=== PATIENT | female | born 1965 | race African-American/Black ===

== ENCOUNTER 2016-12-01 08:33 | Inpatient (IN) | payer SELFPAY ==
[~2016-12-01] VITALS: Ht 170.2 cm; Wt 70.3 kg
[~2016-12-01 08:33] MED LIST: AMLO10TA4 PO; ATOR10TA60 PO; CITA10TA8 PO; CITA20TA5 PO; DULO60CA44 PO; ESOM40CA PO; HYDR-971 PO; METO5TAB PO; OMEP20TA PO; ONDA4TAB10 SL; PANT40TA5 PO; PHEN100T82 PO; QUET100T4 PO; SUCR1TAB29 PO; TRAM50TA PO
[2016-12-01] MEDS ORDERED: IV NORMAL SALINE 1000ML BAG 1,000 ML IV SCH (08:47)
--- NOTE | 2016-12-01 08:57 | PHYS DOC ---
Past Medical History Past Medical History: Anxiety, Depression, GERD, High Cholesterol, Hypertension , P.U.D., URI, Other Additional Past Medical Histor: h. pylori Past Surgical History: Tubal ligation, Other Additional Past Surgical Histo: foot surgery, explor. adominal sx Alcohol Use: None Drug Use: Marijuana Adult General Chief Complaint Chief Complaint: ABDOMINAL PAIN HPI HPI Patient is a 51 year old female who presents with abdominal pain and vomiting. Patient states her symptoms started last night. Patient said too numerous to count episodes of vomiting. Patient states that she started passing coffee- ground emesis this morning. Patient has history of peptic ulcer disease and gastroparesis. Patient states that she has followed with Dr. Mccarty of gastroenterology in the past but has not seen him in several months. Patient states that she ran out of her medications for her stomach 5 days ago and was unable to refill them due to inability to pay for her medication. Patient rates the pain in her stomach as 10 out of 10 and states that it is located in her upper abdomen. Patient denies radiation of pain. Patient has not had any associated fever. Patient has not been able to tolerate any oral intake since onset of symptoms. Patient has not taken any medications to help with her symptoms. Review of Systems Review of Systems Constitutional: Denies fever or chills [] Eyes: Denies change in visual acuity, redness, or eye pain [] HENT: Denies nasal congestion or sore throat [] Respiratory: Denies cough or shortness of breath [] Cardiovascular: Denies chest pain or edema [] GI: Abdominal pain, nausea, vomiting, hematemesis [] : Denies dysuria or hematuria [] Musculoskeletal: Denies back pain or joint pain [] Integument: Denies rash or skin lesions [] Neurologic: Denies headache, focal weakness or sensory changes [] Current Medications Current Medications Current Medications Medications (Trade) Dose Ordered Sig/Emile Start Time Stop Time Status Last Admin Dose Admin Albuterol/ Ipratropium 3 ml 3 ml RTQID 12/01/16 10:00 12/02/16 09:59 Famotidine (Pepcid) 20 mg 1X ONCE 12/01/16 09:00 12/01/16 09:00 DC Fentanyl Citrate (Fentanyl 2ml Vial) 50 mcg PRN Q2HR PRN 12/01/16 09:30 12/02/16 09:29 Fentanyl Citrate 50 mcg 50 mcg PRN Q15MIN PRN 12/01/16 09:00 12/02/16 08:59 12/01/16 09:21 50 MCG Hydralazine HCl (Apresoline) 10 mg 1X ONCE 12/01/16 09:30 12/01/16 09:31 DC 12/01/16 09:37 10 MG Metoclopramide HCl (Reglan) 10 mg 1X ONCE 12/01/16 09:00 12/01/16 09:01 DC 12/01/16 08:59 10 MG Ondansetron HCl (Zofran) 4 mg PRN Q8HRS PRN 12/01/16 09:30 12/02/16 09:29 Pantoprazole Sodium (Protonix Vial) 40 mg 1X ONCE 12/01/16 09:00 12/01/16 09:01 DC 12/01/16 09:16 40 MG Pantoprazole Sodium 80 mg/ Sodium Chloride 100 ml @ 10 mls/hr Q10H 12/01/16 09:30 Potassium Chloride/Dextrose/ Sod Cl (KCl 20 Meq In D5W-1/2 NS) 1,000 ml @ 125 mls/hr Q8H 12/01/16 09:45 Sodium Chloride (Iv Sodium Chloride 0.9% 1000ml Bag) 1,000 ml @ 1,000 mls/hr Q1H 12/01/16 08:47 12/01/16 09:46 DC 12/01/16 09:19 1,000 MLS/HR Allergies Allergies Allergies Coded Allergies Type Severity Reaction Last Updated Verified Penicillins Allergy Intermediate 12/01/16 Yes Physical Exam Physical Exam Constitutional: Alert, afebrile, actively vomiting. [] HENT: Normocephalic, atraumatic, bilateral external ears normal, oropharynx dry , no oral exudates, nose normal. [] Eyes: PERRLA, EOMI, conjunctiva normal, no discharge. [] Neck: Normal range of motion, no tenderness, supple, no stridor. [] Cardiovascular: Tachycardia, regular rhythm, no murmur [] Lungs & Thorax: Bilateral breath sounds clear to auscultation [] Abdomen: Bowel sounds normal, soft, epigastric tenderness to palpation with guarding, no rebound tenderness, no masses, no pulsatile masses. [] Skin: Warm, dry, no erythema, no rash. [] Back: No tenderness, no CVA tenderness. [] Extremities: No tenderness, no cyanosis, no clubbing, ROM intact, no edema. [] Neurologic: Alert and oriented X 3, normal motor function, normal sensory function, no focal deficits noted. [] Current Patient Data Vital Signs Vital Signs Date Time Temp Pulse Resp B/P Pulse Ox O2 Delivery O2 Flow Rate FiO2 12/01/16 09:37 71 224/113 12/01/16 09:21 18 100 Room Air 12/01/16 08:35 97.9 97.9 Lab Values Laboratory Tests Test 12/01/16 08:40 White Blood Count 8.2x10^3/uL (4.0-11.0) Red Blood Count 5.41x10^6/uL (3.50-5.40) H Hemoglobin 14.5g/dL (12.0-15.5) Hematocrit 45.1% (36.0-47.0) Mean Corpuscular Volume 83fL (79-100) Mean Corpuscular Hemoglobin 27pg (25-35) Mean Corpuscular Hemoglobin Concent 32g/dL (31-37) Red Cell Distribution Width 16.0% (11.5-14.5) H Platelet Count 208x10^3/uL (140-400) Neutrophils (%) (Auto) 61% (31-73) Lymphocytes (%) (Auto) 33% (24-48) Monocytes (%) (Auto) 5% (0-9) Eosinophils (%) (Auto) 0% (0-3) Basophils (%) (Auto) 1% (0-3) Neutrophils # (Auto) 5.0x10^3uL (1.8-7.7) Lymphocytes # (Auto) 2.7x10^3/uL (1.0-4.8) Monocytes # (Auto) 0.4x10^3/uL (0.0-1.1) Eosinophils # (Auto) 0.0x10^3/uL (0.0-0.7) Basophils # (Auto) 0.0x10^3/uL (0.0-0.2) Sodium Level 144mmol/L (136-145) Potassium Level 2.5mmol/L (3.5-5.1) *L Chloride Level 104mmol/L (98-107) Carbon Dioxide Level 23mmol/L (21-32) Anion Gap 17 (6-14) H Blood Urea Nitrogen 11mg/dL (7-20) Creatinine 0.9mg/dL (0.6-1.0) Estimated GFR (Cockcroft-Gault) 79.6 BUN/Creatinine Ratio 12 (6-20) Glucose Level 164mg/dL (70-99) H Calcium Level 10.4mg/dL (8.5-10.1) H Total Bilirubin 0.7mg/dL (0.2-1.0) Aspartate Amino Transferase (AST) 15U/L (15-37) Alanine Aminotransferase (ALT) 14U/L (14-59) Alkaline Phosphatase 113U/L (46-116) Creatine Kinase 136U/L (26-192) Creatine Kinase MB (Mass) 0.6ng/mL (0.0-3.6) Creatine Kinase MB Relative Index 0.4% (0-4) Troponin I Quantitative < 0.017ng/mL (0.000-0.055) Total Protein 9.3g/dL (6.4-8.2) H Albumin 4.2g/dL (3.4-5.0) Albumin/Globulin Ratio 0.8 (1.0-1.7) L Lipase 114U/L (73-393) Laboratory Tests 12/01/16 08:40 Laboratory Tests 12/01/16 08:40 EKG EKG Interpreted by me: Heart rate 69, sinus rhythm, normal intervals, incomplete right bundle branch block, no acute ST/T-wave abnormalities present [] Radiology/Procedures Radiology/Procedures [facility] [address] [place] [address] IMAGING REPORT Signed PATIENT: DANIELA MANUEL ACCOUNT: [id number] : 1965 LOCATION: ER AGE: 51 SEX: F EXAM STATUS: REG ER ORD. PHYSICIAN: NABEEL QUIROGA MD REASON: abdominal pain, vomiting PROCEDURE: ACUTE ABDOMEN SERIES Examination: Acute abdomen series History: History of abdominal pain, vomiting blood Comparison: 02/15/2016 Findings: The cardiomediastinal silhouette grossly appears unremarkable. No evidence of free air noted under the hemidiaphragms. The bowel gas pattern appears unremarkable. Feces and gas project in the region of the rectum. Impression: 1. No acute cardiopulmonary findings. 2. Unremarkable bowel gas pattern. DICTATED and SIGNED BY: SAPPHIRE RADER MD DATE: 12/01/16 0934 CC: NABEEL QUIROGA MD; NO PCP ~ [] Course & Med Decision Making Course & Med Decision Making Pertinent Labs and Imaging studies reviewed. (See chart for details) Patient started on IV Reglan, Protonix, fentanyl, and IV fluids. Patient remained hypertensive requiring treatment with IV hydralazine. Patient continues to have abdominal pain and vomiting at this time. Patient does have mild but persistent hematemesis. Patient also found to have critically low potassium level at 2.5. The patient will require admission to the hospital for treatment of symptoms, electrolyte replacement through IV, and bowel rest. I spoke with Dr. Contreras who accepted care patient in hospital. A consult was placed to Dr. Mccarty of gastroenterology to follow with patient in hospital. Dragon Disclaimer Dragon Disclaimer This electronic medical record was generated, in whole or in part, using a voice recognition dictation system. Departure Departure Impression: Primary Impression: Intractable abdominal pain Additional Impressions: Vomiting Hypokalemia Accelerated hypertension Hematemesis Peptic ulcer disease Diabetes mellitus Disposition: 09 ADMITTED INPATIENT Admitting Physician: Other Condition: STABLE Referrals: NO PCP (PCP) Problem Qualifiers Additional Impressions: Vomiting Vomiting type: unspecified Vomiting Intractability: intractable Nausea presence: with nausea Qualified Code: R11.2 - Nausea with vomiting, unspecified Hematemesis Nausea presence: with nausea Qualified Code: K92.0 - Hematemesis Diabetes mellitus Diabetes mellitus type: type 2 Diabetes mellitus complication status: with hyperglycemia Diabetes mellitus half-way insulin use: unspecified intermodal customer service insulin use status Qualified Code: E11.65 - Type 2 diabetes mellitus with hyperglycemia NABEEL QUIROGA MD Dec 01, 2016 08:57
[2016-12-01] MEDS ORDERED: FAMOTIDINE 20 MG/2 ML VIAL IVP ONE (09:00)
[2016-12-01] MEDS ORDERED: PANTOPRAZOLE IV PUSH 40 MG VIAL. IVP ONE (09:00)
[2016-12-01] MEDS ORDERED: ONDANSETRON PF 4 MG/2 ML VIAL. IV ONE (09:00)
[2016-12-01] MEDS ORDERED: METOCLOPRAMIDE HCL 10 MG/2 ML VIAL. IV ONE (09:00)
[2016-12-01] MEDS: FENTANYL PF 100 MCG/2 ML VIAL. IV PRN ×5 (09:01→16:57)
[2016-12-01 09:05] LABS: BASO % 1 % (0-3); EOS % 0 % (0-3); HEMATOCRIT 45.1 % (36.0-47.0); HEMOGLOBIN 14.5 g/dL (12.0-15.5); LYMPH # 2.7 x10^3/uL (1.0-4.8); LYMPH % 33 % (24-48); MEAN CORPUSCULAR HEMOGLOBIN 27 pg (25-35); MEAN CORPUSCULAR HGB CONC 32 g/dL (31-37); MEAN CORPUSCULAR VOLUME 83 fL (79-100); MONO % 5 % (0-9); NEUT % 61 % (31-73); PLATELET COUNT 208 x10^3/uL (140-400); RED BLOOD COUNT 5.41 x10^6/uL (3.50-5.40); WHITE BLOOD COUNT 8.2 x10^3/uL (4.0-11.0)
[2016-12-01 09:23] LABS: ALBUMIN 4.2 g/dL (3.4-5.0); ALBUMIN/GLOBULIN RATIO 0.8 (1.0-1.7); CALCIUM 10.4 mg/dL (8.5-10.1); CREATININE 0.9 mg/dL (0.6-1.0); GFR 79.6; TOTAL BILIRUBIN 0.7 mg/dL (0.2-1.0); TOTAL PROTEIN 9.3 g/dL (6.4-8.2)
[2016-12-01 09:26] LABS: POTASSIUM 2.5 mmol/L (3.5-5.1)
[2016-12-01] MEDS ORDERED: hydrALAZINE 20 MG/ML VIAL. IVP ONE (09:30)
[2016-12-01 09:31] LABS: CKMB INDEX 0.4 % (0-4); CKMB MASS 0.6 ng/mL (0.0-3.6)
--- NOTE | 2016-12-01 09:38 | RAD ---
Examination: Acute abdomen series History: History of abdominal pain, vomiting blood Comparison: 02/15/2016 Findings: The cardiomediastinal silhouette grossly appears unremarkable. No evidence of free air noted under the hemidiaphragms. The bowel gas pattern appears unremarkable. Feces and gas project in the region of the rectum. Impression: 1. No acute cardiopulmonary findings. 2. Unremarkable bowel gas pattern.
--- NOTE | 2016-12-01 09:43 | EKG ---
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
[2016-12-01 09:54] LABS: BILIRUBIN,URINE NEGATIVE (NEG); GLUCOSE,URINE 100 mg/dL (NEG); NITRITE,URINE NEGATIVE (NEG); PH,URINE 7.5; PROTEIN,URINE NEGATIVE (NEG-TRACE); UROBILINOGEN,URINE 0.2 mg/dL (0.2 mg/dL)
[2016-12-01] MEDS: POTASSIUM CL 20MEQ D5-0.45NACL 1,000 ML IV SCH ×2 (09:59→20:45)
--- NOTE | 2016-12-01 10:16 | ACF ---
Admission Forms Criteria ABDOMINAL PAIN Clinical Indications for Admission to Inpatient Care (Place 'X' for any and all applicable criteria): Admission is indicated for ANY ONE of the following(1)(2)(3)(4)(5): [X]I. Inpatient admission required rather than observation care (Also use Abdominal Pain: Observation Care, as appropriate) because of ANY ONE of the following: [X]a) Severe pain requiring acute inpatient management [ ]b) Identification of etiology/finding that requires inpatient care (eg, aortic dissection, free air) [ ]c) Absent bowel sounds with complete ileus(6) [ ]d) Suspected toxic megacolon [ ]e) Severe electrolyte abnormalities requiring inpatient care [ ]f) High fever or infection requiring inpatient admission as indicated by ANY ONE of following(7)(8): [ ] i) Appropriate outpatient or observational care antimicrobial treatment unavailable, not effective, or not feasible [ ] ii) Documented bacteremia [ ] iii) Temperature > 104.9 degrees F (oral) [ ] iv) T >103.1 F (oral) or < 96.8 F(rectal) that does not respond to all emergency treatment measures [ ]g) Signs of intestinal obstruction [B] [ ]h) Hemodynamic instability [ ]i) IV fluid to replace significant ongoing losses (greater than 3 L/m2 per day) (12)(13) [ ]j) Percutaneous or open drainage (eg, abscess, biliary tract ) procedures [ ]k) Parenteral nutrition regimen that must be implemented on inpatient basis [ ]l) Other condition,treatment or monitoring requiring inpatient admission. [ ]II. Peritoneal signs present [ ]III. Surgery needed that cannot be performed on an ambulatory basis. [ ]IV. Evaluation requires patient to not eat or drink for extended period ( eg, more than 24 hours). [ ]V. Contraindications and/or Inappropriate clinical situations for Observational Care in patients with abdominal pain, when ANY ONE of the following is required: [ ]a) Thorough evaluation is required to prevent catastrophic events due to delays in diagnosing (e.g.Mesenteric ischemia) 1,3 [ ]b) Patient with severe pathology or with chronic symptoms unlikely to improve in the ED stay (3) [ ]. General contraindications and/or Inappropriate clinical situations for Observational Care in patients with abdominal pain, when ANY ONE of the following is required: [ ]a) Prediction of prolongation of LOS based on ANY ONE of the following may be considered as a contraindication for observational care 2, 3, 4, 5, 6, 7, 8, 9, 10, 11 [ ]i) Age > 65 yrs. [ ]ii) Patient arriving by ambulance [ ]iii) Patient with high acuity [ ]iv) Patient requiring vital sign monitoring [ ]v) Patient on IV medication [ ]b) Systolic blood pressures 180mmHg 3,12 [ ]c) Patient with altered mental status including delirium and other alteration of consciousness, (3) [ ]d) Patient whose discharge disposition will be to a residential home or rehabilitation home should not be managed in Emergency Department Observation Unit. CMS rule requires 3 days hospital stay before such placement.3,13 [ ]e) Patient with failure to thrive due to broad array of etiologies 3,16,17 [ ]f) Inability to ambulate 3,14 Extended stay beyond goal length of stay may be needed for(2)(3): [ ]a) Persistent abdominal pain with suspected intra-abdominal process [ ]b) Diagnosed condition requiring continued stay (e.g., pancreatitis, complicated diverticulitis) [ ]c) Surgery (e.g., colectomy) The original [facility] content created by [employer] has been revised. The portions of the content which have been revised are identified through the use of italic text or in bold, and [facility] has neither reviewed nor approved the modified material.All other unmodified content is copyright [facility]. Please see references footnoted in the original [facility] edition 2016 Admission Criteria Met?: Yes QAMAR OSUNA Dec 01, 2016 10:16
[2016-12-01 10:30] LABS: BACTERIA,URINE FEW /HPF (0-FEW); SQUAMOUS EPITHELIAL CELL,UR FEW /LPF; WBC,URINE OCC /HPF (0-4)
[2016-12-01] MEDS: PANTOPRAZOLE SODIUM IV 80 MG in IV NORMAL SALINE 100ML 100 ML IV SCH ×2 (10:33→19:30)
[2016-12-01 11:00] VITALS: BP 194/117
[2016-12-01] MEDS ORDERED: GABA300C8 PO (11:09)
[2016-12-01] MEDS ORDERED: UBID200C4 PO (11:09)
[2016-12-01] MEDS ORDERED: AMLO10TA2 PO (11:16)
[2016-12-01] MEDS: ONDANSETRON PF 4 MG/2 ML VIAL. IV PRN ×2 (11:47→20:11)
[2016-12-01] MEDS: IPRATRPIUM/ALBUTEROL 0.5/2.5MG 3 ML NEBU. NEB SCH ×3 (12:17→19:39)
--- NOTE | 2016-12-01 14:29 | PDOC2 ---
GI CONSULT Reason For Consult: N, V, abdominal pain. HPI: HPI: 51 y/o female known to me. Admitted this occasion with epigastric pain, nausea and vomiting. H/o GERD and gastroparesis, formerly on PPI and metoclopramide though ran out due inability to afford, with current issues. Minor amount of blood in emesis. No melena or elevated BUN/Cr ratio. H/o prior EGDs at with H.pylori identified and treated, but never apparently documented ulcer. No h/o GB, liver or pancreatic issues. Smokes some, including MJ. Denies alcohol. No diarrhea, constipation, or hematochezia. H/o normal colonoscopy at some point, date unverified. PMH: PMH: HTN, depression, RA. Prior ORIF right ankle. FH: Family History: CAD, DM, Hypertension Social History: Smoke: <1 pack per day ALCOHOL: none Drugs: Marijuana ROS: GEN: Denies fevers, chills, sweats HEENT: Denies blurred vision, sore throat CV: Denies chest pain RESP: Denies shortness of air, cough GI: Per HPI : Denies hematuria, dysuria ENDO: Denies weight changes NEURO: Denies confusion, dizziness MSK: Denies weakness, joint pain/swelling SKIN: Denies jaundice, pruritus VItals: Vitals: Vital Signs Date Time Temp Pulse Resp B/P Pulse Ox O2 Delivery O2 Flow Rate FiO2 12/01/16 14:15 14 95 Room Air 12/01/16 11:00 97.9 103 194/117 97.9 Labs: Labs: Laboratory Tests Test 12/01/16 08:40 12/01/16 09:45 White Blood Count 8.2x10^3/uL (4.0-11.0) Red Blood Count 5.41x10^6/uL (3.50-5.40) Hemoglobin 14.5g/dL (12.0-15.5) Hematocrit 45.1% (36.0-47.0) Mean Corpuscular Volume 83fL (79-100) Mean Corpuscular Hemoglobin 27pg (25-35) Mean Corpuscular Hemoglobin Concent 32g/dL (31-37) Red Cell Distribution Width 16.0% (11.5-14.5) Platelet Count 208x10^3/uL (140-400) Neutrophils (%) (Auto) 61% (31-73) Lymphocytes (%) (Auto) 33% (24-48) Monocytes (%) (Auto) 5% (0-9) Eosinophils (%) (Auto) 0% (0-3) Basophils (%) (Auto) 1% (0-3) Neutrophils # (Auto) 5.0x10^3uL (1.8-7.7) Lymphocytes # (Auto) 2.7x10^3/uL (1.0-4.8) Monocytes # (Auto) 0.4x10^3/uL (0.0-1.1) Eosinophils # (Auto) 0.0x10^3/uL (0.0-0.7) Basophils # (Auto) 0.0x10^3/uL (0.0-0.2) Sodium Level 144mmol/L (136-145) Potassium Level 2.5mmol/L (3.5-5.1) Chloride Level 104mmol/L (98-107) Carbon Dioxide Level 23mmol/L (21-32) Anion Gap 17 (6-14) Blood Urea Nitrogen 11mg/dL (7-20) Creatinine 0.9mg/dL (0.6-1.0) Estimated GFR (Cockcroft-Gault) 79.6 BUN/Creatinine Ratio 12 (6-20) Glucose Level 164mg/dL (70-99) Calcium Level 10.4mg/dL (8.5-10.1) Total Bilirubin 0.7mg/dL (0.2-1.0) Aspartate Amino Transf (AST/SGOT) 15U/L (15-37) Alanine Aminotransferase (ALT/SGPT) 14U/L (14-59) Alkaline Phosphatase 113U/L (46-116) Creatine Kinase 136U/L (26-192) Creatine Kinase MB (Mass) 0.6ng/mL (0.0-3.6) Creatine Kinase MB Relative Index 0.4% (0-4) Troponin I Quantitative < 0.017ng/mL (0.000-0.055) Total Protein 9.3g/dL (6.4-8.2) Albumin 4.2g/dL (3.4-5.0) Albumin/Globulin Ratio 0.8 (1.0-1.7) Lipase 114U/L (73-393) Urine Collection Type Unknown Urine Color Yellow Urine Clarity Clear Urine pH 7.5 Urine Specific [place] 1.010 Urine Protein Negativemg/dL (NEG-TRACE) Urine Glucose (UA) 100mg/dL (NEG) Urine Ketones (Stick) 15mg/dL (NEG) Urine Blood Negative (NEG) Urine Nitrite Negative (NEG) Urine Bilirubin Negative (NEG) Urine Urobilinogen Dipstick 0.2mg/dL (0.2 mg/dL) Urine Leukocyte Esterase Negative (NEG) Urine RBC 3-5/HPF (0-2) Urine WBC Occ/HPF (0-4) Urine Squamous Epithelial Cells Few/LPF Urine Bacteria Few/HPF (0-FEW) Urine Mucus Slight/LPF Normal hemoglobin. Allergies: Coded Allergies: Penicillins (Verified Allergy, Intermediate, 12/01/16) Medications: Current Medications Medications (Trade) Dose Ordered Sig/Emile Route PRN Reason Start Time Stop Time Status Last Admin Dose Admin Fentanyl Citrate 50 mcg 50 mcg PRN Q15MIN PRN IV PAIN GREATER THAN 11/2512/01/16 09:00 12/02/16 08:59 12/01/16 10:31 Sodium Chloride (Iv Sodium Chloride 0.9% 1000ml Bag) 1,000 ml @ 1,000 mls/hr Q1H IV 12/01/16 08:47 12/01/16 09:46 DC 12/01/16 09:19 Metoclopramide HCl (Reglan) 10 mg 1X ONCE IV 12/01/16 09:00 12/01/16 09:01 DC 12/01/16 08:59 Pantoprazole Sodium (Protonix Vial) 40 mg 1X ONCE IVP 12/01/16 09:00 12/01/16 09:01 DC 12/01/16 09:16 Hydralazine HCl (Apresoline) 10 mg 1X ONCE IVP 12/01/16 09:30 12/01/16 09:31 DC 12/01/16 09:37 Ondansetron HCl (Zofran) 4 mg PRN Q8HRS PRN IV NAUSEA/VOMITING 12/01/16 09:30 12/02/16 09:29 12/01/16 11:47 Fentanyl Citrate (Fentanyl 2ml Vial) 50 mcg PRN Q2HR PRN IV PAIN 12/01/16 09:30 12/02/16 09:29 12/01/16 14:15 Albuterol/ Ipratropium 3 ml 3 ml RTQID NEB 12/01/16 10:00 12/02/16 09:59 12/01/16 12:17 Pantoprazole Sodium 80 mg/ Sodium Chloride 100 ml @ 10 mls/hr Q10H IV 12/01/16 09:30 12/01/16 10:33 Potassium Chloride/Dextrose/ Sod Cl (KCl 20 Meq In D5W-1/2 NS) 1,000 ml @ 125 mls/hr Q8H IV 12/01/16 09:45 12/01/16 09:59 Imaging: Imaging: Acute abdominal series unremarkable. PE: GEN: Appears uncomfortable, but in NAD. HEENT: Atraumatic, PERRLA LUNGS: CTAB HEART: RRR, no murmurs ABD: NABS, soft with primarily epigastric tenderness, no masses EXTREMITY: No edema SKIN: No rashes, no jaundice NEURO/PSYCH: A & O 3 A/P: A/P: IMP: 1. GERD/gastroparesis with recurrent symptoms due to financial medical non- compliance. 2. H/o H.pylori, treated. 3. Normal prior colonoscopy. REC: 1. IV PPI and metoclopramide until able to take po, then po transition. Would use Reglan suspension if possible as better emptying from stomach. 2. Observe for any meaningful UGI bleeding; would withhold EGD unless occurs as unlikely to alter therapy. Thank you for allowing me to assist in the care of this patient. Please call if questions. KATIE GOMEZ MD Dec 01, 2016 14:29
[2016-12-01] MEDS ORDERED: PROMETHAZINE 25 MG in IV NORMAL SALINE 50ML 50 ML IV PRN (14:45)
[2016-12-01] MEDS ORDERED: ENALAPRILAT 2.5 MG/2 ML VIAL. IV PRN (14:45)
[2016-12-01 15:02] VITALS: BP 222/127
[2016-12-01] MEDS ORDERED: POTASSIUM CHLORIDE 10MEQ 100 ML IV SCH (17:00)
[2016-12-01 19:00] VITALS: BP 197/124
[2016-12-01] MEDS ORDERED: hydrALAZINE 20 MG/ML VIAL. IVP PRN (19:00)
[2016-12-01] MEDS: POTASSIUM CHLORIDE 10MEQ 100 ML IV SCH (20:28)
[2016-12-01 21:00] VITALS: BP 154/116
[2016-12-01] MEDS: GABAPENTIN 300 MG CAPSULE. PO SCH (21:54)
[2016-12-01] MEDS: METOCLOPRAMIDE HCL 10 MG/2 ML VIAL. IV SCH ×2 (21:55→22:00)
--- NOTE | 2016-12-01 22:28 | HP ---
ADMIT DATE: 12/01/2016 CHIEF COMPLAINT: Nausea, vomiting, abdominal pain. HISTORY OF PRESENT ILLNESS: The patient is a 51-year-old -Thai woman who presented to the Emergency Room with epigastric pain, nausea, vomiting. This actually is a recurrent admission reason for her. She has known GERD as well as gastroparesis, although she ran out of her PPI and Reglan due to inability to afford. At this moment, likely prompted current symptoms. She denies any hematemesis, any melena any hematochezia. She relates that she recently had an EGD at during which H. pylori was found and treated. She denies any history of pancreatic disease or gallbladder stones. PAST MEDICAL HISTORY: GERD, gastroparesis, hypertension, depression, rheumatoid arthritis, status post ORIF of right ankle. FAMILY HISTORY: CAD, diabetes, hypertension. SOCIAL HISTORY: Lives with her mother, smokes less than 1 pack a day. Denies any alcohol use, positive for cannabis. ALLERGIES: PENICILLIN. MEDICATIONS: MAR reconciled with home medications. REVIEW OF SYSTEMS: The patient positive as per HPI. Denies any fevers, chills. Denies any myalgias, arthralgias. The rest of organ system review is negative. PHYSICAL EXAMINATION: VITAL SIGNS: From today show a blood pressure of 222/127, heart rate of 91, respiratory rate at 20. She is afebrile. GENERAL: This is a 51-year-old -Thai woman with GERD, gastroparesis, hypertension who presents after running out of her Reglan and PPI due to financial issues. She will be admitted, placed on IV fluids, IV Reglan around the clock to help with gastroparesis, Zofran p.r.n. for additional nausea. We will monitor her electrolytes and replete as indicated. Potassium currently is severely depleted. We will give IV as soon as access is established. Currently in hypertensive urgency. We will start hydralazine IV p.r.n. for the time being. Restart home medications when able to take p.o. DOMENICO BLANTON MD DR: MYAH/lev JOB#: [id number] / [id number] SALAS
[2016-12-01 23:00] VITALS: BP 171/120
[2016-12-02] VITALS (9 sets, daily range): BP systolic 97–193; BP diastolic 70–125
[2016-12-02] MEDS: FENTANYL PF 100 MCG/2 ML VIAL. IV PRN (00:23)
[2016-12-02] MEDS: POTASSIUM CHLORIDE 10MEQ 100 ML IV SCH ×7 (01:02→06:21)
[2016-12-02 05:01] LABS: BASO # 0.1 x10^3/uL (0.0-0.2); BASO % 0 % (0-3); EOS % 0 % (0-3); HEMATOCRIT 50.8 % (36.0-47.0); HEMOGLOBIN 16.1 g/dL (12.0-15.5); LYMPH # 2.4 x10^3/uL (1.0-4.8); LYMPH % 16 % (24-48); MEAN CORPUSCULAR HEMOGLOBIN 27 pg (25-35); MEAN CORPUSCULAR HGB CONC 32 g/dL (31-37); MEAN CORPUSCULAR VOLUME 83 fL (79-100); MONO % 6 % (0-9); NEUT % 78 % (31-73); PLATELET COUNT 227 x10^3/uL (140-400); RED BLOOD COUNT 6.09 x10^6/uL (3.50-5.40); RED CELL DISTRIBUTION WIDTH 16.8 % (11.5-14.5); WHITE BLOOD COUNT 15.3 x10^3/uL (4.0-11.0)
[2016-12-02 05:13] LABS: CALCIUM 10.7 mg/dL (8.5-10.1); CREATININE 1.2 mg/dL (0.6-1.0); GFR 57.1; POTASSIUM 3.7 mmol/L (3.5-5.1)
[2016-12-02] MEDS: PANTOPRAZOLE SODIUM IV 80 MG in IV NORMAL SALINE 100ML 100 ML IV SCH ×2 (05:30→15:30)
[2016-12-02] MEDS: METOCLOPRAMIDE HCL 10 MG/2 ML VIAL. IV SCH ×3 (07:02→21:17)
[2016-12-02] MEDS: PANTOPRAZOLE 40 MG TABLET. PO SCH ×2 (09:22→17:16)
--- NOTE | 2016-12-02 09:22 | PDOC ---
G I PROGRESS NOTE Subjective Some nausea, but no further vomiting. NO blood seen. Physical Exam Lungs clear. RRR Abdomen soft with mild epigastric tenderness. Review of Relevant I have reviewed the following items starr (where applicable) has been applied. Labs Laboratory Tests Test 12/01/16 08:40 12/01/16 09:45 12/02/16 03:31 White Blood Count 8.2x10^3/uL (4.0-11.0) 15.3x10^3/uL (4.0-11.0) Red Blood Count 5.41x10^6/uL (3.50-5.40) 6.09x10^6/uL (3.50-5.40) Hemoglobin 14.5g/dL (12.0-15.5) 16.1g/dL (12.0-15.5) Hematocrit 45.1% (36.0-47.0) 50.8% (36.0-47.0) Mean Corpuscular Volume 83fL (79-100) 83fL (79-100) Mean Corpuscular Hemoglobin 27pg (25-35) 27pg (25-35) Mean Corpuscular Hemoglobin Concent 32g/dL (31-37) 32g/dL (31-37) Red Cell Distribution Width 16.0% (11.5-14.5) 16.8% (11.5-14.5) Platelet Count 208x10^3/uL (140-400) 227x10^3/uL (140-400) Neutrophils (%) (Auto) 61% (31-73) 78% (31-73) Lymphocytes (%) (Auto) 33% (24-48) 16% (24-48) Monocytes (%) (Auto) 5% (0-9) 6% (0-9) Eosinophils (%) (Auto) 0% (0-3) 0% (0-3) Basophils (%) (Auto) 1% (0-3) 0% (0-3) Neutrophils # (Auto) 5.0x10^3uL (1.8-7.7) 11.9x10^3uL (1.8-7.7) Lymphocytes # (Auto) 2.7x10^3/uL (1.0-4.8) 2.4x10^3/uL (1.0-4.8) Monocytes # (Auto) 0.4x10^3/uL (0.0-1.1) 1.0x10^3/uL (0.0-1.1) Eosinophils # (Auto) 0.0x10^3/uL (0.0-0.7) 0.0x10^3/uL (0.0-0.7) Basophils # (Auto) 0.0x10^3/uL (0.0-0.2) 0.1x10^3/uL (0.0-0.2) Sodium Level 144mmol/L (136-145) 142mmol/L (136-145) Potassium Level 2.5mmol/L (3.5-5.1) 3.7mmol/L (3.5-5.1) Chloride Level 104mmol/L (98-107) 101mmol/L (98-107) Carbon Dioxide Level 23mmol/L (21-32) 22mmol/L (21-32) Anion Gap 17 (6-14) 19 (6-14) Blood Urea Nitrogen 11mg/dL (7-20) 14mg/dL (7-20) Creatinine 0.9mg/dL (0.6-1.0) 1.2mg/dL (0.6-1.0) Estimated GFR (Cockcroft-Gault) 79.6 57.1 BUN/Creatinine Ratio 12 (6-20) Glucose Level 164mg/dL (70-99) 121mg/dL (70-99) Calcium Level 10.4mg/dL (8.5-10.1) 10.7mg/dL (8.5-10.1) Total Bilirubin 0.7mg/dL (0.2-1.0) Aspartate Amino Transf (AST/SGOT) 15U/L (15-37) Alanine Aminotransferase (ALT/SGPT) 14U/L (14-59) Alkaline Phosphatase 113U/L (46-116) Creatine Kinase 136U/L (26-192) Creatine Kinase MB (Mass) 0.6ng/mL (0.0-3.6) Creatine Kinase MB Relative Index 0.4% (0-4) Troponin I Quantitative < 0.017ng/mL (0.000-0.055) Total Protein 9.3g/dL (6.4-8.2) Albumin 4.2g/dL (3.4-5.0) Albumin/Globulin Ratio 0.8 (1.0-1.7) Lipase 114U/L (73-393) Urine Collection Type Unknown Urine Color Yellow Urine Clarity Clear Urine pH 7.5 Urine Specific [place] 1.010 Urine Protein Negativemg/dL (NEG-TRACE) Urine Glucose (UA) 100mg/dL (NEG) Urine Ketones (Stick) 15mg/dL (NEG) Urine Blood Negative (NEG) Urine Nitrite Negative (NEG) Urine Bilirubin Negative (NEG) Urine Urobilinogen Dipstick 0.2mg/dL (0.2 mg/dL) Urine Leukocyte Esterase Negative (NEG) Urine RBC 3-5/HPF (0-2) Urine WBC Occ/HPF (0-4) Urine Squamous Epithelial Cells Few/LPF Urine Bacteria Few/HPF (0-FEW) Urine Mucus Slight/LPF Magnesium Level 1.6mg/dL (1.8-2.4) Laboratory Tests Test 12/01/16 09:45 12/02/16 03:31 Urine Collection Type Unknown Urine Color Yellow Urine Clarity Clear Urine pH 7.5 Urine Specific [place] 1.010 Urine Protein Negativemg/dL (NEG-TRACE) Urine Glucose (UA) 100mg/dL (NEG) Urine Ketones (Stick) 15mg/dL (NEG) Urine Blood Negative (NEG) Urine Nitrite Negative (NEG) Urine Bilirubin Negative (NEG) Urine Urobilinogen Dipstick 0.2mg/dL (0.2 mg/dL) Urine Leukocyte Esterase Negative (NEG) Urine RBC 3-5/HPF (0-2) Urine WBC Occ/HPF (0-4) Urine Squamous Epithelial Cells Few/LPF Urine Bacteria Few/HPF (0-FEW) Urine Mucus Slight/LPF White Blood Count 15.3x10^3/uL (4.0-11.0) Red Blood Count 6.09x10^6/uL (3.50-5.40) Hemoglobin 16.1g/dL (12.0-15.5) Hematocrit 50.8% (36.0-47.0) Mean Corpuscular Volume 83fL (79-100) Mean Corpuscular Hemoglobin 27pg (25-35) Mean Corpuscular Hemoglobin Concent 32g/dL (31-37) Red Cell Distribution Width 16.8% (11.5-14.5) Platelet Count 227x10^3/uL (140-400) Neutrophils (%) (Auto) 78% (31-73) Lymphocytes (%) (Auto) 16% (24-48) Monocytes (%) (Auto) 6% (0-9) Eosinophils (%) (Auto) 0% (0-3) Basophils (%) (Auto) 0% (0-3) Neutrophils # (Auto) 11.9x10^3uL (1.8-7.7) Lymphocytes # (Auto) 2.4x10^3/uL (1.0-4.8) Monocytes # (Auto) 1.0x10^3/uL (0.0-1.1) Eosinophils # (Auto) 0.0x10^3/uL (0.0-0.7) Basophils # (Auto) 0.1x10^3/uL (0.0-0.2) Sodium Level 142mmol/L (136-145) Potassium Level 3.7mmol/L (3.5-5.1) Chloride Level 101mmol/L (98-107) Carbon Dioxide Level 22mmol/L (21-32) Anion Gap 19 (6-14) Blood Urea Nitrogen 14mg/dL (7-20) Creatinine 1.2mg/dL (0.6-1.0) Estimated GFR (Cockcroft-Gault) 57.1 Glucose Level 121mg/dL (70-99) Calcium Level 10.7mg/dL (8.5-10.1) Magnesium Level 1.6mg/dL (1.8-2.4) Spurious hemoglobin value? Certainly didn't fall. Medications Current Medications Fentanyl Citrate 50 mcg 50 mcg PRN Q15MIN PRN IV PAIN GREATER THAN 3/10 Last administered on 12/01/16 10:31; Start 12/01/16 at 09:00; Stop 12/02/16 at 08:59 ; Status DC Sodium Chloride (Iv Sodium Chloride 0.9% 1000ml Bag) 1,000 ml @ 1,000 mls/hr Q1H IV Last administered on 12/01/16 09:19; Start 12/01/16 at 08:47; Stop at 09:46; Status DC Ondansetron HCl (Zofran) 4 mg 1X ONCE IV ; Start 12/01/16 at 09:00; Stop at 09:00; Status DC Famotidine (Pepcid) 20 mg 1X ONCE IVP ; Start 12/01/16 at 09:00; Stop 12/01/16 at 09:00; Status DC Metoclopramide HCl (Reglan) 10 mg 1X ONCE IV Last administered on 12/01/16 08 :59; Start 12/01/16 at 09:00; Stop 12/01/16 at 09:01; Status DC Pantoprazole Sodium (Protonix Vial) 40 mg 1X ONCE IVP Last administered on 09:16; Start 12/01/16 at 09:00; Stop 12/01/16 at 09:01; Status DC Hydralazine HCl (Apresoline) 10 mg 1X ONCE IVP Last administered on 12/01/16 09:37; Start 12/01/16 at 09:30; Stop 12/01/16 at 09:31; Status DC Ondansetron HCl (Zofran) 4 mg PRN Q8HRS PRN IV NAUSEA/VOMITING Last administered on 12/01/16 20:11; Start 12/01/16 at 09:30; Stop 12/02/16 at 09:29 Fentanyl Citrate (Fentanyl 2ml Vial) 50 mcg PRN Q2HR PRN IV PAIN Last administered on 12/02/16 00:23; Start 12/01/16 at 09:30; Stop 12/02/16 at 09:29 Albuterol/ Ipratropium 3 ml 3 ml RTQID NEB Last administered on 12/01/16 12:17 ; Start 12/01/16 at 10:00; Stop 12/02/16 at 09:59 Pantoprazole Sodium 80 mg/ Sodium Chloride 100 ml @ 10 mls/hr Q10H IV Last administered on 12/01/16 10:33; Start 12/01/16 at 09:30 Potassium Chloride/Dextrose/ Sod Cl (KCl 20 Meq In D5W-1/2 NS) 1,000 ml @ 125 mls/hr Q8H IV Last administered on 3/16/17at 20:45; Start 12/01/16 at 09:45 Enalaprilat 2.5 mg 2.5 mg PRN Q6HRS PRN IV SBP greater than 160; Start at 14:45 Promethazine HCl 25 mg/Sodium Chloride 51 ml @ 151.5 mls/ hr PRN Q6HRS PRN IV NAUSEA/VOMITING; Start 12/01/16 at 14:45 Potassium Chloride (KCl Premix 10meq) 100 ml @ 100 mls/hr Q1H IV ; Start at 17:00; Stop 12/01/16 at 20:59; Status Cancel Amlodipine Besylate (Norvasc) 10 mg DAILY PO ; Start 12/02/16 at 09:00 Atorvastatin Calcium (Lipitor) 10 mg DAILY PO ; Start 12/02/16 at 09:00 Citalopram Hydrobromide (Celexa) 10 mg DAILY PO ; Start 12/02/16 at 09:00 Gabapentin (Neurontin) 300 mg TID PO Last administered on 12/01/16 21:54; Start 12/01/16 at 21:00 Acetaminophen/ Hydrocodone Bitart (Lortab 5/325) 1 tab PRN Q6HRS PRN PO PAIN; Start 12/01/16 at 19:00 Pantoprazole Sodium (Protonix) 40 mg BIDAC PO ; Start 12/02/16 at 07:30 Tramadol HCl (Ultram) 50 mg PRN Q6HRS PRN PO MODERATE PAIN; Start 12/01/16 at 19:00 Hydralazine HCl (Apresoline) 10 mg PRN Q4HRS PRN IVP HTN; Start 12/01/16 at 19: 00 Metoclopramide HCl 10 mg 10 mg Q8HRS IV Last administered on 12/02/16 07:02; Start 12/01/16 at 22:00 Potassium Chloride (KCl Premix 10meq) 100 ml @ 100 mls/hr Q1H IV Last administered on 12/02/16 06:21; Start 12/01/16 at 19:30; Stop 12/02/16 at 03:29 ; Status DC Active Scripts Active [place] 5-325 Tablet (Acetaminophen/Hydrocodone Bitart) 1 Each Tablet 1 Tab PO PRN Q6HRS PRN Carafate (Sucralfate) 1 Gm Tablet 1 Tab PO QID Omeprazole 20 Mg Tablet. 20 Mg PO BID Metoclopramide Hcl 5 Mg Tablet 5 Mg PO PRN BFRMEALHC PRN Celexa (Citalopram Hydrobromide) 10 Mg Tablet 10 Mg PO DAILY Tramadol Hcl 50 Mg Tablet 50 Mg PO PRN Q6HRS PRN Zofran Odt (Ondansetron) 4 Mg Tab.rapdis 1 Tab SL Q8HRS Pantoprazole Sodium 40 Mg Tablet. 40 Mg PO BIDAC Reported Amlodipine Besylate 10 Mg Tablet 10 Mg PO DAILY Gabapentin 300 Mg Capsule 300 Mg PO TID Co Q-10 (Ubidecarenone) 200 Mg Capsule 200 Mg PO BID Atorvastatin Calcium 10 Mg Tablet 1 Tab PO DAILY Vitals/I & O Vital Sign - Last 24 Hours 12/01/16 12/01/16 12/01/16 12/01/16 09:21 09:30 09:37 10:00 Pulse 74 71 80 Resp 18 18 18 B/P 224/113 224/113 211/109 Pulse Ox 100 99 98 O2 Delivery Room Air Room Air Room Air 12/01/16 12/01/16 12/01/16 12/01/16 10:15 10:31 10:55 11:00 Temp 97.9 97.9 Pulse 82 103 Resp 18 16 20 B/P 190/99 194/117 Pulse Ox 99 95 100 O2 Delivery Room Air Room Air Room Air Room Air 12/01/16 12/01/16 12/01/16 12/01/16 11:01 12:19 14:15 15:02 Temp 98.8 98.8 Pulse 91 Resp 14 14 20 B/P 222/127 Pulse Ox 95 95 95 99 O2 Delivery Room Air Room Air Room Air Room Air 12/01/16 12/01/16 12/01/16 12/01/16 16:57 19:00 20:00 21:00 Temp 100.2 99.5 100.2 99.5 Pulse 105 144 Resp 20 20 20 B/P 197/124 154/116 Pulse Ox 99 99 100 O2 Delivery Room Air Room Air Room Air Room Air 12/01/16 12/02/16 12/02/16 12/02/16 23:00 00:23 00:55 03:00 Temp 98.8 99.0 98.8 99.0 Pulse 138 127 Resp 20 20 18 20 B/P 171/120 141/102 Pulse Ox 99 99 99 95 O2 Delivery Room Air Room Air Room Air Room Air 12/02/16 12/02/16 03:44 07:00 Temp 99.5 99.5 Pulse 111 153 Resp 18 B/P 136/83 193/125 Pulse Ox 96 O2 Delivery Room Air Intake and Output 12/01/16 12/01/16 12/02/16 15:00 23:00 07:00 Intake Total 500 ml 240 ml Balance 500 ml 240 ml Problem List Problems Medical Problems: (1) Accelerated hypertension Status: Acute (2) Diabetes mellitus Status: Acute (3) Hematemesis Status: Acute (4) Hypokalemia Status: Acute (5) Intractable abdominal pain Status: Acute (6) Peptic ulcer disease Status: Acute (7) Vomiting Status: Acute Assessment GERD Gastroparesis. Plan of Care: Continue current Tx, Mgmt Plan of Care Note Will try clears. If does OK with these, po PPI and Reglan suspension and advance diet. I'm off the weekend. Ddr. Propeck covering. KATIE GOMEZ MD Dec 02, 2016 09:22
[2016-12-02] MEDS: ATORVASTATIN CALCIUM 10 MG TABLET. PO SCH (09:23)
[2016-12-02] MEDS: GABAPENTIN 300 MG CAPSULE. PO SCH ×3 (09:23→21:17)
[2016-12-02] MEDS: AMLODIPINE BESYLATE 10 MG TABLET PO SCH (09:24)
[2016-12-02] MEDS: TRAMADOL 50 MG TABLET. PO PRN ×2 (09:25→21:17)
[2016-12-02] MEDS: CITALOPRAM 10 MG TABLET. PO SCH (09:25)
[2016-12-02] MEDS: ONDANSETRON PF 4 MG/2 ML VIAL. IV PRN (09:26)
[2016-12-02] MEDS: POTASSIUM CL 20MEQ D5-0.45NACL 1,000 ML IV SCH ×3 (09:28→17:19)
[2016-12-02] MEDS: IPRATRPIUM/ALBUTEROL 0.5/2.5MG 3 ML NEBU. NEB SCH (09:40)
[2016-12-02] MEDS: HYDROCODONE/APAP 5/325MG TABLET. PO PRN ×2 (09:49→17:17)
[2016-12-02] MEDS ORDERED: PROCHLORPERAZINE 10 MG/2 ML VIAL. IV PRN (12:15)
--- NOTE | 2016-12-02 12:29 | PDOC ---
PROGRESS NOTES Chief Complaint Chief Complaint Nausea, vomiting, abdominal pain - intractable abdominal pain - hypokalemia, resolved - GERD - gastroparesis - hypertension - diabetes - depression - rheumatoid arthritis - status post ORIF of right ankle. History of Present Illness History of Present Illness Patient in obvious discomfort when evaluated this AM. Complaining of abdominal pain, dizziness, nausea, and vomiting. WBC now 15.2 from 8.2. Acute abdominal series negative. Pt agreeable to add Compazine for nausea and starting Flagyl and Levaquin. Vitals Vitals Vital Signs Date Time Temp Pulse Resp B/P Pulse Ox O2 Delivery O2 Flow Rate FiO2 12/02/16 11:00 99.3 136 18 132/84 96 Room Air 99.3 Physical Exam General: Alert, Cooperative, moderate distress Heart: Regular rate, Normal S1 Lungs: Clear Abdomen: Soft, Other (diffuse tenderness) Extremities: No cyanosis, No edema Skin: No significant lesion Labs LABS Laboratory Tests Test 12/02/16 03:31 White Blood Count 15.3x10^3/uL (4.0-11.0) Red Blood Count 6.09x10^6/uL (3.50-5.40) Hemoglobin 16.1g/dL (12.0-15.5) Hematocrit 50.8% (36.0-47.0) Mean Corpuscular Volume 83fL (79-100) Mean Corpuscular Hemoglobin 27pg (25-35) Mean Corpuscular Hemoglobin Concent 32g/dL (31-37) Red Cell Distribution Width 16.8% (11.5-14.5) Platelet Count 227x10^3/uL (140-400) Neutrophils (%) (Auto) 78% (31-73) Lymphocytes (%) (Auto) 16% (24-48) Monocytes (%) (Auto) 6% (0-9) Eosinophils (%) (Auto) 0% (0-3) Basophils (%) (Auto) 0% (0-3) Neutrophils # (Auto) 11.9x10^3uL (1.8-7.7) Lymphocytes # (Auto) 2.4x10^3/uL (1.0-4.8) Monocytes # (Auto) 1.0x10^3/uL (0.0-1.1) Eosinophils # (Auto) 0.0x10^3/uL (0.0-0.7) Basophils # (Auto) 0.1x10^3/uL (0.0-0.2) Sodium Level 142mmol/L (136-145) Potassium Level 3.7mmol/L (3.5-5.1) Chloride Level 101mmol/L (98-107) Carbon Dioxide Level 22mmol/L (21-32) Anion Gap 19 (6-14) Blood Urea Nitrogen 14mg/dL (7-20) Creatinine 1.2mg/dL (0.6-1.0) Estimated GFR (Cockcroft-Gault) 57.1 Glucose Level 121mg/dL (70-99) Calcium Level 10.7mg/dL (8.5-10.1) Magnesium Level 1.6mg/dL (1.8-2.4) Review of Systems Review of Systems denies fever at this time; Tmax 100.2 at 1900 + dizziness, nausea, vomiting + abdominal pain Assessment and Plan Assessmemt and Plan ASSESSMENT: - Nausea, vomiting; recurrent - intractable abdominal pain - hypokalemia, resolved - GERD - gastroparesis - hypertension - diabetes - depression - rheumatoid arthritis - status post ORIF of right ankle.FAMILY HISTORY: CAD, diabetes, hypertension. PLAN: - cont IVF - cont IV Reglan, Zofran - add Compazine 10 mg IV q 8 h - start Flagyl 500 mg IV q 6 h; Levaquin 500 mg IV q 4 h - cont IV PRN Hydralazine for hypertensive urgency; BP now appropriately controlled - K+ corrected to 3.7 from 2.5 - appreciate subspecialist input - repeat daily labs - PTOT Problems: Comment Review of Relevant I have reviewed the following items starr (where applicable) has been applied. Labs Laboratory Tests Test 12/01/16 08:40 12/01/16 09:45 12/02/16 03:31 White Blood Count 8.2x10^3/uL (4.0-11.0) 15.3x10^3/uL (4.0-11.0) Red Blood Count 5.41x10^6/uL (3.50-5.40) 6.09x10^6/uL (3.50-5.40) Hemoglobin 14.5g/dL (12.0-15.5) 16.1g/dL (12.0-15.5) Hematocrit 45.1% (36.0-47.0) 50.8% (36.0-47.0) Mean Corpuscular Volume 83fL (79-100) 83fL (79-100) Mean Corpuscular Hemoglobin 27pg (25-35) 27pg (25-35) Mean Corpuscular Hemoglobin Concent 32g/dL (31-37) 32g/dL (31-37) Red Cell Distribution Width 16.0% (11.5-14.5) 16.8% (11.5-14.5) Platelet Count 208x10^3/uL (140-400) 227x10^3/uL (140-400) Neutrophils (%) (Auto) 61% (31-73) 78% (31-73) Lymphocytes (%) (Auto) 33% (24-48) 16% (24-48) Monocytes (%) (Auto) 5% (0-9) 6% (0-9) Eosinophils (%) (Auto) 0% (0-3) 0% (0-3) Basophils (%) (Auto) 1% (0-3) 0% (0-3) Neutrophils # (Auto) 5.0x10^3uL (1.8-7.7) 11.9x10^3uL (1.8-7.7) Lymphocytes # (Auto) 2.7x10^3/uL (1.0-4.8) 2.4x10^3/uL (1.0-4.8) Monocytes # (Auto) 0.4x10^3/uL (0.0-1.1) 1.0x10^3/uL (0.0-1.1) Eosinophils # (Auto) 0.0x10^3/uL (0.0-0.7) 0.0x10^3/uL (0.0-0.7) Basophils # (Auto) 0.0x10^3/uL (0.0-0.2) 0.1x10^3/uL (0.0-0.2) Sodium Level 144mmol/L (136-145) 142mmol/L (136-145) Potassium Level 2.5mmol/L (3.5-5.1) 3.7mmol/L (3.5-5.1) Chloride Level 104mmol/L (98-107) 101mmol/L (98-107) Carbon Dioxide Level 23mmol/L (21-32) 22mmol/L (21-32) Anion Gap 17 (6-14) 19 (6-14) Blood Urea Nitrogen 11mg/dL (7-20) 14mg/dL (7-20) Creatinine 0.9mg/dL (0.6-1.0) 1.2mg/dL (0.6-1.0) Estimated GFR (Cockcroft-Gault) 79.6 57.1 BUN/Creatinine Ratio 12 (6-20) Glucose Level 164mg/dL (70-99) 121mg/dL (70-99) Calcium Level 10.4mg/dL (8.5-10.1) 10.7mg/dL (8.5-10.1) Total Bilirubin 0.7mg/dL (0.2-1.0) Aspartate Amino Transf (AST/SGOT) 15U/L (15-37) Alanine Aminotransferase (ALT/SGPT) 14U/L (14-59) Alkaline Phosphatase 113U/L (46-116) Creatine Kinase 136U/L (26-192) Creatine Kinase MB (Mass) 0.6ng/mL (0.0-3.6) Creatine Kinase MB Relative Index 0.4% (0-4) Troponin I Quantitative < 0.017ng/mL (0.000-0.055) Total Protein 9.3g/dL (6.4-8.2) Albumin 4.2g/dL (3.4-5.0) Albumin/Globulin Ratio 0.8 (1.0-1.7) Lipase 114U/L (73-393) Urine Collection Type Unknown Urine Color Yellow Urine Clarity Clear Urine pH 7.5 Urine Specific [place] 1.010 Urine Protein Negativemg/dL (NEG-TRACE) Urine Glucose (UA) 100mg/dL (NEG) Urine Ketones (Stick) 15mg/dL (NEG) Urine Blood Negative (NEG) Urine Nitrite Negative (NEG) Urine Bilirubin Negative (NEG) Urine Urobilinogen Dipstick 0.2mg/dL (0.2 mg/dL) Urine Leukocyte Esterase Negative (NEG) Urine RBC 3-5/HPF (0-2) Urine WBC Occ/HPF (0-4) Urine Squamous Epithelial Cells Few/LPF Urine Bacteria Few/HPF (0-FEW) Urine Mucus Slight/LPF Magnesium Level 1.6mg/dL (1.8-2.4) Laboratory Tests Test 12/02/16 03:31 White Blood Count 15.3x10^3/uL (4.0-11.0) Red Blood Count 6.09x10^6/uL (3.50-5.40) Hemoglobin 16.1g/dL (12.0-15.5) Hematocrit 50.8% (36.0-47.0) Mean Corpuscular Volume 83fL (79-100) Mean Corpuscular Hemoglobin 27pg (25-35) Mean Corpuscular Hemoglobin Concent 32g/dL (31-37) Red Cell Distribution Width 16.8% (11.5-14.5) Platelet Count 227x10^3/uL (140-400) Neutrophils (%) (Auto) 78% (31-73) Lymphocytes (%) (Auto) 16% (24-48) Monocytes (%) (Auto) 6% (0-9) Eosinophils (%) (Auto) 0% (0-3) Basophils (%) (Auto) 0% (0-3) Neutrophils # (Auto) 11.9x10^3uL (1.8-7.7) Lymphocytes # (Auto) 2.4x10^3/uL (1.0-4.8) Monocytes # (Auto) 1.0x10^3/uL (0.0-1.1) Eosinophils # (Auto) 0.0x10^3/uL (0.0-0.7) Basophils # (Auto) 0.1x10^3/uL (0.0-0.2) Sodium Level 142mmol/L (136-145) Potassium Level 3.7mmol/L (3.5-5.1) Chloride Level 101mmol/L (98-107) Carbon Dioxide Level 22mmol/L (21-32) Anion Gap 19 (6-14) Blood Urea Nitrogen 14mg/dL (7-20) Creatinine 1.2mg/dL (0.6-1.0) Estimated GFR (Cockcroft-Gault) 57.1 Glucose Level 121mg/dL (70-99) Calcium Level 10.7mg/dL (8.5-10.1) Magnesium Level 1.6mg/dL (1.8-2.4) Medications Current Medications Fentanyl Citrate 50 mcg 50 mcg PRN Q15MIN PRN IV PAIN GREATER THAN 3/10 Last administered on 12/01/16 10:31; Start 12/01/16 at 09:00; Stop 12/02/16 at 08:59 ; Status DC Sodium Chloride (Iv Sodium Chloride 0.9% 1000ml Bag) 1,000 ml @ 1,000 mls/hr Q1H IV Last administered on 12/01/16 09:19; Start 12/01/16 at 08:47; Stop at 09:46; Status DC Ondansetron HCl (Zofran) 4 mg 1X ONCE IV ; Start 12/01/16 at 09:00; Stop at 09:00; Status DC Famotidine (Pepcid) 20 mg 1X ONCE IVP ; Start 12/01/16 at 09:00; Stop 12/01/16 at 09:00; Status DC Metoclopramide HCl (Reglan) 10 mg 1X ONCE IV Last administered on 12/01/16 08 :59; Start 12/01/16 at 09:00; Stop 12/01/16 at 09:01; Status DC Pantoprazole Sodium (Protonix Vial) 40 mg 1X ONCE IVP Last administered on 09:16; Start 12/01/16 at 09:00; Stop 12/01/16 at 09:01; Status DC Hydralazine HCl (Apresoline) 10 mg 1X ONCE IVP Last administered on 12/01/16 09:37; Start 12/01/16 at 09:30; Stop 12/01/16 at 09:31; Status DC Ondansetron HCl (Zofran) 4 mg PRN Q8HRS PRN IV NAUSEA/VOMITING Last administered on 12/02/16 09:26; Start 12/01/16 at 09:30; Stop 12/02/16 at 09:29 ; Status DC Fentanyl Citrate (Fentanyl 2ml Vial) 50 mcg PRN Q2HR PRN IV PAIN Last administered on 12/02/16 00:23; Start 12/01/16 at 09:30; Stop 12/02/16 at 09:29 ; Status DC Albuterol/ Ipratropium 3 ml 3 ml RTQID NEB Last administered on 12/02/16 09:40 ; Start 12/01/16 at 10:00; Stop 12/02/16 at 09:59; Status DC Pantoprazole Sodium 80 mg/ Sodium Chloride 100 ml @ 10 mls/hr Q10H IV Last administered on 12/01/16 10:33; Start 12/01/16 at 09:30 Potassium Chloride/Dextrose/ Sod Cl (KCl 20 Meq In D5W-1/2 NS) 1,000 ml @ 125 mls/hr Q8H IV Last administered on 12/02/16 09:28; Start 12/01/16 at 09:45 Enalaprilat 2.5 mg 2.5 mg PRN Q6HRS PRN IV SBP greater than 160; Start at 14:45 Promethazine HCl 25 mg/Sodium Chloride 51 ml @ 151.5 mls/ hr PRN Q6HRS PRN IV NAUSEA/VOMITING; Start 12/01/16 at 14:45 Potassium Chloride (KCl Premix 10meq) 100 ml @ 100 mls/hr Q1H IV ; Start at 17:00; Stop 12/01/16 at 20:59; Status Cancel Amlodipine Besylate (Norvasc) 10 mg DAILY PO Last administered on 12/02/16 09: 24; Start 12/02/16 at 09:00 Atorvastatin Calcium (Lipitor) 10 mg DAILY PO Last administered on 12/02/16 09 :23; Start 12/02/16 at 09:00 Citalopram Hydrobromide (Celexa) 10 mg DAILY PO Last administered on 12/02/16 09:25; Start 12/02/16 at 09:00 Gabapentin (Neurontin) 300 mg TID PO Last administered on 12/02/16 09:23; Start 12/01/16 at 21:00 Acetaminophen/ Hydrocodone Bitart (Lort[place] 5/325) 1 tab PRN Q6HRS PRN PO PAIN Last administered on 12/02/16 09:49; Start 12/01/16 at 19:00 Pantoprazole Sodium (Protonix) 40 mg BIDAC PO Last administered on 12/02/16 09 :22; Start 12/02/16 at 07:30 Tramadol HCl (Ultram) 50 mg PRN Q6HRS PRN PO MODERATE PAIN Last administered on 12/02/16 09:25; Start 12/01/16 at 19:00 Hydralazine HCl (Apresoline) 10 mg PRN Q4HRS PRN IVP HTN Last administered on 09:38; Start 12/01/16 at 19:00 Metoclopramide HCl 10 mg 10 mg Q8HRS IV Last administered on 12/02/16 07:02; Start 12/01/16 at 22:00 Potassium Chloride (KCl Premix 10meq) 100 ml @ 100 mls/hr Q1H IV Last administered on 12/02/16 06:21; Start 12/01/16 at 19:30; Stop 12/02/16 at 03:29 ; Status DC Active Scripts Active [place] 5-325 Tablet (Acetaminophen/Hydrocodone Bitart) 1 Each Tablet 1 Tab PO PRN Q6HRS PRN Carafate (Sucralfate) 1 Gm Tablet 1 Tab PO QID Omeprazole 20 Mg Tablet. 20 Mg PO BID Metoclopramide Hcl 5 Mg Tablet 5 Mg PO PRN BFRMEALHC PRN Celexa (Citalopram Hydrobromide) 10 Mg Tablet 10 Mg PO DAILY Tramadol Hcl 50 Mg Tablet 50 Mg PO PRN Q6HRS PRN Zofran Odt (Ondansetron) 4 Mg Tab.rapdis 1 Tab SL Q8HRS Pantoprazole Sodium 40 Mg Tablet. 40 Mg PO BIDAC Reported Amlodipine Besylate 10 Mg Tablet 10 Mg PO DAILY Gabapentin 300 Mg Capsule 300 Mg PO TID Co Q-10 (Ubidecarenone) 200 Mg Capsule 200 Mg PO BID Atorvastatin Calcium 10 Mg Tablet 1 Tab PO DAILY Vitals/I & O Vital Sign - Last 24 Hours 12/01/16 12/01/16 12/01/16 12/01/16 12:19 14:15 15:02 16:57 Temp 98.8 98.8 Pulse 91 Resp 14 20 20 B/P 222/127 Pulse Ox 95 95 99 99 O2 Delivery Room Air Room Air Room Air Room Air 12/01/16 12/01/16 12/01/16 12/01/16 19:00 20:00 21:00 23:00 Temp 100.2 99.5 98.8 100.2 99.5 98.8 Pulse 105 144 138 Resp 20 20 20 B/P 197/124 154/116 171/120 Pulse Ox 99 100 99 O2 Delivery Room Air Room Air Room Air Room Air 12/02/16 12/02/16 12/02/16 12/02/16 00:23 00:55 03:00 03:44 Temp 99.0 99.0 Pulse 127 111 Resp 20 18 20 B/P 141/102 136/83 Pulse Ox 99 99 95 O2 Delivery Room Air Room Air Room Air 12/02/16 12/02/16 12/02/16 12/02/16 07:00 08:00 09:24 09:25 Temp 99.5 99.5 Pulse 153 82 Resp 18 20 B/P 193/125 Pulse Ox 96 96 O2 Delivery Room Air Room Air Room Air 12/02/16 12/02/16 12/02/16 12/02/16 09:38 09:42 09:49 11:00 Temp 99.3 99.3 Pulse 98 136 Resp 20 18 B/P 174/104 132/84 Pulse Ox 98 98 96 O2 Delivery Room Air Room Air Room Air Intake and Output 12/01/16 12/01/16 12/02/16 15:00 23:00 07:00 Intake Total 500 ml 240 ml Balance 500 ml 240 ml WHIT CABA III DO Dec 02, 2016 12:29
[2016-12-02] MEDS: METRONIDAZOLE 500mg PREMIX 100 ML IV SCH ×2 (13:45→19:55)
[2016-12-03] MEDS: METRONIDAZOLE 500mg PREMIX 100 ML IV SCH ×3 (00:08→12:01)
[2016-12-03] MEDS: HYDROCODONE/APAP 5/325MG TABLET. PO PRN ×2 (01:34→12:01)
[2016-12-03 03:00] VITALS: BP 103/80
[2016-12-03] MEDS: POTASSIUM CL 20MEQ D5-0.45NACL 1,000 ML IV SCH (04:21)
[2016-12-03] MEDS: METOCLOPRAMIDE HCL 10 MG/2 ML VIAL. IV SCH (05:56)
[2016-12-03] MEDS: TRAMADOL 50 MG TABLET. PO PRN (06:00)
[2016-12-03 06:20] LABS: BASO # 0.1 x10^3/uL (0.0-0.2); BASO % 1 % (0-3); EOS % 0 % (0-3); HEMATOCRIT 39.4 % (36.0-47.0); HEMOGLOBIN 12.4 g/dL (12.0-15.5); LYMPH # 3.8 x10^3/uL (1.0-4.8); LYMPH % 41 % (24-48); MEAN CORPUSCULAR HEMOGLOBIN 27 pg (25-35); MEAN CORPUSCULAR HGB CONC 31 g/dL (31-37); MEAN CORPUSCULAR VOLUME 84 fL (79-100); MONO % 10 % (0-9); NEUT % 48 % (31-73); PLATELET COUNT 168 x10^3/uL (140-400); RED BLOOD COUNT 4.68 x10^6/uL (3.50-5.40); RED CELL DISTRIBUTION WIDTH 16.5 % (11.5-14.5); WHITE BLOOD COUNT 9.3 x10^3/uL (4.0-11.0)
[2016-12-03 06:44] LABS: CALCIUM 9.3 mg/dL (8.5-10.1); CREATININE 0.9 mg/dL (0.6-1.0); GFR 79.6; POTASSIUM 3.5 mmol/L (3.5-5.1)
[2016-12-03 07:00] VITALS: BP 110/53
[2016-12-03] MEDS: ATORVASTATIN CALCIUM 10 MG TABLET. PO SCH (08:43)
[2016-12-03] MEDS: PANTOPRAZOLE 40 MG TABLET. PO SCH ×2 (08:43→16:30)
[2016-12-03] MEDS: CITALOPRAM 10 MG TABLET. PO SCH (08:43)
[2016-12-03] MEDS: GABAPENTIN 300 MG CAPSULE. PO SCH ×2 (08:43→14:00)
[2016-12-03] MEDS: AMLODIPINE BESYLATE 10 MG TABLET PO SCH (08:44)
[2016-12-03 11:00] VITALS: BP 105/71
--- NOTE | 2016-12-03 13:08 | PDOC ---
G I PROGRESS NOTE Reason for Follow-up N/V Subjective Improved intake with prokinetic therapy Physical Exam Lungs clear CV S1 S2 ABD +BS, soft, nontender Review of Relevant I have reviewed the following items starr (where applicable) has been applied. Labs Laboratory Tests Test 12/02/16 03:31 12/03/16 05:30 White Blood Count 15.3x10^3/uL (4.0-11.0) 9.3x10^3/uL (4.0-11.0) Red Blood Count 6.09x10^6/uL (3.50-5.40) 4.68x10^6/uL (3.50-5.40) Hemoglobin 16.1g/dL (12.0-15.5) 12.4g/dL (12.0-15.5) Hematocrit 50.8% (36.0-47.0) 39.4% (36.0-47.0) Mean Corpuscular Volume 83fL (79-100) 84fL (79-100) Mean Corpuscular Hemoglobin 27pg (25-35) 27pg (25-35) Mean Corpuscular Hemoglobin Concent 32g/dL (31-37) 31g/dL (31-37) Red Cell Distribution Width 16.8% (11.5-14.5) 16.5% (11.5-14.5) Platelet Count 227x10^3/uL (140-400) 168x10^3/uL (140-400) Neutrophils (%) (Auto) 78% (31-73) 48% (31-73) Lymphocytes (%) (Auto) 16% (24-48) 41% (24-48) Monocytes (%) (Auto) 6% (0-9) 10% (0-9) Eosinophils (%) (Auto) 0% (0-3) 0% (0-3) Basophils (%) (Auto) 0% (0-3) 1% (0-3) Neutrophils # (Auto) 11.9x10^3uL (1.8-7.7) 4.5x10^3uL (1.8-7.7) Lymphocytes # (Auto) 2.4x10^3/uL (1.0-4.8) 3.8x10^3/uL (1.0-4.8) Monocytes # (Auto) 1.0x10^3/uL (0.0-1.1) 0.9x10^3/uL (0.0-1.1) Eosinophils # (Auto) 0.0x10^3/uL (0.0-0.7) 0.0x10^3/uL (0.0-0.7) Basophils # (Auto) 0.1x10^3/uL (0.0-0.2) 0.1x10^3/uL (0.0-0.2) Sodium Level 142mmol/L (136-145) 143mmol/L (136-145) Potassium Level 3.7mmol/L (3.5-5.1) 3.5mmol/L (3.5-5.1) Chloride Level 101mmol/L (98-107) 107mmol/L (98-107) Carbon Dioxide Level 22mmol/L (21-32) 25mmol/L (21-32) Anion Gap 19 (6-14) 11 (6-14) Blood Urea Nitrogen 14mg/dL (7-20) 9mg/dL (7-20) Creatinine 1.2mg/dL (0.6-1.0) 0.9mg/dL (0.6-1.0) Estimated GFR (Cockcroft-Gault) 57.1 79.6 Glucose Level 121mg/dL (70-99) 118mg/dL (70-99) Calcium Level 10.7mg/dL (8.5-10.1) 9.3mg/dL (8.5-10.1) Magnesium Level 1.6mg/dL (1.8-2.4) Laboratory Tests Test 12/03/16 05:30 White Blood Count 9.3x10^3/uL (4.0-11.0) Red Blood Count 4.68x10^6/uL (3.50-5.40) Hemoglobin 12.4g/dL (12.0-15.5) Hematocrit 39.4% (36.0-47.0) Mean Corpuscular Volume 84fL (79-100) Mean Corpuscular Hemoglobin 27pg (25-35) Mean Corpuscular Hemoglobin Concent 31g/dL (31-37) Red Cell Distribution Width 16.5% (11.5-14.5) Platelet Count 168x10^3/uL (140-400) Neutrophils (%) (Auto) 48% (31-73) Lymphocytes (%) (Auto) 41% (24-48) Monocytes (%) (Auto) 10% (0-9) Eosinophils (%) (Auto) 0% (0-3) Basophils (%) (Auto) 1% (0-3) Neutrophils # (Auto) 4.5x10^3uL (1.8-7.7) Lymphocytes # (Auto) 3.8x10^3/uL (1.0-4.8) Monocytes # (Auto) 0.9x10^3/uL (0.0-1.1) Eosinophils # (Auto) 0.0x10^3/uL (0.0-0.7) Basophils # (Auto) 0.1x10^3/uL (0.0-0.2) Sodium Level 143mmol/L (136-145) Potassium Level 3.5mmol/L (3.5-5.1) Chloride Level 107mmol/L (98-107) Carbon Dioxide Level 25mmol/L (21-32) Anion Gap 11 (6-14) Blood Urea Nitrogen 9mg/dL (7-20) Creatinine 0.9mg/dL (0.6-1.0) Estimated GFR (Cockcroft-Gault) 79.6 Glucose Level 118mg/dL (70-99) Calcium Level 9.3mg/dL (8.5-10.1) Medications Current Medications Fentanyl Citrate 50 mcg 50 mcg PRN Q15MIN PRN IV PAIN GREATER THAN 3/10 Last administered on 12/01/16 10:31; Start 12/01/16 at 09:00; Stop 12/02/16 at 08:59 ; Status DC Sodium Chloride (Iv Sodium Chloride 0.9% 1000ml Bag) 1,000 ml @ 1,000 mls/hr Q1H IV Last administered on 12/01/16 09:19; Start 12/01/16 at 08:47; Stop at 09:46; Status DC Ondansetron HCl (Zofran) 4 mg 1X ONCE IV ; Start 12/01/16 at 09:00; Stop at 09:00; Status DC Famotidine (Pepcid) 20 mg 1X ONCE IVP ; Start 12/01/16 at 09:00; Stop 12/01/16 at 09:00; Status DC Metoclopramide HCl (Reglan) 10 mg 1X ONCE IV Last administered on 12/01/16 08 :59; Start 12/01/16 at 09:00; Stop 12/01/16 at 09:01; Status DC Pantoprazole Sodium (Protonix Vial) 40 mg 1X ONCE IVP Last administered on 09:16; Start 12/01/16 at 09:00; Stop 12/01/16 at 09:01; Status DC Hydralazine HCl (Apresoline) 10 mg 1X ONCE IVP Last administered on 12/01/16 09:37; Start 12/01/16 at 09:30; Stop 12/01/16 at 09:31; Status DC Ondansetron HCl (Zofran) 4 mg PRN Q8HRS PRN IV NAUSEA/VOMITING Last administered on 12/02/16 09:26; Start 12/01/16 at 09:30; Stop 12/02/16 at 09:29 ; Status DC Fentanyl Citrate (Fentanyl 2ml Vial) 50 mcg PRN Q2HR PRN IV PAIN Last administered on 12/02/16 00:23; Start 12/01/16 at 09:30; Stop 12/02/16 at 09:29 ; Status DC Albuterol/ Ipratropium 3 ml 3 ml RTQID NEB Last administered on 12/02/16 09:40 ; Start 12/01/16 at 10:00; Stop 12/02/16 at 09:59; Status DC Pantoprazole Sodium 80 mg/ Sodium Chloride 100 ml @ 10 mls/hr Q10H IV Last administered on 12/01/16 10:33; Start 12/01/16 at 09:30; Stop 12/02/16 at 20:16 ; Status DC Potassium Chloride/Dextrose/ Sod Cl (KCl 20 Meq In D5W-1/2 NS) 1,000 ml @ 125 mls/hr Q8H IV Last administered on 12/03/16 04:21; Start 12/01/16 at 09:45 Enalaprilat 2.5 mg 2.5 mg PRN Q6HRS PRN IV SBP greater than 160; Start at 14:45 Promethazine HCl 25 mg/Sodium Chloride 51 ml @ 151.5 mls/ hr PRN Q6HRS PRN IV NAUSEA/VOMITING; Start 12/01/16 at 14:45 Potassium Chloride (KCl Premix 10meq) 100 ml @ 100 mls/hr Q1H IV ; Start at 17:00; Stop 12/01/16 at 20:59; Status Cancel Amlodipine Besylate (Norvasc) 10 mg DAILY PO Last administered on 12/03/16 08: 44; Start 12/02/16 at 09:00 Atorvastatin Calcium (Lipitor) 10 mg DAILY PO Last administered on 12/03/16 08 :43; Start 12/02/16 at 09:00 Citalopram Hydrobromide (Celexa) 10 mg DAILY PO Last administered on 12/03/16 08:43; Start 12/02/16 at 09:00 Gabapentin (Neurontin) 300 mg TID PO Last administered on 12/03/16 08:43; Start 12/01/16 at 21:00 Acetaminophen/ Hydrocodone Bitart (Lortab 5/325) 1 tab PRN Q6HRS PRN PO PAIN Last administered on 12/03/16 12:01; Start 12/01/16 at 19:00 Pantoprazole Sodium (Protonix) 40 mg BIDAC PO Last administered on 12/03/16 08 :43; Start 12/02/16 at 07:30 Tramadol HCl (Ultram) 50 mg PRN Q6HRS PRN PO MODERATE PAIN Last administered on 12/03/16 06:00; Start 12/01/16 at 19:00 Hydralazine HCl (Apresoline) 10 mg PRN Q4HRS PRN IVP HTN Last administered on 09:38; Start 12/01/16 at 19:00 Metoclopramide HCl 10 mg 10 mg Q8HRS IV Last administered on 12/03/16 05:56; Start 12/01/16 at 22:00 Potassium Chloride 100 ml @ 100 mls/hr Q1H IV Last administered on 12/02/16 06:21; Start 12/01/16 at 19:30; Stop 12/02/16 at 03:29; Status DC Metronidazole 100 ml @ 100 mls/hr Q6HRS IV Last administered on 12/03/16 12: 01; Start 12/02/16 at 13:00 Levofloxacin/ Dextrose (LEVAQUIN 500mg PREMIX) 100 ml @ 100 mls/hr Q24H IV Last administered on 12/02/16 17:07; Start 12/02/16 at 13:00 Prochlorperazine Edisylate (Compazine) 10 mg PRN Q8HRS PRN IV NAUSEA/VOMITING; Start 12/02/16 at 12:15 Active Scripts Active [place] 5-325 Tablet (Acetaminophen/Hydrocodone Bitart) 1 Each Tablet 1 Tab PO PRN Q6HRS PRN Carafate (Sucralfate) 1 Gm Tablet 1 Tab PO QID Omeprazole 20 Mg Tablet. 20 Mg PO BID Metoclopramide Hcl 5 Mg Tablet 5 Mg PO PRN BFRMEALHC PRN Celexa (Citalopram Hydrobromide) 10 Mg Tablet 10 Mg PO DAILY Tramadol Hcl 50 Mg Tablet 50 Mg PO PRN Q6HRS PRN Zofran Odt (Ondansetron) 4 Mg Tab.rapdis 1 Tab SL Q8HRS Pantoprazole Sodium 40 Mg Tablet. 40 Mg PO BIDAC Reported Amlodipine Besylate 10 Mg Tablet 10 Mg PO DAILY Gabapentin 300 Mg Capsule 300 Mg PO TID Co Q-10 (Ubidecarenone) 200 Mg Capsule 200 Mg PO BID Atorvastatin Calcium 10 Mg Tablet 1 Tab PO DAILY Vitals/I & O Vital Sign - Last 24 Hours 12/02/16 12/02/16 12/02/16 12/02/16 15:00 17:17 18:17 19:00 Temp 97.7 97.9 97.7 97.9 Pulse 109 98 Resp 18 20 18 B/P 97/70 111/77 Pulse Ox 98 98 98 98 O2 Delivery Room Air Room Air Room Air Room Air 12/02/16 12/02/16 12/02/16 12/02/16 21:15 21:17 22:15 23:00 Temp 97.5 97.5 Pulse 118 Resp 20 18 B/P 109/86 Pulse Ox 97 O2 Delivery Room Air Room Air Room Air 12/03/16 12/03/16 12/03/16 12/03/16 01:34 02:35 03:00 06:00 Temp 97.9 97.9 Pulse 89 Resp 20 20 18 20 B/P 103/80 Pulse Ox 98 O2 Delivery Room Air Room Air Room Air 12/03/16 12/03/16 12/03/16 12/03/16 07:00 07:30 08:44 11:00 Temp 97.5 97.7 97.5 97.7 Pulse 80 80 83 Resp 19 20 B/P 110/53 110/53 105/71 Pulse Ox 99 100 O2 Delivery Room Air Room Air Room Air 12/03/16 12:01 O2 Delivery Room Air Intake and Output 12/02/16 12/02/16 12/03/16 15:00 23:00 07:00 Intake Total 260 ml 570 ml 1996 ml Balance 260 ml 570 ml 1996 ml Problem List Problems Medical Problems: (1) Accelerated hypertension Status: Acute (2) Diabetes mellitus Status: Acute (3) Hematemesis Status: Acute (4) Hypokalemia Status: Acute (5) Intractable abdominal pain Status: Acute (6) Peptic ulcer disease Status: Acute (7) Vomiting Status: Acute Assessment N/V- with gastroapresis, prokinetic therapy will e needed correction, Carly program may be of assistance for 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
--- NOTE | 2016-12-03 13:29 | PDOC ---
PROGRESS NOTES Chief Complaint Chief Complaint Nausea, vomiting, abdominal pain ASSESSMETN AND PLAN: 1. Gastroparesis: N/V/ abd pain resolved with restart of reglan. switch to PO bid. advance diet 2. GERD: PPI 3. Hypokalemia: resolved 4. Leukocytosis: resolved 5. HTN: well controlled on home regimen. 6. HLD: on statin 7. DM: diet controlled 8. Dispo: d/c home when tolerating reg diet - depression - rheumatoid arthritis - status post ORIF of right ankle. History of Present Illness History of Present Illness Vitals Vitals Vital Signs Date Time Temp Pulse Resp B/P Pulse Ox O2 Delivery O2 Flow Rate FiO2 12/03/16 12:01 Room Air 12/03/16 11:00 97.7 83 20 105/71 100 97.7 Physical Exam General: Alert, Cooperative, moderate distress Heart: Regular rate, Normal S1 Lungs: Clear Abdomen: Soft, Other (diffuse tenderness) Extremities: No cyanosis, No edema Skin: No significant lesion Labs LABS Laboratory Tests Test 12/03/16 05:30 White Blood Count 9.3x10^3/uL (4.0-11.0) Red Blood Count 4.68x10^6/uL (3.50-5.40) Hemoglobin 12.4g/dL (12.0-15.5) Hematocrit 39.4% (36.0-47.0) Mean Corpuscular Volume 84fL (79-100) Mean Corpuscular Hemoglobin 27pg (25-35) Mean Corpuscular Hemoglobin Concent 31g/dL (31-37) Red Cell Distribution Width 16.5% (11.5-14.5) Platelet Count 168x10^3/uL (140-400) Neutrophils (%) (Auto) 48% (31-73) Lymphocytes (%) (Auto) 41% (24-48) Monocytes (%) (Auto) 10% (0-9) Eosinophils (%) (Auto) 0% (0-3) Basophils (%) (Auto) 1% (0-3) Neutrophils # (Auto) 4.5x10^3uL (1.8-7.7) Lymphocytes # (Auto) 3.8x10^3/uL (1.0-4.8) Monocytes # (Auto) 0.9x10^3/uL (0.0-1.1) Eosinophils # (Auto) 0.0x10^3/uL (0.0-0.7) Basophils # (Auto) 0.1x10^3/uL (0.0-0.2) Sodium Level 143mmol/L (136-145) Potassium Level 3.5mmol/L (3.5-5.1) Chloride Level 107mmol/L (98-107) Carbon Dioxide Level 25mmol/L (21-32) Anion Gap 11 (6-14) Blood Urea Nitrogen 9mg/dL (7-20) Creatinine 0.9mg/dL (0.6-1.0) Estimated GFR (Cockcroft-Gault) 79.6 Glucose Level 118mg/dL (70-99) Calcium Level 9.3mg/dL (8.5-10.1) Review of Systems Review of Systems no ongoing GI sx. wants to try reg food DOMENICO BLANTON MD Dec 03, 2016 13:29
[2016-12-03] MEDS ORDERED: METO5TAB PO (13:32)
[2016-12-03 15:00] VITALS: BP 115/78
[2016-12-03] MEDS ORDERED: METOCLOPRAMIDE 10 MG TABLET PO SCH (16:30)
--- NOTE | 2016-12-04 00:35 | DS ---
DATE OF DISCHARGE: 12/03/2016 CHIEF COMPLAINT: Nausea, vomiting, and abdominal pain. HISTORY OF PRESENT ILLNESS: The patient is a 51-year-old woman with known history of GERD as well as gastroparesis who ran out of her medications at home and therefore presented with nausea, vomiting and abdominal pain related to her underlying gastric conditions. She was started on IV nausea medications, PPI and IV fluids with good resolution of her symptoms. Hypokalemia was resolved with IV administration of potassium. All other medical issues remained fairly stable. She was deemed appropriate for discharge on 12/03/2016, tolerating p.o. diet normally. PHYSICAL EXAMINATION: Please refer to note from same day. DISCHARGE DATE: 12/03/2016. DISCHARGE DIAGNOSES: Gastroparesis, medical noncompliance. DISCHARGE DISPOSITION: To home. DISCHARGE CONDITION: Improved. DISCHARGE MEDICATIONS: Please refer to MAR. DISCHARGE INSTRUCTIONS: The patient will follow up with GI and PCP as previously arranged. DOMENICO BLANTON MD DR: MYAH/nts JOB#: [id number] / [id number] SALAS
== END 2016-12-03 17:55 | disposition home or self-care (01) | DRG 74 ==
LOC: ER 08:33 → 5 NORTH 09:26
PROVIDERS: ADMIT Internal Medicine Hematology & Oncology; ATTEND Internal Medicine Hematology & Oncology
DX: E11.43 Type 2 diabetes mellitus with diabetic autonomic (poly)neuropathy (principal); K92.0 Hematemesis; K31.84 Gastroparesis; K21.9 Gastro-esophageal reflux disease without esophagitis; I10 Essential (primary) hypertension; M06.9 Rheumatoid arthritis, unspecified; E87.6 Hypokalemia; D72.829 Elevated white blood cell count, unspecified; E78.00 Pure hypercholesterolemia, unspecified; E78.5 Hyperlipidemia, unspecified; F32.9 Major depressive disorder, single episode, unspecified; K27.9 Peptic ulcer, site unspecified, unspecified as acute or chronic, without hemorrhage or perforation; F12.90 Cannabis use, unspecified, uncomplicated; F41.9 Anxiety disorder, unspecified; Z79.899 Other long term (current) drug therapy; Z82.49 Family history of ischemic heart disease and other diseases of the circulatory system; Z91.19 Patient's noncompliance with other medical treatment and regimen; Z83.3 Family history of diabetes mellitus; Z88.0 Allergy status to penicillin
CPT/HCPCS: 36415; 74022; 80048; 80053; 81001; 82553; 83690; 83735; 84484; 85027; 93005; 94250; 94640; 94760; C9113; J0360; J1956; J2405; J2765; J3010; J3480; J3490; J7030; J7620

== ENCOUNTER 2016-12-14 14:09 | Emergency (ER) | payer SELFPAY ==
[~2016-12-14] VITALS: Ht 170.2 cm; Wt 70.3 kg
[~2016-12-14 14:09] MED LIST changes: +AMLO10TA2 PO; +GABA300C8 PO; +UBID200C4 PO
[2016-12-14 14:12] VITALS: BP 126/77
[2016-12-14] MEDS ORDERED: PANTOPRAZOLE 40 MG TABLET. PO ONE (14:45)
[2016-12-14] MEDS ORDERED: METOCLOPRAMIDE HCL 10 MG/2 ML VIAL. IV ONE (14:45)
--- NOTE | 2016-12-14 15:03 | PHYS DOC ---
Past Medical History Past Medical History: Anxiety, Depression, GERD, High Cholesterol, Hypertension , P.U.D., URI, Other Additional Past Medical Histor: Gastroparesis Past Surgical History: Tubal ligation, Other Additional Past Surgical Histo: foot surgery, explor. adominal sx Alcohol Use: None Drug Use: Marijuana Adult General Chief Complaint Chief Complaint: ABDOMINAL PAIN HPI HPI Patient is a 51 year old female with gastroparesis who presents with intermittent, crampy upper abdominal pain and nausea exactly like prior symptoms during recent evaluations. She states this has been for the past 3 days and she went to an outside ED for treatment 2 days ago and discussed her "H. pylori and nausea" and she had zofran refilled. She is only taking sucralfate otherwise. States when she was admitted here for this 2 weeks ago she was not given paper scripts, so she has not started the medications that were discussed during that admission. Namely, these are metoclopramide and pantoprazole. She has prior prescription for sucralfate and zofran. She denies emesis over the past 2 days. Denies f/c, diarrhea, constipation, dysuria. Review of Systems Review of Systems Constitutional: Denies fever or chills [] Eyes: Denies change in visual acuity, redness, or eye pain [] HENT: Denies nasal congestion or sore throat [] Respiratory: Denies cough or shortness of breath [] Cardiovascular: No additional information not addressed in HPI [] GI: Denies abdominal pain, nausea, vomiting, bloody stools or diarrhea [] : Denies dysuria or hematuria [] Musculoskeletal: Denies back pain or joint pain [] Integument: Denies rash or skin lesions [] Neurologic: Denies headache, focal weakness or sensory changes [] Endocrine: Denies polyuria or polydipsia [] Current Medications Current Medications Current Medications Medications (Trade) Dose Ordered Sig/Emile Start Time Stop Time Status Last Admin Dose Admin Metoclopramide HCl (Reglan) 10 mg 1X ONCE 12/14/16 14:45 12/14/16 14:51 DC 12/14/16 15:20 10 MG Multi-Ingredient Mouthwash/Gargle (Gi Cocktail Single Dose) 15 ml 1X ONCE 12/14/16 16:00 12/14/16 16:01 DC 3/29/17 15:56 15 ML Pantoprazole Sodium (Protonix) 40 mg 1X ONCE 12/14/16 14:45 12/14/16 14:51 DC 12/14/16 15:19 40 MG Allergies Allergies Allergies Coded Allergies Type Severity Reaction Last Updated Verified Penicillins Allergy Intermediate 12/01/16 Yes Physical Exam Physical Exam Constitutional: Well developed, well nourished, no acute distress, non-toxic appearance. [] HENT: Normocephalic, atraumatic, bilateral external ears normal, oropharynx moist, nose normal. [] Eyes: PERRLA, EOMI. [] Neck: Normal range of motion, supple. [] Cardiovascular:Heart rate regular rhythm [] Lungs & Thorax: Bilateral breath sounds clear to auscultation [] Abdomen: Bowel sounds normal, soft, minimal epigastric tenderness, no guarding or rebound. [] Skin: Warm, dry, no erythema, no rash. [] Back: No tenderness, no CVA tenderness. [] Extremities: No tenderness, ROM intact, no edema. [] Neurologic: Alert and oriented X 3, normal motor function, normal sensory function, no focal deficits noted. [] Psychologic: Affect normal, mood normal. Poor insight into medical conditions and medications [] Current Patient Data Vital Signs Vital Signs Date Time Temp Pulse Resp B/P Pulse Ox O2 Delivery O2 Flow Rate FiO2 12/14/16 14:12 96.7 82 30 126/77 100 Room Air 96.7 Lab Values Laboratory Tests Test 12/14/16 16:25 Sodium Level 138mmol/L (136-145) Potassium Level 3.8mmol/L (3.5-5.1) Chloride Level 104mmol/L (98-107) Carbon Dioxide Level 27mmol/L (21-32) Anion Gap 7 (6-14) Blood Urea Nitrogen 16mg/dL (7-20) Creatinine 0.7mg/dL (0.6-1.0) Estimated GFR (Cockcroft-Gault) 106.3 Glucose Level 90mg/dL (70-99) Calcium Level 9.2mg/dL (8.5-10.1) Laboratory Tests 12/14/16 16:25 Course & Med Decision Making Course & Med Decision Making Pertinent Labs and Imaging studies reviewed. (See chart for details) Had long discussion at bedside to attempt explanation of chronic medical problems and medications. She is unable to restate this discussion back to me and seems to have little interest. Seems her greatest barrier to help otherwise is the need for paper scripts so she can take them to a medication assistance program. She states this did not happen with recent hospitalization. Discussed she should stop taking zofran and narcotics to not impede gastric emptying. Counseled her that pantoprazole and metoclopramide with better control her symptoms and these were recommended by GI specialist recently. She is feeling better after medications her and her labs are unremarkable. Paper scripts given for pantoprazole and metoclopramide; copied recent discharge scripts with same duration. Return precautions given. She states she understood. Dragon Disclaimer Dragon Disclaimer This electronic medical record was generated, in whole or in part, using a voice recognition dictation system. Departure Departure Impression: Primary Impression: Abdominal pain Disposition: HOME, SELF-CARE Condition: STABLE Referrals: NO PCP (PCP) Patient Instructions: Gastroparesis Additional Instructions: Take metoclopramide to help with nausea related to gastroparesis. Take pantoprazole to help with abdominal pain related to acid reflux. Stop taking Zofran. Follow-up with your primary care doctor and GI clinic. Return for any concerns. Scripts Metoclopramide Hcl 5 Mg Tablet5 Mg PO BIDAC PRN NAUSEA/VOMITING #60 TAB Prov:Mynor ROBERTSON MD 12/14/16 Pantoprazole Sodium 40 Mg Tablet.dr40 Mg PO BIDAC #60 TAB Ref 3 Prov:Mynor ROBERTSON MD 12/14/16 Problem Qualifiers Primary Impression: Abdominal pain Abdominal location: epigastric Qualified Code: R10.13 - Epigastric pain Mynor ROBERTSON MD Dec 14, 2016 15:03
[2016-12-14] MEDS ORDERED: LIDO:MAALOX:DONNATAL 1:1:1 15 ML SINGLE DOSE SWSW ONE (16:00)
[2016-12-14 16:40] LABS: CALCIUM 9.2 mg/dL (8.5-10.1); CREATININE 0.7 mg/dL (0.6-1.0); GFR 106.3; POTASSIUM 3.8 mmol/L (3.5-5.1)
[2016-12-14] MEDS ORDERED: METO5TAB PO (16:58)
[2016-12-14] MEDS ORDERED: PANT40TA5 PO (16:58)
== END 2016-12-14 17:14 | disposition home or self-care (01) ==
LOC: ER 14:09
DX: R10.13 Epigastric pain (principal); K21.9 Gastro-esophageal reflux disease without esophagitis; E78.00 Pure hypercholesterolemia, unspecified; I10 Essential (primary) hypertension; F12.10 Cannabis abuse, uncomplicated; Z88.0 Allergy status to penicillin; Z87.11 Personal history of peptic ulcer disease
CPT/HCPCS: 36415; 80048; 96374; 99284; J2765

== ENCOUNTER 2016-12-15 12:11 | Inpatient (IN) | payer SELFPAY ==
[~2016-12-15] VITALS: Ht 170.2 cm; Wt 68.2 kg
[2016-12-15] VITALS (8 sets, daily range): BP systolic 182–207; BP diastolic 107–132
[2016-12-15] MEDS ORDERED: ONDANSETRON PF 4 MG/2 ML VIAL. IV ONE ×2 (13:00→14:15)
[2016-12-15] MEDS ORDERED: IV NORMAL SALINE 1000ML BAG 1,000 ML IV ONE (13:00)
[2016-12-15 13:01] LABS: NEG OBC GOB NEG; POS OBC GOB POS
[2016-12-15 13:02] LABS: BASO % 1 % (0-3); EOS % 0 % (0-3); HEMATOCRIT 41.5 % (36.0-47.0); HEMOGLOBIN 13.3 g/dL (12.0-15.5); LYMPH # 1.7 x10^3/uL (1.0-4.8); LYMPH % 20 % (24-48); MEAN CORPUSCULAR HEMOGLOBIN 27 pg (25-35); MEAN CORPUSCULAR HGB CONC 32 g/dL (31-37); MEAN CORPUSCULAR VOLUME 84 fL (79-100); MONO % 3 % (0-9); NEUT % 76 % (31-73); PLATELET COUNT 254 x10^3/uL (140-400); RED BLOOD COUNT 4.93 x10^6/uL (3.50-5.40); RED CELL DISTRIBUTION WIDTH 16.8 % (11.5-14.5); WHITE BLOOD COUNT 8.6 x10^3/uL (4.0-11.0)
[2016-12-15 13:06] LABS: BILIRUBIN,URINE NEGATIVE (NEG); GLUCOSE,URINE NEGATIVE (NEG); NITRITE,URINE NEGATIVE (NEG); PH,URINE 8.5; PROTEIN,URINE NEGATIVE (NEG-TRACE); UROBILINOGEN,URINE 0.2 mg/dL (0.2 mg/dL)
[2016-12-15] MEDS: FENTANYL PF 100 MCG/2 ML VIAL. IV PRN ×4 (13:09→14:52)
[2016-12-15 13:10] LABS: CALCIUM 10.2 mg/dL (8.5-10.1); CREATININE 0.9 mg/dL (0.6-1.0); GFR 79.6; POTASSIUM 3.1 mmol/L (3.5-5.1)
[2016-12-15 13:16] LABS: ALBUMIN 4.5 g/dL (3.4-5.0); TOTAL BILIRUBIN 0.4 mg/dL (0.2-1.0)
[2016-12-15 13:24] LABS: BACTERIA,URINE 0 /HPF (0-FEW); SQUAMOUS EPITHELIAL CELL,UR FEW /LPF; WBC,URINE 0 /HPF (0-4)
[2016-12-15] MEDS ORDERED: PANTOPRAZOLE IV PUSH 40 MG VIAL. IVP ONE (13:30)
[2016-12-15] MEDS ORDERED: PANTOPRAZOLE SODIUM IV 80 MG in IV NORMAL SALINE 100ML 100 ML IV ONE (13:30)
[2016-12-15] MEDS ORDERED: CONTRAST GIVEN MC PRN (13:45)
[2016-12-15] MEDS ORDERED: IOHEXOL 300 MG/ML 75 ML VIAL IV ONE (13:45)
--- NOTE | 2016-12-15 13:56 | EKG ---
[facility] [address] [place] [id number] Test Date: 2016-12-15 Test Time: 13:19:34 Pat Name: DANIELA MANUEL Department: Room: Gender: F Psychological Operations: : 1965 Requested By: ADALI LARIOS Order Number: [id number] Reading MD: Yesy Stiles Measurements Intervals [place] Rate: 80 P: 64 WI: 164 QRS: 56 QRSD: 88 T: 54 QT: 426 QTc: 495 Interpretive Statements SINUS ARRHYTHMIA LEFT ATRIAL ABNORMALITY PROLONGED QT ABNORMAL ECG Electronically Signed On 12-18-2016 18:39:36 CDT by Yesy Stiles
[2016-12-15] MEDS ORDERED: LABETALOL 20 MG/4 ML DISP.SYRIN. ONE (14:00)
[2016-12-15] MEDS ORDERED: LABETALOL 20 MG/4 ML DISP.SYRIN. IVP ONE (14:00)
[2016-12-15] MEDS ORDERED: IV NORMAL SALINE 1000ML BAG 1,000 ML IV SCH ×2 (14:03→21:25)
[2016-12-15] MEDS ORDERED: ONDANSETRON PF 4 MG/2 ML VIAL. IV PRN (14:15)
[2016-12-15] MEDS ORDERED: METOCLOPRAMIDE 5 MG TABLET PO PRN (14:30)
--- NOTE | 2016-12-15 14:38 | RAD ---
CT of the abdomen and pelvis with contrast, 12/15/2016: History: Abdominal pain, vomiting, nausea and diarrhea Multidetector CT imaging was performed following an IV bolus injection of iodinated contrast material. Comparison is made to a study from 01/11/2016. The liver is unremarkable. No gallbladder abnormality is seen. The pancreas is unremarkable. The spleen is of normal size. No renal abnormality is detected. There is mild aortoiliac calcific plaquing without evidence of aneurysm. The uterus is unremarkable. There is a small amount of free fluid in the pelvis. The bowel loops are not dilated. A portion of the appendix is visualized and it shows no evidence of dilatation or inflammation. It contains a small amount of radiopaque material. The small bowel loops are unremarkable. A small hiatal hernia is noted. No free air is evident in the abdomen or pelvis. IMPRESSION: 1. Small amount of free fluid in the pelvis. This can be on a physiologic basis. 2. Small hiatal hernia. 3. The abdomen and pelvis are otherwise unremarkable. PQRS Compliance Statement: One or more of the following individualized dose reduction techniques were utilized for this examination: 1. Automated exposure control 2. Adjustment of the mA and/or kV according to patient size 3. Use of iterative reconstruction technique
--- NOTE | 2016-12-15 15:26 | PHYS DOC ---
Past Medical History Past Medical History: Anxiety, Depression, GERD, High Cholesterol, Hypertension , P.U.D., URI, Other Additional Past Medical Histor: Gastroparesis Past Surgical History: Tubal ligation, Other Additional Past Surgical Histo: foot surgery, explor. adominal sx Additional Information: 0.5 PPD Alcohol Use: None Drug Use: None Adult General Chief Complaint Chief Complaint: ABDOMINAL PAIN HPI HPI Patient is a 51 year old female who presents with abdominal pain & hematemesis. She has 4 day history of upper abdominal pain, nausea, today more episodes of vomiting than she can quantify now with coffee ground emesis. She reports diarrhea. She denies fevers/chills, hematochezia/melena, dysuria/ hematuria. She has previous history of gastroparesis, H, pylori. Currently taking sucralfate. Only abdominal surgery was a tubal ligation. PCP at [facility] [place]. Review of Systems Review of Systems Constitutional: Denies fever or chills HENT: Denies nasal congestion or sore throat Respiratory: Denies cough or shortness of breath Cardiovascular: Denies chest pain or edema GI: Reports abdominal pain, nausea, vomiting, hematemesis, diarrhea, denies bloody stools : Denies dysuria or hematuria Musculoskeletal: Denies back pain or joint pain Integument: Denies rash or skin lesions Neurologic: Denies headache, focal weakness or sensory changes Current Medications Current Medications Current Medications Medications (Trade) Dose Ordered Sig/Emile Start Time Stop Time Status Last Admin Dose Admin Fentanyl Citrate 50 mcg 50 mcg PRN Q15MIN PRN 12/15/16 13:00 12/16/16 12:59 12/15/16 14:52 50 MCG Ondansetron HCl (Zofran) 4 mg 1X ONCE 12/15/16 13:00 12/15/16 13:01 DC 12/15/16 13:08 4 MG Pantoprazole Sodium (Protonix Vial) 40 mg 1X ONCE 12/15/16 13:30 12/15/16 13:31 DC 12/15/16 14:04 40 MG Pantoprazole Sodium/Sodium Chloride (Protonix Iv/Iv Sodium Chloride 0.9% 100ml) 100 ml @ 10 mls/hr 1X ONCE 12/15/16 13:30 12/15/16 23:29 12/15/16 13:54 10 MLS/HR Sodium Chloride (Iv Sodium Chloride 0.9% 1000ml Bag) 1,000 ml @ 1,000 mls/hr 1X ONCE 12/15/16 13:00 12/15/16 13:59 DC 12/15/16 13:10 1,000 MLS/HR Allergies Allergies Allergies Coded Allergies Type Severity Reaction Last Updated Verified Penicillins Allergy Intermediate 12/01/16 Yes Physical Exam Physical Exam Constitutional: Well developed, well nourished, moaning, requesting pain medication. HENT: Normocephalic, atraumatic, bilateral external ears normal, oropharynx moist, nose normal. Eyes: conjunctiva normal, no discharge. Neck: supple, no stridor. Cardiovascular: RRR, no murmurs, no edema. Lungs & Thorax: LCTAB, no wheezing, no respiratory distress. Abdomen: normal bowel sounds, soft, generalized upper abdominal tenderness without rebound/guarding, no masses or pulsatile masses, nondistended. Skin: Warm, dry, no erythema, no rash. Back: No tenderness, no CVA tenderness. Extremities: No tenderness, no edema. Neurologic: Alert and oriented X 3, no focal deficits noted. Psychologic: Affect normal, judgement normal, mood normal. Current Patient Data Vital Signs Vital Signs Date Time Temp Pulse Resp B/P Pulse Ox O2 Delivery O2 Flow Rate FiO2 12/15/16 13:27 18 100 Room Air 12/15/16 13:22 82 194/112 12/15/16 12:18 97.9 97.9 Lab Values Laboratory Tests Test 12/15/16 11:58 12/15/16 12:45 12/15/16 12:50 POC Urine HCG, Qualitative Hcg negative (Negative) White Blood Count 8.6x10^3/uL (4.0-11.0) Red Blood Count 4.93x10^6/uL (3.50-5.40) Hemoglobin 13.3g/dL (12.0-15.5) Hematocrit 41.5% (36.0-47.0) Mean Corpuscular Volume 84fL (79-100) Mean Corpuscular Hemoglobin 27pg (25-35) Mean Corpuscular Hemoglobin Concent 32g/dL (31-37) Red Cell Distribution Width 16.8% (11.5-14.5) H Platelet Count 254x10^3/uL (140-400) Neutrophils (%) (Auto) 76% (31-73) H Lymphocytes (%) (Auto) 20% (24-48) L Monocytes (%) (Auto) 3% (0-9) Eosinophils (%) (Auto) 0% (0-3) Basophils (%) (Auto) 1% (0-3) Neutrophils # (Auto) 6.5x10^3uL (1.8-7.7) Lymphocytes # (Auto) 1.7x10^3/uL (1.0-4.8) Monocytes # (Auto) 0.3x10^3/uL (0.0-1.1) Eosinophils # (Auto) 0.0x10^3/uL (0.0-0.7) Basophils # (Auto) 0.0x10^3/uL (0.0-0.2) Gastric Fluid Occult Blood Positive (NEG) Sodium Level 142mmol/L (136-145) Potassium Level 3.1mmol/L (3.5-5.1) L Chloride Level 101mmol/L (98-107) Carbon Dioxide Level 24mmol/L (21-32) Anion Gap 17 (6-14) H Blood Urea Nitrogen 9mg/dL (7-20) Creatinine 0.9mg/dL (0.6-1.0) Estimated GFR (Cockcroft-Gault) 79.6 BUN/Creatinine Ratio 10 (6-20) Glucose Level 136mg/dL (70-99) H Calcium Level 10.2mg/dL (8.5-10.1) #H Total Bilirubin 0.4mg/dL (0.2-1.0) Aspartate Amino Transferase (AST) 19U/L (15-37) Alanine Aminotransferase (ALT) 20U/L (14-59) Alkaline Phosphatase 104U/L (46-116) Troponin I Quantitative < 0.017ng/mL (0.000-0.055) Total Protein 9.0g/dL (6.4-8.2) H Albumin 4.5g/dL (3.4-5.0) Albumin/Globulin Ratio 1.0 (1.0-1.7) Lipase 98U/L (73-393) Urine Collection Type Unknown Urine Color Yellow Urine Clarity Clear Urine pH 8.5 Urine Specific [place] 1.010 Urine Protein Negativemg/dL (NEG-TRACE) Urine Glucose (UA) Negativemg/dL (NEG) Urine Ketones (Stick) Negativemg/dL (NEG) Urine Blood Negative (NEG) Urine Nitrite Negative (NEG) Urine Bilirubin Negative (NEG) Urine Urobilinogen Dipstick 0.2mg/dL (0.2 mg/dL) Urine Leukocyte Esterase Negative (NEG) Urine RBC 1-2/HPF (0-2) Urine WBC 0/HPF (0-4) Urine Squamous Epithelial Cells Few/LPF Urine Bacteria 0/HPF (0-FEW) Laboratory Tests 12/15/16 12:45 Laboratory Tests 12/15/16 12:45 EKG EKG Interpreted by me: Sinus rhythm with sinus arrhythmia, no acute ST or T wave changes, QTC prolonged 495 ms otherwise normal intervals, no ectopy. [] Radiology/Procedures Radiology/Procedures PROCEDURE: ABD PELV W/ IV CONTRAST ONLY CT of the abdomen and pelvis with contrast, 12/15/2016: History: Abdominal pain, vomiting, nausea and diarrhea Multidetector CT imaging was performed following an IV bolus injection of iodinated contrast material. Comparison is made to a study from 01/11/2016. The liver is unremarkable. No gallbladder abnormality is seen. The pancreas is unremarkable. The spleen is of normal size. No renal abnormality is detected. There is mild aortoiliac calcific plaquing without evidence of aneurysm. The uterus is unremarkable. There is a small amount of free fluid in the pelvis. The bowel loops are not dilated. A portion of the appendix is visualized and it shows no evidence of dilatation or inflammation. It contains a small amount of radiopaque material. The small bowel loops are unremarkable. A small hiatal hernia is noted. No free air is evident in the abdomen or pelvis. IMPRESSION: 1. Small amount of free fluid in the pelvis. This can be on a physiologic basis. 2. Small hiatal hernia. 3. The abdomen and pelvis are otherwise unremarkable. PQRS Compliance Statement: One or more of the following individualized dose reduction techniques were utilized for this examination: 1. Automated exposure control 2. Adjustment of the mA and/or kV according to patient size 3. Use of iterative reconstruction technique DICTATED and SIGNED BY: KARRIE HORVATH MD DATE: 12/15/16 1428 [] Course & Med Decision Making Course & Med Decision Making Pertinent Labs and Imaging studies reviewed. (See chart for details) Patient presents with abdominal pain & vomiting with coffee ground emesis. Gave IV fluids, zofran, pain medication, protonix. Vitals & hemoglobin stable. No history of alcoholism. Recommended admission for further evaluation & treatment. She agrees with plan of care. Discussed with Dr. Veloz who agrees to admit to inpatient status, consult to Dr. Mccarty of GI. Patient is admitted in stable condition. [] Dragon Disclaimer Dragon Disclaimer This electronic medical record was generated, in whole or in part, using a voice recognition dictation system. Departure Departure Impression: Primary Impression: Upper GI bleed Additional Impressions: Abdominal pain Nausea & vomiting Essential hypertension Disposition: ADMITTED INPATIENT Admitting Physician: Frank Veloz Condition: STABLE Problem Qualifiers ADALI LARIOS MD Dec 15, 2016 15:25
[2016-12-15] MEDS: CITALOPRAM 10 MG TABLET. PO SCH (15:30)
--- NOTE | 2016-12-15 15:49 | HP ---
ADMIT DATE: 12/15/2016 CHIEF COMPLAINT: Abdominal pain and bright red blood per rectum. HISTORY OF PRESENT ILLNESS: The patient is a pleasant 51-year-old -[place] female well known to our service. Basically, she presents with abdominal pain and blood in her rectum. She has a GI bleed. I discussed the case with the ER physician. We are going to admit the patient and consult GI, put on some proton pump inhibitors. PAST MEDICAL HISTORY: Previous GI bleed. ALLERGIES: PENICILLIN. FAMILY HISTORY: Hypertension. SOCIAL HISTORY: She does not drink, smoke or take drugs. MEDICATIONS: Reviewed, please refer to the MRAD. REVIEW OF SYSTEMS: GENERAL: No history of weight change, weakness or fevers. SKIN: No bruising, hair changes or rashes. EYES: No blurred, double or loss of vision. NOSE AND THROAT: No history of nosebleeds, hoarseness or sore throat. HEART: No history of palpitations, chest pain or shortness of breath on exertion. LUNGS: Denies cough, hemoptysis, wheezing or shortness of breath. GASTROINTESTINAL: She complains of abdominal pain. GENITOURINARY: No history of frequency, urgency, hesitancy or nocturia. NEUROLOGIC: Denies history of numbness, tingling, tremor or weakness. PSYCHIATRIC: No history of panic, anxiety or depression. ENDOCRINE: No history of heat or cold intolerance, polyuria or polydipsia. EXTREMITIES: Denies muscle weakness, joint pain, pain on walking or stiffness. PHYSICAL EXAMINATION: VITAL SIGNS: Temperature afebrile, pulse 90, respirations 20, blood pressure ____. GENERAL: She is alert, cooperative, complaining of pain. HEART: Normal S1, S2. LUNGS: Clear. ABDOMEN: Soft. Decreased bowel sounds, tender. EXTREMITIES: No edema. SKIN: No rashes. PSYCHIATRIC: She is anxious. VASCULAR: Good capillary refill. ENDOCRINE: No thyromegaly. LYMPHATICS: No cervical nodes. HEMATOPOIETIC: No bruising. LABORATORY DATA: White count 8, hemoglobin 13, platelets 254. Electrolytes: Sodium 142, potassium 3.1, chloride 101, bicarbonate 24, BUN 9, creatinine 0.9, glucose 136. Troponin 0. ASSESSMENT AND PLAN: Gastrointestinal bleed. The patient has been admitted. We will give her IV Protonix, transfuse p.r.n., consult GI. Resume home medicines and IV fluids. WHIT CABA DO DR: SHELBY/lev JOB#: [id number] / [id number]
--- NOTE | 2016-12-15 15:56 | PDOC ---
Subjective: Subjective: Last GI consult 12/01/16. N/v, abd pain recurred last night. Notes some light blood in emesis. Didn't continue PPI or Reglan at home. Has been taking Zofran, liquid antacid, and sucralfate. Objective: Objective: GI has seen a few times for same. H/o non-compliance. H/o prior EGDs at with H.pylori identified and treated, no ulcer. H/o normal colonoscopy as well, not sure when. Vital Signs: Vital Signs Date Time Temp Pulse Resp B/P Pulse Ox O2 Delivery O2 Flow Rate FiO2 12/15/16 15:01 76 19 174/115 98 Room Air 12/15/16 14:46 99 12/15/16 12:18 97.9 97.9 Labs: Laboratory Tests Test 12/15/16 11:58 12/15/16 12:45 12/15/16 12:50 Bedside Urine HCG, Qualitative Hcg negative White Blood Count 8.6x10^3/uL Red Blood Count 4.93x10^6/uL Hemoglobin 13.3g/dL Hematocrit 41.5% Mean Corpuscular Volume 84fL Mean Corpuscular Hemoglobin 27pg Mean Corpuscular Hemoglobin Concent 32g/dL Red Cell Distribution Width 16.8% Platelet Count 254x10^3/uL Neutrophils (%) (Auto) 76% Lymphocytes (%) (Auto) 20% Monocytes (%) (Auto) 3% Eosinophils (%) (Auto) 0% Basophils (%) (Auto) 1% Neutrophils # (Auto) 6.5x10^3uL Lymphocytes # (Auto) 1.7x10^3/uL Monocytes # (Auto) 0.3x10^3/uL Eosinophils # (Auto) 0.0x10^3/uL Basophils # (Auto) 0.0x10^3/uL Gastric Fluid Occult Blood Positive Sodium Level 142mmol/L Potassium Level 3.1mmol/L Chloride Level 101mmol/L Carbon Dioxide Level 24mmol/L Anion Gap 17 Blood Urea Nitrogen 9mg/dL Creatinine 0.9mg/dL Estimated GFR (Cockcroft-Gault) 79.6 BUN/Creatinine Ratio 10 Glucose Level 136mg/dL Calcium Level 10.2mg/dL Total Bilirubin 0.4mg/dL Aspartate Amino Transf (AST/SGOT) 19U/L Alanine Aminotransferase (ALT/SGPT) 20U/L Alkaline Phosphatase 104U/L Troponin I Quantitative < 0.017ng/mL Total Protein 9.0g/dL Albumin 4.5g/dL Albumin/Globulin Ratio 1.0 Lipase 98U/L Urine Collection Type Unknown Urine Color Yellow Urine Clarity Clear Urine pH 8.5 Urine Specific [place] 1.010 Urine Protein Negativemg/dL Urine Glucose (UA) Negativemg/dL Urine Ketones (Stick) Negativemg/dL Urine Blood Negative Urine Nitrite Negative Urine Bilirubin Negative Urine Urobilinogen Dipstick 0.2mg/dL Urine Leukocyte Esterase Negative Urine RBC 1-2/HPF Urine WBC 0/HPF Urine Squamous Epithelial Cells Few/LPF Urine Bacteria 0/HPF Imaging: CT A/P IMPRESSION: 1. Small amount of free fluid in the pelvis. This can be on a physiologic basis. 2. Small hiatal hernia. 3. The abdomen and pelvis are otherwise unremarkable. PE: GEN: actively retching LUNGS: CTAB HEART: RRR ABD: epigastric tenderness NEURO/PSYCH: A & O 3 A/P: GERD/gastroparesis -recurrent symptoms/admissions (non-compliance, financial difficulties) -improved as inpatient w/ Reglan suspension -- Start IV PPI and IV Reglan, NPO, observe. ANDRES HOFFMAN Dec 15, 2016 15:56
[2016-12-15] MEDS ORDERED: PANTOPRAZOLE 40 MG TABLET. PO SCH (16:30)
[2016-12-15] MEDS ORDERED: SUCRALFATE 1 GM TABLET. PO SCH (16:30)
[2016-12-15] MEDS: MORPHINE SULFATE 2 MG/ML DISP.SYRIN. IV PRN (16:44)
[2016-12-15] MEDS: ENALAPRILAT 2.5 MG/2 ML VIAL. IV PRN (18:09)
[2016-12-15] MEDS: METOCLOPRAMIDE HCL 10 MG/2 ML VIAL. IV SCH ×2 (18:11→22:07)
[2016-12-15] MEDS ORDERED: LABETALOL 20 MG/4 ML DISP.SYRIN. IVP PRN (20:30)
[2016-12-15] MEDS: UBIDECARENONE 50 MG CAPSULE. PO SCH (21:00)
[2016-12-15] MEDS: GABAPENTIN 300 MG CAPSULE. PO SCH (21:00)
[2016-12-15] MEDS: ATORVASTATIN CALCIUM 10 MG TABLET. PO SCH (21:00)
[2016-12-15] MEDS ORDERED: NON FORMULARY ITEM (Omeprazole 20 MG) PO SCH (21:00)
[2016-12-15] MEDS ORDERED: FUROSEMIDE 40 MG/4 ML VIAL. IVP ONE (22:00)
[2016-12-15] MEDS: ONDANSETRON ODT 4 MG TAB.RAPDIS PO SCH (22:06)
[2016-12-15] MEDS: AMLODIPINE BESYLATE 10 MG TABLET. PO SCH (22:55)
[2016-12-16] VITALS (7 sets, daily range): BP systolic 89–131; BP diastolic 66–95
[2016-12-16] MEDS: ENALAPRILAT 2.5 MG/2 ML VIAL. IV PRN (00:32)
[2016-12-16] MEDS ORDERED: ONDANSETRON ODT 4 MG TAB.RAPDIS. ONE ×3 (03:57→20:56)
[2016-12-16] MEDS ORDERED: METOCLOPRAMIDE HCL 10 MG/2 ML VIAL. ONE (03:57)
[2016-12-16] MEDS: ONDANSETRON ODT 4 MG TAB.RAPDIS PO SCH ×3 (06:38→21:43)
[2016-12-16] MEDS: PANTOPRAZOLE IV PUSH 40 MG VIAL. IVP SCH (07:01)
[2016-12-16] MEDS: METOCLOPRAMIDE HCL 10 MG/2 ML VIAL. IV SCH ×4 (07:02→21:43)
[2016-12-16] MEDS: MORPHINE SULFATE 2 MG/ML DISP.SYRIN. IV PRN (07:21)
[2016-12-16 07:34] LABS: BASO # 0.1 x10^3/uL (0.0-0.2); BASO % 1 % (0-3); EOS % 0 % (0-3); HEMATOCRIT 47.4 % (36.0-47.0); HEMOGLOBIN 15.1 g/dL (12.0-15.5); LYMPH # 3.3 x10^3/uL (1.0-4.8); LYMPH % 20 % (24-48); MEAN CORPUSCULAR HEMOGLOBIN 27 pg (25-35); MEAN CORPUSCULAR HGB CONC 32 g/dL (31-37); MEAN CORPUSCULAR VOLUME 84 fL (79-100); MONO % 8 % (0-9); NEUT % 71 % (31-73); PLATELET COUNT 282 x10^3/uL (140-400); RED BLOOD COUNT 5.63 x10^6/uL (3.50-5.40); RED CELL DISTRIBUTION WIDTH 16.5 % (11.5-14.5); WHITE BLOOD COUNT 16.1 x10^3/uL (4.0-11.0)
[2016-12-16 07:46] LABS: CALCIUM 10.1 mg/dL (8.5-10.1); CREATININE 1.5 mg/dL (0.6-1.0); GFR 44.1; POTASSIUM 3.2 mmol/L (3.5-5.1)
[2016-12-16] MEDS: AMLODIPINE BESYLATE 10 MG TABLET. PO SCH (09:00)
[2016-12-16] MEDS: GABAPENTIN 300 MG CAPSULE. PO SCH ×3 (09:00→21:44)
[2016-12-16] MEDS: CITALOPRAM 10 MG TABLET. PO SCH (09:00)
[2016-12-16] MEDS: UBIDECARENONE 50 MG CAPSULE. PO SCH ×2 (09:00→21:45)
[2016-12-16] MEDS ORDERED: POTASSIUM CHLORIDE 20 MEQ TABLET.ER. PO ONE (11:00)
--- NOTE | 2016-12-16 11:02 | PDOC ---
PROGRESS NOTES Chief Complaint Chief Complaint cc: Abdominal pain A/P Abdominal pain, Hematemesis, Nicotine use Hypokalemia. HTN Anxiety, Depression, GERD, High Cholesterol, Hypertension Plan Protonix gtt Monitor hemogram, Transfuse blood If hemoglobin <7 gm/dl NPO Monitor hemoglobin. IVF Replace potassium BP stable. History of Present Illness History of Present Illness no vomiting of blood no fever no chest pain Vitals Vitals Vital Signs Date Time Temp Pulse Resp B/P Pulse Ox O2 Delivery O2 Flow Rate FiO2 12/16/16 10:36 100.0 93 16 107/85 98 Room Air 100.0 12/16/16 07:21 99.0 Physical Exam General: Alert, Oriented X3 Heart: Regular rate, Normal S1, Normal S2 Lungs: Clear Abdomen: Normal bowel sounds, Soft Extremities: No clubbing Labs LABS Laboratory Tests Test 12/15/16 11:58 12/15/16 12:45 12/15/16 12:50 12/16/16 07:00 Bedside Urine HCG, Qualitative Hcg negative (Negative) White Blood Count 8.6x10^3/uL (4.0-11.0) 16.1x10^3/uL (4.0-11.0) Red Blood Count 4.93x10^6/uL (3.50-5.40) 5.63x10^6/uL (3.50-5.40) Hemoglobin 13.3g/dL (12.0-15.5) 15.1g/dL (12.0-15.5) Hematocrit 41.5% (36.0-47.0) 47.4% (36.0-47.0) Mean Corpuscular Volume 84fL (79-100) 84fL (79-100) Mean Corpuscular Hemoglobin 27pg (25-35) 27pg (25-35) Mean Corpuscular Hemoglobin Concent 32g/dL (31-37) 32g/dL (31-37) Red Cell Distribution Width 16.8% (11.5-14.5) 16.5% (11.5-14.5) Platelet Count 254x10^3/uL (140-400) 282x10^3/uL (140-400) Neutrophils (%) (Auto) 76% (31-73) 71% (31-73) Lymphocytes (%) (Auto) 20% (24-48) 20% (24-48) Monocytes (%) (Auto) 3% (0-9) 8% (0-9) Eosinophils (%) (Auto) 0% (0-3) 0% (0-3) Basophils (%) (Auto) 1% (0-3) 1% (0-3) Neutrophils # (Auto) 6.5x10^3uL (1.8-7.7) 11.4x10^3uL (1.8-7.7) Lymphocytes # (Auto) 1.7x10^3/uL (1.0-4.8) 3.3x10^3/uL (1.0-4.8) Monocytes # (Auto) 0.3x10^3/uL (0.0-1.1) 1.2x10^3/uL (0.0-1.1) Eosinophils # (Auto) 0.0x10^3/uL (0.0-0.7) 0.0x10^3/uL (0.0-0.7) Basophils # (Auto) 0.0x10^3/uL (0.0-0.2) 0.1x10^3/uL (0.0-0.2) Gastric Fluid Occult Blood Positive (NEG) Sodium Level 142mmol/L (136-145) 139mmol/L (136-145) Potassium Level 3.1mmol/L (3.5-5.1) 3.2mmol/L (3.5-5.1) Chloride Level 101mmol/L (98-107) 97mmol/L (98-107) Carbon Dioxide Level 24mmol/L (21-32) 25mmol/L (21-32) Anion Gap 17 (6-14) 17 (6-14) Blood Urea Nitrogen 9mg/dL (7-20) 13mg/dL (7-20) Creatinine 0.9mg/dL (0.6-1.0) 1.5mg/dL (0.6-1.0) Estimated GFR (Cockcroft-Gault) 79.6 44.1 BUN/Creatinine Ratio 10 (6-20) Glucose Level 136mg/dL (70-99) 136mg/dL (70-99) Calcium Level 10.2mg/dL (8.5-10.1) 10.1mg/dL (8.5-10.1) Total Bilirubin 0.4mg/dL (0.2-1.0) Aspartate Amino Transf (AST/SGOT) 19U/L (15-37) Alanine Aminotransferase (ALT/SGPT) 20U/L (14-59) Alkaline Phosphatase 104U/L (46-116) Troponin I Quantitative < 0.017ng/mL (0.000-0.055) Total Protein 9.0g/dL (6.4-8.2) Albumin 4.5g/dL (3.4-5.0) Albumin/Globulin Ratio 1.0 (1.0-1.7) Lipase 98U/L (73-393) Urine Collection Type Unknown Urine Color Yellow Urine Clarity Clear Urine pH 8.5 Urine Specific [place] 1.010 Urine Protein Negativemg/dL (NEG-TRACE) Urine Glucose (UA) Negativemg/dL (NEG) Urine Ketones (Stick) Negativemg/dL (NEG) Urine Blood Negative (NEG) Urine Nitrite Negative (NEG) Urine Bilirubin Negative (NEG) Urine Urobilinogen Dipstick 0.2mg/dL (0.2 mg/dL) Urine Leukocyte Esterase Negative (NEG) Urine RBC 1-2/HPF (0-2) Urine WBC 0/HPF (0-4) Urine Squamous Epithelial Cells Few/LPF Urine Bacteria 0/HPF (0-FEW) Assessment and Plan Assessmemt and Plan Problems Medical Problems: (1) Abdominal pain Status: Acute (2) Essential hypertension Status: Acute (3) Nausea & vomiting Status: Acute (4) Upper GI bleed Status: Acute Problems: Comment Review of Relevant I have reviewed the following items starr (where applicable) has been applied. Labs Laboratory Tests Test 12/15/16 11:58 12/15/16 12:45 12/15/16 12:50 12/16/16 07:00 Bedside Urine HCG, Qualitative Hcg negative (Negative) White Blood Count 8.6x10^3/uL (4.0-11.0) 16.1x10^3/uL (4.0-11.0) Red Blood Count 4.93x10^6/uL (3.50-5.40) 5.63x10^6/uL (3.50-5.40) Hemoglobin 13.3g/dL (12.0-15.5) 15.1g/dL (12.0-15.5) Hematocrit 41.5% (36.0-47.0) 47.4% (36.0-47.0) Mean Corpuscular Volume 84fL (79-100) 84fL (79-100) Mean Corpuscular Hemoglobin 27pg (25-35) 27pg (25-35) Mean Corpuscular Hemoglobin Concent 32g/dL (31-37) 32g/dL (31-37) Red Cell Distribution Width 16.8% (11.5-14.5) 16.5% (11.5-14.5) Platelet Count 254x10^3/uL (140-400) 282x10^3/uL (140-400) Neutrophils (%) (Auto) 76% (31-73) 71% (31-73) Lymphocytes (%) (Auto) 20% (24-48) 20% (24-48) Monocytes (%) (Auto) 3% (0-9) 8% (0-9) Eosinophils (%) (Auto) 0% (0-3) 0% (0-3) Basophils (%) (Auto) 1% (0-3) 1% (0-3) Neutrophils # (Auto) 6.5x10^3uL (1.8-7.7) 11.4x10^3uL (1.8-7.7) Lymphocytes # (Auto) 1.7x10^3/uL (1.0-4.8) 3.3x10^3/uL (1.0-4.8) Monocytes # (Auto) 0.3x10^3/uL (0.0-1.1) 1.2x10^3/uL (0.0-1.1) Eosinophils # (Auto) 0.0x10^3/uL (0.0-0.7) 0.0x10^3/uL (0.0-0.7) Basophils # (Auto) 0.0x10^3/uL (0.0-0.2) 0.1x10^3/uL (0.0-0.2) Gastric Fluid Occult Blood Positive (NEG) Sodium Level 142mmol/L (136-145) 139mmol/L (136-145) Potassium Level 3.1mmol/L (3.5-5.1) 3.2mmol/L (3.5-5.1) Chloride Level 101mmol/L (98-107) 97mmol/L (98-107) Carbon Dioxide Level 24mmol/L (21-32) 25mmol/L (21-32) Anion Gap 17 (6-14) 17 (6-14) Blood Urea Nitrogen 9mg/dL (7-20) 13mg/dL (7-20) Creatinine 0.9mg/dL (0.6-1.0) 1.5mg/dL (0.6-1.0) Estimated GFR (Cockcroft-Gault) 79.6 44.1 BUN/Creatinine Ratio 10 (6-20) Glucose Level 136mg/dL (70-99) 136mg/dL (70-99) Calcium Level 10.2mg/dL (8.5-10.1) 10.1mg/dL (8.5-10.1) Total Bilirubin 0.4mg/dL (0.2-1.0) Aspartate Amino Transf (AST/SGOT) 19U/L (15-37) Alanine Aminotransferase (ALT/SGPT) 20U/L (14-59) Alkaline Phosphatase 104U/L (46-116) Troponin I Quantitative < 0.017ng/mL (0.000-0.055) Total Protein 9.0g/dL (6.4-8.2) Albumin 4.5g/dL (3.4-5.0) Albumin/Globulin Ratio 1.0 (1.0-1.7) Lipase 98U/L (73-393) Urine Collection Type Unknown Urine Color Yellow Urine Clarity Clear Urine pH 8.5 Urine Specific [place] 1.010 Urine Protein Negativemg/dL (NEG-TRACE) Urine Glucose (UA) Negativemg/dL (NEG) Urine Ketones (Stick) Negativemg/dL (NEG) Urine Blood Negative (NEG) Urine Nitrite Negative (NEG) Urine Bilirubin Negative (NEG) Urine Urobilinogen Dipstick 0.2mg/dL (0.2 mg/dL) Urine Leukocyte Esterase Negative (NEG) Urine RBC 1-2/HPF (0-2) Urine WBC 0/HPF (0-4) Urine Squamous Epithelial Cells Few/LPF Urine Bacteria 0/HPF (0-FEW) Laboratory Tests Test 12/15/16 11:58 12/15/16 12:45 12/15/16 12:50 12/16/16 07:00 Bedside Urine HCG, Qualitative Hcg negative (Negative) White Blood Count 8.6x10^3/uL (4.0-11.0) 16.1x10^3/uL (4.0-11.0) Red Blood Count 4.93x10^6/uL (3.50-5.40) 5.63x10^6/uL (3.50-5.40) Hemoglobin 13.3g/dL (12.0-15.5) 15.1g/dL (12.0-15.5) Hematocrit 41.5% (36.0-47.0) 47.4% (36.0-47.0) Mean Corpuscular Volume 84fL (79-100) 84fL (79-100) Mean Corpuscular Hemoglobin 27pg (25-35) 27pg (25-35) Mean Corpuscular Hemoglobin Concent 32g/dL (31-37) 32g/dL (31-37) Red Cell Distribution Width 16.8% (11.5-14.5) 16.5% (11.5-14.5) Platelet Count 254x10^3/uL (140-400) 282x10^3/uL (140-400) Neutrophils (%) (Auto) 76% (31-73) 71% (31-73) Lymphocytes (%) (Auto) 20% (24-48) 20% (24-48) Monocytes (%) (Auto) 3% (0-9) 8% (0-9) Eosinophils (%) (Auto) 0% (0-3) 0% (0-3) Basophils (%) (Auto) 1% (0-3) 1% (0-3) Neutrophils # (Auto) 6.5x10^3uL (1.8-7.7) 11.4x10^3uL (1.8-7.7) Lymphocytes # (Auto) 1.7x10^3/uL (1.0-4.8) 3.3x10^3/uL (1.0-4.8) Monocytes # (Auto) 0.3x10^3/uL (0.0-1.1) 1.2x10^3/uL (0.0-1.1) Eosinophils # (Auto) 0.0x10^3/uL (0.0-0.7) 0.0x10^3/uL (0.0-0.7) Basophils # (Auto) 0.0x10^3/uL (0.0-0.2) 0.1x10^3/uL (0.0-0.2) Gastric Fluid Occult Blood Positive (NEG) Sodium Level 142mmol/L (136-145) 139mmol/L (136-145) Potassium Level 3.1mmol/L (3.5-5.1) 3.2mmol/L (3.5-5.1) Chloride Level 101mmol/L (98-107) 97mmol/L (98-107) Carbon Dioxide Level 24mmol/L (21-32) 25mmol/L (21-32) Anion Gap 17 (6-14) 17 (6-14) Blood Urea Nitrogen 9mg/dL (7-20) 13mg/dL (7-20) Creatinine 0.9mg/dL (0.6-1.0) 1.5mg/dL (0.6-1.0) Estimated GFR (Cockcroft-Gault) 79.6 44.1 BUN/Creatinine Ratio 10 (6-20) Glucose Level 136mg/dL (70-99) 136mg/dL (70-99) Calcium Level 10.2mg/dL (8.5-10.1) 10.1mg/dL (8.5-10.1) Total Bilirubin 0.4mg/dL (0.2-1.0) Aspartate Amino Transf (AST/SGOT) 19U/L (15-37) Alanine Aminotransferase (ALT/SGPT) 20U/L (14-59) Alkaline Phosphatase 104U/L (46-116) Troponin I Quantitative < 0.017ng/mL (0.000-0.055) Total Protein 9.0g/dL (6.4-8.2) Albumin 4.5g/dL (3.4-5.0) Albumin/Globulin Ratio 1.0 (1.0-1.7) Lipase 98U/L (73-393) Urine Collection Type Unknown Urine Color Yellow Urine Clarity Clear Urine pH 8.5 Urine Specific [place] 1.010 Urine Protein Negativemg/dL (NEG-TRACE) Urine Glucose (UA) Negativemg/dL (NEG) Urine Ketones (Stick) Negativemg/dL (NEG) Urine Blood Negative (NEG) Urine Nitrite Negative (NEG) Urine Bilirubin Negative (NEG) Urine Urobilinogen Dipstick 0.2mg/dL (0.2 mg/dL) Urine Leukocyte Esterase Negative (NEG) Urine RBC 1-2/HPF (0-2) Urine WBC 0/HPF (0-4) Urine Squamous Epithelial Cells Few/LPF Urine Bacteria 0/HPF (0-FEW) Medications Current Medications Sodium Chloride (Iv Sodium Chloride 0.9% 1000ml Bag) 1,000 ml @ 1,000 mls/hr 1X ONCE IV Last administered on 12/15/16 13:10; Start 12/15/16 at 13:00; Stop 12/15/16 at 13:59; Status DC Ondansetron HCl (Zofran) 4 mg 1X ONCE IV Last administered on 12/15/16 13:08 ; Start 12/15/16 at 13:00; Stop 12/15/16 at 13:01; Status DC Fentanyl Citrate 50 mcg 50 mcg PRN Q15MIN PRN IV PAIN GREATER THAN 3/10 Last administered on 12/15/16 14:52; Start 12/15/16 at 13:00; Stop 12/16/16 at 12:59 Pantoprazole Sodium/Sodium Chloride (Protonix Iv/Iv Sodium Chloride 0.9% 100ml) 100 ml @ 10 mls/hr 1X ONCE IV Last administered on 12/15/16 13:54; Start at 13:30; Stop 12/15/16 at 23:29; Status DC Pantoprazole Sodium (Protonix Vial) 40 mg 1X ONCE IVP Last administered on 14:04; Start 12/15/16 at 13:30; Stop 12/15/16 at 13:31; Status DC Iohexol (Omnipaque 300 Mg/ml) 75 ml 1X ONCE IV Last administered on 12/15/16 14:06; Start 12/15/16 at 13:45; Stop 12/15/16 at 13:46; Status DC Info (Do NOT chart on this entry -- for MONITORING) 1 each PRN DAILY PRN MC SEE COMMENTS; Start 12/15/16 at 13:45; Stop 12/17/16 at 13:44 Labetalol HCl (Normodyne) 20 mg 1X ONCE IVP Last administered on 12/15/16 14: 39; Start 12/15/16 at 14:00; Stop 12/15/16 at 14:01; Status DC Labetalol HCl (Normodyne) 20 mg STK-MED ONCE .ROUTE ; Start 12/15/16 at 14:00; Stop 12/15/16 at 14:01; Status DC Ondansetron HCl (Zofran) 4 mg PRN Q8HRS PRN IV NAUSEA/VOMITING; Start 12/15/16 at 14:15; Stop 12/16/16 at 14:14 Morphine Sulfate 2 mg 2 mg PRN Q2HR PRN IV PAIN Last administered on 12/16/16 07:21; Start 12/15/16 at 14:15; Stop 12/16/16 at 14:14 Sodium Chloride (Iv Sodium Chloride 0.9% 1000ml Bag) 1,000 ml @ 100 mls/hr Q10H IV Last administered on 12/15/16 17:00; Start 12/15/16 at 14:03; Stop at 21:27; Status DC Ondansetron HCl (Zofran) 4 mg 1X ONCE IV Last administered on 12/15/16 14:09 ; Start 12/15/16 at 14:15; Stop 12/15/16 at 14:15; Status DC Amlodipine Besylate (Norvasc) 10 mg DAILY PO Last administered on 12/15/16 22: 55; Start 12/15/16 at 15:30 Atorvastatin Calcium (Lipitor) 10 mg QHS PO ; Start 12/15/16 at 21:00 Citalopram Hydrobromide (Celexa) 10 mg DAILY PO ; Start 12/15/16 at 15:30 Gabapentin (Neurontin) 300 mg TID PO ; Start 12/15/16 at 21:00 Acetaminophen/ Hydrocodone Bitart (Lortab 5/325) 1 tab PRN Q6HRS PRN PO PAIN MILD TO MOD; Start 12/15/16 at 14:30 Metoclopramide HCl (Reglan) 5 mg PRN BID PRN PO NAUSEA/VOMITING; Start at 14:30; Stop 12/15/16 at 15:49; Status DC Ondansetron HCl (Zofran Odt) 4 mg Q8HRS PO Last administered on 12/16/16 06:38 ; Start 12/15/16 at 22:00 Pantoprazole Sodium (Protonix) 40 mg BIDAC PO ; Start 12/15/16 at 16:30; Stop at 16:30; Status DC Sucralfate (Carafate) 1 gm QIDACHS PO ; Start 12/15/16 at 16:30; Stop 12/15/16 at 16:30; Status DC Tramadol HCl (Ultram) 50 mg PRN Q6HRS PRN PO MODERATE PAIN; Start 12/15/16 at 14:30 Non-Formulary Medication 20 mg BID PO ; Start 12/15/16 at 21:00; Status UNV Coenzyme Q10 (Coenzyme Q10) 200 mg BID PO ; Start 12/15/16 at 21:00 Metoclopramide HCl (Reglan) 10 mg QIDACHS IV Last administered on 12/15/16 22: 07; Start 12/15/16 at 16:30; Stop 12/16/16 at 05:43; Status DC Pantoprazole Sodium (Protonix Vial) 40 mg DAILYAC IVP Last administered on 12/16 07:01; Start 12/16/16 at 07:30 Enalaprilat (Vasotec) 2.5 mg PRN Q6HRS PRN IV HYPERTENSION, SEE COMMENTS Last administered on 12/16/16 00:32; Start 12/15/16 at 17:45 Labetalol HCl 20 mg 20 mg PRN Q6HRS PRN IVP HYPERTENSION, SEE COMMENTS Last administered on 12/15/16 20:38; Start 12/15/16 at 20:30 Sodium Chloride (Iv Sodium Chloride 0.9% 1000ml Bag) 1,000 ml @ 30 mls/hr Q24H IV ; Start 12/15/16 at 21:25; Stop 12/15/16 at 21:28; Status DC Furosemide (Lasix) 60 mg 1X ONCE IVP Last administered on 12/15/16 22:07; Start 12/15/16 at 22:00; Stop 12/15/16 at 22:01; Status DC Ondansetron HCl (Zofran Odt) 4 mg STK-MED ONCE .ROUTE ; Start 12/16/16 at 03:57 ; Stop 12/16/16 at 03:58; Status DC Metoclopramide HCl (Reglan) 10 mg STK-MED ONCE .ROUTE ; Start 12/16/16 at 03:57 ; Stop 12/16/16 at 03:58; Status DC Metoclopramide HCl (Reglan) 10 mg QIDACHS IV Last administered on 12/16/16 07: 02; Start 12/16/16 at 07:30 Potassium Chloride (Klor-Con) 40 meq 1X ONCE PO ; Start 12/16/16 at 11:00; Stop 12/16/16 at 11:01; Status UNV Active Scripts Active Metoclopramide Hcl 5 Mg Tablet 5 Mg PO BIDAC PRN Pantoprazole Sodium 40 Mg Tablet.dr 40 Mg PO BIDAC [place] 5-325 Tablet (Acetaminophen/Hydrocodone Bitart) 1 Each Tablet 1 Tab PO PRN Q6HRS PRN Carafate (Sucralfate) 1 Gm Tablet 1 Tab PO QID Omeprazole 20 Mg Tablet.dr 20 Mg PO BID Celexa (Citalopram Hydrobromide) 10 Mg Tablet 10 Mg PO DAILY Tramadol Hcl 50 Mg Tablet 50 Mg PO PRN Q6HRS PRN Zofran Odt (Ondansetron) 4 Mg Tab.rapdis 1 Tab SL Q8HRS Reported Amlodipine Besylate 10 Mg Tablet 10 Mg PO DAILY Gabapentin 300 Mg Capsule 300 Mg PO TID Co Q-10 (Ubidecarenone) 200 Mg Capsule 200 Mg PO BID Atorvastatin Calcium 10 Mg Tablet 1 Tab PO DAILY Vitals/I & O Vital Sign - Last 24 Hours 12/15/16 12/15/16 12/15/16 12/15/16 12:18 13:00 13:09 13:22 Temp 97.9 97.9 Pulse 98 78 82 Resp 24 20 20 20 B/P 185/118 210/111 194/112 Pulse Ox 100 100 99 99 O2 Delivery Room Air Room Air Room Air Room Air 3/12/15/16 12/15/16 12/15/16 13:27 13:46 13:54 14:39 Pulse 84 76 Resp 18 19 18 B/P 188/105 202/110 Pulse Ox 100 100 100 O2 Delivery Room Air Room Air Room Air 12/15/16 12/15/16 12/15/16 12/15/16 14:46 14:50 14:52 15:01 Pulse 78 78 76 Resp 17 17 23 19 B/P 202/107 186/108 174/115 Pulse Ox 99 100 98 O2 Delivery Room Air Room Air Room Air Room Air O2 Flow Rate 99 12/15/16 12/15/16 12/15/16 12/15/16 16:30 16:30 16:44 16:56 Temp 96.0 96.0 Pulse 78 71 Resp 20 20 20 B/P 193/121 190/112 Pulse Ox 98 O2 Delivery Room Air Room Air Room Air O2 Flow Rate 99.0 12/15/16 12/15/16 12/15/16 12/15/16 17:14 18:00 18:09 18:30 Pulse 84 80 84 Resp 18 20 B/P 203/132 181/125 182/107 Pulse Ox 98 O2 Delivery Room Air Room Air 12/15/16 12/15/16 12/15/16 12/15/16 19:00 20:00 20:38 21:27 Temp 99.1 99.1 Pulse 106 89 79 Resp 20 B/P 186/123 207/128 197/126 Pulse Ox 99 O2 Delivery Room Air Room Air 12/15/16 12/15/16 12/15/16 12/16/16 22:08 22:46 22:55 00:32 Pulse 81 94 94 105 Resp 18 B/P 207/120 194/132 194/132 191/128 12/16/16 12/16/16 12/16/16 12/16/16 02:48 07:00 07:21 07:29 Temp 98.8 98.8 98.8 98.8 Pulse 89 66 87 Resp 16 20 20 B/P 131/95 89/66 112/81 Pulse Ox 95 99 98 O2 Delivery Room Air Room Air Room Air O2 Flow Rate 99.0 12/16/16 10:36 Temp 100.0 100.0 Pulse 93 Resp 16 B/P 107/85 Pulse Ox 98 O2 Delivery Room Air Intake and Output 12/15/16 12/15/16 12/16/16 15:00 23:00 07:00 Intake Total 1000 ml 0 ml Output Total 32 ml Balance 1000 ml -32 ml JUAN STODDARD MD Dec 16, 2016 11:02
[2016-12-16] MEDS ORDERED: IV NORMAL SALINE 1000ML BAG 1,000 ML IV ONE (11:15)
--- NOTE | 2016-12-16 12:29 | PDOC ---
Subjective: Subjective: A little better today. No retching. Still some nausea and abd pain. Objective: Objective: Tmax 100. WBC and Cr up today. Vital Signs: Vital Signs Date Time Temp Pulse Resp B/P Pulse Ox O2 Delivery O2 Flow Rate FiO2 12/16/16 10:36 100.0 93 16 107/85 98 Room Air 100.0 12/16/16 07:21 99.0 Labs: Laboratory Tests Test 12/15/16 12:45 12/15/16 12:50 12/16/16 07:00 White Blood Count 8.6x10^3/uL 16.1x10^3/uL Red Blood Count 4.93x10^6/uL 5.63x10^6/uL Hemoglobin 13.3g/dL 15.1g/dL Hematocrit 41.5% 47.4% Mean Corpuscular Volume 84fL 84fL Mean Corpuscular Hemoglobin 27pg 27pg Mean Corpuscular Hemoglobin Concent 32g/dL 32g/dL Red Cell Distribution Width 16.8% 16.5% Platelet Count 254x10^3/uL 282x10^3/uL Neutrophils (%) (Auto) 76% 71% Lymphocytes (%) (Auto) 20% 20% Monocytes (%) (Auto) 3% 8% Eosinophils (%) (Auto) 0% 0% Basophils (%) (Auto) 1% 1% Neutrophils # (Auto) 6.5x10^3uL 11.4x10^3uL Lymphocytes # (Auto) 1.7x10^3/uL 3.3x10^3/uL Monocytes # (Auto) 0.3x10^3/uL 1.2x10^3/uL Eosinophils # (Auto) 0.0x10^3/uL 0.0x10^3/uL Basophils # (Auto) 0.0x10^3/uL 0.1x10^3/uL Gastric Fluid Occult Blood Positive Sodium Level 142mmol/L 139mmol/L Potassium Level 3.1mmol/L 3.2mmol/L Chloride Level 101mmol/L 97mmol/L Carbon Dioxide Level 24mmol/L 25mmol/L Anion Gap 17 17 Blood Urea Nitrogen 9mg/dL 13mg/dL Creatinine 0.9mg/dL 1.5mg/dL Estimated GFR (Cockcroft-Gault) 79.6 44.1 BUN/Creatinine Ratio 10 Glucose Level 136mg/dL 136mg/dL Calcium Level 10.2mg/dL 10.1mg/dL Total Bilirubin 0.4mg/dL Aspartate Amino Transf (AST/SGOT) 19U/L Alanine Aminotransferase (ALT/SGPT) 20U/L Alkaline Phosphatase 104U/L Troponin I Quantitative < 0.017ng/mL Total Protein 9.0g/dL Albumin 4.5g/dL Albumin/Globulin Ratio 1.0 Lipase 98U/L Urine Collection Type Unknown Urine Color Yellow Urine Clarity Clear Urine pH 8.5 Urine Specific [place] 1.010 Urine Protein Negativemg/dL Urine Glucose (UA) Negativemg/dL Urine Ketones (Stick) Negativemg/dL Urine Blood Negative Urine Nitrite Negative Urine Bilirubin Negative Urine Urobilinogen Dipstick 0.2mg/dL Urine Leukocyte Esterase Negative Urine RBC 1-2/HPF Urine WBC 0/HPF Urine Squamous Epithelial Cells Few/LPF Urine Bacteria 0/HPF PE: GEN: looks better LUNGS: clear anteriorly HEART: RRR ABD: epigastric/periumbilical discomfort NEURO/PSYCH: A & O 3 A/P: GERD/gastroparesis -recurrent symptoms/admissions (non-compliance, financial difficulties) -n/v better today back on Reglan and PPI. -- Is NPO except for ice chips and sips of water w/ meds. Will review w/ Dr. Mccarty re: trial of clears today. Continue IV PPI and Reglan. ANDRES HOFFMAN Dec 16, 2016 12:29
[2016-12-16 16:41] LABS: HEMATOCRIT 45.1 % (36.0-47.0); HEMOGLOBIN 14.2 g/dL (12.0-15.5); RED BLOOD COUNT 5.33 x10^6/uL (3.50-5.40); WHITE BLOOD COUNT 13.7 x10^3/uL (4.0-11.0)
[2016-12-16] MEDS: ATORVASTATIN CALCIUM 10 MG TABLET. PO SCH (21:44)
[2016-12-16] MEDS: HYDROCODONE/APAP 5/325MG TABLET. PO PRN (21:49)
[2016-12-17 03:00] VITALS: BP 146/77
[2016-12-17] MEDS ORDERED: ONDANSETRON ODT 4 MG TAB.RAPDIS. ONE (04:37)
[2016-12-17] MEDS: HYDROCODONE/APAP 5/325MG TABLET. PO PRN ×3 (04:45→20:52)
[2016-12-17] MEDS: ONDANSETRON ODT 4 MG TAB.RAPDIS PO SCH (04:45)
[2016-12-17] MEDS: PANTOPRAZOLE IV PUSH 40 MG VIAL. IVP SCH (04:46)
[2016-12-17] MEDS: METOCLOPRAMIDE HCL 10 MG/2 ML VIAL. IV SCH (04:46)
[2016-12-17 07:00] VITALS: BP 134/70
[2016-12-17] MEDS ORDERED: GABAPENTIN 300 MG CAPSULE. PO ONE (07:35)
[2016-12-17] MEDS: GABAPENTIN 300 MG CAPSULE. PO SCH ×3 (09:16→20:49)
[2016-12-17] MEDS: CITALOPRAM 10 MG TABLET. PO SCH (09:16)
[2016-12-17] MEDS: AMLODIPINE BESYLATE 10 MG TABLET. PO SCH (09:16)
[2016-12-17] MEDS: TRAMADOL 50 MG TABLET. PO PRN ×2 (09:18→16:24)
[2016-12-17] MEDS: UBIDECARENONE 50 MG CAPSULE. PO SCH ×2 (10:21→20:49)
--- NOTE | 2016-12-17 10:36 | PDOC ---
G I PROGRESS NOTE Subjective Feeling much better. Physical Exam Lungs clear. RRR Abdomen soft, not tender. Review of Relevant I have reviewed the following items starr (where applicable) has been applied. Labs Laboratory Tests Test 12/15/16 11:58 12/15/16 12:45 12/15/16 12:50 12/16/16 07:00 Bedside Urine HCG, Qualitative Hcg negative (Negative) White Blood Count 8.6x10^3/uL (4.0-11.0) 16.1x10^3/uL (4.0-11.0) Red Blood Count 4.93x10^6/uL (3.50-5.40) 5.63x10^6/uL (3.50-5.40) Hemoglobin 13.3g/dL (12.0-15.5) 15.1g/dL (12.0-15.5) Hematocrit 41.5% (36.0-47.0) 47.4% (36.0-47.0) Mean Corpuscular Volume 84fL (79-100) 84fL (79-100) Mean Corpuscular Hemoglobin 27pg (25-35) 27pg (25-35) Mean Corpuscular Hemoglobin Concent 32g/dL (31-37) 32g/dL (31-37) Red Cell Distribution Width 16.8% (11.5-14.5) 16.5% (11.5-14.5) Platelet Count 254x10^3/uL (140-400) 282x10^3/uL (140-400) Neutrophils (%) (Auto) 76% (31-73) 71% (31-73) Lymphocytes (%) (Auto) 20% (24-48) 20% (24-48) Monocytes (%) (Auto) 3% (0-9) 8% (0-9) Eosinophils (%) (Auto) 0% (0-3) 0% (0-3) Basophils (%) (Auto) 1% (0-3) 1% (0-3) Neutrophils # (Auto) 6.5x10^3uL (1.8-7.7) 11.4x10^3uL (1.8-7.7) Lymphocytes # (Auto) 1.7x10^3/uL (1.0-4.8) 3.3x10^3/uL (1.0-4.8) Monocytes # (Auto) 0.3x10^3/uL (0.0-1.1) 1.2x10^3/uL (0.0-1.1) Eosinophils # (Auto) 0.0x10^3/uL (0.0-0.7) 0.0x10^3/uL (0.0-0.7) Basophils # (Auto) 0.0x10^3/uL (0.0-0.2) 0.1x10^3/uL (0.0-0.2) Gastric Fluid Occult Blood Positive (NEG) Sodium Level 142mmol/L (136-145) 139mmol/L (136-145) Potassium Level 3.1mmol/L (3.5-5.1) 3.2mmol/L (3.5-5.1) Chloride Level 101mmol/L (98-107) 97mmol/L (98-107) Carbon Dioxide Level 24mmol/L (21-32) 25mmol/L (21-32) Anion Gap 17 (6-14) 17 (6-14) Blood Urea Nitrogen 9mg/dL (7-20) 13mg/dL (7-20) Creatinine 0.9mg/dL (0.6-1.0) 1.5mg/dL (0.6-1.0) Estimated GFR (Cockcroft-Gault) 79.6 44.1 BUN/Creatinine Ratio 10 (6-20) Glucose Level 136mg/dL (70-99) 136mg/dL (70-99) Calcium Level 10.2mg/dL (8.5-10.1) 10.1mg/dL (8.5-10.1) Total Bilirubin 0.4mg/dL (0.2-1.0) Aspartate Amino Transf (AST/SGOT) 19U/L (15-37) Alanine Aminotransferase (ALT/SGPT) 20U/L (14-59) Alkaline Phosphatase 104U/L (46-116) Troponin I Quantitative < 0.017ng/mL (0.000-0.055) Total Protein 9.0g/dL (6.4-8.2) Albumin 4.5g/dL (3.4-5.0) Albumin/Globulin Ratio 1.0 (1.0-1.7) Lipase 98U/L (73-393) Urine Collection Type Unknown Urine Color Yellow Urine Clarity Clear Urine pH 8.5 Urine Specific [place] 1.010 Urine Protein Negativemg/dL (NEG-TRACE) Urine Glucose (UA) Negativemg/dL (NEG) Urine Ketones (Stick) Negativemg/dL (NEG) Urine Blood Negative (NEG) Urine Nitrite Negative (NEG) Urine Bilirubin Negative (NEG) Urine Urobilinogen Dipstick 0.2mg/dL (0.2 mg/dL) Urine Leukocyte Esterase Negative (NEG) Urine RBC 1-2/HPF (0-2) Urine WBC 0/HPF (0-4) Urine Squamous Epithelial Cells Few/LPF Urine Bacteria 0/HPF (0-FEW) Test 12/16/16 16:35 White Blood Count 13.7x10^3/uL (4.0-11.0) Red Blood Count 5.33x10^6/uL (3.50-5.40) Hemoglobin 14.2g/dL (12.0-15.5) Hematocrit 45.1% (36.0-47.0) Mean Corpuscular Volume 85fL (79-100) Mean Corpuscular Hemoglobin 27pg (25-35) Mean Corpuscular Hemoglobin Concent 32g/dL (31-37) Red Cell Distribution Width 17.0% (11.5-14.5) Platelet Count 246x10^3/uL (140-400) Laboratory Tests Test 12/16/16 16:35 White Blood Count 13.7x10^3/uL (4.0-11.0) Red Blood Count 5.33x10^6/uL (3.50-5.40) Hemoglobin 14.2g/dL (12.0-15.5) Hematocrit 45.1% (36.0-47.0) Mean Corpuscular Volume 85fL (79-100) Mean Corpuscular Hemoglobin 27pg (25-35) Mean Corpuscular Hemoglobin Concent 32g/dL (31-37) Red Cell Distribution Width 17.0% (11.5-14.5) Platelet Count 246x10^3/uL (140-400) Medications Current Medications Sodium Chloride (Iv Sodium Chloride 0.9% 1000ml Bag) 1,000 ml @ 1,000 mls/hr 1X ONCE IV Last administered on 12/15/16 13:10; Start 12/15/16 at 13:00; Stop 12/15/16 at 13:59; Status DC Ondansetron HCl (Zofran) 4 mg 1X ONCE IV Last administered on 12/15/16 13:08 ; Start 12/15/16 at 13:00; Stop 12/15/16 at 13:01; Status DC Fentanyl Citrate 50 mcg 50 mcg PRN Q15MIN PRN IV PAIN GREATER THAN 3/10 Last administered on 12/15/16 14:52; Start 12/15/16 at 13:00; Stop 12/16/16 at 12:59 ; Status DC Pantoprazole Sodium/Sodium Chloride (Protonix Iv/Iv Sodium Chloride 0.9% 100ml) 100 ml @ 10 mls/hr 1X ONCE IV Last administered on 12/15/16 13:54; Start at 13:30; Stop 12/15/16 at 23:29; Status DC Pantoprazole Sodium (Protonix Vial) 40 mg 1X ONCE IVP Last administered on 14:04; Start 12/15/16 at 13:30; Stop 12/15/16 at 13:31; Status DC Iohexol (Omnipaque 300 Mg/ml) 75 ml 1X ONCE IV Last administered on 12/15/16 14:06; Start 12/15/16 at 13:45; Stop 12/15/16 at 13:46; Status DC Info (Do NOT chart on this entry -- for MONITORING) 1 each PRN DAILY PRN MC SEE COMMENTS; Start 12/15/16 at 13:45; Stop 12/17/16 at 13:44 Labetalol HCl (Normodyne) 20 mg 1X ONCE IVP Last administered on 12/15/16 14: 39; Start 12/15/16 at 14:00; Stop 12/15/16 at 14:01; Status DC Labetalol HCl (Normodyne) 20 mg STK-MED ONCE .ROUTE ; Start 12/15/16 at 14:00; Stop 12/15/16 at 14:01; Status DC Ondansetron HCl (Zofran) 4 mg PRN Q8HRS PRN IV NAUSEA/VOMITING; Start 12/15/16 at 14:15; Stop 12/16/16 at 14:14; Status DC Morphine Sulfate 2 mg 2 mg PRN Q2HR PRN IV PAIN Last administered on 12/16/16 07:21; Start 12/15/16 at 14:15; Stop 12/16/16 at 14:14; Status DC Sodium Chloride (Iv Sodium Chloride 0.9% 1000ml Bag) 1,000 ml @ 100 mls/hr Q10H IV Last administered on 12/15/16 17:00; Start 12/15/16 at 14:03; Stop at 21:27; Status DC Ondansetron HCl (Zofran) 4 mg 1X ONCE IV Last administered on 12/15/16 14:09 ; Start 12/15/16 at 14:15; Stop 12/15/16 at 14:15; Status DC Amlodipine Besylate (Norvasc) 10 mg DAILY PO Last administered on 12/17/16 09: 16; Start 12/15/16 at 15:30 Atorvastatin Calcium (Lipitor) 10 mg QHS PO Last administered on 12/16/16 21: 44; Start 12/15/16 at 21:00 Citalopram Hydrobromide (Celexa) 10 mg DAILY PO Last administered on 12/17/16 09:16; Start 12/15/16 at 15:30 Gabapentin (Neurontin) 300 mg TID PO Last administered on 12/17/16 09:16; Start 12/15/16 at 21:00 Acetaminophen/ Hydrocodone Bitart (Lortab 5/325) 1 tab PRN Q6HRS PRN PO PAIN MILD TO MOD Last administered on 12/17/16 04:45; Start 12/15/16 at 14:30 Metoclopramide HCl (Reglan) 5 mg PRN BID PRN PO NAUSEA/VOMITING; Start at 14:30; Stop 12/15/16 at 15:49; Status DC Ondansetron HCl (Zofran Odt) 4 mg Q8HRS PO Last administered on 12/17/16 04:45 ; Start 12/15/16 at 22:00 Pantoprazole Sodium (Protonix) 40 mg BIDAC PO ; Start 12/15/16 at 16:30; Stop at 16:30; Status DC Sucralfate (Carafate) 1 gm QIDACHS PO ; Start 12/15/16 at 16:30; Stop 12/15/16 at 16:30; Status DC Tramadol HCl (Ultram) 50 mg PRN Q6HRS PRN PO MODERATE PAIN Last administered on 12/17/16 09:18; Start 12/15/16 at 14:30 Non-Formulary Medication 20 mg BID PO ; Start 12/15/16 at 21:00; Status UNV Coenzyme Q10 (Coenzyme Q10) 200 mg BID PO Last administered on 12/17/16 10:21; Start 12/15/16 at 21:00 Metoclopramide HCl (Reglan) 10 mg QIDACHS IV Last administered on 12/15/16 22: 07; Start 12/15/16 at 16:30; Stop 12/16/16 at 05:43; Status DC Pantoprazole Sodium (Protonix Vial) 40 mg DAILYAC IVP Last administered on 04:46; Start 12/16/16 at 07:30 Enalaprilat (Vasotec) 2.5 mg PRN Q6HRS PRN IV HYPERTENSION, SEE COMMENTS Last administered on 12/16/16 00:32; Start 12/15/16 at 17:45 Labetalol HCl 20 mg 20 mg PRN Q6HRS PRN IVP HYPERTENSION, SEE COMMENTS Last administered on 12/15/16 20:38; Start 12/15/16 at 20:30 Sodium Chloride (Iv Sodium Chloride 0.9% 1000ml Bag) 1,000 ml @ 30 mls/hr Q24H IV ; Start 12/15/16 at 21:25; Stop 12/15/16 at 21:28; Status DC Furosemide (Lasix) 60 mg 1X ONCE IVP Last administered on 12/15/16 22:07; Start 12/15/16 at 22:00; Stop 12/15/16 at 22:01; Status DC Ondansetron HCl (Zofran Odt) 4 mg STK-MED ONCE .ROUTE ; Start 12/16/16 at 03:57 ; Stop 12/16/16 at 03:58; Status DC Metoclopramide HCl (Reglan) 10 mg STK-MED ONCE .ROUTE ; Start 12/16/16 at 03:57 ; Stop 12/16/16 at 03:58; Status DC Metoclopramide HCl (Reglan) 10 mg QIDACHS IV Last administered on 12/17/16 04: 46; Start 12/16/16 at 07:30 Potassium Chloride 40 meq 40 meq 1X ONCE PO Last administered on 12/16/16 11: 40; Start 12/16/16 at 11:00; Stop 12/16/16 at 11:03; Status DC Sodium Chloride (Iv Sodium Chloride 0.9% 1000ml Bag) 1,000 ml @ 75 mls/hr 1X ONCE IV Last administered on 12/16/16 15:09; Start 12/16/16 at 11:15; Stop 12/17/16 at 00:34; Status DC Ondansetron HCl (Zofran Odt) 4 mg STK-MED ONCE .ROUTE ; Start 12/16/16 at 15:04 ; Stop 12/16/16 at 15:05; Status DC Ondansetron HCl (Zofran Odt) 4 mg STK-MED ONCE .ROUTE ; Start 12/16/16 at 20:56 ; Stop 12/16/16 at 20:57; Status DC Ondansetron HCl (Zofran Odt) 4 mg STK-MED ONCE .ROUTE ; Start 12/17/16 at 04:37; Stop 12/17/16 at 04:38; Status DC Gabapentin (Neurontin) 300 mg STK-MED ONCE PO ; Start 12/17/16 at 07:35; Stop 12/17/16 at 07:36; Status DC Active Scripts Active Metoclopramide Hcl 5 Mg Tablet 5 Mg PO BIDAC PRN Pantoprazole Sodium 40 Mg Tablet. 40 Mg PO BIDAC [place] 5-325 Tablet (Acetaminophen/Hydrocodone Bitart) 1 Each Tablet 1 Tab PO PRN Q6HRS PRN Carafate (Sucralfate) 1 Gm Tablet 1 Tab PO QID Omeprazole 20 Mg Tablet. 20 Mg PO BID Celexa (Citalopram Hydrobromide) 10 Mg Tablet 10 Mg PO DAILY Tramadol Hcl 50 Mg Tablet 50 Mg PO PRN Q6HRS PRN Zofran Odt (Ondansetron) 4 Mg Tab.rapdis 1 Tab SL Q8HRS Reported Amlodipine Besylate 10 Mg Tablet 10 Mg PO DAILY Gabapentin 300 Mg Capsule 300 Mg PO TID Co Q-10 (Ubidecarenone) 200 Mg Capsule 200 Mg PO BID Atorvastatin Calcium 10 Mg Tablet 1 Tab PO DAILY Vitals/I & O Vital Sign - Last 24 Hours 12/16/16 12/16/16 12/16/16 12/16/16 10:36 15:00 19:00 20:00 Temp 100.0 99.5 98.4 100.0 99.5 98.4 Pulse 93 95 76 Resp 16 18 20 B/P 107/85 118/85 108/74 Pulse Ox 98 99 96 O2 Delivery Room Air Room Air Room Air Room Air 12/16/16 12/16/16 12/17/16 12/17/16 21:49 23:00 03:00 04:45 Temp 98.5 99.2 98.5 99.2 Pulse 97 78 Resp 20 18 20 20 B/P 118/67 146/77 Pulse Ox 96 95 100 O2 Delivery Room Air Room Air Room Air Room Air 12/17/16 12/17/16 12/17/16 12/17/16 05:45 07:00 09:16 09:18 Temp 98.1 98.1 Pulse 75 75 Resp 20 18 B/P 134/70 134/70 Pulse Ox 100 O2 Delivery Room Air Room Air Room Air 12/17/16 10:18 Pulse Ox 100 O2 Delivery Room Air Intake and Output 12/16/16 12/16/16 12/17/16 15:00 23:00 07:00 Intake Total 625 ml Output Total 650 ml Balance -650 ml 625 ml Problem List Problems Medical Problems: (1) Abdominal pain Status: Acute (2) Essential hypertension Status: Acute (3) Nausea & vomiting Status: Acute (4) Upper GI bleed Status: Acute Assessment GERD/gastroparesis, better. Plan of Care Note Try to transition to po PPI and prokinetic. If does OK, home soon. KATIE GOMEZ MD Dec 17, 2016 10:36
[2016-12-17 11:00] VITALS: BP 114/77
[2016-12-17] MEDS: METOCLOPRAMIDE HCL 10 MG/10 ML SOLUTION. PO SCH ×2 (11:25→16:19)
[2016-12-17] MEDS ORDERED: ONDANSETRON ODT 4 MG TAB.RAPDIS. PO SCH (14:00)
[2016-12-17 15:00] VITALS: BP 125/83
[2016-12-17] MEDS: POTASSIUM CHLORIDE 30 MEQ in IV 1/2 NORMAL SALINE 1,000 ML IV SCH ×2 (16:18→23:11)
[2016-12-17 19:32] VITALS: BP 109/73
--- NOTE | 2016-12-17 20:28 | PDOC ---
PROGRESS NOTES Chief Complaint Chief Complaint Nausea, vomiting, abdominal pain ASSESSMETN AND PLAN: 1. Gastroparesis: N/V/ abd pain resolved with restart of reglan; switch to PO bid. 2. hematemesis: prob 2/2 Loulou-Andrews tears with retching. no change in H/H 3. GERD: PPI 4. Hypokalemia: improved 5. MARAH: creat worse. IVF with K 6. Leukocytosis: resolved 7. HTN, HLD: well controlled on home regimen.. 8. DM: diet controlled 9. Dispo: recurrent admits for same clinical picture. has no funds for meds... Vitals Vitals Vital Signs Date Time Temp Pulse Resp B/P Pulse Ox O2 Delivery O2 Flow Rate FiO2 12/17/16 19:32 97.6 79 20 109/73 97 Room Air 97.6 12/17/16 17:24 99.0 Physical Exam General: Alert, Oriented X3, Cooperative, No acute distress Heart: Regular rate Lungs: Clear Abdomen: Normal bowel sounds, Soft, No tenderness Extremities: No clubbing Skin: No rashes Review of Systems Review of Systems physically ok, but anxious about getting her bills paid for fear of eviction ( first of the month) DOMENICO BLANTON MD Dec 17, 2016 20:28
[2016-12-17] MEDS: ATORVASTATIN CALCIUM 10 MG TABLET. PO SCH (20:49)
[2016-12-17 23:42] VITALS: BP 109/75
[2016-12-18 03:06] VITALS: BP 111/69
[2016-12-18] MEDS: POTASSIUM CHLORIDE 30 MEQ in IV 1/2 NORMAL SALINE 1,000 ML IV SCH ×2 (04:32→14:11)
[2016-12-18 07:00] VITALS: BP 117/76
[2016-12-18] MEDS ORDERED: METOCLOPRAMIDE HCL 10 MG/10 ML SOLUTION. PO SCH (07:30)
[2016-12-18] MEDS ORDERED: PANTOPRAZOLE 40 MG TABLET.DR. PO SCH (07:30)
[2016-12-18] MEDS: GABAPENTIN 300 MG CAPSULE. PO SCH ×2 (08:43→13:33)
[2016-12-18] MEDS: UBIDECARENONE 50 MG CAPSULE. PO SCH (08:43)
[2016-12-18] MEDS: AMLODIPINE BESYLATE 10 MG TABLET. PO SCH (08:44)
[2016-12-18] MEDS: CITALOPRAM 10 MG TABLET. PO SCH (08:44)
[2016-12-18] MEDS: HYDROCODONE/APAP 5/325MG TABLET. PO PRN (08:45)
--- NOTE | 2016-12-18 09:16 | PDOC ---
G I PROGRESS NOTE Subjective No complaints today. Tolerated transition to po meds. Physical Exam Abdomen benign. Review of Relevant I have reviewed the following items starr (where applicable) has been applied. Labs Laboratory Tests Test 12/16/16 16:35 White Blood Count 13.7x10^3/uL (4.0-11.0) Red Blood Count 5.33x10^6/uL (3.50-5.40) Hemoglobin 14.2g/dL (12.0-15.5) Hematocrit 45.1% (36.0-47.0) Mean Corpuscular Volume 85fL (79-100) Mean Corpuscular Hemoglobin 27pg (25-35) Mean Corpuscular Hemoglobin Concent 32g/dL (31-37) Red Cell Distribution Width 17.0% (11.5-14.5) Platelet Count 246x10^3/uL (140-400) Medications Current Medications Sodium Chloride (Iv Sodium Chloride 0.9% 1000ml Bag) 1,000 ml @ 1,000 mls/hr 1X ONCE IV Last administered on 12/15/16 13:10; Start 12/15/16 at 13:00; Stop 12/15/16 at 13:59; Status DC Ondansetron HCl (Zofran) 4 mg 1X ONCE IV Last administered on 12/15/16 13:08 ; Start 12/15/16 at 13:00; Stop 12/15/16 at 13:01; Status DC Fentanyl Citrate 50 mcg 50 mcg PRN Q15MIN PRN IV PAIN GREATER THAN 3/10 Last administered on 12/15/16 14:52; Start 12/15/16 at 13:00; Stop 12/16/16 at 12:59 ; Status DC Pantoprazole Sodium/Sodium Chloride (Protonix Iv/Iv Sodium Chloride 0.9% 100ml) 100 ml @ 10 mls/hr 1X ONCE IV Last administered on 12/15/16 13:54; Start at 13:30; Stop 12/15/16 at 23:29; Status DC Pantoprazole Sodium (Protonix Vial) 40 mg 1X ONCE IVP Last administered on 14:04; Start 12/15/16 at 13:30; Stop 12/15/16 at 13:31; Status DC Iohexol (Omnipaque 300 Mg/ml) 75 ml 1X ONCE IV Last administered on 12/15/16 14:06; Start 12/15/16 at 13:45; Stop 12/15/16 at 13:46; Status DC Info (Do NOT chart on this entry -- for MONITORING) 1 each PRN DAILY PRN MC SEE COMMENTS; Start 12/15/16 at 13:45; Stop 12/17/16 at 13:44; Status DC Labetalol HCl (Normodyne) 20 mg 1X ONCE IVP Last administered on 12/15/16 14: 39; Start 12/15/16 at 14:00; Stop 12/15/16 at 14:01; Status DC Labetalol HCl (Normodyne) 20 mg STK-MED ONCE .ROUTE ; Start 12/15/16 at 14:00; Stop 12/15/16 at 14:01; Status DC Ondansetron HCl (Zofran) 4 mg PRN Q8HRS PRN IV NAUSEA/VOMITING; Start 12/15/16 at 14:15; Stop 12/16/16 at 14:14; Status DC Morphine Sulfate 2 mg 2 mg PRN Q2HR PRN IV PAIN Last administered on 12/16/16 07:21; Start 12/15/16 at 14:15; Stop 12/16/16 at 14:14; Status DC Sodium Chloride (Iv Sodium Chloride 0.9% 1000ml Bag) 1,000 ml @ 100 mls/hr Q10H IV Last administered on 12/15/16 17:00; Start 12/15/16 at 14:03; Stop at 21:27; Status DC Ondansetron HCl (Zofran) 4 mg 1X ONCE IV Last administered on 12/15/16 14:09 ; Start 12/15/16 at 14:15; Stop 12/15/16 at 14:15; Status DC Amlodipine Besylate (Norvasc) 10 mg DAILY PO Last administered on 12/18/16 08: 44; Start 12/15/16 at 15:30 Atorvastatin Calcium (Lipitor) 10 mg QHS PO Last administered on 12/17/16 20:49 ; Start 12/15/16 at 21:00 Citalopram Hydrobromide (Celexa) 10 mg DAILY PO Last administered on 12/18/16 08:44; Start 12/15/16 at 15:30 Gabapentin (Neurontin) 300 mg TID PO Last administered on 12/17/16 09:16; Start 12/15/16 at 21:00; Stop 12/17/16 at 13:21; Status DC Acetaminophen/ Hydrocodone Bitart (Lortab 5/325) 1 tab PRN Q6HRS PRN PO PAIN MILD TO MOD Last administered on 12/18/16 08:45; Start 12/15/16 at 14:30 Metoclopramide HCl (Reglan) 5 mg PRN BID PRN PO NAUSEA/VOMITING; Start at 14:30; Stop 12/15/16 at 15:49; Status DC Ondansetron HCl (Zofran Odt) 4 mg Q8HRS PO Last administered on 12/17/16 04:45 ; Start 12/15/16 at 22:00; Stop 12/17/16 at 13:21; Status DC Pantoprazole Sodium (Protonix) 40 mg BIDAC PO ; Start 12/15/16 at 16:30; Stop at 16:30; Status DC Sucralfate (Carafate) 1 gm QIDACHS PO ; Start 12/15/16 at 16:30; Stop 12/15/16 at 16:30; Status DC Tramadol HCl (Ultram) 50 mg PRN Q6HRS PRN PO MODERATE PAIN Last administered on 12/17/16 16:24; Start 12/15/16 at 14:30 Non-Formulary Medication 20 mg BID PO ; Start 12/15/16 at 21:00; Status UNV Coenzyme Q10 (Coenzyme Q10) 200 mg BID PO Last administered on 12/18/16 08:43; Start 12/15/16 at 21:00 Metoclopramide HCl (Reglan) 10 mg QIDACHS IV Last administered on 12/15/16 22: 07; Start 12/15/16 at 16:30; Stop 12/16/16 at 05:43; Status DC Pantoprazole Sodium (Protonix Vial) 40 mg DAILYAC IVP Last administered on 04:46; Start 12/16/16 at 07:30; Stop 12/17/16 at 10:43; Status DC Enalaprilat (Vasotec) 2.5 mg PRN Q6HRS PRN IV HYPERTENSION, SEE COMMENTS Last administered on 12/16/16 00:32; Start 12/15/16 at 17:45 Labetalol HCl 20 mg 20 mg PRN Q6HRS PRN IVP HYPERTENSION, SEE COMMENTS Last administered on 12/15/16 20:38; Start 12/15/16 at 20:30 Sodium Chloride (Iv Sodium Chloride 0.9% 1000ml Bag) 1,000 ml @ 30 mls/hr Q24H IV ; Start 12/15/16 at 21:25; Stop 12/15/16 at 21:28; Status DC Furosemide (Lasix) 60 mg 1X ONCE IVP Last administered on 12/15/16 22:07; Start 12/15/16 at 22:00; Stop 12/15/16 at 22:01; Status DC Ondansetron HCl (Zofran Odt) 4 mg STK-MED ONCE .ROUTE ; Start 12/16/16 at 03:57 ; Stop 12/16/16 at 03:58; Status DC Metoclopramide HCl (Reglan) 10 mg STK-MED ONCE .ROUTE ; Start 12/16/16 at 03:57 ; Stop 12/16/16 at 03:58; Status DC Metoclopramide HCl (Reglan) 10 mg QIDACHS IV Last administered on 12/17/16 04: 46; Start 12/16/16 at 07:30; Stop 12/17/16 at 10:47; Status DC Potassium Chloride 40 meq 40 meq 1X ONCE PO Last administered on 12/16/16 11: 40; Start 12/16/16 at 11:00; Stop 12/16/16 at 11:03; Status DC Sodium Chloride (Iv Sodium Chloride 0.9% 1000ml Bag) 1,000 ml @ 75 mls/hr 1X ONCE IV Last administered on 12/16/16 15:09; Start 12/16/16 at 11:15; Stop 12/17/16 at 00:34; Status DC Ondansetron HCl (Zofran Odt) 4 mg STK-MED ONCE .ROUTE ; Start 12/16/16 at 15:04 ; Stop 12/16/16 at 15:05; Status DC Ondansetron HCl (Zofran Odt) 4 mg STK-MED ONCE .ROUTE ; Start 12/16/16 at 20:56 ; Stop 12/16/16 at 20:57; Status DC Ondansetron HCl (Zofran Odt) 4 mg STK-MED ONCE .ROUTE ; Start 12/17/16 at 04:37; Stop 12/17/16 at 04:38; Status DC Gabapentin (Neurontin) 300 mg STK-MED ONCE PO ; Start 12/17/16 at 07:35; Stop 12/17/16 at 07:36; Status DC Pantoprazole Sodium (Protonix) 40 mg DAILYAC PO Last administered on 12/18/16 07:33; Start 12/18/16 at 07:30 Metoclopramide HCl (Reglan) 10 mg QIDACHS PO Last administered on 12/17/16 16: 19; Start 12/17/16 at 11:30; Stop 12/17/16 at 20:26; Status DC Ondansetron HCl (Zofran Odt) 4 mg Q8HRS PO Last administered on 12/17/16 13:56 ; Start 12/17/16 at 14:00; Stop 12/17/16 at 20:26; Status DC Gabapentin 300 mg 300 mg TID PO Last administered on 12/18/16 08:43; Start 12/17 at 14:00 Potassium Chloride/Sodium Chloride (Iv Sodium Chloride 0.45%) 1,015 ml @ 150 mls/hr Q6H46M IV Last administered on 12/18/16 04:32; Start 12/17/16 at 15:00 Metoclopramide HCl (Reglan) 10 mg BIDAC PO Last administered on 12/18/16 07:33 ; Start 12/18/16 at 07:30 Active Scripts Active Metoclopramide Hcl 5 Mg Tablet 5 Mg PO BIDAC PRN Pantoprazole Sodium 40 Mg Tablet.dr 40 Mg PO BIDAC [place] 5-325 Tablet (Acetaminophen/Hydrocodone Bitart) 1 Each Tablet 1 Tab PO PRN Q6HRS PRN Carafate (Sucralfate) 1 Gm Tablet 1 Tab PO QID Omeprazole 20 Mg Tablet.dr 20 Mg PO BID Celexa (Citalopram Hydrobromide) 10 Mg Tablet 10 Mg PO DAILY Tramadol Hcl 50 Mg Tablet 50 Mg PO PRN Q6HRS PRN Zofran Odt (Ondansetron) 4 Mg Tab.rapdis 1 Tab SL Q8HRS Reported Amlodipine Besylate 10 Mg Tablet 10 Mg PO DAILY Gabapentin 300 Mg Capsule 300 Mg PO TID Co Q-10 (Ubidecarenone) 200 Mg Capsule 200 Mg PO BID Atorvastatin Calcium 10 Mg Tablet 1 Tab PO DAILY Vitals/I & O Vital Sign - Last 24 Hours 12/17/16 12/17/16 12/17/16 12/17/16 09:16 09:18 11:00 11:28 Temp 97.7 97.7 Pulse 75 72 Resp 18 B/P 134/70 114/77 Pulse Ox 99 O2 Delivery Room Air Room Air Room Air 12/17/16 12/17/16 12/17/16 12/17/16 15:00 17:24 19:32 20:00 Temp 97.9 97.6 97.9 97.6 Pulse 62 79 Resp 16 20 B/P 125/83 109/73 Pulse Ox 99 99 97 O2 Delivery Room Air Room Air Room Air Room Air O2 Flow Rate 99.0 99.0 12/17/16 12/17/16 12/17/16 12/18/16 20:52 21:52 23:42 03:06 Temp 97.6 97.8 97.6 97.8 Pulse 70 76 Resp 18 18 B/P 109/75 111/69 Pulse Ox 97 97 99 97 O2 Delivery Room Air Room Air Room Air Room Air O2 Flow Rate 99.0 99.0 12/18/16 12/18/16 12/18/16 07:00 08:44 08:45 Temp 97.6 97.6 Pulse 75 75 Resp 16 B/P 117/76 117/76 Pulse Ox 100 O2 Delivery Nasal Cannula Room Air Problem List Problems Medical Problems: (1) Abdominal pain Status: Acute (2) Essential hypertension Status: Acute (3) Nausea & vomiting Status: Acute (4) Upper GI bleed Status: Acute Assessment Improved; tolerating po meds. Plan of Care: Continue current Tx, Mgmt Plan of Care Note Home at your discretion. If has to choose re: prescriptions, told her to choose Reglan suspension and do OTC PPI. KATIE GOMEZ MD Dec 18, 2016 09:16
[2016-12-18 11:00] VITALS: BP 91/56
--- NOTE | 2016-12-18 14:11 | PDOC ---
PROGRESS NOTES Chief Complaint Chief Complaint Nausea, vomiting, abdominal pain ASSESSMENT AND PLAN: 1. Gastroparesis: N/V/ abd pain resolved with restart of reglan; switch to PO bid. 2. hematemesis: prob 2/2 Loulou-Andrews tears with retching. no change in H/H 3. GERD: PPI 4. Hypokalemia: improved 5. MARAH: resolved 6. Leukocytosis: resolved 7. HTN, HLD: well controlled on home regimen.. 8. DM: diet controlled 9. Dispo: recurrent admits for same clinical picture. has no funds for meds... Vitals Vitals Vital Signs Date Time Temp Pulse Resp B/P Pulse Ox O2 Delivery O2 Flow Rate FiO2 12/18/16 11:00 97.6 63 16 91/56 100 Room Air 97.6 12/17/16 21:52 99.0 Physical Exam General: Alert, Oriented X3, Cooperative, No acute distress Heart: Regular rate Lungs: Clear Abdomen: Normal bowel sounds, Soft, No tenderness Extremities: No clubbing Skin: No rashes Review of Systems Review of Systems doing ok today. no nausea DOMENICO BLANTON MD Dec 18, 2016 14:11
[2016-12-18 14:35] VITALS: BP 96/65
[2016-12-18 14:58] LABS: CALCIUM 8.5 mg/dL (8.5-10.1); GFR 70.5; POTASSIUM 4.3 mmol/L (3.5-5.1)
[2016-12-18] MEDS ORDERED: METO10TA PO (15:07)
--- NOTE | 2016-12-19 01:09 | DS ---
DATE OF DISCHARGE: 12/18/2016 CHIEF COMPLAINT: Nausea, vomiting, abdominal pain. HOSPITAL COURSE: The patient is a 51-year-old -[place] woman with recurrent gastroparesis causing nausea, vomiting, abdominal pain and she is unable to afford the appropriate medications. She was once again admitted to the hospital with same symptoms, was started on IV Reglan as well as Protonix with complete resolution of her symptoms. She was discharged in good condition with a script for Reglan generic as well as omeprazole. DISCHARGE DATE: 12/18/2016 DISCHARGE PHYSICAL EXAMINATION: Please refer to note from same date. DISCHARGE DIAGNOSES: Gastroparesis, gastroesophageal reflux disease. DISCHARGE DISPOSITION: To home. DISCHARGE CONDITION: Improved. DISCHARGE MEDICATIONS: Please refer to MAR. DISCHARGE INSTRUCTIONS: The patient will find PCP VIKTOR. DOMENICO BLANTON MD DR: UR/nts JOB#: [id number] / [id number]
== END 2016-12-18 15:50 | disposition home or self-care (01) | DRG 74 ==
LOC: ER 12:11 → 5 NORTH 13:40
PROVIDERS: ADMIT Internal Medicine; ATTEND Internal Medicine
DX: E11.43 Type 2 diabetes mellitus with diabetic autonomic (poly)neuropathy (principal); N17.9 Acute kidney failure, unspecified; D72.829 Elevated white blood cell count, unspecified; E78.00 Pure hypercholesterolemia, unspecified; E78.5 Hyperlipidemia, unspecified; E87.6 Hypokalemia; F32.9 Major depressive disorder, single episode, unspecified; F41.9 Anxiety disorder, unspecified; I10 Essential (primary) hypertension; K21.9 Gastro-esophageal reflux disease without esophagitis; K31.84 Gastroparesis; Z72.0 Tobacco use; Z82.49 Family history of ischemic heart disease and other diseases of the circulatory system; Z91.19 Patient's noncompliance with other medical treatment and regimen
CPT/HCPCS: 36415; 74177; 80048; 80053; 81001; 81025; 82271; 83690; 84484; 85027; 93005; 96361; 96374; 96375; 96376; C9113; J1940; J2270; J2405; J2765; J3010; J3490; J7030; J8597; Q0162; Q9967; 99285-25

== ENCOUNTER 2017-01-07 15:54 | Emergency (ER) | payer SELFPAY ==
[~2017-01-07 15:54] MED LIST changes: +METO10TA PO
[2017-01-07] MEDS ORDERED: PANTOPRAZOLE IV PUSH 40 MG VIAL. IVP ONE (16:30)
[2017-01-07] MEDS ORDERED: HALOPERIDOL LACTATE 5 MG/ML VIAL. IVP ONE (16:30)
[2017-01-07] MEDS ORDERED: IV NORMAL SALINE 1000ML BAG 1,000 ML IV SCH (16:30)
[2017-01-07] MEDS ORDERED: METOCLOPRAMIDE HCL 10 MG/2 ML VIAL. IV ONE (16:30)
[2017-01-07] MEDS ORDERED: HALOPERIDOL LACTATE 5 MG/ML VIAL. IM ONE (17:30)
[2017-01-07] MEDS ORDERED: METOCLOPRAMIDE HCL 10 MG/2 ML VIAL. IM ONE (17:30)
[2017-01-07 17:36] LABS: BASO # 0.1 x10^3/uL (0.0-0.2); BASO % 1 % (0-3); EOS % 0 % (0-3); HEMATOCRIT 40.5 % (36.0-47.0); HEMOGLOBIN 13.7 g/dL (12.0-15.5); LYMPH # 1.5 x10^3/uL (1.0-4.8); LYMPH % 18 % (24-48); MEAN CORPUSCULAR HEMOGLOBIN 28 pg (25-35); MEAN CORPUSCULAR HGB CONC 34 g/dL (31-37); MEAN CORPUSCULAR VOLUME 81 fL (79-100); MONO % 5 % (0-9); NEUT % 77 % (31-73); PLATELET COUNT 249 x10^3/uL (140-400); RED BLOOD COUNT 4.99 x10^6/uL (3.50-5.40); RED CELL DISTRIBUTION WIDTH 16.5 % (11.5-14.5); WHITE BLOOD COUNT 8.5 x10^3/uL (4.0-11.0)
[2017-01-07 17:52] LABS: ALBUMIN 4.4 g/dL (3.4-5.0); CALCIUM 9.9 mg/dL (8.5-10.1); CREATININE 0.8 mg/dL (0.6-1.0); DIRECT BILIRUBIN 0.2 mg/dL (0.0-0.2); GFR 91.1; TOTAL BILIRUBIN 0.5 mg/dL (0.2-1.0); TOTAL PROTEIN 8.9 g/dL (6.4-8.2)
[2017-01-07 17:54] LABS: POTASSIUM 2.7 mmol/L (3.5-5.1)
--- NOTE | 2017-01-07 18:03 | PHYS DOC ---
Past Medical History Past Medical History: Anxiety, Depression, GERD, High Cholesterol, Hypertension , P.U.D., URI, Other Additional Past Medical Histor: Gastroparesis Past Surgical History: Tubal ligation, Other Additional Past Surgical Histo: foot surgery, explor. adominal sx Alcohol Use: None Drug Use: None Adult General Chief Complaint Chief Complaint: ABDOMINAL PAIN HPI HPI Patient is a 51 year old female with h/o gastroparesis who presents with epigastric abdominal pain associated with nonbloody nonbilious emesis starting approximately 1 hour prior to arrival. She has severe nausea. She has burning and cramping abdominal pain. States this is exactly like prior presentations for gastroparesis symptoms. She denies dark or bloody stools, fever or chills, dysuria, back pain, chest pain, dyspnea. States she has been compliant with her home medications including metoclopramide. Review of Systems Review of Systems Constitutional: Denies fever or chills [] Eyes: Denies change in visual acuity, redness, or eye pain [] HENT: Denies nasal congestion or sore throat [] Respiratory: Denies cough or shortness of breath [] Cardiovascular: No additional information not addressed in HPI [] GI: Denies bloody stools or diarrhea [] : Denies dysuria or hematuria [] Musculoskeletal: Denies back pain or joint pain [] Integument: Denies rash or skin lesions [] Neurologic: Denies headache, focal weakness or sensory changes [] Endocrine: Denies polyuria or polydipsia [] Current Medications Current Medications Current Medications Medications (Trade) Dose Ordered Sig/[facility] Start Time Stop Time Status Last Admin Dose Admin Haloperidol Lactate (Haldol) 2 mg 1X ONCE 01/07/17 17:30 01/07/17 17:31 DC 01/07/17 17:02 2 MG Metoclopramide HCl (Reglan) 10 mg 1X ONCE 01/07/17 17:30 01/07/17 17:31 DC 01/07/17 17:03 10 MG Multi-Ingredient Mouthwash/Gargle (Gi Cocktail Single Dose) 15 ml 1X ONCE 01/07/17 18:15 01/07/17 18:16 DC 01/07/17 17:48 15 ML Ondansetron HCl (Zofran) 4 mg STK-MED ONCE 01/07/17 18:31 01/07/17 18:32 DC Pantoprazole Sodium (Protonix Vial) 40 mg 1X ONCE 01/07/17 16:30 01/07/17 16:32 DC 01/07/17 17:46 40 MG Potassium Chloride (Klor-Con) 40 meq 1X ONCE 01/07/17 18:30 01/07/17 18:31 DC 01/07/17 18:15 40 MEQ Sodium Chloride (Iv Sodium Chloride 0.9% 1000ml Bag) 1,000 ml @ 1,000 mls/hr Q1H 01/07/17 16:30 01/07/17 17:29 DC 01/07/17 17:47 1,000 MLS/HR Allergies Allergies Allergies Coded Allergies Type Severity Reaction Last Updated Verified Penicillins Allergy Intermediate 12/01/16 Yes Physical Exam Physical Exam Constitutional: Well developed, well nourished, moderate distress, non-toxic appearance. [] HENT: Normocephalic, atraumatic, bilateral external ears normal, oropharynx moist, no oral exudates, nose normal. [] Eyes: PERRLA, EOMI. [] Neck: Normal range of motion, supple. [] Cardiovascular:Heart rate regular rhythm [] Lungs & Thorax: Bilateral breath sounds clear to auscultation [] Abdomen: Bowel sounds normal, soft, no tenderness. [] Skin: Warm, dry, no erythema, no rash. [] Back: No tenderness, no CVA tenderness. [] Extremities: No tenderness, ROM intact, no edema. [] Neurologic: Alert and oriented X 3, normal motor function, normal sensory function, no focal deficits noted. [] Psychologic: Affect normal, judgement normal, mood normal. [] Current Patient Data Vital Signs Vital Signs Date Time Temp Pulse Resp B/P Pulse Ox O2 Delivery O2 Flow Rate FiO2 01/07/17 19:00 88 234/117 98 Room Air 01/07/17 18:01 22 01/07/17 16:16 97 97.0 Lab Values Laboratory Tests Test 01/07/17 17:25 White Blood Count 8.5x10^3/uL (4.0-11.0) Red Blood Count 4.99x10^6/uL (3.50-5.40) Hemoglobin 13.7g/dL (12.0-15.5) Hematocrit 40.5% (36.0-47.0) Mean Corpuscular Volume 81fL (79-100) Mean Corpuscular Hemoglobin 28pg (25-35) Mean Corpuscular Hemoglobin Concent 34g/dL (31-37) Red Cell Distribution Width 16.5% (11.5-14.5) H Platelet Count 249x10^3/uL (140-400) Neutrophils (%) (Auto) 77% (31-73) H Lymphocytes (%) (Auto) 18% (24-48) L Monocytes (%) (Auto) 5% (0-9) Eosinophils (%) (Auto) 0% (0-3) Basophils (%) (Auto) 1% (0-3) Neutrophils # (Auto) 6.5x10^3uL (1.8-7.7) Lymphocytes # (Auto) 1.5x10^3/uL (1.0-4.8) Monocytes # (Auto) 0.5x10^3/uL (0.0-1.1) Eosinophils # (Auto) 0.0x10^3/uL (0.0-0.7) Basophils # (Auto) 0.1x10^3/uL (0.0-0.2) Sodium Level 141mmol/L (136-145) Potassium Level 2.7mmol/L (3.5-5.1) *L Chloride Level 101mmol/L (98-107) Carbon Dioxide Level 25mmol/L (21-32) Anion Gap 15 (6-14) H Blood Urea Nitrogen 9mg/dL (7-20) Creatinine 0.8mg/dL (0.6-1.0) Estimated GFR (Cockcroft-Gault) 91.1 Glucose Level 153mg/dL (70-99) H Calcium Level 9.9mg/dL (8.5-10.1) Total Bilirubin 0.5mg/dL (0.2-1.0) Direct Bilirubin 0.2mg/dL (0.0-0.2) Aspartate Amino Transferase (AST) 16U/L (15-37) Alanine Aminotransferase (ALT) 17U/L (14-59) Alkaline Phosphatase 96U/L (46-116) Total Protein 8.9g/dL (6.4-8.2) H Albumin 4.4g/dL (3.4-5.0) Lipase 74U/L (73-393) Laboratory Tests 01/07/17 17:25 Laboratory Tests 01/07/17 17:25 Course & Med Decision Making Course & Med Decision Making Pertinent Labs and Imaging studies reviewed. (See chart for details) Laboratory evaluation reveals hypokalemia, otherwise is largely unremarkable. Her symptoms are controlled after medications and she is tolerating oral intake. Will give prescription for Zofran for breakthrough nausea and vomiting. Encouraged adherence to outpatient medications and to follow-up with her primary care doctor closely. Return precautions given. She understands plan. Dragon Disclaimer Dragon Disclaimer This electronic medical record was generated, in whole or in part, using a voice recognition dictation system. Departure Departure Impression: Primary Impression: Abdominal pain Additional Impressions: Gastroparesis Nausea & vomiting Disposition: HOME, SELF-CARE Condition: STABLE Referrals: NO PCP (PCP) Patient Instructions: Gastroparesis Additional Instructions: Continue your home medications; you should have metoclopramide to help with your nausea. Take zofran as needed for breakthrough nausea. Follow-up with your primary care doctor within one week. Return for any concerns. Scripts Ondansetron (Zofran Odt)4 Mg Tab.rapdis1 Tab SL Q8HRS #10 TAB Prov:Mynor ROBERTSON MD 01/07/17 Problem Qualifiers Primary Impression: Abdominal pain Abdominal location: epigastric Qualified Code: R10.13 - Epigastric pain Additional Impressions: Nausea & vomiting Vomiting type: unspecified Vomiting Intractability: non-intractable Qualified Code: R11.2 - Nausea with vomiting, unspecified Mynor ROBERTSON MD Jan 07, 2017 18:03
[2017-01-07] MEDS ORDERED: LIDO:MAALOX:DONNATAL 1:1:1 15 ML SINGLE DOSE SWSW ONE (18:15)
[2017-01-07] MEDS ORDERED: POTASSIUM CHLORIDE 20 MEQ TABLET.ER. PO ONE (18:30)
[2017-01-07] MEDS ORDERED: ONDANSETRON PF 4 MG/2 ML VIAL. ONE (18:31)
[2017-01-07] MEDS ORDERED: ONDA4TAB10 SL (18:33)
[2017-01-07] MEDS ORDERED: ONDANSETRON PF 4 MG/2 ML VIAL. IV ONE (18:45)
[2017-01-07 19:00] VITALS: BP 234/117
== END 2017-01-07 19:10 | disposition home or self-care (01) ==
LOC: ER 15:54
DX: K31.84 Gastroparesis (principal); R10.13 Epigastric pain; R11.2 Nausea with vomiting, unspecified; K21.9 Gastro-esophageal reflux disease without esophagitis; E78.00 Pure hypercholesterolemia, unspecified; I10 Essential (primary) hypertension; Z98.51 Tubal ligation status; Z98.890 Other specified postprocedural states; Z88.0 Allergy status to penicillin
CPT/HCPCS: 36415; 80048; 80076; 83690; 85027; 96361; 96372; 96374; 96375; 99284; C9113; J1630; J2405; J2765; J7030

== ENCOUNTER 2017-04-23 14:50 | Emergency (ER) | payer MEDICAID ==
[~2017-04-23 14:50] MED LIST changes: -OMEP20TA PO; +OMEP20TA8 PO; -SUCR1TAB29 PO; +SUCR1TAB35 PO; -UBID200C4 PO; +UBID200C7 PO
--- NOTE | 2017-04-23 15:19 | PHYS DOC ---
Past Medical History Past Medical History: Anxiety, Depression, GERD, High Cholesterol, Hypertension , P.U.D., URI, Other Additional Past Medical Histor: Gastroparesis Past Surgical History: Tubal ligation, Other Additional Past Surgical Histo: foot surgery, explor. adominal sx Alcohol Use: None Drug Use: None Adult General Chief Complaint Chief Complaint: HEMATEMESIS/VOMITING BLOOD HPI HPI Patient is a 52 year old female presents to the emergency department with a 5 hour history of nausea and vomiting. Patient states that yesterday she had 2 episodes of vomiting but got better so did not come to the emergency department. She does have a history of hematemesis, and began having bloody emesis today approximate 10 AM. Patient states she's apparently vomited approximately 10 times. She reports diarrhea without blood. She has diffuse abdominal pain. No headache, no lightheadedness, no chest pain, no fever. Patient reports she is taking her medicines as directed but has not taken her blood pressure medicine today. Review of Systems Review of Systems Constitutional: Denies fever or chills [] Eyes: Denies change in visual acuity, redness, or eye pain [] HENT: Denies nasal congestion or sore throat [] Respiratory: Denies cough or shortness of breath [] Cardiovascular: No additional information not addressed in HPI [] GI: Effusive abdominal pain, hematemesis, diarrhea without bloody stools : Denies dysuria or hematuria [] Musculoskeletal: Denies back pain or joint pain [] Integument: Denies rash or skin lesions [] Neurologic: Denies headache, focal weakness or sensory changes [] Endocrine: Denies polyuria or polydipsia [] Current Medications Current Medications Current Medications Medications (Trade) Dose Ordered Sig/[facility] Start Time Stop Time Status Last Admin Dose Admin Fentanyl Citrate (Fentanyl 2ml Vial) 50 mcg 1X ONCE 04/23/17 15:45 04/23/17 15:46 DC 04/23/17 15:45 50 MCG Hydralazine HCl (Apresoline) 10 mg 1X ONCE 04/23/17 15:30 04/23/17 15:31 DC 04/23/17 15:38 10 MG Hydromorphone HCl (Dilaudid) 1 mg 1X ONCE 04/23/17 16:15 04/23/17 16:18 DC 04/23/17 16:36 1 MG Ondansetron HCl (Zofran) 4 mg 1X ONCE 04/23/17 15:30 04/23/17 15:31 DC 04/23/17 15:34 4 MG Sodium Chloride 1,000 ml @ 1,000 mls/hr 1X ONCE 04/23/17 15:30 04/23/17 16:29 DC 04/23/17 15:38 1,000 MLS/HR Allergies Allergies Allergies Coded Allergies Type Severity Reaction Last Updated Verified Penicillins Allergy Intermediate 12/01/16 Yes Physical Exam Physical Exam Constitutional: Well developed, well nourished, anxious HENT: Normocephalic, atraumatic, bilateral external ears normal, oropharynx moist, no oral exudates, nose normal. [] Eyes: PERRLA, EOMI, conjunctiva normal, sclera nonicteric, no discharge. [] Neck: Normal range of motion, no tenderness, supple, no stridor. [] Cardiovascular:Heart rate regular rhythm, no murmur [] Lungs & Thorax: Bilateral breath sounds clear to auscultation [] Abdomen: Bowel sounds normal, soft, fused tenderness, no masses, no pulsatile masses. Rectal: External hemorrhoid noted. Normal sphincter tone, nontender. Small amount of brown stool noted on glove, no obvious blood. [] Skin: Warm, moist, no erythema, no rash. [] Back: No tenderness, no CVA tenderness. [] Extremities: No tenderness, no cyanosis, no clubbing, ROM intact, no edema. [] Neurologic: Alert and oriented X 3, normal motor function, normal sensory function, no focal deficits noted. [] Psychologic: Affect normal, judgement normal, mood normal. [] Current Patient Data Vital Signs Vital Signs Date Time Temp Pulse Resp B/P (MAP) Pulse Ox O2 Delivery O2 Flow Rate FiO2 04/23/17 16:36 16 04/23/17 15:38 74 220/121 04/23/17 14:58 97.3 90 97.3 Lab Values Laboratory Tests Test 04/23/17 15:15 04/23/17 15:35 04/23/17 15:39 04/23/17 16:00 Urine Collection Type Unknown Urine Color Yellow Urine Clarity Clear Urine pH 8.0 Urine Specific [place] 1.010 Urine Protein Negative mg/dL (NEG-TRACE) Urine Glucose (UA) Negative mg/dL (NEG) Urine Ketones (Stick) Trace mg/dL (NEG) Urine Blood Negative (NEG) Urine Nitrite Negative (NEG) Urine Bilirubin Negative (NEG) Urine Urobilinogen Dipstick 0.2 mg/dL (0.2 mg/dL) Urine Leukocyte Esterase Trace (NEG) Urine RBC 3-5 /HPF (0-2) Urine WBC 1-4 /HPF (0-4) Urine Squamous Epithelial Cells Few /LPF Urine Bacteria Few /HPF (0-FEW) Urine Mucus Slight /LPF White Blood Count 8.9 x10^3/uL (4.0-11.0) Red Blood Count 5.20 x10^6/uL (3.50-5.40) Hemoglobin 13.7 g/dL (12.0-15.5) Hematocrit 43.2 % (36.0-47.0) Mean Corpuscular Volume 83 fL (79-100) Mean Corpuscular Hemoglobin 26 pg (25-35) Mean Corpuscular Hemoglobin Concent 32 g/dL (31-37) Red Cell Distribution Width 17.4 % (11.5-14.5) H Platelet Count 234 x10^3/uL (140-400) Neutrophils (%) (Auto) 65 % (31-73) Lymphocytes (%) (Auto) 27 % (24-48) Monocytes (%) (Auto) 7 % (0-9) Eosinophils (%) (Auto) 1 % (0-3) Basophils (%) (Auto) 1 % (0-3) Neutrophils # (Auto) 5.7 x10^3uL (1.8-7.7) Lymphocytes # (Auto) 2.4 x10^3/uL (1.0-4.8) Monocytes # (Auto) 0.6 x10^3/uL (0.0-1.1) Eosinophils # (Auto) 0.0 x10^3/uL (0.0-0.7) Basophils # (Auto) 0.1 x10^3/uL (0.0-0.2) Prothrombin Time 13.9 SEC (11.7-14.0) Prothrombin Time INR 1.1 (0.8-1.1) PTT 31 SEC (24-38) Stool Occult Blood Negative (NEG) Sodium Level 140 mmol/L (136-145) Potassium Level 3.3 mmol/L (3.5-5.1) L Chloride Level 105 mmol/L (98-107) Carbon Dioxide Level 21 mmol/L (21-32) Anion Gap 14 (6-14) Blood Urea Nitrogen 8 mg/dL (7-20) Creatinine 0.9 mg/dL (0.6-1.0) Estimated GFR (Cockcroft-Gault) 79.3 BUN/Creatinine Ratio 9 (6-20) Glucose Level 127 mg/dL (70-99) H Calcium Level 9.5 mg/dL (8.5-10.1) Total Bilirubin 0.7 mg/dL (0.2-1.0) Aspartate Amino Transferase (AST) 20 U/L (15-37) Alanine Aminotransferase (ALT) 18 U/L (14-59) Alkaline Phosphatase 104 U/L (46-116) Total Protein 8.6 g/dL (6.4-8.2) H Albumin 3.8 g/dL (3.4-5.0) Albumin/Globulin Ratio 0.8 (1.0-1.7) L Laboratory Tests 04/23/17 15:35 Laboratory Tests 04/23/17 16:00 EKG EKG [] Radiology/Procedures Radiology/Procedures [] Course & Med Decision Making Course & Med Decision Making While in the emergency department, the patient states that she has had an emesis. What is visualized in the emesis basin and oral secretions with streaks of blood. She continually asked for IV pain medications, prior to initiation of an IV. She became upset when the nursing staff with true lab from the IV, the eye became ineffective and she had not yet received her pain medications. Pertinent Labs and Imaging studies reviewed. (See chart for details) [Differentiall diagnosis: Gastritis, gastroparesis, GI bleed, ulcer disease, abdominal pain, nausea, vomiting, viral syndrome 1700: Reevaluation, patient reports that she feels better. She's had no episodes of vomiting while in the emergency department. She has had occasional spitting with blood-tinged. Her lab is stable. She reports that she has not taken her medications as directed. She is out of Carafate at home. She will be refilled on Carafate and Zofran ODT with plan to follow-up primary care tomorrow. She is return to the emergency Department for new symptoms or concerns or worsening of current condition. Tila Disclaimer Tila Disclaimer This electronic medical record was generated, in whole or in part, using a voice recognition dictation system. Departure Departure Impression: Primary Impression: Gastroparesis Disposition: 01 HOME, SELF-CARE Condition: STABLE Referrals: UNKNOWN PCP NAME (PCP) [facility] [place] Patient Instructions: Gastroparesis Additional Instructions: Clear liquid and [place] diet, avoid alcohol, tobacco, spicy foods. Take your medications as directed. Please follow up with primary care provider tomorrow morning for further evaluation and treatment of your chronic condition. Scripts Ondansetron (ZOFRAN ODT) 4 Mg Tab.rapdis 1 TAB SL Q8HRS Y for NAUSEA, #15 TAB Prov: JUANPABLO CHAVEZ APRN 04/23/17 Sucralfate (CARAFATE) 1 Gm Tablet 1 TAB PO QID, #120 TAB 1 Refill Prov: JUANPABLO CHAVEZ APRN 04/23/17 JUANPABLO CHAVEZ APRN Apr 23, 2017 15:19
[2017-04-23] MEDS ORDERED: IV NORMAL SALINE 1000ML BAG 1,000 ML IV ONE (15:30)
[2017-04-23] MEDS ORDERED: hydrALAZINE 20 MG/ML VIAL. IVP ONE (15:30)
[2017-04-23] MEDS ORDERED: ONDANSETRON PF 4 MG/2 ML VIAL. IV ONE (15:30)
[2017-04-23 15:31] LABS: BILIRUBIN,URINE NEGATIVE (NEG); GLUCOSE,URINE NEGATIVE (NEG); NITRITE,URINE NEGATIVE (NEG); PROTEIN,URINE NEGATIVE (NEG-TRACE); UROBILINOGEN,URINE 0.2 mg/dL (0.2 mg/dL)
[2017-04-23 15:38] VITALS: BP 220/121
[2017-04-23] MEDS ORDERED: fentaNYL PF VIAL 100 MCG/2 ML VIAL IV ONE (15:45)
[2017-04-23 15:48] LABS: BASO # 0.1 x10^3/uL (0.0-0.2); BASO % 1 % (0-3); EOS % 1 % (0-3); HEMATOCRIT 43.2 % (36.0-47.0); HEMOGLOBIN 13.7 g/dL (12.0-15.5); LYMPH # 2.4 x10^3/uL (1.0-4.8); LYMPH % 27 % (24-48); MEAN CORPUSCULAR HEMOGLOBIN 26 pg (25-35); MEAN CORPUSCULAR HGB CONC 32 g/dL (31-37); MEAN CORPUSCULAR VOLUME 83 fL (79-100); MONO % 7 % (0-9); NEUT % 65 % (31-73); PLATELET COUNT 234 x10^3/uL (140-400); RED CELL DISTRIBUTION WIDTH 17.4 % (11.5-14.5); WHITE BLOOD COUNT 8.9 x10^3/uL (4.0-11.0)
[2017-04-23 15:55] LABS: BACTERIA,URINE FEW /HPF (0-FEW); SQUAMOUS EPITHELIAL CELL,UR FEW /LPF
[2017-04-23 15:56] LABS: NEG OBC FOB NEG; POS OBC FOB POS
[2017-04-23 15:58] LABS: INR 1.1 (0.8-1.1); PROTHROMBIN TIME PATIENT 13.9 SEC (11.7-14.0)
[2017-04-23] MEDS ORDERED: HYDROmorphone 2 MG/ML VIAL IV ONE (16:15)
[2017-04-23 16:30] LABS: CALCIUM 9.5 mg/dL (8.5-10.1); CREATININE 0.9 mg/dL (0.6-1.0); GFR 79.3; POTASSIUM 3.3 mmol/L (3.5-5.1)
[2017-04-23 16:35] LABS: ALBUMIN 3.8 g/dL (3.4-5.0); ALBUMIN/GLOBULIN RATIO 0.8 (1.0-1.7); TOTAL BILIRUBIN 0.7 mg/dL (0.2-1.0); TOTAL PROTEIN 8.6 g/dL (6.4-8.2)
[2017-04-23] MEDS ORDERED: ONDA4TAB10 SL (17:06)
[2017-04-23] MEDS ORDERED: SUCR1TAB35 PO (17:06)
== END 2017-04-23 17:17 | disposition home or self-care (01) ==
LOC: ER 14:50
DX: K31.84 Gastroparesis (principal); F41.9 Anxiety disorder, unspecified; F32.9 Major depressive disorder, single episode, unspecified; K21.9 Gastro-esophageal reflux disease without esophagitis; E78.00 Pure hypercholesterolemia, unspecified; I10 Essential (primary) hypertension; Z87.11 Personal history of peptic ulcer disease; Z98.51 Tubal ligation status; Z88.0 Allergy status to penicillin
CPT/HCPCS: 36415; 80053; 81001; 82274; 85027; 85610; 85730; 86850; 86900; 86901; 87086; 96361; 96374; 96375; 99284; C1887; J0360; J1170; J2405; J3010; J7030

== ENCOUNTER 2017-05-19 10:35 | Observation (INO) | payer SELFPAY ==
[2017-05-19] VITALS (9 sets, daily range): BP systolic 105–171; BP diastolic 67–96
[~2017-05-19] VITALS: Ht 170.2 cm; Wt 59.9 kg
--- NOTE | 2017-05-19 10:50 | EKG ---
[facility] [address] [place] [address] Test Date: 2017-05-19 Test Time: 10:41:31 Pat Name: DANIELA MANUEL Department: Room: Gender: F Laborer/Grade Check: : 1965 Requested By: RAGHU SEGURA Order Number: [id number] Reading MD: Chato Donnelly Measurements Intervals [place] Rate: 77 P: 37 VA: 144 QRS: 59 QRSD: 92 T: 58 QT: 410 QTc: 466 Interpretive Statements SINUS RHYTHM POSSIBLE SEPTAL INFARCT Electronically Signed On 05-23-2017 9:48:56 CDT by Chato Donnelly
[2017-05-19] MEDS ORDERED: CYCL10TA2 PO (11:14)
[2017-05-19] MEDS ORDERED: SERT100T PO (11:15)
[2017-05-19] MEDS ORDERED: PROC5TAB PO (11:15)
[2017-05-19] MEDS ORDERED: HYDR25TA PO (11:16)
[2017-05-19] MEDS ORDERED: IBUP-1060 PO (11:16)
[2017-05-19 11:43] LABS: BASO # 0.1 x10^3/uL (0.0-0.2); BASO % 1 % (0-3); EOS % 0 % (0-3); HEMATOCRIT 45.1 % (36.0-47.0); HEMOGLOBIN 14.4 g/dL (12.0-15.5); LYMPH # 1.7 x10^3/uL (1.0-4.8); LYMPH % 23 % (24-48); MEAN CORPUSCULAR HEMOGLOBIN 27 pg (25-35); MEAN CORPUSCULAR HGB CONC 32 g/dL (31-37); MEAN CORPUSCULAR VOLUME 84 fL (79-100); MONO % 5 % (0-9); NEUT % 71 % (31-73); PLATELET COUNT 234 x10^3/uL (140-400); RED BLOOD COUNT 5.39 x10^6/uL (3.50-5.40); RED CELL DISTRIBUTION WIDTH 17.7 % (11.5-14.5); WHITE BLOOD COUNT 7.8 x10^3/uL (4.0-11.0)
[2017-05-19] MEDS ORDERED: ONDANSETRON PF 4 MG/2 ML VIAL. IV ONE (11:45)
[2017-05-19] MEDS ORDERED: IV NORMAL SALINE 1000ML BAG 1,000 ML IV SCH (11:45)
[2017-05-19] MEDS: HYDROmorphone 2 MG/ML VIAL IV/SQ PRN ×2 (11:49→13:38)
--- NOTE | 2017-05-19 11:53 | RAD ---
AP portable chest radiograph 05/19/2017 Clinical History: Midsternal chest pain for 2 hours. Vomiting. An AP portable erect digital radiograph of the chest was obtained. Comparison study is dated 12/01/2016. The cardiac silhouette is normal in size. The thoracic aorta is mildly tortuous. No acute pulmonary infiltrate is seen. No pleural effusion or pneumothorax is noted. The osseous structures are grossly intact. Impression: No acute abnormality seen.
[2017-05-19] MEDS ORDERED: LABETALOL 20 MG/4 ML DISP.SYRIN. IVP ONE (12:15)
[2017-05-19 12:26] LABS: POTASSIUM ISTAT 3.3 mmol/L (3.5-5.0)
--- NOTE | 2017-05-19 12:52 | PHYS DOC ---
Past Medical History Past Medical History: Anxiety, Depression, GERD, High Cholesterol, Hypertension , P.U.D., URI, Other Additional Past Medical Histor: Gastroparesis Past Surgical History: Tubal ligation, Other Additional Past Surgical Histo: foot surgery, explor. abd sx Alcohol Use: None Drug Use: None Adult General Chief Complaint Chief Complaint: GI PROBLEM HPI HPI 52-year-old female presenting to the emergency department today with chest pain that is substernal throbbing nonradiating and severe. It was not sudden in onset. She also reports having chronic abdominal pain. She denies diaphoresis but has had nausea with vomiting. She denies any numbness weakness or tingling. She denies facial droop or slurred speech. She denies vision changes. Review of systems is negative for fevers. She denies chills confusion weakness numbness or tingling. All other review of systems is negative unless otherwise noted in history of present illness. ED course: 52-year-old female presenting to the emergency department today with chest pain. EKG obtained and reviewed by myself shows sinus rhythm with a regular rate. ST segments are congruent. Variable baseline and artifact present making interpretation difficult. Not consistent with acute coronary syndrome. chest x-ray reviewed by myself is unremarkable. No acute pathology present. No obvious pneumothorax or infiltrate. Mediastinum is within normal limits. Unfortunately were unable to get a large bore IV and subsequently were unable to do a CT angiography. Pressures obtained in all extremities which did not show any large discrepancies. Patient's pain continued and after multiple doses of IV antihypertensive medications did not respond so started on a drip for her high blood pressure. Patient was then admitted to our cardiovascular care unit with consultation with our cardiology team for her chest pain and hypertension. Dr. Almanza admitted the patient for further evaluation workup and care. Review of Systems Review of Systems SEE ABOVE. Current Medications Current Medications Current Medications Medications (Trade) Dose Ordered Sig/[facility] Start Time Stop Time Status Last Admin Dose Admin Hydralazine HCl (Apresoline) 10 mg 1X ONCE 05/19/17 13:00 05/19/17 13:01 DC 05/19/17 13:36 10 MG Hydromorphone HCl (Dilaudid) 0.5 mg PRN Q15MIN PRN 05/19/17 11:30 05/20/17 11:29 05/19/17 13:38 0.5 MG Labetalol HCl (Normodyne) 20 mg 1X ONCE 05/19/17 12:15 05/19/17 12:16 DC 05/19/17 12:16 20 MG Morphine Sulfate 2 mg PRN Q2HR PRN 05/19/17 13:00 05/20/17 12:59 Ondansetron HCl (Zofran) 4 mg PRN Q8HRS PRN 05/19/17 13:00 05/20/17 12:59 Sodium Chloride 1,000 ml @ 1,000 mls/hr Q1H 05/19/17 11:45 05/19/17 12:44 DC 05/19/17 11:44 1,000 MLS/HR Allergies Allergies Allergies Coded Allergies Type Severity Reaction Last Updated Verified Penicillins Allergy Intermediate 12/01/16 Yes Physical Exam Physical Exam SEE ABOVE Constitutional: Well developed, well nourished, no acute distress, non-toxic appearance. [] HENT: Normocephalic, atraumatic, bilateral external ears normal, oropharynx moist, no oral exudates, nose normal. [] Eyes: PERRLA, EOMI, conjunctiva normal, no discharge. Neck: Normal range of motion, no tenderness, supple, no stridor. [] Cardiovascular:Heart rate regular rhythm, no murmur Lungs & Thorax: Bilateral breath sounds clear to auscultation [] Abdomen: Bowel sounds normal, soft, no tenderness, no masses, no pulsatile masses. Skin: Warm, dry, no erythema, no rash. [] Back: No tenderness, no CVA tenderness. Extremities: No tenderness, no cyanosis, no clubbing, ROM intact, no edema. [] Neurologic: Alert and oriented X 3, normal motor function, normal sensory function, no focal deficits noted. [] Psychologic: Affect normal, judgement normal, mood normal. Current Patient Data Vital Signs Vital Signs Date Time Temp Pulse Resp B/P (MAP) Pulse Ox O2 Delivery O2 Flow Rate FiO2 05/19/17 12:55 72 232/97 (142) 100 Room Air 05/19/17 10:40 97.5 22 97.5 Lab Values Laboratory Tests Test 05/19/17 11:30 05/19/17 12:21 05/19/17 12:50 05/19/17 13:00 White Blood Count 7.8 x10^3/uL (4.0-11.0) Red Blood Count 5.39 x10^6/uL (3.50-5.40) Hemoglobin 14.4 g/dL (12.0-15.5) Hematocrit 45.1 % (36.0-47.0) Mean Corpuscular Volume 84 fL (79-100) Mean Corpuscular Hemoglobin 27 pg (25-35) Mean Corpuscular Hemoglobin Concent 32 g/dL (31-37) Red Cell Distribution Width 17.7 % (11.5-14.5) H Platelet Count 234 x10^3/uL (140-400) Neutrophils (%) (Auto) 71 % (31-73) Lymphocytes (%) (Auto) 23 % (24-48) L Monocytes (%) (Auto) 5 % (0-9) Eosinophils (%) (Auto) 0 % (0-3) Basophils (%) (Auto) 1 % (0-3) Neutrophils # (Auto) 5.5 x10^3uL (1.8-7.7) Lymphocytes # (Auto) 1.7 x10^3/uL (1.0-4.8) Monocytes # (Auto) 0.4 x10^3/uL (0.0-1.1) Eosinophils # (Auto) 0.0 x10^3/uL (0.0-0.7) Basophils # (Auto) 0.1 x10^3/uL (0.0-0.2) POC Hemoglobin 17.7 g/dL (12-15) H POC Hematocrit 52 % (36-40) H POC Sodium 141 mmol/L (135-145) POC Potassium 3.3 mmol/L (3.5-5.0) L POC Chloride 106 mmol/L (98-110) POC Total CO2 21 mmol/L (23-32) L Anion Gap 18 mmol/L (6-14) H 18 (6-14) H POC Blood Urea Nitrogen 10 mg/dL (8-26) POC Creatinine 0.6 mg/dL (0.5-1.4) Glucose Level 140 mg/dL (70-99) H 132 mg/dL (70-99) H POC Ionized Calcium (Marcello) 0.91 mmol/L (1.13-1.32) L Sodium Level 141 mmol/L (136-145) Potassium Level 3.0 mmol/L (3.5-5.1) L Chloride Level 101 mmol/L (98-107) Carbon Dioxide Level 22 mmol/L (21-32) Blood Urea Nitrogen 9 mg/dL (7-20) Creatinine 0.8 mg/dL (0.6-1.0) Estimated GFR (Cockcroft-Gault) 90.8 Calcium Level 10.3 mg/dL (8.5-10.1) H Magnesium Level 1.7 mg/dL (1.8-2.4) L Total Bilirubin 0.8 mg/dL (0.2-1.0) Direct Bilirubin 0.2 mg/dL (0.0-0.2) Aspartate Amino Transferase (AST) 19 U/L (15-37) Alanine Aminotransferase (ALT) 24 U/L (14-59) Alkaline Phosphatase 120 U/L (46-116) H Troponin I Quantitative < 0.017 ng/mL (0.000-0.055) OE-Nnz-O-Type Natriuretic Peptide 379 pg/mL (0-124) H Total Protein 9.2 g/dL (6.4-8.2) H Albumin 4.5 g/dL (3.4-5.0) Lipase 84 U/L (73-393) Urine Collection Type Unknown Urine Color Yellow Urine Clarity Clear Urine pH 8.0 Urine Specific [place] 1.010 Urine Protein Negative mg/dL (NEG-TRACE) Urine Glucose (UA) 100 mg/dL (NEG) Urine Ketones (Stick) 15 mg/dL (NEG) Urine Blood Small (NEG) Urine Nitrite Negative (NEG) Urine Bilirubin Negative (NEG) Urine Urobilinogen Dipstick 0.2 mg/dL (0.2 mg/dL) Urine Leukocyte Esterase Negative (NEG) Urine RBC 1-2 /HPF (0-2) Urine WBC Occ /HPF (0-4) Urine Squamous Epithelial Cells Occ /LPF Urine Bacteria 0 /HPF (0-FEW) Laboratory Tests 05/19/17 11:30 Laboratory Tests 05/19/17 12:21 05/19/17 12:50 EKG EKG [] Radiology/Procedures Radiology/Procedures [] Course & Med Decision Making Course & Med Decision Making Pertinent Labs and Imaging studies reviewed. (See chart for details) [] Dragon Disclaimer Dragon Disclaimer This electronic medical record was generated, in whole or in part, using a voice recognition dictation system. Departure Departure Impression: Primary Impression: Accelerated hypertension Additional Impressions: Nausea & vomiting Hypertension Disposition: 09 ADMITTED INPATIENT Admitting Physician: Christopher Almanza Condition: IMPROVED Referrals: UNKNOWN PCP NAME (PCP) KATIE GIORDANO MD Patient Instructions: Chest Pain (Nonspecific) Problem Qualifiers RAGHU SEGURA MD May 19, 2017 12:52
[2017-05-19] MEDS ORDERED: ONDANSETRON PF 4 MG/2 ML VIAL. IV PRN ×2 (13:00→14:00)
[2017-05-19] MEDS ORDERED: hydrALAZINE 20 MG/ML VIAL. IVP ONE (13:00)
[2017-05-19 13:20] LABS: ALBUMIN 4.5 g/dL (3.4-5.0); CALCIUM 10.3 mg/dL (8.5-10.1); CREATININE 0.8 mg/dL (0.6-1.0); DIRECT BILIRUBIN 0.2 mg/dL (0.0-0.2); GFR 90.8; TOTAL BILIRUBIN 0.8 mg/dL (0.2-1.0); TOTAL PROTEIN 9.2 g/dL (6.4-8.2)
--- NOTE | 2017-05-19 13:57 | PDOC1 ---
History and Physical Date of Admission Date of Admission 05/19/17 Identification/Chief Complaint Chief Complaint chest pain, abd pain Problems: Source Source: Chart review, Patient History of Present Illness History of Present Illness HPI HPI 52-year-old female presenting to the emergency department today with chest pain and abd pain. pt looks very uncomfortable, kept vomiting when i saw her in ER, with bloody emesis, not like to talk to me. She has been admitted a couple of times this year for same reason, N/V, gastroparesis and HTN urgency. She said she started to have chest pain and epigastric abd pain 2 days ago, with N/V, bloody ,denies taking NSAIDS. denies diaphoresis, sob. She said she is compliant with her HTN meds. Hb stable in ER, but BP >200. Past Medical History Cardiovascular: HTN, Hyperlipidemia Pulmonary: No pertinent hx GI: GERD, Other Hepatobiliary: No pertinent hx Psych: Anxiety, Depression Rheumatologic: Rheumatoid arthritis Infectious disease: No pertinent hx Renal/: No pertinent hx Endocrine: No pertinent hx Past Surgical History Past Surgical History : Tubal ligation, Other Additional Past Surgical Histo: foot surgery, explor. abd sx Past Surgical History: Other Family History Family History: Diabetes, Heart Disease Social History Smoke: No ALCOHOL: none Drugs: Marijuana Current Problem List Problem List Problems Medical Problems: (1) Accelerated hypertension Status: Acute (2) Nausea & vomiting Status: Acute Current Medications Current Medications Current Medications Medications (Trade) Dose Ordered Sig/Emile Start Time Stop Time Status Last Admin Dose Admin Hydralazine HCl (Apresoline) 10 mg 1X ONCE 05/19/17 13:00 05/19/17 13:01 DC 05/19/17 13:36 10 MG Hydromorphone HCl (Dilaudid) 0.5 mg PRN Q15MIN PRN 05/19/17 11:30 05/20/17 11:29 05/19/17 13:38 0.5 MG Labetalol HCl (Normodyne) 20 mg 1X ONCE 05/19/17 12:15 05/19/17 12:16 DC 05/19/17 12:16 20 MG Morphine Sulfate 2 mg PRN Q2HR PRN 05/19/17 13:00 05/20/17 12:59 Ondansetron HCl (Zofran) 4 mg PRN Q8HRS PRN 05/19/17 13:00 05/20/17 12:59 Sodium Chloride 1,000 ml @ 1,000 mls/hr Q1H 05/19/17 11:45 05/19/17 12:44 DC 05/19/17 11:44 1,000 MLS/HR Allergies Allergies Allergies Coded Allergies Type Severity Reaction Last Updated Verified Penicillins Allergy Intermediate 12/01/16 Yes ROS Review of System CONSTITUTIONAL: No fever or chills EYES: No recent changes SKIN: No rash or itching CARDIOVASCULAR: No chest pain, syncope, palpitations, or edema RESPIRATORY: No SOB or cough GASTROINTESTINAL: + nausea, vomiting or abdominal pain NEUROLOGICAL: No headaches or weakness ENDOCRINE: No cold or heat intolerance GENITOURINARY: No urgency or frequency of urination MUSCULOSKELETAL: No back pain or joint pain LYMPHATICS: No enlarged lymph nodes PSYCHIATRIC: No anxiety or depression Physical Exam Physical Exam GEN.: uncomfortable. Alert and oriented. HEENT: Head is normocephalic, atraumatic NECK: Supple. LUNGS: Clear to auscultation. HEART: RRR, S1, S2 present. Peripheral pulses intact ABDOMEN: Soft, Positive bowel sounds. lower chest wall and epigastric area has tenderness. EXTREMITIES: Without any cyanosis. NEUROLOGIC: Normal speech, normal tone PSYCHIATRIC: Normal affect, normal mood. SKIN: No ulcerations Vitals Vitals Vital Signs Date Time Temp Pulse Resp B/P (MAP) Pulse Ox O2 Delivery O2 Flow Rate FiO2 05/19/17 13:38 Room Air 05/19/17 13:36 70 216/124 05/19/17 12:55 100 05/19/17 10:40 97.5 22 97.5 Labs Labs Laboratory Tests Test 05/19/17 11:30 05/19/17 12:21 05/19/17 12:50 White Blood Count 7.8 x10^3/uL (4.0-11.0) Red Blood Count 5.39 x10^6/uL (3.50-5.40) Hemoglobin 14.4 g/dL (12.0-15.5) Hematocrit 45.1 % (36.0-47.0) Mean Corpuscular Volume 84 fL (79-100) Mean Corpuscular Hemoglobin 27 pg (25-35) Mean Corpuscular Hemoglobin Concent 32 g/dL (31-37) Red Cell Distribution Width 17.7 % (11.5-14.5) Platelet Count 234 x10^3/uL (140-400) Neutrophils (%) (Auto) 71 % (31-73) Lymphocytes (%) (Auto) 23 % (24-48) Monocytes (%) (Auto) 5 % (0-9) Eosinophils (%) (Auto) 0 % (0-3) Basophils (%) (Auto) 1 % (0-3) Neutrophils # (Auto) 5.5 x10^3uL (1.8-7.7) Lymphocytes # (Auto) 1.7 x10^3/uL (1.0-4.8) Monocytes # (Auto) 0.4 x10^3/uL (0.0-1.1) Eosinophils # (Auto) 0.0 x10^3/uL (0.0-0.7) Basophils # (Auto) 0.1 x10^3/uL (0.0-0.2) Bedside Hemoglobin 17.7 g/dL (12-15) Bedside Hematocrit 52 % (36-40) Bedside Sodium 141 mmol/L (135-145) Bedside Potassium 3.3 mmol/L (3.5-5.0) Bedside Chloride 106 mmol/L (98-110) Bedside Total CO2 21 mmol/L (23-32) Anion Gap 18 mmol/L (6-14) 18 (6-14) Bedside Blood Urea Nitrogen 10 mg/dL (8-26) Bedside Creatinine 0.6 mg/dL (0.5-1.4) Glucose Level 140 mg/dL (70-99) 132 mg/dL (70-99) Bedside Ionized Calcium (Marcello) 0.91 mmol/L (1.13-1.32) Sodium Level 141 mmol/L (136-145) Potassium Level 3.0 mmol/L (3.5-5.1) Chloride Level 101 mmol/L (98-107) Carbon Dioxide Level 22 mmol/L (21-32) Blood Urea Nitrogen 9 mg/dL (7-20) Creatinine 0.8 mg/dL (0.6-1.0) Estimated GFR (Cockcroft-Gault) 90.8 Calcium Level 10.3 mg/dL (8.5-10.1) Total Bilirubin 0.8 mg/dL (0.2-1.0) Direct Bilirubin 0.2 mg/dL (0.0-0.2) Aspartate Amino Transf (AST/SGOT) 19 U/L (15-37) Alanine Aminotransferase (ALT/SGPT) 24 U/L (14-59) Alkaline Phosphatase 120 U/L (46-116) Troponin I Quantitative < 0.017 ng/mL (0.000-0.055) Total Protein 9.2 g/dL (6.4-8.2) Albumin 4.5 g/dL (3.4-5.0) Lipase 84 U/L (73-393) Laboratory Tests Test 05/19/17 11:30 05/19/17 12:21 05/19/17 12:50 White Blood Count 7.8 x10^3/uL (4.0-11.0) Red Blood Count 5.39 x10^6/uL (3.50-5.40) Hemoglobin 14.4 g/dL (12.0-15.5) Hematocrit 45.1 % (36.0-47.0) Mean Corpuscular Volume 84 fL (79-100) Mean Corpuscular Hemoglobin 27 pg (25-35) Mean Corpuscular Hemoglobin Concent 32 g/dL (31-37) Red Cell Distribution Width 17.7 % (11.5-14.5) Platelet Count 234 x10^3/uL (140-400) Neutrophils (%) (Auto) 71 % (31-73) Lymphocytes (%) (Auto) 23 % (24-48) Monocytes (%) (Auto) 5 % (0-9) Eosinophils (%) (Auto) 0 % (0-3) Basophils (%) (Auto) 1 % (0-3) Neutrophils # (Auto) 5.5 x10^3uL (1.8-7.7) Lymphocytes # (Auto) 1.7 x10^3/uL (1.0-4.8) Monocytes # (Auto) 0.4 x10^3/uL (0.0-1.1) Eosinophils # (Auto) 0.0 x10^3/uL (0.0-0.7) Basophils # (Auto) 0.1 x10^3/uL (0.0-0.2) Bedside Hemoglobin 17.7 g/dL (12-15) Bedside Hematocrit 52 % (36-40) Bedside Sodium 141 mmol/L (135-145) Bedside Potassium 3.3 mmol/L (3.5-5.0) Bedside Chloride 106 mmol/L (98-110) Bedside Total CO2 21 mmol/L (23-32) Anion Gap 18 mmol/L (6-14) 18 (6-14) Bedside Blood Urea Nitrogen 10 mg/dL (8-26) Bedside Creatinine 0.6 mg/dL (0.5-1.4) Glucose Level 140 mg/dL (70-99) 132 mg/dL (70-99) Bedside Ionized Calcium (Marcello) 0.91 mmol/L (1.13-1.32) Sodium Level 141 mmol/L (136-145) Potassium Level 3.0 mmol/L (3.5-5.1) Chloride Level 101 mmol/L (98-107) Carbon Dioxide Level 22 mmol/L (21-32) Blood Urea Nitrogen 9 mg/dL (7-20) Creatinine 0.8 mg/dL (0.6-1.0) Estimated GFR (Cockcroft-Gault) 90.8 Calcium Level 10.3 mg/dL (8.5-10.1) Total Bilirubin 0.8 mg/dL (0.2-1.0) Direct Bilirubin 0.2 mg/dL (0.0-0.2) Aspartate Amino Transf (AST/SGOT) 19 U/L (15-37) Alanine Aminotransferase (ALT/SGPT) 24 U/L (14-59) Alkaline Phosphatase 120 U/L (46-116) Troponin I Quantitative < 0.017 ng/mL (0.000-0.055) Total Protein 9.2 g/dL (6.4-8.2) Albumin 4.5 g/dL (3.4-5.0) Lipase 84 U/L (73-393) VTE Prophylaxis Ordered VTE Prophylaxis Devices: Yes VTE Pharmacological Prophylaxi: No Assessment/Plan Assessment/Plan N/V, abd pain, hematemesis with worsening gastroparesis chest pain, atypical, 2/2 abd pain likely htn urgency hld GERD anxiety depression hypokalemia from N/V plan: gi, card consult resume some home meds need pepcid iv bid, cannot order in the computer now since pt is in ER sulcrate qid reglan iv qid npo ivf replete K check Mag labs tmr cycle CE may need cardine drip if BP still high after a couple of labetolol and hydralazine gi ppx LEONID MAXWELL MD May 19, 2017 13:57
[2017-05-19] MEDS ORDERED: MORPHINE SULFATE 2 MG/ML DISP.SYRIN. IV PRN (14:00)
[2017-05-19] MEDS ORDERED: hydrALAZINE 20 MG/ML VIAL. IVP PRN (14:00)
[2017-05-19] MEDS ORDERED: ACETAMINOPHEN 325 MG TABLET. PO PRN (14:00)
[2017-05-19] MEDS ORDERED: DOCUSATE SODIUM 100 MG CAPSULE. PO PRN (14:00)
[2017-05-19] MEDS ORDERED: HYDROcodone/APAP 5/325MG 1 TAB TABLET PO PRN (14:00)
[2017-05-19 14:11] LABS: BILIRUBIN,URINE NEGATIVE (NEG); GLUCOSE,URINE 100 mg/dL (NEG); NITRITE,URINE NEGATIVE (NEG); PROTEIN,URINE NEGATIVE (NEG-TRACE); UROBILINOGEN,URINE 0.2 mg/dL (0.2 mg/dL)
--- NOTE | 2017-05-19 14:16 | RAD ---
Exam performed :CT scan chest , abdomen and pelvis with contrast. Indication: Chest and abdominal pain Date of exam: 05/19/17.. Comparison;CT abdomen pelvis from 03/30/13 Technique: Helical sections of the chest, abdomen and pelvis were obtained without IV contrast due to lack of peripheral IV access. Sagittal and coronal reformatted images were obtained and reviewed. CT chest, abdomen and pelvis Findings : The heart, hilar and mediastinal structures appear unremarkable. Lack of IV contrast limits evaluation of neck and Intrathoracic great vessels , however they appear normal in course and caliber. Evidence of pathologic lymphadenopathy is not identified. The lungs are clear. No pleural fluid or pleural thickening is identified. No pleural calcification is noted. Structures at the thoracic inlet including both lobes of the thyroid gland appear normal. No dominant lymphadenopathy is seen in the neck or axilla. As visualized, the osseous structures appear unremarkable. Limited evaluation of the upper abdominal structures is essentially unremarkable Lack of IV contrast limits evaluation of abdominal viscera, however the liver, spleen, gallbladder and pancreas appear normal. Both adrenal glands and bilateral kidneys are normal in size. No hydronephrosis or nephrolithiasis. Small and large bowel loops are nondilated and unremarkable. Atheromatous calcification of the aorta. Urinary bladder is distended. Uterus is anteverted. No adnexal masses seen. Spondylotic changes and degenerative disc disease at L5-S1 Impression: No acute abnormality seen in the CT chest, abdomen and pelvis. Atheromatous aortic calcification without aneurysm. Due to lack of IV contrast, dissection cannot be excluded with certainty PQRS Compliance Statement: One or more of the following individualized dose reduction techniques were utilized for this examination: 1. Automated exposure control 2. Adjustment of the mA and/or kV according to patient size 3. Use of iterative reconstruction technique
--- NOTE | 2017-05-19 14:49 | PDOC2 ---
GI CONSULT Reason For Consult: Gastroparesis HPI: HPI: 52 y/o female well-known to Dr. Mccarty, recurrent admissions for n/v and abd pain. H/o gastroparesis and non-compliance w/ PPI and Reglan. Has had prior EGDs at , had H. pylori that was treated, no previous ulcer. GES abnormal here last year. Reports previous colonoscopy as normal, unclear when. No gallbladder, pancreas, or liver history. +marijuana use Came to ER w/ n/v and abd/chest pain for a couple days, noted w/ significant HTN. Planned admission, cardiology to see. In ER, history difficult. Emesis in bin looks mostly like saliva and sputum w/ reddish-orange tinge. Tells me "I 'm taking all my meds." Has plastic bag w/ pill bottles, note omeprazole, sucralfate, and ibuprofen (among others), no Reglan. Labs and CT as below, orders for IV Pepcid BID and IV Reglan QID. PMH: PMH: HTN, gastroparesis, H. pylori (treated), depression, RA, right ankle [place]IF, [place] [place] FH: Family History: CAD, DM, Hypertension Social History: Smoke: <1 pack per day ALCOHOL: none Drugs: Marijuana (although last screen negative in 03/2017) ROS: Difficult to obtain. GEN: Denies fevers HEENT: Denies blurred vision CV: +chest pain RESP: Denies shortness of air GI: Per HPI : Denies hematuria, dysuria ENDO: Denies weight changes NEURO: Denies dizziness MSK: +weakness SKIN: Denies pruritus Vitals: Vitals: Vital Signs Date Time Temp Pulse Resp B/P (MAP) Pulse Ox O2 Delivery O2 Flow Rate FiO2 05/19/17 14:16 80 211/125 (153) 100 Room Air 05/19/17 10:40 97.5 22 97.5 Labs: Labs: Laboratory Tests Test 05/19/17 11:30 05/19/17 12:21 05/19/17 12:50 White Blood Count 7.8 x10^3/uL (4.0-11.0) Red Blood Count 5.39 x10^6/uL (3.50-5.40) Hemoglobin 14.4 g/dL (12.0-15.5) Hematocrit 45.1 % (36.0-47.0) Mean Corpuscular Volume 84 fL (79-100) Mean Corpuscular Hemoglobin 27 pg (25-35) Mean Corpuscular Hemoglobin Concent 32 g/dL (31-37) Red Cell Distribution Width 17.7 % (11.5-14.5) Platelet Count 234 x10^3/uL (140-400) Neutrophils (%) (Auto) 71 % (31-73) Lymphocytes (%) (Auto) 23 % (24-48) Monocytes (%) (Auto) 5 % (0-9) Eosinophils (%) (Auto) 0 % (0-3) Basophils (%) (Auto) 1 % (0-3) Neutrophils # (Auto) 5.5 x10^3uL (1.8-7.7) Lymphocytes # (Auto) 1.7 x10^3/uL (1.0-4.8) Monocytes # (Auto) 0.4 x10^3/uL (0.0-1.1) Eosinophils # (Auto) 0.0 x10^3/uL (0.0-0.7) Basophils # (Auto) 0.1 x10^3/uL (0.0-0.2) Bedside Hemoglobin 17.7 g/dL (12-15) Bedside Hematocrit 52 % (36-40) Bedside Sodium 141 mmol/L (135-145) Bedside Potassium 3.3 mmol/L (3.5-5.0) Bedside Chloride 106 mmol/L (98-110) Bedside Total CO2 21 mmol/L (23-32) Anion Gap 18 mmol/L (6-14) 18 (6-14) Bedside Blood Urea Nitrogen 10 mg/dL (8-26) Bedside Creatinine 0.6 mg/dL (0.5-1.4) Glucose Level 140 mg/dL (70-99) 132 mg/dL (70-99) Bedside Ionized Calcium (Marcello) 0.91 mmol/L (1.13-1.32) Sodium Level 141 mmol/L (136-145) Potassium Level 3.0 mmol/L (3.5-5.1) Chloride Level 101 mmol/L (98-107) Carbon Dioxide Level 22 mmol/L (21-32) Blood Urea Nitrogen 9 mg/dL (7-20) Creatinine 0.8 mg/dL (0.6-1.0) Estimated GFR (Cockcroft-Gault) 90.8 Calcium Level 10.3 mg/dL (8.5-10.1) Magnesium Level 1.7 mg/dL (1.8-2.4) Total Bilirubin 0.8 mg/dL (0.2-1.0) Direct Bilirubin 0.2 mg/dL (0.0-0.2) Aspartate Amino Transf (AST/SGOT) 19 U/L (15-37) Alanine Aminotransferase (ALT/SGPT) 24 U/L (14-59) Alkaline Phosphatase 120 U/L (46-116) Troponin I Quantitative < 0.017 ng/mL (0.000-0.055) IR-Gyj-M-Type Natriuretic Peptide 379 pg/mL (0-124) Total Protein 9.2 g/dL (6.4-8.2) Albumin 4.5 g/dL (3.4-5.0) Lipase 84 U/L (73-393) Allergies: Coded Allergies: Penicillins (Verified Allergy, Intermediate, 12/01/16) Medications: Current Medications Medications (Trade) Dose Ordered Sig/Emile Route PRN Reason Start Time Stop Time Status Last Admin Dose Admin Hydromorphone HCl (Dilaudid) 0.5 mg PRN Q15MIN PRN IV/SQ PAIN GREATER THAN 3/10 05/19/17 11:30 05/20/17 11:29 05/19/17 13:38 Sodium Chloride 1,000 ml @ 1,000 mls/hr Q1H IV 05/19/17 11:45 05/19/17 12:44 DC 05/19/17 11:44 Ondansetron HCl (Zofran) 4 mg 1X ONCE IV 05/19/17 11:45 05/19/17 11:46 DC 05/19/17 11:48 Labetalol HCl (Normodyne) 20 mg 1X ONCE IVP 05/19/17 12:15 05/19/17 12:16 DC 05/19/17 12:16 Hydralazine HCl (Apresoline) 10 mg 1X ONCE IVP 05/19/17 13:00 05/19/17 13:01 DC 05/19/17 13:36 Nicardipine HCl 50 mg/Sodium Chloride 270 ml @ 0 mls/hr CONT PRN IV SEE I/O RECORD 05/19/17 14:00 05/19/17 14:08 Imaging: Imaging: CXR 05/19/17 Impression: No acute abnormality seen. Chest/A/P CT 05/19/17 Impression: No acute abnormality seen in the CT chest, abdomen and pelvis. Atheromatous aortic calcification without aneurysm. Due to lack of IV contrast, dissection cannot be excluded with certainty. GES 12/2015 The calculated time for half gastric emptying was 2 hours 6 minutes. This is somewhat delayed. IMPRESSION: Moderate delay in gastric emptying PE: GEN: uncomfortable HEENT: Atraumatic LUNGS: CTAB HEART: RRR ABD: difficult exam, diffusely tender to light touch EXTREMITY: No edema SKIN: No rashes, no jaundice NEURO/PSYCH: drowsy A/P: A/P: HTN, uncontrolled Recurrent n/v and upper abd pain w/ gastroparesis, h/o non-compliance -red-orange tinged emesis in ER w/ normal Hgb and BUN -- GI-jensen, agree w/ IV Reglan and H2 sandra, NPO. When able to tolerate some PO, transition to Reglan suspension and PO PPI. ANDRES HOFFMAN May 19, 2017 14:49
[2017-05-19] MEDS ORDERED: hydrOXYzine 10 MG TABLET PO PRN (15:00)
[2017-05-19 15:12] LABS: BACTERIA,URINE 0 /HPF (0-FEW); SQUAMOUS EPITHELIAL CELL,UR OCC /LPF; WBC,URINE OCC /HPF (0-4)
[2017-05-19] MEDS: POTASSIUM CL 20MEQ D5-0.9%NACL 1,000 ML IV SCH (15:19)
[2017-05-19] MEDS ORDERED: MAGNESIUM SULFATE 2GM 50 ML IV ONE (15:30)
[2017-05-19] MEDS ORDERED: CITALOPRAM 10 MG TABLET. PO SCH (15:30)
[2017-05-19] MEDS: GABAPENTIN 300 MG CAPSULE. PO SCH ×2 (15:30→20:39)
[2017-05-19] MEDS: amLODIPine BESYLATE 10 MG TABLET PO SCH (15:30)
[2017-05-19] MEDS: POTASSIUM CHLORIDE 10MEQ 100 ML IV SCH ×4 (15:32→19:23)
--- NOTE | 2017-05-19 15:42 | PDOC2 ---
CARDIAC CONSULT DATE OF CONSULT Date of Consult DATE: 05/19/17 TIME: 15:34 REASON FOR CONSULT Reason for Consult: Chest Pain REFERRING PHYSICIAN Referring Physician: Dr. Vale SOURCE Source: Chart review, Patient HISTORY OF PRESENT ILLNESS HISTORY OF PRESENT ILLNESS This is a 52 yo female, with a history of recurrent nausea/vomiting and gastroparesis with medication non-compliance, who presented with complaints of nausea/vomiting, abdominal pain, and chest pain. Patient reports vomiting began around 8 am this morning. Took morning medications, but vomited shortly thereafter. Pain also began this morning. Located in central chest and upper abdomen. Describes as sharp and aching in nature. Worse with vomiting. Associated with dizziness. Denies any palpitations, diaphoresis, or SOA. Vomiting has persisted throughout the day so patient came into the ED for further evaluation and treatment. PAST MEDICAL HISTORY Past Medical History Cardiovascular: HTN, Hyperlipidemia Pulmonary: No pertinent hx GI: GERD, Other (gastroparesis ) Hepatobiliary: No pertinent hx Psych: Anxiety, Depression Rheumatologic: Rheumatoid arthritis Infectious disease: No pertinent hx ENT: No pertinent hx Renal/: No pertinent hx Endocrine: No pertinent hx Dermatology: No pertinent hx PAST SURGICAL HISTORY Past Surgical History Other (right ankle surgery) FAMILY HISTORY Family History: Diabetes, Heart Disease SOCIAL HISTORY Social History Smoke: <1 pack per day ALCOHOL: none Drugs: Marijuana Lives: with Family CURRENT MEDICATIONS CURRENT MEDICATIONS Current Medications Medications (Trade) Dose Ordered Sig/Emile Route PRN Reason Start Time Stop Time Status Last Admin Dose Admin Hydromorphone HCl (Dilaudid) 0.5 mg PRN Q15MIN PRN IV/SQ PAIN GREATER THAN 3/10 05/19/17 11:30 05/20/17 11:29 05/19/17 13:38 Sodium Chloride 1,000 ml @ 1,000 mls/hr Q1H IV 05/19/17 11:45 05/19/17 12:44 DC 05/19/17 11:44 Ondansetron HCl (Zofran) 4 mg 1X ONCE IV 05/19/17 11:45 05/19/17 11:46 DC 05/19/17 11:48 Labetalol HCl (Normodyne) 20 mg 1X ONCE IVP 05/19/17 12:15 05/19/17 12:16 DC 05/19/17 12:16 Hydralazine HCl (Apresoline) 10 mg 1X ONCE IVP 05/19/17 13:00 05/19/17 13:01 DC 05/19/17 13:36 Nicardipine HCl 50 mg/Sodium Chloride 270 ml @ 0 mls/hr CONT PRN IV SEE I/O RECORD 05/19/17 14:00 05/19/17 14:08 Potassium Chloride/Dextrose/ Sod Cl 1,000 ml @ 100 mls/hr Q10H IV 05/19/17 15:30 05/19/17 15:19 Potassium Chloride 100 ml @ 100 mls/hr Q1H IV 05/19/17 15:30 05/19/17 19:29 05/19/17 15:32 ALLERGIES ALLERGIES: Coded Allergies: Penicillins (Verified Allergy, Intermediate, 12/01/16) ROS Review of System 14 point ROS conducted with pertinent positives noted above in HPI. PHYSICAL EXAM PHYSICAL EXAM General: Alert, Oriented X3, Cooperative, No acute distress HEENT: Atraumatic, Mucous membr. moist/pink Lungs: Clear to auscultation, Normal air movement Heart: Regular rate, Normal S1, Normal S2, Other (2/6 systolic murmur tele: SR/ ST) Abdomen: No tenderness Extremities: No edema, Normal pulses Skin: No significant lesion Neuro: Normal speech, Sensation intact Psych/Mental Status: Mental status NL, Mood NL MUSCULOSKELETAL: No swelling VITALS VITALS Vital Signs Date Time Temp Pulse Resp B/P (MAP) Pulse Ox O2 Delivery O2 Flow Rate FiO2 05/19/17 14:48 107 159/109 (126) 100 Room Air 05/19/17 10:40 97.5 22 97.5 LABS Lab: Laboratory Tests Test 05/19/17 11:30 05/19/17 12:21 05/19/17 12:50 05/19/17 13:00 White Blood Count 7.8 x10^3/uL (4.0-11.0) Red Blood Count 5.39 x10^6/uL (3.50-5.40) Hemoglobin 14.4 g/dL (12.0-15.5) Hematocrit 45.1 % (36.0-47.0) Mean Corpuscular Volume 84 fL (79-100) Mean Corpuscular Hemoglobin 27 pg (25-35) Mean Corpuscular Hemoglobin Concent 32 g/dL (31-37) Red Cell Distribution Width 17.7 % (11.5-14.5) Platelet Count 234 x10^3/uL (140-400) Neutrophils (%) (Auto) 71 % (31-73) Lymphocytes (%) (Auto) 23 % (24-48) Monocytes (%) (Auto) 5 % (0-9) Eosinophils (%) (Auto) 0 % (0-3) Basophils (%) (Auto) 1 % (0-3) Neutrophils # (Auto) 5.5 x10^3uL (1.8-7.7) Lymphocytes # (Auto) 1.7 x10^3/uL (1.0-4.8) Monocytes # (Auto) 0.4 x10^3/uL (0.0-1.1) Eosinophils # (Auto) 0.0 x10^3/uL (0.0-0.7) Basophils # (Auto) 0.1 x10^3/uL (0.0-0.2) Bedside Hemoglobin 17.7 g/dL (12-15) Bedside Hematocrit 52 % (36-40) Bedside Sodium 141 mmol/L (135-145) Bedside Potassium 3.3 mmol/L (3.5-5.0) Bedside Chloride 106 mmol/L (98-110) Bedside Total CO2 21 mmol/L (23-32) Anion Gap 18 mmol/L (6-14) 18 (6-14) Bedside Blood Urea Nitrogen 10 mg/dL (8-26) Bedside Creatinine 0.6 mg/dL (0.5-1.4) Glucose Level 140 mg/dL (70-99) 132 mg/dL (70-99) Bedside Ionized Calcium (Marcello) 0.91 mmol/L (1.13-1.32) Sodium Level 141 mmol/L (136-145) Potassium Level 3.0 mmol/L (3.5-5.1) Chloride Level 101 mmol/L (98-107) Carbon Dioxide Level 22 mmol/L (21-32) Blood Urea Nitrogen 9 mg/dL (7-20) Creatinine 0.8 mg/dL (0.6-1.0) Estimated GFR (Cockcroft-Gault) 90.8 Calcium Level 10.3 mg/dL (8.5-10.1) Magnesium Level 1.7 mg/dL (1.8-2.4) Total Bilirubin 0.8 mg/dL (0.2-1.0) Direct Bilirubin 0.2 mg/dL (0.0-0.2) Aspartate Amino Transf (AST/SGOT) 19 U/L (15-37) Alanine Aminotransferase (ALT/SGPT) 24 U/L (14-59) Alkaline Phosphatase 120 U/L (46-116) Troponin I Quantitative < 0.017 ng/mL (0.000-0.055) BW-Mls-F-Type Natriuretic Peptide 379 pg/mL (0-124) Total Protein 9.2 g/dL (6.4-8.2) Albumin 4.5 g/dL (3.4-5.0) Lipase 84 U/L (73-393) Urine Collection Type Unknown Urine Color Yellow Urine Clarity Clear Urine pH 8.0 Urine Specific [place] 1.010 Urine Protein Negative mg/dL (NEG-TRACE) Urine Glucose (UA) 100 mg/dL (NEG) Urine Ketones (Stick) 15 mg/dL (NEG) Urine Blood Small (NEG) Urine Nitrite Negative (NEG) Urine Bilirubin Negative (NEG) Urine Urobilinogen Dipstick 0.2 mg/dL (0.2 mg/dL) Urine Leukocyte Esterase Negative (NEG) Urine RBC 1-2 /HPF (0-2) Urine WBC Occ /HPF (0-4) Urine Squamous Epithelial Cells Occ /LPF Urine Bacteria 0 /HPF (0-FEW) ECHOCARDIOGRAM ECHOCARDIOGRAM <Conclusion> The left ventricular systolic function is normal and the ejection fraction is within normal range. The Ejection Fraction is >70%. There is normal LV segmental wall motion. There is an LVOT gradient measuring approximately 65 mm Hg, likely due to systolic anterior motion of the mitral valve. Etiology is unclear as no clear HOCM is noted. Consider further evaluation with CAIN or MRI. DATE: 04/06/17 1795 ASSESSMENT/PLAN ASSESSMENT/PLAN 1. Malignant hypertension; POA. Likely due to combination of persistent vomiting and missed antiHTN therapy. Cardene initiated. Resume home antiHTN therapy when patient is able to take oral. Monitor trend to assess need for therapy titration 2. Chest pain, atypical; initial trop negative. Continue with series. Most probable GI in nature. Recent echo with no WMA. 3. Hyperlipidemia; statin therapy. 4. Abdominal pain/ gastroparesis; IVF initiated. As per GI 5. Hypokalemia/ hypomagnesemia; replacement ongoing. monitor lytes Problems: URIEL COTO APRN May 19, 2017 15:42
[2017-05-19] MEDS ORDERED: METOCLOPRAMIDE 10 MG TABLET. PO SCH (16:30)
[2017-05-19] MEDS: SUCRALFATE 1 GM TABLET. PO SCH ×2 (17:00→20:39)
[2017-05-19] MEDS: METOCLOPRAMIDE HCL 10 MG/2 ML VIAL. IV SCH ×2 (17:01→17:40)
[2017-05-19] MEDS: MORPHINE SULFATE 2 MG/ML DISP.SYRIN. IV PRN ×3 (18:28→22:32)
[2017-05-19] MEDS: traMADol 50 MG TABLET PO PRN (19:24)
[2017-05-19] MEDS: FAMOTIDINE 20 MG/2 ML VIAL IVP SCH (20:39)
[2017-05-19] MEDS ORDERED: ATORVASTATIN CALCIUM 10 MG TABLET. PO SCH (21:00)
[2017-05-19] MEDS ORDERED: CYCLOBENZAPRINE 10 MG TABLET. PO SCH (21:00)
[2017-05-19] MEDS ORDERED: FAMOTIDINE 20 MG/2 ML VIAL IVP SCH (21:00)
[2017-05-20] VITALS (11 sets, daily range): BP systolic 111–151; BP diastolic 65–95
[2017-05-20] MEDS: METOCLOPRAMIDE HCL 10 MG/2 ML VIAL. IV SCH ×2 (00:26→05:46)
[2017-05-20] MEDS: MORPHINE SULFATE 2 MG/ML DISP.SYRIN. IV PRN ×3 (00:27→09:48)
[2017-05-20 01:54] LABS: BASO # 0.1 x10^3/uL (0.0-0.2); BASO % 0 % (0-3); EOS % 0 % (0-3); HEMATOCRIT 46.3 % (36.0-47.0); HEMOGLOBIN 14.8 g/dL (12.0-15.5); LYMPH # 2.2 x10^3/uL (1.0-4.8); LYMPH % 13 % (24-48); MEAN CORPUSCULAR HEMOGLOBIN 27 pg (25-35); MEAN CORPUSCULAR HGB CONC 32 g/dL (31-37); MEAN CORPUSCULAR VOLUME 84 fL (79-100); MONO % 7 % (0-9); NEUT % 81 % (31-73); PLATELET COUNT 213 x10^3/uL (140-400); RED BLOOD COUNT 5.54 x10^6/uL (3.50-5.40); RED CELL DISTRIBUTION WIDTH 17.8 % (11.5-14.5); WHITE BLOOD COUNT 18.1 x10^3/uL (4.0-11.0)
[2017-05-20 01:58] LABS: CALCIUM 9.1 mg/dL (8.5-10.1); CREATININE 0.8 mg/dL (0.6-1.0); GFR 90.8; POTASSIUM 3.4 mmol/L (3.5-5.1)
[2017-05-20] MEDS: POTASSIUM CL 20MEQ D5-0.9%NACL 1,000 ML IV SCH (05:46)
[2017-05-20] MEDS ORDERED: SERTRALINE 50 MG TABLET. PO SCH (09:00)
[2017-05-20] MEDS: traMADol 50 MG TABLET PO PRN (09:47)
[2017-05-20] MEDS: FAMOTIDINE 20 MG/2 ML VIAL IVP SCH (09:47)
[2017-05-20] MEDS: amLODIPine BESYLATE 10 MG TABLET PO SCH (09:47)
[2017-05-20] MEDS: GABAPENTIN 300 MG CAPSULE. PO SCH (09:47)
[2017-05-20] MEDS: SUCRALFATE 1 GM TABLET. PO SCH (09:47)
--- NOTE | 2017-05-20 10:43 | PDOC ---
PROGRESS NOTES Subjective Subjective Feeling much better today. Objective Objective Vital Signs Date Time Temp Pulse Resp B/P (MAP) Pulse Ox O2 Delivery O2 Flow Rate FiO2 05/20/17 09:48 23 99 Room Air 05/20/17 09:47 100 143/85 05/20/17 04:00 98.4 98.4 Physical Exam Abdomen: Soft, No tenderness Heart: Regular rate Extremities: No edema General: Alert, No acute distress Lungs: Normal air movement MUSCULOSKELETAL: No swelling Neck: Supple Psych/Mental Status: Mood NL Assessment Assessment 1. Malignant hypertension;Likely due to combination of persistent vomiting and missed antiHTN therapy. Blood pressure much better controlled since admission and she is presently off Cardene drip. Continue current medical regimen. 2. Chest pain, atypical; myocardial infarction ruled out. Most probable GI in nature. Recent echo with no WMA. 3. Hyperlipidemia; statin therapy. 4. Hypokalemia/ hypomagnesemia; replaced Plan Plan of Care Problems Medical Problems: (1) Accelerated hypertension Status: Acute (2) Hypertension Status: Acute (3) Nausea & vomiting Status: Acute Comment Review of Relevant I have reviewed the following items starr (where applicable) has been applied. Labs Laboratory Tests Test 05/19/17 11:30 05/19/17 12:21 05/19/17 12:50 05/19/17 13:00 White Blood Count 7.8 x10^3/uL (4.0-11.0) Red Blood Count 5.39 x10^6/uL (3.50-5.40) Hemoglobin 14.4 g/dL (12.0-15.5) Hematocrit 45.1 % (36.0-47.0) Mean Corpuscular Volume 84 fL (79-100) Mean Corpuscular Hemoglobin 27 pg (25-35) Mean Corpuscular Hemoglobin Concent 32 g/dL (31-37) Red Cell Distribution Width 17.7 % (11.5-14.5) Platelet Count 234 x10^3/uL (140-400) Neutrophils (%) (Auto) 71 % (31-73) Lymphocytes (%) (Auto) 23 % (24-48) Monocytes (%) (Auto) 5 % (0-9) Eosinophils (%) (Auto) 0 % (0-3) Basophils (%) (Auto) 1 % (0-3) Neutrophils # (Auto) 5.5 x10^3uL (1.8-7.7) Lymphocytes # (Auto) 1.7 x10^3/uL (1.0-4.8) Monocytes # (Auto) 0.4 x10^3/uL (0.0-1.1) Eosinophils # (Auto) 0.0 x10^3/uL (0.0-0.7) Basophils # (Auto) 0.1 x10^3/uL (0.0-0.2) Bedside Hemoglobin 17.7 g/dL (12-15) Bedside Hematocrit 52 % (36-40) Bedside Sodium 141 mmol/L (135-145) Bedside Potassium 3.3 mmol/L (3.5-5.0) Bedside Chloride 106 mmol/L (98-110) Bedside Total CO2 21 mmol/L (23-32) Anion Gap 18 mmol/L (6-14) 18 (6-14) Bedside Blood Urea Nitrogen 10 mg/dL (8-26) Bedside Creatinine 0.6 mg/dL (0.5-1.4) Glucose Level 140 mg/dL (70-99) 132 mg/dL (70-99) Bedside Ionized Calcium (Marcello) 0.91 mmol/L (1.13-1.32) Sodium Level 141 mmol/L (136-145) Potassium Level 3.0 mmol/L (3.5-5.1) Chloride Level 101 mmol/L (98-107) Carbon Dioxide Level 22 mmol/L (21-32) Blood Urea Nitrogen 9 mg/dL (7-20) Creatinine 0.8 mg/dL (0.6-1.0) Estimated GFR (Cockcroft-Gault) 90.8 Calcium Level 10.3 mg/dL (8.5-10.1) Magnesium Level 1.7 mg/dL (1.8-2.4) Total Bilirubin 0.8 mg/dL (0.2-1.0) Direct Bilirubin 0.2 mg/dL (0.0-0.2) Aspartate Amino Transf (AST/SGOT) 19 U/L (15-37) Alanine Aminotransferase (ALT/SGPT) 24 U/L (14-59) Alkaline Phosphatase 120 U/L (46-116) Troponin I Quantitative < 0.017 ng/mL (0.000-0.055) DO-Ofr-Q-Type Natriuretic Peptide 379 pg/mL (0-124) Total Protein 9.2 g/dL (6.4-8.2) Albumin 4.5 g/dL (3.4-5.0) Lipase 84 U/L (73-393) Urine Collection Type Unknown Urine Color Yellow Urine Clarity Clear Urine pH 8.0 Urine Specific [place] 1.010 Urine Protein Negative mg/dL (NEG-TRACE) Urine Glucose (UA) 100 mg/dL (NEG) Urine Ketones (Stick) 15 mg/dL (NEG) Urine Blood Small (NEG) Urine Nitrite Negative (NEG) Urine Bilirubin Negative (NEG) Urine Urobilinogen Dipstick 0.2 mg/dL (0.2 mg/dL) Urine Leukocyte Esterase Negative (NEG) Urine RBC 1-2 /HPF (0-2) Urine WBC Occ /HPF (0-4) Urine Squamous Epithelial Cells Occ /LPF Urine Bacteria 0 /HPF (0-FEW) Test 05/19/17 16:00 05/19/17 19:15 05/20/17 01:03 05/20/17 01:13 Nasal Screen MRSA (PCR) Negative (Negative) Troponin I Quantitative < 0.017 ng/mL (0.000-0.055) < 0.017 ng/mL (0.000-0.055) Magnesium Level 2.6 mg/dL (1.8-2.4) White Blood Count 18.1 x10^3/uL (4.0-11.0) Red Blood Count 5.54 x10^6/uL (3.50-5.40) Hemoglobin 14.8 g/dL (12.0-15.5) Hematocrit 46.3 % (36.0-47.0) Mean Corpuscular Volume 84 fL (79-100) Mean Corpuscular Hemoglobin 27 pg (25-35) Mean Corpuscular Hemoglobin Concent 32 g/dL (31-37) Red Cell Distribution Width 17.8 % (11.5-14.5) Platelet Count 213 x10^3/uL (140-400) Neutrophils (%) (Auto) 81 % (31-73) Lymphocytes (%) (Auto) 13 % (24-48) Monocytes (%) (Auto) 7 % (0-9) Eosinophils (%) (Auto) 0 % (0-3) Basophils (%) (Auto) 0 % (0-3) Neutrophils # (Auto) 14.5 x10^3uL (1.8-7.7) Lymphocytes # (Auto) 2.2 x10^3/uL (1.0-4.8) Monocytes # (Auto) 1.2 x10^3/uL (0.0-1.1) Eosinophils # (Auto) 0.0 x10^3/uL (0.0-0.7) Basophils # (Auto) 0.1 x10^3/uL (0.0-0.2) Sodium Level 137 mmol/L (136-145) Potassium Level 3.4 mmol/L (3.5-5.1) Chloride Level 101 mmol/L (98-107) Carbon Dioxide Level 23 mmol/L (21-32) Anion Gap 13 (6-14) Blood Urea Nitrogen 9 mg/dL (7-20) Creatinine 0.8 mg/dL (0.6-1.0) Estimated GFR (Cockcroft-Gault) 90.8 Glucose Level 132 mg/dL (70-99) Calcium Level 9.1 mg/dL (8.5-10.1) Medications Current Medications Acetaminophen (Tylenol) 650 mg PRN Q6HRS PRN PO FEVER; Start 05/19/17 at 14:00 Acetaminophen/ Hydrocodone Bitart (Lortab 5/325) 1 tab PRN Q6HRS PRN PO PAIN; Start 05/19/17 at 14:00; Status Cancel Amlodipine Besylate (Norvasc) 10 mg DAILY PO Last administered on 05/20/17 09: 47; Start 05/19/17 at 15:30 Atorvastatin Calcium (Lipitor) 10 mg QHS PO Last administered on 05/19/17 20:39 ; Start 05/19/17 at 21:00 Citalopram Hydrobromide (CeleXA) 10 mg DAILY PO ; Start 05/19/17 at 15:30; Status Cancel Cyclobenzaprine HCl (Flexeril) 10 mg QHS PO Last administered on 05/19/17 20:39 ; Start 05/19/17 at 21:00 Docusate Sodium (Colace) 100 mg PRN DAILY PRN PO CONSTIPATION; Start 05/19/17 at 14:00 Famotidine (Pepcid) 20 mg BID IVP Last administered on 05/20/17 09:47; Start at 21:00 Famotidine (Pepcid) 20 mg BID IVP ; Start 05/19/17 at 21:00; Status UNV Gabapentin (Neurontin) 300 mg TID PO Last administered on 05/20/17 09:47; Start 05/19/17 at 15:30 Hydralazine HCl (Apresoline) 10 mg 1X ONCE IVP Last administered on 05/19/17 13:36; Start 05/19/17 at 13:00; Stop 05/19/17 at 13:01; Status DC Hydralazine HCl (Apresoline) 10 mg PRN Q4HRS PRN IVP ELEVATED BP, SEE COMMENTS Last administered on 05/20/17 00:26; Start 05/19/17 at 14:00 Hydromorphone HCl (Dilaudid) 0.5 mg PRN Q15MIN PRN IV/SQ PAIN GREATER THAN 3/ 10 Last administered on 05/19/17 13:38; Start 05/19/17 at 11:30; Stop 05/20/17 at 11:29 Hydroxyzine HCl (Atarax) 50 mg PRN Q6HRS PRN PO ITCHING; Start 05/19/17 at 15:00 Labetalol HCl (Normodyne) 20 mg 1X ONCE IVP Last administered on 05/19/17 12: 16; Start 05/19/17 at 12:15; Stop 05/19/17 at 12:16; Status DC Magnesium Sulfate/ Dextrose 50 ml @ 25 mls/hr 1X ONCE IV Last administered on 05/19/17 17:05; Start 05/19/17 at 15:30; Stop 05/19/17 at 17:29; Status DC Metoclopramide HCl (Reglan) 10 mg BIDAC PO ; Start 05/19/17 at 16:30; Stop at 16:30; Status DC Metoclopramide HCl (Reglan) 10 mg Q6HRS IV Last administered on 05/20/17 05:46 ; Start 05/19/17 at 15:30 Morphine Sulfate 2 mg PRN Q2HR PRN IV PAIN Last administered on 05/20/17 09:48 ; Start 05/19/17 at 13:00; Stop 05/20/17 at 12:59 Morphine Sulfate 2 mg PRN Q2HR PRN IV PAIN; Start 05/19/17 at 14:00; Stop at 23:30; Status DC Nicardipine HCl 50 mg/Sodium Chloride 270 ml @ 0 mls/hr CONT PRN IV SEE I/O RECORD Last administered on 05/19/17 19:23; Start 05/19/17 at 14:00 Ondansetron HCl (Zofran) 4 mg 1X ONCE IV Last administered on 05/19/17 11:48; Start 05/19/17 at 11:45; Stop 05/19/17 at 11:46; Status DC Ondansetron HCl (Zofran) 4 mg PRN Q6HRS PRN IV NAUSEA/VOMITING; Start 05/19/17 at 14:00 Ondansetron HCl (Zofran) 4 mg PRN Q8HRS PRN IV NAUSEA/VOMITING Last administered on 05/19/17 18:27; Start 05/19/17 at 13:00; Stop 05/20/17 at 12:59 Potassium Chloride/Dextrose/ Sod Cl 1,000 ml @ 100 mls/hr Q10H IV Last administered on 05/20/17 05:46; Start 05/19/17 at 15:30 Potassium Chloride 100 ml @ 100 mls/hr Q1H IV Last administered on 05/19/17 19 :23; Start 05/19/17 at 15:30; Stop 05/19/17 at 19:29; Status DC Sertraline HCl (Zoloft) 100 mg DAILY PO Last administered on 05/20/17 09:47; Start 05/20/17 at 09:00 Sodium Chloride 1,000 ml @ 1,000 mls/hr Q1H IV Last administered on 05/19/17 11:44; Start 05/19/17 at 11:45; Stop 05/19/17 at 12:44; Status DC Sucralfate (Carafate) 1 gm QID PO Last administered on 05/20/17 09:47; Start at 17:00 Tramadol HCl (Ultram) 50 mg PRN Q6HRS PRN PO PAIN Last administered on t 09:47; Start 05/19/17 at 14:00 Vitals/I & O Vital Sign - Last 24 Hours 05/19/17 05/19/17 05/19/17 05/19/17 10:53 11:41 11:49 11:56 Pulse 88 88 84 B/P (MAP) 216/113 (147) 207/113 (144) 225/108 (147) Pulse Ox 100 94 O2 Delivery Room Air Room Air Room Air 05/19/17 05/19/17 05/19/17 05/19/17 11:58 12:16 12:30 12:52 Pulse 78 75 70 68 B/P (MAP) 209/109 (142) 217/124 207/129 (155) 214/123 (153) 05/19/17 05/19/17 05/19/17 05/19/17 12:55 13:32 13:36 13:38 Pulse 72 77 70 B/P (MAP) 232/97 (142) 216/124 (154) 216/124 Pulse Ox 100 100 O2 Delivery Room Air Room Air Room Air 05/19/17 05/19/17 05/19/17 05/19/17 13:46 13:56 14:04 14:06 Pulse 73 71 83 75 B/P (MAP) 217/136 (163) 219/128 (158) 224/139 (167) 234/130 (164) Pulse Ox 100 100 O2 Delivery Room Air Room Air 05/19/17 05/19/17 05/19/17 05/19/17 14:08 14:11 14:16 14:21 Pulse 78 80 89 B/P (MAP) 215/115 (148) 211/125 (153) 180/107 (131) Pulse Ox 99 100 99 O2 Delivery Room Air Room Air Room Air Room Air 05/19/17 05/19/17 05/19/17 05/19/17 14:26 14:36 14:41 14:48 Pulse 91 96 100 107 B/P (MAP) 177/108 (131) 168/111 (130) 160/104 (122) 159/109 (126) Pulse Ox 99 99 100 O2 Delivery Room Air Room Air Room Air 05/19/17 05/19/17 05/19/17 05/19/17 15:07 15:15 16:00 17:00 Temp 98.0 98.0 Pulse 108 116 118 Resp 16 16 18 B/P (MAP) 171/96 (121) 158/93 (114) 156/93 (114) Pulse Ox 100 100 100 O2 Delivery Room Air Room Air Room Air Room Air 05/19/17 05/19/17 05/19/17 05/19/17 18:00 18:28 19:00 19:24 Pulse 126 127 Resp 18 17 24 B/P (MAP) 151/93 (112) 138/84 (102) Pulse Ox 100 100 100 O2 Delivery Room Air Room Air Room Air Room Air 05/19/17 05/19/17 05/19/17 05/19/17 20:00 20:33 20:40 21:00 Temp 97.6 97.6 Pulse 128 116 Resp 25 13 20 21 B/P (MAP) 144/81 (102) 143/83 (103) Pulse Ox 100 100 100 100 O2 Delivery Room Air Room Air Room Air Room Air 05/19/17 05/19/17 05/19/17 05/20/17 22:00 22:32 23:00 00:00 Temp 98.0 98.0 Pulse 130 115 107 Resp 22 24 21 17 B/P (MAP) 105/67 (80) 148/91 (110) 122/80 (94) Pulse Ox 100 O2 Delivery Room Air Room Air Room Air Room Air 05/20/17 05/20/17 05/20/17 05/20/17 00:26 00:27 01:00 02:00 Pulse 115 120 123 Resp 20 23 15 B/P (MAP) 122/80 148/88 (108) 142/84 (103) Pulse Ox 100 O2 Delivery Room Air Room Air Room Air 05/20/17 05/20/17 05/20/17 05/20/17 03:00 04:00 05:00 05:51 Temp 98.4 98.4 Pulse 124 124 122 Resp 19 16 19 14 B/P (MAP) 137/85 (102) 144/91 (108) 127/94 (105) Pulse Ox 100 100 O2 Delivery Room Air Room Air Room Air Room Air 05/20/17 05/20/17 05/20/17 05/20/17 06:00 06:33 07:00 09:47 Pulse 117 116 100 Resp 20 18 20 B/P (MAP) 151/93 (112) 143/85 (104) 143/85 Pulse Ox 99 98 O2 Delivery Room Air Room Air Room Air 05/20/17 05/20/17 09:47 09:48 Resp 25 23 Pulse Ox 99 99 O2 Delivery Room Air Room Air DEEDEE LIU MD May 20, 2017 10:43
[2017-05-20 12:04] LABS: BASO % 0 % (0-3); EOS % 0 % (0-3); HEMATOCRIT 43.9 % (36.0-47.0); HEMOGLOBIN 14.4 g/dL (12.0-15.5); LYMPH # 2.1 x10^3/uL (1.0-4.8); LYMPH % 16 % (24-48); MEAN CORPUSCULAR HEMOGLOBIN 27 pg (25-35); MEAN CORPUSCULAR HGB CONC 33 g/dL (31-37); MEAN CORPUSCULAR VOLUME 82 fL (79-100); MONO % 11 % (0-9); NEUT % 73 % (31-73); PLATELET COUNT 210 x10^3/uL (140-400); RED BLOOD COUNT 5.34 x10^6/uL (3.50-5.40); RED CELL DISTRIBUTION WIDTH 17.6 % (11.5-14.5); WHITE BLOOD COUNT 13.1 x10^3/uL (4.0-11.0)
--- NOTE | 2017-05-20 12:11 | PDOC ---
PROGRESS NOTES Chief Complaint Chief Complaint CC: Chest/abd pain DM HTN HLD GERD CAD Neuropathy Depression History of Present Illness History of Present Illness Pt was admitted w/bloody N/V and hypertensive urgency. Admitted twice for gastroparesis, hx of non-compliance w/home meds. No acute overnight events. Pt sitting in bed w/mild discomfort from abd pain that pt thought was from a UTI, but UA came back clean. Talked w/family in the room. Vitals Vitals Vital Signs Date Time Temp Pulse Resp B/P (MAP) Pulse Ox O2 Delivery O2 Flow Rate FiO2 05/20/17 09:48 23 99 Room Air 05/20/17 09:47 100 143/85 05/20/17 04:00 98.4 98.4 Physical Exam General: Alert, Oriented X3, Cooperative, mild distress Heart: Regular rate, No murmurs Lungs: Clear Abdomen: Normal bowel sounds, No hepatosplenomegaly Extremities: No clubbing, No cyanosis Skin: No rashes, No breakdown Labs LABS Laboratory Tests Test 05/19/17 12:21 05/19/17 12:50 05/19/17 13:00 05/19/17 16:00 Bedside Hemoglobin 17.7 g/dL (12-15) Bedside Hematocrit 52 % (36-40) Bedside Sodium 141 mmol/L (135-145) Bedside Potassium 3.3 mmol/L (3.5-5.0) Bedside Chloride 106 mmol/L (98-110) Bedside Total CO2 21 mmol/L (23-32) Anion Gap 18 mmol/L (6-14) 18 (6-14) Bedside Blood Urea Nitrogen 10 mg/dL (8-26) Bedside Creatinine 0.6 mg/dL (0.5-1.4) Glucose Level 140 mg/dL (70-99) 132 mg/dL (70-99) Bedside Ionized Calcium (Marcello) 0.91 mmol/L (1.13-1.32) Sodium Level 141 mmol/L (136-145) Potassium Level 3.0 mmol/L (3.5-5.1) Chloride Level 101 mmol/L (98-107) Carbon Dioxide Level 22 mmol/L (21-32) Blood Urea Nitrogen 9 mg/dL (7-20) Creatinine 0.8 mg/dL (0.6-1.0) Estimated GFR (Cockcroft-Gault) 90.8 Calcium Level 10.3 mg/dL (8.5-10.1) Magnesium Level 1.7 mg/dL (1.8-2.4) Total Bilirubin 0.8 mg/dL (0.2-1.0) Direct Bilirubin 0.2 mg/dL (0.0-0.2) Aspartate Amino Transf (AST/SGOT) 19 U/L (15-37) Alanine Aminotransferase (ALT/SGPT) 24 U/L (14-59) Alkaline Phosphatase 120 U/L (46-116) Troponin I Quantitative < 0.017 ng/mL (0.000-0.055) MG-Ygu-Q-Type Natriuretic Peptide 379 pg/mL (0-124) Total Protein 9.2 g/dL (6.4-8.2) Albumin 4.5 g/dL (3.4-5.0) Lipase 84 U/L (73-393) Urine Collection Type Unknown Urine Color Yellow Urine Clarity Clear Urine pH 8.0 Urine Specific [place] 1.010 Urine Protein Negative mg/dL (NEG-TRACE) Urine Glucose (UA) 100 mg/dL (NEG) Urine Ketones (Stick) 15 mg/dL (NEG) Urine Blood Small (NEG) Urine Nitrite Negative (NEG) Urine Bilirubin Negative (NEG) Urine Urobilinogen Dipstick 0.2 mg/dL (0.2 mg/dL) Urine Leukocyte Esterase Negative (NEG) Urine RBC 1-2 /HPF (0-2) Urine WBC Occ /HPF (0-4) Urine Squamous Epithelial Cells Occ /LPF Urine Bacteria 0 /HPF (0-FEW) Nasal Screen MRSA (PCR) Negative (Negative) Test 05/19/17 19:15 05/20/17 01:03 05/20/17 01:13 Troponin I Quantitative < 0.017 ng/mL (0.000-0.055) < 0.017 ng/mL (0.000-0.055) Magnesium Level 2.6 mg/dL (1.8-2.4) White Blood Count 18.1 x10^3/uL (4.0-11.0) Red Blood Count 5.54 x10^6/uL (3.50-5.40) Hemoglobin 14.8 g/dL (12.0-15.5) Hematocrit 46.3 % (36.0-47.0) Mean Corpuscular Volume 84 fL (79-100) Mean Corpuscular Hemoglobin 27 pg (25-35) Mean Corpuscular Hemoglobin Concent 32 g/dL (31-37) Red Cell Distribution Width 17.8 % (11.5-14.5) Platelet Count 213 x10^3/uL (140-400) Neutrophils (%) (Auto) 81 % (31-73) Lymphocytes (%) (Auto) 13 % (24-48) Monocytes (%) (Auto) 7 % (0-9) Eosinophils (%) (Auto) 0 % (0-3) Basophils (%) (Auto) 0 % (0-3) Neutrophils # (Auto) 14.5 x10^3uL (1.8-7.7) Lymphocytes # (Auto) 2.2 x10^3/uL (1.0-4.8) Monocytes # (Auto) 1.2 x10^3/uL (0.0-1.1) Eosinophils # (Auto) 0.0 x10^3/uL (0.0-0.7) Basophils # (Auto) 0.1 x10^3/uL (0.0-0.2) Sodium Level 137 mmol/L (136-145) Potassium Level 3.4 mmol/L (3.5-5.1) Chloride Level 101 mmol/L (98-107) Carbon Dioxide Level 23 mmol/L (21-32) Anion Gap 13 (6-14) Blood Urea Nitrogen 9 mg/dL (7-20) Creatinine 0.8 mg/dL (0.6-1.0) Estimated GFR (Cockcroft-Gault) 90.8 Glucose Level 132 mg/dL (70-99) Calcium Level 9.1 mg/dL (8.5-10.1) Review of Systems Review of Systems Complains of abd pain Complains of abd cramping Assessment and Plan Assessmemt and Plan Problems Medical Problems: (1) Accelerated hypertension Status: Acute (2) Hypertension Status: Acute (3) Nausea & vomiting Status: Acute CC: Chest/abd pain: Likely sequelae from gastroparesis, negative serial troponins, negative EKG, negative CT abd/pelvis, Dr. Dee is following, appreciate the assistance Gastroparesis: Continue reglan and PPI, continue pain meds, Dr. Mccarty is following, appreciate the assistance Leukocytosis: F/U with another CBC today 05/20/17 DM: Continue [employer] meds HTN: Continue [employer] meds HLD: Continue FIL[employer] WORK[employer] meds GERD: Continue [employer] WORK[employer] meds CAD: Continue FIL[employer] WORK[employer] meds Dispo: Likely DC to home today depending on F/U CBC, pt was given abx for out- pt use if needed Problems: Comment Review of Relevant I have reviewed the following items starr (where applicable) has been applied. Labs Laboratory Tests Test 05/19/17 11:30 05/19/17 12:21 05/19/17 12:50 05/19/17 13:00 White Blood Count 7.8 x10^3/uL (4.0-11.0) Red Blood Count 5.39 x10^6/uL (3.50-5.40) Hemoglobin 14.4 g/dL (12.0-15.5) Hematocrit 45.1 % (36.0-47.0) Mean Corpuscular Volume 84 fL (79-100) Mean Corpuscular Hemoglobin 27 pg (25-35) Mean Corpuscular Hemoglobin Concent 32 g/dL (31-37) Red Cell Distribution Width 17.7 % (11.5-14.5) Platelet Count 234 x10^3/uL (140-400) Neutrophils (%) (Auto) 71 % (31-73) Lymphocytes (%) (Auto) 23 % (24-48) Monocytes (%) (Auto) 5 % (0-9) Eosinophils (%) (Auto) 0 % (0-3) Basophils (%) (Auto) 1 % (0-3) Neutrophils # (Auto) 5.5 x10^3uL (1.8-7.7) Lymphocytes # (Auto) 1.7 x10^3/uL (1.0-4.8) Monocytes # (Auto) 0.4 x10^3/uL (0.0-1.1) Eosinophils # (Auto) 0.0 x10^3/uL (0.0-0.7) Basophils # (Auto) 0.1 x10^3/uL (0.0-0.2) Bedside Hemoglobin 17.7 g/dL (12-15) Bedside Hematocrit 52 % (36-40) Bedside Sodium 141 mmol/L (135-145) Bedside Potassium 3.3 mmol/L (3.5-5.0) Bedside Chloride 106 mmol/L (98-110) Bedside Total CO2 21 mmol/L (23-32) Anion Gap 18 mmol/L (6-14) 18 (6-14) Bedside Blood Urea Nitrogen 10 mg/dL (8-26) Bedside Creatinine 0.6 mg/dL (0.5-1.4) Glucose Level 140 mg/dL (70-99) 132 mg/dL (70-99) Bedside Ionized Calcium (Marcello) 0.91 mmol/L (1.13-1.32) Sodium Level 141 mmol/L (136-145) Potassium Level 3.0 mmol/L (3.5-5.1) Chloride Level 101 mmol/L (98-107) Carbon Dioxide Level 22 mmol/L (21-32) Blood Urea Nitrogen 9 mg/dL (7-20) Creatinine 0.8 mg/dL (0.6-1.0) Estimated GFR (Cockcroft-Gault) 90.8 Calcium Level 10.3 mg/dL (8.5-10.1) Magnesium Level 1.7 mg/dL (1.8-2.4) Total Bilirubin 0.8 mg/dL (0.2-1.0) Direct Bilirubin 0.2 mg/dL (0.0-0.2) Aspartate Amino Transf (AST/SGOT) 19 U/L (15-37) Alanine Aminotransferase (ALT/SGPT) 24 U/L (14-59) Alkaline Phosphatase 120 U/L (46-116) Troponin I Quantitative < 0.017 ng/mL (0.000-0.055) TE-Cna-H-Type Natriuretic Peptide 379 pg/mL (0-124) Total Protein 9.2 g/dL (6.4-8.2) Albumin 4.5 g/dL (3.4-5.0) Lipase 84 U/L (73-393) Urine Collection Type Unknown Urine Color Yellow Urine Clarity Clear Urine pH 8.0 Urine Specific [place] 1.010 Urine Protein Negative mg/dL (NEG-TRACE) Urine Glucose (UA) 100 mg/dL (NEG) Urine Ketones (Stick) 15 mg/dL (NEG) Urine Blood Small (NEG) Urine Nitrite Negative (NEG) Urine Bilirubin Negative (NEG) Urine Urobilinogen Dipstick 0.2 mg/dL (0.2 mg/dL) Urine Leukocyte Esterase Negative (NEG) Urine RBC 1-2 /HPF (0-2) Urine WBC Occ /HPF (0-4) Urine Squamous Epithelial Cells Occ /LPF Urine Bacteria 0 /HPF (0-FEW) Test 05/19/17 16:00 05/19/17 19:15 05/20/17 01:03 05/20/17 01:13 Nasal Screen MRSA (PCR) Negative (Negative) Troponin I Quantitative < 0.017 ng/mL (0.000-0.055) < 0.017 ng/mL (0.000-0.055) Magnesium Level 2.6 mg/dL (1.8-2.4) White Blood Count 18.1 x10^3/uL (4.0-11.0) Red Blood Count 5.54 x10^6/uL (3.50-5.40) Hemoglobin 14.8 g/dL (12.0-15.5) Hematocrit 46.3 % (36.0-47.0) Mean Corpuscular Volume 84 fL (79-100) Mean Corpuscular Hemoglobin 27 pg (25-35) Mean Corpuscular Hemoglobin Concent 32 g/dL (31-37) Red Cell Distribution Width 17.8 % (11.5-14.5) Platelet Count 213 x10^3/uL (140-400) Neutrophils (%) (Auto) 81 % (31-73) Lymphocytes (%) (Auto) 13 % (24-48) Monocytes (%) (Auto) 7 % (0-9) Eosinophils (%) (Auto) 0 % (0-3) Basophils (%) (Auto) 0 % (0-3) Neutrophils # (Auto) 14.5 x10^3uL (1.8-7.7) Lymphocytes # (Auto) 2.2 x10^3/uL (1.0-4.8) Monocytes # (Auto) 1.2 x10^3/uL (0.0-1.1) Eosinophils # (Auto) 0.0 x10^3/uL (0.0-0.7) Basophils # (Auto) 0.1 x10^3/uL (0.0-0.2) Sodium Level 137 mmol/L (136-145) Potassium Level 3.4 mmol/L (3.5-5.1) Chloride Level 101 mmol/L (98-107) Carbon Dioxide Level 23 mmol/L (21-32) Anion Gap 13 (6-14) Blood Urea Nitrogen 9 mg/dL (7-20) Creatinine 0.8 mg/dL (0.6-1.0) Estimated GFR (Cockcroft-Gault) 90.8 Glucose Level 132 mg/dL (70-99) Calcium Level 9.1 mg/dL (8.5-10.1) Laboratory Tests Test 05/19/17 12:21 05/19/17 12:50 05/19/17 13:00 05/19/17 16:00 Bedside Hemoglobin 17.7 g/dL (12-15) Bedside Hematocrit 52 % (36-40) Bedside Sodium 141 mmol/L (135-145) Bedside Potassium 3.3 mmol/L (3.5-5.0) Bedside Chloride 106 mmol/L (98-110) Bedside Total CO2 21 mmol/L (23-32) Anion Gap 18 mmol/L (6-14) 18 (6-14) Bedside Blood Urea Nitrogen 10 mg/dL (8-26) Bedside Creatinine 0.6 mg/dL (0.5-1.4) Glucose Level 140 mg/dL (70-99) 132 mg/dL (70-99) Bedside Ionized Calcium (Marcello) 0.91 mmol/L (1.13-1.32) Sodium Level 141 mmol/L (136-145) Potassium Level 3.0 mmol/L (3.5-5.1) Chloride Level 101 mmol/L (98-107) Carbon Dioxide Level 22 mmol/L (21-32) Blood Urea Nitrogen 9 mg/dL (7-20) Creatinine 0.8 mg/dL (0.6-1.0) Estimated GFR (Cockcroft-Gault) 90.8 Calcium Level 10.3 mg/dL (8.5-10.1) Magnesium Level 1.7 mg/dL (1.8-2.4) Total Bilirubin 0.8 mg/dL (0.2-1.0) Direct Bilirubin 0.2 mg/dL (0.0-0.2) Aspartate Amino Transf (AST/SGOT) 19 U/L (15-37) Alanine Aminotransferase (ALT/SGPT) 24 U/L (14-59) Alkaline Phosphatase 120 U/L (46-116) Troponin I Quantitative < 0.017 ng/mL (0.000-0.055) RH-Hqh-B-Type Natriuretic Peptide 379 pg/mL (0-124) Total Protein 9.2 g/dL (6.4-8.2) Albumin 4.5 g/dL (3.4-5.0) Lipase 84 U/L (73-393) Urine Collection Type Unknown Urine Color Yellow Urine Clarity Clear Urine pH 8.0 Urine Specific [place] 1.010 Urine Protein Negative mg/dL (NEG-TRACE) Urine Glucose (UA) 100 mg/dL (NEG) Urine Ketones (Stick) 15 mg/dL (NEG) Urine Blood Small (NEG) Urine Nitrite Negative (NEG) Urine Bilirubin Negative (NEG) Urine Urobilinogen Dipstick 0.2 mg/dL (0.2 mg/dL) Urine Leukocyte Esterase Negative (NEG) Urine RBC 1-2 /HPF (0-2) Urine WBC Occ /HPF (0-4) Urine Squamous Epithelial Cells Occ /LPF Urine Bacteria 0 /HPF (0-FEW) Nasal Screen MRSA (PCR) Negative (Negative) Test 05/19/17 19:15 05/20/17 01:03 05/20/17 01:13 Troponin I Quantitative < 0.017 ng/mL (0.000-0.055) < 0.017 ng/mL (0.000-0.055) Magnesium Level 2.6 mg/dL (1.8-2.4) White Blood Count 18.1 x10^3/uL (4.0-11.0) Red Blood Count 5.54 x10^6/uL (3.50-5.40) Hemoglobin 14.8 g/dL (12.0-15.5) Hematocrit 46.3 % (36.0-47.0) Mean Corpuscular Volume 84 fL (79-100) Mean Corpuscular Hemoglobin 27 pg (25-35) Mean Corpuscular Hemoglobin Concent 32 g/dL (31-37) Red Cell Distribution Width 17.8 % (11.5-14.5) Platelet Count 213 x10^3/uL (140-400) Neutrophils (%) (Auto) 81 % (31-73) Lymphocytes (%) (Auto) 13 % (24-48) Monocytes (%) (Auto) 7 % (0-9) Eosinophils (%) (Auto) 0 % (0-3) Basophils (%) (Auto) 0 % (0-3) Neutrophils # (Auto) 14.5 x10^3uL (1.8-7.7) Lymphocytes # (Auto) 2.2 x10^3/uL (1.0-4.8) Monocytes # (Auto) 1.2 x10^3/uL (0.0-1.1) Eosinophils # (Auto) 0.0 x10^3/uL (0.0-0.7) Basophils # (Auto) 0.1 x10^3/uL (0.0-0.2) Sodium Level 137 mmol/L (136-145) Potassium Level 3.4 mmol/L (3.5-5.1) Chloride Level 101 mmol/L (98-107) Carbon Dioxide Level 23 mmol/L (21-32) Anion Gap 13 (6-14) Blood Urea Nitrogen 9 mg/dL (7-20) Creatinine 0.8 mg/dL (0.6-1.0) Estimated GFR (Cockcroft-Gault) 90.8 Glucose Level 132 mg/dL (70-99) Calcium Level 9.1 mg/dL (8.5-10.1) Medications Current Medications Hydromorphone HCl (Dilaudid) 0.5 mg PRN Q15MIN PRN IV/SQ PAIN GREATER THAN 3/ 10 Last administered on 05/19/17 13:38; Start 05/19/17 at 11:30; Stop 05/20/17 at 11:29; Status DC Sodium Chloride 1,000 ml @ 1,000 mls/hr Q1H IV Last administered on 05/19/17 11:44; Start 05/19/17 at 11:45; Stop 05/19/17 at 12:44; Status DC Ondansetron HCl (Zofran) 4 mg 1X ONCE IV Last administered on 05/19/17 11:48; Start 05/19/17 at 11:45; Stop 05/19/17 at 11:46; Status DC Labetalol HCl (Normodyne) 20 mg 1X ONCE IVP Last administered on 05/19/17 12: 16; Start 05/19/17 at 12:15; Stop 05/19/17 at 12:16; Status DC Ondansetron HCl (Zofran) 4 mg PRN Q8HRS PRN IV NAUSEA/VOMITING Last administered on 05/19/17 18:27; Start 05/19/17 at 13:00; Stop 05/20/17 at 10:42; Status DC Morphine Sulfate 2 mg PRN Q2HR PRN IV PAIN Last administered on 05/20/17 09:48 ; Start 05/19/17 at 13:00; Stop 05/20/17 at 12:59 Hydralazine HCl (Apresoline) 10 mg 1X ONCE IVP Last administered on 05/19/17 13:36; Start 05/19/17 at 13:00; Stop 05/19/17 at 13:01; Status DC Nicardipine HCl 50 mg/Sodium Chloride 270 ml @ 0 mls/hr CONT PRN IV SEE I/O RECORD Last administered on 05/19/17 19:23; Start 05/19/17 at 14:00 Amlodipine Besylate (Norvasc) 10 mg DAILY PO Last administered on 05/20/17 09: 47; Start 05/19/17 at 15:30 Atorvastatin Calcium (Lipitor) 10 mg QHS PO Last administered on 05/19/17 20:39 ; Start 05/19/17 at 21:00 Citalopram Hydrobromide (CeleXA) 10 mg DAILY PO ; Start 05/19/17 at 15:30; Status Cancel Cyclobenzaprine HCl (Flexeril) 10 mg QHS PO Last administered on 05/19/17 20:39 ; Start 05/19/17 at 21:00 Gabapentin (Neurontin) 300 mg TID PO Last administered on 05/20/17 09:47; Start 05/19/17 at 15:30 Acetaminophen/ Hydrocodone Bitart (Lortab 5/325) 1 tab PRN Q6HRS PRN PO PAIN; Start 05/19/17 at 14:00; Status Cancel Metoclopramide HCl (Reglan) 10 mg BIDAC PO ; Start 05/19/17 at 16:30; Stop at 16:30; Status DC Sucralfate (Carafate) 1 gm QID PO Last administered on 05/20/17 09:47; Start at 17:00 Hydroxyzine HCl (Atarax) 50 mg PRN Q6HRS PRN PO ITCHING; Start 05/19/17 at 15:00 Sertraline HCl (Zoloft) 100 mg DAILY PO Last administered on 05/20/17 09:47; Start 05/20/17 at 09:00 Metoclopramide HCl (Reglan) 10 mg Q6HRS IV Last administered on 05/20/17 05:46 ; Start 05/19/17 at 15:30 Potassium Chloride/Dextrose/ Sod Cl 1,000 ml @ 100 mls/hr Q10H IV Last administered on 05/20/17 05:46; Start 05/19/17 at 15:30 Potassium Chloride 100 ml @ 100 mls/hr Q1H IV Last administered on 05/19/17 19 :23; Start 05/19/17 at 15:30; Stop 05/19/17 at 19:29; Status DC Acetaminophen (Tylenol) 650 mg PRN Q6HRS PRN PO FEVER; Start 05/19/17 at 14:00 Ondansetron HCl (Zofran) 4 mg PRN Q6HRS PRN IV NAUSEA/VOMITING; Start 05/19/17 at 14:00 Morphine Sulfate 2 mg PRN Q2HR PRN IV PAIN; Start 05/19/17 at 14:00; Stop at 23:30; Status DC Tramadol HCl (Ultram) 50 mg PRN Q6HRS PRN PO PAIN Last administered on 09:47; Start 05/19/17 at 14:00 Hydralazine HCl (Apresoline) 10 mg PRN Q4HRS PRN IVP ELEVATED BP, SEE COMMENTS Last administered on 05/20/17 00:26; Start 05/19/17 at 14:00 Docusate Sodium (Colace) 100 mg PRN DAILY PRN PO CONSTIPATION; Start 05/19/17 at 14:00 Famotidine (Pepcid) 20 mg BID IVP Last administered on 05/20/17 09:47; Start at 21:00 Magnesium Sulfate/ Dextrose 50 ml @ 25 mls/hr 1X ONCE IV Last administered on 9/1/17at 17:05; Start 05/19/17 at 15:30; Stop 05/19/17 at 17:29; Status DC Famotidine (Pepcid) 20 mg BID IVP ; Start 05/19/17 at 21:00; Status UNV Active Scripts Active Carafate (Sucralfate) 1 Gm Tablet 1 Tab PO QID Omeprazole 20 Mg Tablet.dr 20 Mg PO BID Reported Ibuprofen 800 Mg Tablet 800 Mg PO PRN Q6HRS PRN Hydroxyzine Hcl 25 Mg Tablet 50 Mg PO PRN Q6HRS PRN Zoloft (Sertraline Hcl) 100 Mg Tablet 1 Tab PO DAILY Prochlorperazine Maleate 5 Mg Tablet 5 Mg PO PRN TID PRN Cyclobenzaprine Hcl 10 Mg Tablet 1 Tab PO QHS Amlodipine Besylate 10 Mg Tablet 10 Mg PO DAILY Gabapentin 300 Mg Capsule 300 Mg PO TID Atorvastatin Calcium 10 Mg Tablet 1 Tab PO DAILY Vitals/I & O Vital Sign - Last 24 Hours 05/19/17 05/19/17 05/19/17 05/19/17 11:56 11:58 12:16 12:30 Pulse 84 78 75 70 B/P (MAP) 225/108 (147) 209/109 (142) 217/124 207/129 (155) Pulse Ox 94 O2 Delivery Room Air 05/19/17 05/19/17 05/19/17 05/19/17 12:52 12:55 13:32 13:36 Pulse 68 72 77 70 B/P (MAP) 214/123 (153) 232/97 (142) 216/124 (154) 216/124 Pulse Ox 100 100 O2 Delivery Room Air Room Air 05/19/17 05/19/17 05/19/17 05/19/17 13:38 13:46 13:56 14:04 Pulse 73 71 83 B/P (MAP) 217/136 (163) 219/128 (158) 224/139 (167) Pulse Ox 100 O2 Delivery Room Air Room Air 05/19/17 05/19/17 05/19/17 05/19/17 14:06 14:08 14:11 14:16 Pulse 75 78 80 B/P (MAP) 234/130 (164) 215/115 (148) 211/125 (153) Pulse Ox 100 99 100 O2 Delivery Room Air Room Air Room Air Room Air 05/19/17 05/19/17 05/19/17 05/19/17 14:21 14:26 14:36 14:41 Pulse 89 91 96 100 B/P (MAP) 180/107 (131) 177/108 (131) 168/111 (130) 160/104 (122) Pulse Ox 99 99 99 O2 Delivery Room Air Room Air Room Air 05/19/17 05/19/17 05/19/17 05/19/17 14:48 15:07 15:15 16:00 Temp 98.0 98.0 Pulse 107 108 116 Resp 16 16 B/P (MAP) 159/109 (126) 171/96 (121) 158/93 (114) Pulse Ox 100 100 100 O2 Delivery Room Air Room Air Room Air Room Air 05/19/17 05/19/17 05/19/17 05/19/17 17:00 18:00 18:28 19:00 Pulse 118 126 127 Resp 18 18 17 B/P (MAP) 156/93 (114) 151/93 (112) 138/84 (102) Pulse Ox 100 100 100 O2 Delivery Room Air Room Air Room Air Room Air 05/19/17 05/19/17 05/19/17 05/19/17 19:24 20:00 20:33 20:40 Temp 97.6 97.6 Pulse 128 Resp 24 25 13 20 B/P (MAP) 144/81 (102) Pulse Ox 100 100 100 100 O2 Delivery Room Air Room Air Room Air Room Air 05/19/17 05/19/17 05/19/17 05/19/17 21:00 22:00 22:32 23:00 Pulse 116 130 115 Resp 21 22 24 21 B/P (MAP) 143/83 (103) 105/67 (80) 148/91 (110) Pulse Ox 100 O2 Delivery Room Air Room Air Room Air Room Air 05/20/17 05/20/17 05/20/17 05/20/17 00:00 00:26 00:27 01:00 Temp 98.0 98.0 Pulse 107 115 120 Resp 17 20 23 B/P (MAP) 122/80 (94) 122/80 148/88 (108) Pulse Ox 100 100 O2 Delivery Room Air Room Air Room Air 05/20/17 05/20/17 05/20/17 05/20/17 02:00 03:00 04:00 05:00 Temp 98.4 98.4 Pulse 123 124 124 122 Resp 15 19 16 19 B/P (MAP) 142/84 (103) 137/85 (102) 144/91 (108) 127/94 (105) Pulse Ox 100 O2 Delivery Room Air Room Air Room Air Room Air 05/20/17 05/20/17 05/20/17 05/20/17 05:51 06:00 06:33 07:00 Pulse 117 116 Resp 14 20 18 20 B/P (MAP) 151/93 (112) 143/85 (104) Pulse Ox 100 99 98 O2 Delivery Room Air Room Air Room Air Room Air 05/20/17 05/20/17 05/20/17 09:47 09:47 09:48 Pulse 100 Resp 25 23 B/P (MAP) 143/85 Pulse Ox 99 99 O2 Delivery Room Air Room Air WHIT CABA III, DO May 20, 2017 12:11
--- NOTE | 2017-05-22 11:43 | DS ---
DATE OF DISCHARGE: 05/20/2017 ADMISSION DIAGNOSIS: Chest pain. DISCHARGE DIAGNOSIS: Resolving atypical chest pain. HOSPITAL COURSE: The patient is a pleasant 52-year-old female who presented with chest pain. We admitted the patient. Checked serial enzymes, serial EKGs. We consulted cardiology, her workup was negative. We discharged to home. DISPOSITION: Home. ACTIVITY: As tolerated. DIET: Low sodium. MEDICATIONS: Please see the MRAD. TOTAL TIME: 36 minutes. WHIT CABA DO DR: SHELBY/lev JOB#: [id number] / [id number]
== END 2017-05-20 13:18 | disposition home or self-care (01) ==
LOC: ER 10:35 → 1 WEST ICU 13:20
PROVIDERS: ADMIT Internal Medicine; ATTEND Internal Medicine
DX: R07.89 Other chest pain (principal); R11.2 Nausea with vomiting, unspecified; K92.0 Hematemesis; I16.0 Hypertensive urgency; E78.5 Hyperlipidemia, unspecified; K21.9 Gastro-esophageal reflux disease without esophagitis; F41.9 Anxiety disorder, unspecified; F32.9 Major depressive disorder, single episode, unspecified; E87.6 Hypokalemia; K31.84 Gastroparesis; M06.9 Rheumatoid arthritis, unspecified; I25.10 Atherosclerotic heart disease of native coronary artery without angina pectoris; E11.40 Type 2 diabetes mellitus with diabetic neuropathy, unspecified; E78.00 Pure hypercholesterolemia, unspecified; E83.42 Hypomagnesemia; G89.29 Other chronic pain; F17.210 Nicotine dependence, cigarettes, uncomplicated; I10 Essential (primary) hypertension; I70.0 Atherosclerosis of aorta; Z82.49 Family history of ischemic heart disease and other diseases of the circulatory system; Z83.3 Family history of diabetes mellitus
CPT/HCPCS: 36415; 71010; 71250; 74176; 80047; 80048; 80076; 81001; 83690; 83735; 83880; 84484; 85025; 87641; 93005; 96361; 96365; 96366; 96367; 96368; 96375; 96376; 99285; G0378; J0360; J1170; J2270; J2405; J2765; J3480; J3490; J7030; J7050; J7060; S0028; G0379

== ENCOUNTER 2017-06-16 10:59 | Emergency (ER) | payer SELFPAY ==
[~2017-06-16] VITALS: Ht 170.2 cm; Wt 59.9 kg
[~2017-06-16 10:59] MED LIST changes: +CYCL10TA2 PO; +HYDR25TA PO; +IBUP-1060 PO; +PROC5TAB PO; +SERT100T PO
[2017-06-16] MEDS ORDERED: HALOPERIDOL LACTATE 5 MG/ML VIAL. IVP ONE ×2 (11:30→12:15)
[2017-06-16] MEDS ORDERED: IV NORMAL SALINE 1000ML BAG 1,000 ML IV ONE (11:30)
--- NOTE | 2017-06-16 11:41 | PHYS DOC ---
Past Medical History Past Medical History: Anxiety, Depression, GERD, High Cholesterol, Hypertension , P.U.D., URI, Other Additional Past Medical Histor: Gastroparesis Past Surgical History: Tubal ligation, Other Additional Past Surgical Histo: foot surgery, explor. abd sx Alcohol Use: None Drug Use: None Adult General Chief Complaint Chief Complaint: ABDOMINAL PAIN HPI HPI Patient is a 52 year old female who presents with complaints of 5 nausea vomiting and stomach cramps. Patient describes this episode as the same as multiple previous ones. No sick contacts, no recent changes in medications, no fevers, no chills, no diarrhea, no rashes. Patient has not set up appointment with GI yet. Review of Systems Review of Systems Constitutional: Denies fever or chills [] Eyes: Denies change in visual acuity, redness, or eye pain [] HENT: Yes to sore throat Respiratory: Denies cough or shortness of breath [] Cardiovascular: No chest pain GI: Yes to nausea and vomiting. No diarrhea. Abdominal discomfort. : Denies dysuria or hematuria [] Musculoskeletal: Denies back pain or joint pain [] Integument: Denies rash or skin lesions [] Neurologic: Denies headache, focal weakness or sensory changes [] Current Medications Current Medications Current Medications Medications (Trade) Dose Ordered Sig/Emile Start Time Stop Time Status Last Admin Dose Admin Haloperidol Lactate (Haldol) 1 mg 1X ONCE 06/16/17 12:15 06/16/17 12:16 DC 06/16/17 12:29 1 MG Potassium Chloride 100 ml @ 100 mls/hr Q1H 06/16/17 13:00 06/16/17 14:59 Sodium Chloride 1,000 ml @ 1,000 mls/hr 1X ONCE 06/16/17 11:30 06/16/17 12:29 DC 06/16/17 12:00 1,000 MLS/HR Sucralfate (Carafate) 1 gm 1X ONCE 06/16/17 12:15 06/16/17 12:16 DC 06/16/17 12:46 1 GM Allergies Allergies Allergies Coded Allergies Type Severity Reaction Last Updated Verified Penicillins Allergy Intermediate 12/01/16 Yes Physical Exam Physical Exam Constitutional: Well developed, well nourished, mild distress, non-toxic appearance. [] HENT: Normocephalic, atraumatic, , oropharynx dry, no oral exudates, nose normal. [] Eyes: EOMI, conjunctiva normal, no discharge. [] Neck: Normal range of motion, no tenderness, supple, no stridor. [] Cardiovascular: Tachycardia, equal pulses, normal perfusion Lungs & Thorax: Bilateral breath sounds clear to auscultation, no tachypnea Abdomen: Bowel sounds normal, soft, mild diffuse upper tenderness without guarding or rebound, no masses, no pulsatile masses. [] Skin: Warm, dry, no erythema, no rash. [] Back: No tenderness, no CVA tenderness. [] Extremities: No tenderness, no cyanosis,, ROM intact, no edema. [] Neurologic: Alert and oriented X 3, normal motor function, , no focal deficits noted. [] Psychologic: Affect normal, judgement normal, anxious. [] Current Patient Data Vital Signs Vital Signs Date Time Temp Pulse Resp B/P (MAP) Pulse Ox O2 Delivery O2 Flow Rate FiO2 06/16/17 12:18 70 28 225/122 (156) 100 Room Air 06/16/17 11:15 97.9 97.9 Lab Values Laboratory Tests Test 06/16/17 11:15 06/16/17 11:57 Urine Collection Type Unknown Urine Color Yellow Urine Clarity Clear Urine pH 7.5 Urine Specific [place] 1.010 Urine Protein Negative mg/dL (NEG-TRACE) Urine Glucose (UA) Negative mg/dL (NEG) Urine Ketones (Stick) Trace mg/dL (NEG) Urine Blood Negative (NEG) Urine Nitrite Negative (NEG) Urine Bilirubin Negative (NEG) Urine Urobilinogen Dipstick 0.2 mg/dL (0.2 mg/dL) Urine Leukocyte Esterase Negative (NEG) Urine RBC Rare /HPF (0-2) Urine WBC Occ /HPF (0-4) Urine Squamous Epithelial Cells Few /LPF Urine Bacteria 0 /HPF (0-FEW) Urine Mucus Slight /LPF Urine Opiates Screen Neg (NEG) Urine Methadone Screen Neg (NEG) Urine Barbiturates Neg (NEG) Urine Phencyclidine Screen Neg (NEG) Urine Amphetamine/Methamphetamine Neg (NEG) Urine Benzodiazepines Screen Neg (NEG) Urine Cocaine Screen Neg (NEG) Urine Cannabinoids Screen Neg (NEG) Urine Ethyl Alcohol Neg (NEG) White Blood Count 6.4 x10^3/uL (4.0-11.0) Red Blood Count 5.28 x10^6/uL (3.50-5.40) Hemoglobin 14.4 g/dL (12.0-15.5) Hematocrit 43.6 % (36.0-47.0) Mean Corpuscular Volume 83 fL (79-100) Mean Corpuscular Hemoglobin 27 pg (25-35) Mean Corpuscular Hemoglobin Concent 33 g/dL (31-37) Red Cell Distribution Width 17.1 % (11.5-14.5) H Platelet Count 189 x10^3/uL (140-400) Neutrophils (%) (Auto) 57 % (31-73) Lymphocytes (%) (Auto) 34 % (24-48) Monocytes (%) (Auto) 7 % (0-9) Eosinophils (%) (Auto) 0 % (0-3) Basophils (%) (Auto) 1 % (0-3) Neutrophils # (Auto) 3.7 x10^3uL (1.8-7.7) Lymphocytes # (Auto) 2.2 x10^3/uL (1.0-4.8) Monocytes # (Auto) 0.5 x10^3/uL (0.0-1.1) Eosinophils # (Auto) 0.0 x10^3/uL (0.0-0.7) Basophils # (Auto) 0.1 x10^3/uL (0.0-0.2) Sodium Level 139 mmol/L (136-145) Potassium Level 2.9 mmol/L (3.5-5.1) *L Chloride Level 102 mmol/L (98-107) Carbon Dioxide Level 20 mmol/L (21-32) L Anion Gap 17 (6-14) H Blood Urea Nitrogen 10 mg/dL (7-20) Creatinine 0.8 mg/dL (0.6-1.0) Estimated GFR (Cockcroft-Gault) 90.8 BUN/Creatinine Ratio 13 (6-20) Glucose Level 128 mg/dL (70-99) H Calcium Level 9.7 mg/dL (8.5-10.1) Total Bilirubin 0.4 mg/dL (0.2-1.0) Aspartate Amino Transferase (AST) 20 U/L (15-37) Alanine Aminotransferase (ALT) 13 U/L (14-59) L Alkaline Phosphatase 89 U/L (46-116) Total Protein 8.5 g/dL (6.4-8.2) H Albumin 4.1 g/dL (3.4-5.0) Albumin/Globulin Ratio 0.9 (1.0-1.7) L Lipase 121 U/L (73-393) Laboratory Tests 06/16/17 11:57 Laboratory Tests 06/16/17 11:57 EKG EKG [] Radiology/Procedures Radiology/Procedures [] Course & Med Decision Making Course & Med Decision Making Pertinent Labs and Imaging studies reviewed. (See chart for details) discussed with the patient 1314 pt not vomiting any more. Abdomen soft with mild diffuse tenderness without guarding or rebound. I have emphasized to the patient the need to follow -up with her primary care doctor as well as her GI for follow-up for scope Patient is to follow-up as directed [] Dragon Disclaimer Dragon Disclaimer This electronic medical record was generated, in whole or in part, using a voice recognition dictation system. Departure Departure Impression: Primary Impression: Abdominal pain Additional Impressions: Nausea & vomiting Dehydration Hypokalemia Disposition: HOME, SELF-CARE Condition: STABLE Referrals: UNKNOWN PCP NAME (PCP) Please follow-up with your doctor in 1-2 days for recheck and reevaluation and recheck in with your potassium level, please also discuss the need for referral GI as previously planned Patient Instructions: Abdominal Pain (Nonspecific), Dehydration, Adult, Easy-to -Read, Hypokalemia-Brief, Nausea and Vomiting, [id number] Scripts Potassium Chloride (POTASSIUM CHLORIDE) 10 Meq Tablet.er 10 MEQ PO DAILYBFRSUP for 7 Days, #7 TAB Prov: Tegan WORTHINGTON MD 06/16/17 Sucralfate (CARAFATE) 1 Gm/10 Ml Oral.susp 10 ML PO BID, #120 ML 1 Refill Prov: Tegan WORTHINGTON MD 06/16/17 Ondansetron (ZOFRAN ODT) 4 Mg Tab.rapdis 1 TAB SL Q8HRS, #15 TAB Prov: Tegan WORTHINGTON MD 06/16/17 Promethazine HCl (Phenergan) 12.5 Mg Supp.rect 12.5 MG RC BID for 5 Days, #10 SUPP.RECT Prov: Tgean WORTHINGTON MD 06/16/17 Problem Qualifiers Tegan WORTHINGTON MD Jun 16, 2017 11:41
[2017-06-16 11:49] LABS: BILIRUBIN,URINE NEGATIVE (NEG); GLUCOSE,URINE NEGATIVE (NEG); NITRITE,URINE NEGATIVE (NEG); PH,URINE 7.5; PROTEIN,URINE NEGATIVE (NEG-TRACE); UROBILINOGEN,URINE 0.2 mg/dL (0.2 mg/dL)
[2017-06-16 11:52] LABS: BARBITURATES NEG (NEG); BENZODIAZEPINES NEG (NEG); CANNABINOIDS NEG (NEG); COCAINE NEG (NEG); METHADONE NEG (NEG); OPIATES NEG (NEG); PHENCYCLIDINE NEG (NEG)
[2017-06-16 12:08] LABS: BASO # 0.1 x10^3/uL (0.0-0.2); BASO % 1 % (0-3); EOS % 0 % (0-3); HEMATOCRIT 43.6 % (36.0-47.0); HEMOGLOBIN 14.4 g/dL (12.0-15.5); LYMPH # 2.2 x10^3/uL (1.0-4.8); LYMPH % 34 % (24-48); MEAN CORPUSCULAR HEMOGLOBIN 27 pg (25-35); MEAN CORPUSCULAR HGB CONC 33 g/dL (31-37); MEAN CORPUSCULAR VOLUME 83 fL (79-100); MONO % 7 % (0-9); NEUT % 57 % (31-73); PLATELET COUNT 189 x10^3/uL (140-400); RED BLOOD COUNT 5.28 x10^6/uL (3.50-5.40); RED CELL DISTRIBUTION WIDTH 17.1 % (11.5-14.5); WHITE BLOOD COUNT 6.4 x10^3/uL (4.0-11.0)
[2017-06-16 12:09] LABS: SQUAMOUS EPITHELIAL CELL,UR FEW /LPF
[2017-06-16 12:10] LABS: BACTERIA,URINE 0 /HPF (0-FEW); RBC,URINE RARE /HPF (0-2); WBC,URINE OCC /HPF (0-4)
[2017-06-16] MEDS ORDERED: SUCRALFATE 1 GM/10 ML ORAL.SUSP. PEG ONE (12:15)
[2017-06-16 12:47] VITALS: BP 215/131
[2017-06-16 12:51] LABS: ALBUMIN 4.1 g/dL (3.4-5.0); ALBUMIN/GLOBULIN RATIO 0.9 (1.0-1.7); CALCIUM 9.7 mg/dL (8.5-10.1); CREATININE 0.8 mg/dL (0.6-1.0); GFR 90.8; TOTAL BILIRUBIN 0.4 mg/dL (0.2-1.0); TOTAL PROTEIN 8.5 g/dL (6.4-8.2)
[2017-06-16 12:52] LABS: POTASSIUM 2.9 mmol/L (3.5-5.1)
[2017-06-16] MEDS ORDERED: POTASSIUM CHLORIDE 10MEQ 100 ML IV SCH (13:00)
[2017-06-16] MEDS ORDERED: ONDA4TAB10 SL (13:22)
[2017-06-16] MEDS ORDERED: PROM12.553 RC (13:22)
[2017-06-16] MEDS ORDERED: SUCR1ORA5 PO (13:24)
[2017-06-16] MEDS ORDERED: POTA10TA12 PO (13:27)
== END 2017-06-16 13:44 | disposition home or self-care (01) ==
LOC: ER 10:59
DX: R10.9 Unspecified abdominal pain (principal); R11.2 Nausea with vomiting, unspecified; E86.0 Dehydration; E87.6 Hypokalemia; I10 Essential (primary) hypertension; E78.00 Pure hypercholesterolemia, unspecified; K21.9 Gastro-esophageal reflux disease without esophagitis; Z88.0 Allergy status to penicillin; Z79.899 Other long term (current) drug therapy
CPT/HCPCS: 36415; 80053; 80307; 81001; 83690; 85025; 96361; 96374; 99284; J1630; J7030; G0479

== ENCOUNTER 2019-03-26 12:32 | Inpatient (IN) | payer SELFPAY ==
[~2019-03-26] VITALS: Ht 170.2 cm; Wt 59.0 kg
[~2019-03-26 12:32] MED LIST changes: -AMLO10TA2 PO; +AMLO10TA8 PO; -CITA20TA5 PO; +CITA20TA6 PO; +GABA300C18 PO; -GABA300C8 PO; +HYDR-2761 PO; +HYDR-3164 PO; -HYDR-971 PO; +LABE100T5 PO; +ONDA4TAB7 PO; -PANT40TA5 PO; +PANT40TA77 PO; +POTA10TA12 PO; -PROC5TAB PO; +PROC5TAB2 PO; +PROM12.553 RC; +SUCR1ORA5 PO
[2019-03-26] MEDS ORDERED: ONDANSETRON PF 4 MG/2 ML VIAL. IV ONE (12:45)
[2019-03-26] MEDS ORDERED: IV NORMAL SALINE 1000ML BAG 1,000 ML IV ONE (12:45)
[2019-03-26] MEDS ORDERED: MORPHINE SULFATE 4 MG/ML VIAL. IV ONE ×2 (13:00→14:30)
[2019-03-26] MEDS ORDERED: PANTOPRAZOLE IV PUSH 40 MG VIAL. IVP ONE (13:00)
[2019-03-26 13:13] LABS: GASTRIC OB PAT POSITIVE (NEG)
[2019-03-26 13:42] LABS: BILIRUBIN,URINE NEGATIVE (NEG); CLARITY,URINE CLEAR; COLOR,URINE YELLOW; NITRITE,URINE NEGATIVE (NEG); PROTEIN,URINE 100 mg/dL (NEG-TRACE); UROBILINOGEN,URINE 0.2 mg/dL (0.2 mg/dL)
[2019-03-26 13:59] LABS: BASO % 0 % (0-3); EOS % 0 % (0-3); HEMATOCRIT 51.5 % (36.0-47.0); HEMOGLOBIN 17.3 g/dL (12.0-15.5); LYMPH % 17 % (24-48); MEAN CORPUSCULAR HEMOGLOBIN 29 pg (25-35); MEAN CORPUSCULAR HGB CONC 34 g/dL (31-37); MEAN CORPUSCULAR VOLUME 87 fL (79-100); MONO # 0.7 x10^3/uL (0.0-1.1); MONO % 6 % (0-9); NEUT # 9.2 x10^3uL (1.8-7.7); NEUT % 77 % (31-73); PLATELET COUNT 241 x10^3/uL (140-400); RED BLOOD COUNT 5.91 x10^6/uL (3.50-5.40); RED CELL DISTRIBUTION WIDTH 14.8 % (11.5-14.5)
[2019-03-26 14:16] LABS: CALCIUM 11.2 mg/dL (8.5-10.1); CREATININE 1.1 mg/dL (0.6-1.0); GFR 62.4; POTASSIUM 3.2 mmol/L (3.5-5.1)
[2019-03-26 14:19] LABS: ALBUMIN 5.2 g/dL (3.4-5.0); ALBUMIN/GLOBULIN RATIO 1.1 (1.0-1.7); TOTAL BILIRUBIN 1.1 mg/dL (0.2-1.0); TOTAL PROTEIN 10.1 g/dL (6.4-8.2)
[2019-03-26] MEDS ORDERED: hydrALAZINE 20 MG/ML VIAL. IVP ONE (14:30)
[2019-03-26 14:34] LABS: BACTERIA,URINE 0 /HPF (0-FEW); SQUAMOUS EPITHELIAL CELL,UR OCC /LPF; WBC,URINE OCC /HPF (0-4)
[2019-03-26] MEDS ORDERED: PANTOPRAZOLE SODIUM IV DRIP 80 MG in IV NORMAL SALINE 100ML 100 ML IV ONE (14:45)
--- NOTE | 2019-03-26 14:45 | PHYS DOC ---
Past Medical History Past Medical History: Anxiety, Depression, GERD, High Cholesterol, Hypertension, P.U.D., URI, Other Additional Past Medical Histor: Gastroparesis Past Surgical History: Tubal ligation, Other Additional Past Surgical Histo: foot surgery, explor. abd sx Alcohol Use: None Drug Use: None Adult General Chief Complaint Chief Complaint: ABDOMINAL PAIN HPI HPI Patient is a 54 year old AA female, who is well known to the ER that presents to the ER with complaints of vomiting blood and diffuse abdominal pain since 0800. Pt states she has lost count of how many times she has vomited. She denies any fever, headache, back pain, dysuria, hematuria, bloody stools, cough, or shortness of breath. Currently, she rates her pain a 10/10 on the pain scale there are no alleviating factors. She reports a history of hypertension and states she did not take her medication today. Review of Systems Review of Systems Constitutional: Denies fever or chills [] Eyes: Denies change in visual acuity, redness, or eye pain [] HENT: Denies nasal congestion or sore throat [] Respiratory: Denies cough or shortness of breath [] Cardiovascular: No additional information not addressed in HPI [] GI: see HPI : Denies dysuria or hematuria [] Musculoskeletal: Denies back pain or joint pain [] Integument: Denies rash or skin lesions [] Neurologic: Denies headache, focal weakness or sensory changes [] Complete systems were reviewed and found to be within normal limits, except as documented in this note. Current Medications Current Medications Current Medications Medications (Trade) Dose Ordered Sig/Emile Start Time Stop Time Status Last Admin Dose Admin Hydralazine HCl (Apresoline Inj) 10 mg 1X ONCE 03/26/19 14:30 03/26/19 14:31 DC 03/26/19 15:12 10 MG Morphine Sulfate (Morphine Sulfate) 4 mg 1X ONCE 03/26/19 14:30 03/26/19 14:31 DC 03/26/19 15:11 4 MG Ondansetron HCl (Zofran) 4 mg 1X ONCE 03/26/19 12:45 03/26/19 12:46 DC 03/26/19 13:39 4 MG Pantoprazole Sodium (PROTONIX VIAL for IV PUSH) 80 mg 1X ONCE 03/26/19 13:00 03/26/19 13:01 DC 03/26/19 13:39 80 MG Sodium Chloride 1,000 ml @ 1,000 mls/hr 1X ONCE 03/26/19 12:45 03/26/19 13:44 DC 03/26/19 13:39 1,000 MLS/HR Allergies Allergies Allergies Coded Allergies Type Severity Reaction Last Updated Verified Penicillins Allergy Intermediate 12/01/16 Yes Physical Exam Physical Exam Constitutional: Well developed, well nourished, no acute distress, non-toxic ap pearance. [] HENT: Normocephalic, atraumatic, bilateral external ears normal, oropharynx moist, no oral exudates, nose normal. [] Eyes: PERRLA, conjunctiva normal, no discharge. [] Neck: Normal range of motion, no stridor. [] Cardiovascular:Heart rate regular rhythm Lungs & Thorax: Bilateral breath sounds clear to auscultation [] Abdomen: Bowel sounds normal, soft, epigastric tenderness, no masses, no pulsatile masses. [] Skin: Warm, dry, no erythema, no rash. [] Extremities: No cyanosis, no clubbing, ROM intact, no edema. [] Neurologic: Alert and oriented X 3, no focal deficits noted. [] Psychologic: Affect normal, judgement normal, mood normal. [] Current Patient Data Vital Signs Vital Signs Date Time Temp Pulse Resp B/P (MAP) Pulse Ox O2 Delivery O2 Flow Rate FiO2 03/26/19 13:00 98.1 74 16 207/89 (128) 100 Room Air 98.1 Lab Values Laboratory Tests Test 03/26/19 12:50 03/26/19 13:35 03/26/19 13:50 Gastric Fluid Occult Blood Positive (NEG) Urine Color Yellow Urine Clarity Clear Urine pH 8.0 Urine Specific [place] 1.010 Urine Protein 100 mg/dL (NEG-TRACE) Urine Glucose (UA) 100 mg/dL (NEG) Urine Ketones (Stick) Trace mg/dL (NEG) Urine Blood Small (NEG) Urine Nitrite Negative (NEG) Urine Bilirubin Negative (NEG) Urine Urobilinogen Dipstick 0.2 mg/dL (0.2 mg/dL) Urine Leukocyte Esterase Negative (NEG) Urine RBC 1-2 /HPF (0-2) Urine WBC Occ /HPF (0-4) Urine Squamous Epithelial Cells Occ /LPF Urine Bacteria 0 /HPF (0-FEW) White Blood Count 12.0 x10^3/uL (4.0-11.0) H Red Blood Count 5.91 x10^6/uL (3.50-5.40) H Hemoglobin 17.3 g/dL (12.0-15.5) H Hematocrit 51.5 % (36.0-47.0) H Mean Corpuscular Volume 87 fL (79-100) Mean Corpuscular Hemoglobin 29 pg (25-35) Mean Corpuscular Hemoglobin Concent 34 g/dL (31-37) Red Cell Distribution Width 14.8 % (11.5-14.5) H Platelet Count 241 x10^3/uL (140-400) Neutrophils (%) (Auto) 77 % (31-73) H Lymphocytes (%) (Auto) 17 % (24-48) L Monocytes (%) (Auto) 6 % (0-9) Eosinophils (%) (Auto) 0 % (0-3) Basophils (%) (Auto) 0 % (0-3) Neutrophils # (Auto) 9.2 x10^3uL (1.8-7.7) H Lymphocytes # (Auto) 2.0 x10^3/uL (1.0-4.8) Monocytes # (Auto) 0.7 x10^3/uL (0.0-1.1) Eosinophils # (Auto) 0.0 x10^3/uL (0.0-0.7) Basophils # (Auto) 0.0 x10^3/uL (0.0-0.2) Sodium Level 140 mmol/L (136-145) Potassium Level 3.2 mmol/L (3.5-5.1) L Chloride Level 99 mmol/L (98-107) Carbon Dioxide Level 24 mmol/L (21-32) Anion Gap 17 (6-14) H Blood Urea Nitrogen 12 mg/dL (7-20) Creatinine 1.1 mg/dL (0.6-1.0) H Estimated GFR (Cockcroft-Gault) 62.4 BUN/Creatinine Ratio 11 (6-20) Glucose Level 144 mg/dL (70-99) H Calcium Level 11.2 mg/dL (8.5-10.1) H Magnesium Level 2.0 mg/dL (1.8-2.4) Total Bilirubin 1.1 mg/dL (0.2-1.0) H Aspartate Amino Transferase (AST) 23 U/L (15-37) Alanine Aminotransferase (ALT) 27 U/L (14-59) Alkaline Phosphatase 104 U/L (46-116) Troponin I Quantitative < 0.017 ng/mL (0.000-0.055) Total Protein 10.1 g/dL (6.4-8.2) H Albumin 5.2 g/dL (3.4-5.0) H Albumin/Globulin Ratio 1.1 (1.0-1.7) Laboratory Tests 03/26/19 13:50 Laboratory Tests 03/26/19 13:50 EKG EKG [] Radiology/Procedures Radiology/Procedures [] Course & Med Decision Making Course & Med Decision Making Pertinent Labs and Imaging studies reviewed. (See chart for details) Dx: upper GI bleed, hematemesis, vomiting, hypertension cbc unremarkable, K+ 3.2, glucose 144, calcium 11.2, bilirubin 1.1, troponin <0.017, UA unremarkable, Gastric contents positive for blood Pt was given 2 doses of morphine, 80 mg of IV protonix, 4 mg of zofran, and 1L N S in the ER. A protonix gtt was ordered. 10 mg of hydralizine was ordered. PT remained hypertensive, prior to being transferred to floor 10 mg of labetalol was ordered. 1443- Spoke with Dr. Loya who will admit patient for upper GI bleed, hematemesis, vomiting, and hypertension [] Dragon Disclaimer Dragon Disclaimer This electronic medical record was generated, in whole or in part, using a voice recognition dictation system. Departure Departure Impression: Primary Impression: Upper GI bleed Additional Impressions: Hematemesis Vomiting Essential hypertension Disposition: ADMITTED INPATIENT Admitting Physician: HOLLY osorio) Condition: STABLE Referrals: UNKNOWN PCP NAME (PCP) Problem Qualifiers Additional Impressions: Hematemesis Nausea presence: with nausea Qualified Codes: K92.0 - Hematemesis Vomiting Vomiting type: hematemesis Nausea presence: with nausea Qualified Codes: K92.0 - Hematemesis MATTHEW RENTERIA [employer]ER Mar 26, 2019 14:45
[2019-03-26] MEDS ORDERED: hydrOXYzine 25 MG TABLET PO PRN (15:45)
[2019-03-26] MEDS ORDERED: ONDANSETRON ODT 4 MG TAB.RAPDIS. PO PRN (15:45)
[2019-03-26] MEDS ORDERED: LIDO:MAALOX 1:1 20 ML SINGLE DOSE. SWSW PRN (15:45)
[2019-03-26] MEDS ORDERED: MORPHINE SULFATE 4 MG/ML VIAL. IV PRN (16:00)
[2019-03-26] MEDS ORDERED: POTASSIUM CL 20MEQ D5-0.45NACL 1,000 ML IV ONE (16:00)
[2019-03-26] MEDS ORDERED: POTASSIUM CHLORIDE 20 MEQ TABLET.ER. PO ONE (16:00)
[2019-03-26] MEDS ORDERED: NICOTINE 14MG PATCH. TD PRN (16:00)
[2019-03-26] MEDS: GABAPENTIN 300 MG CAPSULE. PO SCH ×2 (16:00→20:57)
[2019-03-26] MEDS ORDERED: NICOTINE POLACRILEX 2MG GUM PACKAGE of 12. BC PRN (16:00)
--- NOTE | 2019-03-26 16:24 | PDOC ---
Subjective: Subjective: Rosa see GI consult from 03/05/19 and following progress notes. H/o gastroparesis, GERD, and non-compliance. We saw her last admission for vomiting w/ streaks of red blood and abd pain after being out of her regular medications. Significant HTN at that time. Symptoms quickly resolved. Back with the same. Not a good historian this time - first says she suddenly got sick at 8:00 a.m. this morning, then says she started vomiting yesterday. Says she's taking her medications, then says she can't. Says did a lot of vomiting at home today, then noted some red blood. Per ER notes, emesis is "mucousy with red specks." Denies diarrhea, constipation, hematochezia, melena. Previously reported [place]scopes at [facility] ~6 months ago w/ "H. pylori ulcer." Records requested but not received. Objective: Vital Signs: Vital Signs Date Time Temp Pulse Resp B/P (MAP) Pulse Ox O2 Delivery O2 Flow Rate FiO2 03/26/19 15:12 97 251/136 03/26/19 15:11 20 99 03/26/19 13:00 98.1 Room Air 98.1 Labs: Laboratory Tests Test 03/26/19 12:50 03/26/19 13:35 03/26/19 13:50 Gastric Fluid Occult Blood Positive Urine Color Yellow Urine Clarity Clear Urine pH 8.0 Urine Specific [place] 1.010 Urine Protein 100 mg/dL Urine Glucose (UA) 100 mg/dL Urine Ketones (Stick) Trace mg/dL Urine Blood Small Urine Nitrite Negative Urine Bilirubin Negative Urine Urobilinogen Dipstick 0.2 mg/dL Urine Leukocyte Esterase Negative Urine RBC 1-2 /HPF Urine WBC Occ /HPF Urine Squamous Epithelial Cells Occ /LPF Urine Bacteria 0 /HPF White Blood Count 12.0 x10^3/uL Red Blood Count 5.91 x10^6/uL Hemoglobin 17.3 g/dL Hematocrit 51.5 % Mean Corpuscular Volume 87 fL Mean Corpuscular Hemoglobin 29 pg Mean Corpuscular Hemoglobin Concent 34 g/dL Red Cell Distribution Width 14.8 % Platelet Count 241 x10^3/uL Neutrophils (%) (Auto) 77 % Lymphocytes (%) (Auto) 17 % Monocytes (%) (Auto) 6 % Eosinophils (%) (Auto) 0 % Basophils (%) (Auto) 0 % Neutrophils # (Auto) 9.2 x10^3uL Lymphocytes # (Auto) 2.0 x10^3/uL Monocytes # (Auto) 0.7 x10^3/uL Eosinophils # (Auto) 0.0 x10^3/uL Basophils # (Auto) 0.0 x10^3/uL Sodium Level 140 mmol/L Potassium Level 3.2 mmol/L Chloride Level 99 mmol/L Carbon Dioxide Level 24 mmol/L Anion Gap 17 Blood Urea Nitrogen 12 mg/dL Creatinine 1.1 mg/dL Estimated GFR (Cockcroft-Gault) 62.4 BUN/Creatinine Ratio 11 Glucose Level 144 mg/dL Calcium Level 11.2 mg/dL Magnesium Level 2.0 mg/dL Total Bilirubin 1.1 mg/dL Aspartate Amino Transf (AST/SGOT) 23 U/L Alanine Aminotransferase (ALT/SGPT) 27 U/L Alkaline Phosphatase 104 U/L Troponin I Quantitative < 0.017 ng/mL Total Protein 10.1 g/dL Albumin 5.2 g/dL Albumin/Globulin Ratio 1.1 PE: GEN: uncomfortable but drowsy HEENT: Atraumatic, PERRL LUNGS: room air HEART: tachycardic ABD: tender to light touch and placement of stethoscope - similar to last admission, soft EXTREMITY: No edema SKIN: No rashes, no jaundice NEURO/PSYCH: falls asleep between questions, then shifts around in bed frequently A/P: Vomiting/"hematemesis", uncontrolled HTN, non-compliance GERD, gastroparesis H/o H. pylori "ulcer" - records requested from [facility] [place] last admission CRC screen - reports normal colonoscopy <1 year ago @ [facility] -- Hgb 17.3, BUN 12, BP 251/136 - doubt meaningful GI bleed. ?non-compliance the issue again - symptoms probably multi-factorial w/ elevated BP and GI history. Has PPI drip and PO PPI ordered - probably just needs one, maybe IV for now considering vomiting. Usually does well with addition of Reglan - will review w/ Dr. Mccarty. Hasn't had abd imaging since 2017 - could consider this as well. ANDRES HOFFMAN Mar 26, 2019 16:24
[2019-03-26] MEDS: SUCRALFATE 1 GM TABLET. PO SCH ×3 (16:30→20:57)
[2019-03-26] MEDS ORDERED: LABETALOL 20 MG/4 ML DISP.SYRIN. IVP ONE (16:30)
[2019-03-26 16:45] VITALS: BP 188/141
[2019-03-26] MEDS ORDERED: POTASSIUM CHLORIDE 10 MEQ TABLET.ER. PO SCH ×2 (17:00→20:00)
[2019-03-26 17:11] VITALS: BP 196/138
[2019-03-26 17:36] VITALS: BP_SYST 188; BP_DIAS 131; BP_DIAS 141
[2019-03-26] MEDS: METOCLOPRAMIDE HCL 10 MG/2 ML VIAL. IV SCH ×2 (17:36→21:00)
--- NOTE | 2019-03-26 18:14 | NUR ---
Patient arrived on the unit at 1645. Patient was taken to her room and assisted to her bed. Her vitals upon admission to the unit were BP: 188/141 and pulse was 140. Dr. Loya was contacted to ensure she did not need to be on telemetry and he advised he would placed some additional orders and a decision would be made if the vitals did not normalize. Medications were given to patient and this nurse will continue to monitor until end of shift where she will provide all pertinant information regarding the vitals status to the next RN.
[2019-03-26 18:33] VITALS: BP 124/95
--- NOTE | 2019-03-26 19:50 | PDOC1 ---
History and Physical Date of Admission Date of Admission DATE: 03/26/19 TIME: 19:46 Identification/Chief Complaint Chief Complaint abd pain Source Source: Chart review, Patient History of Present Illness History of Present Illness Ms. Rajput, is a 54 year old AA female, seen in the ER for marked htn, tachycardia and severe abd pain. worseneing over 2 days, abd pain now 10/10. IV pain meds given in ER with minimal, transient help known to GI service, known GERD, ulcer disease she vomited mult times today, coffee ground appearance she was unable to take her BP meds today Past Medical History Cardiovascular: HTN, Hyperlipidemia Pulmonary: No pertinent hx GI: GERD, Other Hepatobiliary: No pertinent hx Psych: Anxiety, Depression Rheumatologic: Rheumatoid arthritis Infectious disease: No pertinent hx Renal/: No pertinent hx Endocrine: No pertinent hx Past Surgical History Past Surgical History: Other Family History Family History: Diabetes, Heart Disease Social History Smoke: No ALCOHOL: none Drugs: Marijuana Current Problem List Problem List Problems Medical Problems: (1) Essential hypertension Status: Acute (2) Hematemesis Status: Acute (3) Upper GI bleed Status: Acute (4) Vomiting Status: Acute Current Medications Current Medications Current Medications Sodium Chloride 1,000 ml @ 1,000 mls/hr 1X ONCE IV Last administered on 03/26/19at 13:39; Start 03/26/19 at 12:45; Stop 03/26/19 at 13:44; Status DC Ondansetron HCl (Zofran) 4 mg 1X ONCE IV Last administered on 03/26/19at 13:39; Start 03/26/19 at 12:45; Stop 03/26/19 at 12:46; Status DC Morphine Sulfate (Morphine Sulfate) 4 mg 1X ONCE IV Last administered on 03/26/19at 13:39; Start 03/26/19 at 13:00; Stop 03/26/19 at 13:01; Status DC Pantoprazole Sodium (PROTONIX VIAL for IV PUSH) 80 mg 1X ONCE IVP Last administered on 03/26/19at 13:39; Start 03/26/19 at 13:00; Stop 03/26/19 at 13:01; Status DC Morphine Sulfate (Morphine Sulfate) 4 mg 1X ONCE IV Last administered on 03/26/19at 15:11; Start 03/26/19 at 14:30; Stop 03/26/19 at 14:31; Status DC Hydralazine HCl (Apresoline Inj) 10 mg 1X ONCE IVP Last administered on 03/26/19at 15:12; Start 03/26/19 at 14:30; Stop 03/26/19 at 14:31; Status DC Pantoprazole Sodium 80 mg/ Sodium Chloride 100 ml @ 10 mls/hr 1X ONCE IV Last administered on 03/26/19at 15:15; Start 03/26/19 at 14:45; Stop 03/27/19 at 00:44 Amlodipine Besylate (Norvasc) 10 mg DAILY PO ; Start 03/27/19 at 09:00 Atorvastatin Calcium (Lipitor) 10 mg QHS PO ; Start 03/26/19 at 21:00 Cyclobenzaprine HCl (Flexeril) 10 mg QHS PO ; Start 03/26/19 at 21:00 Gabapentin (Neurontin) 300 mg TID PO ; Start 03/26/19 at 16:00 Acetaminophen/ Hydrocodone Bitart (Lortab 5/325) 1 tab PRN Q4HRS PRN PO PAIN; Start 03/26/19 at 15:45 Hydroxyzine HCl (Atarax) 50 mg PRN Q6HRS PRN PO ITCHING; Start 03/26/19 at 15:45 Ondansetron HCl (Zofran Odt) 4 mg PRN Q8HRS PRN PO nausea; Start 03/26/19 at 15:45 Potassium Chloride (Klor-Con) 10 meq DAILYBFRSUP PO ; Start 03/26/19 at 17:00; Stop 03/26/19 at 17:25; Status DC Promethazine HCl (Phenergan Supp) 12.5 mg BID RC ; Start 03/26/19 at 21:00 Labetalol HCl (Trandate) 100 mg BID PO ; Start 03/26/19 at 21:00 Pantoprazole Sodium (Protonix) 40 mg DAILYAC PO ; Start 03/27/19 at 07:30 Sertraline HCl (Zoloft) 100 mg DAILY PO ; Start 03/27/19 at 09:00 Sucralfate (Carafate) 1 gm QIDACHS PO Last administered on 03/26/19at 17:35; Start 03/26/19 at 16:30 Potassium Chloride (Klor-Con) 40 meq 1X ONCE PO ; Start 03/26/19 at 16:00; Stop 03/26/19 at 16:01; Status Cancel Multi-Ingredient Mouthwash/Gargle (Gi Cocktail) 20 ml PRN Q4HRS PRN SWSW abd pa in Last administered on 03/26/19at 17:35; Start 03/26/19 at 15:45 Morphine Sulfate (Morphine Sulfate) 4 mg PRN Q2HRS PRN IV pain Last administered on 03/26/19at 17:36; Start 03/26/19 at 16:00 Potassium Chloride/Dextrose/ Sod Cl 1,000 ml @ 100 mls/hr 1X ONCE IV Last administered on 03/26/19at 17:35; Start 03/26/19 at 16:00; Stop 03/27/19 at 01:59 Nicotine (Nicoderm Cq 14mg) 1 patch PRN DAILY PRN TD SMOKING CESSATION; Start 03/26/19 at 16:00 Nicotine Polacrilex (Nicorette Gum) 1 each PRN Q1HR PRN BC SMOKING CESSATION; Start 03/26/19 at 16:00 Labetalol HCl (Normodyne Iv Push) 10 mg 1X ONCE IVP Last administered on 03/26/19at 16:30; Start 03/26/19 at 16:30; Stop 03/26/19 at 16:32; Status DC Metoclopramide HCl (Reglan Vial) 10 mg QIDACHS IV Last administered on 03/26/19at 17:36; Start 03/26/19 at 17:30 Potassium Chloride (Klor-Con) 10 meq DAILYBFRSUP PO ; Start 03/26/19 at 20:00 Active Scripts Active Zofran (Ondansetron Hcl) 4 Mg Tablet 1 Tab PO Q6HRS Labetalol Hcl 100 Mg Tablet 100 Mg PO BID Hydrocodone-Apap 5-325 (Hydrocodone Bit/Acetaminophen) 1 Tab Tablet 1 Tab PO PRN Q4HRS PRN Carafate (Sucralfate) 1 Gm Tablet 1 Tab PO QID Omeprazole 20 Mg Tablet.dr 20 Mg PO BID Potassium Chloride 10 Meq Tablet.er 10 Meq PO DAILYBFRSUP 7 Days Zofran Odt (Ondansetron) 4 Mg Tab.rapdis 1 Tab SL Q8HRS Phenergan (Promethazine HCl) 12.5 Mg Supp.rect 12.5 Mg RC BID 5 Days Reported Hydroxyzine Hcl 25 Mg Tablet 50 Mg PO PRN Q6HRS PRN Zoloft (Sertraline Hcl) 100 Mg Tablet 1 Tab PO DAILY Prochlorperazine Maleate 5 Mg Tablet 5 Mg PO PRN TID PRN Cyclobenzaprine Hcl 10 Mg Tablet 1 Tab PO QHS Amlodipine Besylate 10 Mg Tablet 10 Mg PO DAILY Gabapentin 300 Mg Capsule 300 Mg PO TID Atorvastatin Calcium 10 Mg Tablet 1 Tab PO DAILY Allergies Allergies: Coded Allergies: Penicillins (Verified Allergy, Intermediate, 12/01/16) ROS General: No: Chills, Night Sweats, Fatigue, Malaise, Appetite, Other PSYCHOLOGICAL ROS: YES: Sleep disturbances Eyes: No Blurry vision, No Decreased vision, No Double vision, No Dry eyes, No Excessive tearing, No Eye Pain, No Itchy Eyes, No Loss of vision, No Photophobia, No Scotomata, No Uses contacts, No Uses glasses, No Other HEENT: YES: Heacaches Respiratory: No: Cough, Hemoptysis, Orthopnea, Pleuritic Pain, Shortness of breath, SOB with excertion, Sputum Changes, Stridor, Tachypnea, Wheezing, Other Cardiovascular: No Chest Pain, No Palpitations, No Orthopnea, No Paroxysmal Noc. Dyspnea, No Edema, No Lt Headedness, No Other Gastrointestinal: Yes Nausea, Yes Abdominal Pain, Yes Other (vomiting coffee ground ) Genitourinary: No Dysuria, No Frequency, No Incontinence, No Hematuria, No Retention, No Discharge, No Urgency, No Pain, No Flank Pain, No Other, No , No , No , No , No , No , No Musculoskeletal: No Gait Disturbance, No Joint Pain, No Joint Stiffness, No Joint Swelling, No Muscle Pain, No Muscular Weakness, No Pain In:, No Swelling In:, No Other Neurological: No Behavorial Changes, No Bowel/Bladder ControlChng, No Confusion, No Dizziness, No Gait Disturbance, No Headaches, No Impaired Coord/balance, No Memory Loss, No Numbness/Tingling, No Seizures, No Speech Problems, No Tremors, No Visual Changes, No Weakness, No Other Skin: Yes Dry Skin Physical Exam General: Alert, Oriented X3, moderate distress, severe distress HEENT: Atraumatic Lungs: Normal air movement Heart: murmurs Abdomen: Soft (tender) Extremities: Normal pulses Skin: No rashes, No significant lesion Neuro: Normal gait, Sensation intact, Cranial nerves 3-12 NL Psych/Mental Status: Mood NL Vitals Vitals Vital Signs Date Time Temp Pulse Resp B/P (MAP) Pulse Ox O2 Delivery O2 Flow Rate FiO2 03/26/19 18:33 102 124/95 (105) 03/26/19 18:28 Room Air 03/26/19 16:45 97.9 16 97 97.9 Labs Labs Laboratory Tests Test 03/26/19 12:50 03/26/19 13:35 03/26/19 13:50 Gastric Fluid Occult Blood Positive (NEG) Urine Color Yellow Urine Clarity Clear Urine pH 8.0 Urine Specific [place] 1.010 Urine Protein 100 mg/dL (NEG-TRACE) Urine Glucose (UA) 100 mg/dL (NEG) Urine Ketones (Stick) Trace mg/dL (NEG) Urine Blood Small (NEG) Urine Nitrite Negative (NEG) Urine Bilirubin Negative (NEG) Urine Urobilinogen Dipstick 0.2 mg/dL (0.2 mg/dL) Urine Leukocyte Esterase Negative (NEG) Urine RBC 1-2 /HPF (0-2) Urine WBC Occ /HPF (0-4) Urine Squamous Epithelial Cells Occ /LPF Urine Bacteria 0 /HPF (0-FEW) White Blood Count 12.0 x10^3/uL (4.0-11.0) Red Blood Count 5.91 x10^6/uL (3.50-5.40) Hemoglobin 17.3 g/dL (12.0-15.5) Hematocrit 51.5 % (36.0-47.0) Mean Corpuscular Volume 87 fL (79-100) Mean Corpuscular Hemoglobin 29 pg (25-35) Mean Corpuscular Hemoglobin Concent 34 g/dL (31-37) Red Cell Distribution Width 14.8 % (11.5-14.5) Platelet Count 241 x10^3/uL (140-400) Neutrophils (%) (Auto) 77 % (31-73) Lymphocytes (%) (Auto) 17 % (24-48) Monocytes (%) (Auto) 6 % (0-9) Eosinophils (%) (Auto) 0 % (0-3) Basophils (%) (Auto) 0 % (0-3) Neutrophils # (Auto) 9.2 x10^3uL (1.8-7.7) Lymphocytes # (Auto) 2.0 x10^3/uL (1.0-4.8) Monocytes # (Auto) 0.7 x10^3/uL (0.0-1.1) Eosinophils # (Auto) 0.0 x10^3/uL (0.0-0.7) Basophils # (Auto) 0.0 x10^3/uL (0.0-0.2) Sodium Level 140 mmol/L (136-145) Potassium Level 3.2 mmol/L (3.5-5.1) Chloride Level 99 mmol/L (98-107) Carbon Dioxide Level 24 mmol/L (21-32) Anion Gap 17 (6-14) Blood Urea Nitrogen 12 mg/dL (7-20) Creatinine 1.1 mg/dL (0.6-1.0) Estimated GFR (Cockcroft-Gault) 62.4 BUN/Creatinine Ratio 11 (6-20) Glucose Level 144 mg/dL (70-99) Calcium Level 11.2 mg/dL (8.5-10.1) Magnesium Level 2.0 mg/dL (1.8-2.4) Total Bilirubin 1.1 mg/dL (0.2-1.0) Aspartate Amino Transf (AST/SGOT) 23 U/L (15-37) Alanine Aminotransferase (ALT/SGPT) 27 U/L (14-59) Alkaline Phosphatase 104 U/L (46-116) Troponin I Quantitative < 0.017 ng/mL (0.000-0.055) Total Protein 10.1 g/dL (6.4-8.2) Albumin 5.2 g/dL (3.4-5.0) Albumin/Globulin Ratio 1.1 (1.0-1.7) Laboratory Tests Test 03/26/19 12:50 03/26/19 13:35 03/26/19 13:50 Gastric Fluid Occult Blood Positive (NEG) Urine Color Yellow Urine Clarity Clear Urine pH 8.0 Urine Specific [place] 1.010 Urine Protein 100 mg/dL (NEG-TRACE) Urine Glucose (UA) 100 mg/dL (NEG) Urine Ketones (Stick) Trace mg/dL (NEG) Urine Blood Small (NEG) Urine Nitrite Negative (NEG) Urine Bilirubin Negative (NEG) Urine Urobilinogen Dipstick 0.2 mg/dL (0.2 mg/dL) Urine Leukocyte Esterase Negative (NEG) Urine RBC 1-2 /HPF (0-2) Urine WBC Occ /HPF (0-4) Urine Squamous Epithelial Cells Occ /LPF Urine Bacteria 0 /HPF (0-FEW) White Blood Count 12.0 x10^3/uL (4.0-11.0) Red Blood Count 5.91 x10^6/uL (3.50-5.40) Hemoglobin 17.3 g/dL (12.0-15.5) Hematocrit 51.5 % (36.0-47.0) Mean Corpuscular Volume 87 fL (79-100) Mean Corpuscular Hemoglobin 29 pg (25-35) Mean Corpuscular Hemoglobin Concent 34 g/dL (31-37) Red Cell Distribution Width 14.8 % (11.5-14.5) Platelet Count 241 x10^3/uL (140-400) Neutrophils (%) (Auto) 77 % (31-73) Lymphocytes (%) (Auto) 17 % (24-48) Monocytes (%) (Auto) 6 % (0-9) Eosinophils (%) (Auto) 0 % (0-3) Basophils (%) (Auto) 0 % (0-3) Neutrophils # (Auto) 9.2 x10^3uL (1.8-7.7) Lymphocytes # (Auto) 2.0 x10^3/uL (1.0-4.8) Monocytes # (Auto) 0.7 x10^3/uL (0.0-1.1) Eosinophils # (Auto) 0.0 x10^3/uL (0.0-0.7) Basophils # (Auto) 0.0 x10^3/uL (0.0-0.2) Sodium Level 140 mmol/L (136-145) Potassium Level 3.2 mmol/L (3.5-5.1) Chloride Level 99 mmol/L (98-107) Carbon Dioxide Level 24 mmol/L (21-32) Anion Gap 17 (6-14) Blood Urea Nitrogen 12 mg/dL (7-20) Creatinine 1.1 mg/dL (0.6-1.0) Estimated GFR (Cockcroft-Gault) 62.4 BUN/Creatinine Ratio 11 (6-20) Glucose Level 144 mg/dL (70-99) Calcium Level 11.2 mg/dL (8.5-10.1) Magnesium Level 2.0 mg/dL (1.8-2.4) Total Bilirubin 1.1 mg/dL (0.2-1.0) Aspartate Amino Transf (AST/SGOT) 23 U/L (15-37) Alanine Aminotransferase (ALT/SGPT) 27 U/L (14-59) Alkaline Phosphatase 104 U/L (46-116) Troponin I Quantitative < 0.017 ng/mL (0.000-0.055) Total Protein 10.1 g/dL (6.4-8.2) Albumin 5.2 g/dL (3.4-5.0) Albumin/Globulin Ratio 1.1 (1.0-1.7) VTE Prophylaxis Ordered VTE Prophylaxis Devices: No VTE Pharmacological Prophylaxi: No Assessment/Plan Assessment/Plan SIRS accelerated hypertension acute abdominal pain , GERD exac polycythemia hypokalemia dehydration, from pain and nausea and poor PO intake, , IV fluid BENJAMÍN DOBBINS MD Mar 26, 2019 19:50
[2019-03-26] MEDS: HYDROcodone/APAP 5/325MG 1 TAB TABLET PO PRN (20:59)
[2019-03-26] MEDS: PROMETHAZINE 12.5 MG SUPP.RECT. RC SCH (20:59)
[2019-03-26] MEDS ORDERED: CYCLOBENZAPRINE 10 MG TABLET. PO SCH (21:00)
[2019-03-26] MEDS ORDERED: ATORVASTATIN CALCIUM 10 MG TABLET. PO SCH (21:00)
[2019-03-26] MEDS: LABETALOL HCL 100 MG TABLET. PO SCH (21:04)
[2019-03-26 23:00] VITALS: BP 127/74
[2019-03-27 03:00] VITALS: BP 103/82
[2019-03-27 05:33] LABS: BASO % 0 % (0-3); EOS % 0 % (0-3); HEMATOCRIT 44.5 % (36.0-47.0); HEMOGLOBIN 14.7 g/dL (12.0-15.5); LYMPH # 3.2 x10^3/uL (1.0-4.8); LYMPH % 30 % (24-48); MEAN CORPUSCULAR HEMOGLOBIN 29 pg (25-35); MEAN CORPUSCULAR HGB CONC 33 g/dL (31-37); MEAN CORPUSCULAR VOLUME 87 fL (79-100); MONO # 1.1 x10^3/uL (0.0-1.1); MONO % 10 % (0-9); NEUT # 6.3 x10^3uL (1.8-7.7); NEUT % 59 % (31-73); PLATELET COUNT 200 x10^3/uL (140-400); RED BLOOD COUNT 5.11 x10^6/uL (3.50-5.40); RED CELL DISTRIBUTION WIDTH 14.8 % (11.5-14.5); WHITE BLOOD COUNT 10.6 x10^3/uL (4.0-11.0)
[2019-03-27 05:44] LABS: CALCIUM 9.2 mg/dL (8.5-10.1); CREATININE 1.7 mg/dL (0.6-1.0); GFR 37.8; POTASSIUM 3.4 mmol/L (3.5-5.1)
[2019-03-27 07:00] VITALS: BP 118/76
[2019-03-27] MEDS ORDERED: PANTOPRAZOLE 40 MG TABLET.DR. PO SCH (07:30)
--- NOTE | 2019-03-27 07:31 | PDOC2 ---
CONSULT Date of Consult Date of Consult DATE: 03/27/19 TIME: 07:24 Reason for consultation: Erythrocytosis Consult: Hematology oncology, Dr. Jerry Clayton History of present illness: Patient is a 54-year-old female, admitted with hypertension and abdominal pain and concern for coffee-ground emesis. We were consulted for erythrocytosis, acutely noted, moderate, hemoglobin was up to 17.3 on admit, it worse worsened due to volume depletion with emesis, it has improved with IV hydration to normal at 14.7 today, and is associated with normal platelet count and white count of 10,000. She also had high calcium, and albumin, but has improved as well with fluids. GI is involved. Past medical history: Gastroparesis Hypertension with noncompliance Hyperlipidemia GERD Anxiety and depression Rheumatoid arthritis History of "H. pylori ulcer" Past surgical history: EGD Colonoscopy Allergies: Penicillin Medications: See attached list Social history: Occasional marijuana Family history: Heart disease and diabetes Review of systems: She's had a little weight loss recently, does have nausea intermittently for which a liquid diet helps, numbness and tingling associated with high blood pressure, otherwise as of this morning the rest of 10 point review of systems was negative Physical exam: Vitals reviewed Gen.: Thin -[place] female resting in bed in no acute distress HEENT: mucous membranes moist, head normocephalic atraumatic Neck: Supple, no lymphadenopathy Lymph nodes: No palpable lymphadenopathy neck or axilla Lungs: Breathing comfortably, no evidence of respiratory distress Heart: Regular rate and rhythm Abdomen: Soft, nontender, nondistended Extremities: No cyanosis or significant edema Skin: No obvious rashes or skin breakdown Neuro: Alert and oriented 3 Psych: Normal mood and affect Lab reviewed: Today hemoglobin improved to 14.7, platelet count of 200,000, white count of 10.6, creatinine of 1.7, calcium of 9.2, iron of 84, TIBC of 435, iron sat of 19% T bili of 1.1 LDH normal Troponin negative Urinalysis was small blood, 1-2 red blood cells, gastric occult positive CBC from May 2018 showed a white count of 8.1, hemoglobin of 12.4, and platelet count of 100,000 Rads reviewed: CT chest abdomen and pelvis without contrast in May 2017 showed no acute abnormality with atheromatous aortic calcification without aneurysm Case discussed with: Patient, records reviewed in [facility], including labs and radiology, please see note for summary details. Assessment and Plan: She is a 54-year-old female admitted with abdominal pain and concern for coffee-ground emesis with erythrocytosis. Erythrocytosis: Much improved with hydration, normal today, do not think further workup with erythropoietin level or Alex 2 mutation testing needed at this time, can reconsider if hemoglobin rises again with volume replete Renal insufficiency: Per primary Concern for coffee-ground emesis: GI is involved, she is on a proton pump inhibitor Disposition: After continued clinical improvement Thank you kindly for this consultation, and please do not hesitate to call with any further questions. Past Medical History Cardiovascular: HTN, Hyperlipidemia Pulmonary: No pertinent hx GI: GERD, Other Hepatobiliary: No pertinent hx Psych: Anxiety, Depression Rheumatologic: Rheumatoid arthritis Infectious disease: No pertinent hx Renal/: No pertinent hx Endocrine: No pertinent hx Past Surgical History Past Surgical History: Other Family History Family History: Diabetes, Heart Disease Social History No ALCOHOL: none Drugs: Marijuana Lives: with Family Current Problem List Problem List Problems Medical Problems: (1) Essential hypertension Status: Acute (2) Hematemesis Status: Acute (3) Upper GI bleed Status: Acute (4) Vomiting Status: Acute Current Medications Current Medications Current Medications Sodium Chloride 1,000 ml @ 1,000 mls/hr 1X ONCE IV Last administered on 03/26/19 13:39; Start 03/26/19 at 12:45; Stop 03/26/19 at 13:44; Status DC Ondansetron HCl (Zofran) 4 mg 1X ONCE IV Last administered on 03/26/19 13:39; Start 03/26/19 at 12:45; Stop 03/26/19 at 12:46; Status DC Morphine Sulfate (Morphine Sulfate) 4 mg 1X ONCE IV Last administered on 03/26/19 13:39; Start 03/26/19 at 13:00; Stop 03/26/19 at 13:01; Status DC Pantoprazole Sodium (PROTONIX VIAL for IV PUSH) 80 mg 1X ONCE IVP Last administered on 03/26/19 13:39; Start 03/26/19 at 13:00; Stop 03/26/19 at 13:01; Status DC Morphine Sulfate (Morphine Sulfate) 4 mg 1X ONCE IV Last administered on 03/26/19at 15:11; Start 03/26/19 at 14:30; Stop 03/26/19 at 14:31; Status DC Hydralazine HCl (Apresoline Inj) 10 mg 1X ONCE IVP Last administered on 03/26/19at 15:12; Start 03/26/19 at 14:30; Stop 03/26/19 at 14:31; Status DC Pantoprazole Sodium 80 mg/ Sodium Chloride 100 ml @ 10 mls/hr 1X ONCE IV Last administered on 03/26/19at 15:15; Start 03/26/19 at 14:45; Stop 03/27/19 at 00:44; Status DC Amlodipine Besylate (Norvasc) 10 mg DAILY PO ; Start 03/27/19 at 09:00 Atorvastatin Calcium (Lipitor) 10 mg QHS PO Last administered on 03/26/19at 20:57; Start 03/26/19 at 21:00 Cyclobenzaprine HCl (Flexeril) 10 mg QHS PO Last administered on 03/26/19 20:57; Start 03/26/19 at 21:00 Gabapentin (Neurontin) 300 mg TID PO Last administered on 03/26/19 20:57; Start 03/26/19 at 16:00 Acetaminophen/ Hydrocodone Bitart (Lortab 5/325) 1 tab PRN Q4HRS PRN PO PAIN Last administered on 03/26/19at 20:59; Start 03/26/19 at 15:45 Hydroxyzine HCl (Atarax) 50 mg PRN Q6HRS PRN PO ITCHING; Start 03/26/19 at 15:45 Ondansetron HCl (Zofran Odt) 4 mg PRN Q8HRS PRN PO nausea; Start 03/26/19 at 15:45 Potassium Chloride (Klor-Con) 10 meq DAILYBFRSUP PO ; Start 03/26/19 at 17:00; Stop 03/26/19 at 17:25; Status DC Promethazine HCl (Phenergan Supp) 12.5 mg BID RC ; Start 03/26/19 at 21:00 Labetalol HCl (Trandate) 100 mg BID PO Last administered on 03/26/19at 21:04; Start 03/26/19 at 21:00 Pantoprazole Sodium (Protonix) 40 mg DAILYAC PO ; Start 03/27/19 at 07:30 Sertraline HCl (Zoloft) 100 mg DAILY PO ; Start 03/27/19 at 09:00 Sucralfate (Carafate) 1 gm QIDACHS PO Last administered on 03/26/19at 20:57; Start 03/26/19 at 16:30 Potassium Chloride (Klor-Con) 40 meq 1X ONCE PO ; Start 03/26/19 at 16:00; Stop 03/26/19 at 16:01; Status Cancel Multi-Ingredient Mouthwash/Gargle (Gi Cocktail) 20 ml PRN Q4HRS PRN SWSW abd pain Last administered on 03/26/19 17:35; Start 03/26/19 at 15:45 Morphine Sulfate (Morphine Sulfate) 4 mg PRN Q2HRS PRN IV pain Last administered on 03/26/19 17:36; Start 03/26/19 at 16:00 Potassium Chloride/Dextrose/ Sod Cl 1,000 ml @ 100 mls/hr 1X ONCE IV Last administered on 03/26/19at 17:35; Start 03/26/19 at 16:00; Stop 03/27/19 at 01:59; Status DC Nicotine (Nicoderm Cq 14mg) 1 patch PRN DAILY PRN TD SMOKING CESSATION; Start 03/26/19 at 16:00 Nicotine Polacrilex (Nicorette Gum) 1 each PRN Q1HR PRN BC SMOKING CESSATION; Start 03/26/19 at 16:00 Labetalol HCl (Normodyne Iv Push) 10 mg 1X ONCE IVP Last administered on 03/26/19at 16:30; Start 03/26/19 at 16:30; Stop 03/26/19 at 16:32; Status DC Metoclopramide HCl (Reglan Vial) 10 mg QIDACHS IV Last administered on 03/26/19at 21:00; Start 03/26/19 at 17:30 Potassium Chloride (Klor-Con) 10 meq DAILYBFRSUP PO Last administered on 03/26/19at 20:57; Start 03/26/19 at 20:00 Active Scripts Active Zofran (Ondansetron Hcl) 4 Mg Tablet 1 Tab PO Q6HRS Labetalol Hcl 100 Mg Tablet 100 Mg PO BID Hydrocodone-Apap 5-325 (Hydrocodone Bit/Acetaminophen) 1 Tab Tablet 1 Tab PO PRN Q4HRS PRN Carafate (Sucralfate) 1 Gm Tablet 1 Tab PO QID Omeprazole 20 Mg Tablet.dr 20 Mg PO BID Potassium Chloride 10 Meq Tablet.er 10 Meq PO DAILYBFRSUP 7 Days Zofran Odt (Ondansetron) 4 Mg Tab.rapdis 1 Tab SL Q8HRS Phenergan (Promethazine HCl) 12.5 Mg Supp.rect 12.5 Mg RC BID 5 Days Reported Hydroxyzine Hcl 25 Mg Tablet 50 Mg PO PRN Q6HRS PRN Zoloft (Sertraline Hcl) 100 Mg Tablet 1 Tab PO DAILY Prochlorperazine Maleate 5 Mg Tablet 5 Mg PO PRN TID PRN Cyclobenzaprine Hcl 10 Mg Tablet 1 Tab PO QHS Amlodipine Besylate 10 Mg Tablet 10 Mg PO DAILY Gabapentin 300 Mg Capsule 300 Mg PO TID Atorvastatin Calcium 10 Mg Tablet 1 Tab PO DAILY Allergies Allergies: Coded Allergies: Penicillins (Verified Allergy, Intermediate, 12/01/16) Vitals VITALS Vital Signs Date Time Temp Pulse Resp B/P (MAP) Pulse Ox O2 Delivery O2 Flow Rate FiO2 03/27/19 03:00 98.3 63 20 103/82 (89) 98 Room Air 98.3 Labs Labs Laboratory Tests Test 03/26/19 12:50 03/26/19 13:35 03/26/19 13:50 03/27/19 05:00 Gastric Fluid Occult Blood Positive (NEG) Urine Color Yellow Urine Clarity Clear Urine pH 8.0 Urine Specific [place] 1.010 Urine Protein 100 mg/dL (NEG-TRACE) Urine Glucose (UA) 100 mg/dL (NEG) Urine Ketones (Stick) Trace mg/dL (NEG) Urine Blood Small (NEG) Urine Nitrite Negative (NEG) Urine Bilirubin Negative (NEG) Urine Urobilinogen Dipstick 0.2 mg/dL (0.2 mg/dL) Urine Leukocyte Esterase Negative (NEG) Urine RBC 1-2 /HPF (0-2) Urine WBC Occ /HPF (0-4) Urine Squamous Epithelial Cells Occ /LPF Urine Bacteria 0 /HPF (0-FEW) White Blood Count 12.0 x10^3/uL (4.0-11.0) 10.6 x10^3/uL (4.0-11.0) Red Blood Count 5.91 x10^6/uL (3.50-5.40) 5.10 x10^6/uL (3.50-5.70) Hemoglobin 17.3 g/dL (12.0-15.5) 14.7 g/dL (12.0-15.5) Hematocrit 51.5 % (36.0-47.0) 44.5 % (36.0-47.0) Mean Corpuscular Volume 87 fL (79-100) 87 fL (79-100) Mean Corpuscular Hemoglobin 29 pg (25-35) 29 pg (25-35) Mean Corpuscular Hemoglobin Concent 34 g/dL (31-37) 33 g/dL (31-37) Red Cell Distribution Width 14.8 % (11.5-14.5) 14.8 % (11.5-14.5) Platelet Count 241 x10^3/uL (140-400) 200 x10^3/uL (140-400) Neutrophils (%) (Auto) 77 % (31-73) 59 % (31-73) Lymphocytes (%) (Auto) 17 % (24-48) 30 % (24-48) Monocytes (%) (Auto) 6 % (0-9) 10 % (0-9) Eosinophils (%) (Auto) 0 % (0-3) 0 % (0-3) Basophils (%) (Auto) 0 % (0-3) 0 % (0-3) Neutrophils # (Auto) 9.2 x10^3uL (1.8-7.7) 6.3 x10^3uL (1.8-7.7) Lymphocytes # (Auto) 2.0 x10^3/uL (1.0-4.8) 3.2 x10^3/uL (1.0-4.8) Monocytes # (Auto) 0.7 x10^3/uL (0.0-1.1) 1.1 x10^3/uL (0.0-1.1) Eosinophils # (Auto) 0.0 x10^3/uL (0.0-0.7) 0.0 x10^3/uL (0.0-0.7) Basophils # (Auto) 0.0 x10^3/uL (0.0-0.2) 0.0 x10^3/uL (0.0-0.2) Sodium Level 140 mmol/L (136-145) 137 mmol/L (136-145) Potassium Level 3.2 mmol/L (3.5-5.1) 3.4 mmol/L (3.5-5.1) Chloride Level 99 mmol/L (98-107) 99 mmol/L (98-107) Carbon Dioxide Level 24 mmol/L (21-32) 24 mmol/L (21-32) Anion Gap 17 (6-14) 14 (6-14) Blood Urea Nitrogen 12 mg/dL (7-20) 17 mg/dL (7-20) Creatinine 1.1 mg/dL (0.6-1.0) 1.7 mg/dL (0.6-1.0) Estimated GFR (Cockcroft-Gault) 62.4 37.8 BUN/Creatinine Ratio 11 (6-20) Glucose Level 144 mg/dL (70-99) 112 mg/dL (70-99) Calcium Level 11.2 mg/dL (8.5-10.1) 9.2 mg/dL (8.5-10.1) Magnesium Level 2.0 mg/dL (1.8-2.4) Total Bilirubin 1.1 mg/dL (0.2-1.0) Aspartate Amino Transf (AST/SGOT) 23 U/L (15-37) Alanine Aminotransferase (ALT/SGPT) 27 U/L (14-59) Alkaline Phosphatase 104 U/L (46-116) Troponin I Quantitative < 0.017 ng/mL (0.000-0.055) Total Protein 10.1 g/dL (6.4-8.2) Albumin 5.2 g/dL (3.4-5.0) Albumin/Globulin Ratio 1.1 (1.0-1.7) Absolute Reticulocyte Count 0.072 x10^6/uL (0.020-0.120) Percent Reticulocyte Count 1.4 % (0.5-2.3) Immature Reticulocyte Fraction 0.45 (0.20-0.60) Iron Level 84 ug/dL (50-170) Total Iron Binding Capacity 435 ug/dL (250-450) Iron Saturation 19 % (15-34) Lactate Dehydrogenase 208 U/L (81-234) Laboratory Tests Test 03/26/19 12:50 03/26/19 13:35 03/26/19 13:50 03/27/19 05:00 Gastric Fluid Occult Blood Positive (NEG) Urine Color Yellow Urine Clarity Clear Urine pH 8.0 Urine Specific [place] 1.010 Urine Protein 100 mg/dL (NEG-TRACE) Urine Glucose (UA) 100 mg/dL (NEG) Urine Ketones (Stick) Trace mg/dL (NEG) Urine Blood Small (NEG) Urine Nitrite Negative (NEG) Urine Bilirubin Negative (NEG) Urine Urobilinogen Dipstick 0.2 mg/dL (0.2 mg/dL) Urine Leukocyte Esterase Negative (NEG) Urine RBC 1-2 /HPF (0-2) Urine WBC Occ /HPF (0-4) Urine Squamous Epithelial Cells Occ /LPF Urine Bacteria 0 /HPF (0-FEW) White Blood Count 12.0 x10^3/uL (4.0-11.0) 10.6 x10^3/uL (4.0-11.0) Red Blood Count 5.91 x10^6/uL (3.50-5.40) 5.10 x10^6/uL (3.50-5.70) Hemoglobin 17.3 g/dL (12.0-15.5) 14.7 g/dL (12.0-15.5) Hematocrit 51.5 % (36.0-47.0) 44.5 % (36.0-47.0) Mean Corpuscular Volume 87 fL (79-100) 87 fL (79-100) Mean Corpuscular Hemoglobin 29 pg (25-35) 29 pg (25-35) Mean Corpuscular Hemoglobin Concent 34 g/dL (31-37) 33 g/dL (31-37) Red Cell Distribution Width 14.8 % (11.5-14.5) 14.8 % (11.5-14.5) Platelet Count 241 x10^3/uL (140-400) 200 x10^3/uL (140-400) Neutrophils (%) (Auto) 77 % (31-73) 59 % (31-73) Lymphocytes (%) (Auto) 17 % (24-48) 30 % (24-48) Monocytes (%) (Auto) 6 % (0-9) 10 % (0-9) Eosinophils (%) (Auto) 0 % (0-3) 0 % (0-3) Basophils (%) (Auto) 0 % (0-3) 0 % (0-3) Neutrophils # (Auto) 9.2 x10^3uL (1.8-7.7) 6.3 x10^3uL (1.8-7.7) Lymphocytes # (Auto) 2.0 x10^3/uL (1.0-4.8) 3.2 x10^3/uL (1.0-4.8) Monocytes # (Auto) 0.7 x10^3/uL (0.0-1.1) 1.1 x10^3/uL (0.0-1.1) Eosinophils # (Auto) 0.0 x10^3/uL (0.0-0.7) 0.0 x10^3/uL (0.0-0.7) Basophils # (Auto) 0.0 x10^3/uL (0.0-0.2) 0.0 x10^3/uL (0.0-0.2) Sodium Level 140 mmol/L (136-145) 137 mmol/L (136-145) Potassium Level 3.2 mmol/L (3.5-5.1) 3.4 mmol/L (3.5-5.1) Chloride Level 99 mmol/L (98-107) 99 mmol/L (98-107) Carbon Dioxide Level 24 mmol/L (21-32) 24 mmol/L (21-32) Anion Gap 17 (6-14) 14 (6-14) Blood Urea Nitrogen 12 mg/dL (7-20) 17 mg/dL (7-20) Creatinine 1.1 mg/dL (0.6-1.0) 1.7 mg/dL (0.6-1.0) Estimated GFR (Cockcroft-Gault) 62.4 37.8 BUN/Creatinine Ratio 11 (6-20) Glucose Level 144 mg/dL (70-99) 112 mg/dL (70-99) Calcium Level 11.2 mg/dL (8.5-10.1) 9.2 mg/dL (8.5-10.1) Magnesium Level 2.0 mg/dL (1.8-2.4) Total Bilirubin 1.1 mg/dL (0.2-1.0) Aspartate Amino Transf (AST/SGOT) 23 U/L (15-37) Alanine Aminotransferase (ALT/SGPT) 27 U/L (14-59) Alkaline Phosphatase 104 U/L (46-116) Troponin I Quantitative < 0.017 ng/mL (0.000-0.055) Total Protein 10.1 g/dL (6.4-8.2) Albumin 5.2 g/dL (3.4-5.0) Albumin/Globulin Ratio 1.1 (1.0-1.7) Absolute Reticulocyte Count 0.072 x10^6/uL (0.020-0.120) Percent Reticulocyte Count 1.4 % (0.5-2.3) Immature Reticulocyte Fraction 0.45 (0.20-0.60) Iron Level 84 ug/dL (50-170) Total Iron Binding Capacity 435 ug/dL (250-450) Iron Saturation 19 % (15-34) Lactate Dehydrogenase 208 U/L (81-234) JERRY CLAYTON MD Mar 27, 2019 07:31
[2019-03-27] MEDS: SUCRALFATE 1 GM TABLET. PO SCH ×2 (08:09→11:14)
[2019-03-27] MEDS: METOCLOPRAMIDE HCL 10 MG/2 ML VIAL. IV SCH (08:11)
[2019-03-27] MEDS ORDERED: amLODIPine BESYLATE 10 MG TABLET PO SCH (09:00)
[2019-03-27] MEDS ORDERED: SERTRALINE 50 MG TABLET. PO SCH (09:00)
[2019-03-27] MEDS: PROMETHAZINE 12.5 MG SUPP.RECT. RC SCH (09:00)
[2019-03-27] MEDS: LABETALOL HCL 100 MG TABLET. PO SCH (09:51)
[2019-03-27] MEDS: GABAPENTIN 300 MG CAPSULE. PO SCH (09:51)
[2019-03-27 11:00] VITALS: BP 124/92
--- NOTE | 2019-03-27 11:13 | PDOC ---
Subjective: Subjective: Feels much better. Says Dr. Veloz said she could go home. Not on Reglan at home. Objective: Vital Signs: Vital Signs Date Time Temp Pulse Resp B/P (MAP) Pulse Ox O2 Delivery O2 Flow Rate FiO2 03/27/19 09:51 70 118/76 03/27/19 08:19 Room Air 03/27/19 07:00 98.3 18 97 98.3 Labs: Laboratory Tests Test 03/26/19 12:50 03/26/19 13:35 03/26/19 13:50 03/27/19 05:00 Gastric Fluid Occult Blood Positive Urine Color Yellow Urine Clarity Clear Urine pH 8.0 Urine Specific [place] 1.010 Urine Protein 100 mg/dL Urine Glucose (UA) 100 mg/dL Urine Ketones (Stick) Trace mg/dL Urine Blood Small Urine Nitrite Negative Urine Bilirubin Negative Urine Urobilinogen Dipstick 0.2 mg/dL Urine Leukocyte Esterase Negative Urine RBC 1-2 /HPF Urine WBC Occ /HPF Urine Squamous Epithelial Cells Occ /LPF Urine Bacteria 0 /HPF White Blood Count 12.0 x10^3/uL 10.6 x10^3/uL Red Blood Count 5.91 x10^6/uL 5.10 x10^6/uL Hemoglobin 17.3 g/dL 14.7 g/dL Hematocrit 51.5 % 44.5 % Mean Corpuscular Volume 87 fL 87 fL Mean Corpuscular Hemoglobin 29 pg 29 pg Mean Corpuscular Hemoglobin Concent 34 g/dL 33 g/dL Red Cell Distribution Width 14.8 % 14.8 % Platelet Count 241 x10^3/uL 200 x10^3/uL Neutrophils (%) (Auto) 77 % 59 % Lymphocytes (%) (Auto) 17 % 30 % Monocytes (%) (Auto) 6 % 10 % Eosinophils (%) (Auto) 0 % 0 % Basophils (%) (Auto) 0 % 0 % Neutrophils # (Auto) 9.2 x10^3uL 6.3 x10^3uL Lymphocytes # (Auto) 2.0 x10^3/uL 3.2 x10^3/uL Monocytes # (Auto) 0.7 x10^3/uL 1.1 x10^3/uL Eosinophils # (Auto) 0.0 x10^3/uL 0.0 x10^3/uL Basophils # (Auto) 0.0 x10^3/uL 0.0 x10^3/uL Sodium Level 140 mmol/L 137 mmol/L Potassium Level 3.2 mmol/L 3.4 mmol/L Chloride Level 99 mmol/L 99 mmol/L Carbon Dioxide Level 24 mmol/L 24 mmol/L Anion Gap 17 14 Blood Urea Nitrogen 12 mg/dL 17 mg/dL Creatinine 1.1 mg/dL 1.7 mg/dL Estimated GFR (Cockcroft-Gault) 62.4 37.8 BUN/Creatinine Ratio 11 Glucose Level 144 mg/dL 112 mg/dL Calcium Level 11.2 mg/dL 9.2 mg/dL Magnesium Level 2.0 mg/dL Total Bilirubin 1.1 mg/dL Aspartate Amino Transf (AST/SGOT) 23 U/L Alanine Aminotransferase (ALT/SGPT) 27 U/L Alkaline Phosphatase 104 U/L Troponin I Quantitative < 0.017 ng/mL Total Protein 10.1 g/dL Albumin 5.2 g/dL Albumin/Globulin Ratio 1.1 Absolute Reticulocyte Count 0.072 x10^6/uL Percent Reticulocyte Count 1.4 % Immature Reticulocyte Fraction 0.45 Iron Level 84 ug/dL Total Iron Binding Capacity 435 ug/dL Iron Saturation 19 % Lactate Dehydrogenase 208 U/L PE: GEN: NAD - looks much better LUNGS: CTAB HEART: RRR ABD: NABS, S/ND/NT NEURO/PSYCH: A & O 3 A/P: Vomiting/"hematemesis," abd pain- resolved Uncontrolled HTN, non-compliance H/o GERD and gastroparesis -- Quick improvement of GI symptoms w/ improvement of BP as in the past. Plans for DC. Encouraged compliance. Would send on PPI and Reglan. ANDRES HOFFMAN Mar 27, 2019 11:13
--- NOTE | 2019-03-27 11:27 | DS ---
DATE OF DISCHARGE: 03/27/2019 DATE OF DISCHARGE: 03/27/2019. ADMISSION DIAGNOSIS: Gastrointestinal bleed. DISCHARGE DIAGNOSIS: Resolving gastrointestinal bleed. HOSPITAL COURSE: The patient is a pleasant middle-aged female who presented with some coffee-ground emesis. She was admitted. Her hemoglobin was actually stable at 17.3. We did consult GI. We continued her home proton pump inhibitors and Carafate. GI feels like this is not a meaningful GI bleeds that she could probably followup as an outpatient with her primary. PHYSICAL EXAMINATION: I saw and examined her this morning; HEART: Her heart tones were normal. LUNGS: Clear. ABDOMEN: Soft and nontender. EXTREMITIES: no edema. We plan to discharge. DISPOSITION: Home. ACTIVITY: As tolerated. DIET: Low sodium. MEDICATIONS: Please see the MRAD. TOTAL TIME: 34 minutes. WHIT CABA DO DR: SHELBY/lev JOB#: [id number] / [id number]
[2019-03-27] MEDS ORDERED: METOCLOPRAMIDE ORAL SOLN 10 MG/10 ML SOLUTION. PO SCH (11:30)
[2019-03-27] MEDS: HYDROcodone/APAP 5/325MG 1 TAB TABLET PO PRN (11:32)
--- NOTE | 2019-03-27 13:53 | NUR ---
Discharge Note: [facility] Discharge instructions and discharge home medications reviewed with patient and a copy given. All questions have been answered and understanding verbalized, and contact number for [address] [place] [id number] RN station given, in the event pt has questions at a later time. The following instructions and handouts were given:Gastroparesis, Non-specific abdominal pain, HTN. Discontinued lines and drains: pt's R hand peripheral IV discontinued, no bleeding or bruising, catheter tip intact. Pt taken out the ED entrance by this program writer via WC, to friend waiting in the parking lot. Pt walked to private vehicle, alert and oriented w/o symptoms at time of DC. Patient discharged to Home or Self Care with[facility] Wheelchair
== END 2019-03-27 13:30 | disposition home or self-care (01) | DRG 378 ==
LOC: ER 12:32 → 5 SOUTH 14:43
PROVIDERS: ADMIT Internal Medicine; ATTEND Internal Medicine
DX: K92.2 Gastrointestinal hemorrhage, unspecified (principal); R65.10 Systemic inflammatory response syndrome (SIRS) of non-infectious origin without acute organ dysfunction; K21.9 Gastro-esophageal reflux disease without esophagitis; E87.6 Hypokalemia; E86.0 Dehydration; E78.00 Pure hypercholesterolemia, unspecified; I10 Essential (primary) hypertension; D75.1 Secondary polycythemia; E78.5 Hyperlipidemia, unspecified; M06.9 Rheumatoid arthritis, unspecified; F12.90 Cannabis use, unspecified, uncomplicated; K31.84 Gastroparesis; F32.9 Major depressive disorder, single episode, unspecified; F41.9 Anxiety disorder, unspecified; Z88.0 Allergy status to penicillin; Z86.19 Personal history of other infectious and parasitic diseases; Z98.51 Tubal ligation status; Z91.19 Patient's noncompliance with other medical treatment and regimen; Z83.3 Family history of diabetes mellitus; Z82.49 Family history of ischemic heart disease and other diseases of the circulatory system
CPT/HCPCS: 36415; 80048; 80053; 81001; 82271; 83540; 83550; 83615; 83735; 84484; 85025; 85045; 86850; 86900; 86901; 96361; 96365; 96375; C9113; J0360; J2270; J2405; J2765; J3490; J7030; 99285-25

== ENCOUNTER 2019-04-08 14:36 | Inpatient (IN) | payer SELFPAY ==
[~2019-04-08] VITALS: Ht 170.2 cm; Wt 59.7 kg
[2019-04-08] MEDS ORDERED: IV NORMAL SALINE 1000ML BAG 1,000 ML IV ONE (15:15)
[2019-04-08] MEDS ORDERED: FAMOTIDINE 20 MG/2 ML VIAL IVP ONE (15:45)
[2019-04-08] MEDS ORDERED: ONDANSETRON PF 4 MG/2 ML VIAL. IV ONE (15:45)
[2019-04-08] MEDS ORDERED: DICYCLOMINE HCL 10 MG CAPSULE PO ONE (15:45)
[2019-04-08] MEDS ORDERED: LABETALOL 20 MG/4 ML DISP.SYRIN. IVP ONE ×2 (15:45→20:00)
[2019-04-08] MEDS ORDERED: cloNIDine HCL 0.1 MG TABLET PO ONE (15:45)
[2019-04-08 16:17] LABS: BASO # 0.1 x10^3/uL (0.0-0.2); BASO % 1 % (0-3); EOS % 0 % (0-3); HEMATOCRIT 50.9 % (36.0-47.0); HEMOGLOBIN 17.1 g/dL (12.0-15.5); LYMPH # 2.7 x10^3/uL (1.0-4.8); LYMPH % 28 % (24-48); MEAN CORPUSCULAR HEMOGLOBIN 29 pg (25-35); MEAN CORPUSCULAR HGB CONC 34 g/dL (31-37); MEAN CORPUSCULAR VOLUME 87 fL (79-100); MONO # 0.7 x10^3/uL (0.0-1.1); MONO % 7 % (0-9); NEUT # 6.3 x10^3/uL (1.8-7.7); NEUT % 64 % (31-73); PLATELET COUNT 234 x10^3/uL (140-400); RED BLOOD COUNT 5.85 x10^6/uL (3.50-5.40); RED CELL DISTRIBUTION WIDTH 14.8 % (11.5-14.5); WHITE BLOOD COUNT 9.9 x10^3/uL (4.0-11.0)
[2019-04-08 16:29] LABS: BILIRUBIN,URINE NEGATIVE (NEG); CLARITY,URINE CLEAR; COLOR,URINE YELLOW; NITRITE,URINE NEGATIVE (NEG); PROTEIN,URINE 100 mg/dL (NEG-TRACE); UROBILINOGEN,URINE 0.2 mg/dL (0.2 mg/dL)
[2019-04-08 16:36] LABS: BARBITURATES NEG (NEG); BENZODIAZEPINES NEG (NEG); CANNABINOIDS NEG (NEG); COCAINE NEG (NEG); METHADONE NEG (NEG); OPIATES NEG (NEG); PHENCYCLIDINE NEG (NEG)
[2019-04-08 16:37] LABS: AMPHETAMINE/METHAMPHETAMINE NEG (NEG)
[2019-04-08 16:43] LABS: BACTERIA,URINE 0 /HPF (0-FEW); SQUAMOUS EPITHELIAL CELL,UR OCC /LPF; WBC,URINE 0 /HPF (0-4)
[2019-04-08 17:19] LABS: CALCIUM 10.7 mg/dL (8.5-10.1); CREATININE 0.9 mg/dL (0.6-1.0); GFR 78.7; TOTAL BILIRUBIN 0.9 mg/dL (0.2-1.0)
[2019-04-08 17:21] LABS: POTASSIUM 2.7 mmol/L (3.5-5.1)
[2019-04-08] MEDS ORDERED: CONTRAST GIVEN. MC PRN (17:30)
[2019-04-08] MEDS ORDERED: IOHEXOL 300 MG/ML 100ML VIAL. IV ONE (17:30)
[2019-04-08] MEDS ORDERED: hydrALAZINE 20 MG/ML VIAL. IVP ONE (17:45)
[2019-04-08] MEDS ORDERED: POTASSIUM CHLORIDE 20 MEQ TABLET.ER. PO ONE (17:45)
--- NOTE | 2019-04-08 18:16 | RAD ---
INDICATION: Abdomen pain COMPARISON: May 2017 TECHNIQUE: Axial CT images obtained through the abdomen and pelvis with contrast. One or more of the following individualized dose reduction techniques were utilized for this examination: 1. Automated exposure control; 2. Adjustment of the mA and/or kV according to patient size; 3. Use of iterative reconstruction technique. FINDINGS: Calcific atherosclerosis without abdominal aortic aneurysm. No intrahepatic bile duct dilation. Small fat-containing umbilical hernia. The pancreas enhances appropriately. Spleen unremarkable. No hydronephrosis. Urinary bladder is partially distended. Portion of the colonic wall appears prominent in thickness including transverse and descending. Limited evaluation of the appendix secondary to multiple collapsed loops of bowel within the region without contrast within. Not definitely dilated in visualized portion but portions the appendix are obscured by this limitation. Degenerative changes the spine with multilevel central canal and neural foraminal stenosis. Soft tissue density within the pelvis. Could be the patient's uterus if there has been no evidence of hysterectomy. IMPRESSION: 1. No evidence of bowel obstruction. 2. Portions of the colon wall appears prominent in thickness however this is in a region of lack of distention therefore could be secondary to lack of distention however would correlate with symptoms to ensure that there is not a pathologic cause such as a mild colitis. 3. Wall of the urinary bladder appears mildly prominent in thickness. Could be from lack of distention but would correlate with symptoms in the region to ensure that there is not a pathologic process such as mild cystitis contributing. Electronically signed by: Yrn Lopez MD (04/08/2019 6:13 PM) [facility]
[2019-04-08] MEDS ORDERED: LIDO:MAALOX 1:1 20 ML SINGLE DOSE. SWSW ONE (18:30)
[2019-04-08] MEDS ORDERED: ENALAPRILAT 2.5 MG/2 ML VIAL. IVP ONE (18:30)
[2019-04-08] MEDS ORDERED: methylPREDNISolone SOD SUCC PF 125 MG/2 ML VIAL. IV ONE (18:30)
[2019-04-08] MEDS ORDERED: ONDANSETRON PF 4 MG/2 ML VIAL. IV PRN (18:30)
--- NOTE | 2019-04-08 18:30 | PHYS DOC ---
Past Medical History Past Medical History: Anxiety, Depression, GERD, High Cholesterol, Hypertension, P.U.D., URI, Other Additional Past Medical Histor: Gastroparesis (GAIL GUSMAN APRN) Past Surgical History: Tubal ligation, Other Additional Past Surgical Histo: foot surgery, explor. abd sx (GAIL GUSMAN APRN) Alcohol Use: None Drug Use: None (GAIL GUSMAN APRN) Adult General Chief Complaint Chief Complaint: ABDOMINAL PAIN HPI HPI Patient is a 54 year old female with history of uncontrolled hypertension, acid reflex with stomach ulcers, anxiety, who presents to the ED today complaining of 10 out of 10 mid abdominal pain with vomiting of blood that began at 6 AM this morning. Patient denies any diarrhea. Denies any fever. Denies any urgency frequency dysuria. Patient arrived in the ED requesting we put an IV in right away and give her something for pain. She is thrashing around the bed. (GAIL GUSMAN APRN) Review of Systems Review of Systems Constitutional: Denies fever or chills [] Eyes: Denies change in visual acuity, redness, or eye pain [] HENT: Denies nasal congestion or sore throat [] Respiratory: Denies cough or shortness of breath [] Cardiovascular: No additional information not addressed in HPI [] GI: Reports abdominal pain, vomiting blood, denies bloody stools or diarrhea [] : Denies dysuria or hematuria [] Musculoskeletal: Denies back pain or joint pain [] Integument: Denies rash or skin lesions [] Neurologic: Denies headache, focal weakness or sensory changes [] All other systems were reviewed and found to be within normal limits, except as documented in this note. (GAIL GUSMAN APRN) Current Medications Current Medications Current Medications Medications (Trade) Dose Ordered Sig/Emile Start Time Stop Time Status Last Admin Dose Admin Clonidine HCl (Catapres) 0.2 mg 1X ONCE 04/08/19 15:45 04/08/19 15:46 DC 04/08/19 15:31 0.2 MG Dicyclomine HCl (Bentyl) 20 mg 1X ONCE 04/08/19 15:45 04/08/19 15:46 DC 04/08/19 15:28 20 MG Famotidine (Pepcid Vial) 20 mg 1X ONCE 04/08/19 15:45 04/08/19 15:46 DC 04/08/19 15:32 20 MG Hydralazine HCl (Apresoline Inj) 10 mg 1X ONCE 04/08/19 17:45 04/08/19 17:46 DC 04/08/19 17:14 10 MG Info (CONTRAST GIVEN -- Rx MONITORING) 1 each PRN DAILY PRN 04/08/19 17:30 04/10/19 17:29 Iohexol (Omnipaque 300 Mg/ml) 75 ml 1X ONCE 04/08/19 17:30 04/08/19 17:31 DC 04/08/19 17:29 75 ML Labetalol HCl (Normodyne Iv Push) 10 mg 1X ONCE 04/08/19 15:45 04/08/19 15:46 DC 04/08/19 15:32 10 MG Ondansetron HCl (Zofran) 4 mg 1X ONCE 04/08/19 15:45 04/08/19 15:46 DC 04/08/19 15:32 4 MG Potassium Chloride (Klor-Con) 40 meq 1X ONCE 04/08/19 17:45 04/08/19 17:46 DC 04/08/19 17:55 40 MEQ Sodium Chloride 1,000 ml @ 1,000 mls/hr 1X ONCE 04/08/19 15:15 04/08/19 16:14 DC 04/08/19 15:15 1,000 MLS/HR (KATIE HOUSE DO) Allergies Allergies Allergies Coded Allergies Type Severity Reaction Last Updated Verified Penicillins Allergy Intermediate 12/01/16 Yes (KATIE HOUSE DO) Physical Exam Physical Exam Constitutional: Well developed, well nourished, no acute distress, non-toxic appearance. [] HENT: Normocephalic, atraumatic, bilateral external ears normal, oropharynx moist, no oral exudates, nose normal. [] Eyes: PERRLA, EOMI, conjunctiva normal, no discharge. [] Neck: Normal range of motion, no tenderness, supple, no stridor. [] Cardiovascular:Heart rate regular rhythm, no murmur [] Lungs & Thorax: Bilateral breath sounds clear to auscultation [] Abdomen: Old healed surgical incision noted midline abdomen. Bowel sounds normal, soft, tenderness diffusely to the mid abdomen, no point tenderness to the right upper quadrant or right lower quadrant no masses, no pulsatile masses. [] Skin: Warm, dry, no erythema, no rash. [] Back: No tenderness, no CVA tenderness. [] Extremities: No tenderness, no cyanosis, no clubbing, ROM intact, no edema. [] Neurologic: Alert and oriented X 3, normal motor function, normal sensory function, no focal deficits noted. 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) Current Patient Data Vital Signs Vital Signs Date Time Temp Pulse Resp B/P (MAP) Pulse Ox O2 Delivery O2 Flow Rate FiO2 04/08/19 18:06 82 14 210/121 (150) 98 Room Air 04/08/19 15:20 97.6 97.6 (HOUSEKATIE PAN DO) Lab Values Laboratory Tests Test 04/08/19 15:22 04/08/19 17:00 White Blood Count 9.9 x10^3/uL (4.0-11.0) Red Blood Count 5.85 x10^6/uL (3.50-5.40) H Hemoglobin 17.1 g/dL (12.0-15.5) H Hematocrit 50.9 % (36.0-47.0) H Mean Corpuscular Volume 87 fL (79-100) Mean Corpuscular Hemoglobin 29 pg (25-35) Mean Corpuscular Hemoglobin Concent 34 g/dL (31-37) Red Cell Distribution Width 14.8 % (11.5-14.5) H Platelet Count 234 x10^3/uL (140-400) Neutrophils (%) (Auto) 64 % (31-73) Lymphocytes (%) (Auto) 28 % (24-48) Monocytes (%) (Auto) 7 % (0-9) Eosinophils (%) (Auto) 0 % (0-3) Basophils (%) (Auto) 1 % (0-3) Neutrophils # (Auto) 6.3 x10^3/uL (1.8-7.7) Lymphocytes # (Auto) 2.7 x10^3/uL (1.0-4.8) Monocytes # (Auto) 0.7 x10^3/uL (0.0-1.1) Eosinophils # (Auto) 0.0 x10^3/uL (0.0-0.7) Basophils # (Auto) 0.1 x10^3/uL (0.0-0.2) Urine Collection Type Void Urine Color Yellow Urine Clarity Clear Urine pH 8.0 Urine Specific [place] 1.010 Urine Protein 100 mg/dL (NEG-TRACE) Urine Glucose (UA) Negative mg/dL (NEG) Urine Ketones (Stick) 15 mg/dL (NEG) Urine Blood Small (NEG) Urine Nitrite Negative (NEG) Urine Bilirubin Negative (NEG) Urine Urobilinogen Dipstick 0.2 mg/dL (0.2 mg/dL) Urine Leukocyte Esterase Negative (NEG) Urine RBC 3-5 /HPF (0-2) Urine WBC 0 /HPF (0-4) Urine Squamous Epithelial Cells Occ /LPF Urine Bacteria 0 /HPF (0-FEW) Urine Opiates Screen Neg (NEG) Urine Methadone Screen Neg (NEG) Urine Barbiturates Neg (NEG) Urine Phencyclidine Screen Neg (NEG) Urine Amphetamine/Methamphetamine Neg (NEG) Urine Benzodiazepines Screen Neg (NEG) Urine Cocaine Screen Neg (NEG) Urine Cannabinoids Screen Neg (NEG) Urine Ethyl Alcohol Neg (NEG) Sodium Level 138 mmol/L (136-145) Potassium Level 2.7 mmol/L (3.5-5.1) *L Chloride Level 99 mmol/L (98-107) Carbon Dioxide Level 22 mmol/L (21-32) Anion Gap 17 (6-14) H Blood Urea Nitrogen 11 mg/dL (7-20) Creatinine 0.9 mg/dL (0.6-1.0) Estimated GFR (Cockcroft-Gault) 78.7 BUN/Creatinine Ratio 12 (6-20) Glucose Level 133 mg/dL (70-99) H Calcium Level 10.7 mg/dL (8.5-10.1) H Total Bilirubin 0.9 mg/dL (0.2-1.0) Aspartate Amino Transferase (AST) 22 U/L (15-37) Alanine Aminotransferase (ALT) 20 U/L (14-59) Alkaline Phosphatase 103 U/L (46-116) Total Protein 10.0 g/dL (6.4-8.2) H Albumin 5.0 g/dL (3.4-5.0) Albumin/Globulin Ratio 1.0 (1.0-1.7) Lipase 70 U/L (73-393) L Thyroid Stimulating Hormone (TSH) 1.606 uIU/mL (0.358-3.74) Ethyl Alcohol Level < 10 mg/dL (0-10) Laboratory Tests 04/08/19 15:22 Laboratory Tests 04/08/19 17:00 (KATIE HOUSE Shaji COSTA) EKG EKG [] (GAIL GUSMAN APRN) Radiology/Procedures Radiology/Procedures []PROCEDURE: CT ABD PELV W/ IV CONTRST ONLY INDICATION: Abdomen pain COMPARISON: May 2017 TECHNIQUE: Axial CT images obtained through the abdomen and pelvis with contrast. One or more of the following individualized dose reduction techniques were utilized for this examination: 1. Automated exposure control; 2. Adjustment of the mA and/or kV according to patient size; 3. Use of iterative reconstruction technique. FINDINGS: Calcific atherosclerosis without abdominal aortic aneurysm. No intrahepatic bile duct dilation. Small fat-containing umbilical hernia. The pancreas enhances appropriately. Spleen unremarkable. No hydronephrosis. Urinary bladder is partially distended. Portion of the colonic wall appears prominent in thickness including transverse and descending. Limited evaluation of the appendix secondary to multiple collapsed loops of bowel within the region without contrast within. Not definitely dilated in visualized portion but portions the appendix are obscured by this limitation. Degenerative changes the spine with multilevel central canal and neural foraminal stenosis. Soft tissue density within the pelvis. Could be the patient's uterus if there has been no evidence of hysterectomy. IMPRESSION: 1. No evidence of bowel obstruction. 2. Portions of the colon wall appears prominent in thickness however this is in a region of lack of distention therefore could be secondary to lack of distention however would correlate with symptoms to ensure that there is not a pathologic cause such as a mild colitis. 3. Wall of the urinary bladder appears mildly prominent in thickness. Could be from lack of distention but would correlate with symptoms in the region to ensure that there is not a pathologic process such as mild cystitis contributing. Electronically signed by: Elian Vanessa MD (04/08/2019 6:13 PM) [facility] DICTATED and SIGNED BY: ELIAN VANESSA MD DATE: 04/08/191812 (GAIL GUSMAN APRN) Course & Med Decision Making Course & Med Decision Making Pertinent Labs and Imaging studies reviewed. (See chart for details) This is a 54-year-old female patient presented to the ED today complaining of abdominal pain and vomiting blood. Patient has history of a stomach ulcer. Patient arrived in the ED drug seeking, thrashing around in bed, pushing her correlate several times asking for pain medication. Patient informed would do a workup to see if there is anything acute going on but at this point we will try to hold on any narcotic medications. CBC with a normal WBC, hemoglobin 17.1, hematocrit 50.9, CMP with potassium of 2.7, patient was given oral potassium replacement and started on IV fluids with potassium. Blood pressure 224/134 over to the ED with a heart rate of 84. Patient has history of uncontrolled hypertension. Given labetalol IV, hydralazine IV, clonidine by mouth. Blood pressure 210/120. Patient continues to push a call light every few minutes asking for pain medicine. Consulted with Dr. Diaz who accepted patient for admission and requested Vasotec. GI consult placed. (GAIL GUSMAN APRN) Dragon Disclaimer Dragon Disclaimer This electronic medical record was generated, in whole or in part, using a voice recognition dictation system. 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 I was available for consultation as needed during the patient's visit in the emergency department. I agree with the clinical impression, plan, and disposition. (KATIE HOUSE DO) Problem Qualifiers Additional Impressions: Nausea and vomiting Vomiting type: unspecified Vomiting Intractability: unspecified Qualified Codes: R11.2 - Nausea with vomiting, unspecified Abdominal pain Abdominal location: unspecified location Qualified Codes: R10.9 - Unspecified abdominal pain GAIL GUSMAN APRN Apr 08, 2019 18:30 KATIE HOUSE DO Apr 09, 2019 02:23
[2019-04-08] MEDS: hydrALAZINE 20 MG/ML VIAL. IVP PRN (19:17)
--- NOTE | 2019-04-08 20:40 | NUR ---
Admit from ED via gurney. Alert. Restless. C/O abd pain. BP elevated. Orientated to room and call light. Reviewed POC to include Toradol for pain q6hrs ivp prn. Restless in bed. Call light at hand. Bed alarm on.
[2019-04-08 20:48] VITALS: BP 215/135
[2019-04-08 20:50] VITALS: BP 215/135
[2019-04-08] MEDS ORDERED: hydrOXYzine 25 MG TABLET PO PRN (21:15)
[2019-04-08] MEDS ORDERED: ONDANSETRON ODT 4 MG TAB.RAPDIS. PO PRN (21:15)
[2019-04-08 21:24] VITALS: BP 185/143
[2019-04-08] MEDS: KETOROLAC 30 MG/ML VIAL. IV PRN (21:26)
[2019-04-08] MEDS: ATORVASTATIN CALCIUM 10 MG TABLET. PO SCH (22:00)
[2019-04-08] MEDS: LABETALOL HCL 100 MG TABLET. PO SCH (22:00)
[2019-04-08] MEDS: CYCLOBENZAPRINE 10 MG TABLET. PO SCH (22:00)
[2019-04-08] MEDS ORDERED: POTASSIUM CL 40MEQ D5-0.45NACL 1,000 ML IV ONE (22:00)
[2019-04-08] MEDS: GABAPENTIN 300 MG CAPSULE. PO SCH (22:00)
--- NOTE | 2019-04-08 22:00 | NUR ---
BP remain elevated. Started Cardene drip at 5mg/hr. Continues to c/o abd pain. Dr Diaz at bedside to see patient.
[2019-04-08 22:01] VITALS: BP 167/102
--- NOTE | 2019-04-08 22:26 | PDOC1 ---
History and Physical Date of Admission Date of Admission DATE: 04/08/19 TIME: 22:18 Identification/Chief Complaint Chief Complaint Abdominal pain Source Source: Patient History of Present Illness History of Present Illness Ms Rajput is a 54yo F w/ PMHx Anxiety, Depression, GERD, High Cholesterol, Hypertension, PUD, Gastroparesis who presents to the ED today complaining of 10 out of 10 mid abdominal pain with vomiting of blood that began at 6 AM this morning. Patient denies any diarrhea. Denies any fever. She does note some confusion. Denies any urgency frequency dysuria. Patient arrived in the ED requesting we put an IV in right away and give her something for pain. She was thrashing around the bed. Hemoglobin 17.1, hematocrit 50.9, Potassium of 2.7, patient was given oral potassium replacement and started on IV fluids with potassium. Blood pressure 224/134 over to the ED with a heart rate of 84. Patient has history of uncontrolled hypertension. Given labetalol IV, hydralazine IV, clonid ine by mouth. Blood pressure 210/120. Given vasotec IV with minimal response. Called for admission to CVC on cardene GTT. Past Medical History Cardiovascular: HTN, Hyperlipidemia Pulmonary: No pertinent hx GI: GERD, Other Hepatobiliary: No pertinent hx Psych: Anxiety, Depression Rheumatologic: Rheumatoid arthritis Infectious disease: No pertinent hx Renal/: No pertinent hx Endocrine: No pertinent hx Past Surgical History Past Surgical History: Other Family History Family History: Diabetes, Heart Disease Social History ALCOHOL: none Drugs: Marijuana Current Problem List Problem List Problems Medical Problems: (1) Abdominal pain Status: Acute (2) Hypertensive emergency Status: Acute (3) Narcotic dependence Status: Acute (4) Nausea and vomiting Status: Acute Current Medications Current Medications Current Medications Clonidine HCl (Catapres) 0.2 mg 1X ONCE PO Last administered on 04/08/19at 15:31; Start 04/08/19 at 15:45; Stop 04/08/19 at 15:46; Status DC Dicyclomine HCl (Bentyl) 20 mg 1X ONCE PO Last administered on 04/08/19at 15:28; Start 04/08/19 at 15:45; Stop 04/08/19 at 15:46; Status DC Labetalol HCl (Normodyne Iv Push) 10 mg 1X ONCE IVP Last administered on 04/08/19at 15:32; Start 04/08/19 at 15:45; Stop 04/08/19 at 15:46; Status DC Famotidine (Pepcid Vial) 20 mg 1X ONCE IVP Last administered on 04/08/19at 15:32; Start 04/08/19 at 15:45; Stop 04/08/19 at 15:46; Status DC Ondansetron HCl (Zofran) 4 mg 1X ONCE IV Last administered on 04/08/19at 15:32; Start 04/08/19 at 15:45; Stop 04/08/19 at 15:46; Status DC Sodium Chloride 1,000 ml @ 1,000 mls/hr 1X ONCE IV Last administered on 04/08/19at 15:15; Start 04/08/19 at 15:15; Stop 04/08/19 at 16:14; Status DC Hydralazine HCl (Apresoline Inj) 10 mg 1X ONCE IVP Last administered on 04/08/19at 17:14; Start 04/08/19 at 17:45; Stop 04/08/19 at 17:46; Status DC Iohexol (Omnipaque 300 Mg/ml) 75 ml 1X ONCE IV Last administered on 04/08/19at 17:29; Start 04/08/19 at 17:30; Stop 04/08/19 at 17:31; Status DC Info (CONTRAST GIVEN -- Rx MONITORING) 1 each PRN DAILY PRN MC SEE COMMENTS; Start 04/08/19 at 17:30; Stop 04/10/19 at 17:29 Potassium Chloride (Klor-Con) 40 meq 1X ONCE PO Last administered on 04/08/19at 17:55; Start 04/08/19 at 17:45; Stop 04/08/19 at 17:46; Status DC Enalaprilat (Vasotec Inj) 2.5 mg 1X ONCE IVP Last administered on 04/08/19at 18:31; Start 04/08/19 at 18:30; Stop 04/08/19 at 18:31; Status DC Ondansetron HCl (Zofran) 4 mg PRN Q8HRS PRN IV NAUSEA/VOMITING; Start 04/08/19 at 18:30; Stop 04/08/19 at 21:10; Status DC Acetaminophen (Tylenol) 650 mg PRN Q4HRS PRN PO FEVER; Start 04/08/19 at 18:30; Stop 04/09/19 at 18:29 Methylprednisolone Sodium Succinate (SOLU-Medrol 125MG VIAL) 125 mg 1X ONCE IV Last administered on 04/08/19at 18:58; Start 04/08/19 at 18:30; Stop 04/08/19 at 18:40; Status DC Potassium Chloride/Sodium Chloride 1,000 ml @ 75 mls/hr 1X ONCE IV Last administered on 04/08/19at 19:00; Start 04/08/19 at 19:00; Stop 04/09/19 at 08:19 Multi-Ingredient Mouthwash/Gargle (Gi Cocktail) 20 ml 1X ONCE SWSW Last administered on 04/08/19at 18:57; Start 04/08/19 at 18:30; Stop 04/08/19 at 18:40; Status DC Hydralazine HCl (Apresoline Inj) 10 mg Q4HRS PRN IVP HYPERTENSION Last administered on 04/08/19at 19:17; Start 04/08/19 at 18:30 Labetalol HCl (Normodyne Iv Push) 20 mg 1X ONCE IVP Last administered on 04/08/19at 20:00; Start 04/08/19 at 20:00; Stop 04/08/19 at 20:01; Status DC Nicardipine HCl 50 mg/Sodium Chloride 250 ml @ 25 mls/hr CONT PRN IV SEE I/O RECORD Last administered on 04/08/19at 21:35; Start 04/08/19 at 21:00 Ondansetron HCl (Zofran) 4 mg PRN Q6HRS PRN IV NAUSEA/VOMITING 1ST CHOICE; Start 04/08/19 at 21:15 Ketorolac Tromethamine (Toradol 30mg Vial) 30 mg PRN Q6HRS PRN IV MODERATE PAIN 4-6 Last administered on 04/08/19at 21:26; Start 04/08/19 at 21:15; Stop 04/13/19 at 21:14 Amlodipine Besylate (Norvasc) 10 mg DAILY PO ; Start 04/09/19 at 09:00 Atorvastatin Calcium (Lipitor) 10 mg QHS PO ; Start 04/08/19 at 22:00 Cyclobenzaprine HCl (Flexeril) 10 mg QHS PO ; Start 04/08/19 at 22:00 Gabapentin (Neurontin) 300 mg TID PO ; Start 04/08/19 at 22:00 Hydroxyzine HCl (Atarax) 50 mg PRN Q6HRS PRN PO ITCHING; Start 04/08/19 at 21:15 Ondansetron HCl (Zofran Odt) 4 mg PRN Q6HRS PRN PO nausea 1ST CHOICE; Start 04/08/19 at 21:15 Potassium Chloride (Klor-Con) 10 meq DAILYBFRSUP PO ; Start 04/09/19 at 17:00 Promethazine HCl (Phenergan Supp) 12.5 mg BID RC ; Start 04/09/19 at 09:00 Labetalol HCl (Trandate) 100 mg BID PO ; Start 04/08/19 at 22:00 Pantoprazole Sodium (Protonix) 40 mg DAILYAC PO ; Start 04/09/19 at 07:30 Sertraline HCl (Zoloft) 100 mg DAILY PO ; Start 04/09/19 at 09:00 Sucralfate (Carafate) 1 gm QIDACHS PO ; Start 04/09/19 at 07:30 Potassium Chloride/Dextrose/ Sod Cl 1,000 ml @ 75 mls/hr 1X ONCE IV ; Start 04/08/19 at 22:00; Stop 04/09/19 at 11:19 Active Scripts Active Zofran (Ondansetron Hcl) 4 Mg Tablet 1 Tab PO Q6HRS Labetalol Hcl 100 Mg Tablet 100 Mg PO BID Hydrocodone-Apap 5-325 (Hydrocodone Bit/Acetaminophen) 1 Tab Tablet 1 Tab PO PRN Q4HRS PRN Carafate (Sucralfate) 1 Gm Tablet 1 Tab PO QID Omeprazole 20 Mg Tablet.dr 20 Mg PO BID Potassium Chloride 10 Meq Tablet.er 10 Meq PO DAILYBFRSUP 7 Days Zofran Odt (Ondansetron) 4 Mg Tab.rapdis 1 Tab SL Q8HRS Phenergan (Promethazine HCl) 12.5 Mg Supp.rect 12.5 Mg RC BID 5 Days Reported Hydroxyzine Hcl 25 Mg Tablet 50 Mg PO PRN Q6HRS PRN Zoloft (Sertraline Hcl) 100 Mg Tablet 1 Tab PO DAILY Prochlorperazine Maleate 5 Mg Tablet 5 Mg PO PRN TID PRN Cyclobenzaprine Hcl 10 Mg Tablet 1 Tab PO QHS Amlodipine Besylate 10 Mg Tablet 10 Mg PO DAILY Gabapentin 300 Mg Capsule 300 Mg PO TID Atorvastatin Calcium 10 Mg Tablet 1 Tab PO DAILY Allergies Allergies: Coded Allergies: Penicillins (Verified Allergy, Intermediate, 12/01/16) Vitals Vitals Vital Signs Date Time Temp Pulse Resp B/P (MAP) Pulse Ox O2 Delivery O2 Flow Rate FiO2 04/08/19 22:01 120 167/102 (123) 04/08/19 20:50 98.0 20 99 Room Air 98.0 Labs Labs Laboratory Tests Test 04/08/19 15:22 04/08/19 17:00 White Blood Count 9.9 x10^3/uL (4.0-11.0) Red Blood Count 5.85 x10^6/uL (3.50-5.40) Hemoglobin 17.1 g/dL (12.0-15.5) Hematocrit 50.9 % (36.0-47.0) Mean Corpuscular Volume 87 fL (79-100) Mean Corpuscular Hemoglobin 29 pg (25-35) Mean Corpuscular Hemoglobin Concent 34 g/dL (31-37) Red Cell Distribution Width 14.8 % (11.5-14.5) Platelet Count 234 x10^3/uL (140-400) Neutrophils (%) (Auto) 64 % (31-73) Lymphocytes (%) (Auto) 28 % (24-48) Monocytes (%) (Auto) 7 % (0-9) Eosinophils (%) (Auto) 0 % (0-3) Basophils (%) (Auto) 1 % (0-3) Neutrophils # (Auto) 6.3 x10^3/uL (1.8-7.7) Lymphocytes # (Auto) 2.7 x10^3/uL (1.0-4.8) Monocytes # (Auto) 0.7 x10^3/uL (0.0-1.1) Eosinophils # (Auto) 0.0 x10^3/uL (0.0-0.7) Basophils # (Auto) 0.1 x10^3/uL (0.0-0.2) Urine Collection Type Void Urine Color Yellow Urine Clarity Clear Urine pH 8.0 Urine Specific [place] 1.010 Urine Protein 100 mg/dL (NEG-TRACE) Urine Glucose (UA) Negative mg/dL (NEG) Urine Ketones (Stick) 15 mg/dL (NEG) Urine Blood Small (NEG) Urine Nitrite Negative (NEG) Urine Bilirubin Negative (NEG) Urine Urobilinogen Dipstick 0.2 mg/dL (0.2 mg/dL) Urine Leukocyte Esterase Negative (NEG) Urine RBC 3-5 /HPF (0-2) Urine WBC 0 /HPF (0-4) Urine Squamous Epithelial Cells Occ /LPF Urine Bacteria 0 /HPF (0-FEW) Urine Opiates Screen Neg (NEG) Urine Methadone Screen Neg (NEG) Urine Barbiturates Neg (NEG) Urine Phencyclidine Screen Neg (NEG) Urine Amphetamine/Methamphetamine Neg (NEG) Urine Benzodiazepines Screen Neg (NEG) Urine Cocaine Screen Neg (NEG) Urine Cannabinoids Screen Neg (NEG) Urine Ethyl Alcohol Neg (NEG) Sodium Level 138 mmol/L (136-145) Potassium Level 2.7 mmol/L (3.5-5.1) Chloride Level 99 mmol/L (98-107) Carbon Dioxide Level 22 mmol/L (21-32) Anion Gap 17 (6-14) Blood Urea Nitrogen 11 mg/dL (7-20) Creatinine 0.9 mg/dL (0.6-1.0) Estimated GFR (Cockcroft-Gault) 78.7 BUN/Creatinine Ratio 12 (6-20) Glucose Level 133 mg/dL (70-99) Calcium Level 10.7 mg/dL (8.5-10.1) Total Bilirubin 0.9 mg/dL (0.2-1.0) Aspartate Amino Transf (AST/SGOT) 22 U/L (15-37) Alanine Aminotransferase (ALT/SGPT) 20 U/L (14-59) Alkaline Phosphatase 103 U/L (46-116) Total Protein 10.0 g/dL (6.4-8.2) Albumin 5.0 g/dL (3.4-5.0) Albumin/Globulin Ratio 1.0 (1.0-1.7) Lipase 70 U/L (73-393) Ethyl Alcohol Level < 10 mg/dL (0-10) Laboratory Tests Test 04/08/19 15:22 04/08/19 17:00 White Blood Count 9.9 x10^3/uL (4.0-11.0) Red Blood Count 5.85 x10^6/uL (3.50-5.40) Hemoglobin 17.1 g/dL (12.0-15.5) Hematocrit 50.9 % (36.0-47.0) Mean Corpuscular Volume 87 fL (79-100) Mean Corpuscular Hemoglobin 29 pg (25-35) Mean Corpuscular Hemoglobin Concent 34 g/dL (31-37) Red Cell Distribution Width 14.8 % (11.5-14.5) Platelet Count 234 x10^3/uL (140-400) Neutrophils (%) (Auto) 64 % (31-73) Lymphocytes (%) (Auto) 28 % (24-48) Monocytes (%) (Auto) 7 % (0-9) Eosinophils (%) (Auto) 0 % (0-3) Basophils (%) (Auto) 1 % (0-3) Neutrophils # (Auto) 6.3 x10^3/uL (1.8-7.7) Lymphocytes # (Auto) 2.7 x10^3/uL (1.0-4.8) Monocytes # (Auto) 0.7 x10^3/uL (0.0-1.1) Eosinophils # (Auto) 0.0 x10^3/uL (0.0-0.7) Basophils # (Auto) 0.1 x10^3/uL (0.0-0.2) Urine Collection Type Void Urine Color Yellow Urine Clarity Clear Urine pH 8.0 Urine Specific [place] 1.010 Urine Protein 100 mg/dL (NEG-TRACE) Urine Glucose (UA) Negative mg/dL (NEG) Urine Ketones (Stick) 15 mg/dL (NEG) Urine Blood Small (NEG) Urine Nitrite Negative (NEG) Urine Bilirubin Negative (NEG) Urine Urobilinogen Dipstick 0.2 mg/dL (0.2 mg/dL) Urine Leukocyte Esterase Negative (NEG) Urine RBC 3-5 /HPF (0-2) Urine WBC 0 /HPF (0-4) Urine Squamous Epithelial Cells Occ /LPF Urine Bacteria 0 /HPF (0-FEW) Urine Opiates Screen Neg (NEG) Urine Methadone Screen Neg (NEG) Urine Barbiturates Neg (NEG) Urine Phencyclidine Screen Neg (NEG) Urine Amphetamine/Methamphetamine Neg (NEG) Urine Benzodiazepines Screen Neg (NEG) Urine Cocaine Screen Neg (NEG) Urine Cannabinoids Screen Neg (NEG) Urine Ethyl Alcohol Neg (NEG) Sodium Level 138 mmol/L (136-145) Potassium Level 2.7 mmol/L (3.5-5.1) Chloride Level 99 mmol/L (98-107) Carbon Dioxide Level 22 mmol/L (21-32) Anion Gap 17 (6-14) Blood Urea Nitrogen 11 mg/dL (7-20) Creatinine 0.9 mg/dL (0.6-1.0) Estimated GFR (Cockcroft-Gault) 78.7 BUN/Creatinine Ratio 12 (6-20) Glucose Level 133 mg/dL (70-99) Calcium Level 10.7 mg/dL (8.5-10.1) Total Bilirubin 0.9 mg/dL (0.2-1.0) Aspartate Amino Transf (AST/SGOT) 22 U/L (15-37) Alanine Aminotransferase (ALT/SGPT) 20 U/L (14-59) Alkaline Phosphatase 103 U/L (46-116) Total Protein 10.0 g/dL (6.4-8.2) Albumin 5.0 g/dL (3.4-5.0) Albumin/Globulin Ratio 1.0 (1.0-1.7) Lipase 70 U/L (73-393) Ethyl Alcohol Level < 10 mg/dL (0-10) VTE Prophylaxis Ordered VTE Prophylaxis Devices: Contraindicated VTE Pharmacological Prophylaxi: No Assessment/Plan Assessment/Plan A/P: Hypertensive emergency - admit to CVC on cardene GTT Acute encephalopathy - she is aware she is confused, no focal neuro deficits. With her BP coming down she feels improved. Acute abdominal pain - uncertain etiology, known well to GI service, will consult Hematemesis - with polycythemia. Will monitor CBC. No further vomiting Nausea and vomiting - intractable, will keep meds IV, zofran, compazine until able to take PO Hypokalemia - replace IV and po, check mag. AM cortisol level Dehydration - from pain and nausea and poor PO intake, , IV fluid Hypercalcemia - 10.7, will give IVF. Monitor, check phos, vitamin D levels Hyperglycemia - will check A1c, TSH FEN - General diet PPX - GI Bleed FULL CODE Inpatient CVC for hypertensive emergency, likely 2 midnights. REGULO CUEVA MD Apr 08, 2019 22:26
[2019-04-08 22:40] VITALS: BP 129/90
[2019-04-08 23:24] VITALS: BP 122/92
[2019-04-09] VITALS (15 sets, daily range): BP systolic 106–171; BP diastolic 64–113
[2019-04-09] MEDS: ONDANSETRON PF 4 MG/2 ML VIAL. IV PRN ×4 (01:49→22:12)
[2019-04-09] MEDS: PROMETHAZINE 12.5 MG SUPP.RECT. RC SCH ×3 (02:15→22:31)
--- NOTE | 2019-04-09 02:30 | NUR ---
Spoke to Dr Diaz. Reported patient's HR 140s, continues to c/o of abd pain and now lower back pain. Restless. Orders given for Metoprolol 5mg IVP x once.
[2019-04-09] MEDS ORDERED: METOPROLOL TARTRATE 5 MG/5 ML VIAL. IVP ONE (03:00)
[2019-04-09] MEDS: KETOROLAC 30 MG/ML VIAL. IV PRN ×3 (04:07→22:36)
[2019-04-09] MEDS: ACETAMINOPHEN 325 MG TABLET. PO PRN ×2 (04:48→09:45)
[2019-04-09 09:03] LABS: BASO # 0.1 x10^3/uL (0.0-0.2); BASO % 1 % (0-3); EOS % 0 % (0-3); HEMATOCRIT 47.3 % (36.0-47.0); HEMOGLOBIN 15.7 g/dL (12.0-15.5); LYMPH # 2.2 x10^3/uL (1.0-4.8); LYMPH % 16 % (24-48); MEAN CORPUSCULAR HEMOGLOBIN 29 pg (25-35); MEAN CORPUSCULAR HGB CONC 33 g/dL (31-37); MEAN CORPUSCULAR VOLUME 87 fL (79-100); MONO # 0.9 x10^3/uL (0.0-1.1); MONO % 6 % (0-9); NEUT # 10.8 x10^3/uL (1.8-7.7); NEUT % 78 % (31-73); PLATELET COUNT 199 x10^3/uL (140-400); RED BLOOD COUNT 5.43 x10^6/uL (3.50-5.40); RED CELL DISTRIBUTION WIDTH 14.9 % (11.5-14.5)
[2019-04-09 09:26] LABS: ALBUMIN 4.6 g/dL (3.4-5.0); CREATININE 1.5 mg/dL (0.6-1.0); GFR 43.6; MAGNESIUM 1.9 mg/dL (1.8-2.4); PHOSPHORUS 2.5 mg/dL (2.6-4.7); POTASSIUM 3.3 mmol/L (3.5-5.1); TOTAL BILIRUBIN 0.7 mg/dL (0.2-1.0)
[2019-04-09] MEDS: GABAPENTIN 300 MG CAPSULE. PO SCH ×3 (09:37→21:18)
[2019-04-09] MEDS: SUCRALFATE 1 GM TABLET. PO SCH ×4 (09:37→21:18)
[2019-04-09] MEDS: PANTOPRAZOLE 40 MG TABLET.DR. PO SCH (09:38)
[2019-04-09] MEDS: amLODIPine BESYLATE 10 MG TABLET PO SCH (09:38)
[2019-04-09] MEDS: LABETALOL HCL 100 MG TABLET. PO SCH ×2 (09:39→21:18)
[2019-04-09] MEDS: SERTRALINE 50 MG TABLET. PO SCH (09:39)
[2019-04-09] MEDS ORDERED: CYCLOBENZAPRINE 10 MG TABLET. PO PRN (10:15)
--- NOTE | 2019-04-09 10:17 | PDOC2 ---
GI CONSULT Reason For Consult: Vomiting, h/o stomach ulcer HPI: HPI: 54 y/o female well-known to Dr. Mccarty. Third admission since last month. Awoke at 4:00 a.m. yesterday, started vomiting, then had diffuse abdominal pain ("sharp"). I asked about hematemesis - "they said it was coffee-grounds." Quite hypertensive in ER per usual. Says was taking BP meds at home (last took on Monday), was also taking pantoprazole QD. Did not get Reglan from her pharmacy after last discharge due to financial reasons. Describes passing hard stool, can't say when this happened. Overnight had pelvic/hip pain wrapping around to lower back. Feels better this morning, having ice chips. H/o gastroparesis (GES abnormal @ [facility] in the past) and GERD, issues in the past w/ non-compliance. Has reported previous EGDs and colonoscopies @ and [facility] [place] (most recently ~6 months ago with "H. pylori ulcer" which she reported in the past as well). No dysphagia, hematochezia, melena, diarrhea, weight loss. No GB, liver, or pancreas history. No NSAIDs. ?hydrocodone at home PMH: PMH: HTN, GERD, gastroparesis, H. pylori (treated twice?), depression, RA, right ankle ORIF, exploratory abd surgery (@[facility] [place] FH: Family History: CAD, DM, Hypertension Social History: Smoke: No ALCOHOL: none Drugs: Marijuana (tox screen neg this time) ROS: GEN: Denies fevers, chills, sweats HEENT: Denies blurred vision, sore throat CV: Denies chest pain RESP: Denies shortness of air, cough GI: Per HPI : Denies hematuria, dysuria ENDO: Denies weight changes NEURO: Denies confusion, dizziness MSK: Denies weakness, joint pain/swelling SKIN: Denies jaundice, pruritus Vitals: Vitals: Vital Signs Date Time Temp Pulse Resp B/P (MAP) Pulse Ox O2 Delivery O2 Flow Rate FiO2 04/09/19 09:39 93 120/83 04/09/19 07:58 Room Air 04/09/19 07:25 97.9 16 98 97.9 Labs: Labs: Laboratory Tests Test 04/08/19 15:22 04/08/19 17:00 04/09/19 08:05 04/09/19 08:25 White Blood Count 9.9 x10^3/uL (4.0-11.0) 14.0 x10^3/uL (4.0-11.0) Red Blood Count 5.85 x10^6/uL (3.50-5.40) 5.43 x10^6/uL (3.50-5.40) Hemoglobin 17.1 g/dL (12.0-15.5) 15.7 g/dL (12.0-15.5) Hematocrit 50.9 % (36.0-47.0) 47.3 % (36.0-47.0) Mean Corpuscular Volume 87 fL (79-100) 87 fL (79-100) Mean Corpuscular Hemoglobin 29 pg (25-35) 29 pg (25-35) Mean Corpuscular Hemoglobin Concent 34 g/dL (31-37) 33 g/dL (31-37) Red Cell Distribution Width 14.8 % (11.5-14.5) 14.9 % (11.5-14.5) Platelet Count 234 x10^3/uL (140-400) 199 x10^3/uL (140-400) Neutrophils (%) (Auto) 64 % (31-73) 78 % (31-73) Lymphocytes (%) (Auto) 28 % (24-48) 16 % (24-48) Monocytes (%) (Auto) 7 % (0-9) 6 % (0-9) Eosinophils (%) (Auto) 0 % (0-3) 0 % (0-3) Basophils (%) (Auto) 1 % (0-3) 1 % (0-3) Neutrophils # (Auto) 6.3 x10^3/uL (1.8-7.7) 10.8 x10^3/uL (1.8-7.7) Lymphocytes # (Auto) 2.7 x10^3/uL (1.0-4.8) 2.2 x10^3/uL (1.0-4.8) Monocytes # (Auto) 0.7 x10^3/uL (0.0-1.1) 0.9 x10^3/uL (0.0-1.1) Eosinophils # (Auto) 0.0 x10^3/uL (0.0-0.7) 0.0 x10^3/uL (0.0-0.7) Basophils # (Auto) 0.1 x10^3/uL (0.0-0.2) 0.1 x10^3/uL (0.0-0.2) Urine Collection Type Void Urine Color Yellow Urine Clarity Clear Urine pH 8.0 Urine Specific [place] 1.010 Urine Protein 100 mg/dL (NEG-TRACE) Urine Glucose (UA) Negative mg/dL (NEG) Urine Ketones (Stick) 15 mg/dL (NEG) Urine Blood Small (NEG) Urine Nitrite Negative (NEG) Urine Bilirubin Negative (NEG) Urine Urobilinogen Dipstick 0.2 mg/dL (0.2 mg/dL) Urine Leukocyte Esterase Negative (NEG) Urine RBC 3-5 /HPF (0-2) Urine WBC 0 /HPF (0-4) Urine Squamous Epithelial Cells Occ /LPF Urine Bacteria 0 /HPF (0-FEW) Urine Opiates Screen Neg (NEG) Urine Methadone Screen Neg (NEG) Urine Barbiturates Neg (NEG) Urine Phencyclidine Screen Neg (NEG) Urine Amphetamine/Methamphetamine Neg (NEG) Urine Benzodiazepines Screen Neg (NEG) Urine Cocaine Screen Neg (NEG) Urine Cannabinoids Screen Neg (NEG) Urine Ethyl Alcohol Neg (NEG) Sodium Level 138 mmol/L (136-145) 138 mmol/L (136-145) Potassium Level 2.7 mmol/L (3.5-5.1) 3.3 mmol/L (3.5-5.1) Chloride Level 99 mmol/L (98-107) 99 mmol/L (98-107) Carbon Dioxide Level 22 mmol/L (21-32) 22 mmol/L (21-32) Anion Gap 17 (6-14) 17 (6-14) Blood Urea Nitrogen 11 mg/dL (7-20) 21 mg/dL (7-20) Creatinine 0.9 mg/dL (0.6-1.0) 1.5 mg/dL (0.6-1.0) Estimated GFR (Cockcroft-Gault) 78.7 43.6 BUN/Creatinine Ratio 12 (6-20) 14 (6-20) Glucose Level 133 mg/dL (70-99) 119 mg/dL (70-99) Calcium Level 10.7 mg/dL (8.5-10.1) 10.0 mg/dL (8.5-10.1) Total Bilirubin 0.9 mg/dL (0.2-1.0) 0.7 mg/dL (0.2-1.0) Aspartate Amino Transf (AST/SGOT) 22 U/L (15-37) 15 U/L (15-37) Alanine Aminotransferase (ALT/SGPT) 20 U/L (14-59) 18 U/L (14-59) Alkaline Phosphatase 103 U/L (46-116) 91 U/L (46-116) Total Protein 10.0 g/dL (6.4-8.2) 9.0 g/dL (6.4-8.2) Albumin 5.0 g/dL (3.4-5.0) 4.6 g/dL (3.4-5.0) Albumin/Globulin Ratio 1.0 (1.0-1.7) 1.0 (1.0-1.7) Lipase 70 U/L (73-393) Thyroid Stimulating Hormone (TSH) 1.606 uIU/mL (0.358-3.74) Ethyl Alcohol Level < 10 mg/dL (0-10) Phosphorus Level 2.5 mg/dL (2.6-4.7) Magnesium Level 1.9 mg/dL (1.8-2.4) Allergies: Coded Allergies: Penicillins (Verified Allergy, Intermediate, 12/01/16) Medications: Current Medications Medications (Trade) Dose Ordered Sig/Emile Route PRN Reason Start Time Stop Time Status Last Admin Dose Admin Clonidine HCl (Catapres) 0.2 mg 1X ONCE PO 04/08/19 15:45 04/08/19 15:46 DC 04/08/19 15:31 Dicyclomine HCl (Bentyl) 20 mg 1X ONCE PO 04/08/19 15:45 04/08/19 15:46 DC 04/08/19 15:28 Labetalol HCl (Normodyne Iv Push) 10 mg 1X ONCE IVP 04/08/19 15:45 04/08/19 15:46 DC 04/08/19 15:32 Famotidine (Pepcid Vial) 20 mg 1X ONCE IVP 04/08/19 15:45 04/08/19 15:46 DC 04/08/19 15:32 Ondansetron HCl (Zofran) 4 mg 1X ONCE IV 04/08/19 15:45 04/08/19 15:46 DC 04/08/19 15:32 Sodium Chloride 1,000 ml @ 1,000 mls/hr 1X ONCE IV 04/08/19 15:15 04/08/19 16:14 DC 04/08/19 15:15 Hydralazine HCl (Apresoline Inj) 10 mg 1X ONCE IVP 04/08/19 17:45 04/08/19 17:46 DC 04/08/19 17:14 Iohexol (Omnipaque 300 Mg/ml) 75 ml 1X ONCE IV 04/08/19 17:30 04/08/19 17:31 DC 04/08/19 17:29 Potassium Chloride (Klor-Con) 40 meq 1X ONCE PO 04/08/19 17:45 04/08/19 17:46 DC 04/08/19 17:55 Enalaprilat (Vasotec Inj) 2.5 mg 1X ONCE IVP 04/08/19 18:30 04/08/19 18:31 DC 04/08/19 18:31 Acetaminophen (Tylenol) 650 mg PRN Q4HRS PRN PO FEVER 04/08/19 18:30 04/09/19 18:29 04/09/19 09:45 Methylprednisolone Sodium Succinate (SOLU-Medrol 125MG VIAL) 125 mg 1X ONCE IV 04/08/19 18:30 04/08/19 18:40 DC 04/08/19 18:58 Potassium Chloride/Sodium Chloride 1,000 ml @ 75 mls/hr 1X ONCE IV 04/08/19 19:00 04/09/19 08:27 DC 04/08/19 19:00 Multi-Ingredient Mouthwash/Gargle (Gi Cocktail) 20 ml 1X ONCE SWSW 04/08/19 18:30 04/08/19 18:40 DC 04/08/19 18:57 Hydralazine HCl (Apresoline Inj) 10 mg Q4HRS PRN IVP HYPERTENSION 04/08/19 18:30 04/08/19 19:17 Labetalol HCl (Normodyne Iv Push) 20 mg 1X ONCE IVP 04/08/19 20:00 04/08/19 20:01 DC 04/08/19 20:00 Nicardipine HCl 50 mg/Sodium Chloride 250 ml @ 25 mls/hr CONT PRN IV SEE I/O RECORD 04/08/19 21:00 04/08/19 21:35 Ondansetron HCl (Zofran) 4 mg PRN Q6HRS PRN IV NAUSEA/VOMITING 1ST CHOICE 04/08/19 21:15 04/09/19 09:34 Ketorolac Tromethamine (Toradol 30mg Vial) 30 mg PRN Q6HRS PRN IV MODERATE PAIN 4-6 04/08/19 21:15 04/13/19 21:14 04/09/19 09:47 Amlodipine Besylate (Norvasc) 10 mg DAILY PO 04/09/19 09:00 04/09/19 09:38 Gabapentin (Neurontin) 300 mg TID PO 04/08/19 22:00 04/09/19 09:37 Promethazine HCl (Phenergan Supp) 12.5 mg BID RC 04/09/19 09:00 04/09/19 02:15 Labetalol HCl (Trandate) 100 mg BID PO 04/08/19 22:00 04/09/19 09:39 Pantoprazole Sodium (Protonix) 40 mg DAILYAC PO 04/09/19 07:30 04/09/19 09:38 Sertraline HCl (Zoloft) 100 mg DAILY PO 04/09/19 09:00 04/09/19 09:39 Sucralfate (Carafate) 1 gm QIDACHS PO 04/09/19 07:30 04/09/19 09:37 Metoprolol Tartrate (Lopressor Vial) 5 mg 1X ONCE IVP 04/09/19 03:00 04/09/19 03:01 DC 04/09/19 03:00 Imaging: Imaging: CT A/P IMPRESSION: 1. No evidence of bowel obstruction. 2. Portions of the colon wall appears prominent in thickness however this is in a region of lack of distention therefore could be secondary to lack of distention however would correlate with symptoms to ensure that there is not a pathologic cause such as a mild colitis. 3. Wall of the urinary bladder appears mildly prominent in thickness. Could be from lack of distention but would correlate with symptoms in the region to ensure that there is not a pathologic process such as mild cystitis contributing. PE: GEN: NAD HEENT: Atraumatic, PERRL LUNGS: CTAB HEART: RRR ABD: NABS, S/ND/NT EXTREMITY: No edema SKIN: No rashes, no jaundice NEURO/PSYCH: A & O �3 A/P: A/P: Uncontrolled HTN, hypokalemia, MARAH Recurrent n/v, abd pain GERD, gastroparesis Constipation CRC screen - reports recent colonoscopy [place] [facility] [place] Non-compliance -- Mention of coffee-ground emesis - no recurrence and Hgb above normal - probably not meaningful bleeding. D/w Dr. Mccarty - mildly abnormal GES in the past, will repeat. Can try clears and ADAT after. Agree w/ PPI. ?need for Carafate Stool softener, etc. ANDRES HOFFMAN Apr 09, 2019 10:17
[2019-04-09] MEDS: CYCLOBENZAPRINE 10 MG TABLET. PO SCH (10:26)
[2019-04-09] MEDS: POLYETHYLENE GLYCOL 3350 17 GM PACKET. PO SCH ×2 (10:27→21:18)
[2019-04-09] MEDS ORDERED: BISACODYL 5 MG TABLET.DR. PO ONE (10:30)
[2019-04-09] MEDS ORDERED: POTASSIUM CHLORIDE 20 MEQ TABLET.ER. PO ONE (11:30)
--- NOTE | 2019-04-09 13:41 | PDOC ---
PROGRESS NOTES Chief Complaint Chief Complaint Hypertensive emergency - admit to [facility] on cardene GTT Acute encephalopathy - she is aware she is confused, no focal neuro deficits. With her BP coming down she feels improved. Acute abdominal pain - uncertain etiology, known well to GI service, will consult Hematemesis - with polycythemia. Will monitor CBC. No further vomiting Nausea and vomiting - intractable, will keep meds IV, zofran, compazine until able to take PO Hypokalemia - replace IV and po, check mag. AM cortisol level Dehydration - from pain and nausea and poor PO intake, , IV fluid Hypercalcemia - 10.7, will give IVF. Monitor, check phos, vitamin D levels Hyperglycemia - will check A1c, TSH History of Present Illness History of Present Illness BP goes almost low when her pain is controlled back pain, abd pain, nausea, poor po intake GES planned, cnot current Vitals Vitals Vital Signs Date Time Temp Pulse Resp B/P (MAP) Pulse Ox O2 Delivery O2 Flow Rate FiO2 04/09/19 11:03 97.8 80 16 109/67 (81) 93 Room Air 97.8 Physical Exam General: Alert, Oriented X3, Cooperative, mild distress Heart: Regular rate Lungs: Clear, Wheezing Abdomen: Soft Extremities: No clubbing, No cyanosis Skin: No rashes, No breakdown Labs LABS Laboratory Tests Test 04/08/19 15:22 04/08/19 17:00 04/09/19 08:05 04/09/19 08:25 White Blood Count 9.9 x10^3/uL (4.0-11.0) 14.0 x10^3/uL (4.0-11.0) Red Blood Count 5.85 x10^6/uL (3.50-5.40) 5.43 x10^6/uL (3.50-5.40) Hemoglobin 17.1 g/dL (12.0-15.5) 15.7 g/dL (12.0-15.5) Hematocrit 50.9 % (36.0-47.0) 47.3 % (36.0-47.0) Mean Corpuscular Volume 87 fL (79-100) 87 fL (79-100) Mean Corpuscular Hemoglobin 29 pg (25-35) 29 pg (25-35) Mean Corpuscular Hemoglobin Concent 34 g/dL (31-37) 33 g/dL (31-37) Red Cell Distribution Width 14.8 % (11.5-14.5) 14.9 % (11.5-14.5) Platelet Count 234 x10^3/uL (140-400) 199 x10^3/uL (140-400) Neutrophils (%) (Auto) 64 % (31-73) 78 % (31-73) Lymphocytes (%) (Auto) 28 % (24-48) 16 % (24-48) Monocytes (%) (Auto) 7 % (0-9) 6 % (0-9) Eosinophils (%) (Auto) 0 % (0-3) 0 % (0-3) Basophils (%) (Auto) 1 % (0-3) 1 % (0-3) Neutrophils # (Auto) 6.3 x10^3/uL (1.8-7.7) 10.8 x10^3/uL (1.8-7.7) Lymphocytes # (Auto) 2.7 x10^3/uL (1.0-4.8) 2.2 x10^3/uL (1.0-4.8) Monocytes # (Auto) 0.7 x10^3/uL (0.0-1.1) 0.9 x10^3/uL (0.0-1.1) Eosinophils # (Auto) 0.0 x10^3/uL (0.0-0.7) 0.0 x10^3/uL (0.0-0.7) Basophils # (Auto) 0.1 x10^3/uL (0.0-0.2) 0.1 x10^3/uL (0.0-0.2) Urine Collection Type Void Urine Color Yellow Urine Clarity Clear Urine pH 8.0 Urine Specific Mullin 1.010 Urine Protein 100 mg/dL (NEG-TRACE) Urine Glucose (UA) Negative mg/dL (NEG) Urine Ketones (Stick) 15 mg/dL (NEG) Urine Blood Small (NEG) Urine Nitrite Negative (NEG) Urine Bilirubin Negative (NEG) Urine Urobilinogen Dipstick 0.2 mg/dL (0.2 mg/dL) Urine Leukocyte Esterase Negative (NEG) Urine RBC 3-5 /HPF (0-2) Urine WBC 0 /HPF (0-4) Urine Squamous Epithelial Cells Occ /LPF Urine Bacteria 0 /HPF (0-FEW) Urine Opiates Screen Neg (NEG) Urine Methadone Screen Neg (NEG) Urine Barbiturates Neg (NEG) Urine Phencyclidine Screen Neg (NEG) Urine Amphetamine/Methamphetamine Neg (NEG) Urine Benzodiazepines Screen Neg (NEG) Urine Cocaine Screen Neg (NEG) Urine Cannabinoids Screen Neg (NEG) Urine Ethyl Alcohol Neg (NEG) Sodium Level 138 mmol/L (136-145) 138 mmol/L (136-145) Potassium Level 2.7 mmol/L (3.5-5.1) 3.3 mmol/L (3.5-5.1) Chloride Level 99 mmol/L (98-107) 99 mmol/L (98-107) Carbon Dioxide Level 22 mmol/L (21-32) 22 mmol/L (21-32) Anion Gap 17 (6-14) 17 (6-14) Blood Urea Nitrogen 11 mg/dL (7-20) 21 mg/dL (7-20) Creatinine 0.9 mg/dL (0.6-1.0) 1.5 mg/dL (0.6-1.0) Estimated GFR (Cockcroft-Gault) 78.7 43.6 BUN/Creatinine Ratio 12 (6-20) 14 (6-20) Glucose Level 133 mg/dL (70-99) 119 mg/dL (70-99) Calcium Level 10.7 mg/dL (8.5-10.1) 10.0 mg/dL (8.5-10.1) Total Bilirubin 0.9 mg/dL (0.2-1.0) 0.7 mg/dL (0.2-1.0) Aspartate Amino Transf (AST/SGOT) 22 U/L (15-37) 15 U/L (15-37) Alanine Aminotransferase (ALT/SGPT) 20 U/L (14-59) 18 U/L (14-59) Alkaline Phosphatase 103 U/L (46-116) 91 U/L (46-116) Total Protein 10.0 g/dL (6.4-8.2) 9.0 g/dL (6.4-8.2) Albumin 5.0 g/dL (3.4-5.0) 4.6 g/dL (3.4-5.0) Albumin/Globulin Ratio 1.0 (1.0-1.7) 1.0 (1.0-1.7) Lipase 70 U/L (73-393) Thyroid Stimulating Hormone (TSH) 1.606 uIU/mL (0.358-3.74) Ethyl Alcohol Level < 10 mg/dL (0-10) Phosphorus Level 2.5 mg/dL (2.6-4.7) Magnesium Level 1.9 mg/dL (1.8-2.4) Cortisol AM Sample 24.4 ug/dL (4.3-22.4) Assessment and Plan Assessmemt and Plan Problems Medical Problems: (1) Abdominal pain Status: Acute (2) Hypertensive emergency Status: Acute (3) Narcotic dependence Status: Acute (4) Nausea and vomiting Status: Acute Comment Review of Relevant I have reviewed the following items starr (where applicable) has been applied. Labs Laboratory Tests Test 04/08/19 15:22 04/08/19 17:00 04/09/19 08:05 04/09/19 08:25 White Blood Count 9.9 x10^3/uL (4.0-11.0) 14.0 x10^3/uL (4.0-11.0) Red Blood Count 5.85 x10^6/uL (3.50-5.40) 5.43 x10^6/uL (3.50-5.40) Hemoglobin 17.1 g/dL (12.0-15.5) 15.7 g/dL (12.0-15.5) Hematocrit 50.9 % (36.0-47.0) 47.3 % (36.0-47.0) Mean Corpuscular Volume 87 fL (79-100) 87 fL (79-100) Mean Corpuscular Hemoglobin 29 pg (25-35) 29 pg (25-35) Mean Corpuscular Hemoglobin Concent 34 g/dL (31-37) 33 g/dL (31-37) Red Cell Distribution Width 14.8 % (11.5-14.5) 14.9 % (11.5-14.5) Platelet Count 234 x10^3/uL (140-400) 199 x10^3/uL (140-400) Neutrophils (%) (Auto) 64 % (31-73) 78 % (31-73) Lymphocytes (%) (Auto) 28 % (24-48) 16 % (24-48) Monocytes (%) (Auto) 7 % (0-9) 6 % (0-9) Eosinophils (%) (Auto) 0 % (0-3) 0 % (0-3) Basophils (%) (Auto) 1 % (0-3) 1 % (0-3) Neutrophils # (Auto) 6.3 x10^3/uL (1.8-7.7) 10.8 x10^3/uL (1.8-7.7) Lymphocytes # (Auto) 2.7 x10^3/uL (1.0-4.8) 2.2 x10^3/uL (1.0-4.8) Monocytes # (Auto) 0.7 x10^3/uL (0.0-1.1) 0.9 x10^3/uL (0.0-1.1) Eosinophils # (Auto) 0.0 x10^3/uL (0.0-0.7) 0.0 x10^3/uL (0.0-0.7) Basophils # (Auto) 0.1 x10^3/uL (0.0-0.2) 0.1 x10^3/uL (0.0-0.2) Urine Collection Type Void Urine Color Yellow Urine Clarity Clear Urine pH 8.0 Urine Specific Mullin 1.010 Urine Protein 100 mg/dL (NEG-TRACE) Urine Glucose (UA) Negative mg/dL (NEG) Urine Ketones (Stick) 15 mg/dL (NEG) Urine Blood Small (NEG) Urine Nitrite Negative (NEG) Urine Bilirubin Negative (NEG) Urine Urobilinogen Dipstick 0.2 mg/dL (0.2 mg/dL) Urine Leukocyte Esterase Negative (NEG) Urine RBC 3-5 /HPF (0-2) Urine WBC 0 /HPF (0-4) Urine Squamous Epithelial Cells Occ /LPF Urine Bacteria 0 /HPF (0-FEW) Urine Opiates Screen Neg (NEG) Urine Methadone Screen Neg (NEG) Urine Barbiturates Neg (NEG) Urine Phencyclidine Screen Neg (NEG) Urine Amphetamine/Methamphetamine Neg (NEG) Urine Benzodiazepines Screen Neg (NEG) Urine Cocaine Screen Neg (NEG) Urine Cannabinoids Screen Neg (NEG) Urine Ethyl Alcohol Neg (NEG) Sodium Level 138 mmol/L (136-145) 138 mmol/L (136-145) Potassium Level 2.7 mmol/L (3.5-5.1) 3.3 mmol/L (3.5-5.1) Chloride Level 99 mmol/L (98-107) 99 mmol/L (98-107) Carbon Dioxide Level 22 mmol/L (21-32) 22 mmol/L (21-32) Anion Gap 17 (6-14) 17 (6-14) Blood Urea Nitrogen 11 mg/dL (7-20) 21 mg/dL (7-20) Creatinine 0.9 mg/dL (0.6-1.0) 1.5 mg/dL (0.6-1.0) Estimated GFR (Cockcroft-Gault) 78.7 43.6 BUN/Creatinine Ratio 12 (6-20) 14 (6-20) Glucose Level 133 mg/dL (70-99) 119 mg/dL (70-99) Calcium Level 10.7 mg/dL (8.5-10.1) 10.0 mg/dL (8.5-10.1) Total Bilirubin 0.9 mg/dL (0.2-1.0) 0.7 mg/dL (0.2-1.0) Aspartate Amino Transf (AST/SGOT) 22 U/L (15-37) 15 U/L (15-37) Alanine Aminotransferase (ALT/SGPT) 20 U/L (14-59) 18 U/L (14-59) Alkaline Phosphatase 103 U/L (46-116) 91 U/L (46-116) Total Protein 10.0 g/dL (6.4-8.2) 9.0 g/dL (6.4-8.2) Albumin 5.0 g/dL (3.4-5.0) 4.6 g/dL (3.4-5.0) Albumin/Globulin Ratio 1.0 (1.0-1.7) 1.0 (1.0-1.7) Lipase 70 U/L (73-393) Thyroid Stimulating Hormone (TSH) 1.606 uIU/mL (0.358-3.74) Ethyl Alcohol Level < 10 mg/dL (0-10) Phosphorus Level 2.5 mg/dL (2.6-4.7) Magnesium Level 1.9 mg/dL (1.8-2.4) Cortisol AM Sample 24.4 ug/dL (4.3-22.4) Laboratory Tests Test 04/08/19 15:22 04/08/19 17:00 04/09/19 08:05 04/09/19 08:25 White Blood Count 9.9 x10^3/uL (4.0-11.0) 14.0 x10^3/uL (4.0-11.0) Red Blood Count 5.85 x10^6/uL (3.50-5.40) 5.43 x10^6/uL (3.50-5.40) Hemoglobin 17.1 g/dL (12.0-15.5) 15.7 g/dL (12.0-15.5) Hematocrit 50.9 % (36.0-47.0) 47.3 % (36.0-47.0) Mean Corpuscular Volume 87 fL (79-100) 87 fL (79-100) Mean Corpuscular Hemoglobin 29 pg (25-35) 29 pg (25-35) Mean Corpuscular Hemoglobin Concent 34 g/dL (31-37) 33 g/dL (31-37) Red Cell Distribution Width 14.8 % (11.5-14.5) 14.9 % (11.5-14.5) Platelet Count 234 x10^3/uL (140-400) 199 x10^3/uL (140-400) Neutrophils (%) (Auto) 64 % (31-73) 78 % (31-73) Lymphocytes (%) (Auto) 28 % (24-48) 16 % (24-48) Monocytes (%) (Auto) 7 % (0-9) 6 % (0-9) Eosinophils (%) (Auto) 0 % (0-3) 0 % (0-3) Basophils (%) (Auto) 1 % (0-3) 1 % (0-3) Neutrophils # (Auto) 6.3 x10^3/uL (1.8-7.7) 10.8 x10^3/uL (1.8-7.7) Lymphocytes # (Auto) 2.7 x10^3/uL (1.0-4.8) 2.2 x10^3/uL (1.0-4.8) Monocytes # (Auto) 0.7 x10^3/uL (0.0-1.1) 0.9 x10^3/uL (0.0-1.1) Eosinophils # (Auto) 0.0 x10^3/uL (0.0-0.7) 0.0 x10^3/uL (0.0-0.7) Basophils # (Auto) 0.1 x10^3/uL (0.0-0.2) 0.1 x10^3/uL (0.0-0.2) Urine Collection Type Void Urine Color Yellow Urine Clarity Clear Urine pH 8.0 Urine Specific Mullin 1.010 Urine Protein 100 mg/dL (NEG-TRACE) Urine Glucose (UA) Negative mg/dL (NEG) Urine Ketones (Stick) 15 mg/dL (NEG) Urine Blood Small (NEG) Urine Nitrite Negative (NEG) Urine Bilirubin Negative (NEG) Urine Urobilinogen Dipstick 0.2 mg/dL (0.2 mg/dL) Urine Leukocyte Esterase Negative (NEG) Urine RBC 3-5 /HPF (0-2) Urine WBC 0 /HPF (0-4) Urine Squamous Epithelial Cells Occ /LPF Urine Bacteria 0 /HPF (0-FEW) Urine Opiates Screen Neg (NEG) Urine Methadone Screen Neg (NEG) Urine Barbiturates Neg (NEG) Urine Phencyclidine Screen Neg (NEG) Urine Amphetamine/Methamphetamine Neg (NEG) Urine Benzodiazepines Screen Neg (NEG) Urine Cocaine Screen Neg (NEG) Urine Cannabinoids Screen Neg (NEG) Urine Ethyl Alcohol Neg (NEG) Sodium Level 138 mmol/L (136-145) 138 mmol/L (136-145) Potassium Level 2.7 mmol/L (3.5-5.1) 3.3 mmol/L (3.5-5.1) Chloride Level 99 mmol/L (98-107) 99 mmol/L (98-107) Carbon Dioxide Level 22 mmol/L (21-32) 22 mmol/L (21-32) Anion Gap 17 (6-14) 17 (6-14) Blood Urea Nitrogen 11 mg/dL (7-20) 21 mg/dL (7-20) Creatinine 0.9 mg/dL (0.6-1.0) 1.5 mg/dL (0.6-1.0) Estimated GFR (Cockcroft-Gault) 78.7 43.6 BUN/Creatinine Ratio 12 (6-20) 14 (6-20) Glucose Level 133 mg/dL (70-99) 119 mg/dL (70-99) Calcium Level 10.7 mg/dL (8.5-10.1) 10.0 mg/dL (8.5-10.1) Total Bilirubin 0.9 mg/dL (0.2-1.0) 0.7 mg/dL (0.2-1.0) Aspartate Amino Transf (AST/SGOT) 22 U/L (15-37) 15 U/L (15-37) Alanine Aminotransferase (ALT/SGPT) 20 U/L (14-59) 18 U/L (14-59) Alkaline Phosphatase 103 U/L (46-116) 91 U/L (46-116) Total Protein 10.0 g/dL (6.4-8.2) 9.0 g/dL (6.4-8.2) Albumin 5.0 g/dL (3.4-5.0) 4.6 g/dL (3.4-5.0) Albumin/Globulin Ratio 1.0 (1.0-1.7) 1.0 (1.0-1.7) Lipase 70 U/L (73-393) Thyroid Stimulating Hormone (TSH) 1.606 uIU/mL (0.358-3.74) Ethyl Alcohol Level < 10 mg/dL (0-10) Phosphorus Level 2.5 mg/dL (2.6-4.7) Magnesium Level 1.9 mg/dL (1.8-2.4) Cortisol AM Sample 24.4 ug/dL (4.3-22.4) Medications Current Medications Clonidine HCl (Catapres) 0.2 mg 1X ONCE PO Last administered on 04/08/19at 15:31; Start 04/08/19 at 15:45; Stop 04/08/19 at 15:46; Status DC Dicyclomine HCl (Bentyl) 20 mg 1X ONCE PO Last administered on 04/08/19at 15:28; Start 04/08/19 at 15:45; Stop 04/08/19 at 15:46; Status DC Labetalol HCl (Normodyne Iv Push) 10 mg 1X ONCE IVP Last administered on 04/08/19at 15:32; Start 04/08/19 at 15:45; Stop 04/08/19 at 15:46; Status DC Famotidine (Pepcid Vial) 20 mg 1X ONCE IVP Last administered on 04/08/19at 15:32; Start 04/08/19 at 15:45; Stop 04/08/19 at 15:46; Status DC Ondansetron HCl (Zofran) 4 mg 1X ONCE IV Last administered on 04/08/19at 15:32; Start 04/08/19 at 15:45; Stop 04/08/19 at 15:46; Status DC Sodium Chloride 1,000 ml @ 1,000 mls/hr 1X ONCE IV Last administered on 04/08/19at 15:15; Start 04/08/19 at 15:15; Stop 04/08/19 at 16:14; Status DC Hydralazine HCl (Apresoline Inj) 10 mg 1X ONCE IVP Last administered on 04/08/19at 17:14; Start 04/08/19 at 17:45; Stop 04/08/19 at 17:46; Status DC Iohexol (Omnipaque 300 Mg/ml) 75 ml 1X ONCE IV Last administered on 04/08/19at 17:29; Start 04/08/19 at 17:30; Stop 04/08/19 at 17:31; Status DC Info (CONTRAST GIVEN -- Rx MONITORING) 1 each PRN DAILY PRN MC SEE COMMENTS; Start 04/08/19 at 17:30; Stop 04/10/19 at 17:29 Potassium Chloride (Klor-Con) 40 meq 1X ONCE PO Last administered on 04/08/19at 17:55; Start 04/08/19 at 17:45; Stop 04/08/19 at 17:46; Status DC Enalaprilat (Vasotec Inj) 2.5 mg 1X ONCE IVP Last administered on 04/08/19at 18:31; Start 04/08/19 at 18:30; Stop 04/08/19 at 18:31; Status DC Ondansetron HCl (Zofran) 4 mg PRN Q8HRS PRN IV NAUSEA/VOMITING; Start 04/08/19 at 18:30; Stop 04/08/19 at 21:10; Status DC Acetaminophen (Tylenol) 650 mg PRN Q4HRS PRN PO FEVER Last administered on 04/09/19 09:45; Start 04/08/19 at 18:30; Stop 04/09/19 at 18:29 Methylprednisolone Sodium Succinate (SOLU-Medrol 125MG VIAL) 125 mg 1X ONCE IV Last administered on 04/08/19 18:58; Start 04/08/19 at 18:30; Stop 04/08/19 at 18:40; Status DC Potassium Chloride/Sodium Chloride 1,000 ml @ 75 mls/hr 1X ONCE IV Last ad ministered on 04/08/19 19:00; Start 04/08/19 at 19:00; Stop 04/09/19 at 08:27; Status DC Multi-Ingredient Mouthwash/Gargle (Gi Cocktail) 20 ml 1X ONCE SWSW Last administered on 04/08/19 18:57; Start 04/08/19 at 18:30; Stop 04/08/19 at 18:40; Status DC Hydralazine HCl (Apresoline Inj) 10 mg Q4HRS PRN IVP HYPERTENSION Last administered on 04/08/19 19:17; Start 04/08/19 at 18:30 Labetalol HCl (Normodyne Iv Push) 20 mg 1X ONCE IVP Last administered on 04/08/19 20:00; Start 04/08/19 at 20:00; Stop 04/08/19 at 20:01; Status DC Nicardipine HCl 50 mg/Sodium Chloride 250 ml @ 25 mls/hr CONT PRN IV SEE I/O RECORD Last administered on 04/08/19 21:35; Start 04/08/19 at 21:00 Ondansetron HCl (Zofran) 4 mg PRN Q6HRS PRN IV NAUSEA/VOMITING 1ST CHOICE Last administered on 04/09/19 09:34; Start 04/08/19 at 21:15 Ketorolac Tromethamine (Toradol 30mg Vial) 30 mg PRN Q6HRS PRN IV MODERATE PAIN 4-6 Last administered on 04/09/19 09:47; Start 04/08/19 at 21:15; Stop 04/13/19 at 21:14 Amlodipine Besylate (Norvasc) 10 mg DAILY PO Last administered on 04/09/19 09:38; Start 04/09/19 at 09:00 Atorvastatin Calcium (Lipitor) 10 mg QHS PO ; Start 04/08/19 at 22:00 Cyclobenzaprine HCl (Flexeril) 10 mg QHS PO Last administered on 04/09/19 10:26; Start 04/08/19 at 22:00 Gabapentin (Neurontin) 300 mg TID PO Last administered on 04/09/19 09:37; Start 04/08/19 at 22:00 Hydroxyzine HCl (Atarax) 50 mg PRN Q6HRS PRN PO ITCHING; Start 04/08/19 at 21:15 Ondansetron HCl (Zofran Odt) 4 mg PRN Q6HRS PRN PO nausea 1ST CHOICE; Start 04/08/19 at 21:15 Potassium Chloride (Klor-Con) 10 meq DAILYBFRSUP PO ; Start 04/09/19 at 17:00 Promethazine HCl (Phenergan Supp) 12.5 mg BID RC Last administered on 04/09/19 02:15; Start 04/09/19 at 09:00 Labetalol HCl (Trandate) 100 mg BID PO Last administered on 04/09/19 09:39; Start 04/08/19 at 22:00 Pantoprazole Sodium (Protonix) 40 mg DAILYAC PO Last administered on 04/09/19 09:38; Start 04/09/19 at 07:30 Sertraline HCl (Zoloft) 100 mg DAILY PO Last administered on 04/09/19 09:39; Start 04/09/19 at 09:00 Sucralfate (Carafate) 1 gm QIDACHS PO Last administered on 04/09/19 11:45; Start 04/09/19 at 07:30 Potassium Chloride/Dextrose/ Sod Cl 1,000 ml @ 75 mls/hr 1X ONCE IV Last administered on 04/09/19 10:28; Start 04/08/19 at 22:00; Stop 04/09/19 at 11:19; Status DC Metoprolol Tartrate (Lopressor Vial) 5 mg 1X ONCE IVP Last administered on 7/23/19at 03:00; Start 04/09/19 at 03:00; Stop 04/09/19 at 03:01; Status DC Cyclobenzaprine HCl (Flexeril) 10 mg PRN Q6HRS PRN PO MUSCLE SPASMS; Start 04/09/19 at 10:15 Polyethylene Glycol (miraLAX PACKET) 17 gm BID PO Last administered on 04/09/19at 10:27; Start 04/09/19 at 11:00 Bisacodyl (Dulcolax Tab) 10 mg 1X ONCE PO Last administered on 04/09/19at 10:26; Start 04/09/19 at 10:30; Stop 04/09/19 at 10:31; Status DC Potassium Chloride (Klor-Con) 40 meq 1X ONCE PO Last administered on 04/09/19at 11:45; Start 04/09/19 at 11:30; Stop 04/09/19 at 11:31; Status DC Active Scripts Active Zofran (Ondansetron Hcl) 4 Mg Tablet 1 Tab PO Q6HRS Labetalol Hcl 100 Mg Tablet 100 Mg PO BID Hydrocodone-Apap 5-325 (Hydrocodone Bit/Acetaminophen) 1 Tab Tablet 1 Tab PO PRN Q4HRS PRN Carafate (Sucralfate) 1 Gm Tablet 1 Tab PO QID Omeprazole 20 Mg Tablet.dr 20 Mg PO BID Potassium Chloride 10 Meq Tablet.er 10 Meq PO DAILYBFRSUP 7 Days Zofran Odt (Ondansetron) 4 Mg Tab.rapdis 1 Tab SL Q8HRS Phenergan (Promethazine HCl) 12.5 Mg Supp.rect 12.5 Mg RC BID 5 Days Reported Hydroxyzine Hcl 25 Mg Tablet 50 Mg PO PRN Q6HRS PRN Zoloft (Sertraline Hcl) 100 Mg Tablet 1 Tab PO DAILY Prochlorperazine Maleate 5 Mg Tablet 5 Mg PO PRN TID PRN Cyclobenzaprine Hcl 10 Mg Tablet 1 Tab PO QHS Amlodipine Besylate 10 Mg Tablet 10 Mg PO DAILY Gabapentin 300 Mg Capsule 300 Mg PO TID Atorvastatin Calcium 10 Mg Tablet 1 Tab PO DAILY Vitals/I & O Vital Sign - Last 24 Hours 04/08/19 04/08/19 04/08/19 04/08/19 14:56 15:20 15:28 15:31 Temp 97.6 97.6 Pulse 110 110 103 98 Resp 14 14 14 B/P (MAP) 223/134 (163) 214/139 (164) 223/134 (163) 224/134 Pulse Ox 99 100 100 O2 Delivery Room Air Room Air Room Air 04/08/19 04/08/19 04/08/19 04/08/19 15:32 15:39 15:56 16:09 Pulse 88 80 76 67 Resp 14 14 14 B/P (MAP) 224/134 209/150 (169) 216/120 (152) 227/131 (163) Pulse Ox 100 100 99 O2 Delivery Room Air Room Air Room Air 04/08/19 04/08/19 04/08/19 04/08/19 16:26 16:57 17:14 17:36 Pulse 64 77 64 90 Resp 14 14 14 B/P (MAP) 212/129 (156) 220/118 (152) 220/118 224/123 (156) Pulse Ox 98 98 98 O2 Delivery Room Air Room Air Room Air 04/08/19 04/08/19 04/08/19 04/08/19 18:06 18:31 18:34 19:01 Pulse 82 62 94 104 Resp 14 14 14 B/P (MAP) 210/121 (150) 210/121 205/128 (153) 195/131 (152) Pulse Ox 98 98 98 O2 Delivery Room Air Room Air Room Air 04/08/19 04/08/19 04/08/19 04/08/19 19:06 19:11 19:16 19:17 Pulse 108 101 85 81 Resp 14 14 14 B/P (MAP) 195/127 (149) 198/132 (154) 213/134 (160) 213/134 Pulse Ox 98 98 98 O2 Delivery Room Air Room Air Room Air 04/08/19 04/08/19 04/08/19 04/08/19 19:49 20:00 20:30 20:31 Pulse 101 78 114 Resp 14 14 B/P (MAP) 200/128 (152) 194/109 135/109 (118) Pulse Ox 98 98 O2 Delivery Room Air Room Air Room Air 04/08/19 04/08/19 04/08/19 04/08/19 20:32 20:48 20:50 21:24 Temp 98.0 98.0 Pulse 101 87 83 87 Resp 14 20 B/P (MAP) 186/131 (149) 215/135 (161) 215/135 (161) 185/143 (157) Pulse Ox 98 99 O2 Delivery Room Air Room Air 04/08/19 04/08/19 04/08/19 04/08/19 22:00 22:01 22:40 23:24 Temp 98.0 98.0 Pulse 88 120 106 88 Resp 20 B/P (MAP) 122/92 167/102 (123) 129/90 (103) 122/92 (102) Pulse Ox 99 O2 Delivery Room Air 04/09/19 04/09/19 04/09/19 04/09/19 00:24 00:54 01:24 02:20 Pulse 91 87 100 125 B/P (MAP) 138/94 (109) 106/64 (78) 151/90 (110) 160/112 (128) 04/09/19 04/09/19 04/09/19 04/09/19 03:00 03:07 03:37 04:07 Temp 97.8 97.8 Pulse 110 98 110 119 Resp 22 B/P (MAP) 171/109 150/113 (125) 171/109 (129) 161/112 (128) Pulse Ox 99 O2 Delivery Room Air 04/09/19 04/09/19 04/09/19 04/09/19 04:43 05:07 06:29 07:25 Temp 97.9 97.9 Pulse 135 135 88 93 Resp 16 B/P (MAP) 132/81 (98) 144/101 (115) 121/78 (92) 120/83 (95) Pulse Ox 98 O2 Delivery Room Air 04/09/19 04/09/19 04/09/19 04/09/19 07:58 09:38 09:39 11:03 Temp 97.8 97.8 Pulse 93 93 80 Resp 16 B/P (MAP) 120/83 120/83 109/67 (81) Pulse Ox 93 O2 Delivery Room Air Room Air Intake and Output 04/08/19 04/08/19 04/09/19 15:00 23:00 07:00 Intake Total 1000 ml 0 ml Output Total 200 ml Balance 800 ml 0 ml BENJAMÍN DOBBINS MD Apr 09, 2019 13:41
[2019-04-09] MEDS: HYDROcodone/APAP 5/325MG 1 TAB TABLET PO PRN ×3 (14:00→23:11)
--- NOTE | 2019-04-09 15:50 | RAD ---
CLINICAL HISTORY: Acute renal failure COMPARISON: None available. TECHNIQUE: Ultrasound examination of the bilateral kidneys and urinary bladder was performed. FINDINGS: The right kidney measures 10.7 cm in bipolar length. The renal cortex is normal in thickness. Renal echogenicity is normal. There is no evidence for hydronephrosis, shadowing renal calculus or focal abnormality . The left kidney measures 10.8 cm in bipolar length. The renal cortex is normal in thickness. Renal echogenicity is normal. There is no evidence for hydronephrosis, shadowing renal calculus or focal abnormality. Images of the partially filled urinary bladder are unremarkable. IMPRESSION: Essentially normal sonographic survey of the kidneys and bladder. Electronically signed by: Leon Méndez MD (04/09/2019 3:47 PM) [facility]
[2019-04-09] MEDS: POTASSIUM CHLORIDE 10 MEQ TABLET.ER. PO SCH (19:06)
[2019-04-09] MEDS ORDERED: NICOTINE 21MG PATCH. TD PRN (21:15)
[2019-04-09] MEDS: ATORVASTATIN CALCIUM 10 MG TABLET. PO SCH (21:18)
[2019-04-10] VITALS (7 sets, daily range): BP systolic 99–147; BP diastolic 67–104
[2019-04-10 00:07] LABS: HEMOGLOBIN A1C 5.8 % (4.8-5.6)
[2019-04-10] MEDS: hydrALAZINE 20 MG/ML VIAL. IVP PRN (02:42)
[2019-04-10] MEDS: ONDANSETRON PF 4 MG/2 ML VIAL. IV PRN ×2 (03:40→09:24)
[2019-04-10] MEDS: KETOROLAC 30 MG/ML VIAL. IV PRN ×3 (03:41→21:58)
[2019-04-10] MEDS: PANTOPRAZOLE 40 MG TABLET.DR. PO SCH (07:30)
[2019-04-10] MEDS: SUCRALFATE 1 GM TABLET. PO SCH ×4 (07:30→21:45)
[2019-04-10] MEDS: HYDROcodone/APAP 5/325MG 1 TAB TABLET PO PRN ×2 (08:19→14:07)
--- NOTE | 2019-04-10 08:59 | PDOC ---
Subjective: Subjective: Severe lower abd pain, vomiting. "I need something else for this." Objective: Vital Signs: Vital Signs Date Time Temp Pulse Resp B/P (MAP) Pulse Ox O2 Delivery O2 Flow Rate FiO2 04/10/19 08:19 99 Room Air 04/10/19 07:00 98.0 93 18 147/104 (118) 98.0 Imaging: Renal US IMPRESSION: Essentially normal sonographic survey of the kidneys and bladder. PE: GEN: actively vomiting - looks like eggs from gastric emptying test HEART: tachycardic NEURO/PSYCH: A & O �3, anxious A/P: Recurrent n/v, abd pain - h/o GERD, ?PUD, mildly abnormal GES, constipation HTN, MARAH -- GES cancelled w/ vomiting. Labs pending today. Will review outside records re: past 'scopes. Change to IV acid-block chopper hand. Has done well with Reglan in the past - ?rhonda CLARKE-ANDRES FREITAS Apr 10, 2019 08:59
[2019-04-10] MEDS: PROMETHAZINE 12.5 MG SUPP.RECT. RC SCH ×2 (09:00→21:00)
[2019-04-10] MEDS: amLODIPine BESYLATE 10 MG TABLET PO SCH ×2 (09:00→12:30)
[2019-04-10] MEDS: LABETALOL HCL 100 MG TABLET. PO SCH ×3 (09:00→21:45)
[2019-04-10] MEDS: GABAPENTIN 300 MG CAPSULE. PO SCH ×3 (09:00→21:45)
[2019-04-10] MEDS: POLYETHYLENE GLYCOL 3350 17 GM PACKET. PO SCH ×2 (09:00→21:45)
[2019-04-10] MEDS: SERTRALINE 50 MG TABLET. PO SCH ×2 (09:00→12:30)
--- NOTE | 2019-04-10 09:18 | NUR ---
SS following for discharge planning. SS reviewed pt chart. Pt is self pay pt. [facility]CF[facility] following for self pay status. Pt is from home and is currently on room air. No discharge needs noted at this time. SS will continue to follow for discharge planning.
[2019-04-10 10:38] LABS: ALBUMIN 4.5 g/dL (3.4-5.0); CALCIUM 10.4 mg/dL (8.5-10.1); CREATININE 1.5 mg/dL (0.6-1.0); GFR 43.6; MAGNESIUM 2.2 mg/dL (1.8-2.4); PHOSPHORUS 1.9 mg/dL (2.6-4.7)
[2019-04-10] MEDS: PANTOPRAZOLE IV PUSH 40 MG VIAL. IVP SCH (12:24)
[2019-04-10] MEDS: LIDOCAINE (700MG/PATCH) PATCH. TD SCH (12:54)
--- NOTE | 2019-04-10 14:41 | PDOC ---
[facility] [facility] PROGRESS NOTE Chief Complaint Chief Complaint Acute abdominal pain Hypertensive emergency Acute encephalopathy Hematemesis Nausea and vomiting Hypokalemia Dehydration Hypercalcemia Hyperglycemia History of Present Illness History of Present Illness 04-10-19 Pt. seen and evaluated - says she has ab and back pain (improved when sleeping on floor) Cancelled gastric emptying test s/p vom Chart reviewed DW RN Vitals/I&O Vitals/I&O: Vital Signs Date Time Temp Pulse Resp B/P (MAP) Pulse Ox O2 Delivery O2 Flow Rate FiO2 04/10/19 14:07 16 98 Room Air 04/10/19 12:30 112 136/100 04/10/19 11:00 98.1 98.1 I & O 04/09/19 04/09/19 04/10/19 14:59 22:59 06:59 Intake Total 970 ml 1240 ml 0 ml Output Total 700 ml Balance 970 ml 1240 ml -700 ml Physical Exam General: Alert, Oriented X3, Cooperative, mild distress Heart: Regular rate, No murmurs Lungs: Clear, Wheezing Abdomen: Soft Extremities: No clubbing, No cyanosis Skin: No rashes, No breakdown Labs Labs: Laboratory Tests Test 04/10/19 10:00 Sodium Level 134 mmol/L (136-145) Potassium Level 4.0 mmol/L (3.5-5.1) Chloride Level 99 mmol/L (98-107) Carbon Dioxide Level 21 mmol/L (21-32) Anion Gap 14 (6-14) Blood Urea Nitrogen 32 mg/dL (7-20) Creatinine 1.5 mg/dL (0.6-1.0) Estimated GFR (Cockcroft-Gault) 43.6 Glucose Level 142 mg/dL (70-99) Calcium Level 10.4 mg/dL (8.5-10.1) Phosphorus Level 1.9 mg/dL (2.6-4.7) Magnesium Level 2.2 mg/dL (1.8-2.4) Albumin 4.5 g/dL (3.4-5.0) Review of Systems Review of Systems: CO back pain No headache, no fever/chills Assessment and Plan Assessmemt and Plan Problems Medical Problems: (1) Abdominal pain Status: Acute (2) Hypertensive emergency Status: Acute (3) Narcotic dependence Status: Acute (4) Nausea and vomiting Status: Acute Acute abdominal pain Hypertensive emergency Acute encephalopathy Hematemesis Nausea and vomiting Hypokalemia Dehydration Hypercalcemia Hyperglycemia Plan DW RN and case mgmt PRN narcotics PTOT Home meds Monitor labs Consider possible pain meds Appreciate subspecialist input Comment Review of Relevant I have reviewed the following items starr (where applicable) has been applied. Medications: Current Medications Medications (Trade) Dose Ordered Sig/Emile Route PRN Reason Start Time Stop Time Status Last Admin Dose Admin Potassium Chloride (Klor-Con) 10 meq DAILYBFRSUP PO 04/09/19 17:00 04/09/19 19:06 Nicotine (Nicoderm Cq 21mg) 1 patch PRN DAILY PRN TD SMOKING CESSATION 04/09/19 21:15 04/09/19 21:19 Pantoprazole Sodium (PROTONIX VIAL for IV PUSH) 40 mg DAILYAC IVP 04/10/19 09:15 04/10/19 12:24 Lidocaine (Lidoderm) 1 patch DAILY TD 04/10/19 12:45 04/10/19 12:54 WHIT CABA III DO Apr 10, 2019 14:41
[2019-04-10] MEDS ORDERED: METOCLOPRAMIDE HCL 10 MG/2 ML VIAL. IV PRN (15:00)
--- NOTE | 2019-04-10 15:59 | RAD ---
Examination: Gastric imaging study HISTORY: History of recurrent nausea, vomiting, abdominal pain COMPARISON: 01/16/2016 TECHNIQUE: Gastric empting study was performed after administration of 2.2 mCi of technetium 99m sulfur colloid mixed with solid food material. FINDINGS: Radiotracer identified in the stomach, however exam was terminated as patient vomited immediately after oral ingestion. IMPRESSION: Limited examination as examination was terminated due to emesis. Electronically signed by: Cornelio Salas MD (04/10/2019 3:56 PM) [place] [id number]
[2019-04-10] MEDS: POTASSIUM CHLORIDE 10 MEQ TABLET.ER. PO SCH (17:48)
[2019-04-10] MEDS: PATCH REMOVAL. MC SCH (21:00)
[2019-04-10] MEDS: CYCLOBENZAPRINE 10 MG TABLET. PO SCH (21:45)
[2019-04-10] MEDS: ATORVASTATIN CALCIUM 10 MG TABLET. PO SCH (21:45)
[2019-04-11] VITALS (7 sets, daily range): BP systolic 105–134; BP diastolic 73–93
[2019-04-11] MEDS: HYDROcodone/APAP 5/325MG 1 TAB TABLET PO PRN ×4 (00:37→21:52)
[2019-04-11] MEDS: KETOROLAC 30 MG/ML VIAL. IV PRN ×3 (06:20→21:53)
[2019-04-11] MEDS: SUCRALFATE 1 GM TABLET. PO SCH ×4 (07:30→21:51)
[2019-04-11] MEDS: PANTOPRAZOLE IV PUSH 40 MG VIAL. IVP SCH (07:34)
[2019-04-11] MEDS: GABAPENTIN 300 MG CAPSULE. PO SCH ×3 (09:00→21:51)
[2019-04-11] MEDS: PROMETHAZINE 12.5 MG SUPP.RECT. RC SCH ×2 (09:00→21:00)
[2019-04-11] MEDS: POLYETHYLENE GLYCOL 3350 17 GM PACKET. PO SCH ×2 (09:00→21:56)
[2019-04-11] MEDS: LABETALOL HCL 100 MG TABLET. PO SCH ×2 (09:00→21:00)
[2019-04-11] MEDS: amLODIPine BESYLATE 10 MG TABLET PO SCH (09:00)
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
[2019-04-11 10:28] LABS: CALCIUM 9.8 mg/dL (8.5-10.1); CREATININE 1.8 mg/dL (0.6-1.0); GFR 35.3; POTASSIUM 3.7 mmol/L (3.5-5.1)
[2019-04-11 11:15] LABS: HEMATOCRIT 44.5 % (36.0-47.0); HEMOGLOBIN 14.6 g/dL (12.0-15.5); RED BLOOD COUNT 5.11 x10^6/uL (3.50-5.40); RED CELL DISTRIBUTION WIDTH 14.9 % (11.5-14.5); WHITE BLOOD COUNT 8.6 x10^3/uL (4.0-11.0)
[2019-04-11] MEDS: LIDOCAINE (700MG/PATCH) PATCH. TD SCH (11:45)
--- NOTE | 2019-04-11 11:54 | PDOC ---
[facility] [facility] PROGRESS NOTE Chief Complaint Chief Complaint Acute abdominal pain Hypertensive emergency Acute encephalopathy Hematemesis Nausea and vomiting Hypokalemia Dehydration Hypercalcemia Hyperglycemia History of Present Illness History of Present Illness 04-11-19 Pt. seen and evaluated - vomited again earlier this morning Chart reviewed DW RN Vitals/I&O Vitals/I&O: Vital Signs Date Time Temp Pulse Resp B/P (MAP) Pulse Ox O2 Delivery O2 Flow Rate FiO2 04/11/19 08:00 Room Air 04/11/19 07:57 98.7 72 18 114/75 (88) 99 98.7 I & O 04/10/19 04/10/19 04/11/19 15:00 23:00 07:00 Intake Total 320 ml 360 ml Output Total 825 ml 120 ml Balance -825 ml 200 ml 360 ml Physical Exam General: Alert, Oriented X3, Cooperative Heart: Regular rate, No murmurs Lungs: Clear, Wheezing Abdomen: Soft, No masses Extremities: No clubbing, No cyanosis Skin: No rashes, No breakdown Labs Labs: Laboratory Tests Test 04/11/19 07:45 04/11/19 10:45 Sodium Level 132 mmol/L (136-145) Potassium Level 3.7 mmol/L (3.5-5.1) Chloride Level 98 mmol/L (98-107) Carbon Dioxide Level 20 mmol/L (21-32) Anion Gap 14 (6-14) Blood Urea Nitrogen 31 mg/dL (7-20) Creatinine 1.8 mg/dL (0.6-1.0) Estimated GFR (Cockcroft-Gault) 35.3 Glucose Level 103 mg/dL (70-99) Calcium Level 9.8 mg/dL (8.5-10.1) White Blood Count 8.6 x10^3/uL (4.0-11.0) Red Blood Count 5.11 x10^6/uL (3.50-5.40) Hemoglobin 14.6 g/dL (12.0-15.5) Hematocrit 44.5 % (36.0-47.0) Mean Corpuscular Volume 87 fL (79-100) Mean Corpuscular Hemoglobin 29 pg (25-35) Mean Corpuscular Hemoglobin Concent 33 g/dL (31-37) Red Cell Distribution Width 14.9 % (11.5-14.5) Platelet Count 150 x10^3/uL (140-400) Review of Systems Review of Systems: No headache No fever/chills Assessment and Plan Assessmemt and Plan Problems Medical Problems: (1) Abdominal pain Status: Acute (2) Hypertensive emergency Status: Acute (3) Narcotic dependence Status: Acute (4) Nausea and vomiting Status: Acute Acute abdominal pain Hypertensive emergency Acute encephalopathy Hematemesis Nausea and vomiting Hypokalemia Dehydration Hypercalcemia Hyperglycemia Plan awaiting gastric emptying test DVT prophylaxis home meds PT/OT D/C pending eval from GI Comment Review of Relevant I have reviewed the following items starr (where applicable) has been applied. Medications: Current Medications Medications (Trade) Dose Ordered Sig/Emile Route PRN Reason Start Time Stop Time Status Last Admin Dose Admin Lidocaine (Lidoderm) 1 patch DAILY TD 04/10/19 12:45 04/11/19 11:45 Miscellaneous (Lidoderm Patch Removal) 1 ea QHS 04/10/19 21:00 04/10/19 21:00 WHIT CABA III DO Apr 11, 2019 11:54
[2019-04-11] MEDS: SERTRALINE 50 MG TABLET. PO SCH (15:12)
--- NOTE | 2019-04-11 17:18 | RAD ---
Gastric Emptying Study: Clinical History: Abdominal pain 2.2 mCi of technetium 99m sulfur colloid was administered in solid meal and spot scanning was performed on a gamma camera for 4 hours for a 4 hour gastric emptying protocol. The gastric retention at one hour is 43%. At 2 hours is 20%, at 3 hours is 3% and at 4 hours is 0%. Gastric emptying half-life is 53 minutes. IMPRESSION: Normal gastric emptying study. Electronically signed by: Cornelio Salas MD (04/11/2019 5:15 PM) [place] [id number]
[2019-04-11] MEDS: POTASSIUM CHLORIDE 10 MEQ TABLET.ER. PO SCH (17:51)
[2019-04-11] MEDS: PATCH REMOVAL. MC SCH (21:00)
[2019-04-11] MEDS: ATORVASTATIN CALCIUM 10 MG TABLET. PO SCH (21:51)
[2019-04-11] MEDS: CYCLOBENZAPRINE 10 MG TABLET. PO SCH (21:51)
[2019-04-12 03:27] VITALS: BP 116/80
[2019-04-12] MEDS: SUCRALFATE 1 GM TABLET. PO SCH ×2 (05:57→11:03)
[2019-04-12] MEDS: HYDROcodone/APAP 5/325MG 1 TAB TABLET PO PRN ×2 (05:57→11:03)
[2019-04-12 07:00] VITALS: BP 140/86
[2019-04-12] MEDS ORDERED: PANTOPRAZOLE 40 MG TABLET.DR. PO SCH (07:30)
[2019-04-12] MEDS: LABETALOL HCL 100 MG TABLET. PO SCH (08:23)
[2019-04-12] MEDS: GABAPENTIN 300 MG CAPSULE. PO SCH (08:24)
[2019-04-12] MEDS: SERTRALINE 50 MG TABLET. PO SCH (08:24)
[2019-04-12] MEDS: POLYETHYLENE GLYCOL 3350 17 GM PACKET. PO SCH (08:24)
[2019-04-12 08:25] VITALS: BP 140/86
[2019-04-12] MEDS: amLODIPine BESYLATE 10 MG TABLET PO SCH (08:25)
[2019-04-12] MEDS: PROMETHAZINE 12.5 MG SUPP.RECT. RC SCH (08:27)
[2019-04-12 08:47] LABS: HEMATOCRIT 43.5 % (36.0-47.0); HEMOGLOBIN 14.1 g/dL (12.0-15.5); RED BLOOD COUNT 4.95 x10^6/uL (3.50-5.40); RED CELL DISTRIBUTION WIDTH 14.3 % (11.5-14.5); WHITE BLOOD COUNT 5.9 x10^3/uL (4.0-11.0)
[2019-04-12 08:56] LABS: CALCIUM 9.3 mg/dL (8.5-10.1); CREATININE 1.3 mg/dL (0.6-1.0); GFR 51.5; POTASSIUM 3.6 mmol/L (3.5-5.1)
[2019-04-12] MEDS: LIDOCAINE (700MG/PATCH) PATCH. TD SCH (11:01)
--- NOTE | 2019-04-12 11:17 | PDOC ---
[facility] [facility] PROGRESS NOTE Chief Complaint Chief Complaint Acute abdominal pain Hypertensive emergency Acute encephalopathy Hematemesis Nausea and vomiting Hypokalemia Dehydration Hypercalcemia Hyperglycemia History of Present Illness History of Present Illness 04-12-19 Pt. seen and examined Chart reviewed ANTONIO RN Vitals/I&O Vitals/I&O: Vital Signs Date Time Temp Pulse Resp B/P (MAP) Pulse Ox O2 Delivery O2 Flow Rate FiO2 04/12/19 11:03 100 Room Air 04/12/19 08:25 76 140/86 04/12/19 07:00 98.6 18 98.6 I & O 04/11/19 04/11/19 04/12/19 14:59 22:59 06:59 Intake Total 480 ml Balance 480 ml Physical Exam General: Alert, Oriented X3, Cooperative Heart: Regular rate, No murmurs Lungs: Clear, Wheezing Abdomen: Soft, No masses Extremities: No clubbing, No cyanosis Skin: No rashes, No breakdown Labs Labs: Laboratory Tests Test 04/12/19 08:00 White Blood Count 5.9 x10^3/uL (4.0-11.0) Red Blood Count 4.95 x10^6/uL (3.50-5.40) Hemoglobin 14.1 g/dL (12.0-15.5) Hematocrit 43.5 % (36.0-47.0) Mean Corpuscular Volume 88 fL (79-100) Mean Corpuscular Hemoglobin 29 pg (25-35) Mean Corpuscular Hemoglobin Concent 33 g/dL (31-37) Red Cell Distribution Width 14.3 % (11.5-14.5) Platelet Count 157 x10^3/uL (140-400) Sodium Level 135 mmol/L (136-145) Potassium Level 3.6 mmol/L (3.5-5.1) Chloride Level 100 mmol/L (98-107) Carbon Dioxide Level 22 mmol/L (21-32) Anion Gap 13 (6-14) Blood Urea Nitrogen 25 mg/dL (7-20) Creatinine 1.3 mg/dL (0.6-1.0) Estimated GFR (Cockcroft-Gault) 51.5 Glucose Level 122 mg/dL (70-99) Calcium Level 9.3 mg/dL (8.5-10.1) Review of Systems Review of Systems: No headache No fever/chills Assessment and Plan Assessmemt and Plan Problems Medical Problems: (1) Abdominal pain Status: Acute (2) Hypertensive emergency Status: Acute (3) Narcotic dependence Status: Acute (4) Nausea and vomiting Status: Acute Assessment: Acute abdominal pain Hypertensive emergency Acute encephalopathy Hematemesis Nausea and vomiting Hypokalemia Dehydration Hypercalcemia Hyperglycemia Plan: Pt. appears to be at baseline Will D/C pending ok from consultants Comment Review of Relevant I have reviewed the following items starr (where applicable) has been applied. Medications: Current Medications Medications (Trade) Dose Ordered Sig/Emile Route PRN Reason Start Time Stop Time Status Last Admin Dose Admin Pantoprazole Sodium (Protonix) 40 mg DAILYAC PO 04/12/19 07:30 04/12/19 08:24 WHIT CABA III DO Apr 12, 2019 11:17
--- NOTE | 2019-04-12 11:58 | PDOC ---
Subjective: Subjective: Less abd pain - "back to usual." Tolerating PO. Wants to leave, waiting for discharge papers - also needs to go outside right now to give her sister gas money - sister can't come in because she can't walk. Finished urine collection. Objective: Vital Signs: Vital Signs Date Time Temp Pulse Resp B/P (MAP) Pulse Ox O2 Delivery O2 Flow Rate FiO2 04/12/19 11:03 100 Room Air 04/12/19 08:25 76 140/86 04/12/19 07:00 98.6 18 98.6 Labs: Laboratory Tests Test 04/12/19 08:00 White Blood Count 5.9 x10^3/uL Red Blood Count 4.95 x10^6/uL Hemoglobin 14.1 g/dL Hematocrit 43.5 % Mean Corpuscular Volume 88 fL Mean Corpuscular Hemoglobin 29 pg Mean Corpuscular Hemoglobin Concent 33 g/dL Red Cell Distribution Width 14.3 % Platelet Count 157 x10^3/uL Sodium Level 135 mmol/L Potassium Level 3.6 mmol/L Chloride Level 100 mmol/L Carbon Dioxide Level 22 mmol/L Anion Gap 13 Blood Urea Nitrogen 25 mg/dL Creatinine 1.3 mg/dL Estimated GFR (Cockcroft-Gault) 51.5 Glucose Level 122 mg/dL Calcium Level 9.3 mg/dL Imaging: GES IMPRESSION: Normal gastric emptying study. PE: GEN: NAD - dressed to leave, make-up on NEURO/PSYCH: A & O �3 A/P: Recurrent n/v, abd pain - better HTN, MARAH - better -- Improved - she says plans for discharge. Continue PPI. Labs pending. ANDRES HOFFMAN Apr 12, 2019 11:58
--- NOTE | 2019-04-12 12:38 | NUR ---
Patient left the building with her daughter around 1235. Discharge education and paperwork given to the patient with no scripts. She is planning to stay with her daughter upon discharge. No other concerns noted at this time.
--- NOTE | 2019-04-12 13:21 | DS ---
DATE OF DISCHARGE: 04/12/2019 ADMISSION DIAGNOSES: Abdominal pain, hypertensive emergency, encephalopathy, hematemesis, nausea, vomiting, hypokalemia, dehydration. DISCHARGE DIAGNOSES: Resolving abdominal pain, resolving nausea and vomiting. HOSPITAL COURSE: The patient is a pleasant middle-aged female who presented with nausea, vomiting, abdominal pain. She was admitted. We consulted GI. We gave her antiemetics and fluids. It appears she has gastroparesis and GERD and constipation. We got those cleared today when I saw and examined her. She was at her baseline, was up, walking, requesting discharge. We plan to discharge with close outpatient followup. PHYSICAL EXAMINATION: HEART: Tones were normal. LUNGS: Clear. ABDOMEN: Soft. EXTREMITIES: No edema. We plan to discharge. DISPOSITION: Home. ACTIVITY: As tolerated. DIET: Low sodium. MEDICATIONS: Please see the MRAD. TOTAL TIME: 32 minutes. WHIT CABA DO DR: SHELBY/lev JOB#: [id number] / [id number]
[2019-04-16 14:11] LABS: ALDOSTERONE 8.8 ng/dL (0.0-30.0)
[2019-04-17 06:10] LABS: VMA UR 10.1 mg/L (Undefined)
== END 2019-04-12 12:35 | disposition home or self-care (01) | DRG 378 ==
LOC: ER 14:36 → ED HOLD 18:22 → 2 SOUTH 20:40 → 4 NORTH 04-10 13:56
PROVIDERS: ADMIT Internal Medicine; ATTEND Internal Medicine
DX: K92.0 Hematemesis (principal); I16.1 Hypertensive emergency; N17.9 Acute kidney failure, unspecified; F11.20 Opioid dependence, uncomplicated; G93.40 Encephalopathy, unspecified; K92.2 Gastrointestinal hemorrhage, unspecified; K31.84 Gastroparesis; B96.81 Helicobacter pylori [H. pylori] as the cause of diseases classified elsewhere; D75.1 Secondary polycythemia; R73.9 Hyperglycemia, unspecified; E78.00 Pure hypercholesterolemia, unspecified; E78.5 Hyperlipidemia, unspecified; E83.52 Hypercalcemia; E86.0 Dehydration; E87.6 Hypokalemia; F32.9 Major depressive disorder, single episode, unspecified; I10 Essential (primary) hypertension; K21.9 Gastro-esophageal reflux disease without esophagitis; K59.00 Constipation, unspecified; F41.9 Anxiety disorder, unspecified; M06.9 Rheumatoid arthritis, unspecified; Z82.49 Family history of ischemic heart disease and other diseases of the circulatory system; Z83.3 Family history of diabetes mellitus; Z87.11 Personal history of peptic ulcer disease; Z91.19 Patient's noncompliance with other medical treatment and regimen; Z98.51 Tubal ligation status; Z79.899 Other long term (current) drug therapy; Z88.0 Allergy status to penicillin
CPT/HCPCS: 36415; 74177; 76770; 78264; 80048; 80053; 80069; 80307; 81001; 82088; 82533; 83036; 83690; 83735; 83835; 84100; 84244; 84443; 84585; 85025; 85027; 96361; 96365; 96375; A9541; C9113; G0480; J0360; J1885; J2405; J2930; J3490; J7030; J7042; J7050; Q9967; 99285-25

== ENCOUNTER 2019-05-20 12:18 | Inpatient (IN) | payer SELFPAY ==
[~2019-05-20] VITALS: Ht 170.2 cm; Wt 56.5 kg
[~2019-05-20 12:18] MED LIST changes: -DULO60CA44 PO; +DULO60CA45 PO
[2019-05-20] MEDS ORDERED: ONDANSETRON PF 4 MG/2 ML VIAL. IV ONE ×2 (13:45→15:00)
[2019-05-20] MEDS ORDERED: MORPHINE SULFATE 4 MG/ML VIAL. IV ONE (13:45)
[2019-05-20] MEDS ORDERED: LABETALOL 20 MG/4 ML DISP.SYRIN. IVP ONE (13:45)
[2019-05-20 14:33] LABS: BASO # 0.1 x10^3/uL (0.0-0.2); BASO % 0 % (0-3); EOS % 0 % (0-3); HEMATOCRIT 56.9 % (36.0-47.0); HEMOGLOBIN 18.8 g/dL (12.0-15.5); LYMPH # 1.6 x10^3/uL (1.0-4.8); LYMPH % 9 % (24-48); MEAN CORPUSCULAR HEMOGLOBIN 28 pg (25-35); MEAN CORPUSCULAR HGB CONC 33 g/dL (31-37); MEAN CORPUSCULAR VOLUME 86 fL (79-100); MONO # 1.2 x10^3/uL (0.0-1.1); MONO % 7 % (0-9); NEUT # 15.2 x10^3/uL (1.8-7.7); NEUT % 84 % (31-73); PLATELET COUNT 177 x10^3/uL (140-400); RED BLOOD COUNT 6.63 x10^6/uL (3.50-5.40); RED CELL DISTRIBUTION WIDTH 14.8 % (11.5-14.5); WHITE BLOOD COUNT 18.2 x10^3/uL (4.0-11.0)
[2019-05-20 14:42] LABS: PROTHROMBIN TIME PATIENT 12.9 SEC (11.7-14.0)
--- NOTE | 2019-05-20 14:52 | RAD ---
Single view portable chest HISTORY: Chest pain today COMPARISON: 05/19/2017 image without report FINDINGS: Cardiomediastinal silhouette is stable and within normal limits. No evidence of pneumothorax. No pleural effusion. No evidence of infiltrate. Bilaterally symmetric nodular densities over both lung bases are likely nipple shadows and appears symmetrically located over the breasts. Similar finding was seen previously. No significant bone abnormality. IMPRESSION: 1. No acute infiltrate. 2. Symmetric nodules over the lung bases are thought to be nipple shadows. Electronically signed by: Perry Ying MD (05/20/2019 2:49 PM) [facility]
--- NOTE | 2019-05-20 14:56 | PDOC1 ---
History and Physical Date of Admission Date of Admission DATE: 05/20/19 TIME: 14:55 Identification/Chief Complaint Chief Complaint Intractable nausea and vomiting Source Source: Patient History of Present Illness History of Present Illness Ms Rajput is a 54yo F w/ PMHx Anxiety, Depression, GERD, High Cholesterol, Hypertension, PUD, Gastroparesis who presents to the ED today complaining of 10 out of 10 mid abdominal pain with vomiting of that began at 6 AM this morning, though she notes she vomited yesterday as well. Patient denies any diarrhea. Denies any fever. She does note some confusion. Denies any urgency frequency dysuria. She does note calf pain and cramping that began this afternoon. Patient arrived in the ED requesting we put an IV in right away and give her something for pain and vomiting. She was thrashing around the bed. Hemoglobin 17.1, hematocrit 50.9, Potassium of 3.5, patient was given oral potassium replacement and mag level returned 1.6. prominent T waves but no STEMI was identified normal sinus rhythm rate of 80 QTC 456 Blood pressure 224/134 over to the ED with a heart rate of 84. Patient has h istory of uncontrolled hypertension. Given labetalol IV, hydralazine IV, clonidine by mouth. Blood pressure 233/156. Given vasotec IV with minimal response. Called for admission for intractable nausea/vomiting and HTN emergency. Past Medical History Cardiovascular: HTN, Hyperlipidemia Pulmonary: No pertinent hx GI: GERD, Other Hepatobiliary: No pertinent hx Psych: Anxiety, Depression Rheumatologic: Rheumatoid arthritis Infectious disease: No pertinent hx Renal/: No pertinent hx Endocrine: No pertinent hx Past Surgical History Past Surgical History: Other Family History Family History: Diabetes, Heart Disease Social History Smoke: No ALCOHOL: none Drugs: Marijuana Current Medications Current Medications Current Medications Morphine Sulfate (Morphine Sulfate) 4 mg 1X ONCE IV Last administered on 05/20/19at 14:21; Start 05/20/19 at 13:45; Stop 05/20/19 at 13:46; Status DC Ondansetron HCl (Zofran) 4 mg 1X ONCE IV Last administered on 05/20/19at 14:21; Start 05/20/19 at 13:45; Stop 05/20/19 at 13:46; Status DC Labetalol HCl (Normodyne Iv Push) 20 mg 1X ONCE IVP Last administered on 05/20/19at 14:21; Start 05/20/19 at 13:45; Stop 05/20/19 at 13:46; Status DC Amlodipine Besylate (Norvasc) 10 mg DAILY PO ; Start 05/21/19 at 09:00; Status UNV Atorvastatin Calcium (Lipitor) 10 mg DAILY PO ; Start 05/21/19 at 09:00; Status UNV Cyclobenzaprine HCl (Flexeril) 10 mg QHS PO ; Start 05/20/19 at 21:00; Status UNV Gabapentin (Neurontin) 300 mg TID PO ; Start 05/20/19 at 21:00; Status UNV Acetaminophen/ Hydrocodone Bitart (Lortab 5/325) 1 tab PRN Q4HRS PRN PO PAIN; Start 05/20/19 at 15:00; Status UNV Hydroxyzine HCl (Atarax) 50 mg PRN Q6HRS PRN PO ; Start 05/20/19 at 15:00; Status UNV Labetalol HCl (Trandate) 100 mg BID PO ; Start 05/20/19 at 21:00; Status UNV Ondansetron HCl (Zofran Odt) 4 mg Q8HRS PO ; Start 05/20/19 at 22:00; Status UNV Prochlorperazine Maleate (Compazine) 5 mg PRN TID PRN PO NAUSEA; Start 05/20/19 at 15:00; Status UNV Promethazine HCl (Phenergan Supp) 12.5 mg BID RC ; Start 05/20/19 at 21:00; Status UNV Sucralfate (Carafate) 1 gm QID PO ; Start 05/20/19 at 17:00; Status UNV Non-Formulary Medication (Omeprazole ) 20 mg BID PO ; Start 05/20/19 at 21:00; Status UNV Non-Formulary Medication (Ondansetron Hcl (Zofran)) 1 tab Q6HRS PO ; Start 05/20/19 at 18:00; Status UNV Active Scripts Active Zofran (Ondansetron Hcl) 4 Mg Tablet 1 Tab PO Q6HRS Labetalol Hcl 100 Mg Tablet 100 Mg PO BID Hydrocodone-Apap 5-325 (Hydrocodone Bit/Acetaminophen) 1 Tab Tablet 1 Tab PO PRN Q4HRS PRN Carafate (Sucralfate) 1 Gm Tablet 1 Tab PO QID Omeprazole 20 Mg Tablet.dr 20 Mg PO BID Potassium Chloride 10 Meq Tablet.er 10 Meq PO DAILYBFRSUP 7 Days Zofran Odt (Ondansetron) 4 Mg Tab.rapdis 1 Tab SL Q8HRS Phenergan (Promethazine HCl) 12.5 Mg Supp.rect 12.5 Mg RC BID 5 Days Reported Hydroxyzine Hcl 25 Mg Tablet 50 Mg PO PRN Q6HRS PRN Zoloft (Sertraline Hcl) 100 Mg Tablet 1 Tab PO DAILY Prochlorperazine Maleate 5 Mg Tablet 5 Mg PO PRN TID PRN Cyclobenzaprine Hcl 10 Mg Tablet 1 Tab PO QHS Amlodipine Besylate 10 Mg Tablet 10 Mg PO DAILY Gabapentin 300 Mg Capsule 300 Mg PO TID Atorvastatin Calcium 10 Mg Tablet 1 Tab PO DAILY Allergies Allergies: Coded Allergies: Penicillins (Verified Allergy, Intermediate, 12/01/16) ROS General: YES: Fatigue, Malaise, Appetite; No: Chills, Night Sweats, Other PSYCHOLOGICAL ROS: YES: Anxiety, Behavioral Disorder, Depression, Irritablity; No: Concentration difficultie, Decreased libido, Disorientation, Hallucinations, Hostility, Memory difficulties, Mood Swings, Obsessive thoughts, Physical abuse, Sexual abuse, Sleep disturbances, Suicidal ideation, Other Eyes: No Blurry vision, No Decreased vision, No Double vision, No Dry eyes, No Excessive tearing, No Eye Pain, No Itchy Eyes, No Loss of vision, No Photophobia, No Scotomata, No Uses contacts, No Uses glasses, No Other HEENT: No: Heacaches, Visual Changes, Hearing change, Nasal congestion, Nasal discharge, Oral lesions, Sinus pain, Sore Throat, Epistaxis, Sneezing, Snoring, Tinnitus, Vertigo, Vocal changes, Other ALLERGY AND IMMUNOLOGY: No: Hives, Insect Bite Sensitivity, Itchy/Watery Eyes, Nasal Congestion, Post Nasal Drip, Seasonal Allergies, Other Hematological and Lymphatic: No: Bleeding Problems, Blood Clots, Blood Transfusions, Brusing, Night Sweats, Pallor, Swollen Lymph Nodes, Other ENDOCRINE: No: Breast Changes, Galactorrhea, Hair Pattern Changes, Hot Flashes, Malaise/lethargy, Mood Swings, Palpitations, Polydipsia/polyuria, Skin Changes, Temperature Intolerance, Unexpected Weight Changes, Other Breast: No New/Changing Breast Lumps, No Nipple changes, No Nipple discharge, No Other Respiratory: No: Cough, Hemoptysis, Orthopnea, Pleuritic Pain, Shortness of breath, SOB with excertion, Sputum Changes, Stridor, Tachypnea, Wheezing, Other Cardiovascular: No Chest Pain, No Palpitations, No Orthopnea, No Paroxysmal Noc. Dyspnea, No Edema, No Lt Headedness, No Other Gastrointestinal: Yes Nausea, Yes Vomiting, Yes Abdominal Pain; No Diarrhea, No Constipation, No Melena, No Hematochezia, No Other Genitourinary: No Dysuria, No Frequency, No Incontinence, No Hematuria, No Retention, No Discharge, No Urgency, No Pain, No Flank Pain, No Other, No , No , No , No , No , No , No Musculoskeletal: No Gait Disturbance, No Joint Pain, No Joint Stiffness, No Joint Swelling, No Muscle Pain, No Muscular Weakness, No Pain In:, No Swelling In:, No Other Neurological: No Behavorial Changes, No Bowel/Bladder ControlChng, No Confusion, No Dizziness, No Gait Disturbance, No Headaches, No Impaired Coord/balance, No Memory Loss, No Numbness/Tingling, No Seizures, No Speech P roblems, No Tremors, No Visual Changes, No Weakness, No Other Skin: No Dry Skin, No Eczema, No Hair Changes, No Lumps, No Mole Changes, No Mottling, No Nail Changes, No Pruritus, No Rash, No Skin Lesion Changes, No Other, No Acne Physical Exam General: Alert, Cooperative, mild distress HEENT: Atraumatic, PERRLA, EOMI, Mucous membr. moist/pink Lungs: Clear to auscultation, Normal air movement Heart: S1S2, RRR Abdomen: Normal bowel sounds, Soft, No hepatosplenomegaly, No masses, Other (epigastric tenderness) Rectal Exam: not examined Extremities: No clubbing, No cyanosis, No edema, Normal pulses, No tenderness/swelling Skin: No rashes, No breakdown, No significant lesion Neuro: Normal gait, Normal speech, Strength at 5/5 X4 ext, Normal tone, Sensation intact, Cranial nerves 3-12 NL, Reflexes 2+ Psych/Mental Status: Mental status NL, Mood NL Vitals Vitals Vital Signs Date Time Temp Pulse Resp B/P (MAP) Pulse Ox O2 Delivery O2 Flow Rate FiO2 05/20/19 14:21 122 217/150 05/20/19 13:05 98.4 20 100 Room Air 98.4 Labs Labs Laboratory Tests Test 05/20/19 14:15 White Blood Count 18.2 x10^3/uL (4.0-11.0) Red Blood Count 6.63 x10^6/uL (3.50-5.40) Hemoglobin 18.8 g/dL (12.0-15.5) Hematocrit 56.9 % (36.0-47.0) Mean Corpuscular Volume 86 fL (79-100) Mean Corpuscular Hemoglobin 28 pg (25-35) Mean Corpuscular Hemoglobin Concent 33 g/dL (31-37) Red Cell Distribution Width 14.8 % (11.5-14.5) Platelet Count 177 x10^3/uL (140-400) Neutrophils (%) (Auto) 84 % (31-73) Lymphocytes (%) (Auto) 9 % (24-48) Monocytes (%) (Auto) 7 % (0-9) Eosinophils (%) (Auto) 0 % (0-3) Basophils (%) (Auto) 0 % (0-3) Neutrophils # (Auto) 15.2 x10^3/uL (1.8-7.7) Lymphocytes # (Auto) 1.6 x10^3/uL (1.0-4.8) Monocytes # (Auto) 1.2 x10^3/uL (0.0-1.1) Eosinophils # (Auto) 0.0 x10^3/uL (0.0-0.7) Basophils # (Auto) 0.1 x10^3/uL (0.0-0.2) Prothrombin Time 12.9 SEC (11.7-14.0) Prothromb Time International Ratio 1.0 (0.8-1.1) Laboratory Tests Test 05/20/19 14:15 White Blood Count 18.2 x10^3/uL (4.0-11.0) Red Blood Count 6.63 x10^6/uL (3.50-5.40) Hemoglobin 18.8 g/dL (12.0-15.5) Hematocrit 56.9 % (36.0-47.0) Mean Corpuscular Volume 86 fL (79-100) Mean Corpuscular Hemoglobin 28 pg (25-35) Mean Corpuscular Hemoglobin Concent 33 g/dL (31-37) Red Cell Distribution Width 14.8 % (11.5-14.5) Platelet Count 177 x10^3/uL (140-400) Neutrophils (%) (Auto) 84 % (31-73) Lymphocytes (%) (Auto) 9 % (24-48) Monocytes (%) (Auto) 7 % (0-9) Eosinophils (%) (Auto) 0 % (0-3) Basophils (%) (Auto) 0 % (0-3) Neutrophils # (Auto) 15.2 x10^3/uL (1.8-7.7) Lymphocytes # (Auto) 1.6 x10^3/uL (1.0-4.8) Monocytes # (Auto) 1.2 x10^3/uL (0.0-1.1) Eosinophils # (Auto) 0.0 x10^3/uL (0.0-0.7) Basophils # (Auto) 0.1 x10^3/uL (0.0-0.2) Prothrombin Time 12.9 SEC (11.7-14.0) Prothromb Time International Ratio 1.0 (0.8-1.1) Images Images CXR - no acute abnormality Abd US - 1. Increased renal cortical echogenicity, can be seen with medical renal disease. 2. No other significant sonographic abnormality. VTE Prophylaxis Ordered VTE Prophylaxis Devices: No VTE Pharmacological Prophylaxi: Yes Assessment/Plan Assessment/Plan A/P: Hypertensive emergency - admit to telemetry, Labetalol prn Acute encephalopathy - she is aware she is confused, no focal neuro deficits. With her BP coming down she feels improved. Acute abdominal pain - uncertain etiology, known well to GI service, will consult if necessary Nausea and vomiting - intractable, will keep meds IV, zofran, compazine until able to take PO Hypokalemia - replace IV and po, check mag. Hypomagnesemia - will replace in AM Dehydration - from pain and nausea and poor PO intake, , IV fluid Hypercalcemia - 10.3 will give IVF. Monitor, check phos, vitamin D levels Hyperglycemia - will monitor Leukocytosis - likely from vomiting and element of hemoconcentration FEN - General diet PPX - GI Bleed FULL CODE Inpatient CVC for hypertensive emergency, likely 2 midnights. REGULO CUEVA MD May 20, 2019 14:56
[2019-05-20 15:00] LABS: % BANDS 9 % (0-9); % LYMPHS 9 % (24-48); % MONOS 6 % (0-10); % SEGS 76 % (35-66); ALBUMIN 4.9 g/dL (3.4-5.0); ALBUMIN/GLOBULIN RATIO 0.9 (1.0-1.7); CALCIUM 10.3 mg/dL (8.5-10.1); CREATININE 1.1 mg/dL (0.6-1.0); GFR 62.4; MAGNESIUM 1.6 mg/dL (1.8-2.4); PLT ESTIMATE ADEQUATE (ADEQUATE); TOTAL BILIRUBIN 1.2 mg/dL (0.2-1.0); TOTAL PROTEIN 10.4 g/dL (6.4-8.2)
[2019-05-20] MEDS ORDERED: hydrOXYzine 25 MG TABLET PO PRN (15:00)
[2019-05-20] MEDS ORDERED: PROCHLORPERAZINE 5 MG TABLET. PO PRN (15:00)
[2019-05-20 15:21] LABS: POTASSIUM 3.5 mmol/L (3.5-5.1)
[2019-05-20] MEDS ORDERED: ONDANSETRON ODT 4 MG TAB.RAPDIS. PO PRN ×2 (16:10→16:15)
--- NOTE | 2019-05-20 16:11 | PHYS DOC ---
Past Medical History Past Medical History: Hypertension, Other Additional Past Medical Histor: stomach ulcers Past Surgical History: No Surgical History Additional Past Surgical Histo: foot surgery, explor. abd sx Alcohol Use: None Drug Use: None Adult General Chief Complaint Chief Complaint: ABDOMINAL PAIN HPI HPI Patient is a 54 year old female who is presenting with chief complaint of upper abdominal pain as well as frequent vomiting patient has had symptoms now for a couple of days she does take blood pressure medication she has been unable to keep it down due to the severity of her vomiting she says that she noticed some blood in her vomit as well no fever that she knows of but she has been sweaty and hot and the pain is radiating diffusely in her abdomen The patient has had frequent visits the emergency room and admission to the hospital for several similar complaints she had a CT abdomen and pelvis was essentially negative acute as well as a gastric banding study that was negative and the last couple of months. She doesn't she still has her gallbladder but she has not yet had an ultrasound of the right upper quadrant that has been ordered at this time it is currently pending Review of Systems Review of Systems Constitutional: Denies fever or chills [] Eyes: Denies change in visual acuity, redness, or eye pain [] HENT: Denies nasal congestion or sore throat [] Respiratory: Denies cough or shortness of breath [] Cardiovascular: No additional information not addressed in HPI [] GI: Denies abdominal pain, nausea, vomiting, bloody stools or diarrhea [] : Denies dysuria or hematuria [] Musculoskeletal: Denies back pain or joint pain [] Integument: Denies rash or skin lesions [] Neurologic: Denies headache, focal weakness or sensory changes [] Endocrine: Denies polyuria or polydipsia [] All other systems were reviewed and found to be within normal limits, except as documented in this note. Current Medications Current Medications Current Medications Medications (Trade) Dose Ordered Sig/Emile Start Time Stop Time Status Last Admin Dose Admin Acetaminophen/ Hydrocodone Bitart (Lortab 5/325) 1 tab PRN Q4HRS PRN 05/20/19 15:00 UNV Amlodipine Besylate (Norvasc) 10 mg DAILY 05/21/19 09:00 UNV Atorvastatin Calcium (Lipitor) 10 mg DAILY 05/21/19 09:00 UNV Cyclobenzaprine HCl (Flexeril) 10 mg QHS 05/20/19 21:00 UNV Gabapentin (Neurontin) 300 mg TID 05/20/19 21:00 UNV Hydroxyzine HCl (Atarax) 50 mg PRN Q6HRS PRN 05/20/19 15:00 UNV Labetalol HCl (Normodyne Iv Push) 20 mg 1X ONCE 05/20/19 13:45 05/20/19 13:46 DC 05/20/19 14:21 20 MG Labetalol HCl (Trandate) 100 mg BID 05/20/19 21:00 UNV Morphine Sulfate (Morphine Sulfate) 4 mg 1X ONCE 05/20/19 13:45 05/20/19 13:46 DC 05/20/19 14:21 4 MG Non-Formulary Medication (Omeprazole ) 20 mg BID 05/20/19 21:00 UNV Non-Formulary Medication (Ondansetron Hcl (Zofran)) 1 tab Q6HRS 05/20/19 18:00 UNV Non-Formulary Medication (Sertraline Hcl (Zoloft)) 1 tab DAILY 05/21/19 09:00 UNV Ondansetron HCl (Zofran Odt) 4 mg Q8HRS 05/20/19 22:00 UNV Ondansetron HCl (Zofran) 4 mg 1X ONCE 05/20/19 15:00 05/20/19 15:01 DC Prochlorperazine Maleate (Compazine) 5 mg PRN TID PRN 05/20/19 15:00 UNV Promethazine HCl (Phenergan Supp) 12.5 mg BID 05/20/19 21:00 UNV Sucralfate (Carafate) 1 gm QID 05/20/19 17:00 UNV Allergies Allergies Allergies Coded Allergies Type Severity Reaction Last Updated Verified Penicillins Allergy Intermediate 12/01/16 Yes Physical Exam Physical Exam Constitutional: Well developed, []Cachectic and appears uncomfortable at [facility] and evaluation HENT: Normocephalic, atraumatic, bilateral external ears normal, oropharynx moist, no oral exudates, nose normal. [] Eyes: PERRLA, EOMI, conjunctiva normal, no discharge. [] Neck: Normal range of motion, no tenderness, supple, no stridor. [] Cardiovascular: Tachycardic no definite murmurs somewhat limited evaluation due to patient compliance Lungs & Thorax: Bilateral breath sounds clear to auscultation [] Abdomen: Bowel sounds normal, soft, epigastric and right upper quadrant tenderness, no masses, no pulsatile masses. [] Skin: Diaphoresis] Back: No tenderness, no CVA tenderness. [] Extremities: No tenderness, no cyanosis, no clubbing, ROM intact, no edema. [] Neurologic: Alert and oriented X 3, normal motor function, normal sensory function, no focal deficits noted. [] Psychologic: Affect normal, judgement normal, mood normal. [] Current Patient Data Vital Signs Vital Signs Date Time Temp Pulse Resp B/P (MAP) Pulse Ox O2 Delivery O2 Flow Rate FiO2 05/20/19 14:21 122 217/150 05/20/19 13:05 98.4 20 100 Room Air 98.4 Lab Values Laboratory Tests Test 05/20/19 14:15 White Blood Count 18.2 x10^3/uL (4.0-11.0) H Red Blood Count 6.63 x10^6/uL (3.50-5.40) H Hemoglobin 18.8 g/dL (12.0-15.5) H Hematocrit 56.9 % (36.0-47.0) H Mean Corpuscular Volume 86 fL (79-100) Mean Corpuscular Hemoglobin 28 pg (25-35) Mean Corpuscular Hemoglobin Concent 33 g/dL (31-37) Red Cell Distribution Width 14.8 % (11.5-14.5) H Platelet Count 177 x10^3/uL (140-400) Neutrophils (%) (Auto) 84 % (31-73) H Lymphocytes (%) (Auto) 9 % (24-48) L Monocytes (%) (Auto) 7 % (0-9) Eosinophils (%) (Auto) 0 % (0-3) Basophils (%) (Auto) 0 % (0-3) Neutrophils # (Auto) 15.2 x10^3/uL (1.8-7.7) H Lymphocytes # (Auto) 1.6 x10^3/uL (1.0-4.8) Monocytes # (Auto) 1.2 x10^3/uL (0.0-1.1) H Eosinophils # (Auto) 0.0 x10^3/uL (0.0-0.7) Basophils # (Auto) 0.1 x10^3/uL (0.0-0.2) Segmented Neutrophils % 76 % (35-66) H Band Neutrophils % 9 % (0-9) Lymphocytes % 9 % (24-48) L Monocytes % 6 % (0-10) Platelet Estimate Adequate (ADEQUATE) Prothrombin Time 12.9 SEC (11.7-14.0) Prothrombin Time INR 1.0 (0.8-1.1) Sodium Level 135 mmol/L (136-145) L Potassium Level 3.5 mmol/L (3.5-5.1) Chloride Level 93 mmol/L (98-107) L Carbon Dioxide Level 22 mmol/L (21-32) Anion Gap 20 (6-14) H Blood Urea Nitrogen 17 mg/dL (7-20) Creatinine 1.1 mg/dL (0.6-1.0) H Estimated GFR (Cockcroft-Gault) 62.4 BUN/Creatinine Ratio 15 (6-20) Glucose Level 180 mg/dL (70-99) H Calcium Level 10.3 mg/dL (8.5-10.1) H Magnesium Level 1.6 mg/dL (1.8-2.4) L Total Bilirubin 1.2 mg/dL (0.2-1.0) H Aspartate Amino Transferase (AST) 28 U/L (15-37) Alanine Aminotransferase (ALT) 19 U/L (14-59) Alkaline Phosphatase 123 U/L (46-116) H Troponin I Quantitative < 0.017 ng/mL (0.000-0.055) Total Protein 10.4 g/dL (6.4-8.2) H Albumin 4.9 g/dL (3.4-5.0) Albumin/Globulin Ratio 0.9 (1.0-1.7) L Lipase 88 U/L (73-393) Laboratory Tests 05/20/19 14:15 Laboratory Tests 05/20/19 14:15 EKG EKG []Patient is prominent T waves but no STEMI was identified normal sinus rhythm rate of 80 QTC 456 and interpreted by me time of encounter Radiology/Procedures Radiology/Procedures [] Impressions: FINDINGS: Cardiomediastinal silhouette is stable and within normal limits. No evidence of pneumothorax. No pleural effusion. No evidence of infiltrate. Bilaterally symmetric nodular densities over both lung bases are likely nipple shadows and appears symmetrically located over the breasts. Similar finding was seen previously. No significant bone abnormality. IMPRESSION: 1. No acute infiltrate. 2. Symmetric nodules over the lung bases are thought to be nipple shadows. Electronically signed by: Perry Ying MD (05/20/2019 2:49 PM) [facility] DICTATED and SIGNED BY: PERRY YING MD DATE: 05/20/19 1445 Course & Med Decision Making Course & Med Decision Making Pertinent Labs and Imaging studies reviewed. (See chart for details) []54-year-old female with a history of hypertension cyclic vomiting syndrome frequent ER visits for similar symptoms who comes in with vomiting and nausea frequency significant abdominal pain mostly upper pole recent evaluations were essentially unrevealing today the patient does have a leukocytosis as well as e vidence of hemoconcentration based on H&H Lipase is normal she says she still has her gallbladder so I will order an abdominal right upper quadrant ultrasound that is currently pending at this time. Patient got labetalol and IV pain medication and IV fluids in the emergency room with significant improvement in her symptoms and her blood pressure. I spoke with Dr. Hua PLAN TO ADMIT for monitoring and treatment of bp and symtpoms. Dragon Disclaimer Dragon Disclaimer This electronic medical record was generated, in whole or in part, using a voice recognition dictation system. Departure Departure Impression: Primary Impression: Intractable vomiting with nausea Additional Impression: Hypertensive emergency Disposition: 09 ADMITTED INPATIENT Admitting Physician: HIMS Condition: STABLE Referrals: UNKNOWN PCP NAME (PCP) Problem Qualifiers GIOVANA MALIN MD May 20, 2019 16:11
[2019-05-20] MEDS ORDERED: MAGNESIUM SULFATE 1GM 100 ML IV ONE (16:15)
[2019-05-20] MEDS ORDERED: ONDANSETRON PF 4 MG/2 ML VIAL. IV PRN (16:15)
--- NOTE | 2019-05-20 16:34 | RAD ---
Limited abdomen ultrasound HISTORY: Epigastric pain. FINDINGS: Visualized pancreas appears unremarkable. IVC is patent. Liver appears unremarkable and not enlarged. No evidence of gallstone or gallbladder wall thickening. No significant biliary ductal dilatation. Right kidney measures 10.1 cm without hydronephrosis. The right kidney demonstrates increased cortical echogenicity. IMPRESSION: 1. Increased renal cortical echogenicity, can be seen with medical renal disease. 2. No other significant sonographic abnormality. Electronically signed by: Perry Ying MD (05/20/2019 4:31 PM) [facility]
[2019-05-20] MEDS ORDERED: MAGNESIUM SULFATE 4GM 100 ML IV ONE (16:45)
[2019-05-20] MEDS ORDERED: POTASSIUM CHLORIDE 20 MEQ TABLET.ER. PO ONE (16:45)
--- NOTE | 2019-05-20 17:06 | EKG ---
[facility] [address] [place] [address] Test Date: 2019-05-20 Test Time: 14:33:05 Pat Name: DANIELA MANUEL Department: Room: Gender: F Deaf Interpreter: : 1965 Requested By: GIOVANA MALIN Order Number: [id number] Reading MD: Measurements Intervals [place] Rate: 79 P: 69 NV: 156 QRS: 53 QRSD: 82 T: 59 QT: 392 QTc: 455 Interpretive Statements SINUS RHYTHM BIATRIAL ENLARGEMENT MODERATE AMPLITUDE CRITERIA FOR LVH NON SPECIFIC ST-T ABNORMALITY (ELEVATION) ABNORMAL ECG No previous ECG available for comparison
[2019-05-20] MEDS: IV NORMAL SALINE 1000ML BAG 1,000 ML IV SCH (17:22)
[2019-05-20] MEDS ORDERED: NON FORMULARY ITEM (Ondansetron Hcl (Zofran) 1 TAB) PO SCH (18:00)
[2019-05-20 18:14] LABS: BILIRUBIN,URINE NEGATIVE (NEG); CLARITY,URINE CLEAR; COLOR,URINE YELLOW; NITRITE,URINE NEGATIVE (NEG); PROTEIN,URINE >=300 mg/dL (NEG-TRACE); UROBILINOGEN,URINE 0.2 mg/dL (0.2 mg/dL)
[2019-05-20 18:22] LABS: BARBITURATES NEG (NEG); BENZODIAZEPINES NEG (NEG); CANNABINOIDS NEG (NEG); COCAINE NEG (NEG); METHADONE NEG (NEG); OPIATES POS (NEG); PHENCYCLIDINE NEG (NEG)
[2019-05-20 18:23] LABS: BACTERIA,URINE FEW /HPF (0-FEW); WBC,URINE OCC /HPF (0-4)
[2019-05-20 18:24] LABS: AMORPHOUS SEDIMENT,UR PRESENT /HPF; HYALINE CASTS, URINE FEW /HPF; SQUAMOUS EPITHELIAL CELL,UR OCC /LPF
[2019-05-20 18:29] LABS: AMPHETAMINE/METHAMPHETAMINE NEG (NEG)
[2019-05-20 18:45] VITALS: BP 146/102
[2019-05-20] MEDS ORDERED: LABETALOL 20 MG/4 ML DISP.SYRIN. IVP PRN (20:00)
[2019-05-20] MEDS: SUCRALFATE 1 GM TABLET. PO SCH ×2 (20:24→20:34)
[2019-05-20] MEDS: POTASSIUM CHLORIDE 10MEQ 100 ML IV SCH ×2 (20:24→21:34)
[2019-05-20] MEDS: HYDROcodone/APAP 5/325MG 1 TAB TABLET PO PRN (20:25)
[2019-05-20] MEDS ORDERED: PROMETHAZINE 12.5 MG SUPP.RECT. RC PRN (21:00)
[2019-05-20] MEDS ORDERED: CYCLOBENZAPRINE 10 MG TABLET. PO SCH (21:00)
[2019-05-20] MEDS ORDERED: ATORVASTATIN CALCIUM 10 MG TABLET. PO SCH (21:00)
[2019-05-20] MEDS: HEPARIN for SUB-Q USE 5,000 UNIT/ML VIAL. SQ SCH (21:35)
[2019-05-20] MEDS: GABAPENTIN 300 MG CAPSULE. PO SCH (21:35)
[2019-05-20] MEDS: LABETALOL HCL 100 MG TABLET. PO SCH (21:36)
[2019-05-20 23:50] VITALS: BP 121/96
[2019-05-21] MEDS: IV NORMAL SALINE 1000ML BAG 1,000 ML IV SCH ×2 (02:05→12:05)
[2019-05-21 03:13] VITALS: BP 150/111
[2019-05-21 03:16] VITALS: BP 147/113
[2019-05-21] MEDS: HYDROcodone/APAP 5/325MG 1 TAB TABLET PO PRN ×2 (03:26→07:50)
[2019-05-21 05:35] LABS: BASO % 0 % (0-3); EOS % 0 % (0-3); HEMATOCRIT 49.7 % (36.0-47.0); HEMOGLOBIN 16.6 g/dL (12.0-15.5); LYMPH # 2.4 x10^3/uL (1.0-4.8); LYMPH % 20 % (24-48); MEAN CORPUSCULAR HEMOGLOBIN 29 pg (25-35); MEAN CORPUSCULAR HGB CONC 33 g/dL (31-37); MEAN CORPUSCULAR VOLUME 86 fL (79-100); MONO % 8 % (0-9); NEUT # 8.7 x10^3/uL (1.8-7.7); NEUT % 71 % (31-73); PLATELET COUNT 137 x10^3/uL (140-400); RED BLOOD COUNT 5.81 x10^6/uL (3.50-5.40); WHITE BLOOD COUNT 12.2 x10^3/uL (4.0-11.0)
[2019-05-21 05:52] LABS: CALCIUM 9.6 mg/dL (8.5-10.1); CREATININE 1.5 mg/dL (0.6-1.0); GFR 43.6; MAGNESIUM 3.5 mg/dL (1.8-2.4); POTASSIUM 4.8 mmol/L (3.5-5.1)
[2019-05-21] MEDS: HEPARIN for SUB-Q USE 5,000 UNIT/ML VIAL. SQ SCH ×2 (06:05→14:00)
[2019-05-21 07:00] VITALS: BP 132/94
[2019-05-21] MEDS ORDERED: PANTOPRAZOLE 40 MG TABLET.DR. PO SCH (07:30)
[2019-05-21] MEDS: GABAPENTIN 300 MG CAPSULE. PO SCH ×2 (09:00→14:00)
[2019-05-21] MEDS ORDERED: SERTRALINE 50 MG TABLET. PO SCH (09:00)
[2019-05-21] MEDS ORDERED: amLODIPine BESYLATE 10 MG TABLET PO SCH (09:00)
[2019-05-21] MEDS: LABETALOL HCL 100 MG TABLET. PO SCH (09:00)
[2019-05-21] MEDS: SUCRALFATE 1 GM TABLET. PO SCH ×2 (09:00→12:53)
[2019-05-21 11:00] VITALS: BP 131/100
[2019-05-21] MEDS ORDERED: PROC5TAB2 PO (14:21)
[2019-05-21] MEDS ORDERED: ONDA4TAB7 PO (14:21)
[2019-05-21] MEDS ORDERED: HYDR-2761 PO (14:21)
[2019-05-21] MEDS ORDERED: AMIT10TA PO (14:21)
[2019-05-21] MEDS ORDERED: PANT40TA77 PO (14:21)
--- NOTE | 2019-05-21 14:25 | PDOC3 ---
Discharge Summary Visit Information Date of Admission: May 20, 2019 Date of Discharge: May 21, 2019 Admitting Diagnosis Comment: cyclic vomiting Depression NOS on sertraline with accelerated hypertension POA better without change in home meds AK I VMN secondary to GI loss, creatinine 1.5 Mild thrombocytopenia 137 Final Diagnosis Problems Medical Problems: (1) Intractable vomiting with nausea Status: Acute Brief Hospital Course Allergies Allergies Coded Allergies Type Severity Reaction Last Updated Verified Penicillins Allergy Intermediate 12/01/16 Yes Vital Signs Vital Signs Date Time Temp Pulse Resp B/P (MAP) Pulse Ox O2 Delivery O2 Flow Rate FiO2 05/21/19 11:00 98.1 80 18 131/100 (110) 98 Room Air 98.1 Lab Results Laboratory Tests Test 05/20/19 14:15 05/20/19 17:50 05/21/19 04:35 White Blood Count 18.2 x10^3/uL (4.0-11.0) 12.2 x10^3/uL (4.0-11.0) Red Blood Count 6.63 x10^6/uL (3.50-5.40) 5.81 x10^6/uL (3.50-5.40) Hemoglobin 18.8 g/dL (12.0-15.5) 16.6 g/dL (12.0-15.5) Hematocrit 56.9 % (36.0-47.0) 49.7 % (36.0-47.0) Mean Corpuscular Volume 86 fL (79-100) 86 fL (79-100) Mean Corpuscular Hemoglobin 28 pg (25-35) 29 pg (25-35) Mean Corpuscular Hemoglobin Concent 33 g/dL (31-37) 33 g/dL (31-37) Red Cell Distribution Width 14.8 % (11.5-14.5) 15.0 % (11.5-14.5) Platelet Count 177 x10^3/uL (140-400) 137 x10^3/uL (140-400) Neutrophils (%) (Auto) 84 % (31-73) 71 % (31-73) Lymphocytes (%) (Auto) 9 % (24-48) 20 % (24-48) Monocytes (%) (Auto) 7 % (0-9) 8 % (0-9) Eosinophils (%) (Auto) 0 % (0-3) 0 % (0-3) Basophils (%) (Auto) 0 % (0-3) 0 % (0-3) Neutrophils # (Auto) 15.2 x10^3/uL (1.8-7.7) 8.7 x10^3/uL (1.8-7.7) Lymphocytes # (Auto) 1.6 x10^3/uL (1.0-4.8) 2.4 x10^3/uL (1.0-4.8) Monocytes # (Auto) 1.2 x10^3/uL (0.0-1.1) 1.0 x10^3/uL (0.0-1.1) Eosinophils # (Auto) 0.0 x10^3/uL (0.0-0.7) 0.0 x10^3/uL (0.0-0.7) Basophils # (Auto) 0.1 x10^3/uL (0.0-0.2) 0.0 x10^3/uL (0.0-0.2) Segmented Neutrophils % 76 % (35-66) Band Neutrophils % 9 % (0-9) Lymphocytes % 9 % (24-48) Monocytes % 6 % (0-10) Platelet Estimate Adequate (ADEQUATE) Prothrombin Time 12.9 SEC (11.7-14.0) Prothromb Time International Ratio 1.0 (0.8-1.1) Sodium Level 135 mmol/L (136-145) 133 mmol/L (136-145) Potassium Level 3.5 mmol/L (3.5-5.1) 4.8 mmol/L (3.5-5.1) Chloride Level 93 mmol/L (98-107) 98 mmol/L (98-107) Carbon Dioxide Level 22 mmol/L (21-32) 23 mmol/L (21-32) Anion Gap 20 (6-14) 12 (6-14) Blood Urea Nitrogen 17 mg/dL (7-20) 33 mg/dL (7-20) Creatinine 1.1 mg/dL (0.6-1.0) 1.5 mg/dL (0.6-1.0) Estimated GFR (Cockcroft-Gault) 62.4 43.6 BUN/Creatinine Ratio 15 (6-20) Glucose Level 180 mg/dL (70-99) 121 mg/dL (70-99) Calcium Level 10.3 mg/dL (8.5-10.1) 9.6 mg/dL (8.5-10.1) Magnesium Level 1.6 mg/dL (1.8-2.4) 3.5 mg/dL (1.8-2.4) Total Bilirubin 1.2 mg/dL (0.2-1.0) Aspartate Amino Transf (AST/SGOT) 28 U/L (15-37) Alanine Aminotransferase (ALT/SGPT) 19 U/L (14-59) Alkaline Phosphatase 123 U/L (46-116) Troponin I Quantitative < 0.017 ng/mL (0.000-0.055) Total Protein 10.4 g/dL (6.4-8.2) Albumin 4.9 g/dL (3.4-5.0) Albumin/Globulin Ratio 0.9 (1.0-1.7) Lipase 88 U/L (73-393) Urine Collection Type Unknown Urine Color Yellow Urine Clarity Clear Urine pH 7.0 Urine Specific [place] 1.010 Urine Protein >=300 mg/dL (NEG-TRACE) Urine Glucose (UA) 100 mg/dL (NEG) Urine Ketones (Stick) Negative mg/dL (NEG) Urine Blood Moderate (NEG) Urine Nitrite Negative (NEG) Urine Bilirubin Negative (NEG) Urine Urobilinogen Dipstick 0.2 mg/dL (0.2 mg/dL) Urine Leukocyte Esterase Negative (NEG) Urine RBC 1-2 /HPF (0-2) Urine WBC Occ /HPF (0-4) Urine Squamous Epithelial Cells Occ /LPF Urine Amorphous Sediment Present /HPF Urine Bacteria Few /HPF (0-FEW) Urine Hyaline Casts Few /HPF Urine Mucus Slight /LPF Urine Opiates Screen Pos (NEG) Urine Methadone Screen Neg (NEG) Urine Barbiturates Neg (NEG) Urine Phencyclidine Screen Neg (NEG) Urine Amphetamine/Methamphetamine Neg (NEG) Urine Benzodiazepines Screen Neg (NEG) Urine Cocaine Screen Neg (NEG) Urine Cannabinoids Screen Neg (NEG) Urine Ethyl Alcohol Neg (NEG) Laboratory Tests Test 05/20/19 17:50 05/21/19 04:35 Urine Collection Type Unknown Urine Color Yellow Urine Clarity Clear Urine pH 7.0 Urine Specific [place] 1.010 Urine Protein >=300 mg/dL (NEG-TRACE) Urine Glucose (UA) 100 mg/dL (NEG) Urine Ketones (Stick) Negative mg/dL (NEG) Urine Blood Moderate (NEG) Urine Nitrite Negative (NEG) Urine Bilirubin Negative (NEG) Urine Urobilinogen Dipstick 0.2 mg/dL (0.2 mg/dL) Urine Leukocyte Esterase Negative (NEG) Urine RBC 1-2 /HPF (0-2) Urine WBC Occ /HPF (0-4) Urine Squamous Epithelial Cells Occ /LPF Urine Amorphous Sediment Present /HPF Urine Bacteria Few /HPF (0-FEW) Urine Hyaline Casts Few /HPF Urine Mucus Slight /LPF Urine Opiates Screen Pos (NEG) Urine Methadone Screen Neg (NEG) Urine Barbiturates Neg (NEG) Urine Phencyclidine Screen Neg (NEG) Urine Amphetamine/Methamphetamine Neg (NEG) Urine Benzodiazepines Screen Neg (NEG) Urine Cocaine Screen Neg (NEG) Urine Cannabinoids Screen Neg (NEG) Urine Ethyl Alcohol Neg (NEG) White Blood Count 12.2 x10^3/uL (4.0-11.0) Red Blood Count 5.81 x10^6/uL (3.50-5.40) Hemoglobin 16.6 g/dL (12.0-15.5) Hematocrit 49.7 % (36.0-47.0) Mean Corpuscular Volume 86 fL (79-100) Mean Corpuscular Hemoglobin 29 pg (25-35) Mean Corpuscular Hemoglobin Concent 33 g/dL (31-37) Red Cell Distribution Width 15.0 % (11.5-14.5) Platelet Count 137 x10^3/uL (140-400) Neutrophils (%) (Auto) 71 % (31-73) Lymphocytes (%) (Auto) 20 % (24-48) Monocytes (%) (Auto) 8 % (0-9) Eosinophils (%) (Auto) 0 % (0-3) Basophils (%) (Auto) 0 % (0-3) Neutrophils # (Auto) 8.7 x10^3/uL (1.8-7.7) Lymphocytes # (Auto) 2.4 x10^3/uL (1.0-4.8) Monocytes # (Auto) 1.0 x10^3/uL (0.0-1.1) Eosinophils # (Auto) 0.0 x10^3/uL (0.0-0.7) Basophils # (Auto) 0.0 x10^3/uL (0.0-0.2) Sodium Level 133 mmol/L (136-145) Potassium Level 4.8 mmol/L (3.5-5.1) Chloride Level 98 mmol/L (98-107) Carbon Dioxide Level 23 mmol/L (21-32) Anion Gap 12 (6-14) Blood Urea Nitrogen 33 mg/dL (7-20) Creatinine 1.5 mg/dL (0.6-1.0) Estimated GFR (Cockcroft-Gault) 43.6 Glucose Level 121 mg/dL (70-99) Calcium Level 9.6 mg/dL (8.5-10.1) Magnesium Level 3.5 mg/dL (1.8-2.4) Brief Hospital Course Ms. Rajput is a 54 old [place] female diagnosed cyclic vomiting, sounds like she has had a gastric emptying test and an EGD in the past, known to GI service. Looking at home, as she is on PPI, Carafate,Zofran prochlorperazine and other antinausea meds. She came to the ER for cyclic vom iting with negative workup except for creatinine 1.5-1.1 tachycardic. Started on a regular diet and is tolerating fine. She can manage this at home, advised to follow as outpatient. s.p IVF Keeping stuff down, no emesis, requested for some nausea meds and BP meds and anti depressant meds. Could not help but wonder role of Elavil/ amitriptyline in cyclic vomiting hence I gave her a low-dose 10 mg - 30 day refill Causes performed on procedures performed none Discharge Information Condition at Discharge: Improved, Stable Follow Up: Weeks (GI as OP) Disposition/Orders: D/C to Home Scheduled Amitriptyline Hcl (Amitriptyline Hcl) 10 Mg Tablet, 1 TAB PO QHS for cyclc vomitn, #30 Ref 1 Prescribed by: LISS DAVIS on 05/21/19 1421 Amlodipine Besylate (Amlodipine Besylate) 10 Mg Tablet, 10 MG PO DAILY, (Reported) Entered as Reported by: ALEXANDRA SNOWDEN on 12/01/16 1116 Last Action: Continued on 05/20/191454 by REGULO CUEVA MD Atorvastatin Calcium (Atorvastatin Calcium) 10 Mg Tablet, 1 TAB PO DAILY, #30 Ref 5 (Reported) Entered as Reported by: [place] ALDANA on 12/20/15 0925 Last Action: Continued on 05/20/191454 by REGULO CUEVA MD Cyclobenzaprine Hcl (Cyclobenzaprine Hcl) 10 Mg Tablet, 1 TAB PO QHS, #30 (Reported) Entered as Reported by: CA GRANADOS on 05/19/17 1114 Last Action: Continued on 05/20/191454 by REGULO CUEVA MD Gabapentin (Gabapentin) 300 Mg Capsule, 300 MG PO TID, (Reported) Entered as Reported by: ALEXANDRA SNOWDEN on 12/01/16 1109 Last Action: Continued on 05/20/191454 by REGULO CUEVA MD Labetalol Hcl (Labetalol Hcl) 100 Mg Tablet, 100 MG PO BID for htn, #60 Prescribed by: LISS DAVIS on 03/07/19 0816 Last Action: Continued on 05/20/191454 by REGULO CUEVA MD Omeprazole (Omeprazole) 20 Mg Tablet.dr, 20 MG PO BID for gi bleed, #60 Prescribed by: LISS DAVIS on 03/07/19 0815 Last Action: Converted on 05/20/191454 by REGULO CUEVA MD Ondansetron (Zofran Odt) 4 Mg Tab.rapdis, 1 TAB SL Q8HRS, #15 Prescribed by: Tegan WORTHINGTON MD on 06/16/17 1322 Last Action: Continued on 05/20/191454 by REGULO CUEVA MD Ondansetron Hcl (Zofran) 4 Mg Tablet, 1 TAB PO Q6HRS for gi bleed, nausea, #60 Prescribed by: LISS DAVIS on 05/21/19 1421 Pantoprazole Sodium (Pantoprazole Sodium ) 40 Mg Tablet.dr, 40 MG PO DAILYAC for gerd, #60 Prescribed by: LISS DAVIS on 05/21/19 1421 Potassium Chloride (Potassium Chloride) 10 Meq Tablet.er, 10 MEQ PO DAILYBFRSUP for 7 Days, #7 Prescribed by: Tegan WORTHINGTON MD on 06/16/17 1327 Promethazine HCl (Phenergan) 12.5 Mg Supp.rect, 12.5 MG RC BID for 5 Days, #10 Prescribed by: Tegan WORTHINGTON MD on 06/16/17 1322 Last Action: Continued on 05/20/191454 by REGULO CUEVA MD Sertraline Hcl (Zoloft) 100 Mg Tablet, 1 TAB PO DAILY, #30 Ref 5 (Reported) Entered as Reported by: CA GRANADOS on 05/19/17 1115 Last Action: Converted on 05/20/191454 by REGULO CUEVA MD Sucralfate (Carafate) 1 Gm Tablet, 1 TAB PO QID for gi bleed, #120 Prescribed by: LISS DAVIS on 03/07/19 0816 Last Action: Continued on 05/20/191454 by REGULO CUEVA MD Scheduled PRN Hydrocodone Bit/Acetaminophen (Hydrocodone-Apap 5-325 ) 1 Tab Tablet, 1 TAB PO PRN Q4HRS PRN for PAIN, #20 Prescribed by: LISS DAVIS on 05/21/19 1421 Hydroxyzine Hcl (Hydroxyzine Hcl) 25 Mg Tablet, 50 MG PO PRN Q6HRS PRN for ANXIETY, (Reported) Entered as Reported by: CA GRANADOS on 05/19/17 1116 Last Action: Continued on 05/20/191454 by REGULO CUEVA MD Prochlorperazine Maleate (Prochlorperazine Maleate) 5 Mg Tablet, 5 MG PO PRN TID PRN for NAUSEA, #30 Prescribed by: LISS DAVIS on 05/21/19 1421 LISS DAVIS MD May 21, 2019 14:25
--- NOTE | 2019-05-21 16:08 | NUR ---
Discharge Note: DANIELA MANUEL [address] Discharge instructions and discharge home medications reviewed with Patient and a copy given. All questions have been answered and understanding verbalized. The following instructions and handouts were given: HTN, nausea, follow up with Dr. Deleon, Dr. Dee as needed, and medications. Discontinued lines and drains: IV removed, no lines present. Patient discharged to home. ambulated to private vehicle.
== END 2019-05-21 15:40 | disposition home or self-care (01) | DRG 304 ==
LOC: ER 12:18 → 2 SOUTH 16:05
PROVIDERS: ADMIT Internal Medicine; ATTEND Internal Medicine
DX: I16.1 Hypertensive emergency (principal); N17.0 Acute kidney failure with tubular necrosis; G93.40 Encephalopathy, unspecified; G43.A0 Cyclical vomiting, in migraine, not intractable; D72.829 Elevated white blood cell count, unspecified; D75.1 Secondary polycythemia; E78.00 Pure hypercholesterolemia, unspecified; E78.5 Hyperlipidemia, unspecified; E83.42 Hypomagnesemia; E83.52 Hypercalcemia; E86.0 Dehydration; F32.9 Major depressive disorder, single episode, unspecified; I10 Essential (primary) hypertension; E87.6 Hypokalemia; F41.9 Anxiety disorder, unspecified; K21.9 Gastro-esophageal reflux disease without esophagitis; K31.84 Gastroparesis; M06.9 Rheumatoid arthritis, unspecified; Z83.3 Family history of diabetes mellitus; Z87.11 Personal history of peptic ulcer disease; R73.9 Hyperglycemia, unspecified
CPT/HCPCS: 36415; 71045; 76705; 80048; 80053; 80307; 81001; 83690; 83735; 84484; 85007; 85025; 85610; 93005; J1644; J2270; J2405; J3475; J3480; J3490; J7030; 99285-25; G0378

== ENCOUNTER 2019-06-03 12:43 | Inpatient (IN) | payer SELFPAY ==
[~2019-06-03] VITALS: Ht 170.2 cm; Wt 52.8 kg
[~2019-06-03 12:43] MED LIST changes: +AMIT10TA PO
[2019-06-03] MEDS ORDERED: IV NORMAL SALINE 1000ML BAG 1,000 ML IV SCH (14:50)
[2019-06-03 15:00] LABS: BILIRUBIN,URINE NEGATIVE (NEG); CLARITY,URINE CLEAR; COLOR,URINE YELLOW; NITRITE,URINE NEGATIVE (NEG); PH,URINE 7.5; PROTEIN,URINE >=300 mg/dL (NEG-TRACE); UROBILINOGEN,URINE 0.2 mg/dL (0.2 mg/dL)
[2019-06-03] MEDS ORDERED: fentaNYL PF VIAL 100 MCG/2 ML VIAL IV ONE ×2 (15:00→16:15)
[2019-06-03] MEDS ORDERED: ONDANSETRON PF 4 MG/2 ML VIAL. IV ONE (15:00)
[2019-06-03] MEDS ORDERED: FAMOTIDINE 20 MG/2 ML VIAL IVP ONE (15:00)
[2019-06-03 15:07] LABS: BARBITURATES NEG (NEG); BENZODIAZEPINES NEG (NEG); CANNABINOIDS NEG (NEG); COCAINE NEG (NEG); METHADONE NEG (NEG); OPIATES NEG (NEG); PHENCYCLIDINE NEG (NEG)
[2019-06-03 15:09] LABS: HYALINE CASTS, URINE MODERATE /HPF; SQUAMOUS EPITHELIAL CELL,UR FEW /LPF
[2019-06-03 15:10] LABS: AMPHETAMINE/METHAMPHETAMINE NEG (NEG); BACTERIA,URINE 0 /HPF (0-FEW); RBC,URINE 20-40 /HPF (0-2)
--- NOTE | 2019-06-03 15:16 | EKG ---
[facility] [address] [place] [address] Test Date: 2019-06-03 Test Time: 15:08:02 Pat Name: DANIELA MANUEL Department: Room: Gender: F Machine I Coremaker: : 1965 Requested By: FÉLIX BOB Order Number: [id number] Reading MD: Measurements Intervals [place] Rate: 117 P: 63 VA: 134 QRS: 56 QRSD: 74 T: 69 QT: 324 QTc: 456 Interpretive Statements SINUS TACHYCARDIA BIATRIAL ENLARGEMENT QRS(T) CONTOUR ABNORMALITY CANNOT RULE OUT ANTEROSEPTAL MYOCARDIAL DAMAGE ABNORMAL ECG No previous ECG available for comparison
[2019-06-03 15:48] LABS: BASO # 0.1 x10^3/uL (0.0-0.2); BASO % 1 % (0-3); EOS # 0.1 x10^3/uL (0.0-0.7); EOS % 1 % (0-3); HEMATOCRIT 50.5 % (36.0-47.0); HEMOGLOBIN 17.1 g/dL (12.0-15.5); LYMPH # 1.6 x10^3/uL (1.0-4.8); LYMPH % 8 % (24-48); MEAN CORPUSCULAR HEMOGLOBIN 29 pg (25-35); MEAN CORPUSCULAR HGB CONC 34 g/dL (31-37); MEAN CORPUSCULAR VOLUME 86 fL (79-100); MONO # 1.1 x10^3/uL (0.0-1.1); MONO % 6 % (0-9); NEUT # 17.4 x10^3/uL (1.8-7.7); NEUT % 86 % (31-73); PLATELET COUNT 270 x10^3/uL (140-400); RED BLOOD COUNT 5.88 x10^6/uL (3.50-5.40); RED CELL DISTRIBUTION WIDTH 15.3 % (11.5-14.5); WHITE BLOOD COUNT 20.3 x10^3/uL (4.0-11.0)
[2019-06-03 15:51] LABS: CALCIUM 11.5 mg/dL (8.5-10.1); CREATININE 1.2 mg/dL (0.6-1.0); GFR 56.4; POTASSIUM 3.8 mmol/L (3.5-5.1)
[2019-06-03 16:06] LABS: ALBUMIN 5.2 g/dL (3.4-5.0); ALBUMIN/GLOBULIN RATIO 0.9 (1.0-1.7); TOTAL BILIRUBIN 1.3 mg/dL (0.2-1.0); TOTAL PROTEIN 10.8 g/dL (6.4-8.2)
--- NOTE | 2019-06-03 16:14 | RAD ---
AP and Lateral Views of the Chest 06/03/2019 2:50 PM Indication: Epigastric pain Comparison: Chest radiograph May 20, 2019 Findings: There is no focal consolidation or infiltrate identified. The cardiomediastinal silhouette is within normal limits. There is no evidence of pneumothorax or pleural effusion. No acute osseous abnormalities are identified. Metallic object projects over the right breast. Correlate with history of biopsy. Impression: No evidence of acute cardiopulmonary process. Electronically signed by: Jethro Garcia MD (06/03/2019 4:11 PM) [id number]
[2019-06-03] MEDS ORDERED: IV NORMAL SALINE 1000ML BAG 1,000 ML IV ONE (16:15)
[2019-06-03] MEDS ORDERED: KETOROLAC 30 MG/ML VIAL. IV ONE (16:15)
[2019-06-03] MEDS ORDERED: METOCLOPRAMIDE HCL 10 MG/2 ML VIAL. IV ONE (16:15)
[2019-06-03 16:17] LABS: % ATYL 1 % (0-0); % BANDS 4 % (0-9); % LYMPHS 9 % (24-48); % MONOS 7 % (0-10); % SEGS 79 % (35-66); PLT ESTIMATE ADEQUATE (ADEQUATE)
[2019-06-03] MEDS ORDERED: IOHEXOL 300 MG/ML 100ML VIAL. IV ONE (16:30)
[2019-06-03] MEDS ORDERED: CONTRAST GIVEN. MC PRN (16:30)
--- NOTE | 2019-06-03 16:46 | PHYS DOC ---
Past Medical History Past Medical History: Hypertension, Other Additional Past Medical Histor: stomach ulcers Past Surgical History: No Surgical History Additional Past Surgical Histo: foot surgery, explor. abd sx Alcohol Use: None Drug Use: None Adult General Chief Complaint Chief Complaint: HEMATEMESIS[facility]ING [facility]OD [facility] Patient is a 54 year old Female who presents with a several times for the same intractable vomiting. Patient states that after her recent stay on May 20, 2019 she followed up with a doctor at [facility] but states she does not remember the name she cannot tell me if his primary care doctor or GI doctor. Patient states this morning she began vomiting and having generalized abdominal pain. Patient points to her epigastric area. Patient's rating her pain a 10 out of 10. Patient states the pain is a cramping and sharp pain. Does not radiate anywhere. Patient states she does get sharp pains in her mid chest also. Review of Systems Review of Systems Constitutional: Denies fever or chills [] Eyes: Denies change in visual acuity, redness, or eye pain [] HENT: Denies nasal congestion or sore throat [] Respiratory: Denies cough or shortness of breath [] Cardiovascular: No additional information not addressed in HPI [] GI: Denies abdominal pain, nausea, vomiting, bloody stools or diarrhea [] : Denies dysuria or hematuria [] Musculoskeletal: Denies back pain or joint pain [] Integument: Denies rash or skin lesions [] Neurologic: Denies headache, focal weakness or sensory changes [] Endocrine: Denies polyuria or polydipsia [] All other systems were reviewed and found to be within normal limits, except as documented in this note. Current Medications Current Medications Current Medications Medications (Trade) Dose Ordered Sig/Emile Start Time Stop Time Status Last Admin Dose Admin Famotidine (Pepcid Vial) 20 mg 1X ONCE 06/03/19 15:00 06/03/19 15:02 DC 06/03/19 15:32 20 MG Fentanyl Citrate (Fentanyl 2ml Vial) 50 mcg 1X ONCE 06/03/19 16:15 06/03/19 16:22 DC 06/03/19 16:28 50 MCG Info (CONTRAST GIVEN -- Rx MONITORING) 1 each PRN DAILY PRN 06/03/19 16:30 06/05/19 16:29 Iohexol (Omnipaque 300 Mg/ml) 75 ml 1X ONCE 06/03/19 16:30 06/03/19 16:31 DC Ketorolac Tromethamine (Toradol 30mg Vial) 30 mg 1X ONCE 06/03/19 16:15 06/03/19 16:22 DC 06/03/19 16:28 30 MG Metoclopramide HCl (Reglan Vial) 10 mg 1X ONCE 06/03/19 16:15 06/03/19 16:22 DC 06/03/19 16:28 10 MG Ondansetron HCl (Zofran) 4 mg 1X ONCE 06/03/19 15:00 06/03/19 15:02 DC 06/03/19 15:32 4 MG Sodium Chloride 1,000 ml @ 1,000 mls/hr 1X ONCE 06/03/19 16:15 06/03/19 17:14 DC Allergies Allergies Allergies Coded Allergies Type Severity Reaction Last Updated Verified Penicillins Allergy Intermediate 12/01/16 Yes Physical Exam Physical Exam Constitutional: Well developed, well nourished, no acute distress, non-toxic appearance. [] HENT: Normocephalic, atraumatic, bilateral external ears normal, oropharynx moist, no oral exudates, nose normal. [] Eyes: PERRLA, EOMI, conjunctiva normal, no discharge. [] Neck: Normal range of motion, no tenderness, supple, no stridor. [] Cardiovascular:Heart rate regular rhythm, no murmur [] Lungs & Thorax: Bilateral breath sounds clear to auscultation [] Abdomen: Bowel sounds normal, soft, no tenderness, no masses, no pulsatile masses. [] Skin: Warm, dry, no erythema, no rash. [] Back: No tenderness, no CVA tenderness. [] Extremities: No tenderness, no cyanosis, no clubbing, ROM intact, no edema. [] Neurologic: Alert and oriented X 3, normal motor function, normal sensory function, no focal deficits noted. [] Psychologic: Affect normal, judgement normal, mood normal. [] Current Patient Data Vital Signs Vital Signs Date Time Temp Pulse Resp B/P (MAP) Pulse Ox O2 Delivery O2 Flow Rate FiO2 06/03/19 15:55 112 20 223/137 (165) 90 Room Air 06/03/19 14:14 97.9 97.9 Lab Values Laboratory Tests Test 06/03/19 14:30 06/03/19 15:35 Urine Collection Type Unknown Urine Color Yellow Urine Clarity Clear Urine pH 7.5 Urine Specific [place] 1.010 Urine Protein >=300 mg/dL (NEG-TRACE) Urine Glucose (UA) 250 mg/dL (NEG) Urine Ketones (Stick) Negative mg/dL (NEG) Urine Blood Moderate (NEG) Urine Nitrite Negative (NEG) Urine Bilirubin Negative (NEG) Urine Urobilinogen Dipstick 0.2 mg/dL (0.2 mg/dL) Urine Leukocyte Esterase Negative (NEG) Urine RBC 20-40 /HPF (0-2) Urine WBC 1-4 /HPF (0-4) Urine Squamous Epithelial Cells Few /LPF Urine Bacteria 0 /HPF (0-FEW) Urine Hyaline Casts Moderate /HPF Urine Mucus Marked /LPF Urine Opiates Screen Neg (NEG) Urine Methadone Screen Neg (NEG) Urine Barbiturates Neg (NEG) Urine Phencyclidine Screen Neg (NEG) Urine Amphetamine/Methamphetamine Neg (NEG) Urine Benzodiazepines Screen Neg (NEG) Urine Cocaine Screen Neg (NEG) Urine Cannabinoids Screen Neg (NEG) Urine Ethyl Alcohol Neg (NEG) White Blood Count 20.3 x10^3/uL (4.0-11.0) H Red Blood Count 5.88 x10^6/uL (3.50-5.40) H Hemoglobin 17.1 g/dL (12.0-15.5) H Hematocrit 50.5 % (36.0-47.0) H Mean Corpuscular Volume 86 fL (79-100) Mean Corpuscular Hemoglobin 29 pg (25-35) Mean Corpuscular Hemoglobin Concent 34 g/dL (31-37) Red Cell Distribution Width 15.3 % (11.5-14.5) H Platelet Count 270 x10^3/uL (140-400) Neutrophils (%) (Auto) 86 % (31-73) H Lymphocytes (%) (Auto) 8 % (24-48) L Monocytes (%) (Auto) 6 % (0-9) Eosinophils (%) (Auto) 1 % (0-3) Basophils (%) (Auto) 1 % (0-3) Neutrophils # (Auto) 17.4 x10^3/uL (1.8-7.7) H Lymphocytes # (Auto) 1.6 x10^3/uL (1.0-4.8) Monocytes # (Auto) 1.1 x10^3/uL (0.0-1.1) Eosinophils # (Auto) 0.1 x10^3/uL (0.0-0.7) Basophils # (Auto) 0.1 x10^3/uL (0.0-0.2) Segmented Neutrophils % 79 % (35-66) H Band Neutrophils % 4 % (0-9) Lymphocytes % 9 % (24-48) L Atypical Lymphocytes % (Manual) 1 % (0-0) H Monocytes % 7 % (0-10) Platelet Estimate Adequate (ADEQUATE) Sodium Level 137 mmol/L (136-145) Potassium Level 3.8 mmol/L (3.5-5.1) Chloride Level 96 mmol/L (98-107) L Carbon Dioxide Level 22 mmol/L (21-32) Anion Gap 19 (6-14) H Blood Urea Nitrogen 14 mg/dL (7-20) Creatinine 1.2 mg/dL (0.6-1.0) H Estimated GFR (Cockcroft-Gault) 56.4 BUN/Creatinine Ratio 12 (6-20) Glucose Level 178 mg/dL (70-99) H Lactic Acid Level 4.4 mmol/L (0.4-2.0) *H Calcium Level 11.5 mg/dL (8.5-10.1) H Total Bilirubin 1.3 mg/dL (0.2-1.0) H Aspartate Amino Transferase (AST) 26 U/L (15-37) Alanine Aminotransferase (ALT) 20 U/L (14-59) Alkaline Phosphatase 108 U/L (46-116) Troponin I Quantitative < 0.017 ng/mL (0.000-0.055) Total Protein 10.8 g/dL (6.4-8.2) H Albumin 5.2 g/dL (3.4-5.0) H Albumin/Globulin Ratio 0.9 (1.0-1.7) L Lipase 83 U/L (73-393) Laboratory Tests 06/03/19 15:35 Laboratory Tests 06/03/19 15:35 EKG EKG Sinus Tach and no STEMI Interpretation Time: [address] Leslie Radiology/Procedures Radiology/Procedures [] Impressions: [facility] [address] [place] [address] IMAGING REPORT Signed PATIENT: DANIELA MANUEL MACCOUNT: [id number] : 1965 LOCATION: ER AGE: 54 SEX: F EXAM STATUS: REG ER ORD. PHYSICIAN: FÉLIX BOB APRN REASON: EPIGASTRIC PAIN PROCEDURE: CHEST PA & LATERAL AP and Lateral Views of the Chest 06/03/2019 2:50 PM Indication: Epigastric pain Comparison: Chest radiograph May 20, 2019 Findings: There is no focal consolidation or infiltrate identified. The cardiomediastinal silhouette is within normal limits. There is no evidence of pneumothorax or pleural effusion. No acute osseous abnormalities are identified. Metallic object projects over the right breast. Correlate with history of biopsy. Impression: No evidence of acute cardiopulmonary process. Electronically signed by: Jethro Fitzpatrick MD (06/03/2019 4:11 PM) [facility] DICTATED and SIGNED BY: JETHRO FITZPATRICK MD DATE: 06/03/19 1611 Course & Med Decision Making Course & Med Decision Making Patient is a 54 year old Female who presents with a several times for the same intractable vomiting. Patient states that after her recent stay on May 20, 2019 she followed up with a doctor at [facility] but states she does not remember the name she cannot tell me if his primary care doctor or GI doctor. Patient states this morning she began vomiting and having generalized abdominal pain. Patient points to her epigastric area. Patient's rating her pain a 10 out of 10. Patient states the pain is a cramping and sharp pain. Does not radiate anywhere. Patient states she does get sharp pains in her mid chest also. Patient has a history of intractable vomiting, cyclic vomiting, narcotic dependence, hypertension, PUD, diabetes mellitus, gastroparesis. Patient abdomen is soft but there is generalized tenderness. No swelling of the extremities. Lungs are clear to auscultation all lobes. Vital signs are within normal limits. Patient's EKG shows sinus tach but no STEMI and was read by Dr. Leslie. Alert and oriented. Ambulatory with a steady gait. Skin pink warm and dry. Mucous membranes are moist. Patient denies any shortness of breath, numbness or tingling, headache, dizziness, syncope, diarrhea. 1600: Patient has a moderate amount of blood in her urine but there is no infection. Patient is postmenopausal times years. Patient denies any dysuria symptoms. She has no CVA tenderness. Patient is calling out for her pain medication and states that we need to stay up on her pain and give her pain medication regularly. Patient's urine has moderate amount of blood and it therefore going to do a CT abdomen pelvis as the CT abdomen pelvis hasn't been done since March but it was normal. On May 20 a ultrasound was done of her abdomen. Patient blood pressure is 193/139 and hydralazine is given. 1700: Spoken to Dr. Veloz and the patient is admitted for elevated lactic acid and nausea vomiting. He states to treat it like sepsis, although there is no source of infection seen at this time. Patient blood cell count is 20.3. Lactic 4.4. Blood cultures are drawn. Patient is put on Rocephin because patient is allergic to penicillins. Dragon Disclaimer Dragon Disclaimer This electronic medical record was generated, in whole or in part, using a voice recognition dictation system. The HEART Score for CP Pts HEART Score for Chest Pain: HEART Score for Chest Pain Response (Comments) Value History Slighlty/Non-Suspicious 0 ECG Normal 0 Age >45 - < 65 1 Risk Factors 1 or 2 Risk Factors 1 Troponin < Normal Limit 0 Total 2 Risk Factors: Risk Factors: DM, Current or recent (<one month) smoker, HTN, HLP, family history of CAD, obesity. Risk Scores: Score 0 - 3: 2.5% MACE over next 6 weeks - Discharge Home Score 4 - 6: 20.3% MACE over next 6 weeks - Admit for Clinical Observation Score 7 - 10: 72.7% MACE over next 6 weeks - Early Invasive Strategies Date and Time of Reassessment Date: Jun 03, 2019 Time: 17:18 Fluid Challenge Is the fluid challenge complet: No IBW Target Volume Used: No BMI > 30: No Vital Signs Vital Signs: Vital Signs Date Time Temp Pulse Resp B/P (MAP) Pulse Ox O2 Delivery O2 Flow Rate FiO2 06/03/19 15:55 112 20 223/137 (165) 90 Room Air 06/03/19 14:14 97.9 97.9 Temperature Source: Oral Respirations Respiratory Effort: Normal Respiratory Pattern: Normal Cardiovascular Pulse Rhythm: Regular Heart: Nml rate, reg. rhythm Lung Sounds Breath Sounds: Clear Capillary Refil Capillary Refill: Rt Hand > 3 seconds Peripheral Pulse Pulse Location: Radial Pulse Strength: Normal (2+) Pulse Assessment Method: Monitor Integumentary Skin: Warm Skin Moisture: Dry Skin Turgor: Normal Skin Color: warm Fingernail Color: WNL Departure Departure Impression: Primary Impression: Hematemesis Additional Impression: Sepsis Disposition: 09 ADMITTED INPATIENT Admitting Physician: HOLLY Condition: STABLE Referrals: UNKNOWN PCP NAME (PCP) Problem Qualifiers Primary Impression: Hematemesis Nausea presence: with nausea Qualified Codes: K92.0 - Hematemesis Additional Impression: Sepsis Sepsis type: sepsis due to unspecified organism Sepsis acute organ dy sfunction status: unspecified Qualified Codes: A41.9 - Sepsis, unspecified organism FÉLIX OBB APRN Jun 03, 2019 16:46
--- NOTE | 2019-06-03 17:29 | RAD ---
Study: CT abdomen and pelvis without contrast Indication: Generalized abdominal pain. Vomiting. Hematuria. Comparison: Most recently on 04/08/2019 Technique: Helical CT imaging performed of the abdomen and pelvis without the use of intravenous contrast. Sagittal and coronal reformats were obtained. Findings: The study is somewhat limited without the use of intravenous contrast. No suspicious abnormality at the lung bases or involving the visualized heart. A few calcified hepatic granulomas are noted. No calcified gallstones seen. No overt biliary ductal dilatation. The pancreas is poorly evaluated but there are no definite peripancreatic inflammatory changes. The spleen is normal in size. The adrenal glands are not well delineated. No intrarenal stones. No evidence for hydronephrosis or hydroureter. The urinary bladder is mildly thick-walled but appears similar to the comparison study. The uterus is not well evaluated but some calcification in the expected location of the posterior uterine fundus, image 145 series 2, is suggestive of a uterine fibroid. Limited evaluation for any adnexal abnormality. There is thickening of the colonic wall at the splenic flexure, image 51 series 2, as well as at the distal aspect of the transverse colon and the proximal aspect of the descending colon which was also seen to be present on the 04/08/2019 comparison. Nonobstructed small bowel. The stomach is somewhat distended and extends into the left lower quadrant. 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 No atherosclerotic calcifications seen at the origins of the celiac and superior mesenteric arteries. Atherosclerotic calcifications. The seen at the infrarenal abdominal aorta and involve the bilateral iliofemoral systems as well. No large volume free fluid seen throughout the abdomen and pelvis and fluid density anterior to the right aspect of the sacrum on image 143 series 2 is difficult to differentiate from free fluid or fluid within small bowel. No free air. Limited evaluation for any pathologically enlarged lymph nodes. No inguinal adenopathy. Scattered degenerative changes involving the lumbar spine, most notable at L4-L5 and L5-S1. No acute osseous abnormality. Impression: 1. The study is significantly degraded due to the absence of intravenous or oral contrast. Additionally, evaluation of the abdomen and pelvis is made difficult by a paucity of abdominopelvic fat with close apposition of bowel loops and other organs. 2. Thickening of the colonic wall centered at the splenic flexure and extending to involve the distal transverse colon and proximal descending colon. Note is made that a very similar appearance was seen of the colon in this region on the 04/08/2019 comparison. The etiology of this finding is nonspecific and could be related to a colitis though an ischemic etiology is not excluded. No pneumatosis or perforation. Recommend correlation for symptoms that would suggest mesenteric ischemia. Importantly, there is no calcific plaque seen at the origins of the celiac artery or SMA. 3. Unchanged mild urinary bladder wall thickening. No hydronephrosis, hydroureter or visualized nephrolithiasis. 4. Additional chronic findings as above. Electronically signed by: BECKY HERRERA MD (06/03/2019 5:26 PM) [facility]
[2019-06-03] MEDS ORDERED: PIP/TAZO PER PHARMACY MC PRN (17:30)
[2019-06-03] MEDS ORDERED: cefTRIAXone IV Push 1 GM VIAL. IVP ONE (17:30)
[2019-06-03] MEDS ORDERED: ONDANSETRON PF 4 MG/2 ML VIAL. IV PRN (17:30)
[2019-06-03] MEDS: fentaNYL PF VIAL 100 MCG/2 ML VIAL IV PRN ×2 (17:44→20:48)
--- NOTE | 2019-06-03 19:50 | NUR ---
Admit from ED via WC. Patient A/O x 4 on arrival to floor. Talkative. VSS. C/O burning aching abd pain. Rates pain 10/10. Request pain meds. Orientated to POC to include pain meds prn and NPO status. Orientated to room. Instructed to us call light for ambulation. Patient verbalized understanding. Patient resting in bed with call light at hand talking on the phone.
[2019-06-03 20:30] VITALS: BP 141/95
[2019-06-03] MEDS: IV NORMAL SALINE 1000ML BAG 1,000 ML IV SCH (20:48)
--- NOTE | 2019-06-03 21:06 | HP ---
ADMIT DATE: 06/03/2019 CHIEF COMPLAINT: Hematemesis, nausea, vomiting. HISTORY OF PRESENT ILLNESS: The patient is a pleasant 54-year-old female well known to our service. She has a history of cyclic vomiting as I recall. She also seems to have some narcotic dependence also, but today in particular, she presented with some hematemesis. Interestingly, when we checked her labs, her white count is 20,000 and she has hemoglobin of 17.1. She also has a lactic acidosis of 4.4. She seems to be septic. I discussed the case with ER physician. We are going to admit the patient, give her IV antibiotics and fluids. PAST MEDICAL HISTORY: Hypertension, peptic ulcer disease, foot surgery, exploratory laparotomy. ALLERGIES: PENICILLIN. FAMILY HISTORY: Coronary artery disease. SOCIAL HISTORY: She denies any current drug abuse or tobacco abuse or alcohol abuse. MEDICATIONS: Reviewed, please refer to the MRAD. REVIEW OF SYSTEMS: GENERAL: She complains of weakness and pain. SKIN: No bruising, hair changes or rashes. EYES: No blurred, double or loss of vision. NOSE AND THROAT: No history of nosebleeds, hoarseness or sore throat. HEART: No history of palpitations, chest pain or shortness of breath on exertion. LUNGS: Denies cough, hemoptysis, wheezing or shortness of breath. GASTROINTESTINAL: She complains of hematemesis. GENITOURINARY: No history of frequency, urgency, hesitancy or nocturia. NEUROLOGIC: Denies history of numbness, tingling, tremor or weakness. PSYCHIATRIC: No history of panic, anxiety or depression. ENDOCRINE: No history of heat or cold intolerance, polyuria or polydipsia. EXTREMITIES: Denies muscle weakness, joint pain, pain on walking or stiffness. PHYSICAL EXAMINATION: VITALS: Temperature is 97.9, pulse 100, respirations 20, blood pressure 165/24. GENERAL: No apparent distress. Alert and oriented. HEENT: Head is normocephalic, atraumatic, pupils were equally round and reactive to light and accommodation. NECK: Supple, no JVD, no thyromegaly was noted. LUNGS: Clear to auscultation in all lung aleman without rhonchi or wheezing. HEART: RRR, S1, S2 present. Peripheral pulses intact, no obvious murmurs were noted. ABDOMEN: Soft, nontender. Positive bowel sounds no organomegaly, normal bowel sounds. EXTREMITIES: Without any cyanosis, clubbing, or edema. Pedal pulses intact, Homans sign is negative. NEUROLOGIC: Normal speech, normal tone. A & O x3, moves all extremities, no obvious focal deficits. PSYCHIATRIC: Normal affect, normal mood. Stable. SKIN: No ulcerations or rashes, good skin turgor, no jaundice. VASCULAR: Good capillary refill, neurovascular bundle appears to be intact. LABORATORY DATA: White count is 20, hemoglobin 17. Electrolytes: Sodium 137, potassium 3.8, chloride 96, bicarbonate 22, BUN 14, creatinine 1.2, glucose 178. Lactic acid 4.4. ASSESSMENT AND PLAN: Sepsis with leukocytosis and lactic acidosis and hematemesis in a middle-aged female who has above noted comorbidities. The patient has been admitted. We will consult Infectious Disease and GI. IV fluids, IV antibiotics, DVT prophylaxis. Home meds, frequent labs. PROGNOSIS: Guarded. WHIT CABA DO DR: SHELBY/lev JOB#: [id number] / [id number]
[2019-06-03 23:12] VITALS: BP 121/93
[2019-06-04 03:31] VITALS: BP 139/100
[2019-06-04] MEDS: fentaNYL PF VIAL 100 MCG/2 ML VIAL IV PRN ×2 (03:33→09:21)
[2019-06-04] MEDS: IV NORMAL SALINE 1000ML BAG 1,000 ML IV SCH ×2 (03:34→17:25)
[2019-06-04 06:46] LABS: CREATININE 0.9 mg/dL (0.6-1.0); GFR 78.7; POTASSIUM 3.2 mmol/L (3.5-5.1)
[2019-06-04 07:00] VITALS: BP 136/90
[2019-06-04 07:50] LABS: BASO # 0.1 x10^3/uL (0.0-0.2); BASO % 1 % (0-3); EOS % 0 % (0-3); HEMATOCRIT 42.3 % (36.0-47.0); HEMOGLOBIN 13.9 g/dL (12.0-15.5); LYMPH # 2.7 x10^3/uL (1.0-4.8); LYMPH % 20 % (24-48); MEAN CORPUSCULAR HEMOGLOBIN 28 pg (25-35); MEAN CORPUSCULAR HGB CONC 33 g/dL (31-37); MEAN CORPUSCULAR VOLUME 86 fL (79-100); MONO # 1.1 x10^3/uL (0.0-1.1); MONO % 8 % (0-9); NEUT # 9.3 x10^3/uL (1.8-7.7); NEUT % 71 % (31-73); PLATELET COUNT 208 x10^3/uL (140-400); WHITE BLOOD COUNT 13.1 x10^3/uL (4.0-11.0)
--- NOTE | 2019-06-04 08:02 | PDOC ---
Infectious Disease Note Vital Sign Vital Signs Vital Signs Date Time Temp Pulse Resp B/P (MAP) Pulse Ox O2 Delivery O2 Flow Rate FiO2 06/04/19 04:09 18 99 Room Air 06/04/19 03:31 98.7 92 139/100 (113) 98.7 Labs Lab Laboratory Tests Test 06/03/19 14:30 06/03/19 15:35 06/03/19 18:05 06/03/19 23:25 Urine Collection Type Unknown Urine Color Yellow Urine Clarity Clear Urine pH 7.5 Urine Specific [place] 1.010 Urine Protein >=300 mg/dL (NEG-TRACE) Urine Glucose (UA) 250 mg/dL (NEG) Urine Ketones (Stick) Negative mg/dL (NEG) Urine Blood Moderate (NEG) Urine Nitrite Negative (NEG) Urine Bilirubin Negative (NEG) Urine Urobilinogen Dipstick 0.2 mg/dL (0.2 mg/dL) Urine Leukocyte Esterase Negative (NEG) Urine RBC 20-40 /HPF (0-2) Urine WBC 1-4 /HPF (0-4) Urine Squamous Epithelial Cells Few /LPF Urine Bacteria 0 /HPF (0-FEW) Urine Hyaline Casts Moderate /HPF Urine Mucus Marked /LPF Urine Opiates Screen Neg (NEG) Urine Methadone Screen Neg (NEG) Urine Barbiturates Neg (NEG) Urine Phencyclidine Screen Neg (NEG) Urine Amphetamine/Methamphetamine Neg (NEG) Urine Benzodiazepines Screen Neg (NEG) Urine Cocaine Screen Neg (NEG) Urine Cannabinoids Screen Neg (NEG) Urine Ethyl Alcohol Neg (NEG) White Blood Count 20.3 x10^3/uL (4.0-11.0) Red Blood Count 5.88 x10^6/uL (3.50-5.40) Hemoglobin 17.1 g/dL (12.0-15.5) Hematocrit 50.5 % (36.0-47.0) Mean Corpuscular Volume 86 fL (79-100) Mean Corpuscular Hemoglobin 29 pg (25-35) Mean Corpuscular Hemoglobin Concent 34 g/dL (31-37) Red Cell Distribution Width 15.3 % (11.5-14.5) Platelet Count 270 x10^3/uL (140-400) Neutrophils (%) (Auto) 86 % (31-73) Lymphocytes (%) (Auto) 8 % (24-48) Monocytes (%) (Auto) 6 % (0-9) Eosinophils (%) (Auto) 1 % (0-3) Basophils (%) (Auto) 1 % (0-3) Neutrophils # (Auto) 17.4 x10^3/uL (1.8-7.7) Lymphocytes # (Auto) 1.6 x10^3/uL (1.0-4.8) Monocytes # (Auto) 1.1 x10^3/uL (0.0-1.1) Eosinophils # (Auto) 0.1 x10^3/uL (0.0-0.7) Basophils # (Auto) 0.1 x10^3/uL (0.0-0.2) Segmented Neutrophils % 79 % (35-66) Band Neutrophils % 4 % (0-9) Lymphocytes % 9 % (24-48) Atypical Lymphocytes % (Manual) 1 % (0-0) Monocytes % 7 % (0-10) Platelet Estimate Adequate (ADEQUATE) Sodium Level 137 mmol/L (136-145) Potassium Level 3.8 mmol/L (3.5-5.1) Chloride Level 96 mmol/L (98-107) Carbon Dioxide Level 22 mmol/L (21-32) Anion Gap 19 (6-14) Blood Urea Nitrogen 14 mg/dL (7-20) Creatinine 1.2 mg/dL (0.6-1.0) Estimated GFR (Cockcroft-Gault) 56.4 BUN/Creatinine Ratio 12 (6-20) Glucose Level 178 mg/dL (70-99) Lactic Acid Level 4.4 mmol/L (0.4-2.0) 3.1 mmol/L (0.4-2.0) Calcium Level 11.5 mg/dL (8.5-10.1) Total Bilirubin 1.3 mg/dL (0.2-1.0) Aspartate Amino Transf (AST/SGOT) 26 U/L (15-37) Alanine Aminotransferase (ALT/SGPT) 20 U/L (14-59) Alkaline Phosphatase 108 U/L (46-116) Troponin I Quantitative < 0.017 ng/mL (0.000-0.055) < 0.017 ng/mL (0.000-0.055) Total Protein 10.8 g/dL (6.4-8.2) Albumin 5.2 g/dL (3.4-5.0) Albumin/Globulin Ratio 0.9 (1.0-1.7) Lipase 83 U/L (73-393) Test 06/04/19 06:28 Sodium Level 141 mmol/L (136-145) Potassium Level 3.2 mmol/L (3.5-5.1) Chloride Level 104 mmol/L (98-107) Carbon Dioxide Level 27 mmol/L (21-32) Anion Gap 10 (6-14) Blood Urea Nitrogen 13 mg/dL (7-20) Creatinine 0.9 mg/dL (0.6-1.0) Estimated GFR (Cockcroft-Gault) 78.7 Glucose Level 106 mg/dL (70-99) Lactic Acid Level 1.0 mmol/L (0.4-2.0) Calcium Level 9.0 mg/dL (8.5-10.1) Troponin I Quantitative < 0.017 ng/mL (0.000-0.055) Objective Assessment Leukocytosis Lactic acidosis PCN allergy - has tolerated Amox Tooth infection R lower molar N/v/dehydration Plan Plan of Care IV zosyn Peridex CT maxalfacial Anticipate change to po Augmentin when cleared by GI for orals F/u labs and cults Need dental eval Colonic changes on CT per GI d/w nursing Thank you # [phone] IRMA VILLANUEVA MD Jun 04, 2019 08:01
[2019-06-04] MEDS: CHLORHEXIDINE 0.12% 15 ML MOUTHWASH. SWSP SCH ×2 (09:20→22:38)
[2019-06-04] MEDS: PIPERACILLIN/TAZOBACTAM 3.375 GM in IV NORMAL SALINE 50ML 50 ML IV SCH ×4 (09:21→22:39)
--- NOTE | 2019-06-04 09:36 | PDOC2 ---
GI CONSULT Reason For Consult: Hematemesis HPI: HPI: 54 y/o female who we have seen many times. Again presented to ER w/ abd pain, vomiting and concern for bleeding ("I threw up red and black"), and noted w/ hypertension. Symptoms recurred on Saturday 06/02 w/o precipitating events. Reportedly taking pantoprazole QD and Reglan TID. Had one loose stool that day (no blood) - no stools since. Feels better this morning, going for maxillofacial CT for broken tooth/concern for infection. When we last saw in March, [place] [facility] [place] - never w/ ulcer, initially +H. pylori and then negative (after treatment), gastritis and duodenitis noted (most recently 09/2018). Also two recent colonoscopies - first w/ ischemic colitis, second normal. GES normal here in 03/2019 (T1/2 53 min). Normal GB on US in 05/2019. Elevated Cortisol in 03/2019. No liver or pancreas history. Takes hydrocodone at night for back girma n. Denies NSAIDs. In March, abnormal urine collection w/ elevated VMA 24 hr and normetanephrine. PMH: PMH: HTN, GERD, H. pylori (treated), ischemic colitis, depression, RA right ankle ORIF, exploatory abdominal [place] [facility] [place] FH: Family History: CAD, DM, Hypertension Social History: Smoke: No ALCOHOL: none Drugs: Marijuana (tox screen neg this time) ROS: GEN: Denies fevers, chills, sweats HEENT: Denies blurred vision, sore throat CV: Denies chest pain RESP: Denies shortness of air, cough GI: Per HPI : Denies hematuria, dysuria ENDO: Denies weight changes NEURO: Denies confusion, dizziness MSK: +back pain SKIN: Denies jaundice, pruritus Vitals: Vitals: Vital Signs Date Time Temp Pulse Resp B/P (MAP) Pulse Ox O2 Delivery O2 Flow Rate FiO2 06/04/19 09:25 Room Air 06/04/19 07:00 98.3 85 18 136/90 (105) 99 98.3 Labs: Labs: Laboratory Tests Test 06/03/19 14:30 06/03/19 15:35 06/03/19 18:05 06/03/19 23:25 Urine Collection Type Unknown Urine Color Yellow Urine Clarity Clear Urine pH 7.5 Urine Specific [place] 1.010 Urine Protein >=300 mg/dL (NEG-TRACE) Urine Glucose (UA) 250 mg/dL (NEG) Urine Ketones (Stick) Negative mg/dL (NEG) Urine Blood Moderate (NEG) Urine Nitrite Negative (NEG) Urine Bilirubin Negative (NEG) Urine Urobilinogen Dipstick 0.2 mg/dL (0.2 mg/dL) Urine Leukocyte Esterase Negative (NEG) Urine RBC 20-40 /HPF (0-2) Urine WBC 1-4 /HPF (0-4) Urine Squamous Epithelial Cells Few /LPF Urine Bacteria 0 /HPF (0-FEW) Urine Hyaline Casts Moderate /HPF Urine Mucus Marked /LPF Urine Opiates Screen Neg (NEG) Urine Methadone Screen Neg (NEG) Urine Barbiturates Neg (NEG) Urine Phencyclidine Screen Neg (NEG) Urine Amphetamine/Methamphetamine Neg (NEG) Urine Benzodiazepines Screen Neg (NEG) Urine Cocaine Screen Neg (NEG) Urine Cannabinoids Screen Neg (NEG) Urine Ethyl Alcohol Neg (NEG) White Blood Count 20.3 x10^3/uL (4.0-11.0) Red Blood Count 5.88 x10^6/uL (3.50-5.40) Hemoglobin 17.1 g/dL (12.0-15.5) Hematocrit 50.5 % (36.0-47.0) Mean Corpuscular Volume 86 fL (79-100) Mean Corpuscular Hemoglobin 29 pg (25-35) Mean Corpuscular Hemoglobin Concent 34 g/dL (31-37) Red Cell Distribution Width 15.3 % (11.5-14.5) Platelet Count 270 x10^3/uL (140-400) Neutrophils (%) (Auto) 86 % (31-73) Lymphocytes (%) (Auto) 8 % (24-48) Monocytes (%) (Auto) 6 % (0-9) Eosinophils (%) (Auto) 1 % (0-3) Basophils (%) (Auto) 1 % (0-3) Neutrophils # (Auto) 17.4 x10^3/uL (1.8-7.7) Lymphocytes # (Auto) 1.6 x10^3/uL (1.0-4.8) Monocytes # (Auto) 1.1 x10^3/uL (0.0-1.1) Eosinophils # (Auto) 0.1 x10^3/uL (0.0-0.7) Basophils # (Auto) 0.1 x10^3/uL (0.0-0.2) Segmented Neutrophils % 79 % (35-66) Band Neutrophils % 4 % (0-9) Lymphocytes % 9 % (24-48) Atypical Lymphocytes % (Manual) 1 % (0-0) Monocytes % 7 % (0-10) Platelet Estimate Adequate (ADEQUATE) Sodium Level 137 mmol/L (136-145) Potassium Level 3.8 mmol/L (3.5-5.1) Chloride Level 96 mmol/L (98-107) Carbon Dioxide Level 22 mmol/L (21-32) Anion Gap 19 (6-14) Blood Urea Nitrogen 14 mg/dL (7-20) Creatinine 1.2 mg/dL (0.6-1.0) Estimated GFR (Cockcroft-Gault) 56.4 BUN/Creatinine Ratio 12 (6-20) Glucose Level 178 mg/dL (70-99) Lactic Acid Level 4.4 mmol/L (0.4-2.0) 3.1 mmol/L (0.4-2.0) Calcium Level 11.5 mg/dL (8.5-10.1) Total Bilirubin 1.3 mg/dL (0.2-1.0) Aspartate Amino Transf (AST/SGOT) 26 U/L (15-37) Alanine Aminotransferase (ALT/SGPT) 20 U/L (14-59) Alkaline Phosphatase 108 U/L (46-116) Troponin I Quantitative < 0.017 ng/mL (0.000-0.055) < 0.017 ng/mL (0.000-0.055) Total Protein 10.8 g/dL (6.4-8.2) Albumin 5.2 g/dL (3.4-5.0) Albumin/Globulin Ratio 0.9 (1.0-1.7) Lipase 83 U/L (73-393) Test 06/04/19 06:28 White Blood Count 13.1 x10^3/uL (4.0-11.0) Red Blood Count 4.90 x10^6/uL (3.50-5.40) Hemoglobin 13.9 g/dL (12.0-15.5) Hematocrit 42.3 % (36.0-47.0) Mean Corpuscular Volume 86 fL (79-100) Mean Corpuscular Hemoglobin 28 pg (25-35) Mean Corpuscular Hemoglobin Concent 33 g/dL (31-37) Red Cell Distribution Width 15.0 % (11.5-14.5) Platelet Count 208 x10^3/uL (140-400) Neutrophils (%) (Auto) 71 % (31-73) Lymphocytes (%) (Auto) 20 % (24-48) Monocytes (%) (Auto) 8 % (0-9) Eosinophils (%) (Auto) 0 % (0-3) Basophils (%) (Auto) 1 % (0-3) Neutrophils # (Auto) 9.3 x10^3/uL (1.8-7.7) Lymphocytes # (Auto) 2.7 x10^3/uL (1.0-4.8) Monocytes # (Auto) 1.1 x10^3/uL (0.0-1.1) Eosinophils # (Auto) 0.0 x10^3/uL (0.0-0.7) Basophils # (Auto) 0.1 x10^3/uL (0.0-0.2) Sodium Level 141 mmol/L (136-145) Potassium Level 3.2 mmol/L (3.5-5.1) Chloride Level 104 mmol/L (98-107) Carbon Dioxide Level 27 mmol/L (21-32) Anion Gap 10 (6-14) Blood Urea Nitrogen 13 mg/dL (7-20) Creatinine 0.9 mg/dL (0.6-1.0) Estimated GFR (Cockcroft-Gault) 78.7 Glucose Level 106 mg/dL (70-99) Lactic Acid Level 1.0 mmol/L (0.4-2.0) Calcium Level 9.0 mg/dL (8.5-10.1) Troponin I Quantitative < 0.017 ng/mL (0.000-0.055) Allergies: Coded Allergies: Penicillins (Verified Allergy, Intermediate, HAS TOLERATED AMOXICILLIN, 06/04/19) Medications: Current Medications Medications (Trade) Dose Ordered Sig/Emile Route PRN Reason Start Time Stop Time Status Last Admin Dose Admin Sodium Chloride 1,000 ml @ 1,000 mls/hr Q1H IV 06/03/19 14:50 06/03/19 15:49 DC 06/03/19 15:32 Fentanyl Citrate (Fentanyl 2ml Vial) 50 mcg 1X ONCE IV 06/03/19 15:00 06/03/19 15:02 DC 06/03/19 15:32 Ondansetron HCl (Zofran) 4 mg 1X ONCE IV 06/03/19 15:00 06/03/19 15:02 DC 06/03/19 15:32 Famotidine (Pepcid Vial) 20 mg 1X ONCE IVP 06/03/19 15:00 06/03/19 15:02 DC 06/03/19 15:32 Fentanyl Citrate (Fentanyl 2ml Vial) 50 mcg 1X ONCE IV 06/03/19 16:15 06/03/19 16:22 DC 06/03/19 16:28 Sodium Chloride 1,000 ml @ 1,000 mls/hr 1X ONCE IV 06/03/19 16:15 06/03/19 17:14 DC 06/03/19 17:58 Ketorolac Tromethamine (Toradol 30mg Vial) 30 mg 1X ONCE IV 06/03/19 16:15 06/03/19 16:22 DC 06/03/19 16:28 Metoclopramide HCl (Reglan Vial) 10 mg 1X ONCE IV 06/03/19 16:15 06/03/19 16:22 DC 06/03/19 16:28 Ceftriaxone Sodium (Rocephin) 1 gm 1X ONCE IVP 06/03/19 17:30 06/03/19 17:40 DC 06/03/19 17:33 Ondansetron HCl (Zofran) 4 mg PRN Q8HRS PRN IV NAUSEA/VOMITING 06/03/19 17:30 06/04/19 17:29 06/03/19 17:45 Fentanyl Citrate (Fentanyl 2ml Vial) 50 mcg PRN Q1HR PRN IV PAIN 06/03/19 17:30 06/04/19 17:29 06/04/19 09:25 Sodium Chloride 1,000 ml @ 100 mls/hr Q10H IV 06/03/19 17:23 06/04/19 17:22 06/04/19 03:34 Piperacillin Sod/ Tazobactam Sod 3.375 gm/Sodium Chloride 50 ml @ 100 mls/hr Q6HRS IV 06/04/19 08:00 06/04/19 09:25 Chlorhexidine Gluconate (Peridex) 15 ml BID SWSP 06/04/19 09:00 06/04/19 09:25 Imaging: Imaging: CXR Impression: No evidence of acute cardiopulmonary process. CT A/P Impression: 1. The study is significantly degraded due to the absence of intravenous or oral contrast. Additionally, evaluation of the abdomen and pelvis is made difficult by a paucity of abdominopelvic fat with close apposition of bowel loops and other organs. 2. Thickening of the colonic wall centered at the splenic flexure and extending to involve the distal transverse colon and proximal descending colon. Note is made that a very similar appearance was seen of the colon in this region on the 04/08/2019 comparison. The etiology of this finding is nonspecific and could be related to a colitis though an ischemic etiology is not excluded. No pneumatosis or perforation. Recommend correlation for symptoms that would suggest mesenteric ischemia. Importantly, there is no calcific plaque seen at the origins of the celiac artery or SMA. 3. Unchanged mild urinary bladder wall thickening. No hydronephrosis, hydroureter or visualized nephrolithiasis. 4. Additional chronic findings as above. PE: GEN: NAD HEENT: Atraumatic, PERRL LUNGS: CTAB HEART: RRR ABD: NABS, S/ND/NT EXTREMITY: No edema SKIN: No rashes, no jaundice NEURO/PSYCH: A & O �3 A/P: A/P: Recurrent n/v, abd pain, uncontrolled HTN Leukocytosis, lactic acidosis - resolving H/o abnormal 24 hr urine collection GERD CRC screen H/o ischemic colitis Chronic pain on hydrocodone -- ?workup for pheochromocytoma - defer to primary - d/w nurse and pt GI symptoms resolved today - Hgb and BUN normal - resume PPI. ?need Reglan too - normal GES this year. Unclear significance of apparently chronic colon findings on CT - [place] [facility] [place]. ANDRES HOFFMAN Jun 04, 2019 09:36
[2019-06-04] MEDS ORDERED: RANI150C PO (10:28)
[2019-06-04] MEDS: PANTOPRAZOLE 40 MG TABLET.DR. PO SCH (10:41)
[2019-06-04] MEDS ORDERED: CYCLOBENZAPRINE 10 MG TABLET. PO PRN (10:45)
[2019-06-04 10:58] VITALS: BP 109/88
[2019-06-04] MEDS ORDERED: FAMOTIDINE 20 MG TABLET. PO SCH (11:00)
[2019-06-04] MEDS ORDERED: ONDANSETRON ODT 4 MG TAB.RAPDIS. PO PRN (11:00)
--- NOTE | 2019-06-04 11:03 | RAD ---
EXAM: CT facial bones without contrast CLINICAL HISTORY: Right mandibular dental infection COMPARISON: None available. TECHNIQUE: Helical CT of the face/paranasal sinuses was acquired and axial, coronal and sagittal reformatted images were generated. ---PQRS compliance statement - One or more of the following individualized dose reduction techniques were utilized for this study: 1. Automated exposure control 2. Adjustment of the mA and/or kV according to patient size 3. Use of iterative reconstruction technique--- FINDINGS: Large cavity is seen at the second right mandibular molar with prominent periapical lucency, periapical abscess. No definite soft tissue swelling/fluid collection is seen although evaluation limited given streak artifact and noncontrast examination. Cavities are seen at a few other teeth including the left first, second and third maxillary molars. No definite fracture is noted of the facial bones. The visualized paranasal sinuses are well-aerated. No evidence of air-fluid levels. The mastoids are unremarkable. The globes, extraocular muscles, optic nerves and retrobulbar fat are normal. Mandible and bilateral temporomandibular joints are normal. IMPRESSION: Large cavity within the second right mandibular molar with periapical lucency, likely periapical abscess. No definite associated soft tissue swelling or abscess is seen although evaluation limited by streak artifact and lack of IV contrast. Electronically signed by: eLon Méndez MD (06/04/2019 11:00 AM) [facility]
--- NOTE | 2019-06-04 11:21 | PDOC ---
[facility] PROGRESS NOTE Chief Complaint Chief Complaint Hyperemesis Sepsis History of Present Illness History of Present Illness 54-year-old female well known to our service. Presented on 06/03/19 with hyperemesis. Seen in the ER and admitted for sepsis. Given IV fluids and antibiotics. Pt was seen and examined at bedside. Was alert, awake, and oriented. Vitals/I&O Vitals/I&O: Vital Signs Date Time Temp Pulse Resp B/P (MAP) Pulse Ox O2 Delivery O2 Flow Rate FiO2 06/04/19 10:58 98.2 75 18 109/88 (95) 100 Room Air 98.2 I & O 06/03/19 06/03/19 06/04/19 15:00 23:00 07:00 Intake Total 2000 ml 1000 ml Balance 2000 ml 1000 ml Physical Exam Physical Exam: VITALS: Temperature is 98.2, pulse 75, respirations 18, blood pressure 109/88. GENERAL: No apparent distress. Alert and oriented. HEENT: Head is normocephalic, atraumatic, pupils were equally round and reactive to light and accommodation. NECK: Supple, no JVD, no thyromegaly was noted. LUNGS: Clear to auscultation in all lung aleman without rhonchi or wheezing. HEART: RRR, S1, S2 present. Peripheral pulses intact, no obvious murmurs were noted. ABDOMEN: Soft, nontender. Positive bowel sounds no organomegaly, normal bowel sounds. EXTREMITIES: Without any cyanosis, clubbing, or edema. Pedal pulses intact, Homans sign is negative. NEUROLOGIC: Normal speech, normal tone. A & O x3, moves all extremities, no obvious focal deficits. PSYCHIATRIC: Normal affect, normal mood. Stable. SKIN: No ulcerations or rashes, good skin turgor, no jaundice. VASCULAR: Good capillary refill, neurovascular bundle appears to be intact. General: Alert, Oriented X3, Cooperative Heart: Regular rate Lungs: Clear Abdomen: Normal bowel sounds Extremities: No clubbing, No cyanosis, No edema, Normal pulses Skin: No rashes, No breakdown Labs Labs: Laboratory Tests Test 06/03/19 14:30 06/03/19 15:35 06/03/19 18:05 06/03/19 23:25 Urine Collection Type Unknown Urine Color Yellow Urine Clarity Clear Urine pH 7.5 Urine Specific Gilberts 1.010 Urine Protein >=300 mg/dL (NEG-TRACE) Urine Glucose (UA) 250 mg/dL (NEG) Urine Ketones (Stick) Negative mg/dL (NEG) Urine Blood Moderate (NEG) Urine Nitrite Negative (NEG) Urine Bilirubin Negative (NEG) Urine Urobilinogen Dipstick 0.2 mg/dL (0.2 mg/dL) Urine Leukocyte Esterase Negative (NEG) Urine RBC 20-40 /HPF (0-2) Urine WBC 1-4 /HPF (0-4) Urine Squamous Epithelial Cells Few /LPF Urine Bacteria 0 /HPF (0-FEW) Urine Hyaline Casts Moderate /HPF Urine Mucus Marked /LPF Urine Opiates Screen Neg (NEG) Urine Methadone Screen Neg (NEG) Urine Barbiturates Neg (NEG) Urine Phencyclidine Screen Neg (NEG) Urine Amphetamine/Methamphetamine Neg (NEG) Urine Benzodiazepines Screen Neg (NEG) Urine Cocaine Screen Neg (NEG) Urine Cannabinoids Screen Neg (NEG) Urine Ethyl Alcohol Neg (NEG) White Blood Count 20.3 x10^3/uL (4.0-11.0) Red Blood Count 5.88 x10^6/uL (3.50-5.40) Hemoglobin 17.1 g/dL (12.0-15.5) Hematocrit 50.5 % (36.0-47.0) Mean Corpuscular Volume 86 fL (79-100) Mean Corpuscular Hemoglobin 29 pg (25-35) Mean Corpuscular Hemoglobin Concent 34 g/dL (31-37) Red Cell Distribution Width 15.3 % (11.5-14.5) Platelet Count 270 x10^3/uL (140-400) Neutrophils (%) (Auto) 86 % (31-73) Lymphocytes (%) (Auto) 8 % (24-48) Monocytes (%) (Auto) 6 % (0-9) Eosinophils (%) (Auto) 1 % (0-3) Basophils (%) (Auto) 1 % (0-3) Neutrophils # (Auto) 17.4 x10^3/uL (1.8-7.7) Lymphocytes # (Auto) 1.6 x10^3/uL (1.0-4.8) Monocytes # (Auto) 1.1 x10^3/uL (0.0-1.1) Eosinophils # (Auto) 0.1 x10^3/uL (0.0-0.7) Basophils # (Auto) 0.1 x10^3/uL (0.0-0.2) Segmented Neutrophils % 79 % (35-66) Band Neutrophils % 4 % (0-9) Lymphocytes % 9 % (24-48) Atypical Lymphocytes % (Manual) 1 % (0-0) Monocytes % 7 % (0-10) Platelet Estimate Adequate (ADEQUATE) Sodium Level 137 mmol/L (136-145) Potassium Level 3.8 mmol/L (3.5-5.1) Chloride Level 96 mmol/L (98-107) Carbon Dioxide Level 22 mmol/L (21-32) Anion Gap 19 (6-14) Blood Urea Nitrogen 14 mg/dL (7-20) Creatinine 1.2 mg/dL (0.6-1.0) Estimated GFR (Cockcroft-Gault) 56.4 BUN/Creatinine Ratio 12 (6-20) Glucose Level 178 mg/dL (70-99) Lactic Acid Level 4.4 mmol/L (0.4-2.0) 3.1 mmol/L (0.4-2.0) Calcium Level 11.5 mg/dL (8.5-10.1) Total Bilirubin 1.3 mg/dL (0.2-1.0) Aspartate Amino Transf (AST/SGOT) 26 U/L (15-37) Alanine Aminotransferase (ALT/SGPT) 20 U/L (14-59) Alkaline Phosphatase 108 U/L (46-116) Troponin I Quantitative < 0.017 ng/mL (0.000-0.055) < 0.017 ng/mL (0.000-0.055) Total Protein 10.8 g/dL (6.4-8.2) Albumin 5.2 g/dL (3.4-5.0) Albumin/Globulin Ratio 0.9 (1.0-1.7) Lipase 83 U/L (73-393) Test 06/04/19 06:28 White Blood Count 13.1 x10^3/uL (4.0-11.0) Red Blood Count 4.90 x10^6/uL (3.50-5.40) Hemoglobin 13.9 g/dL (12.0-15.5) Hematocrit 42.3 % (36.0-47.0) Mean Corpuscular Volume 86 fL (79-100) Mean Corpuscular Hemoglobin 28 pg (25-35) Mean Corpuscular Hemoglobin Concent 33 g/dL (31-37) Red Cell Distribution Width 15.0 % (11.5-14.5) Platelet Count 208 x10^3/uL (140-400) Neutrophils (%) (Auto) 71 % (31-73) Lymphocytes (%) (Auto) 20 % (24-48) Monocytes (%) (Auto) 8 % (0-9) Eosinophils (%) (Auto) 0 % (0-3) Basophils (%) (Auto) 1 % (0-3) Neutrophils # (Auto) 9.3 x10^3/uL (1.8-7.7) Lymphocytes # (Auto) 2.7 x10^3/uL (1.0-4.8) Monocytes # (Auto) 1.1 x10^3/uL (0.0-1.1) Eosinophils # (Auto) 0.0 x10^3/uL (0.0-0.7) Basophils # (Auto) 0.1 x10^3/uL (0.0-0.2) Sodium Level 141 mmol/L (136-145) Potassium Level 3.2 mmol/L (3.5-5.1) Chloride Level 104 mmol/L (98-107) Carbon Dioxide Level 27 mmol/L (21-32) Anion Gap 10 (6-14) Blood Urea Nitrogen 13 mg/dL (7-20) Creatinine 0.9 mg/dL (0.6-1.0) Estimated GFR (Cockcroft-Gault) 78.7 Glucose Level 106 mg/dL (70-99) Lactic Acid Level 1.0 mmol/L (0.4-2.0) Calcium Level 9.0 mg/dL (8.5-10.1) Troponin I Quantitative < 0.017 ng/mL (0.000-0.055) Review of Systems Review of Systems: 06/04/19 No vomiting, nausea No fever No jaundice Assessment and Plan Assessmemt and Plan Problems Medical Problems: (1) Hematemesis Status: Acute (2) Sepsis Status: Acute Assessment Leukocytosis Lactic acidosis PCN allergy - has tolerated Amox Tooth infection R lower molar N/v/dehydration Plan IV antibiotics Home meds Resume diet Trend WBCs DVT prophylaxis Discharge tomorrow if stable Comment Review of Relevant I have reviewed the following items starr (where applicable) has been applied. Medications: Current Medications Medications (Trade) Dose Ordered Sig/Emile Route PRN Reason Start Time Stop Time Status Last Admin Dose Admin Sodium Chloride 1,000 ml @ 1,000 mls/hr Q1H IV 06/03/19 14:50 06/03/19 15:49 DC 06/03/19 15:32 Fentanyl Citrate (Fentanyl 2ml Vial) 50 mcg 1X ONCE IV 06/03/19 15:00 06/03/19 15:02 DC 06/03/19 15:32 Ondansetron HCl (Zofran) 4 mg 1X ONCE IV 06/03/19 15:00 06/03/19 15:02 DC 06/03/19 15:32 Famotidine (Pepcid Vial) 20 mg 1X ONCE IVP 06/03/19 15:00 06/03/19 15:02 DC 06/03/19 15:32 Fentanyl Citrate (Fentanyl 2ml Vial) 50 mcg 1X ONCE IV 06/03/19 16:15 06/03/19 16:22 DC 06/03/19 16:28 Sodium Chloride 1,000 ml @ 1,000 mls/hr 1X ONCE IV 06/03/19 16:15 06/03/19 17:14 DC 06/03/19 17:58 Ketorolac Tromethamine (Toradol 30mg Vial) 30 mg 1X ONCE IV 06/03/19 16:15 06/03/19 16:22 DC 06/03/19 16:28 Metoclopramide HCl (Reglan Vial) 10 mg 1X ONCE IV 06/03/19 16:15 06/03/19 16:22 DC 06/03/19 16:28 Ceftriaxone Sodium (Rocephin) 1 gm 1X ONCE IVP 06/03/19 17:30 06/03/19 17:40 DC 06/03/19 17:33 Ondansetron HCl (Zofran) 4 mg PRN Q8HRS PRN IV NAUSEA/VOMITING 06/03/19 17:30 06/04/19 17:29 06/03/19 17:45 Fentanyl Citrate (Fentanyl 2ml Vial) 50 mcg PRN Q1HR PRN IV PAIN 06/03/19 17:30 06/04/19 17:29 06/04/19 09:25 Sodium Chloride 1,000 ml @ 100 mls/hr Q10H IV 06/03/19 17:23 06/04/19 17:22 06/04/19 03:34 Piperacillin Sod/ Tazobactam Sod 3.375 gm/Sodium Chloride 50 ml @ 100 mls/hr Q6HRS IV 06/04/19 08:00 06/04/19 09:25 Chlorhexidine Gluconate (Peridex) 15 ml BID SWSP 06/04/19 09:00 06/04/19 09:25 Pantoprazole Sodium (Protonix) 40 mg DAILYAC PO 06/04/19 10:00 06/04/19 10:41 WHIT CABA III DO Jun 04, 2019 11:21
[2019-06-04] MEDS: amLODIPine BESYLATE 10 MG TABLET PO SCH (11:44)
[2019-06-04] MEDS: GABAPENTIN 300 MG CAPSULE. PO SCH ×3 (11:44→22:39)
--- NOTE | 2019-06-04 11:46 | NUR ---
SS following for discharge planning. SS reviewed pt chart. Pt is a self pay pt. HCFS following for self pay status. Pt is from home and is currently on room air. No discharge needs noted at this time. SS will continue to follow for discharge planning.
[2019-06-04] MEDS ORDERED: ONDANSETRON ODT 4 MG TAB.RAPDIS. PO SCH (14:00)
[2019-06-04 15:00] VITALS: BP 131/95
[2019-06-04] MEDS ORDERED: NICOTINE 14MG PATCH. TD PRN (15:15)
[2019-06-04] MEDS: HYDROcodone/APAP 5/325MG 1 TAB TABLET PO PRN ×2 (19:14→22:39)
[2019-06-04 19:20] VITALS: BP 131/92
[2019-06-04 22:35] VITALS: BP 135/90
--- NOTE | 2019-06-05 02:08 | CONS ---
DATE OF CONSULTATION: 06/04/2019 INFECTIOUS DISEASE CONSULTATION NOTE LOCATION: The patient's room is 248. REQUESTING PHYSICIAN: Dr. Vleoz. REASON FOR CONSULTATION: Questionable sepsis. HISTORY OF PRESENT ILLNESS: The patient is a 54-year-old female with history of nausea, vomiting and cyclic vomiting as well as known peptic ulcer disease. She states on Monday late in the evening she began to have her normal pattern of nausea, vomiting started with food, then bilious type vomit and then she did have a little blood in her vomit, but she did not get the typical burning that she gets from her peptic ulcer disease when this occurs. She states she had some chills and some sweats and some increasing pain, so she presented to [facility] on the . Urinalysis was collected, was not consistent with UTI. White blood cell count was 12.3 with 79 segs and 4 bands. Her creatinine was 1.2. Lactic acid was 4.4. She had normal liver function study tests. She underwent a chest x-ray, does show acute process. CT scan of the abdomen and pelvis was performed, showed thickening of the colonic wall at the center of the splenic flexure extending to involve the distal transverse colon, proximal descending colon, similar appearance from 04/08. She was given a dose of Rocephin and admitted to the hospital. Currently, she is n.p.o., sitting upright in bed. She has a little bit of congestion, but she is a smoker. She is trying to quit. She also has pain in her right lower molar area, for which she has been using numbing agent for several weeks on. Denies any urinary symptoms. Denies any falls. PAST MEDICAL HISTORY: Positive for hypertension, gastroesophageal reflux disease, gastroparesis, H. pylori, depression, hypertensive urgency, rheumatoid arthritis. PAST SURGICAL HISTORY: Positive for right ankle open reduction internal fixation, exploratory abdominal surgery. REVIEW OF SYSTEMS: Otherwise negative. ALLERGIES: Listed as PENICILLIN causes welts, but she is tolerating amoxicillin. SOCIAL HISTORY: She is a smoker, also has a history of marijuana use. No pets. FAMILY HISTORY: Positive for coronary artery disease, diabetes, and hypertension. CURRENT MEDICATIONS: Include Rocephin, Pepcid, Toradol x 1, Reglan, Zofran. PHYSICAL EXAMINATION: VITAL SIGNS: She has been afebrile, temperature 98.7, pulse 92, respirations 18, blood pressure 139/100, satting 99% on room air. Blood pressure was 200s/100s earlier. CONSTITUTIONAL: She is cooperative. She is in no acute distress. She is sitting upright in bed. HEENT: Pupils equal and reactive. She has normal conjunctivae. Oral cavity has poor dentition particularly her right molar, appear to be eroding on the lower area. No gross gingivitis. Oral cavity: Oropharynx was without thrush. NECK: Supple with good range of motion. LUNGS: Clear to auscultation without wheeze or rhonchi. HEART: S1, S2. ABDOMEN: Soft. It is nondistended. It is tender. There is no guarding. EXTREMITIES: Without clubbing, cyanosis or gross edema. SKIN: Warm to touch without signs or rash. NEUROLOGIC: She is nonfocal. PSYCHIATRIC: Affect is appropriate. LABORATORY VALUES: White count was 20.3, hemoglobin 17.1, platelets of 270 with 79 segs, 4 bands, 9 lymphs. Lactic acid was 4.4, creatinine today is 0.9. Normal liver function study tests. Glucose 106. Normal troponins. Urinalysis is not consistent with urinary tract infection. Radiology reviewed in history of present illness. IMPRESSION: 1. Leukocytosis. 2. Lactic acidosis. 3. PENICILLIN allergy, but has tolerated amoxicillin. 4. Tooth infection, right lower molar. 5. Nausea, vomiting, and dehydration. RECOMMENDATIONS: For now, we will begin IV Zosyn, given the Unasyn shortage, also add Peridex. Obtain a CT of maxillofacial area. I anticipate change to Augmentin when cleared by GI for orals. Follow up lab and cultures, needs dental evaluation, colonic changes on CT per GI. This was discussed with nursing. Thank you for allowing me to participate in the patient's care. If you have any questions, please do not hesitate to contact me. IRMA VILLANUEVA MD DR: MANUELA/lev JOB#: [id number] / [id number]
[2019-06-05 02:50] VITALS: BP 133/98
[2019-06-05] MEDS: HYDROcodone/APAP 5/325MG 1 TAB TABLET PO PRN ×4 (02:59→17:21)
[2019-06-05] MEDS: PIPERACILLIN/TAZOBACTAM 3.375 GM in IV NORMAL SALINE 50ML 50 ML IV SCH ×3 (05:20→16:35)
[2019-06-05 05:32] LABS: CREATININE 1.1 mg/dL (0.6-1.0); GFR 62.4; POTASSIUM 3.2 mmol/L (3.5-5.1)
[2019-06-05] MEDS: PANTOPRAZOLE 40 MG TABLET.DR. PO SCH (06:44)
--- NOTE | 2019-06-05 06:49 | PDOC ---
Infectious Disease Note Subjective Subjective Better. tooth some better + sweats and subjective fever No N/V/D/SOARash ROS ROS o/w neg Vital Sign Vital Signs Vital Signs Date Time Temp Pulse Resp B/P (MAP) Pulse Ox O2 Delivery O2 Flow Rate FiO2 06/05/19 04:16 18 97 Room Air 06/05/19 02:50 98.3 74 133/98 (110) 98.3 Physical Exam PHYSICAL EXAM CONSTITUTIONAL: She is cooperative. She is in no acute distress. She is sitting upright in bed. - Looks well HEENT: Pupils equal and reactive. She has normal conjunctivae. Oral cavity has poor dentition particularly her right molar, appear to be eroding on the lower area. No gross gingivitis. Oral cavity: Oropharynx was without thrush. NECK: Supple with good range of motion. LUNGS: Clear to auscultation without wheeze or rhonchi. HEART: S1, S2. ABDOMEN: Soft. It is nondistended. It is tender. There is no guarding. EXTREMITIES: Without clubbing, cyanosis or gross edema. SKIN: Warm to touch without signs or rash. NEUROLOGIC: She is nonfocal. PSYCHIATRIC: Affect is appropriate. Labs Lab Laboratory Tests Test 06/05/19 04:20 Sodium Level 140 mmol/L (136-145) Potassium Level 3.2 mmol/L (3.5-5.1) Chloride Level 105 mmol/L (98-107) Carbon Dioxide Level 25 mmol/L (21-32) Anion Gap 10 (6-14) Blood Urea Nitrogen 13 mg/dL (7-20) Creatinine 1.1 mg/dL (0.6-1.0) Estimated GFR (Cockcroft-Gault) 62.4 Glucose Level 111 mg/dL (70-99) Calcium Level 9.0 mg/dL (8.5-10.1) Micro CT maxofacial 06/04 IMPRESSION: Large cavity within the second right mandibular molar with periapical lucency, likely periapical abscess. No definite associated soft tissue swelling or abscess is seen although evaluation limited by streak artifact and lack of IV contrast. Microbiology 06/03/19 Blood Culture - Preliminary, Resulted NO GROWTH AFTER 1 DAY Objective Assessment Leukocytosis - better Lactic acidosis PCN allergy - has tolerated Amox Tooth infection R lower molar- periapical abcess N/v/dehydration Plan Plan of Care Cont IV zosyn for now Peridex Consult Dr. Esparza to see if he can offer input Anticipate change to po Augmentin when cleared by GI for orals F/u labs and cults Need dental eval Colonic changes on CT per GI d/w nursing IRMA VILLANUEVA MD Jun 05, 2019 06:49
[2019-06-05 07:21] VITALS: BP 125/86
[2019-06-05] MEDS: GABAPENTIN 300 MG CAPSULE. PO SCH ×2 (08:59→14:57)
[2019-06-05] MEDS: amLODIPine BESYLATE 10 MG TABLET PO SCH (08:59)
[2019-06-05] MEDS: CHLORHEXIDINE 0.12% 15 ML MOUTHWASH. SWSP SCH (08:59)
[2019-06-05] MEDS ORDERED: POTASSIUM CHLORIDE 20 MEQ TABLET.ER. PO ONE (09:45)
[2019-06-05 10:15] VITALS: BP 151/111
--- NOTE | 2019-06-05 12:31 | PDOC ---
[facility] PROGRESS NOTE Chief Complaint Chief Complaint Hyperemesis Sepsis History of Present Illness History of Present Illness 06/05/19 Pt was seen and examined Pt was eating breakfast and watching TV She is ready to leave but complains of right lower jaw pain with an abscess. Consulted Dr. Wilson on phone to continue antibiotics 54-year-old female well known to our service. Presented on 06/03/19 with hyperemesis. Seen in the ER and admitted for sepsis. Given IV fluids and antibiotics. Pt was seen and examined at bedside. Was alert, awake, and oriented. Vitals/I&O Vitals/I&O: Vital Signs Date Time Temp Pulse Resp B/P (MAP) Pulse Ox O2 Delivery O2 Flow Rate FiO2 06/05/19 10:15 98.3 92 18 151/111 (124) 99 Room Air 98.3 I & O 06/04/19 06/04/19 06/05/19 15:00 23:00 07:00 Intake Total 100 ml 410 ml Balance 100 ml 410 ml Physical Exam Physical Exam: CONSTITUTIONAL: She is cooperative. She is in no acute distress. She is sitting upright in bed. - Looks well HEENT: Pupils equal and reactive. She has normal conjunctivae. Oral cavity has poor dentition particularly her right molar, appear to be eroding on the lower area. No gross gingivitis. Oral cavity: Oropharynx was without thrush. NECK: Supple with good range of motion. LUNGS: Clear to auscultation without wheeze or rhonchi. HEART: S1, S2. ABDOMEN: Soft. It is nondistended. It is tender. There is no guarding. EXTREMITIES: Without clubbing, cyanosis or gross edema. SKIN: Warm to touch without signs or rash. NEUROLOGIC: She is nonfocal. PSYCHIATRIC: Affect is appropriate. General: Alert, Oriented X3, Cooperative Heart: Regular rate Lungs: Clear Abdomen: Normal bowel sounds Extremities: No clubbing, No cyanosis, No edema, Normal pulses Skin: No rashes, No breakdown Labs Labs: Laboratory Tests Test 06/05/19 04:20 Sodium Level 140 mmol/L (136-145) Potassium Level 3.2 mmol/L (3.5-5.1) Chloride Level 105 mmol/L (98-107) Carbon Dioxide Level 25 mmol/L (21-32) Anion Gap 10 (6-14) Blood Urea Nitrogen 13 mg/dL (7-20) Creatinine 1.1 mg/dL (0.6-1.0) Estimated GFR (Cockcroft-Gault) 62.4 Glucose Level 111 mg/dL (70-99) Calcium Level 9.0 mg/dL (8.5-10.1) Review of Systems Review of Systems: Co dental pain Denies chest pain Assessment and Plan Assessmemt and Plan Problems Medical Problems: (1) Hematemesis Status: Acute (2) Sepsis Status: Acute Assessment Leukocytosis Lactic acidosis PCN allergy - has tolerated Amox Tooth abscess right N/v/dehydration Plan Awaiting oral surgery consult Cardiac monitoring Pain management PRN IV antibiotics Home meds Trend WBCs 40mg potassium DVT prophylaxis Comment Review of Relevant I have reviewed the following items starr (where applicable) has been applied. Medications: Current Medications Medications (Trade) Dose Ordered Sig/Emile Route PRN Reason Start Time Stop Time Status Last Admin Dose Admin Nicotine (Nicoderm Cq 14mg) 1 patch PRN DAILY PRN TD SMOKING CESSATION 06/04/19 15:15 06/04/19 17:29 WHIT CABA III DO Jun 05, 2019 12:30
--- NOTE | 2019-06-05 13:43 | PDOC ---
Subjective: Subjective: Feels better. We discussed ongoing workup - she began to cry - has to go to an appointment on Monday morning and can't miss - it's about getting her grandchild back. Says she has cyclic vomiting. Objective: Objective: D/w Dr. Mccarty who d/w radiology nuc med - could consider octreotide scan for pheo - would take a few days to obtain tracer. D/w nurse who d/w Dr. Veloz who recommended ordering this. Vital Signs: Vital Signs Date Time Temp Pulse Resp B/P (MAP) Pulse Ox O2 Delivery O2 Flow Rate FiO2 06/05/19 12:39 99 Room Air 06/05/19 10:15 98.3 92 18 151/111 (124) 98.3 Labs: Laboratory Tests Test 06/05/19 04:20 Sodium Level 140 mmol/L Potassium Level 3.2 mmol/L Chloride Level 105 mmol/L Carbon Dioxide Level 25 mmol/L Anion Gap 10 Blood Urea Nitrogen 13 mg/dL Creatinine 1.1 mg/dL Estimated GFR (Cockcroft-Gault) 62.4 Glucose Level 111 mg/dL Calcium Level 9.0 mg/dL BLOOD CULTURE Preliminary NO GROWTH AFTER 1 DAY Imaging: Maxillofacial CT IMPRESSION: Large cavity within the second right mandibular molar with periapical lucency, likely periapical abscess. No definite associated soft tissue swelling or abscess is seen although evaluation limited by streak artifact and lack of IV contrast PE: GEN: NAD LUNGS: CTAB HEART: RRR ABD: NABS, S/ND/NT NEURO/PSYCH: A & O �3, sobbing A/P: Recurrent n/v, abd pain, uncontrolled HTN - better Dental abscess -- Nurse to discuss w/ nuc med - seems unlikely pt would stay if scan unable to be done tomorrow due to family issues. Abnormal urine collections for metanephrines and VMA last admission - concern for pheo or paraganglionoma - recurrent admissions, uninsured, etc. ANDRES HOFFMAN Jun 05, 2019 13:43
[2019-06-05 14:17] VITALS: BP 135/100
--- NOTE | 2019-06-05 15:42 | NUR ---
SS following up with discharge planning. SS spoke with HCFS, Sheryl Lynch, and discussed pt. Sheryl reported that pt does not qualify for disability at this time and is currently working and does not currently meet criteria for Medicaid at this time. Sheryl recommended that pt go to the market place and see if she could find an affordable plan that could work for her. SS met with pt and discussed. Pt reported having difficulties paying her bills and reported that her wages are being garnished from hospital stays in 2004 and 2008. She requested to speak with someone in billing. SS contact HCFS and billing and was provided the number for financial assistance, . SS provided pt with contact information for financial assistance. SS will continue to follow for discharge planning.
[2019-06-05] MEDS ORDERED: AMOX1TAB61 PO (16:16)
--- NOTE | 2019-06-05 17:34 | NUR ---
Discharge Note: DANIELA MANUEL [address] Discharge instructions and discharge home medications reviewed with Patient and a copy given. All questions have been answered and understanding verbalized. Antibiotic script called into [facility] pharmacy, pt verbalized understanding.
[2019-06-05] MEDS ORDERED: LACTOBACILLUS RHAMNOSUS GG 1 CAPSULE. PO SCH (21:00)
--- NOTE | 2019-06-06 08:54 | DS ---
DATE OF DISCHARGE: 06/05/2019 ADMISSION DIAGNOSIS: Sepsis. DISCHARGE DIAGNOSES: Resolving sepsis. HOSPITAL COURSE: The patient is a pleasant 54-year-old female, who presented with sepsis. She was admitted. We gave her IV antibiotics. We consulted ID. She also had a tooth that was bothering her. We consulted Oral Surgery, but they were out of town. The patient was doing well yesterday. We discharged to home with p.o. antibiotics. DISPOSITION: Home. ACTIVITY: As tolerated. DIET: Low sodium. MEDICATIONS: Please see the MRAD. TOTAL TIME: 31 minutes. JUANAL Lory CABA DO DR: SHELBY/lev JOB#: [id number] / [id number]
== END 2019-06-05 17:36 | disposition home or self-care (01) | DRG 872 ==
LOC: ER 12:43 → 2 SOUTH 17:26
PROVIDERS: ADMIT Internal Medicine; ATTEND Internal Medicine
DX: A41.9 Sepsis, unspecified organism (principal); F11.20 Opioid dependence, uncomplicated; K92.0 Hematemesis; E86.0 Dehydration; F17.200 Nicotine dependence, unspecified, uncomplicated; F32.9 Major depressive disorder, single episode, unspecified; G43.A0 Cyclical vomiting, in migraine, not intractable; I10 Essential (primary) hypertension; K04.7 Periapical abscess without sinus; K21.9 Gastro-esophageal reflux disease without esophagitis; M06.9 Rheumatoid arthritis, unspecified; Z82.49 Family history of ischemic heart disease and other diseases of the circulatory system; Z87.11 Personal history of peptic ulcer disease; Z88.0 Allergy status to penicillin; Z83.3 Family history of diabetes mellitus; Z79.899 Other long term (current) drug therapy
CPT/HCPCS: 36415; 70486; 71046; 74176; 80048; 80053; 80307; 81001; 83605; 83690; 84484; 85007; 85025; 87040; 93005; 96361; 96374; 96375; 96376; J0696; J1885; J2405; J2543; J2765; J3010; J3490; J7030; 99285-25; G0378

== ENCOUNTER 2019-06-09 10:18 | Inpatient (IN) | payer SELFPAY ==
[2019-06-09] VITALS (8 sets, daily range): BP systolic 103–170; BP diastolic 68–116
[~2019-06-09] VITALS: Ht 170.2 cm; Wt 60.8 kg
[~2019-06-09 10:18] MED LIST changes: +AMOX1TAB61 PO; +RANI150C PO
[2019-06-09] MEDS ORDERED: IV NORMAL SALINE 1000ML BAG 1,000 ML IV SCH (10:47)
--- NOTE | 2019-06-09 10:53 | PHYS DOC ---
Past Medical History Past Medical History: Hypertension, Other Additional Past Medical Histor: stomach ulcers Past Surgical History: No Surgical History Additional Past Surgical Histo: foot surgery, explor. abd sx Alcohol Use: None Drug Use: None Adult General Chief Complaint Chief Complaint: NAUSEA/VOMITING/DIARRHA HPI HPI Patient is a 54-year-old female, who has had numerous recent hospitalizations for recurrent vomiting, and presents to the emergency department for evaluation. She is exhibiting hyperventilation, extreme anxiety, and coughing and gagging, she has not exhibited any actual emesis in the emergency department. She does not have any new abdominal pain. She states that she started vomiting this morning. She reports 2 episodes of loose stools in the past 24 hours. She has not had any bloody stools. She denies any chest pain or shortness of breath. There are no alleviating or exacerbating factors to her symptoms otherwise. Notes from her recent hospitalizations, as well as prior imaging has been reviewed. Review of Systems Review of Systems Constitutional: Denies fever or chills [] Eyes: Denies change in visual acuity, redness, or eye pain [] HENT: Denies nasal congestion or sore throat [] Respiratory: Denies shortness of breath [] Cardiovascular:The patient denies any shortness of breath, chest pain, palpitations, or orthopnea [] GI: No additional information not addressed in HPI [] : Denies dysuria or hematuria [] Musculoskeletal: Denies back pain or joint pain [] Integument: Denies rash or skin lesions [] Neurologic: Denies headache, focal weakness or sensory changes [] Endocrine: Denies polyuria or polydipsia [] All other systems were reviewed and found to be within normal limits, except as documented in this note. Current Medications Current Medications Current Medications Medications (Trade) Dose Ordered Sig/Emile Start Time Stop Time Status Last Admin Dose Admin Haloperidol Lactate (Haldol Inj) 2.5 mg 1X ONCE 06/09/19 13:15 06/09/19 13:21 DC 06/09/19 13:28 2.5 MG Labetalol HCl (Normodyne Iv Push) 40 mg 1X ONCE 06/09/19 14:30 06/09/19 14:31 Lorazepam (Ativan Inj) 1 mg 1X ONCE 06/09/19 13:15 06/09/19 13:21 DC 06/09/19 13:28 1 MG Sodium Chloride 1,000 ml @ 1,000 mls/hr Q1H 06/09/19 10:47 06/09/19 11:46 DC 06/09/19 11:34 1,000 MLS/HR Allergies Allergies Allergies Coded Allergies Type Severity Reaction Last Updated Verified Penicillins Allergy Intermediate HAS TOLERATED AMOXICILLIN 06/04/19 Yes Physical Exam Physical Exam PHYSICAL EXAM: CONSTITUTIONAL: Well developed, well nourished HEAD: normocephalic, atraumatic EENT: PERRL, EOMI. Conjunctivae normal color, sclerae non-icteric; moist mucous membranes. NECK: Supple, non-tender; no meningismus. LUNGS: Lungs CTA, the patient is hyperventilating. Normal air movement. HEART: Regular rate and rhythm, no murmur CHEST: No deformity; non-tender ABDOMEN: The abdomen is soft, and non-tender, no masses or bruits. Normal bowel sounds are present. EXTREM: Normal ROM; no deformity, no calf tenderness. Normal pulses palpable in all extremities. There is no pedal edema. SKIN: No rash; no diaphoresis NEURO: Alert; normal speech and cognition; CN's grossly intact; strength grossly intact without focal deficit. BACK: No CVA TTP. PSYCHIATRIC: The patient exhibits extreme anxiety. She is hyperventilating. Current Patient Data Vital Signs Vital Signs Date Time Temp Pulse Resp B/P (MAP) Pulse Ox O2 Delivery O2 Flow Rate FiO2 06/09/19 13:44 103 261/149 06/09/19 12:58 94 Room Air 06/09/19 12:57 16 06/09/19 10:50 96.9 96.9 Lab Values Laboratory Tests Test 06/09/19 10:47 06/09/19 11:16 06/09/19 11:50 06/09/19 12:50 O2 Saturation 97 % (92-99) Arterial Blood pH 7.53 (7.35-7.45) H Arterial Blood pCO2 at Patient Temp 31 mmHg (35-46) L Arterial Blood pO2 at Patient Temp 82 mmHg (75-108) Arterial Blood HCO3 25 mmol/L (21-28) Arterial Blood Base Excess 3 mmol/L (-3-3) FiO2 21% on ra Urine Collection Type Unknown Urine Color Yellow Urine Clarity Clear Urine pH 8.0 Urine Specific Mears 1.010 Urine Protein Negative mg/dL (NEG-TRACE) Urine Glucose (UA) Negative mg/dL (NEG) Urine Ketones (Stick) Negative mg/dL (NEG) Urine Blood Trace (NEG) Urine Nitrite Negative (NEG) Urine Bilirubin Negative (NEG) Urine Urobilinogen Dipstick 0.2 mg/dL (0.2 mg/dL) Urine Leukocyte Esterase Negative (NEG) Urine RBC 3-5 /HPF (0-2) Urine WBC 0 /HPF (0-4) Urine Squamous Epithelial Cells Mod /LPF Urine Bacteria 0 /HPF (0-FEW) White Blood Count 6.8 x10^3/uL (4.0-11.0) Red Blood Count 5.65 x10^6/uL (3.50-5.40) H Hemoglobin 16.2 g/dL (12.0-15.5) H Hematocrit 49.4 % (36.0-47.0) H Mean Corpuscular Volume 87 fL (79-100) Mean Corpuscular Hemoglobin 29 pg (25-35) Mean Corpuscular Hemoglobin Concent 33 g/dL (31-37) Red Cell Distribution Width 15.2 % (11.5-14.5) H Platelet Count 170 x10^3/uL (140-400) Neutrophils (%) (Auto) 72 % (31-73) Lymphocytes (%) (Auto) 22 % (24-48) L Monocytes (%) (Auto) 5 % (0-9) Eosinophils (%) (Auto) 0 % (0-3) Basophils (%) (Auto) 1 % (0-3) Neutrophils # (Auto) 4.9 x10^3/uL (1.8-7.7) Lymphocytes # (Auto) 1.5 x10^3/uL (1.0-4.8) Monocytes # (Auto) 0.4 x10^3/uL (0.0-1.1) Eosinophils # (Auto) 0.0 x10^3/uL (0.0-0.7) Basophils # (Auto) 0.0 x10^3/uL (0.0-0.2) Lactic Acid Level 3.4 mmol/L (0.4-2.0) H Sodium Level 139 mmol/L (136-145) Potassium Level 3.1 mmol/L (3.5-5.1) L Chloride Level 99 mmol/L (98-107) Carbon Dioxide Level 27 mmol/L (21-32) Anion Gap 13 (6-14) Blood Urea Nitrogen 14 mg/dL (7-20) Creatinine 0.9 mg/dL (0.6-1.0) Estimated GFR (Cockcroft-Gault) 78.7 BUN/Creatinine Ratio 16 (6-20) Glucose Level 118 mg/dL (70-99) H Calcium Level 10.7 mg/dL (8.5-10.1) H Total Bilirubin 1.1 mg/dL (0.2-1.0) H Aspartate Amino Transferase (AST) 21 U/L (15-37) Alanine Aminotransferase (ALT) 14 U/L (14-59) Alkaline Phosphatase 90 U/L (46-116) Troponin I Quantitative < 0.017 ng/mL (0.000-0.055) FJ-Cec-A-Type Natriuretic Peptide 416 pg/mL (0-124) H Total Protein 9.9 g/dL (6.4-8.2) H Albumin 4.5 g/dL (3.4-5.0) Albumin/Globulin Ratio 0.8 (1.0-1.7) L Lipase 67 U/L (73-393) L Laboratory Tests 06/09/19 11:50 Laboratory Tests 06/09/19 12:50 EKG EKG [Normal sinus rhythm at a rate of 97 beats for minute, normal axis, normal intervals, nonspecific ST/T changes are present.] Radiology/Procedures Radiology/Procedures [PROCEDURE: PORTABLE CHEST 1V AP portable chest 06/09/2019. Reason for exam: Cough. Comparison is made with a study of 06/03/2019. No infiltrate or effusion is seen. Heart size and pulmonary vascularity appear normal. Impression: No acute disease.] Course & Med Decision Making Course & Med Decision Making Pertinent Labs and Imaging studies reviewed. (See chart for details) []2:25 PM: The patient's condition remains stable. I spoke with the hospitalist, who accepted the patient to the hospital for further evaluation and treatment. Blood pressure improved slightly but still elevated. Patient appears normal, on, but still states she is too sick to go home. Dragon Disclaimer Dragon Disclaimer This electronic medical record was generated, in whole or in part, using a voice recognition dictation system. Departure Departure Impression: Primary Impression: Cyclic vomiting syndrome Additional Impression: Hypertensive urgency Disposition: 09 ADMITTED INPATIENT Admitting Physician: HOLLY Condition: STABLE Referrals: UNKNOWN PCP NAME (PCP) Problem Qualifiers WENDY BROWN MD Jun 09, 2019 10:53
[2019-06-09] MEDS ORDERED: HALOPERIDOL LACTATE 5 MG/ML VIAL. IVP ONE ×2 (11:00→13:15)
[2019-06-09 11:30] LABS: BILIRUBIN,URINE NEGATIVE (NEG); CLARITY,URINE CLEAR; COLOR,URINE YELLOW; NITRITE,URINE NEGATIVE (NEG); PROTEIN,URINE NEGATIVE (NEG-TRACE); UROBILINOGEN,URINE 0.2 mg/dL (0.2 mg/dL)
--- NOTE | 2019-06-09 11:37 | RAD ---
AP portable chest 06/09/2019. Reason for exam: Cough. Comparison is made with a study of 06/03/2019. No infiltrate or effusion is seen. Heart size and pulmonary vascularity appear normal. Impression: No acute disease. Electronically signed by: Jaquan Garcia Jr., MD (06/09/2019 11:34 AM) [facility]
[2019-06-09 11:42] LABS: BACTERIA,URINE 0 /HPF (0-FEW); SQUAMOUS EPITHELIAL CELL,UR MOD /LPF; WBC,URINE 0 /HPF (0-4)
[2019-06-09 12:10] LABS: BASO % 1 % (0-3); EOS % 0 % (0-3); HEMATOCRIT 49.4 % (36.0-47.0); HEMOGLOBIN 16.2 g/dL (12.0-15.5); LYMPH # 1.5 x10^3/uL (1.0-4.8); LYMPH % 22 % (24-48); MEAN CORPUSCULAR HEMOGLOBIN 29 pg (25-35); MEAN CORPUSCULAR HGB CONC 33 g/dL (31-37); MEAN CORPUSCULAR VOLUME 87 fL (79-100); MONO # 0.4 x10^3/uL (0.0-1.1); MONO % 5 % (0-9); NEUT # 4.9 x10^3/uL (1.8-7.7); NEUT % 72 % (31-73); PLATELET COUNT 170 x10^3/uL (140-400); RED BLOOD COUNT 5.65 x10^6/uL (3.50-5.40); RED CELL DISTRIBUTION WIDTH 15.2 % (11.5-14.5); WHITE BLOOD COUNT 6.8 x10^3/uL (4.0-11.0)
[2019-06-09] MEDS ORDERED: IV NORMAL SALINE 1000ML BAG 1,000 ML IV ONE (13:00)
[2019-06-09 13:07] LABS: CALCIUM 10.7 mg/dL (8.5-10.1); CREATININE 0.9 mg/dL (0.6-1.0); GFR 78.7; POTASSIUM 3.1 mmol/L (3.5-5.1)
[2019-06-09 13:13] LABS: ALBUMIN 4.5 g/dL (3.4-5.0); ALBUMIN/GLOBULIN RATIO 0.8 (1.0-1.7); TOTAL BILIRUBIN 1.1 mg/dL (0.2-1.0); TOTAL PROTEIN 9.9 g/dL (6.4-8.2)
[2019-06-09] MEDS ORDERED: LABETALOL 20 MG/4 ML DISP.SYRIN. IVP ONE ×2 (13:15→14:30)
[2019-06-09 13:52] LABS: BASE EXCESS ABG 3 mmol/L (-3-3); HCO3 ABG 25 mmol/L (21-28); PCO2 ABG 31 mmHg (35-46); PO2 ABG 82 mmHg (75-108); SAT O2 ABG 97 % (92-99)
[2019-06-09 13:54] LABS: FIO2 ABG 21% ON RA
--- NOTE | 2019-06-09 14:30 | PDOC1 ---
History and Physical Date of Admission Date of Admission DATE: 06/09/19 TIME: 14:29 Identification/Chief Complaint Chief Complaint seen in er , 54-year-old female, who has had numerous recent hospitalizations for recurrent vomiting, and presents to the emergency department for evaluation. exhibiting hyperventilation, extreme anxiety, and coughing and gagging, she has not exhibited any actual emesis in the emergency department. bp uncontrolled, She does not have any new abdominal pain. She states that she started vomiting this morning. She reports 2 episodes of loose stools in the past 24 hours. She has not had any bloody stools. She denies any chest pain or shortness of breath. given iv labetalol without improvement in bp Past Medical History Past Medical History Past Medical History Past Medical History: Hypertension, Other Additional Past Medical Histor: stomach ulcers Past Surgical History: No Surgical History Additional Past Surgical Histo: foot surgery, explor. abd sx Alcohol Use: None Drug Use: None FHX HTN PAST MEDICAL HISTORY: Positive for hypertension, gastroesophageal reflux disease, gastroparesis, H. pylori, depression, hypertensive urgency, rheumatoid arthritis. PAST SURGICAL HISTORY: Positive for right ankle open reduction internal fixation, exploratory abdominal surgery. REVIEW OF SYSTEMS: Otherwise negative. ALLERGIES: Listed as PENICILLIN causes welts, but she is tolerating amoxicillin. SOCIAL HISTORY: She is a smoker, also has a history of marijuana use. No pets. FAMILY HISTORY: Positive for coronary artery disease, diabetes, and hypertension. Cardiovascular: HTN, Hyperlipidemia Pulmonary: No pertinent hx GI: GERD, Other Hepatobiliary: No pertinent hx Psych: Anxiety, Depression Rheumatologic: Rheumatoid arthritis Infectious disease: No pertinent hx Renal/: No pertinent hx Endocrine: No pertinent hx Past Surgical History Past Surgical History: Other Family History Family History: Diabetes, Heart Disease Social History Smoke: <1 pack per day ALCOHOL: none Drugs: Marijuana Current Problem List Problem List Problems Medical Problems: (1) Hypertensive urgency Status: Acute Current Medications Current Medications Current Medications Haloperidol Lactate (Haldol Inj) 2.5 mg 1X ONCE IVP Last administered on 06/09/19at 11:34; Start 06/09/19 at 11:00; Stop 06/09/19 at 11:01; Status DC Lorazepam (Ativan Inj) 1 mg 1X ONCE IV Last administered on 06/09/19at 11:34; Start 06/09/19 at 11:00; Stop 06/09/19 at 11:01; Status DC Sodium Chloride 1,000 ml @ 1,000 mls/hr Q1H IV Last administered on 06/09/19at 11:34; Start 06/09/19 at 10:47; Stop 06/09/19 at 11:46; Status DC Haloperidol Lactate (Haldol Inj) 2.5 mg 1X ONCE IVP Last administered on 06/09/19at 13:28; Start 06/09/19 at 13:15; Stop 06/09/19 at 13:21; Status DC Lorazepam (Ativan Inj) 1 mg 1X ONCE IV Last administered on 06/09/19at 13:28; Start 06/09/19 at 13:15; Stop 06/09/19 at 13:21; Status DC Labetalol HCl (Normodyne Iv Push) 20 mg 1X ONCE IVP Last administered on 06/09/19at 13:44; Start 06/09/19 at 13:15; Stop 06/09/19 at 13:21; Status DC Labetalol HCl (Normodyne Iv Push) 40 mg 1X ONCE IVP ; Start 06/09/19 at 14:30; Stop 06/09/19 at 14:31 Active Scripts Active Pantoprazole Sodium (Pantoprazole Sodium) 40 Mg Tablet.dr 40 Mg PO DAILYAC Zofran (Ondansetron Hcl) 4 Mg Tablet 1 Tab PO Q6HRS Hydrocodone-Apap 5-325 (Hydrocodone Bit/Acetaminophen) 1 Tab Tablet 1 Tab PO PRN Q4HRS PRN Zofran Odt (Ondansetron) 4 Mg Tab.rapdis 1 Tab SL Q8HRS Reported Augmentin 875-125 Tablet (Amoxicillin/Potassium Clav) 1 Each Tablet 1 Tab PO BID 7 Days Ranitidine Hcl 150 Mg Capsule 1 Cap PO BID Cyclobenzaprine Hcl 10 Mg Tablet 1 Tab PO PRN TID PRN Amlodipine Besylate 10 Mg Tablet 10 Mg PO DAILY Gabapentin 300 Mg Capsule 300 Mg PO TID Allergies Allergies: Coded Allergies: Penicillins (Verified Allergy, Intermediate, HAS TOLERATED AMOXICILLIN, 06/04/19) ROS Review of System Review of Systems Review of Systems Constitutional: Denies fever or chills [] Eyes: Denies change in visual acuity, redness, or eye pain [] HENT: Denies nasal congestion or sore throat [] Respiratory: Denies shortness of breath [] Cardiovascular:The patient denies any shortness of breath, chest pain, palpitat ions, or orthopnea [] GI: No additional information not addressed in HPI [] : Denies dysuria or hematuria [] Musculoskeletal: Denies back pain or joint pain [] Integument: Denies rash or skin lesions [] Neurologic: Denies headache, focal weakness or sensory changes [] is sleepy Endocrine: Denies polyuria or polydipsia [] 14 pt systems were reviewed and found to be within normal limits, except as documented . General: YES: Fatigue PSYCHOLOGICAL ROS: YES: Depression, Memory difficulties Gastrointestinal: Yes Nausea, Yes Vomiting Neurological: Yes Confusion Physical Exam Physical Exam Physical Exam Physical Exam PHYSICAL EXAM: CONSTITUTIONAL: Well developed, well nourished HEAD: normocephalic, atraumatic EENT: PERRL, EOMI. Conjunctivae normal color, sclerae non-icteric; moist mucous membranes. NECK: Supple, non-tender; no meningismus. LUNGS: Lungs CTA, the patient is hyperventilating. Normal air movement. HEART: Regular rate and rhythm, no murmur CHEST: No deformity; non-tender ABDOMEN: The abdomen is soft, and non-tender, no masses or bruits. Normal bowel sounds are present. EXTREM: Normal ROM; no deformity, no calf tenderness. Normal pulses palpable in all extremities. There is no pedal edema. SKIN: No rash; no diaphoresis NEURO: Alert; normal speech and cognition; CN's grossly intact; strength grossly intact without focal deficit. BACK: No CVA TTP. PSYCHIATRIC: The patient exhibits extreme anxiety. She is hyperventilating. General: Cooperative, mild distress HEENT: Atraumatic, EOMI Lungs: Clear to auscultation, Normal air movement Heart: S1S2, RRR, no thrills, no gallops Breasts: Not examined Abdomen: Normal bowel sounds, Soft Rectal Exam: not examined PELVIC: Examination not indicated Extremities: No cyanosis Neuro: Cranial nerves 3-12 NL Vitals Vitals Vital Signs Date Time Temp Pulse Resp B/P (MAP) Pulse Ox O2 Delivery O2 Flow Rate FiO2 06/09/19 13:44 103 261/149 06/09/19 12:58 94 Room Air 06/09/19 12:57 16 06/09/19 10:50 96.9 96.9 Labs Labs Laboratory Tests Test 06/09/19 10:47 06/09/19 11:16 06/09/19 11:50 06/09/19 12:50 O2 Saturation 97 % (92-99) Arterial Blood pH 7.53 (7.35-7.45) Arterial Blood pCO2 at Patient Temp 31 mmHg (35-46) Arterial Blood pO2 at Patient Temp 82 mmHg (75-108) Arterial Blood HCO3 25 mmol/L (21-28) Arterial Blood Base Excess 3 mmol/L (-3-3) FiO2 21% on ra Urine Collection Type Unknown Urine Color Yellow Urine Clarity Clear Urine pH 8.0 Urine Specific Varney 1.010 Urine Protein Negative mg/dL (NEG-TRACE) Urine Glucose (UA) Negative mg/dL (NEG) Urine Ketones (Stick) Negative mg/dL (NEG) Urine Blood Trace (NEG) Urine Nitrite Negative (NEG) Urine Bilirubin Negative (NEG) Urine Urobilinogen Dipstick 0.2 mg/dL (0.2 mg/dL) Urine Leukocyte Esterase Negative (NEG) Urine RBC 3-5 /HPF (0-2) Urine WBC 0 /HPF (0-4) Urine Squamous Epithelial Cells Mod /LPF Urine Bacteria 0 /HPF (0-FEW) White Blood Count 6.8 x10^3/uL (4.0-11.0) Red Blood Count 5.65 x10^6/uL (3.50-5.40) Hemoglobin 16.2 g/dL (12.0-15.5) Hematocrit 49.4 % (36.0-47.0) Mean Corpuscular Volume 87 fL (79-100) Mean Corpuscular Hemoglobin 29 pg (25-35) Mean Corpuscular Hemoglobin Concent 33 g/dL (31-37) Red Cell Distribution Width 15.2 % (11.5-14.5) Platelet Count 170 x10^3/uL (140-400) Neutrophils (%) (Auto) 72 % (31-73) Lymphocytes (%) (Auto) 22 % (24-48) Monocytes (%) (Auto) 5 % (0-9) Eosinophils (%) (Auto) 0 % (0-3) Basophils (%) (Auto) 1 % (0-3) Neutrophils # (Auto) 4.9 x10^3/uL (1.8-7.7) Lymphocytes # (Auto) 1.5 x10^3/uL (1.0-4.8) Monocytes # (Auto) 0.4 x10^3/uL (0.0-1.1) Eosinophils # (Auto) 0.0 x10^3/uL (0.0-0.7) Basophils # (Auto) 0.0 x10^3/uL (0.0-0.2) Lactic Acid Level 3.4 mmol/L (0.4-2.0) Sodium Level 139 mmol/L (136-145) Potassium Level 3.1 mmol/L (3.5-5.1) Chloride Level 99 mmol/L (98-107) Carbon Dioxide Level 27 mmol/L (21-32) Anion Gap 13 (6-14) Blood Urea Nitrogen 14 mg/dL (7-20) Creatinine 0.9 mg/dL (0.6-1.0) Estimated GFR (Cockcroft-Gault) 78.7 BUN/Creatinine Ratio 16 (6-20) Glucose Level 118 mg/dL (70-99) Calcium Level 10.7 mg/dL (8.5-10.1) Total Bilirubin 1.1 mg/dL (0.2-1.0) Aspartate Amino Transf (AST/SGOT) 21 U/L (15-37) Alanine Aminotransferase (ALT/SGPT) 14 U/L (14-59) Alkaline Phosphatase 90 U/L (46-116) Troponin I Quantitative < 0.017 ng/mL (0.000-0.055) TX-Ffr-T-Type Natriuretic Peptide 416 pg/mL (0-124) Total Protein 9.9 g/dL (6.4-8.2) Albumin 4.5 g/dL (3.4-5.0) Albumin/Globulin Ratio 0.8 (1.0-1.7) Lipase 67 U/L (73-393) Laboratory Tests Test 06/09/19 10:47 06/09/19 11:16 06/09/19 11:50 06/09/19 12:50 O2 Saturation 97 % (92-99) Arterial Blood pH 7.53 (7.35-7.45) Arterial Blood pCO2 at Patient Temp 31 mmHg (35-46) Arterial Blood pO2 at Patient Temp 82 mmHg (75-108) Arterial Blood HCO3 25 mmol/L (21-28) Arterial Blood Base Excess 3 mmol/L (-3-3) FiO2 21% on ra Urine Collection Type Unknown Urine Color Yellow Urine Clarity Clear Urine pH 8.0 Urine Specific Varney 1.010 Urine Protein Negative mg/dL (NEG-TRACE) Urine Glucose (UA) Negative mg/dL (NEG) Urine Ketones (Stick) Negative mg/dL (NEG) Urine Blood Trace (NEG) Urine Nitrite Negative (NEG) Urine Bilirubin Negative (NEG) Urine Urobilinogen Dipstick 0.2 mg/dL (0.2 mg/dL) Urine Leukocyte Esterase Negative (NEG) Urine RBC 3-5 /HPF (0-2) Urine WBC 0 /HPF (0-4) Urine Squamous Epithelial Cells Mod /LPF Urine Bacteria 0 /HPF (0-FEW) White Blood Count 6.8 x10^3/uL (4.0-11.0) Red Blood Count 5.65 x10^6/uL (3.50-5.40) Hemoglobin 16.2 g/dL (12.0-15.5) Hematocrit 49.4 % (36.0-47.0) Mean Corpuscular Volume 87 fL (79-100) Mean Corpuscular Hemoglobin 29 pg (25-35) Mean Corpuscular Hemoglobin Concent 33 g/dL (31-37) Red Cell Distribution Width 15.2 % (11.5-14.5) Platelet Count 170 x10^3/uL (140-400) Neutrophils (%) (Auto) 72 % (31-73) Lymphocytes (%) (Auto) 22 % (24-48) Monocytes (%) (Auto) 5 % (0-9) Eosinophils (%) (Auto) 0 % (0-3) Basophils (%) (Auto) 1 % (0-3) Neutrophils # (Auto) 4.9 x10^3/uL (1.8-7.7) Lymphocytes # (Auto) 1.5 x10^3/uL (1.0-4.8) Monocytes # (Auto) 0.4 x10^3/uL (0.0-1.1) Eosinophils # (Auto) 0.0 x10^3/uL (0.0-0.7) Basophils # (Auto) 0.0 x10^3/uL (0.0-0.2) Lactic Acid Level 3.4 mmol/L (0.4-2.0) Sodium Level 139 mmol/L (136-145) Potassium Level 3.1 mmol/L (3.5-5.1) Chloride Level 99 mmol/L (98-107) Carbon Dioxide Level 27 mmol/L (21-32) Anion Gap 13 (6-14) Blood Urea Nitrogen 14 mg/dL (7-20) Creatinine 0.9 mg/dL (0.6-1.0) Estimated GFR (Cockcroft-Gault) 78.7 BUN/Creatinine Ratio 16 (6-20) Glucose Level 118 mg/dL (70-99) Calcium Level 10.7 mg/dL (8.5-10.1) Total Bilirubin 1.1 mg/dL (0.2-1.0) Aspartate Amino Transf (AST/SGOT) 21 U/L (15-37) Alanine Aminotransferase (ALT/SGPT) 14 U/L (14-59) Alkaline Phosphatase 90 U/L (46-116) Troponin I Quantitative < 0.017 ng/mL (0.000-0.055) LZ-Wbm-C-Type Natriuretic Peptide 416 pg/mL (0-124) Total Protein 9.9 g/dL (6.4-8.2) Albumin 4.5 g/dL (3.4-5.0) Albumin/Globulin Ratio 0.8 (1.0-1.7) Lipase 67 U/L (73-393) Images Images A few calcified hepatic granulomas are noted. No calcified gallstones seen. No overt biliary ductal dilatation. The pancreas is poorly evaluated but there are no definite peripancreatic inflammatory changes. The spleen is normal in size. The adrenal glands are not well delineated. No intrarenal stones. No evidence for hydronephrosis or hydroureter. The urinary bladder is mildly thick-walled but appears similar to the comparison study. The uterus is not well evaluated but some calcification in the expected location of the posterior uterine fundus, image 145 series 2, is suggestive of a uterine fibroid. Limited evaluation for any adnexal abnormality. There is thickening of the colonic wall at the splenic flexure, image 51 series 2, as well as at the distal aspect of the transverse colon and the proximal aspect of the descending colon which was also seen to be present on the 04/08/2019 comparison. Nonobstructed small bowel. The stomach is somewhat distended and extends into the left lower quadrant. 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 No atherosclerotic calcifications seen at the origins of the celiac and superior mesenteric arteries. Atherosclerotic calcifications. The seen at the infrarenal abdominal aorta and involve the bilateral iliofemoral systems as well. No large volume free fluid seen throughout the abdomen and pelvis and fluid density anterior to the right aspect of the sacrum on image 143 series 2 is difficult to differentiate from free fluid or fluid within small bowel. No free air. Limited evaluation for any pathologically enlarged lymph nodes. No inguinal adenopathy. Scattered degenerative changes involving the lumbar spine, most notable at L4-L5 and L5-S1. No acute osseous abnormality. Impression: 1. The study is significantly degraded due to the absence of intravenous or oral contrast. Additionally, evaluation of the abdomen and pelvis is made difficult by a paucity of abdominopelvic fat with close apposition of bowel loops and other organs. 2. Thickening of the colonic wall centered at the splenic flexure and extending to involve the distal transverse colon and proximal descending colon. Note is made that a very similar appearance was seen of the colon in this region on the 04/08/2019 comparison. The etiology of this finding is nonspecific and could be related to a colitis though an ischemic etiology is not excluded. No pneumatosis or perforation. Recommend correlation for symptoms that would suggest mesenteric ischemia. Importantly, there is no calcific plaque seen at the origins of the celiac artery or SMA. 3. Unchanged mild urinary bladder wall thickening. No hydronephrosis, hydroureter or visualized nephrolithiasis. 4. Additional chronic findings as above. Electronically signed by: BECKY HERRERA MD (06/03/2019 5:26 PM) [facility] X: F EXAM STATUS: PRE ER ORD. PHYSICIAN: WENDY BROWN MD REASON: cough PROCEDURE: PORTABLE CHEST 1V AP portable chest 06/09/2019. Reason for exam: Cough. Comparison is made with a study of 06/03/2019. No infiltrate or effusion is seen. Heart size and pulmonary vascularity appear normal. Impression: No acute disease. Electronically signed by: Jaquan Garcia Jr., MD (06/09/2019 11:34 AM) [facility] VTE Prophylaxis Ordered VTE Prophylaxis Devices: No VTE Pharmacological Prophylaxi: Yes Assessment/Plan Assessment/Plan Impression: Cyclic vomiting syndrome ON RECENT CT Thickening of the colonic wall centered at the splenic flexure and extending to involve the distal transverse colon and proximal descending colon. Note is made that a very similar appearance was seen of the colon in this region on the 04/08/2019 comparison. The etiology of this finding is nonspecific and could be related to a colitis though an ischemic etiology is not excluded. No pneumatosis or perforation. Recommend correlation for symptoms that would suggest mesenteric ischemia. Hypertensive emergency THC ABUSE ALTERED MENTATION, ANXIETY HX POLYSUBSTANCE ABUSE HY[POKALEMIA ADMITTED NICARDIPINE DRIP, TITRATE BP CONTROL PROTOCOL PRN ATIVAN, HALDOL FOR AGITATION IV FLUID SUPPORT DVT PROPHYLAXIS ICU BED UDS GI CONSULT GI PROPHYLAXIS REPLETE K 44 MIN CC TIME ANN MARIE CAMARA MD Jun 09, 2019 14:30
[2019-06-09] MEDS: IV NORMAL SALINE 1000ML BAG 1,000 ML IV SCH (15:08)
[2019-06-09] MEDS ORDERED: ACETAMINOPHEN 325 MG TABLET. PO PRN (15:15)
[2019-06-09] MEDS ORDERED: PROCHLORPERAZINE 10 MG/2 ML VIAL. IV PRN (15:15)
[2019-06-09] MEDS ORDERED: BISACODYL 10 MG SUPP.RECT. PR PRN (15:15)
[2019-06-09] MEDS ORDERED: PROCHLORPERAZINE 25 MG SUPP.RECT. PR PRN (15:15)
[2019-06-09] MEDS ORDERED: CALCIUM CARBONATE 500 MG TAB.CHEW PO PRN (15:15)
[2019-06-09] MEDS ORDERED: niCARdipine 50 MG in IV NORMAL SALINE 250ML 250 ML IV PRN (15:15)
[2019-06-09] MEDS ORDERED: LORazepam 1 MG TABLET PO PRN ×3 (15:15→15:30)
[2019-06-09] MEDS ORDERED: ONDANSETRON PF 4 MG/2 ML VIAL. IV PRN (15:15)
[2019-06-09] MEDS ORDERED: 0.9 % SODIUM CHLORIDE 10 ML DISP.SYRIN. IV PRN (15:15)
[2019-06-09] MEDS ORDERED: HALOPERIDOL LACTATE 5 MG/ML VIAL. IVP PRN (15:30)
[2019-06-09] MEDS ORDERED: POTASSIUM CHLORIDE 20 MEQ TABLET.ER. PO ONE ×2 (15:30)
[2019-06-09] MEDS ORDERED: diphenhydrAMINE 50 MG/ML VIAL IVP PRN (15:30)
[2019-06-09] MEDS ORDERED: cloNIDine HCL 0.1 MG TABLET PO PRN (15:30)
[2019-06-09 15:45] LABS: BARBITURATES NEG (NEG); BENZODIAZEPINES NEG (NEG); CANNABINOIDS NEG (NEG); COCAINE NEG (NEG); METHADONE NEG (NEG); OPIATES NEG (NEG); PHENCYCLIDINE NEG (NEG)
[2019-06-09 15:47] LABS: AMPHETAMINE/METHAMPHETAMINE NEG (NEG)
[2019-06-09] MEDS: MULTIVIT INFUSN,ADULT 4,VIT K 10 ML, THIAMINE INJ 100 MG, FOLIC ACID INJ 1 MG in IV NOR... IV SCH (16:11)
[2019-06-09] MEDS: HEPARIN for SUB-Q USE 5,000 UNIT/ML VIAL. SQ SCH ×2 (16:52→21:22)
[2019-06-09] MEDS: POTASSIUM CHLORIDE 10MEQ 100 ML IV SCH ×4 (17:36→21:19)
[2019-06-09] MEDS: DOCUSATE SODIUM 100 MG CAPSULE. PO SCH (21:19)
[2019-06-09] MEDS: SENNOSIDES/DOCUSATE 8.6/50MG TABLET. PO SCH (21:19)
[2019-06-09] MEDS: FAMOTIDINE 20 MG/2 ML VIAL IVP SCH (21:19)
[2019-06-09] MEDS: HYDROcodone/APAP 7.5/325MG 1 TAB TABLET PO PRN (21:53)
[2019-06-10] VITALS (17 sets, daily range): BP systolic 93–170; BP diastolic 74–108
[2019-06-10] MEDS: IV NORMAL SALINE 1000ML BAG 1,000 ML IV SCH ×3 (01:08→21:28)
[2019-06-10 04:44] LABS: BASO # 0.1 x10^3/uL (0.0-0.2); BASO % 1 % (0-3); EOS % 0 % (0-3); HEMATOCRIT 42.6 % (36.0-47.0); HEMOGLOBIN 14.1 g/dL (12.0-15.5); LYMPH % 31 % (24-48); MEAN CORPUSCULAR HEMOGLOBIN 29 pg (25-35); MEAN CORPUSCULAR HGB CONC 33 g/dL (31-37); MEAN CORPUSCULAR VOLUME 87 fL (79-100); MONO # 0.8 x10^3/uL (0.0-1.1); MONO % 8 % (0-9); NEUT # 5.8 x10^3/uL (1.8-7.7); NEUT % 60 % (31-73); PLATELET COUNT 145 x10^3/uL (140-400); RED BLOOD COUNT 4.92 x10^6/uL (3.50-5.40); WHITE BLOOD COUNT 9.8 x10^3/uL (4.0-11.0)
[2019-06-10 05:06] LABS: ALBUMIN 3.5 g/dL (3.4-5.0); ALBUMIN/GLOBULIN RATIO 0.8 (1.0-1.7); CALCIUM 9.1 mg/dL (8.5-10.1); CREATININE 1.1 mg/dL (0.6-1.0); GFR 62.4; POTASSIUM 3.1 mmol/L (3.5-5.1); TOTAL BILIRUBIN 0.9 mg/dL (0.2-1.0); TOTAL PROTEIN 7.8 g/dL (6.4-8.2)
[2019-06-10] MEDS: HEPARIN for SUB-Q USE 5,000 UNIT/ML VIAL. SQ SCH ×4 (06:00→21:32)
--- NOTE | 2019-06-10 06:22 | EKG ---
[facility] [address] [place] [address] Test Date: 2019-06-09 Test Time: 12:05:12 Pat Name: DANIELA MANUEL Department: Room: Gender: F [employer]: : 1965 Requested By: WENDY BROWN Order Number: [id number] Reading MD: Measurements Intervals [place] Rate: 97 P: 64 VA: 146 QRS: 56 QRSD: 78 T: 57 QT: 348 QTc: 446 Interpretive Statements SINUS RHYTHM LEFT ATRIAL ABNORMALITY QRS(T) CONTOUR ABNORMALITY CANNOT RULE OUT ANTEROLATERAL MYOCARDIAL DAMAGE ABNORMAL ECG No previous ECG available for comparison
[2019-06-10] MEDS: METOPROLOL TART IMMED RELEASE 25 MG TABLET. PO SCH ×2 (09:17→21:28)
[2019-06-10] MEDS: DOCUSATE SODIUM 100 MG CAPSULE. PO SCH ×2 (09:17→21:00)
[2019-06-10] MEDS: SENNOSIDES/DOCUSATE 8.6/50MG TABLET. PO SCH ×2 (09:17→21:00)
[2019-06-10] MEDS: FAMOTIDINE 20 MG/2 ML VIAL IVP SCH (09:17)
[2019-06-10] MEDS: MULTIVIT INFUSN,ADULT 4,VIT K 10 ML, THIAMINE INJ 100 MG, FOLIC ACID INJ 1 MG in IV NOR... IV SCH (09:18)
[2019-06-10] MEDS: HYDROcodone/APAP 7.5/325MG 1 TAB TABLET PO PRN ×3 (09:28→23:12)
[2019-06-10] MEDS ORDERED: POTASSIUM CHLORIDE 20 MEQ TABLET.ER. PO ONE (12:30)
--- NOTE | 2019-06-10 14:11 | PDOC ---
Subjective: Subjective: Please see GI consult from 06/04. Symptoms recurred last night - denies precipitating events. Feeling better now - eating some, not too hungry, no vomiting. Doesn't believe any bleeding this time. Objective: Vital Signs: Vital Signs Date Time Temp Pulse Resp B/P (MAP) Pulse Ox O2 Delivery O2 Flow Rate FiO2 06/10/19 12:00 Room Air 06/10/19 12:00 97.8 69 28 119/94 (102) 100 97.8 Labs: Laboratory Tests Test 06/09/19 16:57 06/10/19 04:20 Lactic Acid Level 2.0 mmol/L White Blood Count 9.8 x10^3/uL Red Blood Count 4.92 x10^6/uL Hemoglobin 14.1 g/dL Hematocrit 42.6 % Mean Corpuscular Volume 87 fL Mean Corpuscular Hemoglobin 29 pg Mean Corpuscular Hemoglobin Concent 33 g/dL Red Cell Distribution Width 15.0 % Platelet Count 145 x10^3/uL Neutrophils (%) (Auto) 60 % Lymphocytes (%) (Auto) 31 % Monocytes (%) (Auto) 8 % Eosinophils (%) (Auto) 0 % Basophils (%) (Auto) 1 % Neutrophils # (Auto) 5.8 x10^3/uL Lymphocytes # (Auto) 3.0 x10^3/uL Monocytes # (Auto) 0.8 x10^3/uL Eosinophils # (Auto) 0.0 x10^3/uL Basophils # (Auto) 0.1 x10^3/uL Sodium Level 140 mmol/L Potassium Level 3.1 mmol/L Chloride Level 101 mmol/L Carbon Dioxide Level 26 mmol/L Anion Gap 13 Blood Urea Nitrogen 17 mg/dL Creatinine 1.1 mg/dL Estimated GFR (Cockcroft-Gault) 62.4 BUN/Creatinine Ratio 15 Glucose Level 108 mg/dL Calcium Level 9.1 mg/dL Total Bilirubin 0.9 mg/dL Aspartate Amino Transf (AST/SGOT) 18 U/L Alanine Aminotransferase (ALT/SGPT) 14 U/L Alkaline Phosphatase 70 U/L Total Protein 7.8 g/dL Albumin 3.5 g/dL Albumin/Globulin Ratio 0.8 Imaging: CXR Impression: No acute disease. PE: GEN: NAD, sitting up in bed, half of lunch consumed LUNGS: CTAB HEART: RRR ABD: NABS, S/ND/NT NEURO/PSYCH: A & O �3 A/P: Recurrent n/v, abd pain, uncontrolled HTN - better Abnormal urine collections for metanephrines and VMA - concern for pheo or paraganglionoma Dental abscess -- Will discuss octreotide scan w/ nuc med - tracer must be ordered - she agrees to remain inpt this time. Unable to talk with anyone in nuc med currently - will try again. ANDRES HOFFMAN Jun 10, 2019 14:11
--- NOTE | 2019-06-10 16:08 | PDOC4 ---
OPERATIVE NOTE Date: Date: Jun 10, 2019 Pre-Op Diagnosis: COPD Severe HTN caries 22,23,24,25,26,27 Bilateral mandibular micky Post-Op Diagnosis: COPD Severe HTN caries 22,23,24,25,26,27 Bilateral mandibular micky Procedure Performed: extraction of all remaining teeth 22,23,24,25,26,27 removal of Bilateral mandibular micky Surgeon: iesha Anesthesia Type: m Blood Loss: 20 Specimans Obtained: teeth evaluated and disposed of in OR Findings: see dictation Complications: none Operative Note: see dictation EDGAR ROSA DMD Jun 10, 2019 16:08
--- NOTE | 2019-06-10 17:43 | PDOC ---
PROGRESS NOTES Chief Complaint Chief Complaint accelerated htn Cyclic vomiting syndrome Thickening of the colonic wall centered at the splenic flexure and extending to involve the distal transverse colon and proximal descending dental caries with abcess THC abuse anxiety, hypokalemia poor compliance History of Present Illness History of Present Illness off nicardipene gtt, vitals much better, she asked Dr. Esparza to be consulted, she has recent dental abcess diagnosis cont current transfer to floor discussed at length with GI consult, pt gets admitted about every week, has not had f/u of some prior tests Vitals Vitals Vital Signs Date Time Temp Pulse Resp B/P (MAP) Pulse Ox O2 Delivery O2 Flow Rate FiO2 06/10/19 15:38 24 100 Room Air 06/10/19 15:00 98.0 63 131/84 (100) 98.0 Physical Exam General: Alert, Oriented X3, Cooperative, No acute distress Heart: Regular rate Lungs: Clear Abdomen: Normal bowel sounds, Soft, Other (mild tender, ) Extremities: No cyanosis Skin: No rashes Labs LABS Laboratory Tests Test 06/10/19 04:20 White Blood Count 9.8 x10^3/uL (4.0-11.0) Red Blood Count 4.92 x10^6/uL (3.50-5.40) Hemoglobin 14.1 g/dL (12.0-15.5) Hematocrit 42.6 % (36.0-47.0) Mean Corpuscular Volume 87 fL (79-100) Mean Corpuscular Hemoglobin 29 pg (25-35) Mean Corpuscular Hemoglobin Concent 33 g/dL (31-37) Red Cell Distribution Width 15.0 % (11.5-14.5) Platelet Count 145 x10^3/uL (140-400) Neutrophils (%) (Auto) 60 % (31-73) Lymphocytes (%) (Auto) 31 % (24-48) Monocytes (%) (Auto) 8 % (0-9) Eosinophils (%) (Auto) 0 % (0-3) Basophils (%) (Auto) 1 % (0-3) Neutrophils # (Auto) 5.8 x10^3/uL (1.8-7.7) Lymphocytes # (Auto) 3.0 x10^3/uL (1.0-4.8) Monocytes # (Auto) 0.8 x10^3/uL (0.0-1.1) Eosinophils # (Auto) 0.0 x10^3/uL (0.0-0.7) Basophils # (Auto) 0.1 x10^3/uL (0.0-0.2) Sodium Level 140 mmol/L (136-145) Potassium Level 3.1 mmol/L (3.5-5.1) Chloride Level 101 mmol/L (98-107) Carbon Dioxide Level 26 mmol/L (21-32) Anion Gap 13 (6-14) Blood Urea Nitrogen 17 mg/dL (7-20) Creatinine 1.1 mg/dL (0.6-1.0) Estimated GFR (Cockcroft-Gault) 62.4 BUN/Creatinine Ratio 15 (6-20) Glucose Level 108 mg/dL (70-99) Calcium Level 9.1 mg/dL (8.5-10.1) Total Bilirubin 0.9 mg/dL (0.2-1.0) Aspartate Amino Transf (AST/SGOT) 18 U/L (15-37) Alanine Aminotransferase (ALT/SGPT) 14 U/L (14-59) Alkaline Phosphatase 70 U/L (46-116) Total Protein 7.8 g/dL (6.4-8.2) Albumin 3.5 g/dL (3.4-5.0) Albumin/Globulin Ratio 0.8 (1.0-1.7) Review of Systems Review of Systems nausea, poor po intake right tooth pain Assessment and Plan Assessmemt and Plan Problems Medical Problems: (1) Hypertensive urgency Status: Acute Comment Review of Relevant I have reviewed the following items starr (where applicable) has been applied. Labs Laboratory Tests Test 06/09/19 10:47 06/09/19 11:16 06/09/19 11:50 06/09/19 12:50 O2 Saturation 97 % (92-99) Arterial Blood pH 7.53 (7.35-7.45) Arterial Blood pCO2 at Patient Temp 31 mmHg (35-46) Arterial Blood pO2 at Patient Temp 82 mmHg (75-108) Arterial Blood HCO3 25 mmol/L (21-28) Arterial Blood Base Excess 3 mmol/L (-3-3) FiO2 21% on ra Urine Collection Type Unknown Urine Color Yellow Urine Clarity Clear Urine pH 8.0 Urine Specific [place] 1.010 Urine Protein Negative mg/dL (NEG-TRACE) Urine Glucose (UA) Negative mg/dL (NEG) Urine Ketones (Stick) Negative mg/dL (NEG) Urine Blood Trace (NEG) Urine Nitrite Negative (NEG) Urine Bilirubin Negative (NEG) Urine Urobilinogen Dipstick 0.2 mg/dL (0.2 mg/dL) Urine Leukocyte Esterase Negative (NEG) Urine RBC 3-5 /HPF (0-2) Urine WBC 0 /HPF (0-4) Urine Squamous Epithelial Cells Mod /LPF Urine Bacteria 0 /HPF (0-FEW) Urine Opiates Screen Neg (NEG) Urine Methadone Screen Neg (NEG) Urine Barbiturates Neg (NEG) Urine Phencyclidine Screen Neg (NEG) Urine Amphetamine/Methamphetamine Neg (NEG) Urine Benzodiazepines Screen Neg (NEG) Urine Cocaine Screen Neg (NEG) Urine Cannabinoids Screen Neg (NEG) Urine Ethyl Alcohol Neg (NEG) White Blood Count 6.8 x10^3/uL (4.0-11.0) Red Blood Count 5.65 x10^6/uL (3.50-5.40) Hemoglobin 16.2 g/dL (12.0-15.5) Hematocrit 49.4 % (36.0-47.0) Mean Corpuscular Volume 87 fL (79-100) Mean Corpuscular Hemoglobin 29 pg (25-35) Mean Corpuscular Hemoglobin Concent 33 g/dL (31-37) Red Cell Distribution Width 15.2 % (11.5-14.5) Platelet Count 170 x10^3/uL (140-400) Neutrophils (%) (Auto) 72 % (31-73) Lymphocytes (%) (Auto) 22 % (24-48) Monocytes (%) (Auto) 5 % (0-9) Eosinophils (%) (Auto) 0 % (0-3) Basophils (%) (Auto) 1 % (0-3) Neutrophils # (Auto) 4.9 x10^3/uL (1.8-7.7) Lymphocytes # (Auto) 1.5 x10^3/uL (1.0-4.8) Monocytes # (Auto) 0.4 x10^3/uL (0.0-1.1) Eosinophils # (Auto) 0.0 x10^3/uL (0.0-0.7) Basophils # (Auto) 0.0 x10^3/uL (0.0-0.2) Lactic Acid Level 3.4 mmol/L (0.4-2.0) Sodium Level 139 mmol/L (136-145) Potassium Level 3.1 mmol/L (3.5-5.1) Chloride Level 99 mmol/L (98-107) Carbon Dioxide Level 27 mmol/L (21-32) Anion Gap 13 (6-14) Blood Urea Nitrogen 14 mg/dL (7-20) Creatinine 0.9 mg/dL (0.6-1.0) Estimated GFR (Cockcroft-Gault) 78.7 BUN/Creatinine Ratio 16 (6-20) Glucose Level 118 mg/dL (70-99) Calcium Level 10.7 mg/dL (8.5-10.1) Total Bilirubin 1.1 mg/dL (0.2-1.0) Aspartate Amino Transf (AST/SGOT) 21 U/L (15-37) Alanine Aminotransferase (ALT/SGPT) 14 U/L (14-59) Alkaline Phosphatase 90 U/L (46-116) Troponin I Quantitative < 0.017 ng/mL (0.000-0.055) TX-Fou-T-Type Natriuretic Peptide 416 pg/mL (0-124) Total Protein 9.9 g/dL (6.4-8.2) Albumin 4.5 g/dL (3.4-5.0) Albumin/Globulin Ratio 0.8 (1.0-1.7) Lipase 67 U/L (73-393) Ethyl Alcohol Level < 10 mg/dL (0-10) Test 06/09/19 16:57 06/10/19 04:20 Lactic Acid Level 2.0 mmol/L (0.4-2.0) White Blood Count 9.8 x10^3/uL (4.0-11.0) Red Blood Count 4.92 x10^6/uL (3.50-5.40) Hemoglobin 14.1 g/dL (12.0-15.5) Hematocrit 42.6 % (36.0-47.0) Mean Corpuscular Volume 87 fL (79-100) Mean Corpuscular Hemoglobin 29 pg (25-35) Mean Corpuscular Hemoglobin Concent 33 g/dL (31-37) Red Cell Distribution Width 15.0 % (11.5-14.5) Platelet Count 145 x10^3/uL (140-400) Neutrophils (%) (Auto) 60 % (31-73) Lymphocytes (%) (Auto) 31 % (24-48) Monocytes (%) (Auto) 8 % (0-9) Eosinophils (%) (Auto) 0 % (0-3) Basophils (%) (Auto) 1 % (0-3) Neutrophils # (Auto) 5.8 x10^3/uL (1.8-7.7) Lymphocytes # (Auto) 3.0 x10^3/uL (1.0-4.8) Monocytes # (Auto) 0.8 x10^3/uL (0.0-1.1) Eosinophils # (Auto) 0.0 x10^3/uL (0.0-0.7) Basophils # (Auto) 0.1 x10^3/uL (0.0-0.2) Sodium Level 140 mmol/L (136-145) Potassium Level 3.1 mmol/L (3.5-5.1) Chloride Level 101 mmol/L (98-107) Carbon Dioxide Level 26 mmol/L (21-32) Anion Gap 13 (6-14) Blood Urea Nitrogen 17 mg/dL (7-20) Creatinine 1.1 mg/dL (0.6-1.0) Estimated GFR (Cockcroft-Gault) 62.4 BUN/Creatinine Ratio 15 (6-20) Glucose Level 108 mg/dL (70-99) Calcium Level 9.1 mg/dL (8.5-10.1) Total Bilirubin 0.9 mg/dL (0.2-1.0) Aspartate Amino Transf (AST/SGOT) 18 U/L (15-37) Alanine Aminotransferase (ALT/SGPT) 14 U/L (14-59) Alkaline Phosphatase 70 U/L (46-116) Total Protein 7.8 g/dL (6.4-8.2) Albumin 3.5 g/dL (3.4-5.0) Albumin/Globulin Ratio 0.8 (1.0-1.7) Laboratory Tests Test 06/10/19 04:20 White Blood Count 9.8 x10^3/uL (4.0-11.0) Red Blood Count 4.92 x10^6/uL (3.50-5.40) Hemoglobin 14.1 g/dL (12.0-15.5) Hematocrit 42.6 % (36.0-47.0) Mean Corpuscular Volume 87 fL (79-100) Mean Corpuscular Hemoglobin 29 pg (25-35) Mean Corpuscular Hemoglobin Concent 33 g/dL (31-37) Red Cell Distribution Width 15.0 % (11.5-14.5) Platelet Count 145 x10^3/uL (140-400) Neutrophils (%) (Auto) 60 % (31-73) Lymphocytes (%) (Auto) 31 % (24-48) Monocytes (%) (Auto) 8 % (0-9) Eosinophils (%) (Auto) 0 % (0-3) Basophils (%) (Auto) 1 % (0-3) Neutrophils # (Auto) 5.8 x10^3/uL (1.8-7.7) Lymphocytes # (Auto) 3.0 x10^3/uL (1.0-4.8) Monocytes # (Auto) 0.8 x10^3/uL (0.0-1.1) Eosinophils # (Auto) 0.0 x10^3/uL (0.0-0.7) Basophils # (Auto) 0.1 x10^3/uL (0.0-0.2) Sodium Level 140 mmol/L (136-145) Potassium Level 3.1 mmol/L (3.5-5.1) Chloride Level 101 mmol/L (98-107) Carbon Dioxide Level 26 mmol/L (21-32) Anion Gap 13 (6-14) Blood Urea Nitrogen 17 mg/dL (7-20) Creatinine 1.1 mg/dL (0.6-1.0) Estimated GFR (Cockcroft-Gault) 62.4 BUN/Creatinine Ratio 15 (6-20) Glucose Level 108 mg/dL (70-99) Calcium Level 9.1 mg/dL (8.5-10.1) Total Bilirubin 0.9 mg/dL (0.2-1.0) Aspartate Amino Transf (AST/SGOT) 18 U/L (15-37) Alanine Aminotransferase (ALT/SGPT) 14 U/L (14-59) Alkaline Phosphatase 70 U/L (46-116) Total Protein 7.8 g/dL (6.4-8.2) Albumin 3.5 g/dL (3.4-5.0) Albumin/Globulin Ratio 0.8 (1.0-1.7) Microbiology 06/09/19 Blood Culture - Preliminary, Resulted NO GROWTH AFTER 1 DAY Medications Current Medications Haloperidol Lactate (Haldol Inj) 2.5 mg 1X ONCE IVP Last administered on 06/09/19at 11:34; Start 06/09/19 at 11:00; Stop 06/09/19 at 11:01; Status DC Lorazepam (Ativan Inj) 1 mg 1X ONCE IV Last administered on 06/09/19at 11:34; Start 06/09/19 at 11:00; Stop 06/09/19 at 11:01; Status DC Sodium Chloride 1,000 ml @ 1,000 mls/hr Q1H IV Last administered on 06/09/19at 11:34; Start 06/09/19 at 10:47; Stop 06/09/19 at 11:46; Status DC Haloperidol Lactate (Haldol Inj) 2.5 mg 1X ONCE IVP Last administered on 06/09/19at 13:28; Start 06/09/19 at 13:15; Stop 06/09/19 at 13:21; Status DC Lorazepam (Ativan Inj) 1 mg 1X ONCE IV Last administered on 06/09/19at 13:28; Start 06/09/19 at 13:15; Stop 06/09/19 at 13:21; Status DC Labetalol HCl (Normodyne Iv Push) 20 mg 1X ONCE IVP Last administered on 06/09/19at 13:44; Start 06/09/19 at 13:15; Stop 06/09/19 at 13:21; Status DC Labetalol HCl (Normodyne Iv Push) 40 mg 1X ONCE IVP Last administered on 06/09/19at 14:38; Start 06/09/19 at 14:30; Stop 06/09/19 at 14:31; Status DC Sodium Chloride 1,000 ml @ 125 mls/hr 1X ONCE IV Last administered on 06/09/19at 14:58; Start 06/09/19 at 13:00; Stop 06/09/19 at 20:59; Status DC Nicardipine HCl 50 mg/Sodium Chloride 250 ml @ 25 mls/hr CONT PRN IV SEE I/O RECORD Last administered on 06/09/19at 15:34; Start 06/09/19 at 15:15 Acetaminophen (Tylenol) 650 mg PRN Q6HRS PRN PO Headaches, Temp > 101.5'; Start 06/09/19 at 15:15 Lorazepam (Ativan) 1 mg PRN Q6HRS PRN PO ANXIETY / AGITATION; Start 06/09/19 at 15:15 Ondansetron HCl (Zofran) 4 mg PRN Q6HRS PRN IV NAUSEA/VOMITING; Start 06/09/19 at 15:15 Prochlorperazine Edisylate (Compazine) 5 mg PRN Q6HRS PRN IV NAUSEA/VOMITING; Start 06/09/19 at 15:15 Prochlorperazine (Compazine) 25 mg PRN Q12HR PRN LA NAUSEA/VOMITING; Start 06/09/19 at 15:15 Calcium Carbonate/ Glycine (Tums) 500 mg PRN Q3HRS PRN PO HEARTBURN / GAS; Start 06/09/19 at 15:15 Famotidine (Pepcid Vial) 20 mg BID IVP Last administered on 06/10/19at 09:18; Start 06/09/19 at 21:00; Stop 06/10/19 at 14:12; Status DC Heparin Sodium (Porcine) (Heparin Sodium) 5,000 unit Q8HRS SQ Last administered on 06/10/19at 14:59; Start 06/09/19 at 15:30 Sodium Chloride (Normal Saline Flush) 3 ml QSHIFT PRN IV AFTER MEDS AND BLOOD DRAWS; Start 06/09/19 at 15:15 Sodium Chloride 1,000 ml @ 100 mls/hr Q10H IV Last administered on 06/10/19at 12:15; Start 06/09/19 at 15:08 Senna/Docusate Sodium (Senna Plus) 1 tab BID PO Last administered on 06/10/19at 09:18; Start 06/09/19 at 21:00 Docusate Sodium (Colace) 100 mg BID PO Last administered on 06/10/19at 09:18; Start 06/09/19 at 21:00 Bisacodyl (Dulcolax Supp) 10 mg PRN DAILY PRN LA CONSTIPATION; Start 06/09/19 at 15:15 Multivitamins 10 ml/Thiamine HCl 100 mg/Folic Acid 1 mg/Sodium Chloride 1,011.2 ml @ 100 mls/ hr DAILY IV Last administered on 06/10/19at 09:18; Start 06/09/19 at 15:30; Stop 06/13/19 at 19:07 Multivitamins (Thera M Plus) 1 tab DAILY PO ; Start 06/14/19 at 09:00 Folic Acid (Folic Acid) 1 mg DAILY PO ; Start 06/14/19 at 09:00 Thiamine HCl 100 mg DAILY IM ; Start 06/14/19 at 09:00; Stop 06/15/19 at 08:59 Lorazepam (Ativan) 4 mg PRN Q1HR PRN PO For CIWA 8-14; Start 06/09/19 at 15:30 Lorazepam (Ativan) 8 mg PRN Q1HR PRN PO For CIWA 15 or greater; Start 06/09/19 at 15:30 Lorazepam (Ativan Inj) 2 mg PRN Q1HR PRN IV For CIWA 8-14; Start 06/09/19 at 15:30 Lorazepam (Ativan Inj) 4 mg PRN Q1HR PRN IV For CIWA 15 or greater; Start 06/09/19 at 15:30 Haloperidol Lactate (Haldol Inj) 5 mg PRN Q4HRS PRN IVP Hallucinatns,Confusn,Delirium; Start 06/09/19 at 15:30 Diphenhydramine HCl (Benadryl) 25 mg PRN Q15MIN PRN IVP EPS symptoms 2'Haldol admin; Start 06/09/19 at 15:30 Clonidine HCl (Catapres) 0.1 mg PRN Q1HR PRN PO SBP > 180 or DBP > 100, MRX3; Start 06/09/19 at 15:30 Lorazepam (Ativan Inj) 2 mg PRN Q15MIN PRN IV SEE COMMENTS; Start 06/09/19 at 15:30 Lorazepam (Ativan Inj) 4 mg PRN Q15MIN PRN IV SEE COMMENTS; Start 06/09/19 at 15:30 Potassium Chloride (Klor-Con) 40 meq 1X ONCE PO ; Start 06/09/19 at 15:30; Stop 06/09/19 at 17:12; Status DC Potassium Chloride (Klor-Con) 20 meq 1X ONCE PO ; Start 06/09/19 at 15:30; Stop 06/09/19 at 17:12; Status DC Potassium Chloride/Water 100 ml @ 100 mls/hr Q1H IV Last administered on 06/09/19at 21:23; Start 06/09/19 at 18:00; Stop 06/09/19 at 21:59; Status DC Acetaminophen/ Hydrocodone Bitart (Lortab 7.5/325) 1 tab PRN Q4HRS PRN PO PAIN Last administered on 06/10/19at 09:28; Start 06/09/19 at 21:45 Metoprolol Tartrate (Lopressor) 25 mg BID PO Last administered on 06/10/19at 09:18; Start 06/10/19 at 09:00 Potassium Chloride (Klor-Con) 40 meq 1X ONCE PO Last administered on 06/10/19at 14:59; Start 06/10/19 at 12:30; Stop 06/10/19 at 12:31; Status DC Pantoprazole Sodium (Protonix) 40 mg DAILYAC PO ; Start 06/11/19 at 07:30 Nicotine (Nicoderm Cq 21mg) 1 patch DAILY TD ; Start 06/11/19 at 09:00 Active Scripts Active Pantoprazole Sodium (Pantoprazole Sodium) 40 Mg Tablet.dr 40 Mg PO DAILYAC Zofran (Ondansetron Hcl) 4 Mg Tablet 1 Tab PO Q6HRS Hydrocodone-Apap 5-325 (Hydrocodone Bit/Acetaminophen) 1 Tab Tablet 1 Tab PO PRN Q4HRS PRN Zofran Odt (Ondansetron) 4 Mg Tab.rapdis 1 Tab SL Q8HRS Reported Augmentin 875-125 Tablet (Amoxicillin/Potassium Clav) 1 Each Tablet 1 Tab PO BID 7 Days Ranitidine Hcl 150 Mg Capsule 1 Cap PO BID Cyclobenzaprine Hcl 10 Mg Tablet 1 Tab PO PRN TID PRN Amlodipine Besylate 10 Mg Tablet 10 Mg PO DAILY Gabapentin 300 Mg Capsule 300 Mg PO TID Vitals/I & O Vital Sign - Last 24 Hours 06/09/19 06/09/19 06/09/19 06/09/19 18:00 19:00 20:00 21:00 Temp 98.9 98.9 Pulse 130 109 113 108 Resp 16 20 16 22 B/P (MAP) 148/97 (114) 126/78 (94) 103/68 (80) 159/100 (119) Pulse Ox 100 100 100 97 O2 Delivery Room Air Room Air Room Air Room Air 06/09/19 06/09/19 06/09/19 06/09/19 21:53 22:00 22:56 23:00 Pulse 111 96 Resp 22 19 B/P (MAP) 117/86 (96) 111/69 (83) Pulse Ox 99 100 97 98 O2 Delivery Room Air Room Air Room Air Room Air 06/10/19 06/10/19 06/10/19 06/10/19 00:00 01:00 02:00 03:00 Temp 98.6 98.6 Pulse 94 90 85 80 Resp 16 19 13 15 B/P (MAP) 106/74 (85) 100/77 (85) 93/74 (80) 121/97 (105) Pulse Ox 99 100 99 99 O2 Delivery Room Air Room Air Room Air Room Air 06/10/19 06/10/19 06/10/19 06/10/19 04:00 05:00 06:00 07:00 Temp 99.0 99.0 Pulse 82 98 81 84 Resp 20 18 18 32 B/P (MAP) 103/74 (84) 113/79 (90) 139/93 (108) 170/108 (128) Pulse Ox 99 100 99 100 O2 Delivery Room Air Room Air Room Air Room Air 06/10/19 06/10/19 06/10/19 06/10/19 08:00 08:00 09:00 09:18 Temp 98.0 98.0 Pulse 85 74 82 Resp 22 30 B/P (MAP) 135/92 (106) 114/87 (96) 167/101 Pulse Ox 100 100 O2 Delivery Room Air Room Air Room Air 06/10/19 06/10/19 06/10/19 06/10/19 09:28 10:00 11:00 12:00 Temp 97.8 97.8 Pulse 74 69 69 Resp 28 30 24 28 B/P (MAP) 128/82 (97) 118/81 (93) 119/94 (102) Pulse Ox 100 100 100 100 O2 Delivery Room Air Room Air Room Air Room Air 06/10/19 06/10/19 06/10/19 12:00 15:00 15:38 Temp 98.0 98.0 Pulse 63 Resp 20 24 B/P (MAP) 131/84 (100) Pulse Ox 100 100 O2 Delivery Room Air Room Air Room Air Intake and Output 06/09/19 06/09/19 06/10/19 14:59 22:59 06:59 Intake Total 1000 ml 510 ml 1981.3 ml Output Total 310 ml 590 ml Balance 1000 ml 200 ml 1391.3 ml Nutrition Consultation Dietary Evaluation: Recommendations by RD: Protein supplementation Comments: Continue w/regular diet as ordered, honor food preferences, and provide snacks as requested REC Ensure w/dinner (any flavor) Expected Outcomes/Goals: PO intake to meet >75% est needs Interpretation of weight loss: >10% in 6 months Malnutrition Findings: Weight Status: Underweight BENJAMÍN DOBBINS MD Jun 10, 2019 17:43
[2019-06-10] MEDS: NICOTINE 21MG PATCH. TD SCH (18:03)
[2019-06-11 03:43] VITALS: BP 154/95
[2019-06-11] MEDS: HYDROcodone/APAP 7.5/325MG 1 TAB TABLET PO PRN ×4 (05:37→20:56)
[2019-06-11] MEDS: IV NORMAL SALINE 1000ML BAG 1,000 ML IV SCH ×2 (05:38→17:54)
[2019-06-11] MEDS: HEPARIN for SUB-Q USE 5,000 UNIT/ML VIAL. SQ SCH ×3 (05:41→20:58)
[2019-06-11 07:00] VITALS: BP 136/108
--- NOTE | 2019-06-11 09:59 | PDOC ---
Subjective: Subjective: Not too hungry - no nausea, did drink Ensure, just doesn't want breakfast. Little abd pain - thinks related to catheter. Objective: Vital Signs: Vital Signs Date Time Temp Pulse Resp B/P (MAP) Pulse Ox O2 Delivery O2 Flow Rate FiO2 06/11/19 07:00 98.4 74 18 136/108 (117) 98 Room Air 98.4 PE: GEN: NAD LUNGS: CTAB HEART: RRR ABD: NABS, S/ND/NT NEURO/PSYCH: A & O �3 A/P: Recurrent n/v, abd pain, uncontrolled HTN - concern for pheo or paraganglionoma -- D/w nuc med this morning - apparently isotope must be ordered by but can only be delivered on Monday or Monday. Will continue to discuss. ANDRES HOFFMAN Jun 11, 2019 09:59
[2019-06-11] MEDS: NICOTINE 21MG PATCH. TD SCH (10:02)
[2019-06-11] MEDS: DOCUSATE SODIUM 100 MG CAPSULE. PO SCH ×2 (10:02→20:55)
[2019-06-11] MEDS: METOPROLOL TART IMMED RELEASE 25 MG TABLET. PO SCH ×2 (10:03→20:55)
[2019-06-11] MEDS: SENNOSIDES/DOCUSATE 8.6/50MG TABLET. PO SCH ×2 (10:03→20:56)
[2019-06-11] MEDS: PANTOPRAZOLE 40 MG TABLET.DR. PO SCH (10:03)
[2019-06-11] MEDS: MULTIVIT INFUSN,ADULT 4,VIT K 10 ML, THIAMINE INJ 100 MG, FOLIC ACID INJ 1 MG in IV NOR... IV SCH (10:03)
[2019-06-11 10:52] VITALS: BP 145/96
--- NOTE | 2019-06-11 11:47 | PDOC ---
PROGRESS NOTES Chief Complaint Chief Complaint accelerated htn Cyclic vomiting syndrome Thickening of the colonic wall centered at the splenic flexure and extending to involve the distal transverse colon and proximal descending dental caries with abcess THC abuse anxiety, hypokalemia poor compliance dental tooth extraction 06/10 History of Present Illness History of Present Illness BP better, off cardene drip continue current meds no further vomitting planning for octreotide scan GI following Vitals Vitals Vital Signs Date Time Temp Pulse Resp B/P (MAP) Pulse Ox O2 Delivery O2 Flow Rate FiO2 06/11/19 10:52 98.2 83 18 145/96 (112) 100 Room Air 98.2 Physical Exam General: Alert, Oriented X3, Cooperative, No acute distress Heart: Regular rate Lungs: Clear Abdomen: Normal bowel sounds, Soft, Other (mild tender, ) Extremities: No cyanosis Skin: No rashes Assessment and Plan Assessmemt and Plan Problems Medical Problems: (1) Hypertensive urgency Status: Acute Comment Review of Relevant I have reviewed the following items starr (where applicable) has been applied. Labs Laboratory Tests Test 06/09/19 11:50 06/09/19 12:50 06/09/19 16:57 06/10/19 04:20 White Blood Count 6.8 x10^3/uL (4.0-11.0) 9.8 x10^3/uL (4.0-11.0) Red Blood Count 5.65 x10^6/uL (3.50-5.40) 4.92 x10^6/uL (3.50-5.40) Hemoglobin 16.2 g/dL (12.0-15.5) 14.1 g/dL (12.0-15.5) Hematocrit 49.4 % (36.0-47.0) 42.6 % (36.0-47.0) Mean Corpuscular Volume 87 fL (79-100) 87 fL (79-100) Mean Corpuscular Hemoglobin 29 pg (25-35) 29 pg (25-35) Mean Corpuscular Hemoglobin Concent 33 g/dL (31-37) 33 g/dL (31-37) Red Cell Distribution Width 15.2 % (11.5-14.5) 15.0 % (11.5-14.5) Platelet Count 170 x10^3/uL (140-400) 145 x10^3/uL (140-400) Neutrophils (%) (Auto) 72 % (31-73) 60 % (31-73) Lymphocytes (%) (Auto) 22 % (24-48) 31 % (24-48) Monocytes (%) (Auto) 5 % (0-9) 8 % (0-9) Eosinophils (%) (Auto) 0 % (0-3) 0 % (0-3) Basophils (%) (Auto) 1 % (0-3) 1 % (0-3) Neutrophils # (Auto) 4.9 x10^3/uL (1.8-7.7) 5.8 x10^3/uL (1.8-7.7) Lymphocytes # (Auto) 1.5 x10^3/uL (1.0-4.8) 3.0 x10^3/uL (1.0-4.8) Monocytes # (Auto) 0.4 x10^3/uL (0.0-1.1) 0.8 x10^3/uL (0.0-1.1) Eosinophils # (Auto) 0.0 x10^3/uL (0.0-0.7) 0.0 x10^3/uL (0.0-0.7) Basophils # (Auto) 0.0 x10^3/uL (0.0-0.2) 0.1 x10^3/uL (0.0-0.2) Lactic Acid Level 3.4 mmol/L (0.4-2.0) 2.0 mmol/L (0.4-2.0) Sodium Level 139 mmol/L (136-145) 140 mmol/L (136-145) Potassium Level 3.1 mmol/L (3.5-5.1) 3.1 mmol/L (3.5-5.1) Chloride Level 99 mmol/L (98-107) 101 mmol/L (98-107) Carbon Dioxide Level 27 mmol/L (21-32) 26 mmol/L (21-32) Anion Gap 13 (6-14) 13 (6-14) Blood Urea Nitrogen 14 mg/dL (7-20) 17 mg/dL (7-20) Creatinine 0.9 mg/dL (0.6-1.0) 1.1 mg/dL (0.6-1.0) Estimated GFR (Cockcroft-Gault) 78.7 62.4 BUN/Creatinine Ratio 16 (6-20) 15 (6-20) Glucose Level 118 mg/dL (70-99) 108 mg/dL (70-99) Calcium Level 10.7 mg/dL (8.5-10.1) 9.1 mg/dL (8.5-10.1) Total Bilirubin 1.1 mg/dL (0.2-1.0) 0.9 mg/dL (0.2-1.0) Aspartate Amino Transf (AST/SGOT) 21 U/L (15-37) 18 U/L (15-37) Alanine Aminotransferase (ALT/SGPT) 14 U/L (14-59) 14 U/L (14-59) Alkaline Phosphatase 90 U/L (46-116) 70 U/L (46-116) Troponin I Quantitative < 0.017 ng/mL (0.000-0.055) FO-Adn-X-Type Natriuretic Peptide 416 pg/mL (0-124) Total Protein 9.9 g/dL (6.4-8.2) 7.8 g/dL (6.4-8.2) Albumin 4.5 g/dL (3.4-5.0) 3.5 g/dL (3.4-5.0) Albumin/Globulin Ratio 0.8 (1.0-1.7) 0.8 (1.0-1.7) Lipase 67 U/L (73-393) Ethyl Alcohol Level < 10 mg/dL (0-10) Microbiology 06/09/19 Blood Culture - Preliminary, Resulted NO GROWTH AFTER 1 DAY Medications Current Medications Haloperidol Lactate (Haldol Inj) 2.5 mg 1X ONCE IVP Last administered on 06/09/19at 11:34; Start 06/09/19 at 11:00; Stop 06/09/19 at 11:01; Status DC Lorazepam (Ativan Inj) 1 mg 1X ONCE IV Last administered on 06/09/19at 11:34; Start 06/09/19 at 11:00; Stop 06/09/19 at 11:01; Status DC Sodium Chloride 1,000 ml @ 1,000 mls/hr Q1H IV Last administered on 06/09/19at 11:34; Start 06/09/19 at 10:47; Stop 06/09/19 at 11:46; Status DC Haloperidol Lactate (Haldol Inj) 2.5 mg 1X ONCE IVP Last administered on 06/09/19at 13:28; Start 06/09/19 at 13:15; Stop 06/09/19 at 13:21; Status DC Lorazepam (Ativan Inj) 1 mg 1X ONCE IV Last administered on 06/09/19at 13:28; Start 06/09/19 at 13:15; Stop 06/09/19 at 13:21; Status DC Labetalol HCl (Normodyne Iv Push) 20 mg 1X ONCE IVP Last administered on 06/09/19at 13:44; Start 06/09/19 at 13:15; Stop 06/09/19 at 13:21; Status DC Labetalol HCl (Normodyne Iv Push) 40 mg 1X ONCE IVP Last administered on 06/09/19at 14:38; Start 06/09/19 at 14:30; Stop 06/09/19 at 14:31; Status DC Sodium Chloride 1,000 ml @ 125 mls/hr 1X ONCE IV Last administered on 06/09/19at 14:58; Start 06/09/19 at 13:00; Stop 06/09/19 at 20:59; Status DC Nicardipine HCl 50 mg/Sodium Chloride 250 ml @ 25 mls/hr CONT PRN IV SEE I/O RECORD Last administered on 06/09/19at 15:34; Start 06/09/19 at 15:15 Acetaminophen (Tylenol) 650 mg PRN Q6HRS PRN PO Headaches, Temp > 101.5'; Start 06/09/19 at 15:15 Lorazepam (Ativan) 1 mg PRN Q6HRS PRN PO ANXIETY / AGITATION; Start 06/09/19 at 15:15 Ondansetron HCl (Zofran) 4 mg PRN Q6HRS PRN IV NAUSEA/VOMITING; Start 06/09/19 at 15:15 Prochlorperazine Edisylate (Compazine) 5 mg PRN Q6HRS PRN IV NAUSEA/VOMITING; Start 06/09/19 at 15:15 Prochlorperazine (Compazine) 25 mg PRN Q12HR PRN NM NAUSEA/VOMITING; Start 06/09/19 at 15:15 Calcium Carbonate/ Glycine (Tums) 500 mg PRN Q3HRS PRN PO HEARTBURN / GAS; Start 06/09/19 at 15:15 Famotidine (Pepcid Vial) 20 mg BID IVP Last administered on 06/10/19at 09:18; Start 06/09/19 at 21:00; Stop 06/10/19 at 14:12; Status DC Heparin Sodium (Porcine) (Heparin Sodium) 5,000 unit Q8HRS SQ Last administered on 06/11/19at 05:41; Start 06/09/19 at 15:30 Sodium Chloride (Normal Saline Flush) 3 ml QSHIFT PRN IV AFTER MEDS AND BLOOD DRAWS; Start 06/09/19 at 15:15 Sodium Chloride 1,000 ml @ 100 mls/hr Q10H IV Last administered on 06/11/19at 05:41; Start 06/09/19 at 15:08 Senna/Docusate Sodium (Senna Plus) 1 tab BID PO Last administered on 06/11/19at 10:03; Start 06/09/19 at 21:00 Docusate Sodium (Colace) 100 mg BID PO Last administered on 06/11/19at 10:03; Start 06/09/19 at 21:00 Bisacodyl (Dulcolax Supp) 10 mg PRN DAILY PRN [place] CONSTIPATION; Start 06/09/19 at 15:15 Multivitamins 10 ml/Thiamine HCl 100 mg/Folic Acid 1 mg/Sodium Chloride 1,011.2 ml @ 100 mls/ hr DAILY IV Last administered on 06/11/19at 10:03; Start 06/09/19 at 15:30; Stop 06/13/19 at 19:07 Multivitamins (Thera M Plus) 1 tab DAILY PO ; Start 06/14/19 at 09:00 Folic Acid (Folic Acid) 1 mg DAILY PO ; Start 06/14/19 at 09:00 Thiamine HCl 100 mg DAILY IM ; Start 06/14/19 at 09:00; Stop 06/15/19 at 08:59 Lorazepam (Ativan) 4 mg PRN Q1HR PRN PO For CIWA 8-14; Start 06/09/19 at 15:30 Lorazepam (Ativan) 8 mg PRN Q1HR PRN PO For CIWA 15 or greater; Start 06/09/19 at 15:30 Lorazepam (Ativan Inj) 2 mg PRN Q1HR PRN IV For CIWA 8-14; Start 06/09/19 at 15:30 Lorazepam (Ativan Inj) 4 mg PRN Q1HR PRN IV For CIWA 15 or greater; Start 06/09/19 at 15:30 Haloperidol Lactate (Haldol Inj) 5 mg PRN Q4HRS PRN IVP Hallucinatns,Confusn,Delirium; Start 06/09/19 at 15:30 Diphenhydramine HCl (Benadryl) 25 mg PRN Q15MIN PRN IVP EPS symptoms 2'Haldol admin; Start 06/09/19 at 15:30 Clonidine HCl (Catapres) 0.1 mg PRN Q1HR PRN PO SBP > 180 or DBP > 100, MRX3; Start 06/09/19 at 15:30 Lorazepam (Ativan Inj) 2 mg PRN Q15MIN PRN IV SEE COMMENTS; Start 06/09/19 at 15:30 Lorazepam (Ativan Inj) 4 mg PRN Q15MIN PRN IV SEE COMMENTS; Start 06/09/19 at 15:30 Potassium Chloride (Klor-Con) 40 meq 1X ONCE PO ; Start 06/09/19 at 15:30; Stop 06/09/19 at 17:12; Status DC Potassium Chloride (Klor-Con) 20 meq 1X ONCE PO ; Start 06/09/19 at 15:30; Stop 06/09/19 at 17:12; Status DC Potassium Chloride/Water 100 ml @ 100 mls/hr Q1H IV Last administered on 06/09at 21:23; Start 06/09/19 at 18:00; Stop 06/09/19 at 21:59; Status DC Acetaminophen/ Hydrocodone Bitart (Lortab 7.5/325) 1 tab PRN Q4HRS PRN PO PAIN Last administered on 06/11/19at 10:03; Start 06/09/19 at 21:45 Metoprolol Tartrate (Lopressor) 25 mg BID PO Last administered on 06/11/19at 10:03; Start 06/10/19 at 09:00 Potassium Chloride (Klor-Con) 40 meq 1X ONCE PO Last administered on 06/10/19at 14:59; Start 06/10/19 at 12:30; Stop 06/10/19 at 12:31; Status DC Pantoprazole Sodium (Protonix) 40 mg DAILYAC PO Last administered on 06/11/19at 10:03; Start 06/11/19 at 07:30 Nicotine (Nicoderm Cq 21mg) 1 patch DAILY TD Last administered on 06/11/19at 10:03; Start 06/10/19 at 17:57 Active Scripts Active Pantoprazole Sodium (Pantoprazole Sodium) 40 Mg Tablet.dr 40 Mg PO DAILYAC Zofran (Ondansetron Hcl) 4 Mg Tablet 1 Tab PO Q6HRS Hydrocodone-Apap 5-325 (Hydrocodone Bit/Acetaminophen) 1 Tab Tablet 1 Tab PO PRN Q4HRS PRN Zofran Odt (Ondansetron) 4 Mg Tab.rapdis 1 Tab SL Q8HRS Reported Augmentin 875-125 Tablet (Amoxicillin/Potassium Clav) 1 Each Tablet 1 Tab PO BID 7 Days Ranitidine Hcl 150 Mg Capsule 1 Cap PO BID Cyclobenzaprine Hcl 10 Mg Tablet 1 Tab PO PRN TID PRN Amlodipine Besylate 10 Mg Tablet 10 Mg PO DAILY Gabapentin 300 Mg Capsule 300 Mg PO TID Vitals/I & O Vital Sign - Last 24 Hours 06/10/19 06/10/19 06/10/19 06/10/19 12:00 12:00 15:00 15:38 Temp 97.8 98.0 97.8 98.0 Pulse 69 63 Resp 28 20 24 B/P (MAP) 119/94 (102) 131/84 (100) Pulse Ox 100 100 100 O2 Delivery Room Air Room Air Room Air Room Air 06/10/19 06/10/19 06/10/19 06/10/19 16:45 17:51 19:27 19:49 Temp 98.4 98.3 98.4 98.3 Pulse 67 74 Resp 20 17 18 B/P (MAP) 135/97 (110) 131/85 (100) Pulse Ox 98 98 100 O2 Delivery Room Air Room Air Room Air Room Air 06/10/19 06/10/19 06/10/19 06/10/19 20:05 21:33 23:05 23:13 Temp 98.3 98.3 Pulse 74 68 Resp 19 B/P (MAP) 131/85 152/96 (114) Pulse Ox 100 O2 Delivery Room Air Room Air Room Air 06/11/19 06/11/19 06/11/19 06/11/19 01:00 03:43 07:00 10:01 Temp 98.6 98.4 98.6 98.4 Pulse 69 74 Resp 18 18 17 B/P (MAP) 154/95 (114) 136/108 (117) Pulse Ox 100 98 O2 Delivery Room Air Room Air Room Air Room Air 06/11/19 06/11/19 06/11/19 10:03 10:03 10:52 Temp 98.2 98.2 Pulse 74 83 Resp 16 18 B/P (MAP) 136/108 145/96 (112) Pulse Ox 100 O2 Delivery Room Air Room Air Intake and Output 06/10/19 06/10/19 06/11/19 14:59 22:59 06:59 Intake Total 960 ml 180 ml 350 ml Output Total 565 ml 1000 ml 1000 ml Balance 395 ml -820 ml -650 ml Nutrition Consultation Dietary Evaluation: Recommendations by RD: Protein supplementation Comments: Continue w/regular diet as ordered, honor food preferences, and provide snacks as requested REC Ensure w/dinner (any flavor) Expected Outcomes/Goals: PO intake to meet >75% est needs Interpretation of weight loss: >10% in 6 months Malnutrition Findings: Weight Status: Underweight ROD GIBBS MD Jun 11, 2019 11:47
[2019-06-11 14:43] VITALS: BP 148/109
[2019-06-11] MEDS: MORPHINE SULFATE 2 MG/ML VIAL. IV PRN (17:54)
[2019-06-11 19:40] VITALS: BP 150/93
[2019-06-11 23:43] VITALS: BP 130/92
[2019-06-12] MEDS: IV NORMAL SALINE 1000ML BAG 1,000 ML IV SCH ×2 (03:08→13:08)
[2019-06-12 03:45] VITALS: BP 136/96
[2019-06-12] MEDS: HYDROcodone/APAP 7.5/325MG 1 TAB TABLET PO PRN ×2 (05:57→16:09)
[2019-06-12] MEDS: HEPARIN for SUB-Q USE 5,000 UNIT/ML VIAL. SQ SCH ×2 (06:01→14:00)
[2019-06-12 07:00] VITALS: BP 141/88
[2019-06-12] MEDS: SENNOSIDES/DOCUSATE 8.6/50MG TABLET. PO SCH (08:20)
[2019-06-12] MEDS: PANTOPRAZOLE 40 MG TABLET.DR. PO SCH (08:20)
[2019-06-12] MEDS: METOPROLOL TART IMMED RELEASE 25 MG TABLET. PO SCH (08:20)
[2019-06-12] MEDS: NICOTINE 21MG PATCH. TD SCH (08:20)
[2019-06-12] MEDS: DOCUSATE SODIUM 100 MG CAPSULE. PO SCH (08:21)
[2019-06-12] MEDS: MULTIVIT INFUSN,ADULT 4,VIT K 10 ML, THIAMINE INJ 100 MG, FOLIC ACID INJ 1 MG in IV NOR... IV SCH (08:21)
[2019-06-12] MEDS: MORPHINE SULFATE 2 MG/ML VIAL. IV PRN (08:40)
[2019-06-12 10:48] VITALS: BP 132/88
--- NOTE | 2019-06-12 12:43 | PDOC ---
Subjective: Subjective: Ate okay today, had some abd burning yesterday. Objective: Objective: D/w nursing - seems hospitalist on board w/ her remaining inpt for octreotide scan. Reviewed other notes. 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 Mccarty. ANDRES HOFFMAN Jun 12, 2019 12:42
[2019-06-12 15:00] VITALS: BP 152/116
--- NOTE | 2019-06-12 17:40 | PDOC ---
PROGRESS NOTES Chief Complaint Chief Complaint accelerated htn Cyclic vomiting syndrome Thickening of the colonic wall centered at the splenic flexure and extending to involve the distal transverse colon and proximal descending dental caries with abcess THC abuse anxiety, hypokalemia poor compliance dental tooth extraction 06/10 History of Present Illness History of Present Illness BP better, off cardene drip continue current meds no further vomiting planning for octreotide scan per GI GI following Vitals Vitals Vital Signs Date Time Temp Pulse Resp B/P (MAP) Pulse Ox O2 Delivery O2 Flow Rate FiO2 06/12/19 16:09 20 Room Air 06/12/19 15:00 98.3 87 152/116 (128) 100 98.3 Physical Exam General: Alert, Oriented X3, Cooperative, No acute distress Heart: Regular rate Lungs: Clear Abdomen: Normal bowel sounds, Soft, Other (mild tender, ) Extremities: No cyanosis Skin: No rashes Assessment and Plan Assessmemt and Plan Problems Medical Problems: (1) Hypertensive urgency Status: Acute Comment Review of Relevant I have reviewed the following items starr (where applicable) has been applied. Labs Microbiology 06/10/19 Urine Culture - Final, Complete 06/10/19 Urine Culture Result 1 (LUIS FERNANDO) - Final, Complete 06/09/19 Blood Culture - Preliminary, Resulted NO GROWTH AFTER 3 DAYS Medications Current Medications Haloperidol Lactate (Haldol Inj) 2.5 mg 1X ONCE IVP Last administered on 06/09/19 11:34; Start 06/09/19 at 11:00; Stop 06/09/19 at 11:01; Status DC Lorazepam (Ativan Inj) 1 mg 1X ONCE IV Last administered on 06/09/19at 11:34; Start 06/09/19 at 11:00; Stop 06/09/19 at 11:01; Status DC Sodium Chloride 1,000 ml @ 1,000 mls/hr Q1H IV Last administered on 06/09/19 11:34; Start 06/09/19 at 10:47; Stop 06/09/19 at 11:46; Status DC Haloperidol Lactate (Haldol Inj) 2.5 mg 1X ONCE IVP Last administered on 06/09/19at 13:28; Start 06/09/19 at 13:15; Stop 06/09/19 at 13:21; Status DC Lorazepam (Ativan Inj) 1 mg 1X ONCE IV Last administered on 06/09/19at 13:28; Start 06/09/19 at 13:15; Stop 06/09/19 at 13:21; Status DC Labetalol HCl (Normodyne Iv Push) 20 mg 1X ONCE IVP Last administered on 06/09/19at 13:44; Start 06/09/19 at 13:15; Stop 06/09/19 at 13:21; Status DC Labetalol HCl (Normodyne Iv Push) 40 mg 1X ONCE IVP Last administered on 06/09/19at 14:38; Start 06/09/19 at 14:30; Stop 06/09/19 at 14:31; Status DC Sodium Chloride 1,000 ml @ 125 mls/hr 1X ONCE IV Last administered on 06/09/19at 14:58; Start 06/09/19 at 13:00; Stop 06/09/19 at 20:59; Status DC Nicardipine HCl 50 mg/Sodium Chloride 250 ml @ 25 mls/hr CONT PRN IV SEE I/O RECORD Last administered on 06/09/19at 15:34; Start 06/09/19 at 15:15 Acetaminophen (Tylenol) 650 mg PRN Q6HRS PRN PO Headaches, Temp > 101.5'; Start 06/09/19 at 15:15 Lorazepam (Ativan) 1 mg PRN Q6HRS PRN PO ANXIETY / AGITATION; Start 06/09/19 at 15:15 Ondansetron HCl (Zofran) 4 mg PRN Q6HRS PRN IV NAUSEA/VOMITING, 1ST CHOICE; Start 06/09/19 at 15:15 Prochlorperazine Edisylate (Compazine) 5 mg PRN Q6HRS PRN IV NAUSEA/VOMITING, 2ND CHOICE; Start 06/09/19 at 15:15 Prochlorperazine (Compazine) 25 mg PRN Q12HR PRN ND NAUSEA/VOMITING; Start 06/09/19 at 15:15 Calcium Carbonate/ Glycine (Tums) 500 mg PRN Q3HRS PRN PO HEARTBURN / GAS; Start 06/09/19 at 15:15 Famotidine (Pepcid Vial) 20 mg BID IVP Last administered on 06/10/19at 09:18; Start 06/09/19 at 21:00; Stop 06/10/19 at 14:12; Status DC Heparin Sodium (Porcine) (Heparin Sodium) 5,000 unit Q8HRS SQ Last administered on 06/12/19at 06:02; Start 06/09/19 at 15:30 Sodium Chloride (Normal Saline Flush) 3 ml QSHIFT PRN IV AFTER MEDS AND BLOOD DRAWS; Start 06/09/19 at 15:15 Sodium Chloride 1,000 ml @ 100 mls/hr Q10H IV Last administered on 06/11/19at 17:54; Start 06/09/19 at 15:08 Senna/Docusate Sodium (Senna Plus) 1 tab BID PO Last administered on 06/12/19at 08:21; Start 06/09/19 at 21:00 Docusate Sodium (Colace) 100 mg BID PO Last administered on 06/12/19at 08:21; Start 06/09/19 at 21:00 Bisacodyl (Dulcolax Supp) 10 mg PRN DAILY PRN [place] CONSTIPATION; Start 06/09/19 at 15:15 Multivitamins 10 ml/Thiamine HCl 100 mg/Folic Acid 1 mg/Sodium Chloride 1,011.2 ml @ 100 mls/ hr DAILY IV Last administered on 06/12/19at 08:21; Start 06/09/19 at 15:30; Stop 06/13/19 at 19:07 Multivitamins (Thera M Plus) 1 tab DAILY PO ; Start 06/14/19 at 09:00 Folic Acid (Folic Acid) 1 mg DAILY PO ; Start 06/14/19 at 09:00 Thiamine HCl 100 mg DAILY IM ; Start 06/14/19 at 09:00; Stop 06/15/19 at 08:59 Lorazepam (Ativan) 4 mg PRN Q1HR PRN PO For CIWA 8-14; Start 06/09/19 at 15:30 Lorazepam (Ativan) 8 mg PRN Q1HR PRN PO For CIWA 15 or greater; Start 06/09/19 at 15:30 Lorazepam (Ativan Inj) 2 mg PRN Q1HR PRN IV For CIWA 8-14; Start 06/09/19 at 15:30 Lorazepam (Ativan Inj) 4 mg PRN Q1HR PRN IV For CIWA 15 or greater; Start 06/09/19 at 15:30 Haloperidol Lactate (Haldol Inj) 5 mg PRN Q4HRS PRN IVP Hallu cinatns,Confusn,Delirium; Start 06/09/19 at 15:30 Diphenhydramine HCl (Benadryl) 25 mg PRN Q15MIN PRN IVP EPS symptoms 2'Haldol admin; Start 06/09/19 at 15:30 Clonidine HCl (Catapres) 0.1 mg PRN Q1HR PRN PO SBP > 180 or DBP > 100, MRX3 Last administered on 06/11/19at 14:28; Start 06/09/19 at 15:30 Lorazepam (Ativan Inj) 2 mg PRN Q15MIN PRN IV SEE COMMENTS; Start 06/09/19 at 15:30 Lorazepam (Ativan Inj) 4 mg PRN Q15MIN PRN IV SEE COMMENTS; Start 06/09/19 at 15:30 Potassium Chloride (Klor-Con) 40 meq 1X ONCE PO ; Start 06/09/19 at 15:30; Stop 06/09/19 at 17:12; Status DC Potassium Chloride (Klor-Con) 20 meq 1X ONCE PO ; Start 06/09/19 at 15:30; Stop 06/09/19 at 17:12; Status DC Potassium Chloride/Water 100 ml @ 100 mls/hr Q1H IV Last administered on at 21:23; Start 06/09/19 at 18:00; Stop 06/09/19 at 21:59; Status DC Acetaminophen/ Hydrocodone Bitart (Lortab 7.5/325) 1 tab PRN Q4HRS PRN PO PAIN Last administered on 06/12/19at 16:09; Start 06/09/19 at 21:45 Metoprolol Tartrate (Lopressor) 25 mg BID PO Last administered on 06/12/19at 08:21; Start 06/10/19 at 09:00 Potassium Chloride (Klor-Con) 40 meq 1X ONCE PO Last administered on 06/10/19at 14:59; Start 06/10/19 at 12:30; Stop 06/10/19 at 12:31; Status DC Pantoprazole Sodium (Protonix) 40 mg DAILYAC PO Last administered on 06/12/19at 08:21; Start 06/11/19 at 07:30 Nicotine (Nicoderm Cq 21mg) 1 patch DAILY TD Last administered on 06/12/19at 08:21; Start 06/10/19 at 17:57 Morphine Sulfate (Morphine Sulfate) 2 mg PRN Q4HRS PRN IV PAIN Last admini stered on 06/12/19at 08:40; Start 06/11/19 at 17:45 Active Scripts Active Pantoprazole Sodium (Pantoprazole Sodium) 40 Mg Tablet.dr 40 Mg PO DAILYAC Zofran (Ondansetron Hcl) 4 Mg Tablet 1 Tab PO Q6HRS Hydrocodone-Apap 5-325 (Hydrocodone Bit/Acetaminophen) 1 Tab Tablet 1 Tab PO PRN Q4HRS PRN Zofran Odt (Ondansetron) 4 Mg Tab.rapdis 1 Tab SL Q8HRS Reported Augmentin 875-125 Tablet (Amoxicillin/Potassium Clav) 1 Each Tablet 1 Tab PO BID 7 Days Ranitidine Hcl 150 Mg Capsule 1 Cap PO BID Cyclobenzaprine Hcl 10 Mg Tablet 1 Tab PO PRN TID PRN Amlodipine Besylate 10 Mg Tablet 10 Mg PO DAILY Gabapentin 300 Mg Capsule 300 Mg PO TID Vitals/I & O Vital Sign - Last 24 Hours 06/11/19 06/11/19 06/11/19 06/11/19 17:55 18:25 19:40 20:00 Temp 98.7 98.7 Pulse 66 Resp 16 17 20 B/P (MAP) 150/93 (112) Pulse Ox 100 O2 Delivery Room Air Room Air Room Air Room Air 06/11/19 06/11/19 06/11/19 06/12/19 20:58 20:58 23:43 03:45 Temp 98.0 98.5 98.0 98.5 Pulse 66 56 56 Resp 18 20 20 B/P (MAP) 150/93 130/92 (105) 136/96 (109) Pulse Ox 97 96 O2 Delivery Room Air Room Air Room Air 06/12/19 06/12/19 06/12/19 06/12/19 06:02 07:00 07:56 08:00 Temp 98.8 98.8 Pulse 60 Resp 18 16 B/P (MAP) 141/88 (105) Pulse Ox 100 100 O2 Delivery Room Air Room Air Room Air Room Air 06/12/19 06/12/19 06/12/19 06/12/19 08:21 08:40 09:56 10:48 Temp 98.8 98.8 Pulse 60 54 B/P (MAP) 141/88 132/88 (103) Pulse Ox 100 100 100 O2 Delivery Room Air Room Air Room Air 06/12/19 06/12/19 15:00 16:09 Temp 98.3 98.3 Pulse 87 Resp 21 20 B/P (MAP) 152/116 (128) Pulse Ox 100 O2 Delivery Room Air Room Air Intake and Output 06/11/19 06/11/19 06/12/19 15:00 23:00 07:00 Intake Total 300 ml 500 ml 1272 ml Output Total 1300 ml Balance -1000 ml 500 ml 1272 ml Nutrition Consultation Dietary Evaluation: Recommendations by RD: Protein supplementation Comments: Continue w/regular diet as ordered, honor food preferences, and provide snacks as requested REC Ensure w/dinner (any flavor) Expected Outcomes/Goals: PO intake to meet >75% est needs Interpretation of weight loss: >10% in 6 months Malnutrition Findings: Weight Status: Underweight ROD GIBBS MD Jun 12, 2019 17:40
[2019-06-14] MEDS ORDERED: FOLIC ACID 1 MG TABLET. PO SCH (09:00)
[2019-06-14] MEDS ORDERED: MULTIVITAMIN with MINERAL TABLET. PO SCH (09:00)
[2019-06-14] MEDS ORDERED: THIAMINE IM 200 MG/2 ML VIAL. IM SCH (09:00)
== END 2019-06-12 17:00 | disposition left against medical advice (07) | DRG 392 ==
LOC: ER 10:18 → 1 WEST ICU 14:25 → 6 SOUTH 06-10 16:59 → 5 SOUTH 06-12 13:07
PROVIDERS: ADMIT Family Medicine; ATTEND Family Medicine
PROC: 0CDXXZ1 Extraction of Lower Tooth, Multiple, External Approach (ICD-10-PCS; principal; 2019-06-10)
DX: K31.89 Other diseases of stomach and duodenum (principal); I16.1 Hypertensive emergency; K02.9 Dental caries, unspecified; I10 Essential (primary) hypertension; F41.9 Anxiety disorder, unspecified; Z88.0 Allergy status to penicillin; R11.10 Vomiting, unspecified; K21.9 Gastro-esophageal reflux disease without esophagitis; M06.9 Rheumatoid arthritis, unspecified; F17.210 Nicotine dependence, cigarettes, uncomplicated; E78.5 Hyperlipidemia, unspecified; F12.10 Cannabis abuse, uncomplicated; E87.6 Hypokalemia; J44.9 Chronic obstructive pulmonary disease, unspecified; M27.0 Developmental disorders of jaws; Z87.11 Personal history of peptic ulcer disease; Z82.49 Family history of ischemic heart disease and other diseases of the circulatory system; Z81.8 Family history of other mental and behavioral disorders; Z83.3 Family history of diabetes mellitus; R63.6 Underweight; Z68.21 Body mass index [BMI] 21.0-21.9, adult
CPT/HCPCS: 36415; 36600; 71045; 80053; 80307; 81001; 82805; 83605; 83690; 83880; 84484; 85025; 87040; 87086; 93005; 96365; 96375; 96376; G0480; J1630; J1644; J2060; J2270; J3480; J3490; J7030; J7050; 92610; 99285-25; G0378

== ENCOUNTER 2019-07-02 15:17 | Inpatient (IN) | payer SELFPAY ==
[2019-07-02] VITALS (7 sets, daily range): BP systolic 97–114; BP diastolic 64–85
[~2019-07-02] VITALS: Ht 170.2 cm; Wt 53.5 kg
[2019-07-02 16:06] LABS: BILIRUBIN,URINE NEGATIVE (NEG); CLARITY,URINE CLOUDY; COLOR,URINE YELLOW; NITRITE,URINE NEGATIVE (NEG); PROTEIN,URINE 100 mg/dL (NEG-TRACE); UROBILINOGEN,URINE 0.2 mg/dL (0.2 mg/dL)
[2019-07-02] MEDS ORDERED: MORPHINE SULFATE 4 MG/ML VIAL. IV ONE (16:15)
[2019-07-02] MEDS ORDERED: IV NORMAL SALINE 1000ML BAG 1,000 ML IV ONE (16:15)
[2019-07-02] MEDS ORDERED: PANTOPRAZOLE IV PUSH 40 MG VIAL. IVP ONE (16:15)
[2019-07-02] MEDS ORDERED: ONDANSETRON PF 4 MG/2 ML VIAL. IV ONE (16:15)
[2019-07-02 16:16] LABS: BACTERIA,URINE 0 /HPF (0-FEW); SQUAMOUS EPITHELIAL CELL,UR OCC /LPF
[2019-07-02] MEDS ORDERED: hydrALAZINE 20 MG/ML VIAL. IVP ONE (16:30)
--- NOTE | 2019-07-02 16:32 | PHYS DOC ---
Past Medical History Past Medical History: Hypertension, Other Additional Past Medical Histor: stomach ulcers Past Surgical History: No Surgical History Additional Past Surgical Histo: foot surgery, explor. abd sx Alcohol Use: None Drug Use: None Adult General Chief Complaint Chief Complaint: HEMATEMESIS/VOMITING BLOOD HPI HPI Patient is a 54 year old AA female who presents to the emergency Department today with complaints of blood in her vomit today. Patient states she has had at least 10 or more episodes of vomiting today. She has a history of chronic abdominal pain that she currently rates a 10 out of 10 on the pain scale. Patient also reports a history of hypertension and peptic ulcer disease. She states she was unable to keep her medications down this morning. Patient reports that she was admitted to the hospital 2 weeks ago for the same symptoms. She denies any alleviating or exacerbating factors to her abdominal pain. Review of Systems Review of Systems Constitutional: Denies fever or chills [] Eyes: Denies redness, or eye pain [] HENT: Denies nasal congestion or sore throat [] Respiratory: Denies cough or shortness of breath [] Cardiovascular: No additional information not addressed in HPI [] GI: Denies bloody stools or diarrhea; see HPI : Denies dysuria or hematuria [] Musculoskeletal: Denies back pain or joint pain [] Integument: Denies rash or skin lesions [] Neurologic: Denies headache Complete systems were reviewed and found to be within normal limits, except as documented in this note. Current Medications Current Medications Current Medications Medications (Trade) Dose Ordered Sig/Emile Start Time Stop Time Status Last Admin Dose Admin Morphine Sulfate (Morphine Sulfate) 4 mg 1X ONCE 07/02/19 16:15 07/02/19 16:20 DC 07/02/19 16:28 4 MG Ondansetron HCl (Zofran) 4 mg 1X ONCE 07/02/19 16:15 07/02/19 16:20 DC 07/02/19 16:28 4 MG Pantoprazole Sodium (PROTONIX VIAL for IV PUSH) 40 mg 1X ONCE 07/02/19 16:15 07/02/19 16:20 DC 07/02/19 16:27 40 MG Pantoprazole Sodium 80 mg/ Sodium Chloride 100 ml @ 10 mls/hr Q10H PRN 07/02/19 16:15 07/02/19 17:36 10 MLS/HR Sodium Chloride 1,000 ml @ 1,000 mls/hr 1X ONCE 07/02/19 16:15 07/02/19 17:14 DC 07/02/19 16:27 1,000 MLS/HR Allergies Allergies Allergies Coded Allergies Type Severity Reaction Last Updated Verified Penicillins Allergy Intermediate HAS TOLERATED AMOXICILLIN 06/04/19 Yes Physical Exam Physical Exam Constitutional: Well developed, well nourished, moderate distress, non-toxic appearance. [] HENT: Normocephalic, atraumatic, bilateral external ears normal, oropharynx moist, no oral exudates, nose normal. [] Eyes: PERRLA, EOMI, conjunctiva normal, no discharge. [] Neck: Normal range of motion, no stridor. [] Cardiovascular Heart rate regular rhythm, no murmur [] Lungs & Thorax: Bilateral breath sounds clear to auscultation [] Abdomen: Bowel sounds normal, soft, diffuse tenderness to palpations in all quadrants, no rebound tenderness, no guarding, no masses, no pulsatile masses; coffee ground emesis present in emesis basin at bedside Skin: Warm, dry, no erythema, no rash. [] Back: No tenderness Extremities: No cyanosis, no clubbing, ROM intact, no edema. [] Neurologic: Alert and oriented X 3, no focal deficits noted. [] Psychologic: Affect normal, judgement normal, mood agitated Current Patient Data Vital Signs Vital Signs Date Time Temp Pulse Resp B/P (MAP) Pulse Ox O2 Delivery O2 Flow Rate FiO2 07/02/19 16:28 20 100 Room Air 07/02/19 15:54 98.4 96 202/138 (159) 98.4 Lab Values Laboratory Tests Test 07/02/19 15:28 Urine Color Yellow Urine Clarity Cloudy Urine pH 8.0 Urine Specific [place] 1.010 Urine Protein 100 mg/dL (NEG-TRACE) Urine Glucose (UA) 100 mg/dL (NEG) Urine Ketones (Stick) Negative mg/dL (NEG) Urine Blood Small (NEG) Urine Nitrite Negative (NEG) Urine Bilirubin Negative (NEG) Urine Urobilinogen Dipstick 0.2 mg/dL (0.2 mg/dL) Urine Leukocyte Esterase Negative (NEG) Urine RBC 3-5 /HPF (0-2) Urine WBC 1-4 /HPF (0-4) Urine Squamous Epithelial Cells Occ /LPF Urine Bacteria 0 /HPF (0-FEW) Urine Mucus Mod /LPF EKG EKG [] Radiology/Procedures Radiology/Procedures [] Course & Med Decision Making Course & Med Decision Making Pertinent Labs and Imaging studies reviewed. (See chart for details) dx: hematemesis, hypertension, intractable abdominal pain CBC: WBC 15, CMP: K 3.1, Personnel Records Clerk 1.2, glucose 188. calcium 11.2, Mg 1.6; UA 3-5 RBC. 1-4 WBC Pt was given 40 mg of protonix and a protonix drip was initiated in the ER. PT was also given 1L NS 4 mg of morphine, and 4 mg of zofran in the ER. 10 mg of hydralazine was also ordered. 1628- Spoke with Dr. Diaz who is the admitting physician, and care was assumed following discussion of patient. Dr. Diaz ordered a dose of labetalol. Patient's vital signs stable with hypertension noted. Patient remains afebrile, appears nontoxic, respirations even and unlabored. Patient will be admitted to the med/surg floor. Patient's case and plan of care also discussed with Dr. Leslie [] Tila Disclaimer Tila Disclaimer This electronic medical record was generated, in whole or in part, using a voice recognition dictation system. Departure Departure Impression: Primary Impression: Hematemesis Additional Impressions: Intractable abdominal pain Essential hypertension Disposition: 09 ADMITTED INPATIENT Admitting Physician: HOLLY (Joe) Condition: STABLE Referrals: NO PCP (PCP) Problem Qualifiers Primary Impression: Hematemesis Nausea presence: with nausea Qualified Codes: K92.0 - Hematemesis MATTHEW RENTERIA JAW SKINNER Jul 02, 2019 16:32
[2019-07-02 16:38] LABS: BASO # 0.1 x10^3/uL (0.0-0.2); BASO % 1 % (0-3); EOS % 0 % (0-3); HEMOGLOBIN 15.7 g/dL (12.0-15.5); LYMPH # 1.5 x10^3/uL (1.0-4.8); LYMPH % 10 % (24-48); MEAN CORPUSCULAR HEMOGLOBIN 29 pg (25-35); MEAN CORPUSCULAR HGB CONC 33 g/dL (31-37); MEAN CORPUSCULAR VOLUME 86 fL (79-100); MONO # 0.8 x10^3/uL (0.0-1.1); MONO % 6 % (0-9); NEUT # 12.6 x10^3/uL (1.8-7.7); NEUT % 84 % (31-73); PLATELET COUNT 224 x10^3/uL (140-400); RED CELL DISTRIBUTION WIDTH 15.1 % (11.5-14.5)
--- NOTE | 2019-07-02 16:44 | PDOC1 ---
History and Physical Date of Admission Date of Admission DATE: 07/02/19 TIME: 16:42 Identification/Chief Complaint Chief Complaint Hematemesis Source Source: Patient History of Present Illness History of Present Illness Ms Rajput is a 54yo F w/ PMHx Anxiety, Depression, GERD, High Cholesterol, Hypertension, PUD, Gastroparesis who presents to the ED today complaining of 10 out of 10 mid abdominal pain with vomiting of that began at 6 AM this morning, though she notes she vomited yesterday as well and now it is grossly bloody. Patient denies any diarrhea. Denies any fever. She does note some confusion. Denies any urgency frequency dysuria. She does note calf pain and cramping that began this afternoon. Patient arrived in the ED requesting we put an IV in right away and give her something for pain and vomiting. She was writhing around the bed. Hemoglobin 15.7, Potassium of 3.1, patient was unable to take oral potassium replacement and mag level returned 1.6. Calcium 11.2. prominent T waves but no STEMI was identified normal sinus rhythm rate of 80 QTC 456 Blood pressure 224/134 over to the ED with a heart rate of 84. Patient has history of uncontrolled hypertension. Given labetalol IV, hydralazine IV, clonidine by mouth. Blood pressure 233/156. Given cardene gtt with some improvement. Called for admission for intractable nausea/vomiting and HTN emergency. Past Medical History Cardiovascular: HTN, Hyperlipidemia Pulmonary: No pertinent hx GI: GERD, Other Hepatobiliary: No pertinent hx Psych: Anxiety, Depression Rheumatologic: Rheumatoid arthritis Infectious disease: No pertinent hx Renal/: No pertinent hx Endocrine: No pertinent hx Past Surgical History Past Surgical History: Other Family History Family History: Diabetes, Heart Disease Social History ALCOHOL: none Drugs: Marijuana Current Problem List Problem List Problems Medical Problems: (1) Essential hypertension Status: Acute (2) Hematemesis Status: Acute (3) Intractable abdominal pain Status: Acute Current Medications Current Medications Current Medications Sodium Chloride 1,000 ml @ 1,000 mls/hr 1X ONCE IV Last administered on 07/02/19at 16:27; Start 07/02/19 at 16:15; Stop 07/02/19 at 17:14 Ondansetron HCl (Zofran) 4 mg 1X ONCE IV Last administered on 07/02/19at 16:28; Start 07/02/19 at 16:15; Stop 07/02/19 at 16:20; Status DC Morphine Sulfate (Morphine Sulfate) 4 mg 1X ONCE IV Last administered on 07/02/19at 16:28; Start 07/02/19 at 16:15; Stop 07/02/19 at 16:20; Status DC Pantoprazole Sodium (PROTONIX VIAL for IV PUSH) 40 mg 1X ONCE IVP Last administered on 07/02/19at 16:27; Start 07/02/19 at 16:15; Stop 07/02/19 at 16:20; Status DC Pantoprazole Sodium 80 mg/ Sodium Chloride 100 ml @ 10 mls/hr Q10H PRN IV .; Start 07/02/19 at 16:15 Hydralazine HCl (Apresoline Inj) 10 mg 1X ONCE IVP ; Start 07/02/19 at 16:30; Stop 07/02/19 at 16:32; Status DC Active Scripts Active Pantoprazole Sodium (Pantoprazole Sodium) 40 Mg Tablet.dr 40 Mg PO DAILYAC Zofran (Ondansetron Hcl) 4 Mg Tablet 1 Tab PO Q6HRS Hydrocodone-Apap 5-325 (Hydrocodone Bit/Acetaminophen) 1 Tab Tablet 1 Tab PO PRN Q4HRS PRN Zofran Odt (Ondansetron) 4 Mg Tab.rapdis 1 Tab SL Q8HRS Reported Augmentin 875-125 Tablet (Amoxicillin/Potassium Clav) 1 Each Tablet 1 Tab PO BID 7 Days Ranitidine Hcl 150 Mg Capsule 1 Cap PO BID Cyclobenzaprine Hcl 10 Mg Tablet 1 Tab PO PRN TID PRN Amlodipine Besylate 10 Mg Tablet 10 Mg PO DAILY Gabapentin 300 Mg Capsule 300 Mg PO TID Allergies Allergies: Coded Allergies: Penicillins (Verified Allergy, Intermediate, HAS TOLERATED AMOXICILLIN, 06/04/19) Vitals Vitals Vital Signs Date Time Temp Pulse Resp B/P (MAP) Pulse Ox O2 Delivery O2 Flow Rate FiO2 07/02/19 16:28 20 100 Room Air 07/02/19 15:54 98.4 96 202/138 (159) 98.4 Labs Labs Laboratory Tests Test 07/02/19 15:28 Urine Color Yellow Urine Clarity Cloudy Urine pH 8.0 Urine Specific [place] 1.010 Urine Protein 100 mg/dL (NEG-TRACE) Urine Glucose (UA) 100 mg/dL (NEG) Urine Ketones (Stick) Negative mg/dL (NEG) Urine Blood Small (NEG) Urine Nitrite Negative (NEG) Urine Bilirubin Negative (NEG) Urine Urobilinogen Dipstick 0.2 mg/dL (0.2 mg/dL) Urine Leukocyte Esterase Negative (NEG) Urine RBC 3-5 /HPF (0-2) Urine WBC 1-4 /HPF (0-4) Urine Squamous Epithelial Cells Occ /LPF Urine Bacteria 0 /HPF (0-FEW) Urine Mucus Mod /LPF Laboratory Tests Test 07/02/19 15:28 Urine Color Yellow Urine Clarity Cloudy Urine pH 8.0 Urine Specific [place] 1.010 Urine Protein 100 mg/dL (NEG-TRACE) Urine Glucose (UA) 100 mg/dL (NEG) Urine Ketones (Stick) Negative mg/dL (NEG) Urine Blood Small (NEG) Urine Nitrite Negative (NEG) Urine Bilirubin Negative (NEG) Urine Urobilinogen Dipstick 0.2 mg/dL (0.2 mg/dL) Urine Leukocyte Esterase Negative (NEG) Urine RBC 3-5 /HPF (0-2) Urine WBC 1-4 /HPF (0-4) Urine Squamous Epithelial Cells Occ /LPF Urine Bacteria 0 /HPF (0-FEW) Urine Mucus Mod /LPF VTE Prophylaxis Ordered VTE Prophylaxis Devices: Yes VTE Pharmacological Prophylaxi: Yes Assessment/Plan Assessment/Plan A/P: Hypertensive emergency - admit to telemetry, Labetalol prn Acute encephalopathy - she is aware she is confused, no focal neuro deficits. With her BP coming down she feels improved. Acute abdominal pain - uncertain etiology, known well to GI service, will consult Nausea and vomiting - intractable, will keep meds IV, zofran, compazine until able to take PO Hypokalemia - replace IV and po, check mag. Hypomagnesemia - will replace in AM Dehydration - from pain and nausea and poor PO intake, , IV fluid Hypercalcemia - 10.2 will give IVF. Monitor, check phos, vitamin D levels, pth Hyperglycemia - will monitor Leukocytosis - likely from vomiting and element of hemoconcentration FEN - General diet PPX - GI Bleed FULL CODE Inpatient CVC for hypertensive emergency, likely 2 midnights. REGULO CUEVA MD Jul 02, 2019 16:44
[2019-07-02] MEDS ORDERED: fentaNYL PF VIAL 100 MCG/2 ML VIAL IVP ONE (16:45)
[2019-07-02] MEDS ORDERED: LABETALOL 20 MG/4 ML DISP.SYRIN. IVP ONE (16:45)
[2019-07-02 16:46] LABS: CALCIUM 11.2 mg/dL (8.5-10.1); CREATININE 1.2 mg/dL (0.6-1.0); GFR 56.4; POTASSIUM 3.1 mmol/L (3.5-5.1)
[2019-07-02 16:51] LABS: ALBUMIN 4.8 g/dL (3.4-5.0); ALBUMIN/GLOBULIN RATIO 0.9 (1.0-1.7); MAGNESIUM 1.6 mg/dL (1.8-2.4); TOTAL PROTEIN 10.3 g/dL (6.4-8.2)
[2019-07-02] MEDS ORDERED: ONDANSETRON PF 4 MG/2 ML VIAL. IV PRN (17:30)
[2019-07-02] MEDS: PANTOPRAZOLE SODIUM IV DRIP 80 MG in IV NORMAL SALINE 100ML 100 ML IV PRN (17:36)
[2019-07-02 19:08] LABS: % BASOS 1 % (0-3); % LYMPHS 13 % (24-48); % MONOS 7 % (0-10); % SEGS 79 % (35-66)
[2019-07-02 19:09] LABS: ANISOCYTOSIS SLIGHT; PLT ESTIMATE ADEQUATE (ADEQUATE); POLYCHROMASIA SLIGHT
[2019-07-02 19:10] LABS: SCHISTOCYTES OCC
[2019-07-02] MEDS: MORPHINE SULFATE 4 MG/ML VIAL. IV PRN ×2 (21:08→23:59)
[2019-07-02] MEDS ORDERED: CYCLOBENZAPRINE 10 MG TABLET. PO PRN (21:30)
[2019-07-02] MEDS ORDERED: MAGNESIUM SULFATE 4GM 100 ML IV ONE (21:30)
--- NOTE | 2019-07-02 21:30 | NUR ---
Patient admitted to room 103 from ER. Patient walked from cart to bed with supervision and steady but weak gait. Monitor on. SR/ST noted. Patient on RA. Cardene gtt infusing into R wrist PIV, titrating for SBP less than 170 and DBP less than 100. Full assessment charted. Morphine per PRN order given for ABD pain. Patient denies any nausea. Call light within reach. Will continue to monitor.
[2019-07-02] MEDS ORDERED: ONDANSETRON ODT 4 MG TAB.RAPDIS. PO PRN (22:00)
[2019-07-02] MEDS: POTASSIUM CHLORIDE 10MEQ 100 ML IV SCH (23:59)
[2019-07-03] VITALS (14 sets, daily range): BP systolic 101–152; BP diastolic 69–102
[2019-07-03] MEDS: POTASSIUM CHLORIDE 10MEQ 100 ML IV SCH ×2 (00:01→01:11)
[2019-07-03] MEDS: MORPHINE SULFATE 4 MG/ML VIAL. IV PRN ×4 (01:12→08:27)
--- NOTE | 2019-07-03 08:15 | NUR ---
SS following for discharge planning. SS reviewed pt chart. Pt is self pay pt. HCFS following for self pay status. Pt is from home and is currently on room air. SS will continue to follow for discharge planning.
[2019-07-03] MEDS: GABAPENTIN 300 MG CAPSULE. PO SCH ×3 (08:26→20:32)
[2019-07-03] MEDS: amLODIPine BESYLATE 10 MG TABLET PO SCH (08:27)
[2019-07-03] MEDS: PANTOPRAZOLE SODIUM IV DRIP 80 MG in IV NORMAL SALINE 100ML 100 ML IV PRN (09:13)
[2019-07-03 09:20] LABS: HEMATOCRIT 46.7 % (36.0-47.0); HEMOGLOBIN 15.3 g/dL (12.0-15.5); RED BLOOD COUNT 5.39 x10^6/uL (3.50-5.40); RED CELL DISTRIBUTION WIDTH 15.7 % (11.5-14.5); WHITE BLOOD COUNT 13.4 x10^3/uL (4.0-11.0)
[2019-07-03 09:33] LABS: CALCIUM 10.4 mg/dL (8.5-10.1); CREATININE 1.6 mg/dL (0.6-1.0); GFR 40.5; MAGNESIUM 3.5 mg/dL (1.8-2.4); POTASSIUM 4.1 mmol/L (3.5-5.1)
--- NOTE | 2019-07-03 10:44 | NUR ---
Order received to transfer patient to [facility], Consult GI-- from Dr. Veloz. Patient has left AMA multiple admissions prior to this one.
[2019-07-03] MEDS: HYDROcodone/APAP 5/325MG 1 TAB TABLET PO PRN ×3 (10:54→20:32)
[2019-07-03] MEDS: NICOTINE 21MG PATCH. TD SCH (11:31)
[2019-07-03] MEDS: LIDOCAINE (700MG/PATCH) PATCH. TD SCH (11:31)
--- NOTE | 2019-07-03 12:07 | PDOC2 ---
GI CONSULT Reason For Consult: GI Bleed HPI: HPI: 54 y/o female who we have seen many times - admitted about once monthly recently. Again presented to ER w/ abd pain, vomiting and concern for bleeding ("hematemesis"), and noted w/ significantly elevated blood pressure - all her typical symptoms, all resolved quickly per usual. Reportedly taking pantoprazole QD and Reglan TID. ?still taking hydrocodone Has denies NSAIDs in the past. Previously reviewed records from [facility]. Has had several EGDs there - never w/ ulcer, initially +H. pylori and then negative (after treatment), gastritis and duodenitis noted (most recently 09/2018). Also two recent colonoscopies - first w/ ischemic colitis, second normal. GES normal here in 03/2019 (T1/2 53 min). Normal GB on US in 05/2019. Elevated Cortisol in 03/2019. No liver or pancreas history. 6 CTs here since 2015. In March, abnormal urine collection w/ elevated VMA 24 hr and normetanephrine. Last admission, attempted to set up octreotide scan - had permission from administration to [facility] and return the following week as outpt. Then she left AMA so tracer was not ordered w/ nuc med and scan was not scheduled. PMH: PMH: HTN, GERD, H. pylori (treated), ischemic colitis, depression, RA right ankle ORIF, exploatory abdominal surgery (@ [facility]) FH: Family History: CAD, DM, Hypertension Social History: ALCOHOL: none Drugs: Marijuana (tox screens negative recently) ROS: GEN: Denies fevers, chills, sweats HEENT: Denies blurred vision, sore throat CV: Denies chest pain RESP: Denies shortness of air, cough GI: Per HPI : Denies hematuria, dysuria ENDO: Denies weight changes NEURO: Denies confusion, dizziness MSK: Denies weakness, joint pain/swelling SKIN: Denies jaundice, pruritus Vitals: Vitals: Vital Signs Date Time Temp Pulse Resp B/P (MAP) Pulse Ox O2 Delivery O2 Flow Rate FiO2 07/03/19 10:54 97 Room Air 07/03/19 09:00 82 12 109/78 (88) 07/03/19 08:00 97.9 97.9 Labs: Labs: Laboratory Tests Test 07/02/19 15:28 07/02/19 16:30 10/16/19 09:10 Urine Color Yellow Urine Clarity Cloudy Urine pH 8.0 Urine Specific [place] 1.010 Urine Protein 100 mg/dL (NEG-TRACE) Urine Glucose (UA) 100 mg/dL (NEG) Urine Ketones (Stick) Negative mg/dL (NEG) Urine Blood Small (NEG) Urine Nitrite Negative (NEG) Urine Bilirubin Negative (NEG) Urine Urobilinogen Dipstick 0.2 mg/dL (0.2 mg/dL) Urine Leukocyte Esterase Negative (NEG) Urine RBC 3-5 /HPF (0-2) Urine WBC 1-4 /HPF (0-4) Urine Squamous Epithelial Cells Occ /LPF Urine Bacteria 0 /HPF (0-FEW) Urine Mucus Mod /LPF White Blood Count 15.0 x10^3/uL (4.0-11.0) 13.4 x10^3/uL (4.0-11.0) Red Blood Count 5.50 x10^6/uL (3.50-5.40) 5.39 x10^6/uL (3.50-5.40) Hemoglobin 15.7 g/dL (12.0-15.5) 15.3 g/dL (12.0-15.5) Hematocrit 47.0 % (36.0-47.0) 46.7 % (36.0-47.0) Mean Corpuscular Volume 86 fL (79-100) 87 fL (79-100) Mean Corpuscular Hemoglobin 29 pg (25-35) 28 pg (25-35) Mean Corpuscular Hemoglobin Concent 33 g/dL (31-37) 33 g/dL (31-37) Red Cell Distribution Width 15.1 % (11.5-14.5) 15.7 % (11.5-14.5) Platelet Count 224 x10^3/uL (140-400) 201 x10^3/uL (140-400) Neutrophils (%) (Auto) 84 % (31-73) Lymphocytes (%) (Auto) 10 % (24-48) Monocytes (%) (Auto) 6 % (0-9) Eosinophils (%) (Auto) 0 % (0-3) Basophils (%) (Auto) 1 % (0-3) Neutrophils # (Auto) 12.6 x10^3/uL (1.8-7.7) Lymphocytes # (Auto) 1.5 x10^3/uL (1.0-4.8) Monocytes # (Auto) 0.8 x10^3/uL (0.0-1.1) Eosinophils # (Auto) 0.0 x10^3/uL (0.0-0.7) Basophils # (Auto) 0.1 x10^3/uL (0.0-0.2) Segmented Neutrophils % 79 % (35-66) Lymphocytes % 13 % (24-48) Monocytes % 7 % (0-10) Basophils % 1 % (0-3) Platelet Estimate Adequate (ADEQUATE) Polychromasia Slight Anisocytosis Slight Schistocytes Occ Sodium Level 140 mmol/L (136-145) 139 mmol/L (136-145) Potassium Level 3.1 mmol/L (3.5-5.1) 4.1 mmol/L (3.5-5.1) Chloride Level 98 mmol/L (98-107) 99 mmol/L (98-107) Carbon Dioxide Level 25 mmol/L (21-32) 30 mmol/L (21-32) Anion Gap 17 (6-14) 10 (6-14) Blood Urea Nitrogen 15 mg/dL (7-20) 23 mg/dL (7-20) Creatinine 1.2 mg/dL (0.6-1.0) 1.6 mg/dL (0.6-1.0) Estimated GFR (Cockcroft-Gault) 56.4 40.5 BUN/Creatinine Ratio 13 (6-20) Glucose Level 188 mg/dL (70-99) 116 mg/dL (70-99) Calcium Level 11.2 mg/dL (8.5-10.1) 10.4 mg/dL (8.5-10.1) Magnesium Level 1.6 mg/dL (1.8-2.4) 3.5 mg/dL (1.8-2.4) Total Bilirubin 1.0 mg/dL (0.2-1.0) Aspartate Amino Transf (AST/SGOT) 20 U/L (15-37) Alanine Aminotransferase (ALT/SGPT) 19 U/L (14-59) Alkaline Phosphatase 87 U/L (46-116) Total Protein 10.3 g/dL (6.4-8.2) Albumin 4.8 g/dL (3.4-5.0) Albumin/Globulin Ratio 0.9 (1.0-1.7) Lipase 87 U/L (73-393) Allergies: Coded Allergies: Penicillins (Verified Allergy, Intermediate, HAS TOLERATED AMOXICILLIN, 06/04/19) Medications: Current Medications Medications (Trade) Dose Ordered Sig/Emile Route PRN Reason Start Time Stop Time Status Last Admin Dose Admin Sodium Chloride 1,000 ml @ 1,000 mls/hr 1X ONCE IV 07/02/19 16:15 07/02/19 17:14 DC 07/02/19 16:27 Ondansetron HCl (Zofran) 4 mg 1X ONCE IV 07/02/19 16:15 07/02/19 16:20 DC 07/02/19 16:28 Morphine Sulfate (Morphine Sulfate) 4 mg 1X ONCE IV 07/02/19 16:15 07/02/19 16:20 DC 07/02/19 16:28 Pantoprazole Sodium (PROTONIX VIAL for IV PUSH) 40 mg 1X ONCE IVP 07/02/19 16:15 07/02/19 16:20 DC 07/02/19 16:27 Pantoprazole Sodium 80 mg/ Sodium Chloride 100 ml @ 10 mls/hr Q10H PRN IV . 07/02/19 16:15 07/03/19 09:13 Hydralazine HCl (Apresoline Inj) 10 mg 1X ONCE IVP 07/02/19 16:30 07/02/19 16:32 DC 07/02/19 17:09 Fentanyl Citrate (Fentanyl 2ml Vial) 50 mcg 1X ONCE IVP 07/02/19 16:45 07/02/19 16:46 DC 07/02/19 17:10 Labetalol HCl (Normodyne Iv Push) 20 mg 1X ONCE IVP 07/02/19 16:45 07/02/19 16:46 DC 07/02/19 18:05 Ondansetron HCl (Zofran) 4 mg PRN Q8HRS PRN IV NAUSEA/VOMITING 07/02/19 17:30 07/03/19 17:29 07/03/19 08:27 Morphine Sulfate (Morphine Sulfate) 4 mg PRN Q2HR PRN IV PAIN 07/02/19 17:30 07/03/19 17:29 07/03/19 08:27 Nicardipine HCl 50 mg/Sodium Chloride 250 ml @ 25 mls/hr CONT PRN IV SEE I/O RECORD 07/02/19 19:15 07/02/19 19:55 Magnesium Sulfate 100 ml @ 25 mls/hr 1X ONCE IV 07/02/19 21:30 07/03/19 01:29 DC 07/03/19 00:02 Potassium Chloride/Water 100 ml @ 100 mls/hr Q1H IV 07/02/19 21:30 07/03/19 01:29 DC 07/03/19 01:11 Amlodipine Besylate (Norvasc) 10 mg DAILY PO 07/03/19 09:00 07/03/19 08:27 Gabapentin (Neurontin) 300 mg TID PO 07/03/19 09:00 07/03/19 08:26 Acetaminophen/ Hydrocodone Bitart (Lortab 5/325) 1 tab PRN Q4HRS PRN PO PAIN 07/02/19 21:30 07/03/19 10:54 Lidocaine (Lidoderm) 1 patch DAILY TD 07/03/19 11:00 07/03/19 11:31 Nicotine (Nicoderm Cq 21mg) 1 patch DAILY TD 07/03/19 11:00 07/03/19 11:31 PE: GEN: NAD HEENT: Atraumatic, PERRL LUNGS: CTAB HEART: RRR ABD: NABS, S/ND/NT EXTREMITY: No edema SKIN: No rashes, no jaundice NEURO/PSYCH: A & O 3 A/P: A/P: Recurrent n/v, abd pain, and uncontrolled HTN Concern for pheo or paraganglionoma w/ abnormal urine collection in 03/2019 H/o H. pylori - treated H/o ischemic colitis Non-compliance -- Have explained to her many times in the past - she doesn't appear to comprehend or remember. ?attempt to schedule octreotide scan - will defer this to Dr. Veloz/GERMAN/administration as they have discussed in the past. Try clears, ADAT, PO PPI. ANDRES HOFFMAN Jul 03, 2019 12:07
--- NOTE | 2019-07-03 12:41 | PDOC ---
[facility] PROGRESS NOTE Chief Complaint Chief Complaint Hematemesis, intractable abdominal pain,HTN. History of Present Illness History of Present Illness Patient is a 54 year old female admitted for hematemesis and intractable abdominal pain, and HTN. Patient was seen and examined in the ICU today. ANTONIO RN the possibility of moving her to the [facility]. overflow unit from the ICU. Patient had difficulty expressing herself, as she suffers from a speech impediment. She continuously asked for ice chips, complaining of dehydration. Nursing reports that she has been given several cups of ice chips and that she is unable to have more solids or liquids prior to her GI endoscopy. Patient was on Nicardipine drip yesterday for hypertensive emergency, her BP has since come down to normal levels and the drip has been discontinued. Vitals/I&O Vitals/I&O: Vital Signs Date Time Temp Pulse Resp B/P (MAP) Pulse Ox O2 Delivery O2 Flow Rate FiO2 07/03/19 12:00 81 13 110/69 (83) 98 Room Air 07/03/19 08:00 97.9 97.9 I & O 07/02/19 07/02/19 07/03/19 15:00 23:00 07:00 Intake Total 1000 ml 815 ml Output Total 0 ml 0 ml Balance 1000 ml 815 ml Physical Exam General: Alert, Oriented X3, mild distress Heart: Regular rate, Normal S1, Normal S2, No murmurs Lungs: Clear Abdomen: Normal bowel sounds, Soft Extremities: No clubbing, No cyanosis, No edema Skin: No rashes, No breakdown, No significant lesion Labs Labs: Laboratory Tests Test 07/02/19 15:28 07/02/19 16:30 07/03/19 09:10 Urine Color Yellow Urine Clarity Cloudy Urine pH 8.0 Urine Specific [place] 1.010 Urine Protein 100 mg/dL (NEG-TRACE) Urine Glucose (UA) 100 mg/dL (NEG) Urine Ketones (Stick) Negative mg/dL (NEG) Urine Blood Small (NEG) Urine Nitrite Negative (NEG) Urine Bilirubin Negative (NEG) Urine Urobilinogen Dipstick 0.2 mg/dL (0.2 mg/dL) Urine Leukocyte Esterase Negative (NEG) Urine RBC 3-5 /HPF (0-2) Urine WBC 1-4 /HPF (0-4) Urine Squamous Epithelial Cells Occ /LPF Urine Bacteria 0 /HPF (0-FEW) Urine Mucus Mod /LPF White Blood Count 15.0 x10^3/uL (4.0-11.0) 13.4 x10^3/uL (4.0-11.0) Red Blood Count 5.50 x10^6/uL (3.50-5.40) 5.39 x10^6/uL (3.50-5.40) Hemoglobin 15.7 g/dL (12.0-15.5) 15.3 g/dL (12.0-15.5) Hematocrit 47.0 % (36.0-47.0) 46.7 % (36.0-47.0) Mean Corpuscular Volume 86 fL (79-100) 87 fL (79-100) Mean Corpuscular Hemoglobin 29 pg (25-35) 28 pg (25-35) Mean Corpuscular Hemoglobin Concent 33 g/dL (31-37) 33 g/dL (31-37) Red Cell Distribution Width 15.1 % (11.5-14.5) 15.7 % (11.5-14.5) Platelet Count 224 x10^3/uL (140-400) 201 x10^3/uL (140-400) Neutrophils (%) (Auto) 84 % (31-73) Lymphocytes (%) (Auto) 10 % (24-48) Monocytes (%) (Auto) 6 % (0-9) Eosinophils (%) (Auto) 0 % (0-3) Basophils (%) (Auto) 1 % (0-3) Neutrophils # (Auto) 12.6 x10^3/uL (1.8-7.7) Lymphocytes # (Auto) 1.5 x10^3/uL (1.0-4.8) Monocytes # (Auto) 0.8 x10^3/uL (0.0-1.1) Eosinophils # (Auto) 0.0 x10^3/uL (0.0-0.7) Basophils # (Auto) 0.1 x10^3/uL (0.0-0.2) Segmented Neutrophils % 79 % (35-66) Lymphocytes % 13 % (24-48) Monocytes % 7 % (0-10) Basophils % 1 % (0-3) Platelet Estimate Adequate (ADEQUATE) Polychromasia Slight Anisocytosis Slight Schistocytes Occ Sodium Level 140 mmol/L (136-145) 139 mmol/L (136-145) Potassium Level 3.1 mmol/L (3.5-5.1) 4.1 mmol/L (3.5-5.1) Chloride Level 98 mmol/L (98-107) 99 mmol/L (98-107) Carbon Dioxide Level 25 mmol/L (21-32) 30 mmol/L (21-32) Anion Gap 17 (6-14) 10 (6-14) Blood Urea Nitrogen 15 mg/dL (7-20) 23 mg/dL (7-20) Creatinine 1.2 mg/dL (0.6-1.0) 1.6 mg/dL (0.6-1.0) Estimated GFR (Cockcroft-Gault) 56.4 40.5 BUN/Creatinine Ratio 13 (6-20) Glucose Level 188 mg/dL (70-99) 116 mg/dL (70-99) Calcium Level 11.2 mg/dL (8.5-10.1) 10.4 mg/dL (8.5-10.1) Magnesium Level 1.6 mg/dL (1.8-2.4) 3.5 mg/dL (1.8-2.4) Total Bilirubin 1.0 mg/dL (0.2-1.0) Aspartate Amino Transf (AST/SGOT) 20 U/L (15-37) Alanine Aminotransferase (ALT/SGPT) 19 U/L (14-59) Alkaline Phosphatase 87 U/L (46-116) Total Protein 10.3 g/dL (6.4-8.2) Albumin 4.8 g/dL (3.4-5.0) Albumin/Globulin Ratio 0.9 (1.0-1.7) Lipase 87 U/L (73-393) Review of Systems Review of Systems: Patient complains of dry mouth Patient denies weakness Assessment and Plan Assessmemt and Plan Problems Medical Problems: (1) Essential hypertension Status: Acute (2) Hematemesis Status: Acute (3) Intractable abdominal pain Status: Acute Assessment: Hematemesis, intractable abdominal pain, Hypertensive emergency. Patient was seen and examined in the ICU. ANTONIO RN. Plan: 1. Monitor BP 2. transfer to [facility]. overflow unit. 3. DVT prophylaxis 4. IV protonics 5. G.I consult pending- await further input 6. track Hemoglobin 7. Full code Comment Review of Relevant I have reviewed the following items starr (where applicable) has been applied. Medications: Current Medications Medications (Trade) Dose Ordered Sig/Emile Route PRN Reason Start Time Stop Time Status Last Admin Dose Admin Sodium Chloride 1,000 ml @ 1,000 mls/hr 1X ONCE IV 07/02/19 16:15 07/02/19 17:14 DC 07/02/19 16:27 Ondansetron HCl (Zofran) 4 mg 1X ONCE IV 07/02/19 16:15 07/02/19 16:20 DC 07/02/19 16:28 Morphine Sulfate (Morphine Sulfate) 4 mg 1X ONCE IV 07/02/19 16:15 07/02/19 16:20 DC 07/02/19 16:28 Pantoprazole Sodium (PROTONIX VIAL for IV PUSH) 40 mg 1X ONCE IVP 07/02/19 16:15 07/02/19 16:20 DC 07/02/19 16:27 Pantoprazole Sodium 80 mg/ Sodium Chloride 100 ml @ 10 mls/hr Q10H PRN IV . 07/02/19 16:15 07/03/19 12:08 DC 07/03/19 09:13 Hydralazine HCl (Apresoline Inj) 10 mg 1X ONCE IVP 07/02/19 16:30 07/02/19 16:32 DC 07/02/19 17:09 Fentanyl Citrate (Fentanyl 2ml Vial) 50 mcg 1X ONCE IVP 07/02/19 16:45 07/02/19 16:46 DC 07/02/19 17:10 Labetalol HCl (Normodyne Iv Push) 20 mg 1X ONCE IVP 07/02/19 16:45 07/02/19 16:46 DC 07/02/19 18:05 Ondansetron HCl (Zofran) 4 mg PRN Q8HRS PRN IV NAUSEA/VOMITING 07/02/19 17:30 07/03/19 17:29 07/03/19 08:27 Morphine Sulfate (Morphine Sulfate) 4 mg PRN Q2HR PRN IV PAIN 07/02/19 17:30 07/03/19 17:29 07/03/19 08:27 Nicardipine HCl 50 mg/Sodium Chloride 250 ml @ 25 mls/hr CONT PRN IV SEE I/O RECORD 07/02/19 19:15 07/02/19 19:55 Magnesium Sulfate 100 ml @ 25 mls/hr 1X ONCE IV 07/02/19 21:30 07/03/19 01:29 DC 07/03/19 00:02 Potassium Chloride/Water 100 ml @ 100 mls/hr Q1H IV 07/02/19 21:30 07/03/19 01:29 DC 07/03/19 01:11 Amlodipine Besylate (Norvasc) 10 mg DAILY PO 07/03/19 09:00 07/03/19 08:27 Gabapentin (Neurontin) 300 mg TID PO 07/03/19 09:00 07/03/19 08:26 Acetaminophen/ Hydrocodone Bitart (Lortab 5/325) 1 tab PRN Q4HRS PRN PO PAIN 07/02/19 21:30 07/03/19 10:54 Lidocaine (Lidoderm) 1 patch DAILY TD 07/03/19 11:00 07/03/19 11:31 Nicotine (Nicoderm Cq 21mg) 1 patch DAILY TD 07/03/19 11:00 07/03/19 11:31 WHIT CABA III DO Jul 03, 2019 12:41
--- NOTE | 2019-07-03 15:09 | NUR ---
Patient transferred to room 416 at 1500 via wheelchair, transportation. All belongings with patient at time of transfer. Report given to Michelle PATEL via phone.
--- NOTE | 2019-07-03 15:16 | NUR ---
Report received from JORGE Barrett in ICU at approx 1430. Pt arrived on unit at approx 1500. Pt oriented to room and call light. No additional concerns, will continue to monitor pt.
[2019-07-03] MEDS ORDERED: PATCH REMOVAL. MC SCH (21:00)
[2019-07-04] VITALS: BP 148/95
[2019-07-04] MEDS: HYDROcodone/APAP 5/325MG 1 TAB TABLET PO PRN (00:48)
[2019-07-04 03:00] VITALS: BP 139/87
[2019-07-04] MEDS ORDERED: HYDROcodone/APAP 5/325MG 1 TAB TABLET PO PRN (04:15)
[2019-07-04 07:00] VITALS: BP_SYST 123; BP_SYST 137; BP_DIAS 106; BP_DIAS 85
[2019-07-04] MEDS ORDERED: PANTOPRAZOLE 40 MG TABLET.DR. PO SCH (07:30)
[2019-07-04] MEDS: GABAPENTIN 300 MG CAPSULE. PO SCH (08:48)
[2019-07-04] MEDS: amLODIPine BESYLATE 10 MG TABLET PO SCH (08:49)
[2019-07-04] MEDS: NICOTINE 21MG PATCH. TD SCH (08:52)
[2019-07-04] MEDS: LIDOCAINE (700MG/PATCH) PATCH. TD SCH (08:53)
--- NOTE | 2019-07-04 09:01 | PDOC ---
PROGRESS NOTES Chief Complaint Chief Complaint A/P: Hypertensive emergency - admitted to ICU initially. Has had elevated normetanephrines previously, has not had completed a somatostatin scan Acute encephalopathy - she is aware she is confused, no focal neuro deficits. With her BP coming down she feels improved. Acute abdominal pain - uncertain etiology, known well to GI service, will consult Nausea and vomiting - intractable, will keep meds IV, zofran, compazine until able to take PO Hypokalemia - replace IV and po, check mag. Hypomagnesemia - will replace in AM Dehydration - from pain and nausea and poor PO intake, , IV fluid Hypercalcemia - 10.2 will give IVF. Monitor, check phos, vitamin D levels, pth Hyperglycemia - will monitor Leukocytosis - likely from vomiting and element of hemoconcentration History of Present Illness History of Present Illness Ms Rajput is a 54yo F w/ PMHx Anxiety, Depression, GERD, High Cholesterol, Hyp ertension, PUD, Gastroparesis who presents to the ED complaining of 10 out of 10 mid abdominal pain with vomiting of that began at 6 AM this morning, though she notes she vomited yesterday as well and now it is grossly bloody. Patient denies any diarrhea. Denies any fever. She does note some confusion. Denies any urgency frequency dysuria. She does note calf pain and cramping that began this afternoon. Patient arrived in the ED requesting we put an IV in right away and give her something for pain and vomiting. She was writhing around the bed. Hemoglobin 15.7, Potassium of 3.1, patient was unable to take oral potassium replacement a nd mag level returned 1.6. Calcium 11.2. prominent T waves but no STEMI was identified normal sinus rhythm rate of 80 QTC 456 Blood pressure 224/134 over to the ED with a heart rate of 84. Patient has history of uncontrolled hypertension. Given labetalol IV, hydralazine IV, clonidine by mouth. Blood pressure 233/156. Given cardene gtt with some improvement. Called for admission for intractable nausea/vomiting and HTN emergency. BP has since come down to normal levels and the drip has been discontinued. Tr ansferred to floor. On further review she did have positive VMA and normetanephrine on 24 hour urine previously, did not complete her somatostatin scan. She has been hospitalized multiple times since with elevated BP and hypercalcemia. She is distraught today, wants to get home to take care of her daughter and find her grand-daughter she says was taken away. Vitals Vitals Vital Signs Date Time Temp Pulse Resp B/P (MAP) Pulse Ox O2 Delivery O2 Flow Rate FiO2 07/04/19 08:49 88 137/106 07/04/19 07:34 16 Room Air 07/04/19 07:00 97.9 99 97.9 Physical Exam General: Alert, Oriented X3, mild distress Heart: Regular rate, Normal S1, Normal S2, No murmurs Lungs: Clear Abdomen: Normal bowel sounds, Soft Extremities: No clubbing, No cyanosis, No edema Skin: No rashes, No breakdown, No significant lesion Labs LABS Laboratory Tests Test 07/03/19 09:10 White Blood Count 13.4 x10^3/uL (4.0-11.0) Red Blood Count 5.39 x10^6/uL (3.50-5.40) Hemoglobin 15.3 g/dL (12.0-15.5) Hematocrit 46.7 % (36.0-47.0) Mean Corpuscular Volume 87 fL (79-100) Mean Corpuscular Hemoglobin 28 pg (25-35) Mean Corpuscular Hemoglobin Concent 33 g/dL (31-37) Red Cell Distribution Width 15.7 % (11.5-14.5) Platelet Count 201 x10^3/uL (140-400) Sodium Level 139 mmol/L (136-145) Potassium Level 4.1 mmol/L (3.5-5.1) Chloride Level 99 mmol/L (98-107) Carbon Dioxide Level 30 mmol/L (21-32) Anion Gap 10 (6-14) Blood Urea Nitrogen 23 mg/dL (7-20) Creatinine 1.6 mg/dL (0.6-1.0) Estimated GFR (Cockcroft-Gault) 40.5 Glucose Level 116 mg/dL (70-99) Calcium Level 10.4 mg/dL (8.5-10.1) Magnesium Level 3.5 mg/dL (1.8-2.4) Assessment and Plan Assessmemt and Plan Problems Medical Problems: (1) Essential hypertension Status: Acute (2) Hematemesis Status: Acute (3) Intractable abdominal pain Status: Acute Comment Review of Relevant I have reviewed the following items starr (where applicable) has been applied. Labs Laboratory Tests Test 07/02/19 15:28 07/02/19 16:30 07/03/19 09:10 Urine Color Yellow Urine Clarity Cloudy Urine pH 8.0 Urine Specific [place] 1.010 Urine Protein 100 mg/dL (NEG-TRACE) Urine Glucose (UA) 100 mg/dL (NEG) Urine Ketones (Stick) Negative mg/dL (NEG) Urine Blood Small (NEG) Urine Nitrite Negative (NEG) Urine Bilirubin Negative (NEG) Urine Urobilinogen Dipstick 0.2 mg/dL (0.2 mg/dL) Urine Leukocyte Esterase Negative (NEG) Urine RBC 3-5 /HPF (0-2) Urine WBC 1-4 /HPF (0-4) Urine Squamous Epithelial Cells Occ /LPF Urine Bacteria 0 /HPF (0-FEW) Urine Mucus Mod /LPF White Blood Count 15.0 x10^3/uL (4.0-11.0) 13.4 x10^3/uL (4.0-11.0) Red Blood Count 5.50 x10^6/uL (3.50-5.40) 5.39 x10^6/uL (3.50-5.40) Hemoglobin 15.7 g/dL (12.0-15.5) 15.3 g/dL (12.0-15.5) Hematocrit 47.0 % (36.0-47.0) 46.7 % (36.0-47.0) Mean Corpuscular Volume 86 fL (79-100) 87 fL (79-100) Mean Corpuscular Hemoglobin 29 pg (25-35) 28 pg (25-35) Mean Corpuscular Hemoglobin Concent 33 g/dL (31-37) 33 g/dL (31-37) Red Cell Distribution Width 15.1 % (11.5-14.5) 15.7 % (11.5-14.5) Platelet Count 224 x10^3/uL (140-400) 201 x10^3/uL (140-400) Neutrophils (%) (Auto) 84 % (31-73) Lymphocytes (%) (Auto) 10 % (24-48) Monocytes (%) (Auto) 6 % (0-9) Eosinophils (%) (Auto) 0 % (0-3) Basophils (%) (Auto) 1 % (0-3) Neutrophils # (Auto) 12.6 x10^3/uL (1.8-7.7) Lymphocytes # (Auto) 1.5 x10^3/uL (1.0-4.8) Monocytes # (Auto) 0.8 x10^3/uL (0.0-1.1) Eosinophils # (Auto) 0.0 x10^3/uL (0.0-0.7) Basophils # (Auto) 0.1 x10^3/uL (0.0-0.2) Segmented Neutrophils % 79 % (35-66) Lymphocytes % 13 % (24-48) Monocytes % 7 % (0-10) Basophils % 1 % (0-3) Platelet Estimate Adequate (ADEQUATE) Polychromasia Slight Anisocytosis Slight Schistocytes Occ Sodium Level 140 mmol/L (136-145) 139 mmol/L (136-145) Potassium Level 3.1 mmol/L (3.5-5.1) 4.1 mmol/L (3.5-5.1) Chloride Level 98 mmol/L (98-107) 99 mmol/L (98-107) Carbon Dioxide Level 25 mmol/L (21-32) 30 mmol/L (21-32) Anion Gap 17 (6-14) 10 (6-14) Blood Urea Nitrogen 15 mg/dL (7-20) 23 mg/dL (7-20) Creatinine 1.2 mg/dL (0.6-1.0) 1.6 mg/dL (0.6-1.0) Estimated GFR (Cockcroft-Gault) 56.4 40.5 BUN/Creatinine Ratio 13 (6-20) Glucose Level 188 mg/dL (70-99) 116 mg/dL (70-99) Calcium Level 11.2 mg/dL (8.5-10.1) 10.4 mg/dL (8.5-10.1) Magnesium Level 1.6 mg/dL (1.8-2.4) 3.5 mg/dL (1.8-2.4) Total Bilirubin 1.0 mg/dL (0.2-1.0) Aspartate Amino Transf (AST/SGOT) 20 U/L (15-37) Alanine Aminotransferase (ALT/SGPT) 19 U/L (14-59) Alkaline Phosphatase 87 U/L (46-116) Total Protein 10.3 g/dL (6.4-8.2) Albumin 4.8 g/dL (3.4-5.0) Albumin/Globulin Ratio 0.9 (1.0-1.7) Lipase 87 U/L (73-393) Laboratory Tests Test 07/03/19 09:10 White Blood Count 13.4 x10^3/uL (4.0-11.0) Red Blood Count 5.39 x10^6/uL (3.50-5.40) Hemoglobin 15.3 g/dL (12.0-15.5) Hematocrit 46.7 % (36.0-47.0) Mean Corpuscular Volume 87 fL (79-100) Mean Corpuscular Hemoglobin 28 pg (25-35) Mean Corpuscular Hemoglobin Concent 33 g/dL (31-37) Red Cell Distribution Width 15.7 % (11.5-14.5) Platelet Count 201 x10^3/uL (140-400) Sodium Level 139 mmol/L (136-145) Potassium Level 4.1 mmol/L (3.5-5.1) Chloride Level 99 mmol/L (98-107) Carbon Dioxide Level 30 mmol/L (21-32) Anion Gap 10 (6-14) Blood Urea Nitrogen 23 mg/dL (7-20) Creatinine 1.6 mg/dL (0.6-1.0) Estimated GFR (Cockcroft-Gault) 40.5 Glucose Level 116 mg/dL (70-99) Calcium Level 10.4 mg/dL (8.5-10.1) Magnesium Level 3.5 mg/dL (1.8-2.4) Medications Current Medications Sodium Chloride 1,000 ml @ 1,000 mls/hr 1X ONCE IV Last administered on 07/02/19at 16:27; Start 07/02/19 at 16:15; Stop 07/02/19 at 17:14; Status DC Ondansetron HCl (Zofran) 4 mg 1X ONCE IV Last administered on 07/02/19at 16:28; Start 07/02/19 at 16:15; Stop 07/02/19 at 16:20; Status DC Morphine Sulfate (Morphine Sulfate) 4 mg 1X ONCE IV Last administered on 07/02/19at 16:28; Start 07/02/19 at 16:15; Stop 07/02/19 at 16:20; Status DC Pantoprazole Sodium (PROTONIX VIAL for IV PUSH) 40 mg 1X ONCE IVP Last administered on 07/02/19 16:27; Start 07/02/19 at 16:15; Stop 07/02/19 at 16:20; Status DC Pantoprazole Sodium 80 mg/ Sodium Chloride 100 ml @ 10 mls/hr Q10H PRN IV . Last administered on 07/03/19 09:13; Start 07/02/19 at 16:15; Stop 07/03/19 at 12:08; Status DC Hydralazine HCl (Apresoline Inj) 10 mg 1X ONCE IVP Last administered on 07/02/19 17:09; Start 07/02/19 at 16:30; Stop 07/02/19 at 16:32; Status DC Fentanyl Citrate (Fentanyl 2ml Vial) 50 mcg 1X ONCE IVP Last administered on 07/02/19at 17:10; Start 07/02/19 at 16:45; Stop 07/02/19 at 16:46; Status DC Labetalol HCl (Normodyne Iv Push) 20 mg 1X ONCE IVP Last administered on 07/02/19at 18:05; Start 07/02/19 at 16:45; Stop 07/02/19 at 16:46; Status DC Ondansetron HCl (Zofran) 4 mg PRN Q8HRS PRN IV NAUSEA/VOMITING Last administered on 07/03/19at 08:27; Start 07/02/19 at 17:30; Stop 07/03/19 at 17:29; Status DC Morphine Sulfate (Morphine Sulfate) 4 mg PRN Q2HR PRN IV PAIN Last administered on 07/03/19 08:27; Start 07/02/19 at 17:30; Stop 07/03/19 at 17:29; Status DC Nicardipine HCl 50 mg/Sodium Chloride 250 ml @ 25 mls/hr CONT PRN IV SEE I/O RECORD Last administered on 07/02/19at 19:55; Start 07/02/19 at 19:15 Magnesium Sulfate 100 ml @ 25 mls/hr 1X ONCE IV Last administered on 07/03/19 00:02; Start 07/02/19 at 21:30; Stop 07/03/19 at 01:29; Status DC Potassium Chloride/Water 100 ml @ 100 mls/hr Q1H IV Last administered on 07/03/19 01:11; Start 07/02/19 at 21:30; Stop 07/03/19 at 01:29; Status DC Amlodipine Besylate (Norvasc) 10 mg DAILY PO Last administered on 07/04/19 08:49; Start 07/03/19 at 09:00 Cyclobenzaprine HCl (Flexeril) 10 mg PRN TID PRN PO MUSCLE SPASMS; Start 07/02/19 at 21:30 Gabapentin (Neurontin) 300 mg TID PO Last administered on 07/04/19 08:48; Start 07/03/19 at 09:00 Acetaminophen/ Hydrocodone Bitart (Lortab 5/325) 1 tab PRN Q4HRS PRN PO PAIN Last administered on 07/04/19 00:48; Start 07/02/19 at 21:30 Ondansetron HCl (Zofran Odt) 4 mg PRN Q8HRS PRN PO NAUSEA/VOMITING; Start 07/02/19 at 22:00 Lidocaine (Lidoderm) 1 patch DAILY TD Last administered on 07/04/19 08:53; Start 07/03/19 at 11:00 Miscellaneous (Lidoderm Patch Removal) 1 ea QHS MC Last administered on 07/03/19 21:00; Start 07/03/19 at 21:00 Nicotine (Nicoderm Cq 21mg) 1 patch DAILY TD Last administered on 07/04/19 08:52; Start 07/03/19 at 11:00 Pantoprazole Sodium (Protonix) 40 mg DAILYAC PO Last administered on 07/04/19 06:34; Start 07/04/19 at 07:30 Acetaminophen/ Hydrocodone Bitart (Lortab 5/325) 2 tab PRN Q4HRS PRN PO PAIN Last administered on 07/04/19 06:34; Start 07/04/19 at 04:15 Active Scripts Active Pantoprazole Sodium (Pantoprazole Sodium) 40 Mg Tablet.dr 40 Mg PO DAILYAC Zofran (Ondansetron Hcl) 4 Mg Tablet 1 Tab PO Q6HRS Hydrocodone-Apap 5-325 (Hydrocodone Bit/Acetaminophen) 1 Tab Tablet 1 Tab PO PRN Q4HRS PRN Zofran Odt (Ondansetron) 4 Mg Tab.rapdis 1 Tab SL Q8HRS Reported Ranitidine Hcl 150 Mg Capsule 1 Cap PO BID Cyclobenzaprine Hcl 10 Mg Tablet 1 Tab PO PRN TID PRN Amlodipine Besylate 10 Mg Tablet 10 Mg PO DAILY Gabapentin 300 Mg Capsule 300 Mg PO TID Vitals/I & O Vital Sign - Last 24 Hours 07/03/19 07/03/19 07/03/19 07/03/19 09:00 10:54 11:54 12:00 Pulse 82 81 Resp 12 16 13 B/P (MAP) 109/78 (88) 110/69 (83) Pulse Ox 97 97 98 98 O2 Delivery Room Air Room Air Room Air Room Air 07/03/19 07/03/19 07/03/19 07/03/19 15:00 19:00 19:45 20:32 Temp 98.2 98.3 98.2 98.3 Pulse 84 86 Resp 18 20 B/P (MAP) 125/90 (102) 141/102 (115) Pulse Ox 97 100 O2 Delivery Room Air Room Air Room Air Room Air 07/03/19 07/03/19 07/04/19 07/04/19 20:40 23:31 00:00 00:48 Temp 98.7 98.7 Pulse 76 Resp 18 B/P (MAP) 152/98 (116) 148/95 (112) Pulse Ox 100 O2 Delivery Room Air Room Air Room Air 07/04/19 07/04/19 07/04/19 07/04/19 01:48 03:00 06:34 07:00 Temp 98.4 97.9 98.4 97.9 Pulse 85 88 Resp 18 16 B/P (MAP) 139/87 (104) 137/106 (116) Pulse Ox 100 99 O2 Delivery Room Air Room Air Room Air Room Air 07/04/19 07/04/19 07:34 08:49 Pulse 88 Resp 16 B/P (MAP) 137/106 O2 Delivery Room Air Intake and Output 07/03/19 07/03/19 07/04/19 15:00 23:00 07:00 Intake Total 187 ml 300 ml Output Total 0 ml Balance 187 ml 300 ml Nutrition Consultation Dietary Evaluation: Recommendations by RD: Increase Calorie Intake, Protein supplementation Comments: REC advance diet as able per MDs, goal diet cardiac/bland, per pt tolerance REC Ensure TID (all flavors) Expected Outcomes/Goals: diet advancement Interpretation of weight loss: >10% in 6 months Malnutrition Findings: Food and Nutrition Intake (Sev: <50% est energy req 5days Weight Status: Underweight REGULO CUEVA MD Jul 04, 2019 09:01
--- NOTE | 2019-07-04 09:38 | PDOC ---
Subjective: Subjective: Upset - had abd and back pain last night, says the nurse said she didn't want to wake the doctor up to ask for more pain medication and that was upsetting (but she did get some pain pills). During this time, felt dizzy and like she was having a panic attack. IV was bleeding last night, not satisfied w/ how that was handled. "I didn't like this hospital last night." Eating breakfast this morning and was talking on the phone when I walked in. Has not vomited. Attempted to (again) explain rationale for octreotide scan and the difficulties we've had in the past attempting to order than - I mentioned how she left AMA last time and she says that's not true. She says "so what you're saying is that you aren't going to help me so I'll just leave." Objective: Objective: D/w nurse. 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 Have exhaustively explained our concerns to her. She was upset when I left her room and asking to speak to "the head doctor." Have recommended octreotide scan in the past - tracer must be ordered w/ nuc med by afternoons to be deliver on Monday or Monday - last time Dr. Veloz/administration got involved and gave permission for her to discharge and then return as outpt to have the scan, but then she left AMA before this was finalized. If no plans for octreotide scan, would look to discharge. ANDRES HOFFMAN Jul 04, 2019 09:38
--- NOTE | 2019-07-04 10:32 | PDOC3 ---
Discharge Summary Visit Information Date of Admission: Jul 02, 2019 Date of Discharge: Jul 04, 2019 Admitting Diagnosis: Hematemesis, HTN emergency Final Diagnosis Problems Medical Problems: (1) Essential hypertension Status: Acute (2) Hematemesis Status: Acute (3) Intractable abdominal pain Status: Acute Brief Hospital Course Allergies Allergies Coded Allergies Type Severity Reaction Last Updated Verified Penicillins Allergy Intermediate HAS TOLERATED AMOXICILLIN 06/04/19 Yes Vital Signs Vital Signs Date Time Temp Pulse Resp B/P (MAP) Pulse Ox O2 Delivery O2 Flow Rate FiO2 07/04/19 08:49 88 137/106 07/04/19 08:00 Room Air 07/04/19 07:34 16 07/04/19 07:00 97.9 99 97.9 Lab Results Laboratory Tests Test 07/02/19 15:28 07/02/19 16:30 07/03/19 09:10 Urine Color Yellow Urine Clarity Cloudy Urine pH 8.0 Urine Specific Gordon 1.010 Urine Protein 100 mg/dL (NEG-TRACE) Urine Glucose (UA) 100 mg/dL (NEG) Urine Ketones (Stick) Negative mg/dL (NEG) Urine Blood Small (NEG) Urine Nitrite Negative (NEG) Urine Bilirubin Negative (NEG) Urine Urobilinogen Dipstick 0.2 mg/dL (0.2 mg/dL) Urine Leukocyte Esterase Negative (NEG) Urine RBC 3-5 /HPF (0-2) Urine WBC 1-4 /HPF (0-4) Urine Squamous Epithelial Cells Occ /LPF Urine Bacteria 0 /HPF (0-FEW) Urine Mucus Mod /LPF White Blood Count 15.0 x10^3/uL (4.0-11.0) 13.4 x10^3/uL (4.0-11.0) Red Blood Count 5.50 x10^6/uL (3.50-5.40) 5.39 x10^6/uL (3.50-5.40) Hemoglobin 15.7 g/dL (12.0-15.5) 15.3 g/dL (12.0-15.5) Hematocrit 47.0 % (36.0-47.0) 46.7 % (36.0-47.0) Mean Corpuscular Volume 86 fL (79-100) 87 fL (79-100) Mean Corpuscular Hemoglobin 29 pg (25-35) 28 pg (25-35) Mean Corpuscular Hemoglobin Concent 33 g/dL (31-37) 33 g/dL (31-37) Red Cell Distribution Width 15.1 % (11.5-14.5) 15.7 % (11.5-14.5) Platelet Count 224 x10^3/uL (140-400) 201 x10^3/uL (140-400) Neutrophils (%) (Auto) 84 % (31-73) Lymphocytes (%) (Auto) 10 % (24-48) Monocytes (%) (Auto) 6 % (0-9) Eosinophils (%) (Auto) 0 % (0-3) Basophils (%) (Auto) 1 % (0-3) Neutrophils # (Auto) 12.6 x10^3/uL (1.8-7.7) Lymphocytes # (Auto) 1.5 x10^3/uL (1.0-4.8) Monocytes # (Auto) 0.8 x10^3/uL (0.0-1.1) Eosinophils # (Auto) 0.0 x10^3/uL (0.0-0.7) Basophils # (Auto) 0.1 x10^3/uL (0.0-0.2) Segmented Neutrophils % 79 % (35-66) Lymphocytes % 13 % (24-48) Monocytes % 7 % (0-10) Basophils % 1 % (0-3) Platelet Estimate Adequate (ADEQUATE) Polychromasia Slight Anisocytosis Slight Schistocytes Occ Sodium Level 140 mmol/L (136-145) 139 mmol/L (136-145) Potassium Level 3.1 mmol/L (3.5-5.1) 4.1 mmol/L (3.5-5.1) Chloride Level 98 mmol/L (98-107) 99 mmol/L (98-107) Carbon Dioxide Level 25 mmol/L (21-32) 30 mmol/L (21-32) Anion Gap 17 (6-14) 10 (6-14) Blood Urea Nitrogen 15 mg/dL (7-20) 23 mg/dL (7-20) Creatinine 1.2 mg/dL (0.6-1.0) 1.6 mg/dL (0.6-1.0) Estimated GFR (Cockcroft-Gault) 56.4 40.5 BUN/Creatinine Ratio 13 (6-20) Glucose Level 188 mg/dL (70-99) 116 mg/dL (70-99) Calcium Level 11.2 mg/dL (8.5-10.1) 10.4 mg/dL (8.5-10.1) Magnesium Level 1.6 mg/dL (1.8-2.4) 3.5 mg/dL (1.8-2.4) Total Bilirubin 1.0 mg/dL (0.2-1.0) Aspartate Amino Transf (AST/SGOT) 20 U/L (15-37) Alanine Aminotransferase (ALT/SGPT) 19 U/L (14-59) Alkaline Phosphatase 87 U/L (46-116) Total Protein 10.3 g/dL (6.4-8.2) Albumin 4.8 g/dL (3.4-5.0) Albumin/Globulin Ratio 0.9 (1.0-1.7) Lipase 87 U/L (73-393) Brief Hospital Course Ms Rajput is a 54yo F w/ PMHx Anxiety, Depression, GERD, High Cholesterol, Hy pertension, PUD, Gastroparesis who presents to the ED complaining of 10 out of 10 mid abdominal pain with vomiting of that began at 6 AM this morning, though she notes she vomited yesterday as well and now it is grossly bloody. Patient denies any diarrhea. Denies any fever. She does note some confusion. Denies any urgency frequency dysuria. She does note calf pain and cramping that began this afternoon. Patient arrived in the ED requesting we put an IV in right away and give her something for pain and vomiting. She was writhing around the bed. Hemoglobin 15.7, Potassium of 3.1, patient was unable to take oral potassium replacement a nd mag level returned 1.6. Calcium 11.2. prominent T waves but no STEMI was identified normal sinus rhythm rate of 80 QTC 456 Blood pressure 224/134 over to the ED with a heart rate of 84. Patient has history of uncontrolled hypertension. Given labetalol IV, hydralazine IV, clonidine by mouth. Blood pressure 233/156. Given cardene gtt with some improvement. Called for admission for intractable nausea/vomiting and HTN emergency. BP has since come down to normal levels and the drip has been discontinued. Tra nsferred to floor. On further review she did have positive VMA and normetanephrine on 24 hour urine previously when I admitted on 04/08/19, did not complete her somatostatin scan. She has been hospitalized multiple times since with elevated BP and hypercalcemia. She is distraught today, wants to get home to take care of her daughter and find her grand-daughter she says was taken gail y. Concern for pheo/paraganglionoma - abnormal urine collection in 03/2019 A/P: Hypertensive emergency - admitted to ICU initially. Has had elevated normetanephrines previously, has not had completed a somatostatin scan Acute encephalopathy - she is aware she is confused, no focal neuro deficits. With her BP coming down she feels improved. Acute abdominal pain - uncertain etiology, known well to GI service, will consult Nausea and vomiting - intractable, will keep meds IV, zofran, compazine until able to take PO Hypokalemia - replace IV and po, check mag. Hypomagnesemia - will replace in AM Dehydration - from pain and nausea and poor PO intake, , IV fluid Hypercalcemia - 10.2 will give IVF. Monitor, check phos, vitamin D levels, pth Hyperglycemia - will monitor Leukocytosis - likely from vomiting and element of hemoconcentration PLAN - D/C today, will return for octreotide scan on 07/08-07/09/2019, likely will need surgical consultation after that. Greater than 30 minutes spent on d/c Discharge Information Condition at Discharge: Improved Follow Up: Weeks (1) Disposition/Orders: D/C to Home Scheduled Amlodipine Besylate (Amlodipine Besylate) 10 Mg Tablet, 10 MG PO DAILY, (Reported) Entered as Reported by: ALEXANDRA SNOWDEN on 12/01/16 1116 Last Action: Continued on 07/02/192121 by REGULO CUEVA MD Gabapentin (Gabapentin) 300 Mg Capsule, 300 MG PO TID, (Reported) Entered as Reported by: ALEXANDRA SNOWDEN on 12/01/16 1109 Last Action: Continued on 07/02/192121 by REGULO CUEVA MD Ondansetron (Zofran Odt) 4 Mg Tab.rapdis, 1 TAB SL Q8HRS, #15 Prescribed by: Tegan WORTHINGTON MD on 06/16/17 1322 Last Action: Continued on 07/02/192121 by REGULO CUEVA MD Ondansetron Hcl (Zofran) 4 Mg Tablet, 1 TAB PO Q6HRS for gi bleed, nausea, #60 Prescribed by: LISS DAVIS on 05/21/19 1421 Pantoprazole Sodium (Pantoprazole Sodium ) 40 Mg Tablet.dr, 40 MG PO DAILYAC for gerd, #60 Prescribed by: LISS DAVIS on 05/21/19 1421 Ranitidine Hcl (Ranitidine Hcl) 150 Mg Capsule, 1 CAP PO BID for stomach, #60 Ref 5 (Reported) Entered as Reported by: JACK AGUILAR on 06/04/19 1028 Scheduled PRN Cyclobenzaprine Hcl (Cyclobenzaprine Hcl) 10 Mg Tablet, 1 TAB PO PRN TID PRN for MUSCLE SPASMS, #30 (Reported) Entered as Reported by: CA GRANADOS on 05/19/17 1114 Last Action: Continued on 07/02/192121 by REGULO CUEVA MD Hydrocodone Bit/Acetaminophen (Hydrocodone-Apap 5-325 ) 1 Tab Tablet, 1 TAB PO PRN Q4HRS PRN for PAIN, #20 Prescribed by: LISS DAVIS on 05/21/19 1421 Last Action: Continued on 07/02/192121 by MD HAMMAD PLAZA CHRISTOPHER S MD Jul 04, 2019 10:32
[2019-07-04] MEDS ORDERED: AMLO10TA8 PO (10:34)
[2019-07-04 10:35] LABS: ALBUMIN 4.4 g/dL (3.4-5.0); CALCIUM 10.4 mg/dL (8.5-10.1); CREATININE 1.1 mg/dL (0.6-1.0); GFR 62.4; PHOSPHORUS 3.7 mg/dL (2.6-4.7); POTASSIUM 3.8 mmol/L (3.5-5.1)
[2019-07-04 11:00] VITALS: BP 146/105
--- NOTE | 2019-07-04 12:39 | NUR ---
Discharge Note: DANIELA MANUEL Discharge instructions and discharge home medications reviewed with Patient and a copy given. All questions have been answered and understanding verbalized. The following instructions and handouts were given: Discharge Instructions, Follow Up Outpatient Procedure, Prescriptions Discontinued lines and drains: PIV removed, Catheter intact. Patient discharged to Home with Self-Care via Private Vehicle
[2019-07-04 23:07] LABS: CALCIUM PTH 10.6 mg/dL (8.7-10.2); CREATININE PTH 1.59 mg/dL (0.57-1.00); PHOSPHORUS PTH 5.8 mg/dL (2.5-4.5); PTH INTACT 31 pg/mL (15-65)
[2019-08-01] MEDS ORDERED: ONDA4TAB12 PO (22:53)
== END 2019-07-04 12:42 | disposition home or self-care (01) | DRG 305 ==
LOC: ER 15:17 → 4 NORTH 16:28 → 1 WEST ICU 20:21 → 4 NORTH 07-03 15:15
PROVIDERS: ADMIT Internal Medicine; ATTEND Internal Medicine
DX: I16.1 Hypertensive emergency (principal); N17.9 Acute kidney failure, unspecified; G93.40 Encephalopathy, unspecified; K92.0 Hematemesis; I10 Essential (primary) hypertension; G89.29 Other chronic pain; F41.9 Anxiety disorder, unspecified; F32.9 Major depressive disorder, single episode, unspecified; K21.9 Gastro-esophageal reflux disease without esophagitis; E78.00 Pure hypercholesterolemia, unspecified; E78.5 Hyperlipidemia, unspecified; M06.9 Rheumatoid arthritis, unspecified; E87.6 Hypokalemia; E83.42 Hypomagnesemia; E86.0 Dehydration; E83.52 Hypercalcemia; R73.9 Hyperglycemia, unspecified; D72.829 Elevated white blood cell count, unspecified; Z87.11 Personal history of peptic ulcer disease; Z88.0 Allergy status to penicillin; Z83.3 Family history of diabetes mellitus; Z82.49 Family history of ischemic heart disease and other diseases of the circulatory system; Z91.19 Patient's noncompliance with other medical treatment and regimen
CPT/HCPCS: 36415; 80048; 80053; 80069; 81001; 82306; 83690; 83735; 83970; 85007; 85025; 85027; 96361; 96374; 96375; C9113; J0360; J2270; J2405; J3010; J3475; J3480; J3490; J7030; J7050; 99285-25; G0378

== ENCOUNTER 2019-07-15 12:52 | Inpatient (IN) | payer SELFPAY ==
[~2019-07-15] VITALS: Ht 170.2 cm; Wt 57.4 kg
[2019-07-15] MEDS: POTASSIUM CHLORIDE 10MEQ 100 ML IV SCH ×3 (02:00→22:23)
[2019-07-15] MEDS ORDERED: IV NORMAL SALINE 1000ML BAG 1,000 ML IV ONE ×2 (14:30→18:15)
[2019-07-15] MEDS ORDERED: FAMOTIDINE 20 MG/2 ML VIAL IVP ONE (14:30)
[2019-07-15] MEDS ORDERED: PROCHLORPERAZINE 10 MG/2 ML VIAL. IV ONE (14:30)
[2019-07-15] MEDS ORDERED: HALOPERIDOL LACTATE 5 MG/ML VIAL. IVP ONE (14:30)
[2019-07-15 15:39] LABS: BARBITURATES NEG (NEG); BENZODIAZEPINES NEG (NEG); CANNABINOIDS NEG (NEG); COCAINE NEG (NEG); METHADONE NEG (NEG); OPIATES NEG (NEG); PHENCYCLIDINE NEG (NEG)
[2019-07-15 15:40] LABS: AMPHETAMINE/METHAMPHETAMINE NEG (NEG)
[2019-07-15 15:51] LABS: BASO # 0.1 x10^3/uL (0.0-0.2); BASO % 1 % (0-3); EOS % 0 % (0-3); LYMPH # 1.3 x10^3/uL (1.0-4.8); LYMPH % 12 % (24-48); MEAN CORPUSCULAR HEMOGLOBIN 28 pg (25-35); MEAN CORPUSCULAR HGB CONC 33 g/dL (31-37); MEAN CORPUSCULAR VOLUME 86 fL (79-100); MONO # 0.5 x10^3/uL (0.0-1.1); MONO % 4 % (0-9); NEUT # 9.2 x10^3/uL (1.8-7.7); NEUT % 83 % (31-73); PLATELET COUNT 257 x10^3/uL (140-400); RED BLOOD COUNT 5.35 x10^6/uL (3.50-5.40); RED CELL DISTRIBUTION WIDTH 15.7 % (11.5-14.5); WHITE BLOOD COUNT 11.1 x10^3/uL (4.0-11.0)
[2019-07-15 16:14] LABS: CALCIUM 10.2 mg/dL (8.5-10.1); CREATININE 1.1 mg/dL (0.6-1.0); GFR 62.4; POTASSIUM 3.3 mmol/L (3.5-5.1)
[2019-07-15] MEDS ORDERED: MORPHINE SULFATE 10 MG/ML VIAL. IV ONE (16:15)
[2019-07-15 16:21] LABS: ALBUMIN 4.9 g/dL (3.4-5.0); ALBUMIN/GLOBULIN RATIO 1.1 (1.0-1.7); TOTAL BILIRUBIN 0.6 mg/dL (0.2-1.0); TOTAL PROTEIN 9.4 g/dL (6.4-8.2)
[2019-07-15] MEDS ORDERED: LABETALOL 20 MG/4 ML DISP.SYRIN. IVP ONE (17:30)
[2019-07-15] MEDS ORDERED: fentaNYL PF VIAL 100 MCG/2 ML VIAL IVP ONE (17:30)
--- NOTE | 2019-07-15 17:38 | PDOC1 ---
History and Physical Date of Admission Date of Admission DATE: 07/15/19 TIME: 17:37 Identification/Chief Complaint Chief Complaint Hematemesis Source Source: Patient History of Present Illness History of Present Illness Ms Rajput is a 54yo F w/ PMHx Anxiety, Depression, GERD, High Cholesterol, Hypertension, PUD, Gastroparesis who presents to the ED today complaining of 10 out of 10 mid abdominal pain with vomiting of that began at 4 AM this morning, though she notes she vomited yesterday as well and now it is grossly bloody. Patient denies any diarrhea. Denies any fever. She does note some confusion. Denies any urgency frequency dysuria. She does note calf pain and cramping that began this afternoon. She was writhing around the bed. Hemoglobin 15.7, Potassium of 3.2, patient was unable to take oral potassium replacement. Calcium 10.2. prominent T waves and ST changes in V4,5,6, but no STEMI was identified normal sinus rhythm rate of 80 QTC 456 Blood pressure 224/134 over to the ED with a heart rate of 84. Patient has history of uncontrolled hypertension. Given labetalol IV, hydralazine IV, clonidine by mouth. Blood pressure 233/156. Given labetalol 2nd dose with some improvement. Called for admission for intractable nausea/vomiting and HTN emergency. Her 07/09/19 INDIUM-111 OCTREOSCAN was negative for chest or abdominal abnormal uptake. Past Medical History Cardiovascular: HTN, Hyperlipidemia Pulmonary: No pertinent hx GI: GERD, Other Hepatobiliary: No pertinent hx Psych: Anxiety, Depression Rheumatologic: Rheumatoid arthritis Infectious disease: No pertinent hx Renal/: No pertinent hx Endocrine: No pertinent hx Past Surgical History Past Surgical History: Other Family History Family History: Diabetes, Heart Disease Social History Smoke: Quit ALCOHOL: none Drugs: Marijuana Current Medications Current Medications Current Medications Prochlorperazine Edisylate (Compazine) 10 mg 1X ONCE IV Last administered on 07/15/19at 15:22; Start 07/15/19 at 14:30; Stop 07/15/19 at 14:32; Status DC Haloperidol Lactate (Haldol Inj) 5 mg 1X ONCE IVP Last administered on 07/15/19at 15:22; Start 07/15/19 at 14:30; Stop 07/15/19 at 14:32; Status DC Famotidine (Pepcid Vial) 20 mg 1X ONCE IVP Last administered on 07/15/19at 15:22; Start 07/15/19 at 14:30; Stop 07/15/19 at 14:32; Status DC Sodium Chloride 1,000 ml @ 1,000 mls/hr 1X ONCE IV Last administered on 07/15/19at 15:21; Start 07/15/19 at 14:30; Stop 07/15/19 at 15:29; Status DC Morphine Sulfate (Morphine Sulfate) 5 mg 1X ONCE IV Last administered on 07/15/19at 16:33; Start 07/15/19 at 16:15; Stop 07/15/19 at 16:16; Status DC Labetalol HCl (Normodyne Iv Push) 20 mg 1X ONCE IVP ; Start 07/15/19 at 17:30; Stop 07/15/19 at 17:31; Status DC Fentanyl Citrate (Fentanyl 2ml Vial) 50 mcg 1X ONCE IVP ; Start 07/15/19 at 17:30; Stop 07/15/19 at 17:31; Status DC Active Scripts Active Amlodipine Besylate 10 Mg Tablet 10 Mg PO DAILY 30 Days Pantoprazole Sodium (Pantoprazole Sodium) 40 Mg Tablet.dr 40 Mg PO DAILYAC Zofran (Ondansetron Hcl) 4 Mg Tablet 1 Tab PO Q6HRS Hydrocodone-Apap 5-325 (Hydrocodone Bit/Acetaminophen) 1 Tab Tablet 1 Tab PO PRN Q4HRS PRN Zofran Odt (Ondansetron) 4 Mg Tab.rapdis 1 Tab SL Q8HRS Reported Ranitidine Hcl 150 Mg Capsule 1 Cap PO BID Cyclobenzaprine Hcl 10 Mg Tablet 1 Tab PO PRN TID PRN Gabapentin 300 Mg Capsule 300 Mg PO TID Allergies Allergies: Coded Allergies: Penicillins (Verified Allergy, Intermediate, HAS TOLERATED AMOXICILLIN, 06/04/19) ROS General: YES: Fatigue, Malaise, Appetite; No: Chills, Night Sweats, Other PSYCHOLOGICAL ROS: No: Anxiety, Behavioral Disorder, Concentration difficultie, Decreased libido, Depression, Disorientation, Hallucinations, Hostility, Irritablity, Memory difficulties, Mood Swings, Obsessive thoughts, Physical abuse, Sexual abuse, Sleep disturbances, Suicidal ideation, Other Eyes: No Blurry vision, No Decreased vision, No Double vision, No Dry eyes, No Excessive tearing, No Eye Pain, No Itchy Eyes, No Loss of vision, No Photophobia, No Scotomata, No Uses contacts, No Uses glasses, No Other HEENT: No: Heacaches, Visual Changes, Hearing change, Nasal congestion, Nasal discharge, Oral lesions, Sinus pain, Sore Throat, Epistaxis, Sneezing, Snoring, Tinnitus, Vertigo, Vocal changes, Other ALLERGY AND IMMUNOLOGY: No: Hives, Insect Bite Sensitivity, Itchy/Watery Eyes, Nasal Congestion, Post Nasal Drip, Seasonal Allergies, Other Hematological and Lymphatic: YES: Bleeding Problems; No: Blood Clots, Blood Transfusions, Brusing, Night Sweats, Pallor, Swollen Lymph Nodes, Other ENDOCRINE: No: Breast Changes, Galactorrhea, Hair Pattern Changes, Hot Flashes, Malaise/lethargy, Mood Swings, Palpitations, Polydipsia/polyuria, Skin Changes, Temperature Intolerance, Unexpected Weight Changes, Other Breast: No New/Changing Breast Lumps, No Nipple changes, No Nipple discharge, No Other Respiratory: No: Cough, Hemoptysis, Orthopnea, Pleuritic Pain, Shortness of breath, SOB with excertion, Sputum Changes, Stridor, Tachypnea, Wheezing, Other Cardiovascular: No Chest Pain, No Palpitations, No Orthopnea, No Paroxysmal Noc. Dyspnea, No Edema, No Lt Headedness, No Other Gastrointestinal: Yes Nausea, Yes Vomiting, Yes Abdominal Pain, Yes Melena; No Diarrhea, No Constipation, No Hematochezia, No Other Genitourinary: No Dysuria, No Frequency, No Incontinence, No Hematuria, No Retention, No Discharge, No Urgency, No Pain, No Flank Pain, No Other, No , No , No , No , No , No , No Musculoskeletal: No Gait Disturbance, No Joint Pain, No Joint Stiffness, No Joint Swelling, No Muscle Pain, No Muscular Weakness, No Pain In:, No Swelling In:, No Other Neurological: Yes Confusion; No Behavorial Changes, No Bowel/Bladder ControlChng, No Dizziness, No Gait Disturbance, No Headaches, No Impaired Coord/balance, No Memory Loss, No Numbness/Tingling, No Seizures, No Speech Problems, No Tremors, No Visual Changes, No Weakness, No Other Skin: No Dry Skin, No Eczema, No Hair Changes, No Lumps, No Mole Changes, No Mottling, No Nail Changes, No Pruritus, No Rash, No Skin Lesion Changes, No Other, No Acne Physical Exam General: Alert, Cooperative, moderate distress HEENT: Atraumatic, PERRLA, EOMI, Mucous membr. moist/pink Lungs: Clear to auscultation, Normal air movement Heart: S1S2, RRR, no thrills, no rubs Abdomen: Normal bowel sounds, Soft, No hepatosplenomegaly, No masses, Other (diffuse tenderness) Rectal Exam: not examined Extremities: No clubbing, No cyanosis, No edema, Normal pulses, No tenderness/swelling Skin: No rashes, No breakdown, No significant lesion Neuro: Normal gait, Normal speech, Strength at 5/5 X4 ext, Normal tone, Sensation intact, Cranial nerves 3-12 NL, Reflexes 2+ Psych/Mental Status: Mental status NL, Mood NL Vitals Vitals Vital Signs Date Time Temp Pulse Resp B/P (MAP) Pulse Ox O2 Delivery O2 Flow Rate FiO2 07/15/19 17:05 14 98 Room Air 07/15/19 15:40 99 211/115 (147) 07/15/19 14:03 97.7 97.7 Labs Labs Laboratory Tests Test 07/15/19 15:14 07/15/19 15:30 Urine Opiates Screen Neg (NEG) Urine Methadone Screen Neg (NEG) Urine Barbiturates Neg (NEG) Urine Phencyclidine Screen Neg (NEG) Urine Amphetamine/Methamphetamine Neg (NEG) Urine Benzodiazepines Screen Neg (NEG) Urine Cocaine Screen Neg (NEG) Urine Cannabinoids Screen Neg (NEG) Urine Ethyl Alcohol Neg (NEG) White Blood Count 11.1 x10^3/uL (4.0-11.0) Red Blood Count 5.35 x10^6/uL (3.50-5.40) Hemoglobin 15.0 g/dL (12.0-15.5) Hematocrit 46.0 % (36.0-47.0) Mean Corpuscular Volume 86 fL (79-100) Mean Corpuscular Hemoglobin 28 pg (25-35) Mean Corpuscular Hemoglobin Concent 33 g/dL (31-37) Red Cell Distribution Width 15.7 % (11.5-14.5) Platelet Count 257 x10^3/uL (140-400) Neutrophils (%) (Auto) 83 % (31-73) Lymphocytes (%) (Auto) 12 % (24-48) Monocytes (%) (Auto) 4 % (0-9) Eosinophils (%) (Auto) 0 % (0-3) Basophils (%) (Auto) 1 % (0-3) Neutrophils # (Auto) 9.2 x10^3/uL (1.8-7.7) Lymphocytes # (Auto) 1.3 x10^3/uL (1.0-4.8) Monocytes # (Auto) 0.5 x10^3/uL (0.0-1.1) Eosinophils # (Auto) 0.0 x10^3/uL (0.0-0.7) Basophils # (Auto) 0.1 x10^3/uL (0.0-0.2) Sodium Level 142 mmol/L (136-145) Potassium Level 3.3 mmol/L (3.5-5.1) Chloride Level 101 mmol/L (98-107) Carbon Dioxide Level 21 mmol/L (21-32) Anion Gap 20 (6-14) Blood Urea Nitrogen 20 mg/dL (7-20) Creatinine 1.1 mg/dL (0.6-1.0) Estimated GFR (Cockcroft-Gault) 62.4 BUN/Creatinine Ratio 18 (6-20) Glucose Level 157 mg/dL (70-99) Calcium Level 10.2 mg/dL (8.5-10.1) Total Bilirubin 0.6 mg/dL (0.2-1.0) Aspartate Amino Transf (AST/SGOT) 19 U/L (15-37) Alanine Aminotransferase (ALT/SGPT) 15 U/L (14-59) Alkaline Phosphatase 78 U/L (46-116) Troponin I Quantitative < 0.017 ng/mL (0.000-0.055) Total Protein 9.4 g/dL (6.4-8.2) Albumin 4.9 g/dL (3.4-5.0) Albumin/Globulin Ratio 1.1 (1.0-1.7) Lipase 84 U/L (73-393) Ethyl Alcohol Level < 10 mg/dL (0-10) Laboratory Tests Test 07/15/19 15:14 07/15/19 15:30 Urine Opiates Screen Neg (NEG) Urine Methadone Screen Neg (NEG) Urine Barbiturates Neg (NEG) Urine Phencyclidine Screen Neg (NEG) Urine Amphetamine/Methamphetamine Neg (NEG) Urine Benzodiazepines Screen Neg (NEG) Urine Cocaine Screen Neg (NEG) Urine Cannabinoids Screen Neg (NEG) Urine Ethyl Alcohol Neg (NEG) White Blood Count 11.1 x10^3/uL (4.0-11.0) Red Blood Count 5.35 x10^6/uL (3.50-5.40) Hemoglobin 15.0 g/dL (12.0-15.5) Hematocrit 46.0 % (36.0-47.0) Mean Corpuscular Volume 86 fL (79-100) Mean Corpuscular Hemoglobin 28 pg (25-35) Mean Corpuscular Hemoglobin Concent 33 g/dL (31-37) Red Cell Distribution Width 15.7 % (11.5-14.5) Platelet Count 257 x10^3/uL (140-400) Neutrophils (%) (Auto) 83 % (31-73) Lymphocytes (%) (Auto) 12 % (24-48) Monocytes (%) (Auto) 4 % (0-9) Eosinophils (%) (Auto) 0 % (0-3) Basophils (%) (Auto) 1 % (0-3) Neutrophils # (Auto) 9.2 x10^3/uL (1.8-7.7) Lymphocytes # (Auto) 1.3 x10^3/uL (1.0-4.8) Monocytes # (Auto) 0.5 x10^3/uL (0.0-1.1) Eosinophils # (Auto) 0.0 x10^3/uL (0.0-0.7) Basophils # (Auto) 0.1 x10^3/uL (0.0-0.2) Sodium Level 142 mmol/L (136-145) Potassium Level 3.3 mmol/L (3.5-5.1) Chloride Level 101 mmol/L (98-107) Carbon Dioxide Level 21 mmol/L (21-32) Anion Gap 20 (6-14) Blood Urea Nitrogen 20 mg/dL (7-20) Creatinine 1.1 mg/dL (0.6-1.0) Estimated GFR (Cockcroft-Gault) 62.4 BUN/Creatinine Ratio 18 (6-20) Glucose Level 157 mg/dL (70-99) Calcium Level 10.2 mg/dL (8.5-10.1) Total Bilirubin 0.6 mg/dL (0.2-1.0) Aspartate Amino Transf (AST/SGOT) 19 U/L (15-37) Alanine Aminotransferase (ALT/SGPT) 15 U/L (14-59) Alkaline Phosphatase 78 U/L (46-116) Troponin I Quantitative < 0.017 ng/mL (0.000-0.055) Total Protein 9.4 g/dL (6.4-8.2) Albumin 4.9 g/dL (3.4-5.0) Albumin/Globulin Ratio 1.1 (1.0-1.7) Lipase 84 U/L (73-393) Ethyl Alcohol Level < 10 mg/dL (0-10) VTE Prophylaxis Ordered VTE Prophylaxis Devices: Yes VTE Pharmacological Prophylaxi: Contraindicated Assessment/Plan Assessment/Plan A/P: Hypertensive emergency - 255/138. admit to telemetry, Labetalol prn. Has had elevated normetanephrines previously, has negative somatostatin scan Acute encephalopathy - she is aware she is confused, no focal neuro deficits. With her BP coming down she feels improved. Acute abdominal pain - uncertain etiology, known well to GI service, will consult Nausea and vomiting - intractable, will keep meds IV, zofran, compazine until able to take PO Hypokalemia - replace IV and po, check mag. Hypomagnesemia - will replace in AM if low again Dehydration - from pain and nausea and poor PO intake, , IV fluid Hypercalcemia - 10.2 will give IVF. Monitor, check phos, vitamin D levels, pth was WNL. Will give vitamin D Hyperglycemia - will monitor Leukocytosis - likely from vomiting and element of hemoconcentration FEN - General diet PPX - GI Bleed FULL CODE Inpatient CVC for hypertensive emergency, likely 2 midnights. REGULO CUEVA MD Jul 15, 2019 17:38
[2019-07-15] MEDS ORDERED: LABETALOL 20 MG/4 ML DISP.SYRIN. IVP PRN (18:15)
[2019-07-15] MEDS ORDERED: ONDANSETRON PF 4 MG/2 ML VIAL. IV PRN ×2 (18:15→20:45)
[2019-07-15] MEDS ORDERED: PANTOPRAZOLE SODIUM IV DRIP 80 MG in IV NORMAL SALINE 100ML 100 ML IV SCH (18:15)
--- NOTE | 2019-07-15 18:22 | PHYS DOC ---
Past Medical History Past Medical History: Hypertension, Other Additional Past Medical Histor: stomach ulcers, CYCLIC VOMITING Past Surgical History: No Surgical History Additional Past Surgical Histo: foot surgery, explor. abd sx Additional Information: PT REPORTS SHE QUIT SMOKING APPROX 2 WKS AGO Alcohol Use: None Drug Use: None Adult General Chief Complaint Chief Complaint: GI PROBLEM HPI HPI Patient is a 54 year old female with history of upper GI bleed, uncontrolled hypertension, hematemesis, who presents to the ED today complaining of vomiting blood and a sharp constant 10 out of 10 periumbilical abdominal pain that began this morning. Patient states she has been told she has a stomach ulcer. She states she is supposed to see a specialist but has not made arrangements to be seen. Denies any diarrhea. Denies any chest pain or shortness of breath. Review of Systems Review of Systems Constitutional: Denies fever or chills [] Eyes: Denies change in visual acuity, redness, or eye pain [] HENT: Denies nasal congestion or sore throat [] Respiratory: Denies cough or shortness of breath [] Cardiovascular: No additional information not addressed in HPI [] GI: Reports hematemesis and abdominal pain, denies bloody stools or diarrhea [] : Denies dysuria or hematuria [] Musculoskeletal: Denies back pain or joint pain [] Integument: Denies rash or skin lesions [] Neurologic: Denies headache, focal weakness or sensory changes [] All other systems were reviewed and found to be within normal limits, except as documented in this note. Current Medications Current Medications Current Medications Medications (Trade) Dose Ordered Sig/Emile Start Time Stop Time Status Last Admin Dose Admin Famotidine (Pepcid Vial) 20 mg 1X ONCE 07/15/19 14:30 07/15/19 14:32 DC 07/15/19 15:22 20 MG Fentanyl Citrate (Fentanyl 2ml Vial) 50 mcg 1X ONCE 07/15/19 17:30 07/15/19 17:31 DC 07/15/19 17:53 50 MCG Haloperidol Lactate (Haldol Inj) 5 mg 1X ONCE 07/15/19 14:30 07/15/19 14:32 DC 07/15/19 15:22 5 MG Labetalol HCl (Normodyne Iv Push) 10 mg Q6HRS PRN 07/15/19 18:15 Morphine Sulfate (Morphine Sulfate) 4 mg PRN Q2HR PRN 07/15/19 18:15 07/16/19 18:14 Ondansetron HCl (Zofran) 4 mg PRN Q8HRS PRN 07/15/19 18:15 07/16/19 18:14 Pantoprazole Sodium 80 mg/ Sodium Chloride 100 ml @ 10 mls/hr Q10H 07/15/19 18:15 Prochlorperazine Edisylate (Compazine) 10 mg 1X ONCE 07/15/19 14:30 07/15/19 14:32 DC 07/15/19 15:22 10 MG Sodium Chloride 1,000 ml @ 75 mls/hr 1X ONCE 07/15/19 18:15 07/16/19 07:34 Allergies Allergies Allergies Coded Allergies Type Severity Reaction Last Updated Verified Penicillins Allergy Intermediate HAS TOLERATED AMOXICILLIN 06/04/19 Yes Physical Exam Physical Exam Constitutional: Denies hearing patient, no acute distress, non-toxic appearance. [] HENT: Normocephalic, atraumatic, bilateral external ears normal, oropharynx moist, no oral exudates, nose normal. [] Eyes: PERRLA, EOMI, conjunctiva normal, no discharge. [] Neck: Normal range of motion, no tenderness, supple, no stridor. [] Cardiovascular:Heart rate regular rhythm, no murmur [] Lungs & Thorax: Bilateral breath sounds clear to auscultation [] Abdomen: Patient is actively vomiting in the ED. Diffuse tenderness throughout the abdomen. Bowel sounds normal, soft, no masses, no pulsatile masses. Skin: Warm, dry, no erythema, no rash. [] Back: No tenderness, no CVA tenderness. [] Extremities: No tenderness, no cyanosis, no clubbing, ROM intact, no edema. [] Neurologic: Alert and oriented X 3, normal motor function, normal sensory function, no focal deficits noted. [] Psychologic: Patient is restless, thrashing around the bed. Current Patient Data Vital Signs Vital Signs Date Time Temp Pulse Resp B/P (MAP) Pulse Ox O2 Delivery O2 Flow Rate FiO2 07/15/19 17:53 16 98 07/15/19 17:30 113 131/89 07/15/19 17:17 Room Air 07/15/19 14:03 97.7 97.7 Lab Values Laboratory Tests Test 07/15/19 15:14 07/15/19 15:30 Urine Opiates Screen Neg (NEG) Urine Methadone Screen Neg (NEG) Urine Barbiturates Neg (NEG) Urine Phencyclidine Screen Neg (NEG) Urine Amphetamine/Methamphetamine Neg (NEG) Urine Benzodiazepines Screen Neg (NEG) Urine Cocaine Screen Neg (NEG) Urine Cannabinoids Screen Neg (NEG) Urine Ethyl Alcohol Neg (NEG) White Blood Count 11.1 x10^3/uL (4.0-11.0) H Red Blood Count 5.35 x10^6/uL (3.50-5.40) Hemoglobin 15.0 g/dL (12.0-15.5) Hematocrit 46.0 % (36.0-47.0) Mean Corpuscular Volume 86 fL (79-100) Mean Corpuscular Hemoglobin 28 pg (25-35) Mean Corpuscular Hemoglobin Concent 33 g/dL (31-37) Red Cell Distribution Width 15.7 % (11.5-14.5) H Platelet Count 257 x10^3/uL (140-400) Neutrophils (%) (Auto) 83 % (31-73) H Lymphocytes (%) (Auto) 12 % (24-48) L Monocytes (%) (Auto) 4 % (0-9) Eosinophils (%) (Auto) 0 % (0-3) Basophils (%) (Auto) 1 % (0-3) Neutrophils # (Auto) 9.2 x10^3/uL (1.8-7.7) H Lymphocytes # (Auto) 1.3 x10^3/uL (1.0-4.8) Monocytes # (Auto) 0.5 x10^3/uL (0.0-1.1) Eosinophils # (Auto) 0.0 x10^3/uL (0.0-0.7) Basophils # (Auto) 0.1 x10^3/uL (0.0-0.2) Sodium Level 142 mmol/L (136-145) Potassium Level 3.3 mmol/L (3.5-5.1) L Chloride Level 101 mmol/L (98-107) Carbon Dioxide Level 21 mmol/L (21-32) Anion Gap 20 (6-14) H Blood Urea Nitrogen 20 mg/dL (7-20) Creatinine 1.1 mg/dL (0.6-1.0) H Estimated GFR (Cockcroft-Gault) 62.4 BUN/Creatinine Ratio 18 (6-20) Glucose Level 157 mg/dL (70-99) H Calcium Level 10.2 mg/dL (8.5-10.1) H Total Bilirubin 0.6 mg/dL (0.2-1.0) Aspartate Amino Transferase (AST) 19 U/L (15-37) Alanine Aminotransferase (ALT) 15 U/L (14-59) Alkaline Phosphatase 78 U/L (46-116) Troponin I Quantitative < 0.017 ng/mL (0.000-0.055) Total Protein 9.4 g/dL (6.4-8.2) H Albumin 4.9 g/dL (3.4-5.0) Albumin/Globulin Ratio 1.1 (1.0-1.7) Lipase 84 U/L (73-393) Ethyl Alcohol Level < 10 mg/dL (0-10) Laboratory Tests 07/15/19 15:30 Laboratory Tests 07/15/19 15:30 EKG EKG [address] Leslie sinus tachycardia with non specific ST elevations on V4, V5, V6, no STEMI[] Radiology/Procedures Radiology/Procedures [] Course & Med Decision Making Course & Med Decision Making Pertinent Labs and Imaging studies reviewed. (See chart for details) This is a 54-year-old female patient well known to this ED presenting today for hematemesis that began this morning. Patient arrives in the ED vomiting. CBC with a WBC of 11.1, CMP with potassium of 3.3, calcium 10.2, creatinine 1.1, BUN is normal, glucose 157, anion gap is 20. Blood pressure was 255/138, labetalol was ordered. Patient was given IV fluid as well as famotidine. Spoke with Dr. Hua who accepted patient for admission Routine consult placed GI, admitted with Protonix. Tila Disclaimer Dragon Disclaimer This electronic medical record was generated, in whole or in part, using a voice recognition dictation system. 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
[2019-07-15 19:35] VITALS: BP 134/90
--- NOTE | 2019-07-15 19:45 | NUR ---
The patient, DANIELA MANUEL, 54 y/o, F admitted by REGULO CUEVA MD, was given written information regarding hospital policies, unit procedures and contact persons. went over pt,s meds se said she was just here. explained awake overnight monitor. oriented pt tp the celestino and the unit Valuables were checked and documented in emr. admit book given, cafeteria book explained and the medication pamplet explained lcrn
[2019-07-15] MEDS ORDERED: CYCLOBENZAPRINE 10 MG TABLET. PO PRN (20:45)
[2019-07-15] MEDS: GABAPENTIN 300 MG CAPSULE. PO SCH (21:00)
[2019-07-15] MEDS ORDERED: ONDANSETRON ODT 4 MG TAB.RAPDIS. PO SCH (22:00)
[2019-07-15 22:45] VITALS: BP 112/78
[2019-07-15] MEDS: MORPHINE SULFATE 4 MG/ML VIAL. IV PRN (23:49)
[2019-07-16 02:45] VITALS: BP 111/81
--- NOTE | 2019-07-16 06:05 | EKG ---
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
[2019-07-16 07:00] VITALS: BP 121/78
--- NOTE | 2019-07-16 08:21 | PDOC ---
PROGRESS NOTES Chief Complaint Chief Complaint A/P: Hypertensive emergency - 255/138. admit to telemetry, Labetalol prn. Has had elevated normetanephrines previously, has negative somatostatin scan Acute encephalopathy - she is aware she is confused, no focal neuro deficits. With her BP coming down she feels improved. Acute abdominal pain - uncertain etiology, known well to GI service, will consult Nausea and vomiting - intractable, will keep meds IV, zofran, compazine until able to take PO Hypokalemia - replace IV and po, check mag. Hypomagnesemia - will replace in AM if low again Dehydration - from pain and nausea and poor PO intake, , IV fluid Hypercalcemia - 10.2 will give IVF. Monitor, check phos, vitamin D levels, pth was WNL. Will give vitamin D Hyperglycemia - will monitor Leukocytosis - likely from vomiting and element of hemoconcentration FEN - General diet PPX - GI Bleed FULL CODE Inpatient CVC for hypertensive emergency, likely 2 midnights. History of Present Illness History of Present Illness Ms Rajput is a 54yo F w/ PMHx Anxiety, Depression, GERD, High Cholesterol, Hypertension, PUD, Gastroparesis who presents to the ED today complaining of 10 out of 10 mid abdominal pain with vomiting of that began at 4 AM this morning, though she notes she vomited yesterday as well and now it is grossly bloody. Patient denies any diarrhea. Denies any fever. She does note some confusion. Denies any urgency frequency dysuria. She does note calf pain and cramping that began this afternoon. She was writhing around the bed. Hemoglobin 15.7, Potassium of 3.2, patient was unable to take oral potassium replacement. Calcium 10.2. prominent T waves and ST changes in V4,5,6, but no STEMI was identified normal sinus rhythm rate of 80 QTC 456 Blood pressure 224/134 over to the ED with a heart rate of 84. Patient has histo ry of uncontrolled hypertension. Given labetalol IV, hydralazine IV, clonidine by mouth. Blood pressure 233/156. Given labetalol 2nd dose with some improvement. Called for admission for intractable nausea/vomiting and HTN emergency. Her 07/09/19 INDIUM-111 OCTREOSCAN was negative for chest or abdominal abnormal uptake. BP improved somewhat overnight. Still feeling too nauseated to take any PO. Plan for HIDA scan and repeat urine catecholamines Vitals Vitals Vital Signs Date Time Temp Pulse Resp B/P (MAP) Pulse Ox O2 Delivery O2 Flow Rate FiO2 07/16/19 07:00 98.9 85 16 121/78 (92) 100 Room Air 98.9 Physical Exam General: Alert, Cooperative, moderate distress Lungs: Clear Abdomen: Normal bowel sounds, Soft, No hepatosplenomegaly, No masses, Other (diffuse tenderness) Extremities: No clubbing, No cyanosis, No edema, Normal pulses, No tenderness/swelling Skin: No rashes, No breakdown, No significant lesion Labs LABS Laboratory Tests Test 07/15/19 15:14 07/15/19 15:30 Urine Opiates Screen Neg (NEG) Urine Methadone Screen Neg (NEG) Urine Barbiturates Neg (NEG) Urine Phencyclidine Screen Neg (NEG) Urine Amphetamine/Methamphetamine Neg (NEG) Urine Benzodiazepines Screen Neg (NEG) Urine Cocaine Screen Neg (NEG) Urine Cannabinoids Screen Neg (NEG) Urine Ethyl Alcohol Neg (NEG) White Blood Count 11.1 x10^3/uL (4.0-11.0) Red Blood Count 5.35 x10^6/uL (3.50-5.40) Hemoglobin 15.0 g/dL (12.0-15.5) Hematocrit 46.0 % (36.0-47.0) Mean Corpuscular Volume 86 fL (79-100) Mean Corpuscular Hemoglobin 28 pg (25-35) Mean Corpuscular Hemoglobin Concent 33 g/dL (31-37) Red Cell Distribution Width 15.7 % (11.5-14.5) Platelet Count 257 x10^3/uL (140-400) Neutrophils (%) (Auto) 83 % (31-73) Lymphocytes (%) (Auto) 12 % (24-48) Monocytes (%) (Auto) 4 % (0-9) Eosinophils (%) (Auto) 0 % (0-3) Basophils (%) (Auto) 1 % (0-3) Neutrophils # (Auto) 9.2 x10^3/uL (1.8-7.7) Lymphocytes # (Auto) 1.3 x10^3/uL (1.0-4.8) Monocytes # (Auto) 0.5 x10^3/uL (0.0-1.1) Eosinophils # (Auto) 0.0 x10^3/uL (0.0-0.7) Basophils # (Auto) 0.1 x10^3/uL (0.0-0.2) Sodium Level 142 mmol/L (136-145) Potassium Level 3.3 mmol/L (3.5-5.1) Chloride Level 101 mmol/L (98-107) Carbon Dioxide Level 21 mmol/L (21-32) Anion Gap 20 (6-14) Blood Urea Nitrogen 20 mg/dL (7-20) Creatinine 1.1 mg/dL (0.6-1.0) Estimated GFR (Cockcroft-Gault) 62.4 BUN/Creatinine Ratio 18 (6-20) Glucose Level 157 mg/dL (70-99) Calcium Level 10.2 mg/dL (8.5-10.1) Magnesium Level 1.5 mg/dL (1.8-2.4) Total Bilirubin 0.6 mg/dL (0.2-1.0) Aspartate Amino Transf (AST/SGOT) 19 U/L (15-37) Alanine Aminotransferase (ALT/SGPT) 15 U/L (14-59) Alkaline Phosphatase 78 U/L (46-116) Troponin I Quantitative < 0.017 ng/mL (0.000-0.055) Total Protein 9.4 g/dL (6.4-8.2) Albumin 4.9 g/dL (3.4-5.0) Albumin/Globulin Ratio 1.1 (1.0-1.7) Lipase 84 U/L (73-393) Ethyl Alcohol Level < 10 mg/dL (0-10) Assessment and Plan Assessmemt and Plan Problems Medical Problems: (1) Accelerated hypertension Status: Acute (2) Hematemesis Status: Acute Comment Review of Relevant I have reviewed the following items starr (where applicable) has been applied. Labs Laboratory Tests Test 07/15/19 15:14 07/15/19 15:30 Urine Opiates Screen Neg (NEG) Urine Methadone Screen Neg (NEG) Urine Barbiturates Neg (NEG) Urine Phencyclidine Screen Neg (NEG) Urine Amphetamine/Methamphetamine Neg (NEG) Urine Benzodiazepines Screen Neg (NEG) Urine Cocaine Screen Neg (NEG) Urine Cannabinoids Screen Neg (NEG) Urine Ethyl Alcohol Neg (NEG) White Blood Count 11.1 x10^3/uL (4.0-11.0) Red Blood Count 5.35 x10^6/uL (3.50-5.40) Hemoglobin 15.0 g/dL (12.0-15.5) Hematocrit 46.0 % (36.0-47.0) Mean Corpuscular Volume 86 fL (79-100) Mean Corpuscular Hemoglobin 28 pg (25-35) Mean Corpuscular Hemoglobin Concent 33 g/dL (31-37) Red Cell Distribution Width 15.7 % (11.5-14.5) Platelet Count 257 x10^3/uL (140-400) Neutrophils (%) (Auto) 83 % (31-73) Lymphocytes (%) (Auto) 12 % (24-48) Monocytes (%) (Auto) 4 % (0-9) Eosinophils (%) (Auto) 0 % (0-3) Basophils (%) (Auto) 1 % (0-3) Neutrophils # (Auto) 9.2 x10^3/uL (1.8-7.7) Lymphocytes # (Auto) 1.3 x10^3/uL (1.0-4.8) Monocytes # (Auto) 0.5 x10^3/uL (0.0-1.1) Eosinophils # (Auto) 0.0 x10^3/uL (0.0-0.7) Basophils # (Auto) 0.1 x10^3/uL (0.0-0.2) Sodium Level 142 mmol/L (136-145) Potassium Level 3.3 mmol/L (3.5-5.1) Chloride Level 101 mmol/L (98-107) Carbon Dioxide Level 21 mmol/L (21-32) Anion Gap 20 (6-14) Blood Urea Nitrogen 20 mg/dL (7-20) Creatinine 1.1 mg/dL (0.6-1.0) Estimated GFR (Cockcroft-Gault) 62.4 BUN/Creatinine Ratio 18 (6-20) Glucose Level 157 mg/dL (70-99) Calcium Level 10.2 mg/dL (8.5-10.1) Magnesium Level 1.5 mg/dL (1.8-2.4) Total Bilirubin 0.6 mg/dL (0.2-1.0) Aspartate Amino Transf (AST/SGOT) 19 U/L (15-37) Alanine Aminotransferase (ALT/SGPT) 15 U/L (14-59) Alkaline Phosphatase 78 U/L (46-116) Troponin I Quantitative < 0.017 ng/mL (0.000-0.055) Total Protein 9.4 g/dL (6.4-8.2) Albumin 4.9 g/dL (3.4-5.0) Albumin/Globulin Ratio 1.1 (1.0-1.7) Lipase 84 U/L (73-393) Ethyl Alcohol Level < 10 mg/dL (0-10) Laboratory Tests Test 07/15/19 15:14 07/15/19 15:30 Urine Opiates Screen Neg (NEG) Urine Methadone Screen Neg (NEG) Urine Barbiturates Neg (NEG) Urine Phencyclidine Screen Neg (NEG) Urine Amphetamine/Methamphetamine Neg (NEG) Urine Benzodiazepines Screen Neg (NEG) Urine Cocaine Screen Neg (NEG) Urine Cannabinoids Screen Neg (NEG) Urine Ethyl Alcohol Neg (NEG) White Blood Count 11.1 x10^3/uL (4.0-11.0) Red Blood Count 5.35 x10^6/uL (3.50-5.40) Hemoglobin 15.0 g/dL (12.0-15.5) Hematocrit 46.0 % (36.0-47.0) Mean Corpuscular Volume 86 fL (79-100) Mean Corpuscular Hemoglobin 28 pg (25-35) Mean Corpuscular Hemoglobin Concent 33 g/dL (31-37) Red Cell Distribution Width 15.7 % (11.5-14.5) Platelet Count 257 x10^3/uL (140-400) Neutrophils (%) (Auto) 83 % (31-73) Lymphocytes (%) (Auto) 12 % (24-48) Monocytes (%) (Auto) 4 % (0-9) Eosinophils (%) (Auto) 0 % (0-3) Basophils (%) (Auto) 1 % (0-3) Neutrophils # (Auto) 9.2 x10^3/uL (1.8-7.7) Lymphocytes # (Auto) 1.3 x10^3/uL (1.0-4.8) Monocytes # (Auto) 0.5 x10^3/uL (0.0-1.1) Eosinophils # (Auto) 0.0 x10^3/uL (0.0-0.7) Basophils # (Auto) 0.1 x10^3/uL (0.0-0.2) Sodium Level 142 mmol/L (136-145) Potassium Level 3.3 mmol/L (3.5-5.1) Chloride Level 101 mmol/L (98-107) Carbon Dioxide Level 21 mmol/L (21-32) Anion Gap 20 (6-14) Blood Urea Nitrogen 20 mg/dL (7-20) Creatinine 1.1 mg/dL (0.6-1.0) Estimated GFR (Cockcroft-Gault) 62.4 BUN/Creatinine Ratio 18 (6-20) Glucose Level 157 mg/dL (70-99) Calcium Level 10.2 mg/dL (8.5-10.1) Magnesium Level 1.5 mg/dL (1.8-2.4) Total Bilirubin 0.6 mg/dL (0.2-1.0) Aspartate Amino Transf (AST/SGOT) 19 U/L (15-37) Alanine Aminotransferase (ALT/SGPT) 15 U/L (14-59) Alkaline Phosphatase 78 U/L (46-116) Troponin I Quantitative < 0.017 ng/mL (0.000-0.055) Total Protein 9.4 g/dL (6.4-8.2) Albumin 4.9 g/dL (3.4-5.0) Albumin/Globulin Ratio 1.1 (1.0-1.7) Lipase 84 U/L (73-393) Ethyl Alcohol Level < 10 mg/dL (0-10) Medications Current Medications Prochlorperazine Edisylate (Compazine) 10 mg 1X ONCE IV Last administered on 1 at 15:22; Start 07/15/19 at 14:30; Stop 07/15/19 at 14:32; Status DC Haloperidol Lactate (Haldol Inj) 5 mg 1X ONCE IVP Last administered on 07/15/19at 15:22; Start 07/15/19 at 14:30; Stop 07/15/19 at 14:32; Status DC Famotidine (Pepcid Vial) 20 mg 1X ONCE IVP Last administered on 07/15/19at 15:22; Start 07/15/19 at 14:30; Stop 07/15/19 at 14:32; Status DC Sodium Chloride 1,000 ml @ 1,000 mls/hr 1X ONCE IV Last administered on 07/15/19at 15:21; Start 07/15/19 at 14:30; Stop 07/15/19 at 15:29; Status DC Morphine Sulfate (Morphine Sulfate) 5 mg 1X ONCE IV Last administered on 07/15/19at 16:33; Start 07/15/19 at 16:15; Stop 07/15/19 at 16:16; Status DC Labetalol HCl (Normodyne Iv Push) 20 mg 1X ONCE IVP ; Start 07/15/19 at 17:30; Stop 07/15/19 at 17:31; Status DC Fentanyl Citrate (Fentanyl 2ml Vial) 50 mcg 1X ONCE IVP Last administered on 07/15/19at 17:53; Start 07/15/19 at 17:30; Stop 07/15/19 at 17:31; Status DC Ondansetron HCl (Zofran) 4 mg PRN Q8HRS PRN IV NAUSEA/VOMITING; Start 07/15/19 at 18:15; Stop 07/15/19 at 20:44; Status DC Morphine Sulfate (Morphine Sulfate) 4 mg PRN Q2HR PRN IV PAIN Last administered on 07/15/19at 23:49; Start 07/15/19 at 18:15; Stop 07/16/19 at 18:14 Sodium Chloride 1,000 ml @ 75 mls/hr 1X ONCE IV Last administered on 07/15/19at 22:23; Start 07/15/19 at 18:15; Stop 07/16/19 at 07:34; Status DC Labetalol HCl (Normodyne Iv Push) 10 mg Q6HRS PRN IVP HYPERTENSION; Start 07/15/19 at 18:15 Pantoprazole Sodium 80 mg/ Sodium Chloride 100 ml @ 10 mls/hr Q10H IV Last administered on 07/15/19at 18:26; Start 07/15/19 at 18:15; Stop 07/16/19 at 18:14 Ondansetron HCl (Zofran) 4 mg PRN Q6HRS PRN IV NAUSEA/VOMITING; Start 07/15/19 at 20:45 Amlodipine Besylate (Norvasc) 10 mg DAILY PO ; Start 07/16/19 at 09:00 Cyclobenzaprine HCl (Flexeril) 10 mg PRN TID PRN PO MUSCLE SPASMS; Start 07/15/19 at 20:45 Gabapentin (Neurontin) 300 mg TID PO ; Start 07/15/19 at 21:00 Ondansetron HCl (Zofran Odt) 4 mg Q8HRS PO Last administered on 07/15/19at 22: 00; Start 07/15/19 at 22:00; Stop 07/16/19 at 04:56; Status DC Potassium Chloride/Water 100 ml @ 100 mls/hr Q1H IV Last administered on 07/15/19at 02:00; Start 07/15/19 at 21:00; Stop 07/16/19 at 00:59; Status DC Vitamin D (Vitamin D3) 5,000 unit DAILY PO ; Start 07/16/19 at 09:00 Active Scripts Active Amlodipine Besylate 10 Mg Tablet 10 Mg PO DAILY 30 Days Pantoprazole Sodium (Pantoprazole Sodium) 40 Mg Tablet.dr 40 Mg PO DAILYAC Zofran (Ondansetron Hcl) 4 Mg Tablet 1 Tab PO Q6HRS Hydrocodone-Apap 5-325 (Hydrocodone Bit/Acetaminophen) 1 Tab Tablet 1 Tab PO PRN Q4HRS PRN Zofran Odt (Ondansetron) 4 Mg Tab.rapdis 1 Tab SL Q8HRS Reported Ranitidine Hcl 150 Mg Capsule 1 Cap PO BID Cyclobenzaprine Hcl 10 Mg Tablet 1 Tab PO PRN TID PRN Gabapentin 300 Mg Capsule 300 Mg PO TID Vitals/I & O Vital Sign - Last 24 Hours 07/15/19 07/15/19 07/15/19 07/15/19 14:03 14:13 14:40 15:06 Temp 97.7 97.7 Pulse 118 105 115 109 Resp 18 16 18 B/P (MAP) 212/155 (174) 212/155 (174) 222/133 (162) 209/138 (161) Pulse Ox 100 100 O2 Delivery Room Air Room Air Room Air 07/15/19 07/15/19 07/15/19 07/15/19 15:10 15:40 16:33 17:05 Pulse 110 99 Resp 18 20 14 B/P (MAP) 212/138 (162) 211/115 (147) Pulse Ox 100 95 98 O2 Delivery Room Air Room Air 07/15/19 07/15/19 07/15/19 07/15/19 17:17 17:30 17:52 17:53 Pulse 118 113 121 Resp 21 21 16 B/P (MAP) 225/138 (167) 131/89 131/89 (103) Pulse Ox 98 98 98 O2 Delivery Room Air Room Air 07/15/19 07/15/19 07/15/19 07/15/19 19:28 19:35 20:00 22:45 Temp 98.0 98.6 98.0 98.6 Pulse 93 100 88 Resp 15 20 18 B/P (MAP) 154/99 (117) 134/90 (105) 112/78 (89) Pulse Ox 99 98 98 O2 Delivery Room Air Room Air Room Air Room Air 07/16/19 07/16/19 02:45 07:00 Temp 98.3 98.9 98.3 98.9 Pulse 82 85 Resp 18 16 B/P (MAP) 111/81 (91) 121/78 (92) Pulse Ox 98 100 O2 Delivery Room Air Room Air Intake and Output 07/15/19 07/15/19 07/16/19 15:00 23:00 07:00 Intake Total 1000 ml 0 ml Output Total 300 ml Balance 700 ml 0 ml REGULO CUEVA MD Jul 16, 2019 08:21
[2019-07-16] MEDS: MORPHINE SULFATE 4 MG/ML VIAL. IV PRN (08:22)
[2019-07-16] MEDS: POTASSIUM CHLORIDE 10MEQ 100 ML IV SCH (08:24)
[2019-07-16] MEDS: GABAPENTIN 300 MG CAPSULE. PO SCH ×3 (09:00→21:20)
[2019-07-16] MEDS ORDERED: MAGNESIUM SULFATE 4GM 100 ML IV ONE (09:30)
--- NOTE | 2019-07-16 09:30 | PDOC ---
Subjective: Subjective: Please see many past GI consults, most recently from 07/03/19. Again presented to ER w/ "hematemesis" (says bright red - then "dark") and significant hypertension. Had some abd pain - better. Denies hematochezia and melena. Denies precipitating events, says started at 4:00 a.m. yesterday. Hgb and BUN are WNL. Feels better w/ normal BP this morning. No bleeding since admission. Not hungry but would like some water. Says she is compliant w/ meds at home - cannot tell me the names of anything she takes except Norvasc. Says her neighbor checks her BP and it's okay, then says she checks it at [facility] and it's high. Often keeps to a liquid diet at home - can't tell me why except sometimes has a "funny feeling" after eating. Objective: Objective: 54 y/o female who we have seen many times - admitted about once monthly recently. Again presented to ER w/ abd pain, vomiting and concern for bleeding ("hematemesis"), and noted w/ significantly elevated blood pressure - all her typical symptoms, all resolved quickly per usual. Reportedly taking pantoprazole QD and Reglan TID. ?still taking hydrocodone Has denies NSAIDs in the past. Several EGDs @ [facility] [place] - never w/ ulcer, initially +H. pylori and then negative (after treatment), gastritis and duodenitis noted (most recently 09/2018). Also two recent colonoscopies - first w/ ischemic colitis, second normal. GES normal here in 03/2019 (T1/2 53 min). Normal GB on US in 05/2019. Elevated Cortisol in 03/2019. 6 CTs here since 2016. Abnormal urine collection w/ elevated VMA 24 hr and normetanephrine in 03/2019. Negative octreoscan in 06/2019. Vital Signs: Vital Signs Date Time Temp Pulse Resp B/P (MAP) Pulse Ox O2 Delivery O2 Flow Rate FiO2 07/16/19 08:22 100 Room Air 07/16/19 07:00 98.9 85 16 121/78 (92) 98.9 Labs: Laboratory Tests Test 07/15/19 15:14 07/15/19 15:30 Urine Opiates Screen Neg Urine Methadone Screen Neg Urine Barbiturates Neg Urine Phencyclidine Screen Neg Urine Amphetamine/Methamphetamine Neg Urine Benzodiazepines Screen Neg Urine Cocaine Screen Neg Urine Cannabinoids Screen Neg Urine Ethyl Alcohol Neg White Blood Count 11.1 x10^3/uL Red Blood Count 5.35 x10^6/uL Hemoglobin 15.0 g/dL Hematocrit 46.0 % Mean Corpuscular Volume 86 fL Mean Corpuscular Hemoglobin 28 pg Mean Corpuscular Hemoglobin Concent 33 g/dL Red Cell Distribution Width 15.7 % Platelet Count 257 x10^3/uL Neutrophils (%) (Auto) 83 % Lymphocytes (%) (Auto) 12 % Monocytes (%) (Auto) 4 % Eosinophils (%) (Auto) 0 % Basophils (%) (Auto) 1 % Neutrophils # (Auto) 9.2 x10^3/uL Lymphocytes # (Auto) 1.3 x10^3/uL Monocytes # (Auto) 0.5 x10^3/uL Eosinophils # (Auto) 0.0 x10^3/uL Basophils # (Auto) 0.1 x10^3/uL Sodium Level 142 mmol/L Potassium Level 3.3 mmol/L Chloride Level 101 mmol/L Carbon Dioxide Level 21 mmol/L Anion Gap 20 Blood Urea Nitrogen 20 mg/dL Creatinine 1.1 mg/dL Estimated GFR (Cockcroft-Gault) 62.4 BUN/Creatinine Ratio 18 Glucose Level 157 mg/dL Calcium Level 10.2 mg/dL Magnesium Level 1.5 mg/dL Total Bilirubin 0.6 mg/dL Aspartate Amino Transf (AST/SGOT) 19 U/L Alanine Aminotransferase (ALT/SGPT) 15 U/L Alkaline Phosphatase 78 U/L Troponin I Quantitative < 0.017 ng/mL Total Protein 9.4 g/dL Albumin 4.9 g/dL Albumin/Globulin Ratio 1.1 Lipase 84 U/L Ethyl Alcohol Level < 10 mg/dL PE: GEN: NAD LUNGS: CTAB HEART: RRR ABD: NABS, S/ND/NT NEURO/PSYCH: A & O 3 A/P: Recurrent admissions for "hematemesis," n/v, abd pain, and HTN -- Workup as above. Fine to try clears, ADAT. Probably doesn't need PPI drip - will change to PO. Other per Dr. Mccarty - ?ANDRES MARTE Jul 16, 2019 09:30
[2019-07-16 11:14] VITALS: BP 134/84
[2019-07-16] MEDS: CHOLECALCIFEROL (VITAMIN D3) 5,000 UNIT CAPSULE PO SCH (12:24)
[2019-07-16] MEDS: amLODIPine BESYLATE 10 MG TABLET PO SCH (12:25)
[2019-07-16 14:02] LABS: BASO # 0.1 x10^3/uL (0.0-0.2); BASO % 1 % (0-3); EOS % 0 % (0-3); HEMOGLOBIN 12.6 g/dL (12.0-15.5); LYMPH # 3.2 x10^3/uL (1.0-4.8); LYMPH % 36 % (24-48); MEAN CORPUSCULAR HEMOGLOBIN 28 pg (25-35); MEAN CORPUSCULAR HGB CONC 32 g/dL (31-37); MEAN CORPUSCULAR VOLUME 87 fL (79-100); MONO # 0.9 x10^3/uL (0.0-1.1); MONO % 11 % (0-9); NEUT # 4.7 x10^3/uL (1.8-7.7); NEUT % 53 % (31-73); PLATELET COUNT 205 x10^3/uL (140-400); RED BLOOD COUNT 4.49 x10^6/uL (3.50-5.40); RED CELL DISTRIBUTION WIDTH 15.5 % (11.5-14.5); WHITE BLOOD COUNT 8.9 x10^3/uL (4.0-11.0)
[2019-07-16 14:27] LABS: ALBUMIN 3.6 g/dL (3.4-5.0); ALBUMIN/GLOBULIN RATIO 0.9 (1.0-1.7); CALCIUM 8.9 mg/dL (8.5-10.1); CREATININE 1.1 mg/dL (0.6-1.0); GFR 62.4; POTASSIUM 3.6 mmol/L (3.5-5.1); TOTAL BILIRUBIN 0.5 mg/dL (0.2-1.0); TOTAL PROTEIN 7.6 g/dL (6.4-8.2)
[2019-07-16 15:00] VITALS: BP 165/75
[2019-07-16] MEDS: fentaNYL PF VIAL 100 MCG/2 ML VIAL IVP PRN ×2 (17:36→21:21)
[2019-07-16 19:10] VITALS: BP 151/94
[2019-07-16 22:40] VITALS: BP 140/94
[2019-07-17 03:05] VITALS: BP 146/94
[2019-07-17 07:01] VITALS: BP 137/91
[2019-07-17] MEDS ORDERED: PANTOPRAZOLE 40 MG TABLET.DR. PO SCH (07:30)
[2019-07-17] MEDS: GABAPENTIN 300 MG CAPSULE. PO SCH ×2 (09:29→14:22)
[2019-07-17] MEDS: amLODIPine BESYLATE 10 MG TABLET PO SCH (09:29)
[2019-07-17] MEDS: CHOLECALCIFEROL (VITAMIN D3) 5,000 UNIT CAPSULE PO SCH (09:29)
[2019-07-17] MEDS: fentaNYL PF VIAL 100 MCG/2 ML VIAL IVP PRN (09:42)
[2019-07-17 10:12] VITALS: BP 129/87
--- NOTE | 2019-07-17 11:15 | PDOC ---
Subjective: Subjective: No more n/v, bleeding, or abd pain. Takes hydrocodone and BC powder at home for back pain. Objective: Objective: D/w nurse - refused HIDA - says she can't lay flat for an hour because she has chronic back pain - nurse say her laying flat shortly after that. Vital Signs: Vital Signs Date Time Temp Pulse Resp B/P (MAP) Pulse Ox O2 Delivery O2 Flow Rate FiO2 07/17/19 10:28 100 Room Air 07/17/19 10:12 97.7 74 18 129/87 (101) 97.7 PE: GEN: NAD LUNGS: CTAB HEART: RRR ABD: S/ND/NT NEURO/PSYCH: A & O 3 A/P: "Hematemesis," n/v, abd pain, and HTN - resolved quickly per usual -- Refused HIDA. Okay to ADAT. Continue PPI. Back pain per primary. 24 hr urine collection in process. ANDRES HOFFMAN Jul 17, 2019 11:14
--- NOTE | 2019-07-17 11:37 | PDOC ---
PROGRESS NOTES Chief Complaint Chief Complaint A/P: Hypertensive emergency - 255/138. admit to telemetry, Labetalol prn. Has had elevated normetanephrines previously, has negative somatostatin scan Acute encephalopathy - she is aware she is confused, no focal neuro deficits. With her BP coming down she feels improved. Acute abdominal pain - uncertain etiology, known well to GI service, will consult Nausea and vomiting - intractable, will keep meds IV, zofran, compazine until able to take PO Hypokalemia - replace IV and po, check mag. Hypomagnesemia - will replace in AM if low again Dehydration - from pain and nausea and poor PO intake, , IV fluid Hypercalcemia - 10.2 will give IVF. Monitor, check phos, vitamin D levels, pth was WNL. Will give vitamin D Hyperglycemia - will monitor Leukocytosis - likely from vomiting and element of hemoconcentration FEN - General diet PPX - GI Bleed FULL CODE Inpatient CVC for hypertensive emergency, likely 2 midnights. History of Present Illness History of Present Illness Ms Rajput is a 54yo F w/ PMHx Anxiety, Depression, GERD, High Cholesterol, Hypertension, PUD, Gastroparesis who presents to the ED today complaining of 10 out of 10 mid abdominal pain with vomiting of that began at 4 AM this morning, though she notes she vomited yesterday as well and now it is grossly bloody. Patient denies any diarrhea. Denies any fever. She does note some confusion. Denies any urgency frequency dysuria. She does note calf pain and cramping that began this afternoon. She was writhing around the bed. Hemoglobin 15.7, Potassium of 3.2, patient was unable to take oral potassium replacement. Calcium 10.2. prominent T waves and ST changes in V4,5,6, but no STEMI was identified normal sinus rhythm rate of 80 QTC 456 Blood pressure 224/134 over to the ED with a heart rate of 84. Patient has histo ry of uncontrolled hypertension. Given labetalol IV, hydralazine IV, clonidine by mouth. Blood pressure 233/156. Given labetalol 2nd dose with some improvement. Called for admission for intractable nausea/vomiting and HTN emergency. Her 07/09/19 INDIUM-111 OCTREOSCAN was negative for chest or abdominal abnormal uptake. BP improved somewhat overnight. Still feeling too nauseated to take any PO. Plan for HIDA scan and repeat urine catecholamines almost complete after 24 hours. Plan: D/c on minipress BID in addition to her other meds Vitals Vitals Vital Signs Date Time Temp Pulse Resp B/P (MAP) Pulse Ox O2 Delivery O2 Flow Rate FiO2 07/17/19 10:28 100 Room Air 07/17/19 10:12 97.7 74 18 129/87 (101) 97.7 Physical Exam General: Alert, Cooperative, moderate distress Lungs: Clear Abdomen: Normal bowel sounds, Soft, No hepatosplenomegaly, No masses, Other (diffuse tenderness) Extremities: No clubbing, No cyanosis, No edema, Normal pulses, No tenderness/swelling Skin: No rashes, No breakdown, No significant lesion Labs LABS Laboratory Tests Test 07/16/19 13:40 White Blood Count 8.9 x10^3/uL (4.0-11.0) Red Blood Count 4.49 x10^6/uL (3.50-5.40) Hemoglobin 12.6 g/dL (12.0-15.5) Hematocrit 39.0 % (36.0-47.0) Mean Corpuscular Volume 87 fL (79-100) Mean Corpuscular Hemoglobin 28 pg (25-35) Mean Corpuscular Hemoglobin Concent 32 g/dL (31-37) Red Cell Distribution Width 15.5 % (11.5-14.5) Platelet Count 205 x10^3/uL (140-400) Neutrophils (%) (Auto) 53 % (31-73) Lymphocytes (%) (Auto) 36 % (24-48) Monocytes (%) (Auto) 11 % (0-9) Eosinophils (%) (Auto) 0 % (0-3) Basophils (%) (Auto) 1 % (0-3) Neutrophils # (Auto) 4.7 x10^3/uL (1.8-7.7) Lymphocytes # (Auto) 3.2 x10^3/uL (1.0-4.8) Monocytes # (Auto) 0.9 x10^3/uL (0.0-1.1) Eosinophils # (Auto) 0.0 x10^3/uL (0.0-0.7) Basophils # (Auto) 0.1 x10^3/uL (0.0-0.2) Sodium Level 141 mmol/L (136-145) Potassium Level 3.6 mmol/L (3.5-5.1) Chloride Level 106 mmol/L (98-107) Carbon Dioxide Level 24 mmol/L (21-32) Anion Gap 11 (6-14) Blood Urea Nitrogen 24 mg/dL (7-20) Creatinine 1.1 mg/dL (0.6-1.0) Estimated GFR (Cockcroft-Gault) 62.4 BUN/Creatinine Ratio 22 (6-20) Glucose Level 141 mg/dL (70-99) Calcium Level 8.9 mg/dL (8.5-10.1) Total Bilirubin 0.5 mg/dL (0.2-1.0) Aspartate Amino Transf (AST/SGOT) 17 U/L (15-37) Alanine Aminotransferase (ALT/SGPT) 14 U/L (14-59) Alkaline Phosphatase 57 U/L (46-116) Total Protein 7.6 g/dL (6.4-8.2) Albumin 3.6 g/dL (3.4-5.0) Albumin/Globulin Ratio 0.9 (1.0-1.7) Assessment and Plan Assessmemt and Plan Problems Medical Problems: (1) Accelerated hypertension Status: Acute (2) Hematemesis Status: Acute Comment Review of Relevant I have reviewed the following items starr (where applicable) has been applied. Labs Laboratory Tests Test 07/15/19 15:14 07/15/19 15:30 07/16/19 13:40 Urine Opiates Screen Neg (NEG) Urine Methadone Screen Neg (NEG) Urine Barbiturates Neg (NEG) Urine Phencyclidine Screen Neg (NEG) Urine Amphetamine/Methamphetamine Neg (NEG) Urine Benzodiazepines Screen Neg (NEG) Urine Cocaine Screen Neg (NEG) Urine Cannabinoids Screen Neg (NEG) Urine Ethyl Alcohol Neg (NEG) White Blood Count 11.1 x10^3/uL (4.0-11.0) 8.9 x10^3/uL (4.0-11.0) Red Blood Count 5.35 x10^6/uL (3.50-5.40) 4.49 x10^6/uL (3.50-5.40) Hemoglobin 15.0 g/dL (12.0-15.5) 12.6 g/dL (12.0-15.5) Hematocrit 46.0 % (36.0-47.0) 39.0 % (36.0-47.0) Mean Corpuscular Volume 86 fL (79-100) 87 fL (79-100) Mean Corpuscular Hemoglobin 28 pg (25-35) 28 pg (25-35) Mean Corpuscular Hemoglobin Concent 33 g/dL (31-37) 32 g/dL (31-37) Red Cell Distribution Width 15.7 % (11.5-14.5) 15.5 % (11.5-14.5) Platelet Count 257 x10^3/uL (140-400) 205 x10^3/uL (140-400) Neutrophils (%) (Auto) 83 % (31-73) 53 % (31-73) Lymphocytes (%) (Auto) 12 % (24-48) 36 % (24-48) Monocytes (%) (Auto) 4 % (0-9) 11 % (0-9) Eosinophils (%) (Auto) 0 % (0-3) 0 % (0-3) Basophils (%) (Auto) 1 % (0-3) 1 % (0-3) Neutrophils # (Auto) 9.2 x10^3/uL (1.8-7.7) 4.7 x10^3/uL (1.8-7.7) Lymphocytes # (Auto) 1.3 x10^3/uL (1.0-4.8) 3.2 x10^3/uL (1.0-4.8) Monocytes # (Auto) 0.5 x10^3/uL (0.0-1.1) 0.9 x10^3/uL (0.0-1.1) Eosinophils # (Auto) 0.0 x10^3/uL (0.0-0.7) 0.0 x10^3/uL (0.0-0.7) Basophils # (Auto) 0.1 x10^3/uL (0.0-0.2) 0.1 x10^3/uL (0.0-0.2) Sodium Level 142 mmol/L (136-145) 141 mmol/L (136-145) Potassium Level 3.3 mmol/L (3.5-5.1) 3.6 mmol/L (3.5-5.1) Chloride Level 101 mmol/L (98-107) 106 mmol/L (98-107) Carbon Dioxide Level 21 mmol/L (21-32) 24 mmol/L (21-32) Anion Gap 20 (6-14) 11 (6-14) Blood Urea Nitrogen 20 mg/dL (7-20) 24 mg/dL (7-20) Creatinine 1.1 mg/dL (0.6-1.0) 1.1 mg/dL (0.6-1.0) Estimated GFR (Cockcroft-Gault) 62.4 62.4 BUN/Creatinine Ratio 18 (6-20) 22 (6-20) Glucose Level 157 mg/dL (70-99) 141 mg/dL (70-99) Calcium Level 10.2 mg/dL (8.5-10.1) 8.9 mg/dL (8.5-10.1) Magnesium Level 1.5 mg/dL (1.8-2.4) Total Bilirubin 0.6 mg/dL (0.2-1.0) 0.5 mg/dL (0.2-1.0) Aspartate Amino Transf (AST/SGOT) 19 U/L (15-37) 17 U/L (15-37) Alanine Aminotransferase (ALT/SGPT) 15 U/L (14-59) 14 U/L (14-59) Alkaline Phosphatase 78 U/L (46-116) 57 U/L (46-116) Troponin I Quantitative < 0.017 ng/mL (0.000-0.055) Total Protein 9.4 g/dL (6.4-8.2) 7.6 g/dL (6.4-8.2) Albumin 4.9 g/dL (3.4-5.0) 3.6 g/dL (3.4-5.0) Albumin/Globulin Ratio 1.1 (1.0-1.7) 0.9 (1.0-1.7) Lipase 84 U/L (73-393) Ethyl Alcohol Level < 10 mg/dL (0-10) Laboratory Tests Test 07/16/19 13:40 White Blood Count 8.9 x10^3/uL (4.0-11.0) Red Blood Count 4.49 x10^6/uL (3.50-5.40) Hemoglobin 12.6 g/dL (12.0-15.5) Hematocrit 39.0 % (36.0-47.0) Mean Corpuscular Volume 87 fL (79-100) Mean Corpuscular Hemoglobin 28 pg (25-35) Mean Corpuscular Hemoglobin Concent 32 g/dL (31-37) Red Cell Distribution Width 15.5 % (11.5-14.5) Platelet Count 205 x10^3/uL (140-400) Neutrophils (%) (Auto) 53 % (31-73) Lymphocytes (%) (Auto) 36 % (24-48) Monocytes (%) (Auto) 11 % (0-9) Eosinophils (%) (Auto) 0 % (0-3) Basophils (%) (Auto) 1 % (0-3) Neutrophils # (Auto) 4.7 x10^3/uL (1.8-7.7) Lymphocytes # (Auto) 3.2 x10^3/uL (1.0-4.8) Monocytes # (Auto) 0.9 x10^3/uL (0.0-1.1) Eosinophils # (Auto) 0.0 x10^3/uL (0.0-0.7) Basophils # (Auto) 0.1 x10^3/uL (0.0-0.2) Sodium Level 141 mmol/L (136-145) Potassium Level 3.6 mmol/L (3.5-5.1) Chloride Level 106 mmol/L (98-107) Carbon Dioxide Level 24 mmol/L (21-32) Anion Gap 11 (6-14) Blood Urea Nitrogen 24 mg/dL (7-20) Creatinine 1.1 mg/dL (0.6-1.0) Estimated GFR (Cockcroft-Gault) 62.4 BUN/Creatinine Ratio 22 (6-20) Glucose Level 141 mg/dL (70-99) Calcium Level 8.9 mg/dL (8.5-10.1) Total Bilirubin 0.5 mg/dL (0.2-1.0) Aspartate Amino Transf (AST/SGOT) 17 U/L (15-37) Alanine Aminotransferase (ALT/SGPT) 14 U/L (14-59) Alkaline Phosphatase 57 U/L (46-116) Total Protein 7.6 g/dL (6.4-8.2) Albumin 3.6 g/dL (3.4-5.0) Albumin/Globulin Ratio 0.9 (1.0-1.7) Medications Current Medications Prochlorperazine Edisylate (Compazine) 10 mg 1X ONCE IV Last administered on 07/15/19at 15:22; Start 07/15/19 at 14:30; Stop 07/15/19 at 14:32; Status DC Haloperidol Lactate (Haldol Inj) 5 mg 1X ONCE IVP Last administered on 07/15/19at 15:22; Start 07/15/19 at 14:30; Stop 07/15/19 at 14:32; Status DC Famotidine (Pepcid Vial) 20 mg 1X ONCE IVP Last administered on 07/15/19at 15:22; Start 07/15/19 at 14:30; Stop 07/15/19 at 14:32; Status DC Sodium Chloride 1,000 ml @ 1,000 mls/hr 1X ONCE IV Last administered on 07/15/19at 15:21; Start 07/15/19 at 14:30; Stop 07/15/19 at 15:29; Status DC Morphine Sulfate (Morphine Sulfate) 5 mg 1X ONCE IV Last administered on 07/15/19at 16:33; Start 07/15/19 at 16:15; Stop 07/15/19 at 16:16; Status DC Labetalol HCl (Normodyne Iv Push) 20 mg 1X ONCE IVP ; Start 07/15/19 at 17:30; Stop 07/15/19 at 17:31; Status DC Fentanyl Citrate (Fentanyl 2ml Vial) 50 mcg 1X ONCE IVP Last administered on 07/15/19at 17:53; Start 07/15/19 at 17:30; Stop 07/15/19 at 17:31; Status DC Ondansetron HCl (Zofran) 4 mg PRN Q8HRS PRN IV NAUSEA/VOMITING; Start 07/15/19 at 18:15; Stop 07/15/19 at 20:44; Status DC Morphine Sulfate (Morphine Sulfate) 4 mg PRN Q2HR PRN IV PAIN Last administered on 07/16/19at 08:22; Start 07/15/19 at 18:15; Stop 07/16/19 at 12:13; Status DC Sodium Chloride 1,000 ml @ 75 mls/hr 1X ONCE IV Last administered on 07/15/19at 22:23; Start 07/15/19 at 18:15; Stop 07/16/19 at 07:34; Status DC Labetalol HCl (Normodyne Iv Push) 10 mg Q6HRS PRN IVP HYPERTENSION; Start 07/15/19 at 18:15 Pantoprazole Sodium 80 mg/ Sodium Chloride 100 ml @ 10 mls/hr Q10H IV Last administered on 07/15/19at 18:26; Start 07/15/19 at 18:15; Stop 07/16/19 at 09:31; Status DC Ondansetron HCl (Zofran) 4 mg PRN Q6HRS PRN IV NAUSEA/VOMITING; Start 07/15/19 at 20:45 Amlodipine Besylate (Norvasc) 10 mg DAILY PO Last administered on 07/17/19at 09:29; Start 07/16/19 at 09:00 Cyclobenzaprine HCl (Flexeril) 10 mg PRN TID PRN PO MUSCLE SPASMS Last administered on 07/16/19at 21:20; Start 07/15/19 at 20:45 Gabapentin (Neurontin) 300 mg TID PO Last administered on 07/17/19at 09:29; Start 07/15/19 at 21:00 Ondansetron HCl (Zofran Odt) 4 mg Q8HRS PO Last administered on 07/15/19at 22:00; Start 07/15/19 at 22:00; Stop 07/16/19 at 04:56; Status DC Potassium Chloride/Water 100 ml @ 100 mls/hr Q1H IV Last administered on 07/16/19at 08:24; Start 07/15/19 at 21:00; Stop 07/16/19 at 00:59; Status DC Vitamin D (Vitamin D3) 5,000 unit DAILY PO Last administered on 07/17/19at 09:29; Start 07/16/19 at 09:00 Magnesium Sulfate 100 ml @ 25 mls/hr 1X ONCE IV Last administered on 07/16/19at 12:26; Start 07/16/19 at 09:30; Stop 07/16/19 at 13:29; Status DC Pantoprazole Sodium (Protonix) 40 mg DAILYAC PO Last administered on 07/17/19at 09:29; Start 07/17/19 at 07:30 Fentanyl Citrate (Fentanyl 2ml Vial) 50 mcg PRN Q3HRS PRN IVP PAIN Last administered on 07/17/19at 09:42; Start 07/16/19 at 12:15 Active Scripts Active Amlodipine Besylate 10 Mg Tablet 10 Mg PO DAILY 30 Days Pantoprazole Sodium (Pantoprazole Sodium) 40 Mg Tablet.dr 40 Mg PO DAILYAC Zofran (Ondansetron Hcl) 4 Mg Tablet 1 Tab PO Q6HRS Hydrocodone-Apap 5-325 (Hydrocodone Bit/Acetaminophen) 1 Tab Tablet 1 Tab PO PRN Q4HRS PRN Zofran Odt (Ondansetron) 4 Mg Tab.rapdis 1 Tab SL Q8HRS Reported Ranitidine Hcl 150 Mg Capsule 1 Cap PO BID Cyclobenzaprine Hcl 10 Mg Tablet 1 Tab PO PRN TID PRN Gabapentin 300 Mg Capsule 300 Mg PO TID Vitals/I & O Vital Sign - Last 24 Hours 07/16/19 07/16/19 07/16/19 07/16/19 12:25 15:00 17:36 18:23 Temp 97.6 97.6 Pulse 68 66 Resp 16 B/P (MAP) 134/84 165/75 (105) Pulse Ox 98 98 98 O2 Delivery Room Air Room Air Room Air 07/16/19 07/16/19 07/16/19 07/16/19 19:10 20:00 21:21 22:00 Temp 98.0 98.0 Pulse 65 Resp 18 20 18 B/P (MAP) 151/94 (113) Pulse Ox 100 100 100 O2 Delivery Room Air Room Air Room Air Room Air 07/16/19 07/17/19 07/17/19 07/17/19 22:40 03:05 07:01 08:05 Temp 98.4 98.0 98.5 98.4 98.0 98.5 Pulse 71 63 61 Resp 18 18 18 B/P (MAP) 140/94 (109) 146/94 (111) 137/91 (106) Pulse Ox 100 97 99 O2 Delivery Room Air Room Air Room Air Room Air 10/3007/17/19 07/17/19 07/17/19 09:29 09:42 10:12 10:28 Temp 97.7 97.7 Pulse 61 74 Resp 18 B/P (MAP) 137/91 129/87 (101) Pulse Ox 99 100 100 O2 Delivery Room Air Room Air Room Air Intake and Output 07/16/19 07/16/19 07/17/19 15:00 23:00 07:00 Intake Total 480 ml 360 ml Output Total 650 ml 700 ml Balance -170 ml -340 ml REGULO CUEVA MD Jul 17, 2019 11:37
[2019-07-17] MEDS ORDERED: HYDR-2761 PO (12:58)
[2019-07-17] MEDS ORDERED: PRAZ1CAP PO (12:58)
[2019-07-17] MEDS ORDERED: CHOL5000 PO (12:58)
[2019-07-17] MEDS ORDERED: PRAZOSIN 1 MG CAPSULE. PO SCH (13:00)
--- NOTE | 2019-07-17 13:05 | PDOC3 ---
Discharge Summary Visit Information Date of Admission: Jul 15, 2019 Date of Discharge: Jul 17, 2019 Admitting Diagnosis: HTN emergency Final Diagnosis Problems Medical Problems: (1) Accelerated hypertension Status: Acute (2) Hematemesis Status: Acute Brief Hospital Course Allergies Allergies Coded Allergies Type Severity Reaction Last Updated Verified Penicillins Allergy Intermediate HAS TOLERATED AMOXICILLIN 06/04/19 Yes Vital Signs Vital Signs Date Time Temp Pulse Resp B/P (MAP) Pulse Ox O2 Delivery O2 Flow Rate FiO2 07/17/19 10:28 100 Room Air 07/17/19 10:12 97.7 74 18 129/87 (101) 97.7 Lab Results Laboratory Tests Test 07/15/19 15:14 07/15/19 15:30 07/16/19 13:40 Urine Opiates Screen Neg (NEG) Urine Methadone Screen Neg (NEG) Urine Barbiturates Neg (NEG) Urine Phencyclidine Screen Neg (NEG) Urine Amphetamine/Methamphetamine Neg (NEG) Urine Benzodiazepines Screen Neg (NEG) Urine Cocaine Screen Neg (NEG) Urine Cannabinoids Screen Neg (NEG) Urine Ethyl Alcohol Neg (NEG) White Blood Count 11.1 x10^3/uL (4.0-11.0) 8.9 x10^3/uL (4.0-11.0) Red Blood Count 5.35 x10^6/uL (3.50-5.40) 4.49 x10^6/uL (3.50-5.40) Hemoglobin 15.0 g/dL (12.0-15.5) 12.6 g/dL (12.0-15.5) Hematocrit 46.0 % (36.0-47.0) 39.0 % (36.0-47.0) Mean Corpuscular Volume 86 fL (79-100) 87 fL (79-100) Mean Corpuscular Hemoglobin 28 pg (25-35) 28 pg (25-35) Mean Corpuscular Hemoglobin Concent 33 g/dL (31-37) 32 g/dL (31-37) Red Cell Distribution Width 15.7 % (11.5-14.5) 15.5 % (11.5-14.5) Platelet Count 257 x10^3/uL (140-400) 205 x10^3/uL (140-400) Neutrophils (%) (Auto) 83 % (31-73) 53 % (31-73) Lymphocytes (%) (Auto) 12 % (24-48) 36 % (24-48) Monocytes (%) (Auto) 4 % (0-9) 11 % (0-9) Eosinophils (%) (Auto) 0 % (0-3) 0 % (0-3) Basophils (%) (Auto) 1 % (0-3) 1 % (0-3) Neutrophils # (Auto) 9.2 x10^3/uL (1.8-7.7) 4.7 x10^3/uL (1.8-7.7) Lymphocytes # (Auto) 1.3 x10^3/uL (1.0-4.8) 3.2 x10^3/uL (1.0-4.8) Monocytes # (Auto) 0.5 x10^3/uL (0.0-1.1) 0.9 x10^3/uL (0.0-1.1) Eosinophils # (Auto) 0.0 x10^3/uL (0.0-0.7) 0.0 x10^3/uL (0.0-0.7) Basophils # (Auto) 0.1 x10^3/uL (0.0-0.2) 0.1 x10^3/uL (0.0-0.2) Sodium Level 142 mmol/L (136-145) 141 mmol/L (136-145) Potassium Level 3.3 mmol/L (3.5-5.1) 3.6 mmol/L (3.5-5.1) Chloride Level 101 mmol/L (98-107) 106 mmol/L (98-107) Carbon Dioxide Level 21 mmol/L (21-32) 24 mmol/L (21-32) Anion Gap 20 (6-14) 11 (6-14) Blood Urea Nitrogen 20 mg/dL (7-20) 24 mg/dL (7-20) Creatinine 1.1 mg/dL (0.6-1.0) 1.1 mg/dL (0.6-1.0) Estimated GFR (Cockcroft-Gault) 62.4 62.4 BUN/Creatinine Ratio 18 (6-20) 22 (6-20) Glucose Level 157 mg/dL (70-99) 141 mg/dL (70-99) Calcium Level 10.2 mg/dL (8.5-10.1) 8.9 mg/dL (8.5-10.1) Magnesium Level 1.5 mg/dL (1.8-2.4) Total Bilirubin 0.6 mg/dL (0.2-1.0) 0.5 mg/dL (0.2-1.0) Aspartate Amino Transf (AST/SGOT) 19 U/L (15-37) 17 U/L (15-37) Alanine Aminotransferase (ALT/SGPT) 15 U/L (14-59) 14 U/L (14-59) Alkaline Phosphatase 78 U/L (46-116) 57 U/L (46-116) Troponin I Quantitative < 0.017 ng/mL (0.000-0.055) Total Protein 9.4 g/dL (6.4-8.2) 7.6 g/dL (6.4-8.2) Albumin 4.9 g/dL (3.4-5.0) 3.6 g/dL (3.4-5.0) Albumin/Globulin Ratio 1.1 (1.0-1.7) 0.9 (1.0-1.7) Lipase 84 U/L (73-393) Ethyl Alcohol Level < 10 mg/dL (0-10) Laboratory Tests Test 07/16/19 13:40 White Blood Count 8.9 x10^3/uL (4.0-11.0) Red Blood Count 4.49 x10^6/uL (3.50-5.40) Hemoglobin 12.6 g/dL (12.0-15.5) Hematocrit 39.0 % (36.0-47.0) Mean Corpuscular Volume 87 fL (79-100) Mean Corpuscular Hemoglobin 28 pg (25-35) Mean Corpuscular Hemoglobin Concent 32 g/dL (31-37) Red Cell Distribution Width 15.5 % (11.5-14.5) Platelet Count 205 x10^3/uL (140-400) Neutrophils (%) (Auto) 53 % (31-73) Lymphocytes (%) (Auto) 36 % (24-48) Monocytes (%) (Auto) 11 % (0-9) Eosinophils (%) (Auto) 0 % (0-3) Basophils (%) (Auto) 1 % (0-3) Neutrophils # (Auto) 4.7 x10^3/uL (1.8-7.7) Lymphocytes # (Auto) 3.2 x10^3/uL (1.0-4.8) Monocytes # (Auto) 0.9 x10^3/uL (0.0-1.1) Eosinophils # (Auto) 0.0 x10^3/uL (0.0-0.7) Basophils # (Auto) 0.1 x10^3/uL (0.0-0.2) Sodium Level 141 mmol/L (136-145) Potassium Level 3.6 mmol/L (3.5-5.1) Chloride Level 106 mmol/L (98-107) Carbon Dioxide Level 24 mmol/L (21-32) Anion Gap 11 (6-14) Blood Urea Nitrogen 24 mg/dL (7-20) Creatinine 1.1 mg/dL (0.6-1.0) Estimated GFR (Cockcroft-Gault) 62.4 BUN/Creatinine Ratio 22 (6-20) Glucose Level 141 mg/dL (70-99) Calcium Level 8.9 mg/dL (8.5-10.1) Total Bilirubin 0.5 mg/dL (0.2-1.0) Aspartate Amino Transf (AST/SGOT) 17 U/L (15-37) Alanine Aminotransferase (ALT/SGPT) 14 U/L (14-59) Alkaline Phosphatase 57 U/L (46-116) Total Protein 7.6 g/dL (6.4-8.2) Albumin 3.6 g/dL (3.4-5.0) Albumin/Globulin Ratio 0.9 (1.0-1.7) Brief Hospital Course Ms Rajput is a 54yo F w/ PMHx Anxiety, Depression, GERD, High Cholesterol, Hypertension, PUD, Gastroparesis who presents to the ED today complaining of 10 out of 10 mid abdominal pain with vomiting of that began at 4 AM this morning, though she notes she vomited yesterday as well and now it is grossly bloody. Patient denies any diarrhea. Denies any fever. She does note some confusion. Denies any urgency frequency dysuria. She does note calf pain and cramping that began this afternoon. She was writhing around the bed. Hemoglobin 15.7, Potassium of 3.2, patient was unable to take oral potassium replacement. Calcium 10.2. prominent T waves and ST changes in V4,5,6, but no STEMI was identified normal sinus rhythm rate of 80 QTC 456 Blood pressure 224/134 over to the ED with a heart rate of 84. Patient has history of uncontrolled hypertension. Given labetalol IV, hydralazine IV, clonidine by mouth. Blood pressure 233/156. Given labetalol 2nd dose with some improvement. Called for admission for intractable nausea/vomiting and HTN emergency. Her 07/09/19 INDIUM-111 OCTREOSCAN was negative for chest or abdominal abnormal uptake. BP improved somewhat overnight. Still feeling too nauseated to take any PO. Plan for HIDA scan and repeat urine catecholamines almost complete after 24 hours. A/P: Hypertensive emergency - 255/138. admit to telemetry, Labetalol prn. Has had elevated normetanephrines previously, has negative somatostatin scan Acute encephalopathy - she is aware she is confused, no focal neuro deficits. With her BP coming down she feels improved. Acute abdominal pain - uncertain etiology, known well to GI service, will consult Nausea and vomiting - intractable, will keep meds IV, zofran, compazine until able to take PO Hypokalemia - replace IV and po, check mag. Hypomagnesemia - will replace in AM if low again Dehydration - from pain and nausea and poor PO intake, , IV fluid Hypercalcemia - 10.2 will give IVF. Monitor, check phos, vitamin D levels, pth w as WNL. Will give vitamin D Hyperglycemia - will monitor Leukocytosis - likely from vomiting and element of hemoconcentration Plan: D/c on minipress BID in addition to her other meds Greater than 30 minutes spent on d/c Discharge Information Condition at Discharge: Improved Follow Up: Weeks (1) Disposition/Orders: D/C to Home Scheduled Amlodipine Besylate (Amlodipine Besylate) 10 Mg Tablet, 10 MG PO DAILY for HTN for 30 Days, #30 Prescribed by: REGULO CUEVA MD on 07/04/19 1034 Last Action: Reviewed on 07/15/192053 by Nichelle Foster Cholecalciferol (Vitamin D3) (Vitamin D3) 5,000 Unit Capsule, 5,000 UNIT PO DAILY for Vitamin D insufficency for 30 Days, #30 Prescribed by: REGULO CUEVA MD on 07/17/19 1258 Gabapentin (Gabapentin) 300 Mg Capsule, 300 MG PO TID, (Reported) Entered as Reported by: ALEXANDRA SNOWDEN on 12/01/16 1109 Last Action: Reviewed on 07/15/192053 by Nichelle Foster Ondansetron (Zofran Odt) 4 Mg Tab.rapdis, 1 TAB SL Q8HRS, #15 Prescribed by: Tegan WORTHINGTON MD on 06/16/17 1322 Last Action: Continued on 07/15/192043 by REGULO CUEVA MD Pantoprazole Sodium (Pantoprazole Sodium ) 40 Mg Tablet.dr, 40 MG PO DAILYAC for gerd, #60 Prescribed by: LISS DAVIS on 05/21/19 1421 Last Action: Reviewed on 07/15/192053 by Nichelle Foster Prazosin Hcl (Minipress) 1 Mg Capsule, 1 MG PO BID for HTN for 30 Days, #60 Ref 11 Prescribed by: REGULO CUEVA MD on 07/17/19 1258 Ranitidine Hcl (Ranitidine Hcl) 150 Mg Capsule, 1 CAP PO BID for stomach, #60 Ref 5 (Reported) Entered as Reported by: JACK AGUILAR on 06/04/19 1028 Last Action: Reviewed on 07/15/192053 by Nichelle Foster Scheduled PRN Cyclobenzaprine Hcl (Cyclobenzaprine Hcl) 10 Mg Tablet, 1 TAB PO PRN TID PRN for MUSCLE SPASMS, #30 (Reported) Entered as Reported by: CA GRANADOS on 05/19/17 1114 Last Action: Reviewed on 07/15/192053 by Nichelle Foster Hydrocodone Bit/Acetaminophen (Hydrocodone-Apap 5-325 ) 1 Tab Tablet, 1 TAB PO PRN Q4HRS PRN for PAIN for 6 Days, #6 Prescribed by: REGULO CUEVA MD on 07/17/19 1259 Discontinued Medications Ondansetron Hcl (Zofran) 4 Mg Tablet, 1 TAB PO Q6HRS for gi bleed, nausea, #60 Prescribed by: LISS DAVIS on 05/21/19 1421 Last Action: Reviewed on 07/15/192053 by REGULO Foster MD Jul 17, 2019 13:04
[2019-07-17 14:34] VITALS: BP 124/82
[2019-07-20 08:13] LABS: METANEPH UR 113 ug/L (Undefined); TOTAL METANEPHRINES UR 147 ug/24 hr (45-290)
[2019-08-01] MEDS ORDERED: ONDA4TAB12 PO (22:53)
== END 2019-07-17 19:30 | disposition home or self-care (01) | DRG 305 ==
LOC: ER 12:52 → 2 SOUTH 17:29
PROVIDERS: ADMIT Internal Medicine; ATTEND Internal Medicine
DX: I16.1 Hypertensive emergency (principal); K92.0 Hematemesis; G93.40 Encephalopathy, unspecified; D72.829 Elevated white blood cell count, unspecified; E78.00 Pure hypercholesterolemia, unspecified; E78.5 Hyperlipidemia, unspecified; E83.42 Hypomagnesemia; E83.52 Hypercalcemia; E86.0 Dehydration; F41.9 Anxiety disorder, unspecified; K21.9 Gastro-esophageal reflux disease without esophagitis; M06.9 Rheumatoid arthritis, unspecified; E87.6 Hypokalemia; I10 Essential (primary) hypertension; F32.9 Major depressive disorder, single episode, unspecified; Z83.3 Family history of diabetes mellitus; Z87.11 Personal history of peptic ulcer disease; Z87.891 Personal history of nicotine dependence
CPT/HCPCS: 36415; 80053; 80307; 83690; 83735; 83835; 84484; 85025; 93005; 96365; 96375; C9113; G0480; J0780; J1630; J2270; J3010; J3475; J3480; J3490; J7030; Q0162; 99285-25; G0378

== ENCOUNTER 2019-07-19 09:45 | Inpatient (IN) | payer SELFPAY ==
[~2019-07-19] VITALS: Ht 170.2 cm; Wt 59.0 kg
[~2019-07-19 09:45] MED LIST changes: +CHOL5000 PO; +PRAZ1CAP PO
[2019-07-19 10:44] LABS: BILIRUBIN,URINE NEGATIVE (NEG); CLARITY,URINE CLEAR; COLOR,URINE YELLOW; NITRITE,URINE NEGATIVE (NEG); PH,URINE 7.5; PROTEIN,URINE NEGATIVE (NEG-TRACE); UROBILINOGEN,URINE 0.2 mg/dL (0.2 mg/dL)
[2019-07-19] MEDS ORDERED: ONDANSETRON PF 4 MG/2 ML VIAL. IV ONE (10:45)
[2019-07-19] MEDS ORDERED: fentaNYL PF VIAL 100 MCG/2 ML VIAL IVP ONE (10:45)
[2019-07-19] MEDS ORDERED: PANTOPRAZOLE IV PUSH 40 MG VIAL. IVP ONE (10:45)
[2019-07-19 10:57] LABS: BARBITURATES NEG (NEG); BENZODIAZEPINES NEG (NEG); CANNABINOIDS NEG (NEG); COCAINE NEG (NEG); METHADONE NEG (NEG); OPIATES NEG (NEG); PHENCYCLIDINE NEG (NEG)
[2019-07-19 10:58] LABS: AMPHETAMINE/METHAMPHETAMINE NEG (NEG)
[2019-07-19 10:59] LABS: SQUAMOUS EPITHELIAL CELL,UR FEW /LPF
[2019-07-19 11:00] LABS: BACTERIA,URINE 0 /HPF (0-FEW); RBC,URINE RARE /HPF (0-2); WBC,URINE OCC /HPF (0-4)
[2019-07-19] MEDS ORDERED: HALOPERIDOL LACTATE 5 MG/ML VIAL. IVP ONE (11:00)
[2019-07-19] MEDS ORDERED: IV NORMAL SALINE 1000ML BAG 1,000 ML IV SCH (11:00)
--- NOTE | 2019-07-19 11:02 | PHYS DOC ---
Past Medical History Past Medical History: Hypertension, P.U.D., Other Additional Past Medical Histor: stomach ulcers, CYCLIC VOMITING Past Surgical History: No Surgical History, Other Additional Past Surgical Histo: foot surgery, explor. abd sx Alcohol Use: None Drug Use: None Adult General Chief Complaint Chief Complaint: ABDOMINAL PAIN [facility] HPI Patient is a 54 year old female patient with history of cyclic vomiting syndrome and hypertensive emergency and frequent hospitalization with discharge home yesterday who presents with complaining of bloody vomiting and abdominal pain. Patient states since she was discharged home yesterday she has had frequent episodes of coffee-ground material vomiting and lower abdominal stabbing pain and rated her pain 10 over 10. Patient is very anxious and asking for pain medication as morphine and Haldol because they are the only medication she believes works for her. Review of Systems Review of Systems Constitutional: Denies fever or chills [] Eyes: Denies change in visual acuity, redness, or eye pain [] HENT: Denies nasal congestion or sore throat [] Respiratory: Denies cough or shortness of breath [] Cardiovascular: No additional information not addressed in HPI [] GI: Reports abdominal pain, nausea, vomiting, denies bloody stools or diarrhea [] : Denies dysuria or hematuria [] Musculoskeletal: Denies back pain or joint pain [] Integument: Denies rash or skin lesions [] Neurologic: Denies headache, focal weakness or sensory changes [] Endocrine: Denies polyuria or polydipsia [] All other systems were reviewed and found to be within normal limits, except as documented in this note. Current Medications Current Medications Allergies Allergies Allergies Coded Allergies Type Severity Reaction Last Updated Verified Penicillins Allergy Intermediate HAS TOLERATED AMOXICILLIN 06/04/19 Yes Physical Exam Physical Exam Constitutional: Mild distress, non-toxic appearance, very anxious. [] HENT: Normocephalic, atraumatic , dry oral mucosa. Eyes: PERRLA, EOMI, conjunctiva normal, no discharge. [] Neck: Normal range of motion, no tenderness, supple, no stridor. [] Cardiovascular: Tachycardia, no murmur [] Lungs & Thorax: Bilateral breath sounds clear to auscultation [] Abdomen: Bowel sounds normal, soft, no tenderness, suprapubic guarding, no masses, no pulsatile masses. [] Skin: Warm, dry, no erythema, no rash. [] Back: No tenderness, no CVA tenderness. [] Extremities: No tenderness, no cyanosis, no clubbing, ROM intact, no edema. [] Neurologic: Alert and oriented X 3, no focal deficits noted. [] Psychologic: Affect anxious, mood normal. [] Current Patient Data Vital Signs Vital Signs Date Time Temp Pulse Resp B/P (MAP) Pulse Ox O2 Delivery O2 Flow Rate FiO2 07/19/19 10:22 216/137 (163) 07/19/19 10:07 97.9 100 24 100 Room Air 97.9 Lab Values Laboratory Tests Test 07/19/19 10:11 Urine Collection Type Void Urine Color Yellow Urine Clarity Clear Urine pH 7.5 Urine Specific [place] 1.010 Urine Protein Negative mg/dL (NEG-TRACE) Urine Glucose (UA) 100 mg/dL (NEG) Urine Ketones (Stick) Negative mg/dL (NEG) Urine Blood Trace (NEG) Urine Nitrite Negative (NEG) Urine Bilirubin Negative (NEG) Urine Urobilinogen Dipstick 0.2 mg/dL (0.2 mg/dL) Urine Leukocyte Esterase Negative (NEG) Urine RBC Rare /HPF (0-2) Urine WBC Occ /HPF (0-4) Urine Squamous Epithelial Cells Few /LPF Urine Bacteria 0 /HPF (0-FEW) Urine Opiates Screen Neg (NEG) Urine Methadone Screen Neg (NEG) Urine Barbiturates Neg (NEG) Urine Phencyclidine Screen Neg (NEG) Urine Amphetamine/Methamphetamine Neg (NEG) Urine Benzodiazepines Screen Neg (NEG) Urine Cocaine Screen Neg (NEG) Urine Cannabinoids Screen Neg (NEG) Urine Ethyl Alcohol Neg (NEG) EKG EKG EKG interpreted by me. EKG at 1038 showed sinus tachycardia at rate of 106, left atrial abnormality, poor R-wave progress in anteroseptal leads, no acute ST-T wave elevations. Radiology/Procedures Radiology/Procedures [] Course & Med Decision Making Course & Med Decision Making Pertinent Labs and Imaging studies reviewed. (See chart for details) Evaluation of patient in ER showed 54-year-old female patient with history of cyclic vomiting syndrome and hematemesis and frequent hospitalization came after 1 day discharge from hospital with complaining of vomiting blood and brought in a sample of her hematemesis with coffee ground material. Patient was very anxious she dictated and asking for morphine and has to frequently. Patient had blood pressure of 225/125 and treated with hydralazine and labetalol with improvement of blood pressure to 150s and improvement of the heart rate. Patient did not have anemia or leukocytosis or electrolyte problem.Patient requiring admission for further evaluation and treatment. Discussed with Dr. Meyer who is in agreement with admission. Discussed findings and plan with patient and family, who acknowledge understanding and agreement. Dragon Disclaimer Dragon Disclaimer This electronic medical record was generated, in whole or in part, using a voice recognition dictation system. Departure Departure Impression: Primary Impression: Hematemesis Additional Impressions: Intractable vomiting with nausea Hypertensive emergency Abdominal pain Anxiety Tachycardia Disposition: ADMITTED INPATIENT (1101) Admitting Physician: HOLLY (Dr. meyer accepted admission at 1100.) Condition: GUARDED Referrals: NO PCP (PCP) Critical Care Time Critical care time was 80 minutes exclusive of procedures. Problem Qualifiers Primary Impression: Hematemesis Nausea presence: with nausea Qualified Codes: K92.0 - Hematemesis Additional Impressions: Abdominal pain Abdominal location: unspecified location Qualified Codes: R10.9 - Unspecified abdominal pain SERAFIN CHRISTY MD Jul 19, 2019 11:02
[2019-07-19 11:16] LABS: BASO # 0.1 x10^3/uL (0.0-0.2); BASO % 1 % (0-3); EOS % 0 % (0-3); HEMATOCRIT 47.8 % (36.0-47.0); HEMOGLOBIN 15.6 g/dL (12.0-15.5); LYMPH # 1.3 x10^3/uL (1.0-4.8); LYMPH % 17 % (24-48); MEAN CORPUSCULAR HEMOGLOBIN 28 pg (25-35); MEAN CORPUSCULAR HGB CONC 33 g/dL (31-37); MEAN CORPUSCULAR VOLUME 87 fL (79-100); MONO # 0.3 x10^3/uL (0.0-1.1); MONO % 3 % (0-9); NEUT # 6.1 x10^3/uL (1.8-7.7); NEUT % 79 % (31-73); PLATELET COUNT 183 x10^3/uL (140-400); RED BLOOD COUNT 5.48 x10^6/uL (3.50-5.40); RED CELL DISTRIBUTION WIDTH 15.2 % (11.5-14.5); WHITE BLOOD COUNT 7.6 x10^3/uL (4.0-11.0)
[2019-07-19] MEDS: PANTOPRAZOLE SODIUM IV DRIP 80 MG in IV NORMAL SALINE 100ML 100 ML IV SCH ×2 (11:39→22:31)
[2019-07-19] MEDS ORDERED: MORPHINE SULFATE 2 MG/ML VIAL. IV ONE (11:45)
[2019-07-19] MEDS ORDERED: hydrALAZINE 20 MG/ML VIAL. IVP ONE (12:15)
[2019-07-19 12:20] LABS: CALCIUM 9.8 mg/dL (8.5-10.1); CREATININE 0.9 mg/dL (0.6-1.0); GFR 78.7; POTASSIUM 3.9 mmol/L (3.5-5.1)
[2019-07-19 12:29] LABS: ALBUMIN 4.7 g/dL (3.4-5.0); TOTAL BILIRUBIN 0.7 mg/dL (0.2-1.0); TOTAL PROTEIN 9.2 g/dL (6.4-8.2)
[2019-07-19] MEDS: IV NORMAL SALINE 1000ML BAG 1,000 ML IV SCH ×2 (12:31→22:31)
[2019-07-19] MEDS ORDERED: LABETALOL 20 MG/4 ML DISP.SYRIN. IVP ONE (13:15)
[2019-07-19] MEDS ORDERED: HYDROcodone/APAP 5/325MG 1 TAB TABLET PO PRN (13:30)
[2019-07-19] MEDS ORDERED: METOPROLOL TARTRATE 5 MG/5 ML VIAL. IVP PRN (13:30)
[2019-07-19] MEDS ORDERED: ONDANSETRON ODT 4 MG TAB.RAPDIS. PO PRN (13:30)
[2019-07-19] MEDS ORDERED: CYCLOBENZAPRINE 10 MG TABLET. PO PRN (13:30)
[2019-07-19] MEDS: METOPROLOL TART IMMED RELEASE 50 MG TABLET. PO SCH ×3 (13:30→21:00)
[2019-07-19 14:00] VITALS: BP 118/78
[2019-07-19] MEDS: GABAPENTIN 300 MG CAPSULE. PO SCH ×3 (14:00→22:31)
--- NOTE | 2019-07-19 14:32 | EKG ---
[facility] [address] [place] [address] Test Date: 2019-07-19 Test Time: 10:38:36 Pat Name: DANIELA MANUEL Department: Room: Gender: F [employer]ician: : 1965 Requested By: SERAFIN CHRISTY Order Number: [id number] Reading MD: Measurements Intervals [place] Rate: 106 P: 54 FL: 134 QRS: 54 QRSD: 82 T: 62 QT: 342 QTc: 456 Interpretive Statements SINUS TACHYCARDIA LEFT ATRIAL ABNORMALITY QRS(T) CONTOUR ABNORMALITY CONSIDER ANTEROLATERAL MYOCARDIAL DAMAGE ABNORMAL ECG RI6.01 No previous ECG available for comparison
--- NOTE | 2019-07-19 16:47 | PDOC1 ---
History and Physical Date of Admission Date of Admission DATE: 07/19/19 TIME: 16:44 History of Present Illness History of Present Illness Dayna, is a 54 year old female patient, just DC a few days ago, returns with severe abd pain, nausea and marked vomting. She has a history of cyclic vomiting syndrome and hypertensive emergency and frequent hospitalization with discharge home yesterday who presents with complaining of bloody vomiting and abdominal pain. She complains of frequent episodes of coffee-ground material vomiting and lower abdominal stabbing pain and rated her pain 10 over 10. anxiety is up, she appears wild-eyed Patient is very anxious and asking for pain medication as morphine and Haldol because they are the only medication she believes works for her. Past Medical History Cardiovascular: HTN, Hyperlipidemia Pulmonary: No pertinent hx GI: GERD, Other Hepatobiliary: No pertinent hx Psych: Anxiety, Depression Rheumatologic: Rheumatoid arthritis Infectious disease: No pertinent hx Renal/: No pertinent hx Endocrine: No pertinent hx Past Surgical History Past Surgical History: Other Family History Family History: Diabetes, Heart Disease Social History Smoke: No ALCOHOL: none Drugs: Marijuana Current Problem List Problem List Problems Medical Problems: (1) Abdominal pain Status: Acute (2) Anxiety Status: Acute (3) Hematemesis Status: Acute (4) Intractable vomiting with nausea Status: Acute (5) Tachycardia Status: Acute Current Medications Current Medications Current Medications Sodium Chloride 1,000 ml @ 1,000 mls/hr Q1H IV Last administered on 07/19/19at 10:48; Start 07/19/19 at 11:00; Stop 07/19/19 at 11:59; Status DC Ondansetron HCl (Zofran) 4 mg 1X ONCE IV Last administered on 07/19/19at 10:49; Start 07/19/19 at 10:45; Stop 07/19/19 at 10:46; Status DC Pantoprazole Sodium (PROTONIX VIAL for IV PUSH) 40 mg 1X ONCE IVP Last administered on 07/19/19at 10:49; Start 07/19/19 at 10:45; Stop 07/19/19 at 10:46; Status DC Fentanyl Citrate (Fentanyl 2ml Vial) 50 mcg 1X ONCE IVP Last administered on 07/19/19at 10:50; Start 07/19/19 at 10:45; Stop 07/19/19 at 10:46; Status DC Haloperidol Lactate (Haldol Inj) 5 mg 1X ONCE IVP Last administered on 07/19/19at 11:05; Start 07/19/19 at 11:00; Stop 07/19/19 at 11:01; Status DC Sodium Chloride 1,000 ml @ 125 mls/hr Q8H IV Last administered on 07/19/19at 12:31; Start 07/19/19 at 11:02; Stop 07/20/19 at 11:01 Pantoprazole Sodium 80 mg/ Sodium Chloride 100 ml @ 10 mls/hr Q10H IV Last administered on 07/19/19at 11:39; Start 07/19/19 at 11:30 Morphine Sulfate (Morphine Sulfate) 2 mg 1X ONCE IV Last administered on 07/19/19at 11:56; Start 07/19/19 at 11:45; Stop 07/19/19 at 11:46; Status DC Hydralazine HCl (Apresoline Inj) 20 mg 1X ONCE IVP Last administered on 07/19/19at 12:09; Start 07/19/19 at 12:15; Stop 07/19/19 at 12:16; Status DC Lorazepam (Ativan Inj) 2 mg 1X ONCE IVP Last administered on 07/19/19at 12:41; Start 07/19/19 at 12:45; Stop 07/19/19 at 12:46; Status DC Labetalol HCl (Normodyne Iv Push) 10 mg 1X ONCE IVP Last administered on 07/19/19at 13:21; Start 07/19/19 at 13:15; Stop 07/19/19 at 13:16; Status DC Amlodipine Besylate (Norvasc) 10 mg DAILY PO ; Start 07/20/19 at 09:00 Cyclobenzaprine HCl (Flexeril) 10 mg PRN TID PRN PO MUSCLE SPASMS; Start 07/19/19 at 13:30 Gabapentin (Neurontin) 300 mg TID PO ; Start 07/19/19 at 14:00 Acetaminophen/ Hydrocodone Bitart (Lortab 5/325) 1 tab PRN Q4HRS PRN PO PAIN; Start 07/19/19 at 13:30 Ondansetron HCl (Zofran Odt) 4 mg Q8HRS PRN PO nausea; Start 07/19/19 at 13:30 Pantoprazole Sodium (Protonix) 40 mg DAILYAC PO ; Start 07/20/19 at 07:30; Status UNV Prazosin HCl (Minipress) 1 mg BID PO ; Start 07/19/19 at 21:00 Non-Formulary Medication (Ranitidine Hcl ) 1 cap BID PO ; Start 07/19/19 at 21:00; Status UNV Metoprolol Tartrate (Lopressor Vial) 5 mg PRN Q6HRS PRN IVP HYPERTENSION; Start 07/19/19 at 13:30 Metoprolol Tartrate (Lopressor) 100 mg BID PO ; Start 07/19/19 at 13:30 Active Scripts Active Vitamin D3 (Cholecalciferol (Vitamin D3)) 5,000 Unit Capsule 5,000 Unit PO DAILY 30 Days Minipress (Prazosin Hcl) 1 Mg Capsule 1 Mg PO BID 30 Days Hydrocodone-Apap 5-325 (Hydrocodone Bit/Acetaminophen) 1 Tab Tablet 1 Tab PO PRN Q4HRS PRN 6 Days Amlodipine Besylate 10 Mg Tablet 10 Mg PO DAILY 30 Days Pantoprazole Sodium (Pantoprazole Sodium) 40 Mg Tablet.dr 40 Mg PO DAILYAC Zofran Odt (Ondansetron) 4 Mg Tab.rapdis 1 Tab SL Q8HRS Reported Ranitidine Hcl 150 Mg Capsule 1 Cap PO BID Cyclobenzaprine Hcl 10 Mg Tablet 1 Tab PO PRN TID PRN Gabapentin 300 Mg Capsule 300 Mg PO TID Allergies Allergies: Coded Allergies: Penicillins (Verified Allergy, Intermediate, HAS TOLERATED AMOXICILLIN, 06/04/19) ROS General: No: Chills, Night Sweats, Fatigue, Malaise, Appetite, Other PSYCHOLOGICAL ROS: YES: Irritablity, Sleep disturbances; No: Anxiety, Behavioral Disorder, Concentration difficultie, Decreased libido, Depression, Disorientation, Hallucinations, Hostility, Memory difficulties, Mood Swings, Obsessive thoughts, Other Eyes: No Blurry vision, No Decreased vision, No Double vision, No Dry eyes, No Excessive tearing, No Eye Pain, No Itchy Eyes, No Loss of vision, No Photophobia, No Scotomata, No Uses contacts, No Uses glasses, No Other HEENT: No: Heacaches, Visual Changes, Hearing change, Nasal congestion, Nasal discharge, Oral lesions, Sinus pain, Sore Throat, Epistaxis, Sneezing, Snoring, Tinnitus, Vertigo, Vocal changes, Other Respiratory: No: Cough, Hemoptysis, Orthopnea, Pleuritic Pain, Shortness of breath, SOB with excertion, Sputum Changes, Stridor, Tachypnea, Wheezing, Other Cardiovascular: No Chest Pain, No Palpitations, No Orthopnea, No Paroxysmal Noc. Dyspnea, No Edema, No Lt Headedness, No Other Gastrointestinal: Yes Nausea, Yes Vomiting, Yes Abdominal Pain; No Hematochezia, No Other Genitourinary: No Dysuria, No Frequency, No Incontinence, No Hematuria, No Retention, No Discharge, No Urgency, No Pain, No Flank Pain, No Other, No , No , No , No , No , No , No Musculoskeletal: Yes Joint Stiffness; No Gait Disturbance, No Joint Pain, No Joint Swelling, No Muscle Pain, No Muscular Weakness, No Pain In:, No Swelling In:, No Other Neurological: No Behavorial Changes, No Bowel/Bladder ControlChng, No Confusion, No Dizziness, No Headaches, No Impaired Coord/balance, No Memory Loss, No Numbness/Tingling, No Seizures, No Speech Problems, No Tremors, No Visual Changes, No Weakness, No Other Skin: No Dry Skin, No Eczema, No Hair Changes, No Lumps, No Mole Changes, No Mottling, No Nail Changes, No Pruritus, No Rash, No Skin Lesion Changes, No Other, No Acne Physical Exam General: Alert, Cooperative, mild distress HEENT: PERRLA Lungs: Clear to auscultation Heart: RRR Abdomen: Soft (tender) Extremities: No cyanosis Skin: No breakdown Neuro: Sensation intact Psych/Mental Status: Mood NL Vitals Vitals Vital Signs Date Time Temp Pulse Resp B/P (MAP) Pulse Ox O2 Delivery O2 Flow Rate FiO2 07/19/19 14:00 99.4 106 18 118/78 (91) 99 Room Air 99.4 Labs Labs Laboratory Tests Test 07/19/19 10:11 07/19/19 10:55 07/19/19 11:48 07/19/19 12:06 Urine Collection Type Void Urine Color Yellow Urine Clarity Clear Urine pH 7.5 Urine Specific [place]nell 1.010 Urine Protein Negative mg/dL (NEG-TRACE) Urine Glucose (UA) 100 mg/dL (NEG) Urine Ketones (Stick) Negative mg/dL (NEG) Urine Blood Trace (NEG) Urine Nitrite Negative (NEG) Urine Bilirubin Negative (NEG) Urine Urobilinogen Dipstick 0.2 mg/dL (0.2 mg/dL) Urine Leukocyte Esterase Negative (NEG) Urine RBC Rare /HPF (0-2) Urine WBC Occ /HPF (0-4) Urine Squamous Epithelial Cells Few /LPF Urine Bacteria 0 /HPF (0-FEW) Urine Opiates Screen Neg (NEG) Urine Methadone Screen Neg (NEG) Urine Barbiturates Neg (NEG) Urine Phencyclidine Screen Neg (NEG) Urine Amphetamine/Methamphetamine Neg (NEG) Urine Benzodiazepines Screen Neg (NEG) Urine Cocaine Screen Neg (NEG) Urine Cannabinoids Screen Neg (NEG) Urine Ethyl Alcohol Neg (NEG) White Blood Count 7.6 x10^3/uL (4.0-11.0) Red Blood Count 5.48 x10^6/uL (3.50-5.40) Hemoglobin 15.6 g/dL (12.0-15.5) Hematocrit 47.8 % (36.0-47.0) Mean Corpuscular Volume 87 fL (79-100) Mean Corpuscular Hemoglobin 28 pg (25-35) Mean Corpuscular Hemoglobin Concent 33 g/dL (31-37) Red Cell Distribution Width 15.2 % (11.5-14.5) Platelet Count 183 x10^3/uL (140-400) Neutrophils (%) (Auto) 79 % (31-73) Lymphocytes (%) (Auto) 17 % (24-48) Monocytes (%) (Auto) 3 % (0-9) Eosinophils (%) (Auto) 0 % (0-3) Basophils (%) (Auto) 1 % (0-3) Neutrophils # (Auto) 6.1 x10^3/uL (1.8-7.7) Lymphocytes # (Auto) 1.3 x10^3/uL (1.0-4.8) Monocytes # (Auto) 0.3 x10^3/uL (0.0-1.1) Eosinophils # (Auto) 0.0 x10^3/uL (0.0-0.7) Basophils # (Auto) 0.1 x10^3/uL (0.0-0.2) Prothrombin Time 13.0 SEC (11.7-14.0) Prothromb Time International Ratio 1.0 (0.8-1.1) Activated Partial Thromboplast Time 50 SEC (24-38) Sodium Level 143 mmol/L (136-145) Potassium Level 3.9 mmol/L (3.5-5.1) Chloride Level 103 mmol/L (98-107) Carbon Dioxide Level 25 mmol/L (21-32) Anion Gap 15 (6-14) Blood Urea Nitrogen 24 mg/dL (7-20) Creatinine 0.9 mg/dL (0.6-1.0) Estimated GFR (Cockcroft-Gault) 78.7 BUN/Creatinine Ratio 27 (6-20) Glucose Level 145 mg/dL (70-99) Calcium Level 9.8 mg/dL (8.5-10.1) Total Bilirubin 0.7 mg/dL (0.2-1.0) Aspartate Amino Transf (AST/SGOT) 23 U/L (15-37) Alanine Aminotransferase (ALT/SGPT) 14 U/L (14-59) Alkaline Phosphatase 81 U/L (46-116) Creatine Kinase 167 U/L (26-192) Total Protein 9.2 g/dL (6.4-8.2) Albumin 4.7 g/dL (3.4-5.0) Albumin/Globulin Ratio 1.0 (1.0-1.7) Lipase 89 U/L (73-393) Laboratory Tests Test 07/19/19 10:11 07/19/19 10:55 07/19/19 11:48 07/19/19 12:06 Urine Collection Type Void Urine Color Yellow Urine Clarity Clear Urine pH 7.5 Urine Specific [place] 1.010 Urine Protein Negative mg/dL (NEG-TRACE) Urine Glucose (UA) 100 mg/dL (NEG) Urine Ketones (Stick) Negative mg/dL (NEG) Urine Blood Trace (NEG) Urine Nitrite Negative (NEG) Urine Bilirubin Negative (NEG) Urine Urobilinogen Dipstick 0.2 mg/dL (0.2 mg/dL) Urine Leukocyte Esterase Negative (NEG) Urine RBC Rare /HPF (0-2) Urine WBC Occ /HPF (0-4) Urine Squamous Epithelial Cells Few /LPF Urine Bacteria 0 /HPF (0-FEW) Urine Opiates Screen Neg (NEG) Urine Methadone Screen Neg (NEG) Urine Barbiturates Neg (NEG) Urine Phencyclidine Screen Neg (NEG) Urine Amphetamine/Methamphetamine Neg (NEG) Urine Benzodiazepines Screen Neg (NEG) Urine Cocaine Screen Neg (NEG) Urine Cannabinoids Screen Neg (NEG) Urine Ethyl Alcohol Neg (NEG) White Blood Count 7.6 x10^3/uL (4.0-11.0) Red Blood Count 5.48 x10^6/uL (3.50-5.40) Hemoglobin 15.6 g/dL (12.0-15.5) Hematocrit 47.8 % (36.0-47.0) Mean Corpuscular Volume 87 fL (79-100) Mean Corpuscular Hemoglobin 28 pg (25-35) Mean Corpuscular Hemoglobin Concent 33 g/dL (31-37) Red Cell Distribution Width 15.2 % (11.5-14.5) Platelet Count 183 x10^3/uL (140-400) Neutrophils (%) (Auto) 79 % (31-73) Lymphocytes (%) (Auto) 17 % (24-48) Monocytes (%) (Auto) 3 % (0-9) Eosinophils (%) (Auto) 0 % (0-3) Basophils (%) (Auto) 1 % (0-3) Neutrophils # (Auto) 6.1 x10^3/uL (1.8-7.7) Lymphocytes # (Auto) 1.3 x10^3/uL (1.0-4.8) Monocytes # (Auto) 0.3 x10^3/uL (0.0-1.1) Eosinophils # (Auto) 0.0 x10^3/uL (0.0-0.7) Basophils # (Auto) 0.1 x10^3/uL (0.0-0.2) Prothrombin Time 13.0 SEC (11.7-14.0) Prothromb Time International Ratio 1.0 (0.8-1.1) Activated Partial Thromboplast Time 50 SEC (24-38) Sodium Level 143 mmol/L (136-145) Potassium Level 3.9 mmol/L (3.5-5.1) Chloride Level 103 mmol/L (98-107) Carbon Dioxide Level 25 mmol/L (21-32) Anion Gap 15 (6-14) Blood Urea Nitrogen 24 mg/dL (7-20) Creatinine 0.9 mg/dL (0.6-1.0) Estimated GFR (Cockcroft-Gault) 78.7 BUN/Creatinine Ratio 27 (6-20) Glucose Level 145 mg/dL (70-99) Calcium Level 9.8 mg/dL (8.5-10.1) Total Bilirubin 0.7 mg/dL (0.2-1.0) Aspartate Amino Transf (AST/SGOT) 23 U/L (15-37) Alanine Aminotransferase (ALT/SGPT) 14 U/L (14-59) Alkaline Phosphatase 81 U/L (46-116) Creatine Kinase 167 U/L (26-192) Total Protein 9.2 g/dL (6.4-8.2) Albumin 4.7 g/dL (3.4-5.0) Albumin/Globulin Ratio 1.0 (1.0-1.7) Lipase 89 U/L (73-393) VTE Prophylaxis Ordered VTE Prophylaxis Devices: Yes VTE Pharmacological Prophylaxi: Contraindicated Assessment/Plan Assessment/Plan acute abd pain nausea and vomiting exacerbation of cyclic vomiting syndrome BENJAMÍN DOBBINS MD Jul 19, 2019 16:47
[2019-07-19] MEDS ORDERED: HALOPERIDOL LACTATE 5 MG/ML VIAL. IVP PRN (17:00)
[2019-07-19 19:02] VITALS: BP 117/64
[2019-07-19] MEDS ORDERED: NON FORMULARY ITEM (Ranitidine Hcl 1 CAP) PO SCH (21:00)
[2019-07-19] MEDS: PRAZOSIN 1 MG CAPSULE. PO SCH (22:43)
[2019-07-19 23:35] VITALS: BP 129/69
[2019-07-20 03:15] VITALS: BP 136/92
[2019-07-20] MEDS: IV NORMAL SALINE 1000ML BAG 1,000 ML IV SCH (06:26)
[2019-07-20 07:00] VITALS: BP 133/86
[2019-07-20] MEDS: PANTOPRAZOLE SODIUM IV DRIP 80 MG in IV NORMAL SALINE 100ML 100 ML IV SCH (07:15)
[2019-07-20] MEDS ORDERED: PANTOPRAZOLE 40 MG TABLET.DR. PO SCH (07:30)
[2019-07-20] MEDS: GABAPENTIN 300 MG CAPSULE. PO SCH (08:56)
[2019-07-20] MEDS: PRAZOSIN 1 MG CAPSULE. PO SCH (08:58)
[2019-07-20] MEDS: METOPROLOL TART IMMED RELEASE 50 MG TABLET. PO SCH (08:59)
[2019-07-20] MEDS ORDERED: amLODIPine BESYLATE 10 MG TABLET PO SCH (09:00)
--- NOTE | 2019-07-20 09:37 | PDOC ---
PROGRESS NOTES Chief Complaint Chief Complaint acute abd pain nausea and vomiting exacerbation of cyclic vomiting syndrome accelerated htn on admit History of Present Illness History of Present Illness today, she reports that she "ate too much" and "ate the wrong food" she would like to DC later today will try full liquid meal, and if tolerates, will try to DC Vitals Vitals Vital Signs Date Time Temp Pulse Resp B/P (MAP) Pulse Ox O2 Delivery O2 Flow Rate FiO2 07/20/19 09:01 64 133/86 07/20/19 07:00 98.2 18 100 Room Air 98.2 Physical Exam General: Alert, Cooperative, mild distress Lungs: Clear Abdomen: Soft (tender) Extremities: No cyanosis Skin: No breakdown Labs LABS Laboratory Tests Test 07/19/19 10:11 07/19/19 10:55 07/19/19 11:48 07/19/19 12:06 Urine Collection Type Void Urine Color Yellow Urine Clarity Clear Urine pH 7.5 Urine Specific [place] 1.010 Urine Protein Negative mg/dL (NEG-TRACE) Urine Glucose (UA) 100 mg/dL (NEG) Urine Ketones (Stick) Negative mg/dL (NEG) Urine Blood Trace (NEG) Urine Nitrite Negative (NEG) Urine Bilirubin Negative (NEG) Urine Urobilinogen Dipstick 0.2 mg/dL (0.2 mg/dL) Urine Leukocyte Esterase Negative (NEG) Urine RBC Rare /HPF (0-2) Urine WBC Occ /HPF (0-4) Urine Squamous Epithelial Cells Few /LPF Urine Bacteria 0 /HPF (0-FEW) Urine Opiates Screen Neg (NEG) Urine Methadone Screen Neg (NEG) Urine Barbiturates Neg (NEG) Urine Phencyclidine Screen Neg (NEG) Urine Amphetamine/Methamphetamine Neg (NEG) Urine Benzodiazepines Screen Neg (NEG) Urine Cocaine Screen Neg (NEG) Urine Cannabinoids Screen Neg (NEG) Urine Ethyl Alcohol Neg (NEG) White Blood Count 7.6 x10^3/uL (4.0-11.0) Red Blood Count 5.48 x10^6/uL (3.50-5.40) Hemoglobin 15.6 g/dL (12.0-15.5) Hematocrit 47.8 % (36.0-47.0) Mean Corpuscular Volume 87 fL (79-100) Mean Corpuscular Hemoglobin 28 pg (25-35) Mean Corpuscular Hemoglobin Concent 33 g/dL (31-37) Red Cell Distribution Width 15.2 % (11.5-14.5) Platelet Count 183 x10^3/uL (140-400) Neutrophils (%) (Auto) 79 % (31-73) Lymphocytes (%) (Auto) 17 % (24-48) Monocytes (%) (Auto) 3 % (0-9) Eosinophils (%) (Auto) 0 % (0-3) Basophils (%) (Auto) 1 % (0-3) Neutrophils # (Auto) 6.1 x10^3/uL (1.8-7.7) Lymphocytes # (Auto) 1.3 x10^3/uL (1.0-4.8) Monocytes # (Auto) 0.3 x10^3/uL (0.0-1.1) Eosinophils # (Auto) 0.0 x10^3/uL (0.0-0.7) Basophils # (Auto) 0.1 x10^3/uL (0.0-0.2) Prothrombin Time 13.0 SEC (11.7-14.0) Prothromb Time International Ratio 1.0 (0.8-1.1) Activated Partial Thromboplast Time 50 SEC (24-38) Sodium Level 143 mmol/L (136-145) Potassium Level 3.9 mmol/L (3.5-5.1) Chloride Level 103 mmol/L (98-107) Carbon Dioxide Level 25 mmol/L (21-32) Anion Gap 15 (6-14) Blood Urea Nitrogen 24 mg/dL (7-20) Creatinine 0.9 mg/dL (0.6-1.0) Estimated GFR (Cockcroft-Gault) 78.7 BUN/Creatinine Ratio 27 (6-20) Glucose Level 145 mg/dL (70-99) Calcium Level 9.8 mg/dL (8.5-10.1) Total Bilirubin 0.7 mg/dL (0.2-1.0) Aspartate Amino Transf (AST/SGOT) 23 U/L (15-37) Alanine Aminotransferase (ALT/SGPT) 14 U/L (14-59) Alkaline Phosphatase 81 U/L (46-116) Creatine Kinase 167 U/L (26-192) Total Protein 9.2 g/dL (6.4-8.2) Albumin 4.7 g/dL (3.4-5.0) Albumin/Globulin Ratio 1.0 (1.0-1.7) Lipase 89 U/L (73-393) Assessment and Plan Assessmemt and Plan Problems Medical Problems: (1) Abdominal pain Status: Acute (2) Anxiety Status: Acute (3) Hematemesis Status: Acute (4) Intractable vomiting with nausea Status: Acute (5) Tachycardia Status: Acute Comment Review of Relevant I have reviewed the following items starr (where applicable) has been applied. Labs Laboratory Tests Test 07/19/19 10:11 07/19/19 10:55 07/19/19 11:48 07/19/19 12:06 Urine Collection Type Void Urine Color Yellow Urine Clarity Clear Urine pH 7.5 Urine Specific [place] 1.010 Urine Protein Negative mg/dL (NEG-TRACE) Urine Glucose (UA) 100 mg/dL (NEG) Urine Ketones (Stick) Negative mg/dL (NEG) Urine Blood Trace (NEG) Urine Nitrite Negative (NEG) Urine Bilirubin Negative (NEG) Urine Urobilinogen Dipstick 0.2 mg/dL (0.2 mg/dL) Urine Leukocyte Esterase Negative (NEG) Urine RBC Rare /HPF (0-2) Urine WBC Occ /HPF (0-4) Urine Squamous Epithelial Cells Few /LPF Urine Bacteria 0 /HPF (0-FEW) Urine Opiates Screen Neg (NEG) Urine Methadone Screen Neg (NEG) Urine Barbiturates Neg (NEG) Urine Phencyclidine Screen Neg (NEG) Urine Amphetamine/Methamphetamine Neg (NEG) Urine Benzodiazepines Screen Neg (NEG) Urine Cocaine Screen Neg (NEG) Urine Cannabinoids Screen Neg (NEG) Urine Ethyl Alcohol Neg (NEG) White Blood Count 7.6 x10^3/uL (4.0-11.0) Red Blood Count 5.48 x10^6/uL (3.50-5.40) Hemoglobin 15.6 g/dL (12.0-15.5) Hematocrit 47.8 % (36.0-47.0) Mean Corpuscular Volume 87 fL (79-100) Mean Corpuscular Hemoglobin 28 pg (25-35) Mean Corpuscular Hemoglobin Concent 33 g/dL (31-37) Red Cell Distribution Width 15.2 % (11.5-14.5) Platelet Count 183 x10^3/uL (140-400) Neutrophils (%) (Auto) 79 % (31-73) Lymphocytes (%) (Auto) 17 % (24-48) Monocytes (%) (Auto) 3 % (0-9) Eosinophils (%) (Auto) 0 % (0-3) Basophils (%) (Auto) 1 % (0-3) Neutrophils # (Auto) 6.1 x10^3/uL (1.8-7.7) Lymphocytes # (Auto) 1.3 x10^3/uL (1.0-4.8) Monocytes # (Auto) 0.3 x10^3/uL (0.0-1.1) Eosinophils # (Auto) 0.0 x10^3/uL (0.0-0.7) Basophils # (Auto) 0.1 x10^3/uL (0.0-0.2) Prothrombin Time 13.0 SEC (11.7-14.0) Prothromb Time International Ratio 1.0 (0.8-1.1) Activated Partial Thromboplast Time 50 SEC (24-38) Sodium Level 143 mmol/L (136-145) Potassium Level 3.9 mmol/L (3.5-5.1) Chloride Level 103 mmol/L (98-107) Carbon Dioxide Level 25 mmol/L (21-32) Anion Gap 15 (6-14) Blood Urea Nitrogen 24 mg/dL (7-20) Creatinine 0.9 mg/dL (0.6-1.0) Estimated GFR (Cockcroft-Gault) 78.7 BUN/Creatinine Ratio 27 (6-20) Glucose Level 145 mg/dL (70-99) Calcium Level 9.8 mg/dL (8.5-10.1) Total Bilirubin 0.7 mg/dL (0.2-1.0) Aspartate Amino Transf (AST/SGOT) 23 U/L (15-37) Alanine Aminotransferase (ALT/SGPT) 14 U/L (14-59) Alkaline Phosphatase 81 U/L (46-116) Creatine Kinase 167 U/L (26-192) Total Protein 9.2 g/dL (6.4-8.2) Albumin 4.7 g/dL (3.4-5.0) Albumin/Globulin Ratio 1.0 (1.0-1.7) Lipase 89 U/L (73-393) Laboratory Tests Test 07/19/19 10:11 07/19/19 10:55 07/19/19 11:48 07/19/19 12:06 Urine Collection Type Void Urine Color Yellow Urine Clarity Clear Urine pH 7.5 Urine Specific [place] 1.010 Urine Protein Negative mg/dL (NEG-TRACE) Urine Glucose (UA) 100 mg/dL (NEG) Urine Ketones (Stick) Negative mg/dL (NEG) Urine Blood Trace (NEG) Urine Nitrite Negative (NEG) Urine Bilirubin Negative (NEG) Urine Urobilinogen Dipstick 0.2 mg/dL (0.2 mg/dL) Urine Leukocyte Esterase Negative (NEG) Urine RBC Rare /HPF (0-2) Urine WBC Occ /HPF (0-4) Urine Squamous Epithelial Cells Few /LPF Urine Bacteria 0 /HPF (0-FEW) Urine Opiates Screen Neg (NEG) Urine Methadone Screen Neg (NEG) Urine Barbiturates Neg (NEG) Urine Phencyclidine Screen Neg (NEG) Urine Amphetamine/Methamphetamine Neg (NEG) Urine Benzodiazepines Screen Neg (NEG) Urine Cocaine Screen Neg (NEG) Urine Cannabinoids Screen Neg (NEG) Urine Ethyl Alcohol Neg (NEG) White Blood Count 7.6 x10^3/uL (4.0-11.0) Red Blood Count 5.48 x10^6/uL (3.50-5.40) Hemoglobin 15.6 g/dL (12.0-15.5) Hematocrit 47.8 % (36.0-47.0) Mean Corpuscular Volume 87 fL (79-100) Mean Corpuscular Hemoglobin 28 pg (25-35) Mean Corpuscular Hemoglobin Concent 33 g/dL (31-37) Red Cell Distribution Width 15.2 % (11.5-14.5) Platelet Count 183 x10^3/uL (140-400) Neutrophils (%) (Auto) 79 % (31-73) Lymphocytes (%) (Auto) 17 % (24-48) Monocytes (%) (Auto) 3 % (0-9) Eosinophils (%) (Auto) 0 % (0-3) Basophils (%) (Auto) 1 % (0-3) Neutrophils # (Auto) 6.1 x10^3/uL (1.8-7.7) Lymphocytes # (Auto) 1.3 x10^3/uL (1.0-4.8) Monocytes # (Auto) 0.3 x10^3/uL (0.0-1.1) Eosinophils # (Auto) 0.0 x10^3/uL (0.0-0.7) Basophils # (Auto) 0.1 x10^3/uL (0.0-0.2) Prothrombin Time 13.0 SEC (11.7-14.0) Prothromb Time International Ratio 1.0 (0.8-1.1) Activated Partial Thromboplast Time 50 SEC (24-38) Sodium Level 143 mmol/L (136-145) Potassium Level 3.9 mmol/L (3.5-5.1) Chloride Level 103 mmol/L (98-107) Carbon Dioxide Level 25 mmol/L (21-32) Anion Gap 15 (6-14) Blood Urea Nitrogen 24 mg/dL (7-20) Creatinine 0.9 mg/dL (0.6-1.0) Estimated GFR (Cockcroft-Gault) 78.7 BUN/Creatinine Ratio 27 (6-20) Glucose Level 145 mg/dL (70-99) Calcium Level 9.8 mg/dL (8.5-10.1) Total Bilirubin 0.7 mg/dL (0.2-1.0) Aspartate Amino Transf (AST/SGOT) 23 U/L (15-37) Alanine Aminotransferase (ALT/SGPT) 14 U/L (14-59) Alkaline Phosphatase 81 U/L (46-116) Creatine Kinase 167 U/L (26-192) Total Protein 9.2 g/dL (6.4-8.2) Albumin 4.7 g/dL (3.4-5.0) Albumin/Globulin Ratio 1.0 (1.0-1.7) Lipase 89 U/L (73-393) Medications Current Medications Sodium Chloride 1,000 ml @ 1,000 mls/hr Q1H IV Last administered on 07/19/19at 10:48; Start 07/19/19 at 11:00; Stop 07/19/19 at 11:59; Status DC Ondansetron HCl (Zofran) 4 mg 1X ONCE IV Last administered on 07/19/19at 10:49; Start 07/19/19 at 10:45; Stop 07/19/19 at 10:46; Status DC Pantoprazole Sodium (PROTONIX VIAL for IV PUSH) 40 mg 1X ONCE IVP Last administered on 07/19/19at 10:49; Start 07/19/19 at 10:45; Stop 07/19/19 at 10:46; Status DC Fentanyl Citrate (Fentanyl 2ml Vial) 50 mcg 1X ONCE IVP Last administered on 07/19/19at 10:50; Start 07/19/19 at 10:45; Stop 07/19/19 at 10:46; Status DC Haloperidol Lactate (Haldol Inj) 5 mg 1X ONCE IVP Last administered on 9at 11:05; Start 07/19/19 at 11:00; Stop 07/19/19 at 11:01; Status DC Sodium Chloride 1,000 ml @ 125 mls/hr Q8H IV Last administered on 07/20/19at 06:26; Start 07/19/19 at 11:02; Stop 07/20/19 at 11:01 Pantoprazole Sodium 80 mg/ Sodium Chloride 100 ml @ 10 mls/hr Q10H IV Last administered on 07/20/19at 07:15; Start 07/19/19 at 11:30 Morphine Sulfate (Morphine Sulfate) 2 mg 1X ONCE IV Last administered on 07/19/19at 11:56; Start 07/19/19 at 11:45; Stop 07/19/19 at 11:46; Status DC Hydralazine HCl (Apresoline Inj) 20 mg 1X ONCE IVP Last administered on 07/19/19at 12:09; Start 07/19/19 at 12:15; Stop 07/19/19 at 12:16; Status DC Lorazepam (Ativan Inj) 2 mg 1X ONCE IVP Last administered on 07/19/19at 12:41; Start 07/19/19 at 12:45; Stop 07/19/19 at 12:46; Status DC Labetalol HCl (Normodyne Iv Push) 10 mg 1X ONCE IVP Last administered on 07/19/19at 13:21; Start 07/19/19 at 13:15; Stop 07/19/19 at 13:16; Status DC Amlodipine Besylate (Norvasc) 10 mg DAILY PO Last administered on 07/20/19at 09:01; Start 07/20/19 at 09:00 Cyclobenzaprine HCl (Flexeril) 10 mg PRN TID PRN PO MUSCLE SPASMS; Start 07/19/19 at 13:30 Gabapentin (Neurontin) 300 mg TID PO Last administered on 07/20/19at 08:56; Start 07/19/19 at 14:00 Acetaminophen/ Hydrocodone Bitart (Lortab 5/325) 1 tab PRN Q4HRS PRN PO PAIN Last administered on 07/19/19at 22:48; Start 07/19/19 at 13:30 Ondansetron HCl (Zofran Odt) 4 mg Q8HRS PRN PO nausea; Start 07/19/19 at 13:30 Pantoprazole Sodium (Protonix) 40 mg DAILYAC PO ; Start 07/20/19 at 07:30; Status UNV Prazosin HCl (Minipress) 1 mg BID PO Last administered on 07/20/19at 08:58; Start 07/19/19 at 21:00 Non-Formulary Medication (Ranitidine Hcl ) 1 cap BID PO ; Start 07/19/19 at 21:00; Status UNV Metoprolol Tartrate (Lopressor Vial) 5 mg PRN Q6HRS PRN IVP HYPERTENSION; Start 07/19/19 at 13:30 Metoprolol Tartrate (Lopressor) 100 mg BID PO Last administered on 07/20/19at 08:59; Start 07/19/19 at 13:30 Haloperidol Lactate (Haldol Inj) 5 mg PRN Q12HR PRN IVP AGITATION; Start 07/19/19 at 17:00 Active Scripts Active Vitamin D3 (Cholecalciferol (Vitamin D3)) 5,000 Unit Capsule 5,000 Unit PO DAILY 30 Days Minipress (Prazosin Hcl) 1 Mg Capsule 1 Mg PO BID 30 Days Hydrocodone-Apap 5-325 (Hydrocodone Bit/Acetaminophen) 1 Tab Tablet 1 Tab PO PRN Q4HRS PRN 6 Days Amlodipine Besylate 10 Mg Tablet 10 Mg PO DAILY 30 Days Pantoprazole Sodium (Pantoprazole Sodium) 40 Mg Tablet.dr 40 Mg PO DAILYAC Zofran Odt (Ondansetron) 4 Mg Tab.rapdis 1 Tab SL Q8HRS Reported Ranitidine Hcl 150 Mg Capsule 1 Cap PO BID Cyclobenzaprine Hcl 10 Mg Tablet 1 Tab PO PRN TID PRN Gabapentin 300 Mg Capsule 300 Mg PO TID Vitals/I & O Vital Sign - Last 24 Hours 07/19/19 07/19/19 07/19/19 07/19/19 10:07 10:22 10:50 10:52 Temp 97.9 97.9 Pulse 100 110 Resp 24 24 B/P (MAP) 226/136 (166) 216/137 (163) 223/126 (158) Pulse Ox 100 100 100 O2 Delivery Room Air Room Air Room Air 07/19/19 07/19/19 07/19/19 07/19/19 11:20 11:22 11:55 11:56 Pulse 98 Resp 20 B/P (MAP) 218/121 (153) 243/171 (195) Pulse Ox 96 100 96 O2 Delivery Room Air Room Air Room Air Room Air 07/19/19 07/19/19 07/19/19 07/19/19 12:06 12:08 12:09 12:09 Pulse 102 102 102 104 Resp 19 B/P (MAP) 222/133 (162) 229/127 (161) 230/134 (166) 222/133 Pulse Ox 99 99 O2 Delivery Room Air Room Air Room Air 07/19/19 07/19/19 07/19/19 07/19/19 12:10 12:11 12:25 12:26 Pulse 102 106 128 Resp 19 B/P (MAP) 224/133 (163) 221/129 (159) Pulse Ox 99 99 96 O2 Delivery Room Air Room Air Room Air 07/19/19 07/19/19 07/19/19 07/19/19 12:29 12:41 13:11 13:19 Pulse 138 136 134 140 Resp 31 22 23 B/P (MAP) 224/128 (160) 202/118 (146) 210/133 (158) 215/136 (162) Pulse Ox 100 O2 Delivery Room Air Room Air Room Air Room Air 07/19/19 07/19/19 07/19/19 07/19/19 13:20 13:21 13:21 13:36 Pulse 140 143 140 114 Resp 23 22 B/P (MAP) 196/125 (148) 215/136 182/116 (138) 158/120 (133) Pulse Ox 100 100 O2 Delivery Room Air Room Air Room Air 07/19/19 07/19/19 07/19/19 07/19/19 14:00 14:45 19:02 20:15 Temp 99.4 98.1 99.4 98.1 Pulse 106 91 Resp 18 18 B/P (MAP) 118/78 (91) 117/64 (81) Pulse Ox 99 100 O2 Delivery Room Air Room Air Room Air Room Air 07/19/19 07/19/19 07/19/19 07/20/19 22:43 22:48 23:35 01:11 Temp 98.1 98.1 Pulse 84 84 B/P (MAP) 129/69 129/69 (89) Pulse Ox 100 O2 Delivery Room Air Room Air Room Air 07/20/19 07/20/19 07/20/19 07/20/19 03:15 07:00 08:58 08:59 Temp 97.7 98.2 97.7 98.2 Pulse 87 64 64 64 Resp 18 18 B/P (MAP) 136/92 (107) 133/86 (102) 133/86 133/86 Pulse Ox 100 100 O2 Delivery Room Air Room Air 07/20/19 09:01 Pulse 64 B/P (MAP) 133/86 Intake and Output 07/19/19 07/19/19 07/20/19 15:00 23:00 07:00 Intake Total 1000 ml 440 ml 300 ml Balance 1000 ml 440 ml 300 ml BENJAMÍN DOBBINS MD Jul 20, 2019 09:37
[2019-07-20 11:00] VITALS: BP 106/69
--- NOTE | 2019-07-20 13:00 | NUR ---
pt was discahrged home with selfcare, no scripts given to pt. pt was wheeled down to main entrance to be taken home by friends. Andriy Dumont RN
[2019-08-01] MEDS ORDERED: ONDA4TAB12 PO (22:53)
== END 2019-07-20 12:30 | disposition home or self-care (01) | DRG 395 ==
LOC: ER 09:45 → 6 SOUTH 10:38
PROVIDERS: ADMIT Internal Medicine; ATTEND Internal Medicine
DX: R11.15 Cyclical vomiting syndrome unrelated to migraine (principal); F32.9 Major depressive disorder, single episode, unspecified; I10 Essential (primary) hypertension; F41.9 Anxiety disorder, unspecified; E78.5 Hyperlipidemia, unspecified; K21.9 Gastro-esophageal reflux disease without esophagitis; M06.9 Rheumatoid arthritis, unspecified; Z87.11 Personal history of peptic ulcer disease; Z88.0 Allergy status to penicillin; Z83.3 Family history of diabetes mellitus
CPT/HCPCS: 36415; 80053; 80307; 81001; 82550; 83690; 85025; 85610; 85730; 86850; 86900; 86901; 93005; 96361; 96374; 96375; 99292; C9113; J0360; J1630; J2060; J2270; J2405; J3010; J3490; J7030; 99291-25; G0378

== ENCOUNTER 2019-08-10 08:34 | Emergency (ER) | payer SELFPAY ==
[~2019-08-10] VITALS: Ht 170.2 cm; Wt 54.4 kg
[~2019-08-10 08:34] MED LIST changes: +ONDA4TAB12 PO
[2019-08-10] MEDS ORDERED: IV NORMAL SALINE 1000ML BAG 1,000 ML IV SCH (09:00)
[2019-08-10] MEDS ORDERED: HALOPERIDOL LACTATE 5 MG/ML VIAL. IVP ONE (09:00)
[2019-08-10] MEDS: MORPHINE SULFATE 4 MG/ML VIAL. IV/SQ PRN ×3 (09:15→10:09)
[2019-08-10] MEDS ORDERED: METOCLOPRAMIDE HCL 10 MG/2 ML VIAL. IVP ONE (09:30)
[2019-08-10] MEDS ORDERED: diphenhydrAMINE 50 MG/ML VIAL IVP ONE (09:30)
[2019-08-10 09:33] LABS: BASO # 0.1 x10^3/uL (0.0-0.2); BASO % 1 % (0-3); EOS % 0 % (0-3); HEMATOCRIT 44.6 % (36.0-47.0); HEMOGLOBIN 14.5 g/dL (12.0-15.5); LYMPH # 2.1 x10^3/uL (1.0-4.8); LYMPH % 22 % (24-48); MEAN CORPUSCULAR HEMOGLOBIN 28 pg (25-35); MEAN CORPUSCULAR HGB CONC 33 g/dL (31-37); MEAN CORPUSCULAR VOLUME 86 fL (79-100); MONO # 0.5 x10^3/uL (0.0-1.1); MONO % 5 % (0-9); NEUT # 6.7 x10^3/uL (1.8-7.7); NEUT % 71 % (31-73); PLATELET COUNT 230 x10^3/uL (140-400); RED BLOOD COUNT 5.17 x10^6/uL (3.50-5.40); RED CELL DISTRIBUTION WIDTH 14.8 % (11.5-14.5); WHITE BLOOD COUNT 9.4 x10^3/uL (4.0-11.0)
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
[2019-08-10 09:41] LABS: CALCIUM 10.3 mg/dL (8.5-10.1); GFR 69.7; POTASSIUM 3.5 mmol/L (3.5-5.1)
[2019-08-10 09:43] LABS: BILIRUBIN,URINE NEGATIVE (NEG); CLARITY,URINE CLEAR; COLOR,URINE YELLOW; NITRITE,URINE NEGATIVE (NEG); PROTEIN,URINE NEGATIVE (NEG-TRACE); UROBILINOGEN,URINE 0.2 mg/dL (0.2 mg/dL)
[2019-08-10 09:47] LABS: ALBUMIN 4.5 g/dL (3.4-5.0); TOTAL BILIRUBIN 0.4 mg/dL (0.2-1.0); TOTAL PROTEIN 8.9 g/dL (6.4-8.2)
[2019-08-10 09:50] LABS: BARBITURATES NEG (NEG); BENZODIAZEPINES NEG (NEG); CANNABINOIDS NEG (NEG); COCAINE NEG (NEG); METHADONE NEG (NEG); OPIATES POS (NEG); PHENCYCLIDINE NEG (NEG)
[2019-08-10 09:57] LABS: AMPHETAMINE/METHAMPHETAMINE NEG (NEG)
[2019-08-10 10:13] LABS: BACTERIA,URINE FEW /HPF (0-FEW); SQUAMOUS EPITHELIAL CELL,UR MANY /LPF; WBC,URINE 0 /HPF (0-4)
[2019-08-10 10:45] VITALS: BP 158/83
[2019-08-10] MEDS ORDERED: HYDROmorphone 2 MG/ML VIAL IV ONE (11:00)
[2019-08-10] MEDS ORDERED: ONDA4TAB12 PO (11:20)
[2019-08-10] MEDS ORDERED: LIDO:MAALOX 1:1 20 ML SINGLE DOSE. SWSW ONE (12:00)
[2019-08-15] MEDS ORDERED: ACET325T9 PO (12:01)
[2019-08-15] MEDS ORDERED: MAG30ORA2 PO (12:01)
== END 2019-08-10 11:50 | disposition home or self-care (01) ==
LOC: ER 08:34
DX: R11.15 Cyclical vomiting syndrome unrelated to migraine (principal); R10.13 Epigastric pain; I10 Essential (primary) hypertension; E11.9 Type 2 diabetes mellitus without complications; Z88.0 Allergy status to penicillin
CPT/HCPCS: 36415; 80053; 80307; 81001; 83690; 85025; 96361; 96374; 96375; 96376; 99284; J1170; J1200; J1630; J2270; J2765; J7030

== ENCOUNTER 2020-02-17 18:53 | Emergency (ER) | payer SELFPAY ==
[~2020-02-17] VITALS: Ht 170.2 cm; Wt 59.0 kg
[~2020-02-17 18:53] MED LIST changes: +ACET325T9 PO; +DOCU-153 PO; +MAG30ORA2 PO; +OXYC-411 PO; -POTA10TA12 PO; +POTASSIUM CHLO10 ME1 PO; +PRAZ1CAP2 PO
[2020-02-17 19:14] VITALS: BP 119/77
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
[2020-02-17] MEDS ORDERED: ACETAMINOPHEN 500 MG TABLET PO ONE (20:00)
== END 2020-02-17 20:01 | disposition left against medical advice (07) ==
LOC: ER 18:53
DX: M54.5 Low back pain (principal); R11.2 Nausea with vomiting, unspecified; I10 Essential (primary) hypertension; E11.9 Type 2 diabetes mellitus without complications; F17.200 Nicotine dependence, unspecified, uncomplicated; Z98.890 Other specified postprocedural states; Z88.0 Allergy status to penicillin
CPT/HCPCS: 99281

== ENCOUNTER 2020-03-04 12:23 | Emergency (ER) | payer SELFPAY ==
[~2020-03-04] VITALS: Ht 170.2 cm; Wt 58.0 kg
[2020-03-04 13:10] LABS: BILIRUBIN,URINE NEGATIVE (NEG); CLARITY,URINE CLEAR; COLOR,URINE YELLOW; NITRITE,URINE NEGATIVE (NEG); PH,URINE 7.5 (<5.0-8.0); PROTEIN,URINE NEGATIVE (NEG-TRACE); UROBILINOGEN,URINE 0.2 mg/dL (0.2 mg/dL)
[2020-03-04] MEDS ORDERED: HALOPERIDOL LACTATE 5 MG/ML VIAL. IM ONE (13:15)
[2020-03-04] MEDS ORDERED: HALOPERIDOL LACTATE 5 MG/ML VIAL. IVP ONE (13:15)
[2020-03-04 13:22] LABS: WBC,URINE OCC /HPF (0-4)
[2020-03-04 13:23] LABS: BACTERIA,URINE 0 /HPF (0-FEW); SQUAMOUS EPITHELIAL CELL,UR OCC /LPF
[2020-03-04 13:54] LABS: CALCIUM 10.2 mg/dL (8.5-10.1); GFR 69.4; POTASSIUM 3.2 mmol/L (3.5-5.1)
[2020-03-04] MEDS ORDERED: LIDO:MAALOX 1:1 20 ML SINGLE DOSE. ONE (14:35)
[2020-03-04] MEDS ORDERED: LIDO:MAALOX 1:1 20 ML SINGLE DOSE. SWSW ONE (14:45)
[2020-03-04] MEDS ORDERED: FAMOTIDINE 20 MG TABLET. PO ONE (15:30)
[2020-03-04] MEDS ORDERED: amLODIPine BESYLATE 5 MG TABLET PO ONE (15:30)
[2020-03-04] MEDS ORDERED: HYOSCYAMINE 0.125 MG TAB.RAPDIS PO PRN (15:30)
[2020-03-04 16:00] VITALS: BP 115/74
--- NOTE | 2020-03-05 08:32 | PHYS DOC ---
Past Medical History Past Medical History: Hypertension, P.U.D., Other Additional Past Medical Histor: stomach ulcers, CYCLIC VOMITING, DM, SEPSIS, NARCOTIC DEPENDENCE, GASTRITIS Past Surgical History: Other Additional Past Surgical Histo: foot surgery, explor. abd sx Smoking Status: Current Every Day Smoker Alcohol Use: None Drug Use: None General Adult EDM: Chief Complaint: ABDOMINAL PAIN HPI: HPI: Patient is a 55 year old female with a history of narcotic dependence, stomach ulcers, cyclic vomiting who presents with epigastric abdominal pain and vomiting. This is very consistent with her chronic abdominal pain. She does not feel like it is any different. She states she has not been able to keep anything down all day. She is requesting Haldol and morphine. She denies any fever, diarrhea, trauma, chest pain, shortness of breath. Review of Systems: Review of Systems: General: Denies fever, chills, sweats, fatigue Eyes: Denies drainage, blurred vision HENT: Denies rhinorrhea, sore throat Respiratory: Denies cough, shortness of breath, wheezing Cardiac: Denies edema, palpitations, chest pain GI: Reports abdominal pain, N/V MSK: Denies back pain, neck pain Skin: Denies rash, jaundice Neuro: Denies headache, dizziness Psychiatric: Denies SI/HI Heart Score: Risk Factors: Risk Factors: DM, Current or recent (<one month) smoker, HTN, HLP, family history of CAD, obesity. Risk Scores: Score 0 - 3: 2.5% MACE over next 6 weeks - Discharge Home Score 4 - 6: 20.3% MACE over next 6 weeks - Admit for Clinical Observation Score 7 - 10: 72.7% MACE over next 6 weeks - Early Invasive Strategies Current Medications: Current Medications Medications (Trade) Dose Ordered Sig/Emile Start Time Stop Time Status Last Admin Dose Admin Amlodipine Besylate (Norvasc) 10 mg 1X ONCE 03/04/20 15:30 03/04/20 15:31 DC Famotidine (Pepcid) 20 mg 1X ONCE 03/04/20 15:30 03/04/20 15:31 DC 03/04/20 15:42 20 MG Haloperidol Lactate (Haldol Inj) 5 mg 1X ONCE 03/04/20 13:15 03/04/20 13:16 DC 03/04/20 13:22 5 MG Hyoscyamine (Anaspaz) 0.125 mg PRN Q4HRS PRN 03/04/20 15:30 03/04/20 16:44 DC 03/04/20 15:42 0.125 MG Multi-Ingredient Mouthwash/Gargle (Gi Cocktail) 20 ml 1X ONCE 03/04/20 14:45 03/04/20 14:46 DC 03/04/20 14:39 20 ML Allergies: Allergies: Allergies Coded Allergies Type Severity Reaction Last Updated Verified Penicillins Allergy Intermediate HAS TOLERATED AMOXICILLIN 06/04/19 Yes Physical Exam: PE: Constitutional: Well developed, well nourished, Cooperative, anxious, non-toxic appearing HEENT: Normocephalic, atraumatic, oropharynx moist, EOMI, PERRL, no drainage from eyes, normal conjunctiva Neck: Supple, normal range of motion, no stridor Cardiovascular: RRR, 2+ radial pulses bilaterally, no edema Respiratory: CTA bilaterally, no respiratory distress, no wheezing/crackles Abdomen: Soft, nontender, nondistended, no masses Skin: Warm, dry, intact Extremities: No obvious deformities Neurologic: Alert and Oriented x3, motor and sensory function grossly normal, no focal deficits Psychologic: Anxious, rocking back and forth. No SI/HI Current Patient Data: Labs: Laboratory Tests Test 03/04/20 12:35 03/04/20 13:20 Urine Collection Type Unknown Urine Color Yellow Urine Clarity Clear Urine pH 7.5 (<5.0-8.0) Urine Specific [place] 1.010 (1.000-1.030) Urine Protein Negative mg/dL (NEG-TRACE) Urine Glucose (UA) 100 mg/dL (NEG) Urine Ketones (Stick) Negative mg/dL (NEG) Urine Blood Negative (NEG) Urine Nitrite Negative (NEG) Urine Bilirubin Negative (NEG) Urine Urobilinogen Dipstick 0.2 mg/dL (0.2 mg/dL) Urine Leukocyte Esterase Negative (NEG) Urine RBC 1-2 /HPF (0-2) Urine WBC Occ /HPF (0-4) Urine Squamous Epithelial Cells Occ /LPF Urine Bacteria 0 /HPF (0-FEW) Sodium Level 135 mmol/L (136-145) L Potassium Level 3.2 mmol/L (3.5-5.1) L Chloride Level 96 mmol/L (98-107) L Carbon Dioxide Level 23 mmol/L (21-32) Anion Gap 16 (6-14) H Blood Urea Nitrogen 17 mg/dL (7-20) Creatinine 1.0 mg/dL (0.6-1.0) Estimated GFR (Cockcroft-Gault) 69.4 Glucose Level 151 mg/dL (70-99) H Calcium Level 10.2 mg/dL (8.5-10.1) H Laboratory Tests 03/04/20 13:20 Vital Signs: Vital Signs Date Time Temp Pulse Resp B/P (MAP) Pulse Ox O2 Delivery O2 Flow Rate FiO2 03/04/20 16:00 90 16 115/74 (88) 99 Room Air 03/04/20 12:56 97.9 97.9 EKG: EKG: [] Radiology/Procedures: Radiology/Procedures: [] Course & Med Decision Making: Course & Med Decision Making Pertinent Labs and Imaging studies reviewed. (See chart for details) Patient 55-year-old female presents to the emergency room complaining of abdominal pain that is consistent with her cyclic vomiting and ulcers. Patient is requesting narcotic pain medicine. I discussed with her that this is not an appropriate treatment at this time. We will give her Haldol, Levsin, Pepcid. Patient would like to go home. Lab work is unremarkable. Patient will be discharged home with follow-up with primary care. Patient's test results and vitals while in the ED were fully reviewed and discussed with the patient. Patient is stable and at this time does not need admission to the hospital. We have discussed strict return precautions and the importance of following up with their Primary Care Physician. Patient stated understanding and was given an opportunity to ask any questions. Dragon Disclaimer: Dragon Disclaimer: This electronic medical record was generated, in whole or in part, using a voice recognition dictation system. Departure Departure Impression: Primary Impression: Abdominal pain Disposition: 01 HOME, SELF-CARE Condition: GOOD Patient Instructions: Gastritis, Adult, [id number] Justicifation of Admission Dx: Justifications for Admission: Justification of Admission Dx: ARIELLE Guillaume MD Mar 05, 2020 08:32
== END 2020-03-04 16:44 | disposition home or self-care (01) ==
LOC: ER 12:23
DX: R10.13 Epigastric pain (principal); G89.29 Other chronic pain; R11.2 Nausea with vomiting, unspecified; R42 Dizziness and giddiness; R53.83 Other fatigue; I10 Essential (primary) hypertension; F17.200 Nicotine dependence, unspecified, uncomplicated; Z88.0 Allergy status to penicillin
CPT/HCPCS: 36415; 80048; 81001; 96372; 99285; J1630

== ENCOUNTER 2020-05-25 17:10 | Inpatient (IN) | payer SELFPAY ==
[~2020-05-25] VITALS: Ht 170.2 cm; Wt 50.0 kg
[~2020-05-25 17:10] MED LIST changes: -OXYC-411 PO; +OXYC1TAB20 PO
[2020-05-25 18:54] LABS: BILIRUBIN,URINE NEGATIVE (NEG); CLARITY,URINE CLEAR; COLOR,URINE YELLOW; NITRITE,URINE NEGATIVE (NEG); PROTEIN,URINE >=300 mg/dL (NEG-TRACE); UROBILINOGEN,URINE 0.2 mg/dL (0.2 mg/dL)
[2020-05-25 18:57] LABS: AMPHETAMINE/METHAMPHETAMINE NEG (NEG); BARBITURATES NEG (NEG); BENZODIAZEPINES NEG (NEG); CANNABINOIDS NEG (NEG); COCAINE NEG (NEG); METHADONE NEG (NEG); OPIATES NEG (NEG); PHENCYCLIDINE NEG (NEG)
[2020-05-25 19:06] LABS: SQUAMOUS EPITHELIAL CELL,UR FEW /LPF
[2020-05-25 19:08] LABS: AMORPHOUS SEDIMENT,UR PRESENT /HPF; BACTERIA,URINE FEW /HPF (0-FEW); HYALINE CASTS, URINE MODERATE /HPF
[2020-05-25 19:34] LABS: CALCIUM 10.4 mg/dL (8.5-10.1); CREATININE 1.9 mg/dL (0.6-1.0); GFR 33.1; TOTAL BILIRUBIN 0.7 mg/dL (0.2-1.0); TOTAL PROTEIN 8.1 g/dL (6.4-8.2)
--- NOTE | 2020-05-25 19:42 | PHYS DOC ---
Past Medical History Past Medical History: Diabetes-Type II, Hypertension, P.U.D., Other Additional Past Medical Histor: stomach ulcers,CYCLIC VOMITING,SEPSIS NARCOTIC DEPENDENCE GASTRITIS Past Surgical History: Other Additional Past Surgical Histo: foot surgery, explor. abd sx Smoking Status: Current Every Day Smoker Additional Information: 0.25 PPD Alcohol Use: None Drug Use: None General Adult EDM: Chief Complaint: WEAKNESS/GENERALIZED HPI: HPI: Patient is a 55 year old female with history of diabetes type 2, hypertension, peptic ulcer disease, who presents to the ED today stating one of her family members is a "doctor" who told that she is having kidney failure. Patient states she has had trouble with voiding. Patient states for the last couple days she has had episode where it is painful to void and occasionally she voids on herself. Patient denies any injuries to her lumbar spine. Denies any abdominal pain, nausea or vomiting. Denies any fever. Denies any back pain. Review of Systems: Review of Systems: Constitutional: Denies fever or chills. [] Eyes: Denies change in visual acuity. [] HENT: Denies nasal congestion or sore throat. [] Respiratory: Denies cough or shortness of breath. [] Cardiovascular: Denies chest pain or edema. [] GI: Denies abdominal pain, nausea, vomiting, bloody stools or diarrhea. [] : Patient reports dysuria Musculoskeletal: Denies back pain or joint pain. [] Integument: Denies rash. [] Neurologic: Denies headache, focal weakness or sensory changes. [] Endocrine: Denies polyuria or polydipsia. [] Lymphatic: Denies swollen glands. [] Psychiatric: Denies depression or anxiety. [] Heart Score: Risk Factors: Risk Factors: DM, Current or recent (<one month) smoker, HTN, HLP, family history of CAD, obesity. Risk Scores: Score 0 - 3: 2.5% MACE over next 6 weeks - Discharge Home Score 4 - 6: 20.3% MACE over next 6 weeks - Admit for Clinical Observation Score 7 - 10: 72.7% MACE over next 6 weeks - Early Invasive Strategies Allergies: Allergies: Allergies Coded Allergies Type Severity Reaction Last Updated Verified Penicillins Allergy Intermediate HAS TOLERATED AMOXICILLIN 06/04/19 Yes Physical Exam: PE: Constitutional: Thin appearing patient,, no acute distress, non-toxic appearance. [] HENT: Normocephalic, atraumatic, bilateral external ears normal, oropharynx moist, no oral exudates, nose normal. [] Eyes: PERRLA, EOMI, conjunctiva normal, no discharge. [] Neck: Normal range of motion, no tenderness, supple, no stridor. [] Cardiovascular:Heart rate regular rhythm, no murmur [] Lungs & Thorax: Bilateral breath sounds clear to auscultation [] Abdomen: Bowel sounds normal, soft, no tenderness, no masses, no pulsatile ma sses. [] Skin: Warm, dry, no erythema, no rash. [] Back: No tenderness, no CVA tenderness. [] Extremities: No tenderness, no cyanosis, no clubbing, ROM intact, no edema. [] Neurologic: Alert and oriented X 3, normal motor function, normal sensory function, no focal deficits noted. [] Psychologic: Affect normal, judgement normal, mood normal. [] Current Patient Data: Labs: Laboratory Tests Test 05/25/20 18:34 05/25/20 18:57 Urine Collection Type Unknown Urine Color Yellow Urine Clarity Clear Urine pH 6.0 (<5.0-8.0) Urine Specific [place] 1.020 (1.000-1.030) Urine Protein >=300 mg/dL (NEG-TRACE) Urine Glucose (UA) 100 mg/dL (NEG) Urine Ketones (Stick) Negative mg/dL (NEG) Urine Blood Trace (NEG) Urine Nitrite Negative (NEG) Urine Bilirubin Negative (NEG) Urine Urobilinogen Dipstick 0.2 mg/dL (0.2 mg/dL) Urine Leukocyte Esterase Negative (NEG) Urine RBC 1-2 /HPF (0-2) Urine WBC 1-4 /HPF (0-4) Urine Squamous Epithelial Cells Few /LPF Urine Amorphous Sediment Present /HPF Urine Bacteria Few /HPF (0-FEW) Urine Hyaline Casts Moderate /HPF Urine Mucus Mod /LPF Urine Opiates Screen Neg (NEG) Urine Methadone Screen Neg (NEG) Urine Barbiturates Neg (NEG) Urine Phencyclidine Screen Neg (NEG) Urine Amphetamine/Methamphetamine Neg (NEG) Urine Benzodiazepines Screen Neg (NEG) Urine Cocaine Screen Neg (NEG) Urine Cannabinoids Screen Neg (NEG) Urine Ethyl Alcohol Neg (NEG) Sodium Level 135 mmol/L (136-145) L Potassium Level 3.0 mmol/L (3.5-5.1) L Chloride Level 96 mmol/L (98-107) L Carbon Dioxide Level 30 mmol/L (21-32) Anion Gap 9 (6-14) Blood Urea Nitrogen 21 mg/dL (7-20) H Creatinine 1.9 mg/dL (0.6-1.0) H Estimated GFR (Cockcroft-Gault) 33.1 BUN/Creatinine Ratio 11 (6-20) Glucose Level 125 mg/dL (70-99) H Calcium Level 10.4 mg/dL (8.5-10.1) H Total Bilirubin 0.7 mg/dL (0.2-1.0) Aspartate Amino Transferase (AST) 27 U/L (15-37) Alanine Aminotransferase (ALT) 18 U/L (14-59) Alkaline Phosphatase 65 U/L (46-116) Total Protein 8.1 g/dL (6.4-8.2) Albumin 4.0 g/dL (3.4-5.0) Albumin/Globulin Ratio 1.0 (1.0-1.7) Lipase 690 U/L (73-393) H Ethyl Alcohol Level < 10 mg/dL (0-10) Laboratory Tests 05/25/20 18:57 Vital Signs: Vital Signs Date Time Temp Pulse Resp B/P (MAP) Pulse Ox O2 Delivery O2 Flow Rate FiO2 05/25/20 17:45 98.0 58 20 124/77 (93) 98 Room Air 98.0 EKG: EKG: [] Radiology/Procedures: Radiology/Procedures: [] Course & Med Decision Making: Course & Med Decision Making Pertinent Labs and Imaging studies reviewed. (See chart for details) This is a 55-year-old female patient well-known to this ED for peptic ulcer disease and hematemesis who presents today complaining of dysuria and concern she has kidney failure. Urine analysis negative for UTI. CBC with a WBC of 12.5, CMP with potassium of 3.0, oral potassium replacement ordered. Creatinine 1.9,, BUN 21, lipase 690, patient denies any alcohol use. Patient was admitted, GI consult placed spoke with Dr. Terrazas who accepted patient for admission. Tila Disclaimer: Tila Disclaimer: This electronic medical record was generated, in whole or in part, using a voice recognition dictation system. Departure Departure Impression: Primary Impression: Pancreatitis Qualified Codes: K85.90 - Acute pancreatitis without necrosis or infection, unspecified Additional Impressions: Acute renal failure Qualified Codes: N17.9 - Acute kidney failure, unspecified Hypokalemia Disposition: ADMITTED INPATIENT Condition: STABLE Referrals: UNKNOWN PCP NAME (PCP) Justicifation of Admission Dx: Justifications for Admission: Justification of Admission Dx: Yes (pancreatitis) GAIL GUSMAN TOW FEEDER May 25, 2020 19:42
[2020-05-25 19:54] LABS: BASO # 0.1 x10^3/uL (0.0-0.2); BASO % 0 % (0-3); EOS % 0 % (0-3); HEMATOCRIT 39.2 % (36.0-47.0); HEMOGLOBIN 12.8 g/dL (12.0-15.5); LYMPH # 2.2 x10^3/uL (1.0-4.8); LYMPH % 17 % (24-48); MEAN CORPUSCULAR HEMOGLOBIN 27 pg (25-35); MEAN CORPUSCULAR HGB CONC 33 g/dL (31-37); MEAN CORPUSCULAR VOLUME 83 fL (79-100); MONO # 1.4 x10^3/uL (0.0-1.1); MONO % 11 % (0-9); NEUT # 8.9 x10^3/uL (1.8-7.7); NEUT % 71 % (31-73); PLATELET COUNT 205 x10^3/uL (140-400); RED BLOOD COUNT 4.72 x10^6/uL (3.50-5.40); RED CELL DISTRIBUTION WIDTH 20.3 % (11.5-14.5); WHITE BLOOD COUNT 12.5 x10^3/uL (4.0-11.0)
[2020-05-25 20:15] LABS: PLT ESTIMATE ADEQUATE (ADEQUATE)
[2020-05-25 20:16] LABS: ANISOCYTOSIS MOD; POIKILOCYTOSIS SLIGHT; POLYCHROMASIA SLIGHT
[2020-05-25 20:17] LABS: HELMET CELLS OCC; SCHISTOCYTES OCC; SPHEROCYTES OCC
[2020-05-25] MEDS ORDERED: FAMOTIDINE 20 MG/2 ML VIAL IVP ONE (21:00)
[2020-05-25] MEDS ORDERED: MORPHINE SULFATE 10 MG/ML VIAL. IV ONE (21:00)
[2020-05-25] MEDS ORDERED: ONDANSETRON PF 4 MG/2 ML VIAL. IV PRN (21:15)
[2020-05-25] MEDS ORDERED: MORPHINE SULFATE 4 MG/ML VIAL. IV PRN (21:15)
[2020-05-25] MEDS ORDERED: IV NORMAL SALINE 1000ML BAG 1,000 ML IV ONE (21:15)
[2020-05-25] MEDS ORDERED: POTASSIUM CHLORIDE 20 MEQ TABLET.ER. PO PRN (21:30)
[2020-05-25] MEDS ORDERED: DEXTROSE 50% 25 GM / 50ML DISP.SYRIN. IV PRN (21:30)
[2020-05-25] MEDS ORDERED: SENNOSIDES 8.6 MG TABLET PO PRN (21:30)
[2020-05-25] MEDS ORDERED: POTASSIUM CHLORIDE 10MEQ 100 ML IV PRN (21:30)
[2020-05-25] MEDS ORDERED: DOCUSATE SODIUM 100 MG CAPSULE. PO PRN ×2 (21:30→23:30)
[2020-05-25] MEDS ORDERED: ONDANSETRON PF 4 MG/2 ML VIAL. IVP PRN (21:30)
[2020-05-25] MEDS: MAGNESIUM SULFATE 2GM 50 ML IV SCH (22:00)
[2020-05-25] MEDS ORDERED: OXYC1TAB20 PO (22:07)
[2020-05-25] MEDS ORDERED: SUCR1TAB PO (22:07)
[2020-05-25] MEDS ORDERED: GI COCTAIL PO (22:07)
[2020-05-25] MEDS: IV NORMAL SALINE 1000ML BAG 1,000 ML IV SCH (22:26)
[2020-05-25] MEDS: POTASSIUM CHLORIDE 10MEQ 100 ML IV SCH ×2 (22:55→23:42)
[2020-05-25 23:00] VITALS: BP 106/77
[2020-05-25] MEDS ORDERED: ONDANSETRON ODT 4 MG TAB.RAPDIS. PO PRN (23:30)
[2020-05-25] MEDS ORDERED: ACETAMINOPHEN 325 MG TABLET. PO PRN (23:30)
[2020-05-25] MEDS ORDERED: MAG HYDROX/ALUMINUM HYD/SIMETH 30 ML ORAL.SUSP PO PRN (23:30)
[2020-05-25] MEDS: oxyCODONE/APAP 10/325 1 TAB TABLET PO PRN (23:42)
[2020-05-25] MEDS ORDERED: MORPHINE SULFATE 2 MG/ML VIAL. IV PRN (23:45)
[2020-05-26] MEDS: POTASSIUM CHLORIDE 10MEQ 100 ML IV SCH ×2 (00:42→01:43)
[2020-05-26 03:00] VITALS: BP 105/78
[2020-05-26 07:00] VITALS: BP 94/65
[2020-05-26 07:22] LABS: BASO # 0.1 x10^3/uL (0.0-0.2); BASO % 1 % (0-3); EOS % 1 % (0-3); HEMATOCRIT 35.8 % (36.0-47.0); HEMOGLOBIN 11.7 g/dL (12.0-15.5); LYMPH # 3.5 x10^3/uL (1.0-4.8); LYMPH % 32 % (24-48); MEAN CORPUSCULAR HEMOGLOBIN 27 pg (25-35); MEAN CORPUSCULAR HGB CONC 33 g/dL (31-37); MEAN CORPUSCULAR VOLUME 83 fL (79-100); MONO # 1.2 x10^3/uL (0.0-1.1); MONO % 11 % (0-9); NEUT % 56 % (31-73); PLATELET COUNT 220 x10^3/uL (140-400); RED BLOOD COUNT 4.31 x10^6/uL (3.50-5.40); RED CELL DISTRIBUTION WIDTH 20.7 % (11.5-14.5); WHITE BLOOD COUNT 10.8 x10^3/uL (4.0-11.0)
[2020-05-26] MEDS: IV NORMAL SALINE 1000ML BAG 1,000 ML IV SCH ×4 (07:22→17:22)
[2020-05-26] MEDS ORDERED: PANTOPRAZOLE IV PUSH 40 MG VIAL. IVP SCH (07:30)
[2020-05-26 07:35] LABS: MAGNESIUM 1.8 mg/dL (1.8-2.4); PHOSPHORUS 2.6 mg/dL (2.6-4.7)
[2020-05-26 07:40] LABS: ALBUMIN 3.1 g/dL (3.4-5.0); ALBUMIN/GLOBULIN RATIO 0.8 (1.0-1.7); CREATININE 1.7 mg/dL (0.6-1.0); GFR 37.6; TOTAL BILIRUBIN 0.3 mg/dL (0.2-1.0); TOTAL PROTEIN 6.8 g/dL (6.4-8.2)
[2020-05-26 07:44] LABS: POTASSIUM 3.2 mmol/L (3.5-5.1)
--- NOTE | 2020-05-26 07:59 | PDOC1 ---
History and Physical Date of Admission Date of Admission DATE: 05/26/20 TIME: 07:58 Identification/Chief Complaint Chief Complaint SEEN IN ER WITH atn , hypokalemia 55 year old female with history of diabetes type 2, hypertension, peptic ulcer disease, who presents to the ED today stating one of her family members is a "doctor" who told that she is having kidney failure. Patient states she has had trouble with voiding. Patient states for the last couple days she has had episode where it is painful to void and occasionally she voids on herself. Patient denies any injuries to her lumbar spine. Denies any abdominal pain, nausea or vomiting. Denies any fever. Past Medical History Past Medical History Past Medical History Past Medical History Past Medical History: Diabetes-Type II, Hypertension, P.U.D., Other Additional Past Medical Histor: stomach ulcers,CYCLIC VOMITING,SEPSIS NARCOTIC DEPENDENCE GASTRITIS Past Surgical History: Other Additional Past Surgical Histo: foot surgery, explor. abd sx Smoking Status: Current Every Day Smoker Additional Information: 0.25 PPD Alcohol Use: None Drug Use: None fhx COPD Cardiovascular: HTN, Hyperlipidemia Pulmonary: No pertinent hx GI: GERD, Other Hepatobiliary: No pertinent hx Psych: Anxiety, Depression Rheumatologic: Rheumatoid arthritis Infectious disease: No pertinent hx Renal/: No pertinent hx Endocrine: No pertinent hx Past Surgical History Past Surgical History: Other Family History Family History: Diabetes, Heart Disease, High Cholestrol Social History Smoke: No ALCOHOL: none Drugs: Marijuana Current Problem List Problem List Problems Medical Problems: (1) Acute renal failure Status: Acute (2) Hypokalemia Status: Acute (3) Pancreatitis Status: Acute Current Medications Current Medications Current Medications Morphine Sulfate (Morphine Sulfate) 5 mg 1X ONCE IV Last administered on 05/25/20at 21:07; Start 05/25/20 at 21:00; Stop 05/25/20 at 21:01; Status DC Famotidine (Pepcid Vial) 20 mg 1X ONCE IVP Last administered on 05/25/20at 21:07; Start 05/25/20 at 21:00; Stop 05/25/20 at 21:01; Status DC Ondansetron HCl (Zofran) 4 mg PRN Q8HRS PRN IV NAUSEA/VOMITING; Start 05/25/20 at 21:15; Stop 05/26/20 at 21:14 Morphine Sulfate (Morphine Sulfate) 4 mg PRN Q2HR PRN IV PAIN Last administered on 05/26/20at 02:42; Start 05/25/20 at 21:15; Stop 05/26/20 at 21:14 Sodium Chloride 1,000 ml @ 75 mls/hr 1X ONCE IV ; Start 05/25/20 at 21:15; Stop 05/26/20 at 10:34 Heparin Sodium (Porcine) (Heparin Sodium) 5,000 unit Q12HR SQ ; Start 05/26/20 at 09:00; Status Cancel Sennosides (Senna) 17.2 mg PRN BID PRN PO CONSTIPATION; Start 05/25/20 at 21:30 Docusate Sodium (Colace) 100 mg PRN DAILY PRN PO HARD STOOLS; Start 05/25/20 at 21:30; Stop 05/25/20 at 23:46; Status DC Ondansetron HCl (Zofran) 4 mg PRN Q6HRS PRN IVP NAUSEA/VOMITING; Start 05/25/20 at 21:30 Albuterol/ Ipratropium (Duoneb) 3 ml RTQID NEB ; Start 05/26/20 at 08:00 Potassium Chloride (Klor-Con) 40 meq 1X PRN PO PER PROTOCOL; Start 05/25/20 at 21:30 Magnesium Oxide (Magnesium Oxide) 400 mg BID PO ; Start 05/26/20 at 09:00; Stop 05/27/20 at 21:01 Potassium Chloride/Water 100 ml @ 100 mls/hr Q1H IV Last administered on 05/26/20at 01:43; Start 05/25/20 at 22:00; Stop 05/26/20 at 01:59; Status DC Magnesium Sulfate 50 ml @ 25 mls/hr Q24H IV ; Start 05/25/20 at 22:00; Stop 05/27/20 at 23:59 Potassium Chloride/Water 100 ml @ 100 mls/hr PRN Q1HR PRN IV low k; Start 05/25/20 at 21:30 Insulin Human Lispro (HumaLOG) 0-5 UNITS TIDWMEALS SQ ; Start 05/26/20 at 08:00 Dextrose (Dextrose 50%-Water Syringe) 12.5 gm PRN Q15MIN PRN IV SEE COMMENTS; Start 05/25/20 at 21:30 Sodium Chloride 1,000 ml @ 100 mls/hr Q10H IV Last administered on 05/25/20at 22:26; Start 05/25/20 at 21:22 Pantoprazole Sodium (PROTONIX VIAL for IV PUSH) 40 mg DAILYAC IVP ; Start 05/26/20 at 07:30 Acetaminophen (Tylenol) 650 mg PRN Q4HRS PRN PO TEMP OVER 100.4F OR MILD PAIN; Start 05/25/20 at 23:30 Docusate Sodium (Colace) 100 mg PRN BID PRN PO HARD STOOLS; Start 05/25/20 at 23:30 Gabapentin (Neurontin) 300 mg TID PO ; Start 05/26/20 at 09:00 Al Hydroxide/Mg Hydroxide (Mylanta Plus Xs) 30 ml PRN DAILY PRN PO HEARTBURN / GAS; Start 05/25/20 at 23:30 Ondansetron HCl (Zofran Odt) 4 mg PRN Q6HRS PRN PO NAUSEA; Start 05/25/20 at 23:30 Oxycodone/ Acetaminophen (Percocet 10/325) 1 tab PRN QID PRN PO PAIN MOD TO SEV Last administered on 05/25/20at 23:42; Start 05/25/20 at 23:30 Sucralfate (Carafate) 1 gm TIDAC PO ; Start 05/26/20 at 07:30 Morphine Sulfate (Morphine Sulfate) 2 mg PRN Q2HR PRN IV PAIN; Start 05/25/20 at 23:45 Polyethylene Glycol (miraLAX PACKET) 17 gm PRN DAILY PRN PO CONSTIPATION; Start 05/25/20 at 23:45 Active Scripts Active Dok (Docusate Sodium) 100 Mg Capsule 100 Mg PO PRN BID PRN 30 Days Mag-Al Plus Xs Suspension (Mag Hydrox/Al Hydrox/Simeth) 30 Ml Oral.susp 30 Ml PO PRN DAILY PRN 10 Days Tylenol (Acetaminophen) 325 Mg Tablet 650 Mg PO PRN Q4HRS PRN 30 Days Ondansetron Odt (Ondansetron) 4 Mg Tab.rapdis 1 Tab PO PRN Q6-8HRS PRN Vitamin D3 (Cholecalciferol (Vitamin D3)) 5,000 Unit Capsule 5,000 Unit PO DAILY 30 Days Pantoprazole Sodium (Pantoprazole Sodium) 40 Mg Tablet.dr 40 Mg PO DAILYAC Reported [GI coctail] 30 Ml PO PRN TID PRN Oxycodone-Acetaminophen 10-325 (Oxycodone Hcl/Acetaminophen) 1 Each Tablet 1 Tab PO PRN QID PRN Sucralfate 1 Gm Tablet 1 Tab PO TID Amlodipine Besylate 10 Mg Tablet 1 Tab PO DAILY 90 Days Gabapentin 300 Mg Capsule 300 Mg PO TID Allergies Allergies: Coded Allergies: Penicillins (Verified Allergy, Intermediate, HAS TOLERATED AMOXICILLIN, 06/04/19) ROS Review of System Review of Systems: Constitutional: Denies fever or chills. [] Eyes: Denies change in visual acuity. [] HENT: Denies nasal congestion or sore throat. [] Respiratory: Denies cough or shortness of breath. [] Cardiovascular: Denies chest pain or edema. [] GI: Denies abdominal pain, nausea, vomiting, bloody stools or diarrhea. [] : Patient reports dysuria Musculoskeletal: Denies back pain or joint pain. [] Integument: Denies rash. [] Neurologic: Denies headache, focal weakness or sensory changes. [] Endocrine: Denies polyuria or polydipsia. [] Lymphatic: Denies swollen glands. [] Psychiatric: Denies depression or anxiety. [] 14 PT ROS OTHERWISE NEG Musculoskeletal: Yes Joint Stiffness Vitals Vitals Vital Signs Date Time Temp Pulse Resp B/P (MAP) Pulse Ox O2 Delivery O2 Flow Rate FiO2 05/26/20 07:00 98.1 64 18 94/65 (75) 100 Room Air 98.1 Labs Labs Laboratory Tests Test 05/25/20 18:34 05/25/20 18:57 05/25/20 19:35 05/26/20 06:30 Urine Collection Type Unknown Urine Color Yellow Urine Clarity Clear Urine pH 6.0 (<5.0-8.0) Urine Specific [place] 1.020 (1.000-1.030) Urine Protein >=300 mg/dL (NEG-TRACE) Urine Glucose (UA) 100 mg/dL (NEG) Urine Ketones (Stick) Negative mg/dL (NEG) Urine Blood Trace (NEG) Urine Nitrite Negative (NEG) Urine Bilirubin Negative (NEG) Urine Urobilinogen Dipstick 0.2 mg/dL (0.2 mg/dL) Urine Leukocyte Esterase Negative (NEG) Urine RBC 1-2 /HPF (0-2) Urine WBC 1-4 /HPF (0-4) Urine Squamous Epithelial Cells Few /LPF Urine Amorphous Sediment Present /HPF Urine Bacteria Few /HPF (0-FEW) Urine Hyaline Casts Moderate /HPF Urine Mucus Mod /LPF Urine Opiates Screen Neg (NEG) Urine Methadone Screen Neg (NEG) Urine Barbiturates Neg (NEG) Urine Phencyclidine Screen Neg (NEG) Urine Amphetamine/Methamphetamine Neg (NEG) Urine Benzodiazepines Screen Neg (NEG) Urine Cocaine Screen Neg (NEG) Urine Cannabinoids Screen Neg (NEG) Urine Ethyl Alcohol Neg (NEG) Sodium Level 135 mmol/L (136-145) 133 mmol/L (136-145) Potassium Level 3.0 mmol/L (3.5-5.1) 3.2 mmol/L (3.5-5.1) Chloride Level 96 mmol/L (98-107) 96 mmol/L (98-107) Carbon Dioxide Level 30 mmol/L (21-32) 28 mmol/L (21-32) Anion Gap 9 (6-14) 9 (6-14) Blood Urea Nitrogen 21 mg/dL (7-20) 20 mg/dL (7-20) Creatinine 1.9 mg/dL (0.6-1.0) 1.7 mg/dL (0.6-1.0) Estimated GFR (Cockcroft-Gault) 33.1 37.6 BUN/Creatinine Ratio 11 (6-20) 12 (6-20) Glucose Level 125 mg/dL (70-99) 94 mg/dL (70-99) Calcium Level 10.4 mg/dL (8.5-10.1) 9.0 mg/dL (8.5-10.1) Magnesium Level 2.0 mg/dL (1.8-2.4) 1.8 mg/dL (1.8-2.4) Total Bilirubin 0.7 mg/dL (0.2-1.0) 0.3 mg/dL (0.2-1.0) Aspartate Amino Transf (AST/SGOT) 27 U/L (15-37) 27 U/L (15-37) Alanine Aminotransferase (ALT/SGPT) 18 U/L (14-59) 17 U/L (14-59) Alkaline Phosphatase 65 U/L (46-116) 46 U/L (46-116) Total Protein 8.1 g/dL (6.4-8.2) 6.8 g/dL (6.4-8.2) Albumin 4.0 g/dL (3.4-5.0) 3.1 g/dL (3.4-5.0) Albumin/Globulin Ratio 1.0 (1.0-1.7) 0.8 (1.0-1.7) Lipase 690 U/L (73-393) Ethyl Alcohol Level < 10 mg/dL (0-10) White Blood Count 12.5 x10^3/uL (4.0-11.0) 10.8 x10^3/uL (4.0-11.0) Red Blood Count 4.72 x10^6/uL (3.50-5.40) 4.31 x10^6/uL (3.50-5.40) Hemoglobin 12.8 g/dL (12.0-15.5) 11.7 g/dL (12.0-15.5) Hematocrit 39.2 % (36.0-47.0) 35.8 % (36.0-47.0) Mean Corpuscular Volume 83 fL (79-100) 83 fL (79-100) Mean Corpuscular Hemoglobin 27 pg (25-35) 27 pg (25-35) Mean Corpuscular Hemoglobin Concent 33 g/dL (31-37) 33 g/dL (31-37) Red Cell Distribution Width 20.3 % (11.5-14.5) 20.7 % (11.5-14.5) Platelet Count 205 x10^3/uL (140-400) 220 x10^3/uL (140-400) Neutrophils (%) (Auto) 71 % (31-73) 56 % (31-73) Lymphocytes (%) (Auto) 17 % (24-48) 32 % (24-48) Monocytes (%) (Auto) 11 % (0-9) 11 % (0-9) Eosinophils (%) (Auto) 0 % (0-3) 1 % (0-3) Basophils (%) (Auto) 0 % (0-3) 1 % (0-3) Neutrophils # (Auto) 8.9 x10^3/uL (1.8-7.7) 6.0 x10^3/uL (1.8-7.7) Lymphocytes # (Auto) 2.2 x10^3/uL (1.0-4.8) 3.5 x10^3/uL (1.0-4.8) Monocytes # (Auto) 1.4 x10^3/uL (0.0-1.1) 1.2 x10^3/uL (0.0-1.1) Eosinophils # (Auto) 0.0 x10^3/uL (0.0-0.7) 0.0 x10^3/uL (0.0-0.7) Basophils # (Auto) 0.1 x10^3/uL (0.0-0.2) 0.1 x10^3/uL (0.0-0.2) Platelet Estimate Adequate (ADEQUATE) Polychromasia Slight Poikilocytosis Slight Anisocytosis Mod Spherocytes Occ Helmet Cells Occ Schistocytes Occ Phosphorus Level 2.6 mg/dL (2.6-4.7) Laboratory Tests Test 05/25/20 18:34 05/25/20 18:57 05/25/20 19:35 05/26/20 06:30 Urine Collection Type Unknown Urine Color Yellow Urine Clarity Clear Urine pH 6.0 (<5.0-8.0) Urine Specific [place] 1.020 (1.000-1.030) Urine Protein >=300 mg/dL (NEG-TRACE) Urine Glucose (UA) 100 mg/dL (NEG) Urine Ketones (Stick) Negative mg/dL (NEG) Urine Blood Trace (NEG) Urine Nitrite Negative (NEG) Urine Bilirubin Negative (NEG) Urine Urobilinogen Dipstick 0.2 mg/dL (0.2 mg/dL) Urine Leukocyte Esterase Negative (NEG) Urine RBC 1-2 /HPF (0-2) Urine WBC 1-4 /HPF (0-4) Urine Squamous Epithelial Cells Few /LPF Urine Amorphous Sediment Present /HPF Urine Bacteria Few /HPF (0-FEW) Urine Hyaline Casts Moderate /HPF Urine Mucus Mod /LPF Urine Opiates Screen Neg (NEG) Urine Methadone Screen Neg (NEG) Urine Barbiturates Neg (NEG) Urine Phencyclidine Screen Neg (NEG) Urine Amphetamine/Methamphetamine Neg (NEG) Urine Benzodiazepines Screen Neg (NEG) Urine Cocaine Screen Neg (NEG) Urine Cannabinoids Screen Neg (NEG) Urine Ethyl Alcohol Neg (NEG) Sodium Level 135 mmol/L (136-145) 133 mmol/L (136-145) Potassium Level 3.0 mmol/L (3.5-5.1) 3.2 mmol/L (3.5-5.1) Chloride Level 96 mmol/L (98-107) 96 mmol/L (98-107) Carbon Dioxide Level 30 mmol/L (21-32) 28 mmol/L (21-32) Anion Gap 9 (6-14) 9 (6-14) Blood Urea Nitrogen 21 mg/dL (7-20) 20 mg/dL (7-20) Creatinine 1.9 mg/dL (0.6-1.0) 1.7 mg/dL (0.6-1.0) Estimated GFR (Cockcroft-Gault) 33.1 37.6 BUN/Creatinine Ratio 11 (6-20) 12 (6-20) Glucose Level 125 mg/dL (70-99) 94 mg/dL (70-99) Calcium Level 10.4 mg/dL (8.5-10.1) 9.0 mg/dL (8.5-10.1) Magnesium Level 2.0 mg/dL (1.8-2.4) 1.8 mg/dL (1.8-2.4) Total Bilirubin 0.7 mg/dL (0.2-1.0) 0.3 mg/dL (0.2-1.0) Aspartate Amino Transf (AST/SGOT) 27 U/L (15-37) 27 U/L (15-37) Alanine Aminotransferase (ALT/SGPT) 18 U/L (14-59) 17 U/L (14-59) Alkaline Phosphatase 65 U/L (46-116) 46 U/L (46-116) Total Protein 8.1 g/dL (6.4-8.2) 6.8 g/dL (6.4-8.2) Albumin 4.0 g/dL (3.4-5.0) 3.1 g/dL (3.4-5.0) Albumin/Globulin Ratio 1.0 (1.0-1.7) 0.8 (1.0-1.7) Lipase 690 U/L (73-393) Ethyl Alcohol Level < 10 mg/dL (0-10) White Blood Count 12.5 x10^3/uL (4.0-11.0) 10.8 x10^3/uL (4.0-11.0) Red Blood Count 4.72 x10^6/uL (3.50-5.40) 4.31 x10^6/uL (3.50-5.40) Hemoglobin 12.8 g/dL (12.0-15.5) 11.7 g/dL (12.0-15.5) Hematocrit 39.2 % (36.0-47.0) 35.8 % (36.0-47.0) Mean Corpuscular Volume 83 fL (79-100) 83 fL (79-100) Mean Corpuscular Hemoglobin 27 pg (25-35) 27 pg (25-35) Mean Corpuscular Hemoglobin Concent 33 g/dL (31-37) 33 g/dL (31-37) Red Cell Distribution Width 20.3 % (11.5-14.5) 20.7 % (11.5-14.5) Platelet Count 205 x10^3/uL (140-400) 220 x10^3/uL (140-400) Neutrophils (%) (Auto) 71 % (31-73) 56 % (31-73) Lymphocytes (%) (Auto) 17 % (24-48) 32 % (24-48) Monocytes (%) (Auto) 11 % (0-9) 11 % (0-9) Eosinophils (%) (Auto) 0 % (0-3) 1 % (0-3) Basophils (%) (Auto) 0 % (0-3) 1 % (0-3) Neutrophils # (Auto) 8.9 x10^3/uL (1.8-7.7) 6.0 x10^3/uL (1.8-7.7) Lymphocytes # (Auto) 2.2 x10^3/uL (1.0-4.8) 3.5 x10^3/uL (1.0-4.8) Monocytes # (Auto) 1.4 x10^3/uL (0.0-1.1) 1.2 x10^3/uL (0.0-1.1) Eosinophils # (Auto) 0.0 x10^3/uL (0.0-0.7) 0.0 x10^3/uL (0.0-0.7) Basophils # (Auto) 0.1 x10^3/uL (0.0-0.2) 0.1 x10^3/uL (0.0-0.2) Platelet Estimate Adequate (ADEQUATE) Polychromasia Slight Poikilocytosis Slight Anisocytosis Mod Spherocytes Occ Helmet Cells Occ Schistocytes Occ Phosphorus Level 2.6 mg/dL (2.6-4.7) Images Images STATUS: REG ER ORD. PHYSICIAN: FÉLIX BOB APRN REASON: abd pain, vomiting PROCEDURE: CT ABD PELV W/ IV CONTRST ONLY CT scan abdomen and pelvis with contrast 11/18/2019 CLINICAL HISTORY: Abdominal pain and vomiting. TECHNIQUE: After the intravenous administration of 75 cc of Omnipaque 300 only, contiguous, 5 mm axial sections were obtained through abdomen and pelvis. One or more of the following individualized dose reduction techniques were utilized for this study: 1. Automated exposure control. 2. Adjustment of the mA and/or kV according to patient size. 3. Use of iterative reconstruction technique. FINDINGS: Comparison study is dated 11/04/2019. Images through the lung bases are within normal limits. The liver, spleen, pancreas, and adrenal glands are within normal limits. An area of scarring is seen involving the superior/midpole of the right kidney, unchanged. A 5 mm rounded low-attenuation lesion is seen involving the mid/lower pole of the left kidney which likely represents a cyst. Atherosclerotic calcification of the abdominal aorta and its branches is seen. The abdominal aorta tapers normally. The gallbladder is contracted. No free fluid or free air is seen within the abdomen. There is no evidence of bowel obstruction. Postsurgical changes are seen involving the anterior abdominal wall. Images through the pelvis demonstrate the urinary bladder distended with urine. No free fluid is seen. No adnexal mass is noted. The osseous structures are unchanged. IMPRESSION: No acute abnormality is seen. 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 History of gastroparesis Chronic back pain History of polysubstance abuse - in remission PLAN======= ADMITTED replace k consult nephrology iv fluid support dvt prophylaxis, lovenox Smoking cessation education provided AVOID Nephrotoxic meds AIC UPIE IMMUNOGLOBULINS SPIE RENAL SONO 77 MIN PT EXAM, CHART REVIEW, > 50% OF TIME SPENT WITH EXAM, CHART REVIEW, PT CARE COORDINATION Justifications for Admission Abdominal Pain Indications Is patient in severe pain?: Yes Is NPO status required?: Yes Justification for admission: Patient may require to be NPO for greater 24hours making it medically necessary to manage patient as inpatient. Other Justification ANN MARIE CAMARA MD May 26, 2020 07:59
[2020-05-26] MEDS ORDERED: IPRATRPIUM/ALBUTEROL 0.5/2.5MG 3 ML NEBU. NEB SCH (08:00)
[2020-05-26] MEDS: INSULIN LISPRO 300 UNITS/3 ML VIAL. SQ SCH ×3 (08:00→16:34)
[2020-05-26] MEDS ORDERED: DOCUSATE SODIUM 100 MG CAPSULE. PO PRN (08:15)
[2020-05-26] MEDS ORDERED: SODIUM PHOSPHATES 19/7GM 133 ML ENEMA. PR PRN (08:15)
[2020-05-26] MEDS ORDERED: guaiFENesin ORAL 200 MG/10 ML LIQUID. PO PRN (08:15)
[2020-05-26] MEDS ORDERED: 0.9 % SODIUM CHLORIDE 10 ML DISP.SYRIN. IV PRN (08:15)
[2020-05-26] MEDS ORDERED: cloNIDine HCL 0.1 MG TABLET PO PRN (08:15)
[2020-05-26] MEDS ORDERED: ONDANSETRON PF 4 MG/2 ML VIAL. IV PRN (08:15)
[2020-05-26] MEDS: GABAPENTIN 300 MG CAPSULE. PO SCH ×3 (08:19→20:39)
[2020-05-26] MEDS: SUCRALFATE 1 GM TABLET. PO SCH ×3 (08:19→16:55)
[2020-05-26] MEDS: MAGNESIUM OXIDE 400 MG TABLET PO SCH ×2 (08:19→20:39)
[2020-05-26] MEDS ORDERED: HEPARIN for SUB-Q USE 5,000 UNIT/ML VIAL. SQ SCH (09:00)
[2020-05-26] MEDS ORDERED: POTASSIUM CHLORIDE 20 MEQ TABLET.ER. PO ONE (09:00)
[2020-05-26] MEDS ORDERED: POTASSIUM CHLORIDE 10 MEQ TABLET.ER. PO ONE (09:00)
[2020-05-26] MEDS: NICOTINE 14MG PATCH. TD SCH (09:39)
[2020-05-26] MEDS: PANTOPRAZOLE 40 MG TABLET.DR. PO SCH (09:39)
[2020-05-26] MEDS: ENOXAPARIN 30 MG/0.3 ML SYRINGE. SQ SCH (09:50)
--- NOTE | 2020-05-26 10:32 | NUR ---
SW following. Discussed with RN, pt from home with family, room air, clear liquid diet. PT/OT ordered. Nephrology consulted. Med Assist following for self pay status. SW will continue to follow.
[2020-05-26 11:00] VITALS: BP 106/62
[2020-05-26] MEDS: IPRATRPIUM/ALBUTEROL 0.5/2.5MG 3 ML NEBU. NEB SCH ×3 (11:14→20:38)
--- NOTE | 2020-05-26 11:32 | PDOC2 ---
GI CONSULT Date of Service: DATE: 05/26/20 TIME: 11:18 Reason For Consult: hematemesis HPI: HPI: 55 y/o female who we have seen many many times. Typically presents w/ elevated BP, diffuse abd pain, and vomiting. Symptoms usually resolved quickly w/ improved BP control. Has had several EGDs @ [facility] [place] - never w/ ulcer, initially +H. pylori and then negative (after treatment), gastritis and duodenitis noted (most recently 09/2018). Also two colonoscopies there - first w/ ischemic colitis, second normal. GES normal here in 03/2019 (T1/2 53 min). Normal GB on US in 05/2019. Refused HIDA 06/2019 ("can't lay flat"). Elevated Cortisol in 03/2019. No liver or pancreas history. 10 CTs here since 2015. In , abnormal urine collection w/ elevated VMA 24 hr and normetanephrine. Octreotide scan unrevealing in 06/2019. Normetanephrine less significantly elevated on repeat 24 hr urine in 06/2019. Says taking pantoprazole and GI cocktail. Lacks insight regarding her health, talks a lot about her "ulcer." Reports different symptoms this time. Reports urinary retention, then incontinence. BP normal. Associated w/ suprapubic pain. Also vomited. Urinating normally now, feeling better. Says she plans to see her PCP about a medication to help her gain weight. Says she doesn't eat at home - details unclear - just lacks appetite? Denies diarrhea, constipation, and bleeding. PMH: PMH: HTN, GERD, H. pylori (treated), ischemic colitis, depression, RA right ankle ORIF, exploatory abdominal surgery (@ [facility] [place]) FH: Family History: CAD, DM, Hypertension Social History: ALCOHOL: none Drugs: Marijuana (in the past, tox screen neg here for awhile) ROS: GEN: Denies fevers, chills, sweats HEENT: Denies blurred vision, sore throat CV: Denies chest pain RESP: Denies shortness of air, cough GI: Per HPI : Per HPI ENDO: +weight loss NEURO: Denies confusion, dizziness MSK: Denies weakness, joint pain/swelling SKIN: Denies jaundice, pruritus Vitals: Vitals: Vital Signs Date Time Temp Pulse Resp B/P (MAP) Pulse Ox O2 Delivery O2 Flow Rate FiO2 05/26/20 07:00 98.1 64 18 94/65 (75) 100 Room Air 98.1 Labs: Labs: Laboratory Tests Test 05/25/20 18:34 05/25/20 18:57 05/25/20 19:35 05/26/20 06:30 Urine Collection Type Unknown Urine Color Yellow Urine Clarity Clear Urine pH 6.0 (<5.0-8.0) Urine Specific [place] 1.020 (1.000-1.030) Urine Protein >=300 mg/dL (NEG-TRACE) Urine Glucose (UA) 100 mg/dL (NEG) Urine Ketones (Stick) Negative mg/dL (NEG) Urine Blood Trace (NEG) Urine Nitrite Negative (NEG) Urine Bilirubin Negative (NEG) Urine Urobilinogen Dipstick 0.2 mg/dL (0.2 mg/dL) Urine Leukocyte Esterase Negative (NEG) Urine RBC 1-2 /HPF (0-2) Urine WBC 1-4 /HPF (0-4) Urine Squamous Epithelial Cells Few /LPF Urine Amorphous Sediment Present /HPF Urine Bacteria Few /HPF (0-FEW) Urine Hyaline Casts Moderate /HPF Urine Mucus Mod /LPF Urine Opiates Screen Neg (NEG) Urine Methadone Screen Neg (NEG) Urine Barbiturates Neg (NEG) Urine Phencyclidine Screen Neg (NEG) Urine Amphetamine/Methamphetamine Neg (NEG) Urine Benzodiazepines Screen Neg (NEG) Urine Cocaine Screen Neg (NEG) Urine Cannabinoids Screen Neg (NEG) Urine Ethyl Alcohol Neg (NEG) Sodium Level 135 mmol/L (136-145) 133 mmol/L (136-145) Potassium Level 3.0 mmol/L (3.5-5.1) 3.2 mmol/L (3.5-5.1) Chloride Level 96 mmol/L (98-107) 96 mmol/L (98-107) Carbon Dioxide Level 30 mmol/L (21-32) 28 mmol/L (21-32) Anion Gap 9 (6-14) 9 (6-14) Blood Urea Nitrogen 21 mg/dL (7-20) 20 mg/dL (7-20) Creatinine 1.9 mg/dL (0.6-1.0) 1.7 mg/dL (0.6-1.0) Estimated GFR (Cockcroft-Gault) 33.1 37.6 BUN/Creatinine Ratio 11 (6-20) 12 (6-20) Glucose Level 125 mg/dL (70-99) 94 mg/dL (70-99) Calcium Level 10.4 mg/dL (8.5-10.1) 9.0 mg/dL (8.5-10.1) Magnesium Level 2.0 mg/dL (1.8-2.4) 1.8 mg/dL (1.8-2.4) Total Bilirubin 0.7 mg/dL (0.2-1.0) 0.3 mg/dL (0.2-1.0) Aspartate Amino Transf (AST/SGOT) 27 U/L (15-37) 27 U/L (15-37) Alanine Aminotransferase (ALT/SGPT) 18 U/L (14-59) 17 U/L (14-59) Alkaline Phosphatase 65 U/L (46-116) 46 U/L (46-116) Total Protein 8.1 g/dL (6.4-8.2) 6.8 g/dL (6.4-8.2) Albumin 4.0 g/dL (3.4-5.0) 3.1 g/dL (3.4-5.0) Albumin/Globulin Ratio 1.0 (1.0-1.7) 0.8 (1.0-1.7) Lipase 690 U/L (73-393) Ethyl Alcohol Level < 10 mg/dL (0-10) White Blood Count 12.5 x10^3/uL (4.0-11.0) 10.8 x10^3/uL (4.0-11.0) Red Blood Count 4.72 x10^6/uL (3.50-5.40) 4.31 x10^6/uL (3.50-5.40) Hemoglobin 12.8 g/dL (12.0-15.5) 11.7 g/dL (12.0-15.5) Hematocrit 39.2 % (36.0-47.0) 35.8 % (36.0-47.0) Mean Corpuscular Volume 83 fL (79-100) 83 fL (79-100) Mean Corpuscular Hemoglobin 27 pg (25-35) 27 pg (25-35) Mean Corpuscular Hemoglobin Concent 33 g/dL (31-37) 33 g/dL (31-37) Red Cell Distribution Width 20.3 % (11.5-14.5) 20.7 % (11.5-14.5) Platelet Count 205 x10^3/uL (140-400) 220 x10^3/uL (140-400) Neutrophils (%) (Auto) 71 % (31-73) 56 % (31-73) Lymphocytes (%) (Auto) 17 % (24-48) 32 % (24-48) Monocytes (%) (Auto) 11 % (0-9) 11 % (0-9) Eosinophils (%) (Auto) 0 % (0-3) 1 % (0-3) Basophils (%) (Auto) 0 % (0-3) 1 % (0-3) Neutrophils # (Auto) 8.9 x10^3/uL (1.8-7.7) 6.0 x10^3/uL (1.8-7.7) Lymphocytes # (Auto) 2.2 x10^3/uL (1.0-4.8) 3.5 x10^3/uL (1.0-4.8) Monocytes # (Auto) 1.4 x10^3/uL (0.0-1.1) 1.2 x10^3/uL (0.0-1.1) Eosinophils # (Auto) 0.0 x10^3/uL (0.0-0.7) 0.0 x10^3/uL (0.0-0.7) Basophils # (Auto) 0.1 x10^3/uL (0.0-0.2) 0.1 x10^3/uL (0.0-0.2) Platelet Estimate Adequate (ADEQUATE) Polychromasia Slight Poikilocytosis Slight Anisocytosis Mod Spherocytes Occ Helmet Cells Occ Schistocytes Occ Phosphorus Level 2.6 mg/dL (2.6-4.7) Allergies: Coded Allergies: Penicillins (Verified Allergy, Intermediate, HAS TOLERATED AMOXICILLIN, 06/04/19) Medications: Current Medications Medications (Trade) Dose Ordered Sig/Emile Route PRN Reason Start Time Stop Time Status Last Admin Dose Admin Morphine Sulfate (Morphine Sulfate) 5 mg 1X ONCE IV 05/25/20 21:00 05/25/20 21:01 DC 05/25/20 21:07 Famotidine (Pepcid Vial) 20 mg 1X ONCE IVP 05/25/20 21:00 05/25/20 21:01 DC 05/25/20 21:07 Morphine Sulfate (Morphine Sulfate) 4 mg PRN Q2HR PRN IV PAIN 05/25/20 21:15 05/26/20 21:14 05/26/20 02:42 Magnesium Oxide (Magnesium Oxide) 400 mg BID PO 05/26/20 09:00 05/27/20 21:01 05/26/20 08:19 Potassium Chloride/Water 100 ml @ 100 mls/hr Q1H IV 05/25/20 22:00 05/26/20 01:59 DC 05/26/20 01:43 Sodium Chloride 1,000 ml @ 100 mls/hr Q10H IV 05/25/20 21:22 05/25/20 22:26 Gabapentin (Neurontin) 300 mg TID PO 05/26/20 09:00 05/26/20 08:19 Oxycodone/ Acetaminophen (Percocet 10/325) 1 tab PRN QID PRN PO PAIN MOD TO SEV 05/25/20 23:30 05/25/20 23:42 Sucralfate (Carafate) 1 gm TIDAC PO 05/26/20 07:30 05/26/20 08:19 Potassium Chloride (Klor-Con) 30 meq 1X ONCE PO 05/26/20 09:00 05/26/20 09:08 DC 05/26/20 09:38 Sodium Chloride 1,000 ml @ 125 mls/hr Q8H IV 05/26/20 08:06 05/26/20 08:20 Albuterol/ Ipratropium (Duoneb) 3 ml Q4HRS NEB 05/26/20 12:00 05/26/20 11:14 Pantoprazole Sodium (Protonix) 40 mg DAILYAC PO 05/26/20 09:00 05/26/20 09:39 Nicotine (Nicoderm Cq 14mg) 1 patch DAILY TD 05/26/20 09:30 05/26/20 09:39 Imaging: Imaging: - PE: GEN: NAD HEENT: Atraumatic, PERRL LUNGS: CTAB HEART: RRR ABD: NABS, S/ND/NT EXTREMITY: No edema SKIN: No rashes, no jaundice NEURO/PSYCH: A & O 3 A/P: A/P: Urinary retention/incontinence, suprapubic discomfort Recurrent vomiting, weight loss MARAH, mildly elevated lipase H/o H. pylori - treated CRC screen - UTD H/o ischemic colitis Concern for pheo in the past -- Urology opinion would be useful - unavailable here. Nephrology to see. Unclear significance of mildly elevated lipase - no upper abdominal pain, lots of imaging in the past w/o pancreas abnormalities. Continue PPI, ADAT. ANDRES HOFFMAN May 26, 2020 11:32
[2020-05-26] MEDS: oxyCODONE/APAP 10/325 1 TAB TABLET PO PRN ×2 (12:30→20:40)
[2020-05-26] MEDS: amLODIPine BESYLATE 10 MG TABLET PO SCH (12:30)
[2020-05-26] MEDS ORDERED: POTASSIUM CHLORIDE 10MEQ 100 ML IV PRN ×2 (13:15)
[2020-05-26] MEDS ORDERED: POTASSIUM BICARB 20 MEQ EFFERVESCENT TABLET. PO PRN (13:15)
[2020-05-26] MEDS ORDERED: POTASSIUM BICARB 20 MEQ EFFERVESCENT TABLET. FT PRN (13:15)
[2020-05-26] MEDS ORDERED: MAGNESIUM SULFATE 2GM 50 ML IV PRN (13:15)
[2020-05-26] MEDS: CHOLECALCIFEROL (VITAMIN D3) 5,000 UNIT CAPSULE PO SCH (13:19)
--- NOTE | 2020-05-26 14:06 | RAD ---
Examination: Ultrasound kidneys History: history of acute renal failure COMPARISON: None available. Findings: The right kidney measures 10.7 x 5.5 x 3.7 cm. The left kidney 11.3 x 5.7 x 4.8 cm. No evidence of hydronephrosis. Urinary bladder is empty. IMPRESSION: Unremarkable exam. Electronically signed by: Cornelio Salas MD (05/26/2020 2:03 PM) [id number]
[2020-05-26 15:00] VITALS: BP 112/68
--- NOTE | 2020-05-26 15:40 | NUR ---
Bladder scanned patient post voiding, patient only had about 45 mls in bladder.
--- NOTE | 2020-05-26 15:47 | PDOC2 ---
CONSULT Date of Consult Date of Consult DATE: 05/26/20 TIME: 15:41 Reason for Consult Reason for Consult: MARAH Referring Physician Referring Physician: JAX Identification/Chief Complaint Chief Complaint ABD PAIN Source Source: Chart review, Patient History of Present Illness Reason for Visit: THIS IS A 55 YR OLD WITH ABD PAIN AND HIGH BP HX. HAS HX OF GASTRITIS AND SEEING GI FOR THIS. NO CKD HX BUT CR OF 1.9. STATES THAT SHE HAS NOT BEEN EATING MUCH. STATES IT HURTS TO EAT SOMETIMES. HAS PROBLEMS EMPTYING HER BLADDER. HAS HAD THIS IN THE PAST. NO NEPHROTOXINS AND HEMODYNAMICALLY SHE IS STABLE. NO OTHER HX GIVEN Past Medical History Cardiovascular: HTN, Hyperlipidemia Pulmonary: No pertinent hx GI: GERD, Other Hepatobiliary: No pertinent hx Psych: Anxiety, Depression Rheumatologic: Rheumatoid arthritis Infectious disease: No pertinent hx Renal/: No pertinent hx Endocrine: No pertinent hx Past Surgical History Past Surgical History: Other Family History Family History: Diabetes, Heart Disease, High Cholestrol Social History No ALCOHOL: none Drugs: Marijuana (in the past, tox screen neg here for awhile) Lives: with Family Current Problem List Problem List Problems Medical Problems: (1) Acute renal failure Status: Acute (2) Hypokalemia Status: Acute (3) Pancreatitis Status: Acute Current Medications Current Medications Current Medications Morphine Sulfate (Morphine Sulfate) 5 mg 1X ONCE IV Last administered on 05/25/20at 21:07; Start 05/25/20 at 21:00; Stop 05/25/20 at 21:01; Status DC Famotidine (Pepcid Vial) 20 mg 1X ONCE IVP Last administered on 05/25/20at 21:07; Start 05/25/20 at 21:00; Stop 05/25/20 at 21:01; Status DC Ondansetron HCl (Zofran) 4 mg PRN Q8HRS PRN IV NAUSEA/VOMITING; Start 05/25/20 a t 21:15; Stop 05/26/20 at 08:15; Status DC Morphine Sulfate (Morphine Sulfate) 4 mg PRN Q2HR PRN IV PAIN Last administered on 05/26/20at 02:42; Start 05/25/20 at 21:15; Stop 05/26/20 at 21:14 Sodium Chloride 1,000 ml @ 75 mls/hr 1X ONCE IV ; Start 05/25/20 at 21:15; Stop 05/26/20 at 10:34; Status DC Heparin Sodium (Porcine) (Heparin Sodium) 5,000 unit Q12HR SQ ; Start 05/26/20 at 09:00; Status Cancel Sennosides (Senna) 17.2 mg PRN BID PRN PO CONSTIPATION; Start 05/25/20 at 21:30 Docusate Sodium (Colace) 100 mg PRN DAILY PRN PO HARD STOOLS; Start 05/25/20 at 21:30; Stop 05/25/20 at 23:46; Status DC Ondansetron HCl (Zofran) 4 mg PRN Q6HRS PRN IVP NAUSEA/VOMITING; Start 05/25/20 at 21:30; Stop 05/26/20 at 08:15; Status DC Albuterol/ Ipratropium (Duoneb) 3 ml RTQID NEB ; Start 05/26/20 at 08:00; Stop 05/26/20 at 08:16; Status DC Potassium Chloride (Klor-Con) 40 meq 1X PRN PO PER PROTOCOL; Start 05/25/20 at 21:30; Stop 05/26/20 at 08:18; Status DC Magnesium Oxide (Magnesium Oxide) 400 mg BID PO Last administered on 05/26/20at 08:19; Start 05/26/20 at 09:00; Stop 05/27/20 at 21:01 Potassium Chloride/Water 100 ml @ 100 mls/hr Q1H IV Last administered on 05/26/20at 01:43; Start 05/25/20 at 22:00; Stop 05/26/20 at 01:59; Status DC Magnesium Sulfate 50 ml @ 25 mls/hr Q24H IV ; Start 05/25/20 at 22:00; Stop 05/27/20 at 23:59 Potassium Chloride/Water 100 ml @ 100 mls/hr PRN Q1HR PRN IV low k; Start 05/25/20 at 21:30 Insulin Human Lispro (HumaLOG) 0-5 UNITS TIDWMEALS SQ ; Start 05/26/20 at 08:00 Dextrose (Dextrose 50%-Water Syringe) 12.5 gm PRN Q15MIN PRN IV SEE COMMENTS; Start 05/25/20 at 21:30 Sodium Chloride 1,000 ml @ 100 mls/hr Q10H IV Last administered on 05/25/20at 22:26; Start 05/25/20 at 21:22 Pantoprazole Sodium (PROTONIX VIAL for IV PUSH) 40 mg DAILYAC IVP ; Start 05/26/20 at 07:30; Status Cancel Acetaminophen (Tylenol) 650 mg PRN Q4HRS PRN PO TEMP OVER 100.4F OR MILD PAIN; Start 05/25/20 at 23:30 Docusate Sodium (Colace) 100 mg PRN BID PRN PO HARD STOOLS; Start 05/25/20 at 23:30; Stop 05/26/20 at 08:16; Status DC Gabapentin (Neurontin) 300 mg TID PO Last administered on 05/26/20at 15:28; Start 05/26/20 at 09:00 Al Hydroxide/Mg Hydroxide (Mylanta Plus Xs) 30 ml PRN DAILY PRN PO HEARTBURN / GAS; Start 05/25/20 at 23:30 Ondansetron HCl (Zofran Odt) 4 mg PRN Q6HRS PRN PO NAUSEA; Start 05/25/20 at 23:30 Oxycodone/ Acetaminophen (Percocet 10/325) 1 tab PRN QID PRN PO PAIN MOD TO SEV Last administered on 05/26/20at 12:30; Start 05/25/20 at 23:30 Sucralfate (Carafate) 1 gm TIDAC PO Last administered on 05/26/20at 12:32; Start 05/26/20 at 07:30 Morphine Sulfate (Morphine Sulfate) 2 mg PRN Q2HR PRN IV PAIN; Start 05/25/20 at 23:45 Polyethylene Glycol (miraLAX PACKET) 17 gm PRN DAILY PRN PO CONSTIPATION- 2ND CHOICE; Start 05/25/20 at 23:45 Potassium Chloride (Klor-Con) 20 meq 1X ONCE PO ; Start 05/26/20 at 09:00; Stop 05/26/20 at 09:01; Status UNV Potassium Chloride (Klor-Con) 30 meq 1X ONCE PO Last administered on 05/26/20at 09:38; Start 05/26/20 at 09:00; Stop 05/26/20 at 09:08; Status DC Sodium Chloride (Normal Saline Flush) 3 ml QSHIFT PRN IV AFTER MEDS AND BLOOD DRAWS; Start 05/26/20 at 08:15 Sodium Chloride 1,000 ml @ 125 mls/hr Q8H IV Last administered on 05/26/20at 08:20; Start 05/26/20 at 08:06 Ondansetron HCl (Zofran) 4 mg PRN Q4HRS PRN IV NAUSEA/VOMITING; Start 05/26/20 at 08:15 Clonidine HCl (Catapres) 0.1 mg PRN Q6HRS PRN PO SBP>160 OR DBP>90; Start 05/26/20 at 08:15 Sodium Monofluorophosphate (Fleet Adult) 133 ml PRN DAILY PRN LA CONSTIPATION; Start 05/26/20 at 08:15 Docusate Sodium (Colace) 100 mg PRN BID PRN PO HARD STOOLS; Start 05/26/20 at 08:15 Albuterol/ Ipratropium (Duoneb) 3 ml Q4HRS NEB Last administered on 05/26/20at 15:31; Start 05/26/20 at 12:00 Guaifenesin (Robitussin) 200 mg PRN Q4HRS PRN PO COUGH; Start 05/26/20 at 08:15 Enoxaparin Sodium (Lovenox 30mg Syringe) 30 mg Q24H SQ ; Start 05/26/20 at 09:00 Amlodipine Besylate (Norvasc) 10 mg DAILY PO Last administered on 05/26/20at 12:30; Start 05/26/20 at 09:00 Vitamin D (Vitamin D3) 5,000 unit DAILY PO Last administered on 05/26/20at 13:19; Start 05/26/20 at 09:00 Pantoprazole Sodium (Protonix) 40 mg DAILYAC PO Last administered on 05/26/20at 09:39; Start 05/26/20 at 09:00 Nicotine (Nicoderm Cq 14mg) 1 patch DAILY TD Last administered on 05/26/20at 09:39; Start 05/26/20 at 09:30 Potassium Bicarbonate (Potassium Effervescent Tablet) 40 meq 1X PRN PRN FT SEE ORDER COMMENTS; Start 05/26/20 at 13:15 Potassium Chloride/Water 100 ml @ 100 mls/hr PRN Q1HR PRN IV SEE ORDER COMMENTS; Start 05/26/20 at 13:15 Magnesium Sulfate 50 ml @ 25 mls/hr PRN Q24HRS PRN IV SEE ORDER COMMENTS; Start 05/26/20 at 13:15 Potassium Phos/ Sodium Phos (Phos-Nak) 1 pkt PRN BID PRN PO SEE ORDER COMMENTS; Start 05/26/20 at 21:00 Potassium Bicarbonate (Potassium Effervescent Tablet) 40 meq PRN Q4HRS PRN PO SEE ORDER COMMENTS; Start 05/26/20 at 13:15 Potassium Chloride/Water 100 ml @ 100 mls/hr PRN Q1HR PRN IV SEE ORDER COMMENTS; Start 05/26/20 at 13:15 Active Scripts Active Dok (Docusate Sodium) 100 Mg Capsule 100 Mg PO PRN BID PRN 30 Days Mag-Al Plus Xs Suspension (Mag Hydrox/Al Hydrox/Simeth) 30 Ml Oral.susp 30 Ml PO PRN DAILY PRN 10 Days Tylenol (Acetaminophen) 325 Mg Tablet 650 Mg PO PRN Q4HRS PRN 30 Days Ondansetron Odt (Ondansetron) 4 Mg Tab.rapdis 1 Tab PO PRN Q6-8HRS PRN Vitamin D3 (Cholecalciferol (Vitamin D3)) 5,000 Unit Capsule 5,000 Unit PO DAILY 30 Days Pantoprazole Sodium (Pantoprazole Sodium) 40 Mg Tablet.dr 40 Mg PO DAILYAC Reported [GI coctail] 30 Ml PO PRN TID PRN Oxycodone-Acetaminophen 10-325 (Oxycodone Hcl/Acetaminophen) 1 Each Tablet 1 Tab PO PRN QID PRN Sucralfate 1 Gm Tablet 1 Tab PO TID Amlodipine Besylate 10 Mg Tablet 1 Tab PO DAILY 90 Days Gabapentin 300 Mg Capsule 300 Mg PO TID Allergies Allergies: Coded Allergies: Penicillins (Verified Allergy, Intermediate, HAS TOLERATED AMOXICILLIN, 06/04/19) ROS General: YES: Fatigue, Appetite PSYCHOLOGICAL ROS: YES: Anxiety Eyes: Yes Decreased vision HEENT: YES: Heacaches ALLERGY AND IMMUNOLOGY: YES: Hives Respiratory: YES: Cough Genitourinary: YES Frequency, YES Retention Musculoskeletal: Yes Muscular Weakness Neurological: Yes Weakness Skin: Yes Dry Skin Physical Exam General: Alert, Oriented X3, No acute distress HEENT: Atraumatic Lungs: Clear to auscultation Heart: Regular rate, Normal S1, Normal S2 Abdomen: Normal bowel sounds, No tenderness Extremities: No clubbing, No cyanosis Neuro: Normal speech, Sensation intact Psych/Mental Status: Mental status NL, Mood NL MUSCULOSKELETAL: No joint tenderness, No deformity, No swelling Vitals VITALS Vital Signs Date Time Temp Pulse Resp B/P (MAP) Pulse Ox O2 Delivery O2 Flow Rate FiO2 05/26/20 15:32 Room Air 05/26/20 12:30 63 106/62 05/26/20 11:00 100 05/26/20 11:00 97.8 18 97.8 Labs Labs Laboratory Tests Test 05/25/20 18:34 05/25/20 18:57 05/25/20 19:35 05/26/20 06:30 Urine Collection Type Unknown Urine Color Yellow Urine Clarity Clear Urine pH 6.0 (<5.0-8.0) Urine Specific [place] 1.020 (1.000-1.030) Urine Protein >=300 mg/dL (NEG-TRACE) Urine Glucose (UA) 100 mg/dL (NEG) Urine Ketones (Stick) Negative mg/dL (NEG) Urine Blood Trace (NEG) Urine Nitrite Negative (NEG) Urine Bilirubin Negative (NEG) Urine Urobilinogen Dipstick 0.2 mg/dL (0.2 mg/dL) Urine Leukocyte Esterase Negative (NEG) Urine RBC 1-2 /HPF (0-2) Urine WBC 1-4 /HPF (0-4) Urine Squamous Epithelial Cells Few /LPF Urine Amorphous Sediment Present /HPF Urine Bacteria Few /HPF (0-FEW) Urine Hyaline Casts Moderate /HPF Urine Mucus Mod /LPF Urine Opiates Screen Neg (NEG) Urine Methadone Screen Neg (NEG) Urine Barbiturates Neg (NEG) Urine Phencyclidine Screen Neg (NEG) Urine Amphetamine/Methamphetamine Neg (NEG) Urine Benzodiazepines Screen Neg (NEG) Urine Cocaine Screen Neg (NEG) Urine Cannabinoids Screen Neg (NEG) Urine Ethyl Alcohol Neg (NEG) Sodium Level 135 mmol/L (136-145) 133 mmol/L (136-145) Potassium Level 3.0 mmol/L (3.5-5.1) 3.2 mmol/L (3.5-5.1) Chloride Level 96 mmol/L (98-107) 96 mmol/L (98-107) Carbon Dioxide Level 30 mmol/L (21-32) 28 mmol/L (21-32) Anion Gap 9 (6-14) 9 (6-14) Blood Urea Nitrogen 21 mg/dL (7-20) 20 mg/dL (7-20) Creatinine 1.9 mg/dL (0.6-1.0) 1.7 mg/dL (0.6-1.0) Estimated GFR (Cockcroft-Gault) 33.1 37.6 BUN/Creatinine Ratio 11 (6-20) 12 (6-20) Glucose Level 125 mg/dL (70-99) 94 mg/dL (70-99) Calcium Level 10.4 mg/dL (8.5-10.1) 9.0 mg/dL (8.5-10.1) Magnesium Level 2.0 mg/dL (1.8-2.4) 1.8 mg/dL (1.8-2.4) Total Bilirubin 0.7 mg/dL (0.2-1.0) 0.3 mg/dL (0.2-1.0) Aspartate Amino Transf (AST/SGOT) 27 U/L (15-37) 27 U/L (15-37) Alanine Aminotransferase (ALT/SGPT) 18 U/L (14-59) 17 U/L (14-59) Alkaline Phosphatase 65 U/L (46-116) 46 U/L (46-116) Total Protein 8.1 g/dL (6.4-8.2) 6.8 g/dL (6.4-8.2) Albumin 4.0 g/dL (3.4-5.0) 3.1 g/dL (3.4-5.0) Albumin/Globulin Ratio 1.0 (1.0-1.7) 0.8 (1.0-1.7) Lipase 690 U/L (73-393) Ethyl Alcohol Level < 10 mg/dL (0-10) White Blood Count 12.5 x10^3/uL (4.0-11.0) 10.8 x10^3/uL (4.0-11.0) Red Blood Count 4.72 x10^6/uL (3.50-5.40) 4.31 x10^6/uL (3.50-5.40) Hemoglobin 12.8 g/dL (12.0-15.5) 11.7 g/dL (12.0-15.5) Hematocrit 39.2 % (36.0-47.0) 35.8 % (36.0-47.0) Mean Corpuscular Volume 83 fL (79-100) 83 fL (79-100) Mean Corpuscular Hemoglobin 27 pg (25-35) 27 pg (25-35) Mean Corpuscular Hemoglobin Concent 33 g/dL (31-37) 33 g/dL (31-37) Red Cell Distribution Width 20.3 % (11.5-14.5) 20.7 % (11.5-14.5) Platelet Count 205 x10^3/uL (140-400) 220 x10^3/uL (140-400) Neutrophils (%) (Auto) 71 % (31-73) 56 % (31-73) Lymphocytes (%) (Auto) 17 % (24-48) 32 % (24-48) Monocytes (%) (Auto) 11 % (0-9) 11 % (0-9) Eosinophils (%) (Auto) 0 % (0-3) 1 % (0-3) Basophils (%) (Auto) 0 % (0-3) 1 % (0-3) Neutrophils # (Auto) 8.9 x10^3/uL (1.8-7.7) 6.0 x10^3/uL (1.8-7.7) Lymphocytes # (Auto) 2.2 x10^3/uL (1.0-4.8) 3.5 x10^3/uL (1.0-4.8) Monocytes # (Auto) 1.4 x10^3/uL (0.0-1.1) 1.2 x10^3/uL (0.0-1.1) Eosinophils # (Auto) 0.0 x10^3/uL (0.0-0.7) 0.0 x10^3/uL (0.0-0.7) Basophils # (Auto) 0.1 x10^3/uL (0.0-0.2) 0.1 x10^3/uL (0.0-0.2) Platelet Estimate Adequate (ADEQUATE) Polychromasia Slight Poikilocytosis Slight Anisocytosis Mod Spherocytes Occ Helmet Cells Occ Schistocytes Occ Phosphorus Level 2.6 mg/dL (2.6-4.7) Laboratory Tests Test 05/25/20 18:34 05/25/20 18:57 05/25/20 19:35 05/26/20 06:30 Urine Collection Type Unknown Urine Color Yellow Urine Clarity Clear Urine pH 6.0 (<5.0-8.0) Urine Specific [place] 1.020 (1.000-1.030) Urine Protein >=300 mg/dL (NEG-TRACE) Urine Glucose (UA) 100 mg/dL (NEG) Urine Ketones (Stick) Negative mg/dL (NEG) Urine Blood Trace (NEG) Urine Nitrite Negative (NEG) Urine Bilirubin Negative (NEG) Urine Urobilinogen Dipstick 0.2 mg/dL (0.2 mg/dL) Urine Leukocyte Esterase Negative (NEG) Urine RBC 1-2 /HPF (0-2) Urine WBC 1-4 /HPF (0-4) Urine Squamous Epithelial Cells Few /LPF Urine Amorphous Sediment Present /HPF Urine Bacteria Few /HPF (0-FEW) Urine Hyaline Casts Moderate /HPF Urine Mucus Mod /LPF Urine Opiates Screen Neg (NEG) Urine Methadone Screen Neg (NEG) Urine Barbiturates Neg (NEG) Urine Phencyclidine Screen Neg (NEG) Urine Amphetamine/Methamphetamine Neg (NEG) Urine Benzodiazepines Screen Neg (NEG) Urine Cocaine Screen Neg (NEG) Urine Cannabinoids Screen Neg (NEG) Urine Ethyl Alcohol Neg (NEG) Sodium Level 135 mmol/L (136-145) 133 mmol/L (136-145) Potassium Level 3.0 mmol/L (3.5-5.1) 3.2 mmol/L (3.5-5.1) Chloride Level 96 mmol/L (98-107) 96 mmol/L (98-107) Carbon Dioxide Level 30 mmol/L (21-32) 28 mmol/L (21-32) Anion Gap 9 (6-14) 9 (6-14) Blood Urea Nitrogen 21 mg/dL (7-20) 20 mg/dL (7-20) Creatinine 1.9 mg/dL (0.6-1.0) 1.7 mg/dL (0.6-1.0) Estimated GFR (Cockcroft-Gault) 33.1 37.6 BUN/Creatinine Ratio 11 (6-20) 12 (6-20) Glucose Level 125 mg/dL (70-99) 94 mg/dL (70-99) Calcium Level 10.4 mg/dL (8.5-10.1) 9.0 mg/dL (8.5-10.1) Magnesium Level 2.0 mg/dL (1.8-2.4) 1.8 mg/dL (1.8-2.4) Total Bilirubin 0.7 mg/dL (0.2-1.0) 0.3 mg/dL (0.2-1.0) Aspartate Amino Transf (AST/SGOT) 27 U/L (15-37) 27 U/L (15-37) Alanine Aminotransferase (ALT/SGPT) 18 U/L (14-59) 17 U/L (14-59) Alkaline Phosphatase 65 U/L (46-116) 46 U/L (46-116) Total Protein 8.1 g/dL (6.4-8.2) 6.8 g/dL (6.4-8.2) Albumin 4.0 g/dL (3.4-5.0) 3.1 g/dL (3.4-5.0) Albumin/Globulin Ratio 1.0 (1.0-1.7) 0.8 (1.0-1.7) Lipase 690 U/L (73-393) Ethyl Alcohol Level < 10 mg/dL (0-10) White Blood Count 12.5 x10^3/uL (4.0-11.0) 10.8 x10^3/uL (4.0-11.0) Red Blood Count 4.72 x10^6/uL (3.50-5.40) 4.31 x10^6/uL (3.50-5.40) Hemoglobin 12.8 g/dL (12.0-15.5) 11.7 g/dL (12.0-15.5) Hematocrit 39.2 % (36.0-47.0) 35.8 % (36.0-47.0) Mean Corpuscular Volume 83 fL (79-100) 83 fL (79-100) Mean Corpuscular Hemoglobin 27 pg (25-35) 27 pg (25-35) Mean Corpuscular Hemoglobin Concent 33 g/dL (31-37) 33 g/dL (31-37) Red Cell Distribution Width 20.3 % (11.5-14.5) 20.7 % (11.5-14.5) Platelet Count 205 x10^3/uL (140-400) 220 x10^3/uL (140-400) Neutrophils (%) (Auto) 71 % (31-73) 56 % (31-73) Lymphocytes (%) (Auto) 17 % (24-48) 32 % (24-48) Monocytes (%) (Auto) 11 % (0-9) 11 % (0-9) Eosinophils (%) (Auto) 0 % (0-3) 1 % (0-3) Basophils (%) (Auto) 0 % (0-3) 1 % (0-3) Neutrophils # (Auto) 8.9 x10^3/uL (1.8-7.7) 6.0 x10^3/uL (1.8-7.7) Lymphocytes # (Auto) 2.2 x10^3/uL (1.0-4.8) 3.5 x10^3/uL (1.0-4.8) Monocytes # (Auto) 1.4 x10^3/uL (0.0-1.1) 1.2 x10^3/uL (0.0-1.1) Eosinophils # (Auto) 0.0 x10^3/uL (0.0-0.7) 0.0 x10^3/uL (0.0-0.7) Basophils # (Auto) 0.1 x10^3/uL (0.0-0.2) 0.1 x10^3/uL (0.0-0.2) Platelet Estimate Adequate (ADEQUATE) Polychromasia Slight Poikilocytosis Slight Anisocytosis Mod Spherocytes Occ Helmet Cells Occ Schistocytes Occ Phosphorus Level 2.6 mg/dL (2.6-4.7) Assessment/Plan Assessment/Plan IMP MARAH-PROB EXTRACELLULAR VOLUME DEPLETION URINARY RETENTIOIN ABD PAIN PLAN HYDRATION RENAL SONOGRAM BLADDER SCAN GI EVAL BANDAR DAVIS MD May 26, 2020 15:47
[2020-05-26] MEDS: MAGNESIUM SULFATE 2GM 50 ML IV SCH (18:05)
[2020-05-26 19:00] VITALS: BP 95/66
[2020-05-26] MEDS: POLYETHYLENE GLYCOL 3350 17 GM PACKET. PO PRN (20:38)
[2020-05-26] MEDS ORDERED: POTASSIUM & SODIUM PHOSPHATES PACKET. PO PRN (21:00)
[2020-05-26 23:00] VITALS: BP 90/57
[2020-05-27] MEDS: IV NORMAL SALINE 1000ML BAG 1,000 ML IV SCH ×3 (00:06→17:19)
[2020-05-27 01:08] LABS: HEMOGLOBIN A1C 5.4 % (4.8-5.6)
[2020-05-27] MEDS: oxyCODONE/APAP 10/325 1 TAB TABLET PO PRN ×4 (01:47→20:37)
[2020-05-27 02:51] VITALS: BP 96/68
[2020-05-27 06:06] LABS: CALCIUM 8.7 mg/dL (8.5-10.1); CREATININE 1.4 mg/dL (0.6-1.0); GFR 47.1; MAGNESIUM 1.8 mg/dL (1.8-2.4)
[2020-05-27 07:15] VITALS: BP 118/65
[2020-05-27] MEDS: PANTOPRAZOLE 40 MG TABLET.DR. PO SCH (07:54)
[2020-05-27] MEDS: MAGNESIUM OXIDE 400 MG TABLET PO SCH ×2 (07:54→20:36)
[2020-05-27] MEDS: GABAPENTIN 300 MG CAPSULE. PO SCH ×3 (07:54→20:36)
[2020-05-27] MEDS: SUCRALFATE 1 GM TABLET. PO SCH ×3 (07:54→17:17)
[2020-05-27] MEDS: ENOXAPARIN 30 MG/0.3 ML SYRINGE. SQ SCH (07:56)
[2020-05-27] MEDS: amLODIPine BESYLATE 10 MG TABLET PO SCH (07:56)
[2020-05-27] MEDS: INSULIN LISPRO 300 UNITS/3 ML VIAL. SQ SCH ×3 (07:56→17:00)
[2020-05-27] MEDS: NICOTINE 14MG PATCH. TD SCH (07:57)
[2020-05-27] MEDS: IPRATRPIUM/ALBUTEROL 0.5/2.5MG 3 ML NEBU. NEB SCH ×4 (08:07→20:32)
--- NOTE | 2020-05-27 08:48 | PDOC ---
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 37 MIN PT EXAM, CHART REVIEW, > 50% OF TIME SPENT WITH EXAM, CHART REVIEW, PT CARE COORDINATION History of Present Illness History of Present Illness Identification/Chief Complaint Chief Complaint SEEN IN ER WITH atn , hypokalemia 55 year old female with history of diabetes type 2, hypertension, peptic ulcer disease, who presents to the ED today stating one of her family members is a "doctor" who told that she is having kidney failure. Patient states she has had trouble with voiding. Patient states for the last couple days she has had episode where it is painful to void and occasionally she voids on herself. Patient denies any injuries to her lumbar spine. Denies any abdominal pain, nausea or vomiting. Denies any fever. Past Medical History Past Medical History Past Medical History Past Medical History Past Medical History: Diabetes-Type II, Hypertension, P.U.D., Other Additional Past Medical Histor: stomach ulcers,CYCLIC VOMITING,SEPSIS NARCOTIC DEPENDENCE GASTRITIS Past Surgical History: Other Additional Past Surgical Histo: foot surgery, explor. abd sx Smoking Status: Current Every Day Smoker Additional Information: 0.25 PPD Alcohol Use: None Drug Use: None fhx COPD Cardiovascular: HTN, Hyperlipidemia Pulmonary: No pertinent hx GI: GERD, Other Hepatobiliary: No pertinent hx Psych: Anxiety, Depression Rheumatologic: Rheumatoid arthritis Infectious disease: No pertinent hx Renal/: No pertinent hx Endocrine: No pertinent hx Vitals Vitals Vital Signs Date Time Temp Pulse Resp B/P (MAP) Pulse Ox O2 Delivery O2 Flow Rate FiO2 05/27/20 08:09 98 Room Air 05/27/20 07:56 81 118/65 05/27/20 07:15 98.1 20 98.1 Physical Exam General: Alert, Oriented X3, No acute distress Heart: Regular rate, Normal S1, Normal S2 Lungs: Clear Abdomen: Normal bowel sounds, No tenderness Extremities: No clubbing, No cyanosis Labs LABS Examination: Ultrasound kidneys History: history of acute renal failure COMPARISON: None available. Findings: The right kidney measures 10.7 x 5.5 x 3.7 cm. The left kidney 11.3 x 5.7 x 4.8 cm. No evidence of hydronephrosis. Urinary bladder is empty. IMPRESSION: Unremarkable exam. Electronically signed by: Cornelio Salas MD (05/26/2020 2:03 PM) [id number] DICTATED and SIGNED BY: CORNELIO SALAS MD DATE: 05/26/20 140 Laboratory Tests Test 05/26/20 19:15 05/27/20 05:05 Potassium Level 3.5 mmol/L (3.5-5.1) 4.0 mmol/L (3.5-5.1) Sodium Level 137 mmol/L (136-145) Chloride Level 103 mmol/L (98-107) Carbon Dioxide Level 25 mmol/L (21-32) Anion Gap 9 (6-14) Blood Urea Nitrogen 20 mg/dL (7-20) Creatinine 1.4 mg/dL (0.6-1.0) Estimated GFR (Cockcroft-Gault) 47.1 Glucose Level 93 mg/dL (70-99) Calcium Level 8.7 mg/dL (8.5-10.1) Phosphorus Level 2.3 mg/dL (2.6-4.7) Magnesium Level 1.8 mg/dL (1.8-2.4) Assessment and Plan Assessmemt and Plan Problems Medical Problems: (1) Acute renal failure Status: Acute (2) Hypokalemia Status: Acute (3) Pancreatitis Status: Acute Comment Review of Relevant I have reviewed the following items starr (where applicable) has been applied. Labs Laboratory Tests Test 05/25/20 18:34 05/25/20 18:57 05/25/20 19:35 05/26/20 06:30 Urine Collection Type Unknown Urine Color Yellow Urine Clarity Clear Urine pH 6.0 (<5.0-8.0) Urine Specific [place] 1.020 (1.000-1.030) Urine Protein >=300 mg/dL (NEG-TRACE) Urine Glucose (UA) 100 mg/dL (NEG) Urine Ketones (Stick) Negative mg/dL (NEG) Urine Blood Trace (NEG) Urine Nitrite Negative (NEG) Urine Bilirubin Negative (NEG) Urine Urobilinogen Dipstick 0.2 mg/dL (0.2 mg/dL) Urine Leukocyte Esterase Negative (NEG) Urine RBC 1-2 /HPF (0-2) Urine WBC 1-4 /HPF (0-4) Urine Squamous Epithelial Cells Few /LPF Urine Amorphous Sediment Present /HPF Urine Bacteria Few /HPF (0-FEW) Urine Hyaline Casts Moderate /HPF Urine Mucus Mod /LPF Urine Opiates Screen Neg (NEG) Urine Methadone Screen Neg (NEG) Urine Barbiturates Neg (NEG) Urine Phencyclidine Screen Neg (NEG) Urine Amphetamine/Methamphetamine Neg (NEG) Urine Benzodiazepines Screen Neg (NEG) Urine Cocaine Screen Neg (NEG) Urine Cannabinoids Screen Neg (NEG) Urine Ethyl Alcohol Neg (NEG) Sodium Level 135 mmol/L (136-145) 133 mmol/L (136-145) Potassium Level 3.0 mmol/L (3.5-5.1) 3.2 mmol/L (3.5-5.1) Chloride Level 96 mmol/L (98-107) 96 mmol/L (98-107) Carbon Dioxide Level 30 mmol/L (21-32) 28 mmol/L (21-32) Anion Gap 9 (6-14) 9 (6-14) Blood Urea Nitrogen 21 mg/dL (7-20) 20 mg/dL (7-20) Creatinine 1.9 mg/dL (0.6-1.0) 1.7 mg/dL (0.6-1.0) Estimated GFR (Cockcroft-Gault) 33.1 37.6 BUN/Creatinine Ratio 11 (6-20) 12 (6-20) Glucose Level 125 mg/dL (70-99) 94 mg/dL (70-99) Calcium Level 10.4 mg/dL (8.5-10.1) 9.0 mg/dL (8.5-10.1) Magnesium Level 2.0 mg/dL (1.8-2.4) 1.8 mg/dL (1.8-2.4) Total Bilirubin 0.7 mg/dL (0.2-1.0) 0.3 mg/dL (0.2-1.0) Aspartate Amino Transf (AST/SGOT) 27 U/L (15-37) 27 U/L (15-37) Alanine Aminotransferase (ALT/SGPT) 18 U/L (14-59) 17 U/L (14-59) Alkaline Phosphatase 65 U/L (46-116) 46 U/L (46-116) Total Protein 8.1 g/dL (6.4-8.2) 6.8 g/dL (6.4-8.2) Albumin 4.0 g/dL (3.4-5.0) 3.1 g/dL (3.4-5.0) Albumin/Globulin Ratio 1.0 (1.0-1.7) 0.8 (1.0-1.7) Lipase 690 U/L (73-393) Ethyl Alcohol Level < 10 mg/dL (0-10) White Blood Count 12.5 x10^3/uL (4.0-11.0) 10.8 x10^3/uL (4.0-11.0) Red Blood Count 4.72 x10^6/uL (3.50-5.40) 4.31 x10^6/uL (3.50-5.40) Hemoglobin 12.8 g/dL (12.0-15.5) 11.7 g/dL (12.0-15.5) Hematocrit 39.2 % (36.0-47.0) 35.8 % (36.0-47.0) Mean Corpuscular Volume 83 fL (79-100) 83 fL (79-100) Mean Corpuscular Hemoglobin 27 pg (25-35) 27 pg (25-35) Mean Corpuscular Hemoglobin Concent 33 g/dL (31-37) 33 g/dL (31-37) Red Cell Distribution Width 20.3 % (11.5-14.5) 20.7 % (11.5-14.5) Platelet Count 205 x10^3/uL (140-400) 220 x10^3/uL (140-400) Neutrophils (%) (Auto) 71 % (31-73) 56 % (31-73) Lymphocytes (%) (Auto) 17 % (24-48) 32 % (24-48) Monocytes (%) (Auto) 11 % (0-9) 11 % (0-9) Eosinophils (%) (Auto) 0 % (0-3) 1 % (0-3) Basophils (%) (Auto) 0 % (0-3) 1 % (0-3) Neutrophils # (Auto) 8.9 x10^3/uL (1.8-7.7) 6.0 x10^3/uL (1.8-7.7) Lymphocytes # (Auto) 2.2 x10^3/uL (1.0-4.8) 3.5 x10^3/uL (1.0-4.8) Monocytes # (Auto) 1.4 x10^3/uL (0.0-1.1) 1.2 x10^3/uL (0.0-1.1) Eosinophils # (Auto) 0.0 x10^3/uL (0.0-0.7) 0.0 x10^3/uL (0.0-0.7) Basophils # (Auto) 0.1 x10^3/uL (0.0-0.2) 0.1 x10^3/uL (0.0-0.2) Platelet Estimate Adequate (ADEQUATE) Polychromasia Slight Poikilocytosis Slight Anisocytosis Mod Spherocytes Occ Helmet Cells Occ Schistocytes Occ Hemoglobin A1c 5.4 % (4.8-5.6) Phosphorus Level 2.6 mg/dL (2.6-4.7) Test 05/26/20 19:15 05/27/20 05:05 Potassium Level 3.5 mmol/L (3.5-5.1) 4.0 mmol/L (3.5-5.1) Sodium Level 137 mmol/L (136-145) Chloride Level 103 mmol/L (98-107) Carbon Dioxide Level 25 mmol/L (21-32) Anion Gap 9 (6-14) Blood Urea Nitrogen 20 mg/dL (7-20) Creatinine 1.4 mg/dL (0.6-1.0) Estimated GFR (Cockcroft-Gault) 47.1 Glucose Level 93 mg/dL (70-99) Calcium Level 8.7 mg/dL (8.5-10.1) Phosphorus Level 2.3 mg/dL (2.6-4.7) Magnesium Level 1.8 mg/dL (1.8-2.4) Laboratory Tests Test 05/26/20 19:15 05/27/20 05:05 Potassium Level 3.5 mmol/L (3.5-5.1) 4.0 mmol/L (3.5-5.1) Sodium Level 137 mmol/L (136-145) Chloride Level 103 mmol/L (98-107) Carbon Dioxide Level 25 mmol/L (21-32) Anion Gap 9 (6-14) Blood Urea Nitrogen 20 mg/dL (7-20) Creatinine 1.4 mg/dL (0.6-1.0) Estimated GFR (Cockcroft-Gault) 47.1 Glucose Level 93 mg/dL (70-99) Calcium Level 8.7 mg/dL (8.5-10.1) Phosphorus Level 2.3 mg/dL (2.6-4.7) Magnesium Level 1.8 mg/dL (1.8-2.4) Medications Current Medications Morphine Sulfate (Morphine Sulfate) 5 mg 1X ONCE IV Last administered on 05/25/20at 21:07; Start 05/25/20 at 21:00; Stop 05/25/20 at 21:01; Status DC Famotidine (Pepcid Vial) 20 mg 1X ONCE IVP Last administered on 05/25/20at 21:07; Start 05/25/20 at 21:00; Stop 05/25/20 at 21:01; Status DC Ondansetron HCl (Zofran) 4 mg PRN Q8HRS PRN IV NAUSEA/VOMITING; Start 05/25/20 at 21:15; Stop 05/26/20 at 08:15; Status DC Morphine Sulfate (Morphine Sulfate) 4 mg PRN Q2HR PRN IV PAIN Last administered on 05/26/20at 02:42; Start 05/25/20 at 21:15; Stop 05/26/20 at 21:14; Status DC Sodium Chloride 1,000 ml @ 75 mls/hr 1X ONCE IV ; Start 05/25/20 at 21:15; Stop 05/26/20 at 10:34; Status DC Heparin Sodium (Porcine) (Heparin Sodium) 5,000 unit Q12HR SQ ; Start 05/26/20 at 09:00; Status Cancel Sennosides (Senna) 17.2 mg PRN BID PRN PO CONSTIPATION; Start 05/25/20 at 21:30 Docusate Sodium (Colace) 100 mg PRN DAILY PRN PO HARD STOOLS; Start 05/25/20 at 21:30; Stop 05/25/20 at 23:46; Status DC Ondansetron HCl (Zofran) 4 mg PRN Q6HRS PRN IVP NAUSEA/VOMITING; Start 05/25/20 at 21:30; Stop 05/26/20 at 08:15; Status DC Albuterol/ Ipratropium (Duoneb) 3 ml RTQID NEB ; Start 05/26/20 at 08:00; Stop 05/26/20 at 08:16; Status DC Potassium Chloride (Klor-Con) 40 meq 1X PRN PO PER PROTOCOL; Start 05/25/20 at 21:30; Stop 05/26/20 at 08:18; Status DC Magnesium Oxide (Magnesium Oxide) 400 mg BID PO Last administered on 05/27/20at 0 7:54; Start 05/26/20 at 09:00; Stop 05/27/20 at 21:01 Potassium Chloride/Water 100 ml @ 100 mls/hr Q1H IV Last administered on at 01:43; Start 05/25/20 at 22:00; Stop 05/26/20 at 01:59; Status DC Magnesium Sulfate 50 ml @ 25 mls/hr Q24H IV ; Start 05/25/20 at 22:00; Stop 05/27/20 at 23:59 Potassium Chloride/Water 100 ml @ 100 mls/hr PRN Q1HR PRN IV low k; Start 05/25/20 at 21:30 Insulin Human Lispro (HumaLOG) 0-5 UNITS TIDWMEALS SQ ; Start 05/26/20 at 08:00 Dextrose (Dextrose 50%-Water Syringe) 12.5 gm PRN Q15MIN PRN IV SEE COMMENTS; Start 05/25/20 at 21:30 Sodium Chloride 1,000 ml @ 100 mls/hr Q10H IV Last administered on 05/25/20at 22:26; Start 05/25/20 at 21:22; Stop 05/26/20 at 19:19; Status DC Pantoprazole Sodium (PROTONIX VIAL for IV PUSH) 40 mg DAILYAC IVP ; Start 05/26/20 at 07:30; Status Cancel Acetaminophen (Tylenol) 650 mg PRN Q4HRS PRN PO TEMP OVER 100.4F OR MILD PAIN; Start 05/25/20 at 23:30 Docusate Sodium (Colace) 100 mg PRN BID PRN PO HARD STOOLS; Start 05/25/20 at 23:30; Stop 05/26/20 at 08:16; Status DC Gabapentin (Neurontin) 300 mg TID PO Last administered on 05/27/20at 07:54; Start 05/26/20 at 09:00 Al Hydroxide/Mg Hydroxide (Mylanta Plus Xs) 30 ml PRN DAILY PRN PO HEARTBURN / GAS; Start 05/25/20 at 23:30 Ondansetron HCl (Zofran Odt) 4 mg PRN Q6HRS PRN PO NAUSEA; Start 05/25/20 at 23:30 Oxycodone/ Acetaminophen (Percocet 10/325) 1 tab PRN QID PRN PO PAIN MOD TO SEV Last administered on 05/27/20at 07:55; Start 05/25/20 at 23:30 Sucralfate (Carafate) 1 gm TIDAC PO Last administered on 05/27/20at 07:54; Start 05/26/20 at 07:30 Morphine Sulfate (Morphine Sulfate) 2 mg PRN Q2HR PRN IV PAIN; Start 05/25/20 at 23:45 Polyethylene Glycol (miraLAX PACKET) 17 gm PRN DAILY PRN PO CONSTIPATION- 2ND CHOICE Last administered on 05/26/20at 20:38; Start 05/25/20 at 23:45 Potassium Chloride (Klor-Con) 20 meq 1X ONCE PO ; Start 05/26/20 at 09:00; Stop 05/26/20 at 09:01; Status UNV Potassium Chloride (Klor-Con) 30 meq 1X ONCE PO Last administered on 05/26/20at 09:38; Start 05/26/20 at 09:00; Stop 05/26/20 at 09:08; Status DC Sodium Chloride (Normal Saline Flush) 3 ml QSHIFT PRN IV AFTER MEDS AND BLOOD DRAWS; Start 05/26/20 at 08:15 Sodium Chloride 1,000 ml @ 125 mls/hr Q8H IV Last administered on 05/27/20at 08:01; Start 05/26/20 at 08:06 Ondansetron HCl (Zofran) 4 mg PRN Q4HRS PRN IV NAUSEA/VOMITING; Start 05/26/20 at 08:15 Clonidine HCl (Catapres) 0.1 mg PRN Q6HRS PRN PO SBP>160 OR DBP>90; Start 05/26/20 at 08:15 Sodium Monofluorophosphate (Fleet Adult) 133 ml PRN DAILY PRN [place] CONSTIPATION; Start 05/26/20 at 08:15 Docusate Sodium (Colace) 100 mg PRN BID PRN PO HARD STOOLS Last administered on 05/26/20at 20:39; Start 05/26/20 at 08:15 Albuterol/ Ipratropium (Duoneb) 3 ml Q4HRS NEB Last administered on 05/26/20at 20:38; Start 05/26/20 at 12:00; Stop 05/26/20 at 20:43; Status DC Guaifenesin (Robitussin) 200 mg PRN Q4HRS PRN PO COUGH; Start 05/26/20 at 08:15 Enoxaparin Sodium (Lovenox 30mg Syringe) 30 mg Q24H SQ ; Start 05/26/20 at 09:00 Amlodipine Besylate (Norvasc) 10 mg DAILY PO Last administered on 05/27/20at 07:56; Start 05/26/20 at 09:00 Vitamin D (Vitamin D3) 5,000 unit DAILY PO Last administered on 05/26/20at 13:19; Start 05/26/20 at 09:00 Pantoprazole Sodium (Protonix) 40 mg DAILYAC PO Last administered on 05/27/20at 07:54; Start 05/26/20 at 09:00 Nicotine (Nicoderm Cq 14mg) 1 patch DAILY TD Last administered on 05/27/20at 07:57; Start 05/26/20 at 09:30 Potassium Bicarbonate (Potassium Effervescent Tablet) 40 meq 1X PRN PRN FT SEE ORDER COMMENTS; Start 05/26/20 at 13:15 Potassium Chloride/Water 100 ml @ 100 mls/hr PRN Q1HR PRN IV SEE ORDER COMMENTS; Start 05/26/20 at 13:15 Magnesium Sulfate 50 ml @ 25 mls/hr PRN Q24HRS PRN IV SEE ORDER COMMENTS; Start 05/26/20 at 13:15 Potassium Phos/ Sodium Phos (Phos-Nak) 1 pkt PRN BID PRN PO SEE ORDER COMMENTS; Start 05/26/20 at 21:00 Potassium Bicarbonate (Potassium Effervescent Tablet) 40 meq PRN Q4HRS PRN PO SEE ORDER COMMENTS; Start 05/26/20 at 13:15 Potassium Chloride/Water 100 ml @ 100 mls/hr PRN Q1HR PRN IV SEE ORDER COMMENTS; Start 05/26/20 at 13:15 Albuterol/ Ipratropium (Duoneb) 3 ml QID NEB Last administered on 05/27/20at 08:07; Start 05/27/20 at 09:00 Zolpidem Tartrate (Ambien) 5 mg PRN QHS PRN PO INSOMNIA; Start 05/27/20 at 08:30 Active Scripts Active Dok (Docusate Sodium) 100 Mg Capsule 100 Mg PO PRN BID PRN 30 Days Mag-Al Plus Xs Suspension (Mag Hydrox/Al Hydrox/Simeth) 30 Ml Oral.susp 30 Ml PO PRN DAILY PRN 10 Days Tylenol (Acetaminophen) 325 Mg Tablet 650 Mg PO PRN Q4HRS PRN 30 Days Ondansetron Odt (Ondansetron) 4 Mg Tab.rapdis 1 Tab PO PRN Q6-8HRS PRN Vitamin D3 (Cholecalciferol (Vitamin D3)) 5,000 Unit Capsule 5,000 Unit PO DAILY 30 Days Pantoprazole Sodium (Pantoprazole Sodium) 40 Mg Tablet.dr 40 Mg PO DAILYAC Reported [GI coctail] 30 Ml PO PRN TID PRN Oxycodone-Acetaminophen 10-325 (Oxycodone Hcl/Acetaminophen) 1 Each Tablet 1 Tab PO PRN QID PRN Sucralfate 1 Gm Tablet 1 Tab PO TID Amlodipine Besylate 10 Mg Tablet 1 Tab PO DAILY 90 Days Gabapentin 300 Mg Capsule 300 Mg PO TID Vitals/I & O Vital Sign - Last 24 Hours 05/26/20 05/26/20 05/26/20 05/26/20 11:00 11:00 12:30 12:30 Temp 97.8 97.8 Pulse 63 63 Resp 18 B/P (MAP) 106/62 (77) 106/62 Pulse Ox 100 100 O2 Delivery Room Air Room Air Room Air 05/26/20 05/26/20 05/26/20 05/26/20 13:54 15:00 15:32 19:00 Temp 97.6 97.6 Pulse 75 Resp 18 B/P (MAP) 112/68 (83) Pulse Ox 100 O2 Delivery Room Air Room Air Room Air Room Air 05/26/20 05/26/20 05/26/20 05/26/20 19:00 20:39 20:40 21:40 Temp 99.5 99.5 Pulse 84 Resp 18 17 16 B/P (MAP) 95/66 (76) Pulse Ox 100 100 O2 Delivery Room Air Room Air Room Air 05/26/20 05/27/20 05/27/20 05/27/20 23:00 01:47 02:47 02:51 Temp 97.8 98.2 97.8 98.2 Pulse 72 70 Resp 18 17 17 17 B/P (MAP) 90/57 (68) 96/68 (77) Pulse Ox 100 100 O2 Delivery Room Air Room Air Room Air 05/27/20 05/27/20 05/27/20 05/27/20 07:15 07:55 07:56 08:09 Temp 98.1 98.1 Pulse 81 81 Resp 20 B/P (MAP) 118/65 (82) 118/65 Pulse Ox 96 98 O2 Delivery Room Air Room Air Room Air Intake and Output 05/26/20 05/26/20 05/27/20 15:00 23:00 07:00 Intake Total 800 ml 1720 ml Balance 800 ml 1720 ml Justicifation of Admission Dx: Justifications for Admission: Justification of Admission Dx: Yes (pancreatitis) ANN MARIE CAMARA MD May 27, 2020 08:48
--- NOTE | 2020-05-27 09:57 | NUR ---
SW following. Discussed with RN, pt from home with family, room air, GI soft diet. Pt not wanting to apply for medicaid at this time. Anticipate discharge home with self care if okay with renal. SW will continue to follow.
--- NOTE | 2020-05-27 10:31 | PDOC ---
Date of Service: DATE: 05/27/20 TIME: 10:25 Subjective: Subjective: Upset because she had some middle abdominal pain overnight, asked for pain meds, says the nurse said she couldn't call the doctor after midnight. Also didn't get a sleeping pill. Now says she ran out of Protonix, also talks a lot about how her pharmacist and her doctor call in small amounts of her prescriptions to get her by til her next appt w/ her PCP. "I just can't eat sometimes and that's why I'm malnourished." Difficult to tease out the details, but I think describes some reflux/heartburn symptoms when she "can't" eat. Also reports vomiting and putting food in her mouth and "spitting it out." Objective: Vital Signs: Vital Signs Date Time Temp Pulse Resp B/P (MAP) Pulse Ox O2 Delivery O2 Flow Rate FiO2 05/27/20 09:00 Room Air 05/27/20 08:09 98 05/27/20 07:56 81 118/65 05/27/20 07:15 98.1 20 98.1 Labs: Laboratory Tests Test 05/26/20 19:15 05/27/20 05:05 Potassium Level 3.5 mmol/L 4.0 mmol/L Sodium Level 137 mmol/L Chloride Level 103 mmol/L Carbon Dioxide Level 25 mmol/L Anion Gap 9 Blood Urea Nitrogen 20 mg/dL Creatinine 1.4 mg/dL Estimated GFR (Cockcroft-Gault) 47.1 Glucose Level 93 mg/dL Calcium Level 8.7 mg/dL Phosphorus Level 2.3 mg/dL Magnesium Level 1.8 mg/dL Imaging: Renal US IMPRESSION: Unremarkable exam. PE: GEN: sitting on edge of bed, breakfast tray w/ a couple bites of oatmeal and eggs consumed LUNGS: clear HEART: RRR ABD: soft, non-tender NEURO/PSYCH: A & O 3, pretty worked up A/P: Urinary retention/incontinence, suprapubic discomfort - prior to admission MARAH - better Recurrent vomiting, abd pain, weight loss -- Extensive GI workup per consult note, no plans to repeat EGD at this time. Continue PPI, encouraged PO. Will be happy to provide PPI Rx w/ many refills when discharged. Justicifation of Admission Dx: Justifications for Admission: Justification of Admission Dx: Yes (pancreatitis) ANDRES HOFFMAN May 27, 2020 10:31
[2020-05-27 11:00] VITALS: BP 108/75
[2020-05-27] MEDS: CHOLECALCIFEROL (VITAMIN D3) 5,000 UNIT CAPSULE PO SCH (12:14)
--- NOTE | 2020-05-27 14:31 | PDOC ---
Renal-Progress Notes Subjective Notes Notes NO NEW COMPLAINTS History of Present Illness Hx of present illness STABLE Vitals Vitals Vital Signs Date Time Temp Pulse Resp B/P (MAP) Pulse Ox O2 Delivery O2 Flow Rate FiO2 05/27/20 14:26 Room Air 05/27/20 12:08 100 05/27/20 11:00 97.9 88 18 108/75 (86) 97.9 Weight Weight [ ] I.O. Intake and Output Intake and Output 05/27/20 07:00 Intake Total 2520 ml Balance 2520 ml Intake Oral 1520 ml IV Total 1000 ml # Voids 2 Labs Labs Laboratory Tests Test 05/26/20 19:15 05/27/20 05:05 Potassium Level 3.5 mmol/L (3.5-5.1) 4.0 mmol/L (3.5-5.1) Sodium Level 137 mmol/L (136-145) Chloride Level 103 mmol/L (98-107) Carbon Dioxide Level 25 mmol/L (21-32) Anion Gap 9 (6-14) Blood Urea Nitrogen 20 mg/dL (7-20) Creatinine 1.4 mg/dL (0.6-1.0) Estimated GFR (Cockcroft-Gault) 47.1 Glucose Level 93 mg/dL (70-99) Calcium Level 8.7 mg/dL (8.5-10.1) Phosphorus Level 2.3 mg/dL (2.6-4.7) Magnesium Level 1.8 mg/dL (1.8-2.4) Review of Systems Constitutional: yes: alert, oriented Ears/Nose/Throat: Yes: no symptom reported Eyes: Yes: no symptom reported Pulmonary: Yes no symptom reported Cardiovascular: Yes no symptom reported Gastrointestional: Yes: no symptom reported Genitourinary: Yes: no symptom reported Musculoskeletal: Yes: no symptom reported Skin: Yes no symptom reported Physical Exam General Appearance: no apparent distress Skin: warm Respiratory: bilateral CTA Heart: S1S2 Abdomen: soft Genitourinary: bladder flat Extremities: pulses present Neurology: alert, oriented Assessment Assessment IMP MARAH-PROB EXTRACELLULAR VOLUME DEPLETION-IMPROVED WITH CR OF 1.4 URINARY RETENTION-ABLE TO EMPTY LAST NIGHT ABD [id number] PLAN HYDRATION RENAL SONOGRAM WNL BLADDER SCAN WNL-NOT MUCH RESIDUAL BANDAR DAVIS MD May 27, 2020 14:31
[2020-05-27 15:12] VITALS: BP 92/59
[2020-05-27 19:00] VITALS: BP 96/60
[2020-05-27] MEDS: ZOLPIDEM 5 MG TABLET. PO PRN ×2 (20:36→21:41)
[2020-05-27] MEDS: MAGNESIUM SULFATE 2GM 50 ML IV SCH (20:37)
[2020-05-27 23:00] VITALS: BP 105/66
[2020-05-28] MEDS: IV NORMAL SALINE 1000ML BAG 1,000 ML IV SCH (02:34)
[2020-05-28] MEDS: oxyCODONE/APAP 10/325 1 TAB TABLET PO PRN ×2 (02:34→09:40)
[2020-05-28 03:00] VITALS: BP 130/91
--- NOTE | 2020-05-28 04:50 | NUR ---
Patient came to nurses station without mask on, asked about a scale to weigh herself. Gently reminded patient that she needed to wear her mask when she's out of her room and that her bed has a scale on it that I'd be more than happy to operate for her. Patient chuckled, declined bed scale and returned to room. Patient then called chef concierge light within a minute of returning to her room and asked "There isn't a scale in this whole [facility] This RN went to [facility] near dialysis rooms where scale is usually kept, to see if it was charged and zeroed out for patient use. This RN walked down noe to patient's room to assist her with use of scale and patient left room, again without mask on. Patient made her way to me and stated she was going to go down to the emergency room to use their scale. Informed patient that she couldn't leave the floor d/t her IV site and IV fluids running. Patient stated "I can do what I want. I can leave the hospital if I want to." Informed patient that she would have to sign AMA paperwork if it was her wish to leave the hospital. Patient verbalized understanding and stated "I'm tired of people telling me what I can and can't do in this hospital." Attempted to deescalate situation and told patient that I wasn't trying to argue with her, I was just letting her know what was doable and what wasn't in regards to hospital rules/policies. Patient stated "I'm not arguing either." and fast-walks back to her room. Will call nursing office machine service supervisor to notify her of situation and pass along to day RN.
[2020-05-28] MEDS: IPRATRPIUM/ALBUTEROL 0.5/2.5MG 3 ML NEBU. NEB SCH ×2 (06:55→11:00)
[2020-05-28 07:00] VITALS: BP 119/82
--- NOTE | 2020-05-28 07:25 | PDOC ---
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 soon as outpatient d/w rn and social work 29 MIN PT EXAM, CHART REVIEW d/c planning , > 50% OF TIME SPENT WITH EXAM, CHART REVIEW, PT CARE COORDINATION History of Present Illness History of Present Illness Identification/Chief Complaint Chief Complaint SEEN IN ER WITH atn , hypokalemia 55 year old female with history of diabetes type 2, hypertension, peptic ulcer disease, who presents to the ED today stating one of her family members is a "doctor" who told that she is having kidney failure. Patient states she has had trouble with voiding. Patient states for the last couple days she has had episode where it is painful to void and occasionally she voids on herself. Patient denies any injuries to her lumbar spine. Denies any abdominal pain, nausea or vomiting. Denies any fever. Past Medical History Past Medical History Past Medical History Past Medical History Past Medical History: Diabetes-Type II, Hypertension, P.U.D., Other Additional Past Medical Histor: stomach ulcers,CYCLIC VOMITING,SEPSIS NARCOTIC DEPENDENCE GASTRITIS Past Surgical History: Other Additional Past Surgical Histo: foot surgery, explor. abd sx Smoking Status: Current Every Day Smoker Additional Information: 0.25 PPD Alcohol Use: None Drug Use: None fhx COPD Cardiovascular: HTN, Hyperlipidemia Pulmonary: No pertinent hx GI: GERD, Other Hepatobiliary: No pertinent hx Psych: Anxiety, Depression Rheumatologic: Rheumatoid arthritis Infectious disease: No pertinent hx Renal/: No pertinent hx Endocrine: No pertinent hx Vitals Vitals Vital Signs Date Time Temp Pulse Resp B/P (MAP) Pulse Ox O2 Delivery O2 Flow Rate FiO2 05/28/20 06:55 100 Room Air 05/28/20 03:00 98.3 81 18 130/91 (104) 98.3 Physical Exam Physical Exam up walking in noe , nad General: Alert, Oriented X3, Cooperative, No acute distress Heart: Regular rate, Normal S1, Normal S2 Lungs: Clear Abdomen: Normal bowel sounds, Soft, No tenderness Extremities: No clubbing, No cyanosis, No edema Assessment and Plan Assessmemt and Plan Problems Medical Problems: (1) Acute renal failure Status: Acute (2) Hypokalemia Status: Acute (3) Pancreatitis Status: Acute Comment Review of Relevant I have reviewed the following items starr (where applicable) has been applied. Labs Laboratory Tests Test 05/26/20 19:15 05/27/20 05:05 Potassium Level 3.5 mmol/L (3.5-5.1) 4.0 mmol/L (3.5-5.1) Sodium Level 137 mmol/L (136-145) Chloride Level 103 mmol/L (98-107) Carbon Dioxide Level 25 mmol/L (21-32) Anion Gap 9 (6-14) Blood Urea Nitrogen 20 mg/dL (7-20) Creatinine 1.4 mg/dL (0.6-1.0) Estimated GFR (Cockcroft-Gault) 47.1 Glucose Level 93 mg/dL (70-99) Calcium Level 8.7 mg/dL (8.5-10.1) Phosphorus Level 2.3 mg/dL (2.6-4.7) Magnesium Level 1.8 mg/dL (1.8-2.4) Medications Current Medications Morphine Sulfate (Morphine Sulfate) 5 mg 1X ONCE IV Last administered on 05/25/20at 21:07; Start 05/25/20 at 21:00; Stop 05/25/20 at 21:01; Status DC Famotidine (Pepcid Vial) 20 mg 1X ONCE IVP Last administered on 05/25/20at 21:07; Start 05/25/20 at 21:00; Stop 05/25/20 at 21:01; Status DC Ondansetron HCl (Zofran) 4 mg PRN Q8HRS PRN IV NAUSEA/VOMITING; Start 05/25/20 at 21:15; Stop 05/26/20 at 08:15; Status DC Morphine Sulfate (Morphine Sulfate) 4 mg PRN Q2HR PRN IV PAIN Last administered on 05/26/20at 02:42; Start 05/25/20 at 21:15; Stop 05/26/20 at 21:14; Status DC Sodium Chloride 1,000 ml @ 75 mls/hr 1X ONCE IV ; Start 05/25/20 at 21:15; Stop 05/26/20 at 10:34; Status DC Heparin Sodium (Porcine) (Heparin Sodium) 5,000 unit Q12HR SQ ; Start 05/26/20 at 09:00; Status Cancel Sennosides (Senna) 17.2 mg PRN BID PRN PO CONSTIPATION; Start 05/25/20 at 21:30 Docusate Sodium (Colace) 100 mg PRN DAILY PRN PO HARD STOOLS; Start 05/25/20 at 21:30; Stop 05/25/20 at 23:46; Status DC Ondansetron HCl (Zofran) 4 mg PRN Q6HRS PRN IVP NAUSEA/VOMITING; Start 05/25/20 at 21:30; Stop 05/26/20 at 08:15; Status DC Albuterol/ Ipratropium (Duoneb) 3 ml RTQID NEB ; Start 05/26/20 at 08:00; Stop at 08:16; Status DC Potassium Chloride (Klor-Con) 40 meq 1X PRN PO PER PROTOCOL; Start 05/25/20 at 21:30; Stop 05/26/20 at 08:18; Status DC Magnesium Oxide (Magnesium Oxide) 400 mg BID PO Last administered on 05/27/20at 20:36; Start 05/26/20 at 09:00; Stop 05/27/20 at 21:01; Status DC Potassium Chloride/Water 100 ml @ 100 mls/hr Q1H IV Last administered on 05/26/20at 01:43; Start 05/25/20 at 22:00; Stop 05/26/20 at 01:59; Status DC Magnesium Sulfate 50 ml @ 25 mls/hr Q24H IV ; Start 05/25/20 at 22:00; Stop 05/27/20 at 23:59; Status DC Potassium Chloride/Water 100 ml @ 100 mls/hr PRN Q1HR PRN IV low k; Start 05/25/20 at 21:30 Insulin Human Lispro (HumaLOG) 0-5 UNITS TIDWMEALS SQ ; Start 05/26/20 at 08:00 Dextrose (Dextrose 50%-Water Syringe) 12.5 gm PRN Q15MIN PRN IV SEE COMMENTS; Start 05/25/20 at 21:30 Sodium Chloride 1,000 ml @ 100 mls/hr Q10H IV Last administered on 05/25/20at 22:26; Start 05/25/20 at 21:22; Stop 05/26/20 at 19:19; Status DC Pantoprazole Sodium (PROTONIX VIAL for IV PUSH) 40 mg DAILYAC IVP ; Start 05/26/20 at 07:30; Status Cancel Acetaminophen (Tylenol) 650 mg PRN Q4HRS PRN PO TEMP OVER 100.4F OR MILD PAIN; Start 05/25/20 at 23:30 Docusate Sodium (Colace) 100 mg PRN BID PRN PO HARD STOOLS; Start 05/25/20 at 23:30; Stop 05/26/20 at 08:16; Status DC Gabapentin (Neurontin) 300 mg TID PO Last administered on 05/27/20at 20:36; Start 05/26/20 at 09:00 Al Hydroxide/Mg Hydroxide (Mylanta Plus Xs) 30 ml PRN DAILY PRN PO HEARTBURN / GAS; Start 05/25/20 at 23:30 Ondansetron HCl (Zofran Odt) 4 mg PRN Q6HRS PRN PO NAUSEA; Start 05/25/20 at 23:30 Oxycodone/ Acetaminophen (Percocet 10/325) 1 tab PRN QID PRN PO PAIN MOD TO SEV Last administered on 05/28/20at 02:34; Start 05/25/20 at 23:30 Sucralfate (Carafate) 1 gm TIDAC PO Last administered on 05/27/20at 17:17; Start 05/26/20 at 07:30 Morphine Sulfate (Morphine Sulfate) 2 mg PRN Q2HR PRN IV PAIN; Start 05/25/20 at 23:45 Polyethylene Glycol (miraLAX PACKET) 17 gm PRN DAILY PRN PO CONSTIPATION- 2ND CHOICE Last administered on 05/26/20at 20:38; Start 05/25/20 at 23:45 Potassium Chloride (Klor-Con) 20 meq 1X ONCE PO ; Start 05/26/20 at 09:00; Stop 05/26/20 at 09:01; Status UNV Potassium Chloride (Klor-Con) 30 meq 1X ONCE PO Last administered on 05/26/20at 09:38; Start 05/26/20 at 09:00; Stop 05/26/20 at 09:08; Status DC Sodium Chloride (Normal Saline Flush) 3 ml QSHIFT PRN IV AFTER MEDS AND BLOOD DRAWS; Start 05/26/20 at 08:15 Sodium Chloride 1,000 ml @ 125 mls/hr Q8H IV Last administered on 05/28/20at 02:34; Start 05/26/20 at 08:06 Ondansetron HCl (Zofran) 4 mg PRN Q4HRS PRN IV NAUSEA/VOMITING; Start 05/26/20 at 08:15 Clonidine HCl (Catapres) 0.1 mg PRN Q6HRS PRN PO SBP>160 OR DBP>90; Start at 08:15 Sodium Monofluorophosphate (Fleet Adult) 133 ml PRN DAILY PRN [place] CONSTIPATION; Start 05/26/20 at 08:15 Docusate Sodium (Colace) 100 mg PRN BID PRN PO HARD STOOLS Last administered on 05/26/20at 20:39; Start 05/26/20 at 08:15 Albuterol/ Ipratropium (Duoneb) 3 ml Q4HRS NEB Last administered on 05/26/20at 20:38; Start 05/26/20 at 12:00; Stop 05/26/20 at 20:43; Status DC Guaifenesin (Robitussin) 200 mg PRN Q4HRS PRN PO COUGH; Start 05/26/20 at 08:15 Enoxaparin Sodium (Lovenox 30mg Syringe) 30 mg Q24H SQ ; Start 05/26/20 at 09:00 Amlodipine Besylate (Norvasc) 10 mg DAILY PO Last administered on 05/27/20at 07:56; Start 05/26/20 at 09:00 Vitamin D (Vitamin D3) 5,000 unit DAILY PO Last administered on 05/27/20at 12:14; Start 05/26/20 at 09:00 Pantoprazole Sodium (Protonix) 40 mg DAILYAC PO Last administered on 05/27/20at 07:54; Start 05/26/20 at 09:00 Nicotine (Nicoderm Cq 14mg) 1 patch DAILY TD Last administered on 05/27/20at 07:57; Start 05/26/20 at 09:30 Potassium Bicarbonate (Potassium Effervescent Tablet) 40 meq 1X PRN PRN FT SEE ORDER COMMENTS; Start 05/26/20 at 13:15 Potassium Chloride/Water 100 ml @ 100 mls/hr PRN Q1HR PRN IV SEE ORDER COMMENTS; Start 05/26/20 at 13:15 Magnesium Sulfate 50 ml @ 25 mls/hr PRN Q24HRS PRN IV SEE ORDER COMMENTS; Start 05/26/20 at 13:15 Potassium Phos/ Sodium Phos (Phos-Nak) 1 pkt PRN BID PRN PO SEE ORDER COMMENTS; Start 05/26/20 at 21:00 Potassium Bicarbonate (Potassium Effervescent Tablet) 40 meq PRN Q4HRS PRN PO SEE ORDER COMMENTS; Start 05/26/20 at 13:15 Potassium Chloride/Water 100 ml @ 100 mls/hr PRN Q1HR PRN IV SEE ORDER COMMENTS; Start 05/26/20 at 13:15 Albuterol/ Ipratropium (Duoneb) 3 ml QID NEB Last administered on 05/28/20at 06:55; Start 05/27/20 at 09:00 Zolpidem Tartrate (Ambien) 5 mg PRN QHS PRN PO INSOMNIA Last administered on 05/27/20at 21:41; Start 05/27/20 at 08:30 Active Scripts Active Dok (Docusate Sodium) 100 Mg Capsule 100 Mg PO PRN BID PRN 30 Days Mag-Al Plus Xs Suspension (Mag Hydrox/Al Hydrox/Simeth) 30 Ml Oral.susp 30 Ml PO PRN DAILY PRN 10 Days Tylenol (Acetaminophen) 325 Mg Tablet 650 Mg PO PRN Q4HRS PRN 30 Days Ondansetron Odt (Ondansetron) 4 Mg Tab.rapdis 1 Tab PO PRN Q6-8HRS PRN Vitamin D3 (Cholecalciferol (Vitamin D3)) 5,000 Unit Capsule 5,000 Unit PO DAILY 30 Days Pantoprazole Sodium (Pantoprazole Sodium) 40 Mg Tablet.dr 40 Mg PO DAILYAC Reported [GI coctail] 30 Ml PO PRN TID PRN Oxycodone-Acetaminophen 10-325 (Oxycodone Hcl/Acetaminophen) 1 Each Tablet 1 Tab PO PRN QID PRN Sucralfate 1 Gm Tablet 1 Tab PO TID Amlodipine Besylate 10 Mg Tablet 1 Tab PO DAILY 90 Days Gabapentin 300 Mg Capsule 300 Mg PO TID Vitals/I & O Vital Sign - Last 24 Hours 05/27/20 05/27/20 05/27/20 05/27/20 07:55 07:56 08:09 09:00 Pulse 81 B/P (MAP) 118/65 Pulse Ox 98 O2 Delivery Room Air Room Air Room Air 05/27/20 05/27/20 05/27/20 05/27/20 11:00 12:08 14:26 15:12 Temp 97.9 97.8 97.9 97.8 Pulse 88 90 Resp 18 20 B/P (MAP) 108/75 (86) 92/59 (70) Pulse Ox 97 100 96 O2 Delivery Room Air Room Air Room Air Room Air 05/27/20 05/27/20 05/27/20 05/27/20 15:30 15:51 19:00 20:33 Temp 99.5 99.5 Pulse 90 Resp 18 B/P (MAP) 96/60 (72) Pulse Ox 100 100 98 O2 Delivery Room Air Room Air Room Air Room Air 05/27/20 05/27/20 05/27/20 05/28/20 20:37 21:40 23:00 02:34 Temp 98.5 98.5 Pulse 104 Resp 18 B/P (MAP) 105/66 (79) Pulse Ox 98 98 100 100 O2 Delivery Room Air Room Air Room Air Room Air 05/28/20 05/28/20 05/28/20 03:00 04:00 06:55 Temp 98.3 98.3 Pulse 81 Resp 18 B/P (MAP) 130/91 (104) Pulse Ox 96 96 100 O2 Delivery Room Air Room Air Room Air Intake and Output 05/27/20 05/27/20 05/28/20 15:00 23:00 07:00 Intake Total 680 ml 760 ml 1400 ml Balance 680 ml 760 ml 1400 ml Justicifation of Admission Dx: Justifications for Admission: Justification of Admission Dx: Yes (pancreatitis) ANN MARIE CAMARA MD May 28, 2020:25
[2020-05-28] MEDS: INSULIN LISPRO 300 UNITS/3 ML VIAL. SQ SCH (08:00)
[2020-05-28 08:53] LABS: CALCIUM 8.7 mg/dL (8.5-10.1); CREATININE 1.1 mg/dL (0.6-1.0); GFR 62.2; POTASSIUM 3.8 mmol/L (3.5-5.1)
[2020-05-28] MEDS: ENOXAPARIN 30 MG/0.3 ML SYRINGE. SQ SCH (09:00)
[2020-05-28 09:33] VITALS: BP 119/82
[2020-05-28] MEDS: amLODIPine BESYLATE 10 MG TABLET PO SCH (09:33)
[2020-05-28] MEDS: GABAPENTIN 300 MG CAPSULE. PO SCH (09:33)
[2020-05-28] MEDS: SUCRALFATE 1 GM TABLET. PO SCH (09:33)
[2020-05-28] MEDS: PANTOPRAZOLE 40 MG TABLET.DR. PO SCH (09:34)
[2020-05-28] MEDS: NICOTINE 14MG PATCH. TD SCH (09:35)
--- NOTE | 2020-05-28 10:19 | NUR ---
SW following. Discussed with RN, pt from home with family, room air, GI soft. PT/OT recommending home. Anticipate possible discharge home today, possibly pending opinion from Dr. Vasquez. GERMAN will continue to follow.
--- NOTE | 2020-05-28 10:32 | PDOC ---
Date of Service: DATE: 05/28/20 TIME: 10:30 Subjective: Subjective: Feeling better, ate half of breakfast, wants to go home, says she has Protonix Rx waiting at pharmacy. Objective: Vital Signs: Vital Signs Date Time Temp Pulse Resp B/P (MAP) Pulse Ox O2 Delivery O2 Flow Rate FiO2 05/28/20 09:40 20 94 Room Air 05/28/20 09:33 86 119/82 05/28/20 07:00 98.6 98.6 Labs: Laboratory Tests Test 05/28/20 07:45 05/28/20 08:06 Sodium Level 142 mmol/L Potassium Level 3.8 mmol/L Chloride Level 110 mmol/L Carbon Dioxide Level 26 mmol/L Anion Gap 6 Blood Urea Nitrogen 15 mg/dL Creatinine 1.1 mg/dL Estimated GFR (Cockcroft-Gault) 62.2 Glucose Level 96 mg/dL Calcium Level 8.7 mg/dL Glucose (Fingerstick) 94 mg/dL PE: GEN: NAD LUNGS: CTAB HEART: RRR ABD: S/ND/NT NEURO/PSYCH: A & O 3, less anxious A/P: Urinary retention/incontinence, suprapubic discomfort - prior to admission MARAH - better Recurrent vomiting, abd pain - better than past Weight loss -- Dc per primary on PPI. Justicifation of Admission Dx: Justifications for Admission: Justification of Admission Dx: Yes (pancreatitis) ANDRES HOFFMAN May 28, 2020 10:32
--- NOTE | 2020-05-28 10:49 | PDOC3 ---
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 soon as outpatient d/w rn and social work 29 MIN PT EXAM, CHART REVIEW d/c planning , > 50% OF TIME SPENT WITH EXAM, CHART REVIEW, PT CARE COORDINATION History of Present Illness History of Present Illness Identification/Chief Complaint Chief Complaint SEEN IN ER WITH atn , hypokalemia 55 year old female with history of diabetes type 2, hypertension, peptic ulcer disease, who presents to the ED today stating one of her family members is a "doctor" who told that she is having kidney failure. Patient states she has had trouble with voiding. Patient states for the last couple days she has had episode where it is painful to void and occasionally she voids on herself. Patient denies any injuries to her lumbar spine. Denies any abdominal pain, nausea or vomiting. Denies any fever. Past Medical History Past Medical History Past Medical History Past Medical History Past Medical History: Diabetes-Type II, Hypertension, P.U.D., Other Additional Past Medical Histor: stomach ulcers,CYCLIC VOMITING,SEPSIS NARCOTIC DEPENDENCE GASTRITIS Past Surgical History: Other Additional Past Surgical Histo: foot surgery, explor. abd sx Smoking Status: Current Every Day Smoker Additional Information: 0.25 PPD Alcohol Use: None Drug Use: None fhx COPD Cardiovascular: HTN, Hyperlipidemia Pulmonary: No pertinent hx GI: GERD, Other Hepatobiliary: No pertinent hx Psych: Anxiety, Depression Rheumatologic: Rheumatoid arthritis Infectious disease: No pertinent hx Renal/: No pertinent hx Endocrine: No pertinent hx FINAL DIAGNOSIS Problems Medical Problems: (1) Acute renal failure Status: Acute (2) Hypokalemia Status: Acute (3) Pancreatitis Status: Acute Brief Hospital Course Ms. Rajput is a 55 old [sex] who presented with [ ACUTE PANCREATITIS ] CONDITION AT DISCHARGE: Improved, Stable Discharge Medications Current Medications Morphine Sulfate (Morphine Sulfate) 5 mg 1X ONCE IV Last administered on 05/25/20at 21:07; Start 05/25/20 at 21:00; Stop 05/25/20 at 21:01; Status DC Famotidine (Pepcid Vial) 20 mg 1X ONCE IVP Last administered on 05/25/20at 21:07; Start 05/25/20 at 21:00; Stop 05/25/20 at 21:01; Status DC Ondansetron HCl (Zofran) 4 mg PRN Q8HRS PRN IV NAUSEA/VOMITING; Start 05/25/20 at 21:15; Stop 05/26/20 at 08:15; Status DC Morphine Sulfate (Morphine Sulfate) 4 mg PRN Q2HR PRN IV PAIN Last administered on 05/26/20at 02:42; Start 05/25/20 at 21:15; Stop 05/26/20 at 21:14; Status DC Sodium Chloride 1,000 ml @ 75 mls/hr 1X ONCE IV ; Start 05/25/20 at 21:15; Stop 05/26/20 at 10:34; Status DC Heparin Sodium (Porcine) (Heparin Sodium) 5,000 unit Q12HR SQ ; Start 05/26/20 at 09:00; Status Cancel Sennosides (Senna) 17.2 mg PRN BID PRN PO CONSTIPATION; Start 05/25/20 at 21:30 Docusate Sodium (Colace) 100 mg PRN DAILY PRN PO HARD STOOLS; Start 05/25/20 at 21:30; Stop 05/25/20 at 23:46; Status DC Ondansetron HCl (Zofran) 4 mg PRN Q6HRS PRN IVP NAUSEA/VOMITING; Start 05/25/20 at 21:30; Stop 05/26/20 at 08:15; Status DC Albuterol/ Ipratropium (Duoneb) 3 ml RTQID NEB ; Start 05/26/20 at 08:00; Stop 05/26/20 at 08:16; Status DC Potassium Chloride (Klor-Con) 40 meq 1X PRN PO PER PROTOCOL; Start 05/25/20 at 21:30; Stop 05/26/20 at 08:18; Status DC Magnesium Oxide (Magnesium Oxide) 400 mg BID PO Last administered on 05/27/20at 20:36; Start 05/26/20 at 09:00; Stop 05/27/20 at 21:01; Status DC Potassium Chloride/Water 100 ml @ 100 mls/hr Q1H IV Last administered on 05/26/20at 01:43; Start 05/25/20 at 22:00; Stop 05/26/20 at 01:59; Status DC Magnesium Sulfate 50 ml @ 25 mls/hr Q24H IV ; Start 05/25/20 at 22:00; Stop 05/27/20 at 23:59; Status DC Potassium Chloride/Water 100 ml @ 100 mls/hr PRN Q1HR PRN IV low k; Start 05/25/20 at 21:30 Insulin Human Lispro (HumaLOG) 0-5 UNITS TIDWMEALS SQ ; Start 05/26/20 at 08:00 Dextrose (Dextrose 50%-Water Syringe) 12.5 gm PRN Q15MIN PRN IV SEE COMMENTS; Start 05/25/20 at 21:30 Sodium Chloride 1,000 ml @ 100 mls/hr Q10H IV Last administered on 05/25/20at 22:26; Start 05/25/20 at 21:22; Stop 05/26/20 at 19:19; Status DC Pantoprazole Sodium (PROTONIX VIAL for IV PUSH) 40 mg DAILYAC IVP ; Start 05/26/20 at 07:30; Status Cancel Acetaminophen (Tylenol) 650 mg PRN Q4HRS PRN PO TEMP OVER 100.4F OR MILD PAIN; Start 05/25/20 at 23:30 Docusate Sodium (Colace) 100 mg PRN BID PRN PO HARD STOOLS; Start 05/25/20 at 23:30; Stop 05/26/20 at 08:16; Status DC Gabapentin (Neurontin) 300 mg TID PO Last administered on 05/28/20at 09:33; Start 05/26/20 at 09:00 Al Hydroxide/Mg Hydroxide (Mylanta Plus Xs) 30 ml PRN DAILY PRN PO HEARTBURN / GAS; Start 05/25/20 at 23:30 Ondansetron HCl (Zofran Odt) 4 mg PRN Q6HRS PRN PO NAUSEA; Start 05/25/20 at 23:30 Oxycodone/ Acetaminophen (Percocet 10/325) 1 tab PRN QID PRN PO PAIN MOD TO SEV Last administered on 05/28/20at 09:40; Start 05/25/20 at 23:30 Sucralfate (Carafate) 1 gm TIDAC PO Last administered on 05/28/20at 09:33; Sta rt 05/26/20 at 07:30 Morphine Sulfate (Morphine Sulfate) 2 mg PRN Q2HR PRN IV PAIN; Start 05/25/20 at 23:45 Polyethylene Glycol (miraLAX PACKET) 17 gm PRN DAILY PRN PO CONSTIPATION- 2ND CHOICE Last administered on 05/26/20at 20:38; Start 05/25/20 at 23:45 Potassium Chloride (Klor-Con) 20 meq 1X ONCE PO ; Start 05/26/20 at 09:00; Stop 05/26/20 at 09:01; Status UNV Potassium Chloride (Klor-Con) 30 meq 1X ONCE PO Last administered on 05/26/20at 09:38; Start 05/26/20 at 09:00; Stop 05/26/20 at 09:08; Status DC Sodium Chloride (Normal Saline Flush) 3 ml QSHIFT PRN IV AFTER MEDS AND BLOOD DRAWS; Start 05/26/20 at 08:15 Sodium Chloride 1,000 ml @ 125 mls/hr Q8H IV Last administered on 05/28/20at 02:34; Start 05/26/20 at 08:06 Ondansetron HCl (Zofran) 4 mg PRN Q4HRS PRN IV NAUSEA/VOMITING; Start 05/26/20 at 08:15 Clonidine HCl (Catapres) 0.1 mg PRN Q6HRS PRN PO SBP>160 OR DBP>90; Start 05/26/20 at 08:15 Sodium Monofluorophosphate (Fleet Adult) 133 ml PRN DAILY PRN [place] CONSTIPATION; Start 05/26/20 at 08:15 Docusate Sodium (Colace) 100 mg PRN BID PRN PO HARD STOOLS Last administered on 05/26/20at 20:39; Start 05/26/20 at 08:15 Albuterol/ Ipratropium (Duoneb) 3 ml Q4HRS NEB Last administered on 05/26/20at 20:38; Start 05/26/20 at 12:00; Stop 05/26/20 at 20:43; Status DC Guaifenesin (Robitussin) 200 mg PRN Q4HRS PRN PO COUGH; Start 05/26/20 at 08:15 Enoxaparin Sodium (Lovenox 30mg Syringe) 30 mg Q24H SQ ; Start 05/26/20 at 09:00 Amlodipine Besylate (Norvasc) 10 mg DAILY PO Last administered on 05/28/20at 09:33; Start 05/26/20 at 09:00 Vitamin D (Vitamin D3) 5,000 unit DAILY PO Last administered on 05/27/20at 12:14; Start 05/26/20 at 09:00 Pantoprazole Sodium (Protonix) 40 mg DAILYAC PO Last administered on 05/28/20at 09:34; Start 05/26/20 at 09:00 Nicotine (Nicoderm Cq 14mg) 1 patch DAILY TD Last administered on 05/28/20at 09:35; Start 05/26/20 at 09:30 Potassium Bicarbonate (Potassium Effervescent Tablet) 40 meq 1X PRN PRN FT SEE ORDER COMMENTS; Start 05/26/20 at 13:15 Potassium Chloride/Water 100 ml @ 100 mls/hr PRN Q1HR PRN IV SEE ORDER COMMENTS; Start 05/26/20 at 13:15 Magnesium Sulfate 50 ml @ 25 mls/hr PRN Q24HRS PRN IV SEE ORDER COMMENTS; Start 05/26/20 at 13:15 Potassium Phos/ Sodium Phos (Phos-Nak) 1 pkt PRN BID PRN PO SEE ORDER COMMENTS; Start 05/26/20 at 21:00 Potassium Bicarbonate (Potassium Effervescent Tablet) 40 meq PRN Q4HRS PRN PO SEE ORDER COMMENTS; Start 05/26/20 at 13:15 Potassium Chloride/Water 100 ml @ 100 mls/hr PRN Q1HR PRN IV SEE ORDER COMMENTS; Start 05/26/20 at 13:15 Albuterol/ Ipratropium (Duoneb) 3 ml QID NEB Last administered on 05/28/20at 06:55; Start 05/27/20 at 09:00 Zolpidem Tartrate (Ambien) 5 mg PRN QHS PRN PO INSOMNIA Last administered on 05/27/20at 21:41; Start 05/27/20 at 08:30 Active Scripts Active Dok (Docusate Sodium) 100 Mg Capsule 100 Mg PO PRN BID PRN 30 Days Mag-Al Plus Xs Suspension (Mag Hydrox/Al Hydrox/Simeth) 30 Ml Oral.susp 30 Ml PO PRN DAILY PRN 10 Days Tylenol (Acetaminophen) 325 Mg Tablet 650 Mg PO PRN Q4HRS PRN 30 Days Ondansetron Odt (Ondansetron) 4 Mg Tab.rapdis 1 Tab PO PRN Q6-8HRS PRN Vitamin D3 (Cholecalciferol (Vitamin D3)) 5,000 Unit Capsule 5,000 Unit PO DAILY 30 Days Pantoprazole Sodium (Pantoprazole Sodium) 40 Mg Tablet.dr 40 Mg PO DAILYAC Reported [GI coctail] 30 Ml PO PRN TID PRN Oxycodone-Acetaminophen 10-325 (Oxycodone Hcl/Acetaminophen) 1 Each Tablet 1 Tab PO PRN QID PRN Sucralfate 1 Gm Tablet 1 Tab PO TID Amlodipine Besylate 10 Mg Tablet 1 Tab PO DAILY 90 Days Gabapentin 300 Mg Capsule 300 Mg PO TID Vital Signs Vital Signs Date Time Temp Pulse Resp B/P (MAP) Pulse Ox O2 Delivery O2 Flow Rate FiO2 05/28/20 09:40 20 94 Room Air 05/28/20 09:33 86 119/82 05/28/20 07:00 98.6 98.6 Labs Laboratory Tests Test 05/26/20 19:15 05/27/20 05:05 05/28/20 07:45 05/28/20 08:06 Potassium Level 3.5 mmol/L (3.5-5.1) 4.0 mmol/L (3.5-5.1) 3.8 mmol/L (3.5-5.1) Sodium Level 137 mmol/L (136-145) 142 mmol/L (136-145) Chloride Level 103 mmol/L (98-107) 110 mmol/L (98-107) Carbon Dioxide Level 25 mmol/L (21-32) 26 mmol/L (21-32) Anion Gap 9 (6-14) 6 (6-14) Blood Urea Nitrogen 20 mg/dL (7-20) 15 mg/dL (7-20) Creatinine 1.4 mg/dL (0.6-1.0) 1.1 mg/dL (0.6-1.0) Estimated GFR (Cockcroft-Gault) 47.1 62.2 Glucose Level 93 mg/dL (70-99) 96 mg/dL (70-99) Calcium Level 8.7 mg/dL (8.5-10.1) 8.7 mg/dL (8.5-10.1) Phosphorus Level 2.3 mg/dL (2.6-4.7) Magnesium Level 1.8 mg/dL (1.8-2.4) Glucose (Fingerstick) 94 mg/dL (70-99) Laboratory Tests Test 05/28/20 07:45 05/28/20 08:06 Sodium Level 142 mmol/L (136-145) Potassium Level 3.8 mmol/L (3.5-5.1) Chloride Level 110 mmol/L (98-107) Carbon Dioxide Level 26 mmol/L (21-32) Anion Gap 6 (6-14) Blood Urea Nitrogen 15 mg/dL (7-20) Creatinine 1.1 mg/dL (0.6-1.0) Estimated GFR (Cockcroft-Gault) 62.2 Glucose Level 96 mg/dL (70-99) Calcium Level 8.7 mg/dL (8.5-10.1) Glucose (Fingerstick) 94 mg/dL (70-99) Allergies Allergies Coded Allergies Type Severity Reaction Last Updated Verified Penicillins Allergy Intermediate HAS TOLERATED AMOXICILLIN 06/04/19 Yes Disposition/Orders: D/C to Home Justicifation of Admission Dx: Justifications for Admission: Justification of Admission Dx: Yes (pancreatitis) ANN MARIE CAMARA MD May 28, 2020 10:48
[2020-05-28] MEDS ORDERED: GUAI100L12 PO (10:52)
[2020-05-28] MEDS ORDERED: POLY17PO28 PO (10:52)
--- NOTE | 2020-05-28 10:54 | DISCH ---
DISCHARGE INSTRUCTIONS Condition on Discharge Condition on Discharge: Stable Activity After Discharge Activity Instructions for Disc: Activity as tolerated Lifting Instructions after Dis: No heavy lifting, No pulling or pushing Exercise Instruction after Dis: Walk 10 min, 3 x per day, Progress as tolerated Driving Instructions after Dis: Do not drive today Weight Bearing Status after Di: No restrictions, Full weight bearing, As tolerated Diet after Discharge Diet after Discharge: Cardiac Diet Texture: Regular Liquid Texture: Thin Liquid Swallowing Supervision: None needed Wound Incision Care Wound/Incision Care: No wound care needed Checks after Discharge Checks after discharge: Check blood press - daily Contacting the DRYi after DC Call your doctor for: If your condition worsens Treatment/Equipment after DC Adaptive Equipment Issued: None ANN MARIE CAMARA MD May 28, 2020 10:54
[2020-05-28] MEDS: POLYETHYLENE GLYCOL 3350 17 GM PACKET. PO PRN (11:06)
--- NOTE | 2020-05-28 11:54 | PDOC ---
Renal-Progress Notes Subjective Notes Notes NO NEW COMPLAINTS History of Present Illness Hx of present illness STABLE Vitals Vitals Vital Signs Date Time Temp Pulse Resp B/P (MAP) Pulse Ox O2 Delivery O2 Flow Rate FiO2 05/28/20 11:00 100 Room Air 05/28/20 10:40 20 05/28/20 09:33 86 119/82 05/28/20 07:00 98.6 98.6 Weight Weight [ ] I.O. Intake and Output Intake and Output 05/28/20 07:00 Intake Total 2840 ml Balance 2840 ml Intake Oral 1840 ml IV Total 1000 ml # Voids 5 Labs Labs Laboratory Tests Test 05/28/20 07:45 05/28/20 08:06 Sodium Level 142 mmol/L (136-145) Potassium Level 3.8 mmol/L (3.5-5.1) Chloride Level 110 mmol/L (98-107) Carbon Dioxide Level 26 mmol/L (21-32) Anion Gap 6 (6-14) Blood Urea Nitrogen 15 mg/dL (7-20) Creatinine 1.1 mg/dL (0.6-1.0) Estimated GFR (Cockcroft-Gault) 62.2 Glucose Level 96 mg/dL (70-99) Calcium Level 8.7 mg/dL (8.5-10.1) Glucose (Fingerstick) 94 mg/dL (70-99) Review of Systems Constitutional: yes: alert, oriented Ears/Nose/Throat: Yes: no symptom reported Eyes: Yes: no symptom reported Pulmonary: Yes no symptom reported Cardiovascular: Yes no symptom reported Gastrointestional: Yes: no symptom reported Genitourinary: Yes: no symptom reported Musculoskeletal: Yes: no symptom reported Skin: Yes no symptom reported Physical Exam General Appearance: no apparent distress Skin: warm Respiratory: bilateral CTA Heart: S1S2 Abdomen: soft Genitourinary: bladder flat Extremities: pulses present Neurology: alert, oriented Assessment Assessment IMP MARAH-ESSENTIALLY RESOLVED URINARY RETENTION-ABLE TO EMPTY LAST NIGHT ABD [id number] PLAN HYDRATION RENAL SONOGRAM WNL BLADDER SCAN WNL-NOT MUCH RESIDUAL WILL SIGN OFF PLEASE CALL IF NEEDED BANDAR DAVIS MD May 28, 2020 11:54
--- NOTE | 2020-05-28 12:30 | NUR ---
DISCHARGE INSTRUCTIONS GIVEN, QUESTIONS AND CONCERNS ANSWERED, PATIENT VERBALIZED UNDERSTANDING OF DISCHARGE INFORMATION INCLUDING TAKING ALL MEDICATIONS INSTRUCTED AND FOLLOWING UP WITH HER PRIMARY PROVIDER IN 1-2 WEEKS. ALL PERSONAL BELONGINGS GATHERED BY THE PATIENT AND PLACED IN BAGS FOR DISCHARGE. SALINE LOCK REMOVED PER [employer] AND BANDAGE APPLIED.
--- NOTE | 2020-05-28 12:50 | NUR ---
PATIENT LEAVES THE UNIT PER W/C, EMOTIONAL SUPPORT GIVEN, FOLLOW UP APPOINTMENTS ENCOURAGED.
[2020-05-28 19:09] LABS: COMMENT IMMUNOFIX SERUM Note: (.); IMMUNOGLOBULIN A 402 mg/dL (87-352); IMMUNOGLOBULIN G 1015 mg/dL (586-1602); IMMUNOGLOBULIN M 64 mg/dL (26-217)
== END 2020-05-28 12:50 | disposition home or self-care (01) | DRG 438 ==
LOC: ER 17:10 → 5 NORTH 20:50
PROVIDERS: ADMIT Internal Medicine; ATTEND Internal Medicine
DX: K85.90 Acute pancreatitis without necrosis or infection, unspecified (principal); N17.0 Acute kidney failure with tubular necrosis; N28.0 Ischemia and infarction of kidney; K21.9 Gastro-esophageal reflux disease without esophagitis; E87.6 Hypokalemia; G89.29 Other chronic pain; M54.9 Dorsalgia, unspecified; F32.9 Major depressive disorder, single episode, unspecified; F41.9 Anxiety disorder, unspecified; R33.9 Retention of urine, unspecified; E78.5 Hyperlipidemia, unspecified; M06.9 Rheumatoid arthritis, unspecified; I10 Essential (primary) hypertension; R32 Unspecified urinary incontinence; E11.43 Type 2 diabetes mellitus with diabetic autonomic (poly)neuropathy; F17.200 Nicotine dependence, unspecified, uncomplicated; K31.84 Gastroparesis; Z87.11 Personal history of peptic ulcer disease; Z83.3 Family history of diabetes mellitus; Z82.5 Family history of asthma and other chronic lower respiratory diseases; Z82.49 Family history of ischemic heart disease and other diseases of the circulatory system; Z88.0 Allergy status to penicillin; Z71.6 Tobacco abuse counseling; Z83.49 Family history of other endocrine, nutritional and metabolic diseases
CPT/HCPCS: 36415; 76770; 80048; 80053; 80307; 81001; 82784; 82962; 83036; 83690; 83735; 84100; 84132; 85025; 86334; 86335; 94640; 94760; 96374; 96375; 99285; G0480; J1815; J2270; J3480; J3490; J7030; G0378

== ENCOUNTER 2020-08-24 14:18 | Emergency (ER) | payer SELFPAY ==
[~2020-08-24] VITALS: Ht 170.2 cm; Wt 54.9 kg
[~2020-08-24 14:18] MED LIST changes: +AMLO-187 PO; -AMLO10TA8 PO; +GI COCTAIL PO; +GUAI100L12 PO; +POLY17PO28 PO; +SUCR1TAB PO
[2020-08-24] MEDS ORDERED: IV NORMAL SALINE 1000ML BAG 1,000 ML IV ONE (15:30)
[2020-08-24] MEDS ORDERED: METOCLOPRAMIDE HCL 10 MG/2 ML VIAL. IVP ONE (15:30)
[2020-08-24 16:26] LABS: BASO # 0.1 x10^3/uL (0.0-0.2); BASO % 1 % (0-3); EOS # 0.1 x10^3/uL (0.0-0.7); EOS % 1 % (0-3); HEMATOCRIT 46.1 % (36.0-47.0); HEMOGLOBIN 14.9 g/dL (12.0-15.5); LYMPH # 2.1 x10^3/uL (1.0-4.8); LYMPH % 22 % (24-48); MEAN CORPUSCULAR HEMOGLOBIN 27 pg (25-35); MEAN CORPUSCULAR HGB CONC 32 g/dL (31-37); MEAN CORPUSCULAR VOLUME 82 fL (79-100); MONO # 0.7 x10^3/uL (0.0-1.1); MONO % 7 % (0-9); NEUT # 6.7 x10^3/uL (1.8-7.7); NEUT % 70 % (31-73); PLATELET COUNT 225 x10^3/uL (140-400); RED BLOOD COUNT 5.62 x10^6/uL (3.50-5.40); RED CELL DISTRIBUTION WIDTH 18.7 % (11.5-14.5); WHITE BLOOD COUNT 9.6 x10^3/uL (4.0-11.0)
[2020-08-24] MEDS ORDERED: FAMOTIDINE 20 MG/2 ML VIAL IVP ONE (16:30)
[2020-08-24] MEDS ORDERED: LIDO:MAALOX 1:1 20 ML SINGLE DOSE. SWSW ONE (16:30)
--- NOTE | 2020-08-24 16:34 | PHYS DOC ---
Past Medical History Past Medical History: Diabetes-Type II, Hypertension, P.U.D., Other Additional Past Medical Histor: stomach ulcers,CYCLIC VOMITING,SEPSIS,NARCOTIC DEPENDENCE,GASTRITIS (ANIA BANSAL DO) Past Surgical History: Other Additional Past Surgical Histo: foot surgery, explor. abd sx (ANIA BANSAL DO) Smoking Status: Current Every Day Smoker Additional Information: <1 PPD Alcohol Use: None Drug Use: None (ANIA BANSAL DO) General Adult EDM: Chief Complaint: ABDOMINAL PAIN HPI: HPI: Patient is a 55 year old female who presented to ER for evaluation of epigastric abdominal pain associate with nausea and vomiting since waking up this morning. Patient has history of peptic ulcer, gastroparesis, cyclic vomiting syndrome. Patient denies drinking any alcohol. Patient also has history of pancreatitis. Patient claimed that she has been taking her medication as directed. She denies any chest pain, no trouble breathing, no cough or fever. Patient denies been exposed to anybody who tested positive for COVID-19. (ANIA BANSAL DO) Review of Systems: Review of Systems: Constitutional: Denies fever or chills. [] Eyes: Denies change in visual acuity. [] HENT: Denies nasal congestion or sore throat. [] Respiratory: Denies cough or shortness of breath. [] Cardiovascular: Denies chest pain or edema. [] GI: Positive for abdominal pain, nausea, vomiting, no diarrhea : Denies dysuria. [] Musculoskeletal: Denies back pain or joint pain. [] Integument: Denies rash. [] Neurologic: Denies headache, focal weakness or sensory changes. [] Endocrine: Denies polyuria or polydipsia. [] Lymphatic: Denies swollen glands. [] Psychiatric: Denies depression or anxiety. [] (ANIA BANSAL DO) Heart Score: Risk Factors: Risk Factors: DM, Current or recent (<one month) smoker, HTN, HLP, family hist ory of CAD, obesity. Risk Scores: Score 0 - 3: 2.5% MACE over next 6 weeks - Discharge Home Score 4 - 6: 20.3% MACE over next 6 weeks - Admit for Clinical Observation Score 7 - 10: 72.7% MACE over next 6 weeks - Early Invasive Strategies (ANIA BANSAL DO) Current Medications: Current Medications Medications (Trade) Dose Ordered Sig/Emile Start Time Stop Time Status Last Admin Dose Admin Famotidine (Pepcid Vial) 20 mg 1X ONCE 08/24/20 16:30 08/24/20 16:31 DC 08/24/20 16:31 20 MG Metoclopramide HCl (Reglan Vial) 10 mg 1X ONCE 08/24/20 15:30 08/24/20 15:31 DC 08/24/20 16:30 10 MG Multi-Ingredient Mouthwash/Gargle (Gi Cocktail) 20 ml 1X ONCE 08/24/20 16:30 08/24/20 16:31 DC 08/24/20 16:29 20 ML Sodium Chloride 1,000 ml @ 1,000 mls/hr 1X ONCE 08/24/20 15:30 08/24/20 16:29 DC 08/24/20 16:32 1,000 MLS/HR (ANIA BANSAL DO) Allergies: Allergies: Allergies Coded Allergies Type Severity Reaction Last Updated Verified Penicillins Allergy Intermediate HAS TOLERATED AMOXICILLIN 06/04/19 Yes (ANIA BANSAL DO) Physical Exam: PE: Constitutional: Well developed, well nourished, MODERATE acute distress DUE TO PAIN, non-toxic appearance. [] HENT: Normocephalic, atraumatic, bilateral external ears normal, oropharynx moist, no oral exudates, nose normal. [] Eyes: PERRLA, EOMI, conjunctiva normal, no discharge. [] Neck: Normal range of motion, no tenderness, supple, no stridor. [] Cardiovascular:SINUS TACHYCARDIA, Regular rhythm, no murmur [] Lungs & Thorax: Bilateral breath sounds clear to auscultation [] Abdomen: Bowel sounds normal, soft, tenderness IN EPIGASTRIC AREA, no masses, no pulsatile masses. [] Skin: Warm, dry, no erythema, no rash. [] Back: No tenderness, no CVA tenderness. [] Extremities: No tenderness, no cyanosis, no clubbing, ROM intact, no edema. [] Neurologic: Alert and oriented X 3, normal motor function, normal sensory function, no focal deficits noted. [] Psychologic: Affect normal, judgement normal, mood normal. [] (ANIA BANSAL DO) Current Patient Data: Labs: Laboratory Tests Test 08/24/20 16:13 White Blood Count 9.6 x10^3/uL (4.0-11.0) Red Blood Count 5.62 x10^6/uL (3.50-5.40) H Hemoglobin 14.9 g/dL (12.0-15.5) Hematocrit 46.1 % (36.0-47.0) Mean Corpuscular Volume 82 fL (79-100) Mean Corpuscular Hemoglobin 27 pg (25-35) Mean Corpuscular Hemoglobin Concent 32 g/dL (31-37) Red Cell Distribution Width 18.7 % (11.5-14.5) H Platelet Count 225 x10^3/uL (140-400) Neutrophils (%) (Auto) 70 % (31-73) Lymphocytes (%) (Auto) 22 % (24-48) L Monocytes (%) (Auto) 7 % (0-9) Eosinophils (%) (Auto) 1 % (0-3) Basophils (%) (Auto) 1 % (0-3) Neutrophils # (Auto) 6.7 x10^3/uL (1.8-7.7) Lymphocytes # (Auto) 2.1 x10^3/uL (1.0-4.8) Monocytes # (Auto) 0.7 x10^3/uL (0.0-1.1) Eosinophils # (Auto) 0.1 x10^3/uL (0.0-0.7) Basophils # (Auto) 0.1 x10^3/uL (0.0-0.2) Laboratory Tests 08/24/20 16:13 Vital Signs: Vital Signs Date Time Temp Pulse Resp B/P (MAP) Pulse Ox O2 Delivery O2 Flow Rate FiO2 08/24/20 15:22 98.3 122 24 207/134 (158) 100 Room Air 98.3 (ANIA BANSAL DO) EKG: EKG: [] (ANIA BANSAL DO) Radiology/Procedures: Radiology/Procedures: [] (ANIA BANSAL DO) Radiology/Procedures: Abdominal ultrasound Limited: Reason for examination: Distended gallbladder. Positive Ash sign. Comparison is made to previous study dated 05/20/2019. No abnormality seen in the visualized portion of the pancreas. No abnormality seen at the inferior vena cava. The liver appears be normal in size at 12.5 cm without a focal lesion evident. There is however fatty infiltration in the liver. Gallbladder shows no cholelithiasis, sludge or wall thickening. Common bile duct is normal in caliber at 4.6 mm. Right kidney measures 10.2 x 4.8 x 3.4 cm in greatest dimension and shows normal cortical medullary differentiation with no mass or hydronephrosis. No free fluid is evident. IMPRESSION: No gallbladder disease evident. IMPRESSION: 1. BLADDER is markedly distended. Correlate for outlet obstruction. 2. No acute process identified within the abdomen or pelvis. 3. Gallbladder is unremarkable. Electronically signed by: Nasrin Saenz MD (08/24/2020 8:42 PM) [facility] DICTATED AND SIGNED BY: NASRIN SAENZ MD DATE: 08/24/202041 CC: CATALINA WALKER MD; ANIA BANSAL DO; UNKNOWN PCP NAME ~ Exam: CT of abdomen and pelvis without contrast INDICATION: Abdominal pain, nausea vomiting TECHNIQUE: Sequential axial images through the abdomen and pelvis obtained without IV contrast. Sagittal and coronal reformatted images were reconstructed from the axial data and reviewed. Comparisons: 11/18/2019 FINDINGS: Heart size is normal. No pericardial effusion. Visualized lung bases are clear. Evaluation of solid organs limited secondary to noncontrast technique. Liver, spleen, pancreas, gallbladder and adrenals are unremarkable. No perinephric inflammation or hydronephrosis. No renal or ureteral calculi are identified. Bladder is distended and appears thin-walled. Uterus is nonenlarged. No abnormal adnexal mass. Large and small bowel are unremarkable. Appendix is not identified. No free intra-abdominal air or fluid. Abdominal aorta has a normal course and caliber. No enlarged abdominal lymph nodes are identified. No suspicious osseous lesions or acute fractures. IMPRESSION: 1. Gallbladder is markedly distended. Correlate for outlet obstruction. 2. No acute process identified within the abdomen or pelvis. Exposure: One or more of the following in the visualized dose reduction techniques were utilized for this examination: 1. Automated exposure control 2. Adjustment of the MA and/or KV according to patient size 3. Use of iterative of reconstructive technique (CATALINA WALKER MD) Course & Med Decision Making: Course & Med Decision Making Pertinent Labs and Imaging studies reviewed. (See chart for details) Patient is a 55-year-old female who presented to ER for evaluation of abdominal pain associate with nausea and vomiting. Patient was given medication in the ER, CT scan abdomen pelvis pending at this time. Patient care was endorsed to Dr. Catalina Walker as shift change, awaiting for CT scan of her abdomen and pelvic (ANIA BANSAL DO) Tila Disclaimer: Tila Disclaimer: This electronic medical record was generated, in whole or in part, using a voice recognition dictation system. (ANIA BANSAL DO) Departure Departure Impression: Primary Impression: Abdominal pain Additional Impression: Cyclic vomiting syndrome Disposition: DC HOME SELF CARE/HOMELESS Condition: IMPROVED Referrals: UNKNOWN PCP NAME (PCP) Patient Instructions: Cyclic Vomiting Syndrome Scripts Promethazine HCl (Promethazine HCl) 50 Mg Supp.rect 50 MG RC PRN 2-3XD PRN for NAUSEA/VOMITING for 10 Days, #20 SUPP.RECT Prov: CATALINA WALKER MD 08/24/20 ANIA BANSAL DO Aug 24, 2020 16:34 CATALINA WALKER MD Aug 24, 2020 21:08
[2020-08-24 16:40] LABS: CREATININE 1.1 mg/dL (0.6-1.0); GFR 62.2; POTASSIUM 3.6 mmol/L (3.5-5.1)
[2020-08-24 16:40] LABS: BILIRUBIN,URINE NEGATIVE (NEG); CLARITY,URINE CLEAR; COLOR,URINE YELLOW; NITRITE,URINE NEGATIVE (NEG); PH,URINE 7.5 (<5.0-8.0); PROTEIN,URINE 30 mg/dL (NEG-TRACE); UROBILINOGEN,URINE 0.2 mg/dL (0.2 mg/dL)
[2020-08-24 16:47] LABS: ALBUMIN 4.5 g/dL (3.4-5.0); ALBUMIN/GLOBULIN RATIO 0.9 (1.0-1.7); MAGNESIUM 2.2 mg/dL (1.8-2.4); TOTAL BILIRUBIN 0.7 mg/dL (0.2-1.0); TOTAL PROTEIN 9.4 g/dL (6.4-8.2)
[2020-08-24 16:50] LABS: BARBITURATES NEG (NEG); BENZODIAZEPINES NEG (NEG); CANNABINOIDS NEG (NEG); COCAINE NEG (NEG); METHADONE NEG (NEG); OPIATES NEG (NEG); PHENCYCLIDINE NEG (NEG)
[2020-08-24 16:56] LABS: AMPHETAMINE/METHAMPHETAMINE NEG (NEG)
[2020-08-24 16:57] LABS: BACTERIA,URINE 0 /HPF (0-FEW); RBC,URINE OCC /HPF (0-2); WBC,URINE 0 /HPF (0-4)
[2020-08-24] MEDS ORDERED: diphenhydrAMINE 50 MG/ML VIAL IVP ONE (17:00)
--- NOTE | 2020-08-24 18:21 | RAD ---
EXAM: Frontal view of the chest, AP views of the abdomen in upright and supine positions. CLINICAL INDICATION: Reason: abdominal pain, nausea, vomiting. button artifact on pants / Spl. Instructions: / History: COMPARISON: None. FINDINGS: The heart is not enlarged. Mediastinal and hilar contours are normal. No focal parenchymal airspace opacity. Nipple shadow over the left lower lung. No pleural effusion or pneumothorax. No abnormal small or large bowel dilatation. Moderate to large volume colonic stool content. No abnormal soft tissue mass effect. No suspicious calcifications are seen. No free intraperitoneal gas. Hip joint degenerative changes are seen. IMPRESSION: 1. No radiographic evidence for acute cardiopulmonary process. 2. No evidence for bowel obstruction. 3. Moderate to large volume colonic stool content. Electronically signed by: Leon Méndez MD (08/24/2020 6:18 PM) [facility]
--- NOTE | 2020-08-24 19:18 | RAD ---
Exam: CT of abdomen and pelvis without contrast INDICATION: Abdominal pain, nausea vomiting TECHNIQUE: Sequential axial images through the abdomen and pelvis obtained without IV contrast. Sagittal and coronal reformatted images were reconstructed from the axial data and reviewed. Comparisons: 11/18/2019 FINDINGS: Heart size is normal. No pericardial effusion. Visualized lung bases are clear. Evaluation of solid organs limited secondary to noncontrast technique. Liver, spleen, pancreas, gallbladder and adrenals are unremarkable. No perinephric inflammation or hydronephrosis. No renal or ureteral calculi are identified. Bladder is distended and appears thin-walled. Uterus is nonenlarged. No abnormal adnexal mass. Large and small bowel are unremarkable. Appendix is not identified. No free intra-abdominal air or fluid. Abdominal aorta has a normal course and caliber. No enlarged abdominal lymph nodes are identified. No suspicious osseous lesions or acute fractures. IMPRESSION: 1. Gallbladder is markedly distended. Correlate for outlet obstruction. 2. No acute process identified within the abdomen or pelvis. Exposure: One or more of the following in the visualized dose reduction techniques were utilized for this examination: 1. Automated exposure control 2. Adjustment of the MA and/or KV according to patient size 3. Use of iterative of reconstructive technique Electronically signed by: Nasrin Cali MD (08/24/2020 7:15 PM) [facility]
[2020-08-24] MEDS ORDERED: DICYCLOMINE 20 MG/2 ML VIAL. IM ONE (20:00)
[2020-08-24 20:30] VITALS: BP 179/110
--- NOTE | 2020-08-24 20:55 | RAD ---
Abdominal ultrasound Limited: Reason for examination: Distended gallbladder. Positive Ash sign. Comparison is made to previous study dated 05/20/2019. No abnormality seen in the visualized portion of the pancreas. No abnormality seen at the inferior vena cava. The liver appears be normal in size at 12.5 cm without a focal lesion evident. There is however fatty infiltration in the liver. Gallbladder shows no cholelithiasis, sludge or wall thickening. Common bile duct is normal in caliber at 4.6 mm. Right kidney measures 10.2 x 4.8 x 3.4 cm in greatest dimension and shows normal cortical medullary differentiation with no mass or hydronephrosis. No free fluid is evident. IMPRESSION: No gallbladder disease evident. Electronically signed by: Teri Tomlinson MD (08/24/2020 8:52 PM) [facility]
[2020-08-24] MEDS ORDERED: PROM50SU7 RC (21:08)
== END 2020-08-24 21:25 | disposition home or self-care (01) ==
LOC: ER 14:19
DX: R10.13 Epigastric pain (principal); R11.15 Cyclical vomiting syndrome unrelated to migraine; R00.0 Tachycardia, unspecified; E11.9 Type 2 diabetes mellitus without complications; I10 Essential (primary) hypertension; F17.200 Nicotine dependence, unspecified, uncomplicated; Z88.0 Allergy status to penicillin
CPT/HCPCS: 36415; 74022; 74176; 76705; 80053; 80307; 81001; 83690; 83735; 85025; 96361; 96372; 96374; 96375; 99285; G0480; J0500; J1200; J2060; J2765; J3490; J7030

== ENCOUNTER 2020-09-18 18:41 | Emergency (ER) | payer SELFPAY ==
[~2020-09-18] VITALS: Ht 170.2 cm; Wt 53.0 kg
[~2020-09-18 18:41] MED LIST changes: +PROM50SU7 RC
[2020-09-18] MEDS ORDERED: PANTOPRAZOLE IV PUSH 40 MG VIAL. IVP ONE (21:30)
[2020-09-18] MEDS ORDERED: IV NORMAL SALINE 1000ML BAG 1,000 ML IV ONE (21:30)
[2020-09-18 22:00] LABS: BASO # 0.1 x10^3/uL (0.0-0.2); BASO % 1 % (0-3); EOS % 0 % (0-3); HEMATOCRIT 41.3 % (36.0-47.0); HEMOGLOBIN 13.4 g/dL (12.0-15.5); LYMPH # 1.2 x10^3/uL (1.0-4.8); LYMPH % 9 % (24-48); MEAN CORPUSCULAR HEMOGLOBIN 26 pg (25-35); MEAN CORPUSCULAR HGB CONC 33 g/dL (31-37); MEAN CORPUSCULAR VOLUME 80 fL (79-100); MONO # 0.8 x10^3/uL (0.0-1.1); MONO % 6 % (0-9); NEUT # 11.9 x10^3/uL (1.8-7.7); NEUT % 85 % (31-73); PLATELET COUNT 234 x10^3/uL (140-400); RED BLOOD COUNT 5.18 x10^6/uL (3.50-5.40); RED CELL DISTRIBUTION WIDTH 18.3 % (11.5-14.5); WHITE BLOOD COUNT 14.1 x10^3/uL (4.0-11.0)
[2020-09-18] MEDS ORDERED: LIDO:MAALOX 1:1 20 ML SINGLE DOSE. PO ONE (22:00)
[2020-09-18 22:09] LABS: PROTHROMBIN TIME PATIENT 12.8 SEC (11.7-14.0)
[2020-09-18 22:13] LABS: CALCIUM 10.8 mg/dL (8.5-10.1); CREATININE 1.4 mg/dL (0.6-1.0); GFR 47.1; POTASSIUM 3.2 mmol/L (3.5-5.1)
[2020-09-18 22:21] LABS: ALBUMIN 4.4 g/dL (3.4-5.0); ALBUMIN/GLOBULIN RATIO 0.8 (1.0-1.7); MAGNESIUM 2.2 mg/dL (1.8-2.4); TOTAL BILIRUBIN 0.9 mg/dL (0.2-1.0); TOTAL PROTEIN 9.6 g/dL (6.4-8.2)
--- NOTE | 2020-09-18 22:26 | PHYS DOC ---
Past Medical History Past Medical History: Diabetes-Type II, GERD, Hypertension, P.U.D., Other Additional Past Medical Histor: stomach ulcers,CYCLIC VOMITING,SEPSIS,NARCOTIC DEPENDENCE,GASTRITIS Past Surgical History: Other Additional Past Surgical Histo: foot surgery, explor. abd sx Smoking Status: Current Every Day Smoker Alcohol Use: None Drug Use: None General Adult EDM: Chief Complaint: HEMATEMESIS/VOMITING BLOOD HPI: HPI: 55-year-old female presents with report of epigastric abdominal pain with associated nausea and vomiting that started at 1400. Patient does report some blood-tinged in her vomitus. Patient reports history of known gastric ulcer for which she has been on medication. Patient reports she is currently out of her "cocktail ". Reports she does have Protonix at home which she takes. Denies any fever. Denies cough. Denies shortness of air. Denies known sick contacts. Denies known exposure to COVID-19. Review of Systems: Review of Systems: Constitutional: Denies fever or chills Eyes: Denies redness or eye pain HENT: Denies nasal congestion or sore throat Respiratory: Denies cough or shortness of breath Cardiovascular: Denies chest pain or palpitations GI: Reports epigastric abdominal pain, nausea, and vomiting : Denies dysuria or hematuria Musculoskeletal: Denies back pain or joint pain Integument: Denies rash or skin lesions Neurologic: Denies headache, focal weakness or sensory changes Complete systems were reviewed and found to be within normal limits, except as documented in this note. Current Medications: Current Medications Medications (Trade) Dose Ordered Sig/Emile Start Time Stop Time Status Last Admin Dose Admin Multi-Ingredient Mouthwash/Gargle (Gi Cocktail) 20 ml 1X ONCE 09/18/20 22:00 09/18/20 22:01 DC 09/18/20 21:59 20 ML Pantoprazole Sodium (PROTONIX VIAL for IV PUSH) 80 mg 1X ONCE 09/18/20 21:30 09/18/20 21:31 DC 09/18/20 21:58 80 MG Sodium Chloride 1,000 ml @ 1,000 mls/hr 1X ONCE 09/18/20 21:30 09/18/20 22:29 09/18/20 21:58 1,000 MLS/HR Allergies: Allergies: Allergies Coded Allergies Type Severity Reaction Last Updated Verified Penicillins Allergy Intermediate HAS TOLERATED AMOXICILLIN 06/04/19 Yes Physical Exam: PE: Constitutional: Well developed, well nourished, no acute distress, non-toxic appearance HENT: Normocephalic, atraumatic Eyes: Conjunctiva normal, no discharge Neck: Normal range of motion, no tenderness, supple Lungs & Thorax: No respiratory distress, equal chest rise and fall Abdomen: Soft, epigastric tenderness, no guarding/rebound tenderness/distention Skin: Warm, dry, no erythema, no rash Back: No tenderness, no CVA tenderness Extremities: No tenderness, ROM intact, no edema Neurologic: Alert and oriented X 3, no focal deficits noted Psychologic: Affect anxious, hyperverbal, judgment normal Current Patient Data: Labs: Laboratory Tests Test 09/18/20 21:07 09/18/20 21:50 Ethyl Alcohol Level < 10 mg/dL (0-10) White Blood Count 14.1 x10^3/uL (4.0-11.0) H Red Blood Count 5.18 x10^6/uL (3.50-5.40) Hemoglobin 13.4 g/dL (12.0-15.5) Hematocrit 41.3 % (36.0-47.0) Mean Corpuscular Volume 80 fL (79-100) Mean Corpuscular Hemoglobin 26 pg (25-35) Mean Corpuscular Hemoglobin Concent 33 g/dL (31-37) Red Cell Distribution Width 18.3 % (11.5-14.5) H Platelet Count 234 x10^3/uL (140-400) Neutrophils (%) (Auto) 85 % (31-73) H Lymphocytes (%) (Auto) 9 % (24-48) L Monocytes (%) (Auto) 6 % (0-9) Eosinophils (%) (Auto) 0 % (0-3) Basophils (%) (Auto) 1 % (0-3) Neutrophils # (Auto) 11.9 x10^3/uL (1.8-7.7) H Lymphocytes # (Auto) 1.2 x10^3/uL (1.0-4.8) Monocytes # (Auto) 0.8 x10^3/uL (0.0-1.1) Eosinophils # (Auto) 0.0 x10^3/uL (0.0-0.7) Basophils # (Auto) 0.1 x10^3/uL (0.0-0.2) Prothrombin Time 12.8 SEC (11.7-14.0) Prothrombin Time INR 1.0 (0.8-1.1) Activated Partial Thromboplast Time 33 SEC (24-38) Sodium Level 139 mmol/L (136-145) Potassium Level 3.2 mmol/L (3.5-5.1) L Chloride Level 98 mmol/L (98-107) Carbon Dioxide Level 27 mmol/L (21-32) Anion Gap 14 (6-14) Blood Urea Nitrogen 24 mg/dL (7-20) H Creatinine 1.4 mg/dL (0.6-1.0) H Estimated GFR (Cockcroft-Gault) 47.1 BUN/Creatinine Ratio 17 (6-20) Glucose Level 176 mg/dL (70-99) H Calcium Level 10.8 mg/dL (8.5-10.1) H Magnesium Level 2.2 mg/dL (1.8-2.4) Total Bilirubin 0.9 mg/dL (0.2-1.0) Aspartate Amino Transferase (AST) 25 U/L (15-37) Alanine Aminotransferase (ALT) 29 U/L (14-59) Alkaline Phosphatase 86 U/L (46-116) Troponin I Quantitative 0.053 ng/mL (0.000-0.055) Total Protein 9.6 g/dL (6.4-8.2) H Albumin 4.4 g/dL (3.4-5.0) Albumin/Globulin Ratio 0.8 (1.0-1.7) L Lipase 96 U/L (73-393) Laboratory Tests 09/18/20 21:50 Laboratory Tests 09/18/20 21:50 Vital Signs: Vital Signs Date Time Temp Pulse Resp B/P (MAP) Pulse Ox O2 Delivery O2 Flow Rate FiO2 09/18/20 20:53 98.7 148 18 186/142 (157) 100 Room Air 98.7 EKG: EKG: @2118 Sinus tachycardia at 133bpm, J point elevation to V3-V4, QRS 82ms, QT/QTc 288/430ms, t wave inversion aVL, Radiology/Procedures: Radiology/Procedures: [] Course & Med Decision Making: Course & Med Decision Making Pertinent Lab studies reviewed. (See chart for details) Patient with known gastric ulcer presents with report of epigastric abdominal pain with associated nausea and vomiting. Reports she is currently out of her "GI cocktail ". Patient reports she has been taking Protonix. Patient does have a history of cyclic vomiting syndrome as well. Denies dysuria. Reports some "blood-tinged "on vomitus. Labs obtained and posted to chart. H&H stable. Symptomatic treatment provided with interval improvement of symptoms. EKG stable. Patient stable for discharge with outpatient follow-up with PCP/GI. GI referral provided. Discussed findings and plan with patient, who acknowledges understanding and agreement. Dragon Disclaimer: Dragnilay Disclaimer: This electronic medical record was generated, in whole or in part, using a voice recognition dictation system. Departure Departure Impression: Primary Impression: Epigastric abdominal pain Additional Impression: Hypokalemia Disposition: 01 DC HOME SELF CARE/HOMELESS Condition: STABLE Referrals: UNKNOWN PCP NAME (PCP) MATHIEU GARCIA MD Patient Instructions: Abdominal Pain (Nonspecific), Gastritis, Adult, [id number] Scripts Mag Hydrox/Aluminum Hyd/Simeth (Maalox Advanced Suspension) 355 Ml Oral.susp 10 ML PO Q12HR PRN for GI SYMPTOMS, #355 [facility] Pharmacist: Please mix 1:1 with Viscous lidocaine. Patient to take a total of 20mls PO q12h prn gastritis. Prov: KATIE HOUSE DO 09/18/20 KATIE HOUSE DO Sep 18, 2020 22:26
[2020-09-18 23:39] VITALS: BP 133/79
[2020-09-18] MEDS ORDERED: MAG355OR11 PO (23:54)
[2020-09-19] MEDS ORDERED: POTASSIUM CHLORIDE 20 MEQ TABLET.ER. PO ONE
--- NOTE | 2020-09-19 03:14 | EKG ---
[facility] [address] [place] [address] Test Date: 2020-09-18 Test Time: 21:18:53 Pat Name: DANIELA MANUEL Department: Room: Gender: F [employer]: : 1965 Requested By: KATIE HOUSE Order Number: [id number] Reading MD: Measurements Intervals [place] Rate: 133 P: 75 MI: 140 QRS: 47 QRSD: 82 T: 80 QT: 288 QTc: 430 Interpretive Statements SINUS TACHYCARDIA BIATRIAL ENLARGEMENT QRS(T) CONTOUR ABNORMALITY CONSIDER ANTEROSEPTAL MYOCARDIAL DAMAGE ABNORMAL ECG RI6.01 No previous ECG available for comparison
== END 2020-09-19 00:10 | disposition home or self-care (01) ==
LOC: ER 18:41
DX: R10.13 Epigastric pain (principal); R11.2 Nausea with vomiting, unspecified; E87.6 Hypokalemia; E11.9 Type 2 diabetes mellitus without complications; I10 Essential (primary) hypertension; K21.9 Gastro-esophageal reflux disease without esophagitis; F17.200 Nicotine dependence, unspecified, uncomplicated; Z98.890 Other specified postprocedural states; Z88.0 Allergy status to penicillin
CPT/HCPCS: 36415; 80053; 82553; 83690; 83735; 84484; 85025; 85610; 85730; 93005; 96361; 96374; 99285; C9113; G0480; J7030

== ENCOUNTER 2020-09-21 11:47 | Emergency (ER) | payer SELFPAY ==
[~2020-09-21] VITALS: Ht 170.2 cm; Wt 53.0 kg
[~2020-09-21 11:47] MED LIST changes: +MAG355OR11 PO
[2020-09-21] MEDS ORDERED: METOCLOPRAMIDE HCL 10 MG/2 ML VIAL. IVP ONE (12:15)
[2020-09-21] MEDS ORDERED: IV NORMAL SALINE 1000ML BAG 1,000 ML IV ONE (12:15)
[2020-09-21] MEDS ORDERED: MORPHINE SULFATE 4 MG/ML VIAL. IV ONE (12:30)
[2020-09-21 13:01] LABS: BASO # 0.1 x10^3/uL (0.0-0.2); BASO % 1 % (0-3); EOS % 0 % (0-3); HEMATOCRIT 46.7 % (36.0-47.0); HEMOGLOBIN 15.1 g/dL (12.0-15.5); LYMPH # 2.3 x10^3/uL (1.0-4.8); LYMPH % 18 % (24-48); MEAN CORPUSCULAR HEMOGLOBIN 26 pg (25-35); MEAN CORPUSCULAR HGB CONC 32 g/dL (31-37); MEAN CORPUSCULAR VOLUME 80 fL (79-100); MONO # 0.7 x10^3/uL (0.0-1.1); MONO % 6 % (0-9); NEUT % 76 % (31-73); PLATELET COUNT 269 x10^3/uL (140-400); RED BLOOD COUNT 5.81 x10^6/uL (3.50-5.40); RED CELL DISTRIBUTION WIDTH 18.1 % (11.5-14.5); WHITE BLOOD COUNT 13.2 x10^3/uL (4.0-11.0)
[2020-09-21 13:02] LABS: BILIRUBIN,URINE NEGATIVE (NEG); CLARITY,URINE CLEAR; COLOR,URINE YELLOW; NITRITE,URINE NEGATIVE (NEG); PROTEIN,URINE 100 mg/dL (NEG-TRACE); UROBILINOGEN,URINE 0.2 mg/dL (0.2 mg/dL)
[2020-09-21 13:10] LABS: BARBITURATES NEG (NEG); BENZODIAZEPINES NEG (NEG); CANNABINOIDS NEG (NEG); COCAINE NEG (NEG); METHADONE NEG (NEG); OPIATES NEG (NEG); PHENCYCLIDINE NEG (NEG)
[2020-09-21 13:12] LABS: ALBUMIN/GLOBULIN RATIO 0.9 (1.0-1.7); CALCIUM 11.9 mg/dL (8.5-10.1); CREATININE 1.6 mg/dL (0.6-1.0); GFR 40.3; TOTAL BILIRUBIN 0.9 mg/dL (0.2-1.0); TOTAL PROTEIN 10.8 g/dL (6.4-8.2)
[2020-09-21 13:21] LABS: POTASSIUM 2.9 mmol/L (3.5-5.1)
[2020-09-21 13:23] LABS: AMPHETAMINE/METHAMPHETAMINE NEG (NEG)
[2020-09-21 13:26] LABS: BACTERIA,URINE 0 /HPF (0-FEW); HYALINE CASTS, URINE FEW /HPF
--- NOTE | 2020-09-21 14:18 | PHYS DOC ---
Past Medical History Past Medical History: Diabetes-Type II, GERD, Hypertension, P.U.D., Other Additional Past Medical Histor: stomach ulcers,CYCLIC VOMITING,SEPSIS,NARCOTIC DEPENDENCE,GASTRITIS Past Surgical History: Other Additional Past Surgical Histo: foot surgery, explor. abd sx Smoking Status: Current Every Day Smoker Alcohol Use: None Drug Use: None General Adult EDM: Chief Complaint: GI PROBLEM HPI: HPI: Patient is a 55 year old female with history of peptic ulcer disease, cyclic vomiting syndrome, presented to ER today for evaluation of epigastric abdominal pain associate with nausea and vomiting for few day. Patient denies any cough o r fever. Patient was evaluated here about 4 days ago for the same problem. Patient denies vomiting blood, she said her vomitus looked yellow now. Patient is scheduled to see a GI doctor this WEEK. Patient says she also ran out of her Neurontin, would like prescription for. Patient was seen here a few days ago, was prescribed GI cocktail, she had the prescription but she had not fILLED yet. Review of Systems: Review of Systems: Constitutional: Denies fever or chills. [] Eyes: Denies change in visual acuity. [] HENT: Denies nasal congestion or sore throat. [] Respiratory: Denies cough or shortness of breath. [] Cardiovascular: Denies chest pain or edema. [] GI: Positive for abdominal pain, nausea vomiting, no diarrhea, no constipation. : Denies dysuria. [] Musculoskeletal: Denies back pain or joint pain. [] Integument: Denies rash. [] Neurologic: Denies headache, focal weakness or sensory changes. [] Endocrine: Denies polyuria or polydipsia. [] Lymphatic: Denies swollen glands. [] Psychiatric: Denies depression or anxiety. [] Heart Score: Risk Factors: Risk Factors: DM, Current or recent (<one month) smoker, HTN, HLP, family history of CAD, obesity. Risk Scores: Score 0 - 3: 2.5% MACE over next 6 weeks - Discharge Home Score 4 - 6: 20.3% MACE over next 6 weeks - Admit for Clinical Observation Score 7 - 10: 72.7% MACE over next 6 weeks - Early Invasive Strategies Current Medications: Current Medications Medications (Trade) Dose Ordered Sig/Emile Start Time Stop Time Status Last Admin Dose Admin Metoclopramide HCl (Reglan Vial) 10 mg 1X ONCE 1/4/21 12:15 09/21/20 12:16 DC 09/21/20 12:36 10 MG Morphine Sulfate (Morphine Sulfate) 4 mg 1X ONCE 09/21/20 12:30 09/21/20 12:31 DC 09/21/20 12:40 4 MG Sodium Chloride 1,000 ml @ 1,000 mls/hr 1X ONCE 09/21/20 12:15 09/21/20 13:14 DC 09/21/20 12:39 1,000 MLS/HR Allergies: Allergies: Allergies Coded Allergies Type Severity Reaction Last Updated Verified Penicillins Allergy Intermediate HAS TOLERATED AMOXICILLIN 06/04/19 Yes Physical Exam: PE: Constitutional: Well developed, well nourished, no acute distress, non-toxic appearance. [] HENT: Normocephalic, atraumatic, bilateral external ears normal, oropharynx moist, no oral exudates, nose normal. [] Eyes: PERRLA, EOMI, conjunctiva normal, no discharge. [] Neck: Normal range of motion, no tenderness, supple, no stridor. [] Cardiovascular:Heart rate regular rhythm, no murmur [] Lungs & Thorax: Bilateral breath sounds clear to auscultation [] Abdomen: Bowel sounds normal, soft, There is tenderness to palpation in epigastric area, no masses, no pulsatile masses. Skin: Warm, dry, no erythema, no rash. Back: No tenderness, no CVA tenderness. Extremities: No tenderness, no cyanosis, no clubbing, ROM intact, no edema. [] Neurologic: Alert and oriented X 3, normal motor function, normal sensory function, no focal deficits noted. [] Psychologic: Affect normal, judgement normal, mood normal. [] Current Patient Data: Labs: Laboratory Tests Test 09/21/20 12:32 09/21/20 12:40 White Blood Count 13.2 x10^3/uL (4.0-11.0) H Red Blood Count 5.81 x10^6/uL (3.50-5.40) H Hemoglobin 15.1 g/dL (12.0-15.5) Hematocrit 46.7 % (36.0-47.0) Mean Corpuscular Volume 80 fL (79-100) Mean Corpuscular Hemoglobin 26 pg (25-35) Mean Corpuscular Hemoglobin Concent 32 g/dL (31-37) Red Cell Distribution Width 18.1 % (11.5-14.5) H Platelet Count 269 x10^3/uL (140-400) Neutrophils (%) (Auto) 76 % (31-73) H Lymphocytes (%) (Auto) 18 % (24-48) L Monocytes (%) (Auto) 6 % (0-9) Eosinophils (%) (Auto) 0 % (0-3) Basophils (%) (Auto) 1 % (0-3) Neutrophils # (Auto) 10.0 x10^3/uL (1.8-7.7) H Lymphocytes # (Auto) 2.3 x10^3/uL (1.0-4.8) Monocytes # (Auto) 0.7 x10^3/uL (0.0-1.1) Eosinophils # (Auto) 0.0 x10^3/uL (0.0-0.7) Basophils # (Auto) 0.1 x10^3/uL (0.0-0.2) Sodium Level 135 mmol/L (136-145) L Potassium Level 2.9 mmol/L (3.5-5.1) *L Chloride Level 93 mmol/L (98-107) L Carbon Dioxide Level 26 mmol/L (21-32) Anion Gap 16 (6-14) H Blood Urea Nitrogen 22 mg/dL (7-20) H Creatinine 1.6 mg/dL (0.6-1.0) H Estimated GFR (Cockcroft-Gault) 40.3 BUN/Creatinine Ratio 14 (6-20) Glucose Level 141 mg/dL (70-99) H Calcium Level 11.9 mg/dL (8.5-10.1) H Total Bilirubin 0.9 mg/dL (0.2-1.0) Aspartate Amino Transferase (AST) 24 U/L (15-37) Alanine Aminotransferase (ALT) 27 U/L (14-59) Alkaline Phosphatase 92 U/L (46-116) Total Protein 10.8 g/dL (6.4-8.2) H Albumin 5.0 g/dL (3.4-5.0) Albumin/Globulin Ratio 0.9 (1.0-1.7) L Lipase 136 U/L (73-393) Urine Collection Type Unknown Urine Color Yellow Urine Clarity Clear Urine pH 8.0 (<5.0-8.0) Urine Specific [place] 1.015 (1.000-1.030) Urine Protein 100 mg/dL (NEG-TRACE) Urine Glucose (UA) 100 mg/dL (NEG) Urine Ketones (Stick) Negative mg/dL (NEG) Urine Blood Trace (NEG) Urine Nitrite Negative (NEG) Urine Bilirubin Negative (NEG) Urine Urobilinogen Dipstick 0.2 mg/dL (0.2 mg/dL) Urine Leukocyte Esterase Negative (NEG) Urine RBC 6-10 /HPF (0-2) Urine WBC 1-4 /HPF (0-4) Urine Squamous Epithelial Cells Few /LPF Urine Bacteria 0 /HPF (0-FEW) Urine Hyaline Casts Few /HPF Urine Mucus Slight /LPF Urine Opiates Screen Neg (NEG) Urine Methadone Screen Neg (NEG) Urine Barbiturates Neg (NEG) Urine Phencyclidine Screen Neg (NEG) Urine Amphetamine/Methamphetamine Neg (NEG) Urine Benzodiazepines Screen Neg (NEG) Urine Cocaine Screen Neg (NEG) Urine Cannabinoids Screen Neg (NEG) Urine Ethyl Alcohol Neg (NEG) Laboratory Tests 09/21/20 12:32 Laboratory Tests 09/21/20 12:32 Vital Signs: Vital Signs Date Time Temp Pulse Resp B/P (MAP) Pulse Ox O2 Delivery O2 Flow Rate FiO2 09/21/20 13:05 112 134/90 (105) 100 Room Air 09/21/20 12:11 98.3 26 98.3 EKG: EKG: [] Radiology/Procedures: Radiology/Procedures: [][facility] [address] [place] [address] IMAGING REPORT Signed PATIENT: DANIELA MANUEL MACCOUNT: [id number] : 1965 LOCATION: ER AGE: 55 SEX: F EXAM STATUS: REG ER ORD. PHYSICIAN: ANIA BANSAL DO REASON: ABDOMINAL PAIN, NAUSEA, VOMITING PROCEDURE: CT ABDOMEN PELVIS WO CONTRAST CT scan abdomen and pelvis without contrast 09/21/2020 CLINICAL HISTORY: Abdominal pain with nausea and vomiting. TECHNIQUE: Unenhanced, contiguous, 5 mm axial sections were obtained through the abdomen and pelvis. One or more of the following individualized dose reduction techniques were utilized for this study: 1. Automated exposure control. 2. Adjustment of the mA and/or kV according to patient size. 3. Use of iterative reconstruction technique. FINDINGS: Comparison study is dated 08/24/2020. Images through the lung bases demonstrate minimal dependent subsegmental atelectasis bilaterally. The liver, spleen, pancreas, adrenal glands and kidneys are within normal limits. Atherosclerotic calcification of the abdominal aorta is seen. The abdominal aorta tapers normally. The gallbladder is distended. Dependent increased attenuation material is seen within the gallbladder which may reflect sludge. Air and stool are seen throughout the colon. There is no evidence of bowel obstruction. Images through the pelvis demonstrate the urinary bladder to be contracted. No adnexal mass is seen. Calcifications are seen within the pelvis consistent with phleboliths. No free fluid is noted. Minimal S-shaped curvature of the thoracolumbar spine is seen. Degenerative changes are seen involving the mid and lower lumbar spine along with both hips. IMPRESSION: 1. Probable gallbladder sludge. 2. No acute abnormality is seen. Electronically signed by: Shilo Bates MD (09/21/2020 2:20 PM) [id number] DICTATED and SIGNED BY: SHILO BATES MD DATE: 09/21/20 [id number] 0 Course & Med Decision Making: Course & Med Decision Making Pertinent Labs and Imaging studies reviewed. (See chart for details) Patient is a 55-year-old female who presented to ER for evaluation of nausea vomiting abdominal pain. Patient has history of cyclic vomiting syndrome and gastric ulcer disease. Patient was given IV fluid, IV nausea medication and IV pain medication in the ER, patient feel much better. Her potassium level was low, patient was given 40 mEq potassium in ER. Patient would like to be discharged home. She is scheduled to see her doctor in a couple days. Dragon Disclaimer: Dragon Disclaimer: This electronic medical record was generated, in whole or in part, using a voice recognition dictation system. Departure Departure Impression: Primary Impression: Epigastric abdominal pain Additional Impression: Hypokalemia Disposition: 01 DC HOME SELF CARE/HOMELESS Condition: IMPROVED Referrals: UNKNOWN PCP NAME (PCP) Follow-up with your doctor as scheduled on the sixth of this month. Patient Instructions: Abdominal Pain, Hypokalemia Additional Instructions: Thank you for visiting our Emergency Department. We appreciate you trusting us with your care. If any additional problems come up don't hesitate to return to visit us. Please follow up with your primary care provider so they can plan additional care if needed and know about the problem that you had. If symptoms worsen come back to the Emergency Department. Any concerning symptoms that start such as chest pain, shortness of air, weakness or numbness on one side of the body, running high fevers or any other concerning symptoms return to the ER. Scripts Metoclopramide Hcl (REGLAN) 10 Mg Tablet 10 MG PO QIDACHS PRN for NAUSEA, #30 TAB 0 Refills Prov: ANIA BANSAL DO 09/21/20 Gabapentin (NEURONTIN ) 300 Mg Capsule 300 MG PO BID for NEUROGENIC PAIN for 30 Days, #60 CAP 0 Refills Prov: ANIA BANSAL DO 09/21/20 ANIA BANSAL DO Sep 21, 2020 14:18
--- NOTE | 2020-09-21 14:22 | RAD ---
CT scan abdomen and pelvis without contrast 09/21/2020 CLINICAL HISTORY: Abdominal pain with nausea and vomiting. TECHNIQUE: Unenhanced, contiguous, 5 mm axial sections were obtained through the abdomen and pelvis. One or more of the following individualized dose reduction techniques were utilized for this study: 1. Automated exposure control. 2. Adjustment of the mA and/or kV according to patient size. 3. Use of iterative reconstruction technique. FINDINGS: Comparison study is dated 08/24/2020. Images through the lung bases demonstrate minimal dependent subsegmental atelectasis bilaterally. The liver, spleen, pancreas, adrenal glands and kidneys are within normal limits. Atherosclerotic calcification of the abdominal aorta is seen. The abdominal aorta tapers normally. Th e gallbladder is distended. Dependent increased attenuation material is seen within the gallbladder w hich may reflect sludge. Air and stool are seen throughout the colon. There is no evidence of bowel o bstruction. Images through the pelvis demonstrate the urinary bladder to be contracted. No adnexal mass is seen. Calcifications are seen within the pelvis consistent with phleboliths. No free fluid is noted. Minima l S-shaped curvature of the thoracolumbar spine is seen. Degenerative changes are seen involving the mid and lower lumbar spine along with both hips. IMPRESSION: 1. Probable gallbladder sludge. 2. No acute abnormality is seen. Electronically signed by: Shilo Howard MD (09/21/2020 2:20 PM) [place] [id number]
[2020-09-21] MEDS ORDERED: POTASSIUM CHLORIDE 10 MEQ TABLET.ER. PO ONE (16:15)
[2020-09-21 16:30] VITALS: BP 135/79
[2020-09-21] MEDS ORDERED: METO10TA81 PO (16:43)
[2020-09-21] MEDS ORDERED: GABA300C18 PO (16:43)
== END 2020-09-21 16:53 | disposition home or self-care (01) ==
LOC: ER 11:47
DX: R10.13 Epigastric pain (principal); E87.6 Hypokalemia; R11.2 Nausea with vomiting, unspecified; K21.9 Gastro-esophageal reflux disease without esophagitis; E11.9 Type 2 diabetes mellitus without complications; I10 Essential (primary) hypertension; F17.200 Nicotine dependence, unspecified, uncomplicated; Z87.11 Personal history of peptic ulcer disease; Z88.0 Allergy status to penicillin
CPT/HCPCS: 36415; 74176; 80053; 80307; 81001; 83690; 85025; 96361; 96374; 96375; 99285; J2270; J2765; J7030

== ENCOUNTER → 2020-10-20 | Emergency (ER) | payer SELFPAY ==
[~2020-10-20] MED LIST changes: +METO10TA81 PO; -POLY17PO28 PO; +POLY17PO52 PO; +PROM12.554 RC
== END ==
LOC: ER 15:55
DX: R10.9 Unspecified abdominal pain (principal); R11.2 Nausea with vomiting, unspecified; Z53.21 Procedure and treatment not carried out due to patient leaving prior to being seen by health care provider

== ENCOUNTER 2020-11-13 12:48 | Emergency (ER) | payer SELFPAY ==
[~2020-11-13] VITALS: Ht 170.2 cm; Wt 68.1 kg
[~2020-11-13 12:48] MED LIST changes: -PROM12.554 RC
[2020-11-13] MEDS ORDERED: LABETALOL 20 MG/4 ML DISP.SYRIN. IVP ONE (14:30)
[2020-11-13] MEDS ORDERED: FAMOTIDINE 20 MG/2 ML VIAL IVP ONE (14:30)
[2020-11-13] MEDS ORDERED: ONDANSETRON PF 4 MG/2 ML VIAL. IV ONE (14:30)
[2020-11-13] MEDS ORDERED: IV NORMAL SALINE 1000ML BAG 1,000 ML IV ONE (14:30)
--- NOTE | 2020-11-13 14:48 | ED.ADGEN ---
Past Medical History Past Medical History: Diabetes-Type II, GERD, Hypertension, P.U.D., Other Additional Past Medical Histor: stomach ulcers,CYCLIC VOMITING,SEPSIS,NARCOTIC DEPENDENCE,GASTRITIS Past Surgical History: Other Additional Past Surgical Histo: foot surgery, explor. abd sx Smoking Status: Current Every Day Smoker Alcohol Use: None Drug Use: None General Adult EDM: Chief Complaint: NAUSEA/VOMITING/DIARRHA HPI: HPI: Patient is a 55 year old AA female who presents to the emergency department with complaints of abdominal pain, nausea, vomiting, and diarrhea since 230 this morning. Patient has a history of GERD, cyclic vomiting, gastritis, and stomach ulcers.. She reports that she has vomited at least four times and had more than 10 episodes of diarrhea today. She denies any hematemesis or bloody stools. Patient denies any fever, cough, body aches, chest pain, palpitations, dizziness, syncope, shortness of breath, numbness, tingling, or weakness. Patient reports that she tried taking Zofran but was unable to keep it down. She states she does not have the Zofran that dissolves under her tongue. She currently rates her abdominal pain a 7 out of 10 on the pain scale, she states that the pain is everywhere. She denies any abdominal tenderness. She denies any alleviating or exacerbating factors. Reports that the pain has been constant aching. Review of Systems: Review of Systems: Complete ROS is negative unless otherwise noted in HPI. Current Medications: Current Medications Medications (Trade) Dose Ordered Sig/[facility] Start Time Stop Time Status Last Admin Dose Admin Famotidine (Pepcid Vial) 20 mg 1X ONCE 11/13/20 14:30 11/13/20 14:31 DC 11/13/20 15:03 20 MG Fentanyl Citrate (Fentanyl 2ml Vial) 50 mcg 1X ONCE 11/13/20 15:45 11/13/20 15:46 DC 11/13/20 15:53 50 MCG Labetalol HCl (Normodyne Iv Push) 10 mg 1X ONCE 11/13/20 14:30 11/13/20 14:31 DC 11/13/20 15:04 10 MG Ondansetron HCl (Zofran) 4 mg 1X ONCE 11/13/20 14:30 11/13/20 14:31 DC 11/13/20 15:03 4 MG Sodium Chloride 1,000 ml @ 1,000 mls/hr 1X ONCE 11/13/20 14:30 11/13/20 15:29 DC 11/13/20 15:03 1,000 MLS/HR Allergies: Allergies: Allergies Coded Allergies Type Severity Reaction Last Updated Verified Penicillins Allergy Intermediate HAS TOLERATED AMOXICILLIN 06/04/19 Yes Physical Exam: PE: See Above Constitutional: Well developed, well nourished, no acute distress, appears uncomfortable HENT: Normocephalic, atraumatic, bilateral external ears normal, oropharynx dry, nose normal. [] Eyes: PERRLA, EOMI, conjunctiva normal, no discharge. [] Neck: Normal range of motion, no stridor. [] Cardiovascular:Heart rate regular tachycardic rhythm Lungs & Thorax: Respirations even and unlabored, no retractions, no respiratory distress Abdomen: soft, epigastric/LUQ/LLQ tenderness to palpation, right abdomen is nontender to palpation, no rebound tenderness, no guarding, no masses, no pu lsatile masses. [] Skin: Warm, dry, no erythema, no rash. [] Extremities: No cyanosis, no clubbing, ROM intact, no edema. [] Neurologic: Alert and oriented X 3, normal motor function, normal sensory function, no focal deficits noted. [] Psychologic: Affect normal, judgement normal, mood normal. [] Current Patient Data: Labs: Laboratory Tests Test 11/13/20 14:35 11/13/20 15:25 White Blood Count 13.4 x10^3/uL (4.0-11.0) H Red Blood Count 6.02 x10^6/uL (3.50-5.40) H Hemoglobin 16.2 g/dL (12.0-15.5) H Hematocrit 49.2 % (36.0-47.0) H Mean Corpuscular Volume 82 fL (79-100) Mean Corpuscular Hemoglobin 27 pg (25-35) Mean Corpuscular Hemoglobin Concent 33 g/dL (31-37) Red Cell Distribution Width 18.7 % (11.5-14.5) H Platelet Count 255 x10^3/uL (140-400) Neutrophils (%) (Auto) 80 % (31-73) H Lymphocytes (%) (Auto) 14 % (24-48) L Monocytes (%) (Auto) 6 % (0-9) Eosinophils (%) (Auto) 0 % (0-3) Basophils (%) (Auto) 0 % (0-3) Neutrophils # (Auto) 10.7 x10^3/uL (1.8-7.7) H Lymphocytes # (Auto) 1.9 x10^3/uL (1.0-4.8) Monocytes # (Auto) 0.8 x10^3/uL (0.0-1.1) Eosinophils # (Auto) 0.0 x10^3/uL (0.0-0.7) Basophils # (Auto) 0.1 x10^3/uL (0.0-0.2) Sodium Level 136 mmol/L (136-145) Potassium Level 3.5 mmol/L (3.5-5.1) Chloride Level 97 mmol/L (98-107) L Carbon Dioxide Level 23 mmol/L (21-32) Anion Gap 16 (6-14) H Blood Urea Nitrogen 20 mg/dL (7-20) Creatinine 1.6 mg/dL (0.6-1.0) H Estimated GFR (Cockcroft-Gault) 40.3 BUN/Creatinine Ratio 13 (6-20) Glucose Level 165 mg/dL (70-99) H Calcium Level 10.7 mg/dL (8.5-10.1) H Magnesium Level 2.1 mg/dL (1.8-2.4) Total Bilirubin 1.0 mg/dL (0.2-1.0) Aspartate Amino Transferase (AST) 27 U/L (15-37) Alanine Aminotransferase (ALT) 31 U/L (14-59) Alkaline Phosphatase 93 U/L (46-116) Total Protein 10.4 g/dL (6.4-8.2) H Albumin 5.0 g/dL (3.4-5.0) Albumin/Globulin Ratio 0.9 (1.0-1.7) L Lipase 99 U/L (73-393) Laboratory Tests 11/13/20 14:35 Laboratory Tests 11/13/20 15:25 Vital Signs: Vital Signs Date Time Temp Pulse Resp B/P (MAP) Pulse Ox O2 Delivery O2 Flow Rate FiO2 11/13/20 18:00 98 18 150/91 (110) 100 11/13/20 15:53 Room Air 11/13/20 14:05 97.2 97.2 EKG: EK-sinus tachycardia, rate 118, biatrial enlargement, no STEMI, read by Dr. Mcgowan Heart Score: Risk Factors: Risk Factors: DM, Current or recent (<one month) smoker, HTN, HLP, family history of CAD, obesity. Risk Scores: Score 0 - 3: 2.5% MACE over next 6 weeks - Discharge Home Score 4 - 6: 20.3% MACE over next 6 weeks - Admit for Clinical Observation Score 7 - 10: 72.7% MACE over next 6 weeks - Early Invasive Strategies Radiology/Procedures: Radiology/Procedures: PROCEDURE: CT ABDOMEN PELVIS WO CONTRAST Exam: CT of abdomen and pelvis without contrast INDICATION: Left-sided abdominal pain, nausea vomiting TECHNIQUE: Sequential axial images through the abdomen and pelvis obtained without IV contrast. Sagittal and coronal reformatted images were reconstructed from the axial data and reviewed. Comparisons: 09/21/2020 FINDINGS: Heart size is normal. No pericardial effusion. Visualized lung bases are clear. No pleural effusion. Evaluation of solid organs is limited secondary to noncontrast technique. Liver, spleen, pancreas, gallbladder and adrenals are unremarkable. No perinephric inflammation or hydronephrosis. No renal or ureteral calculi are identified. Bladder is decompressed not well evaluated. Uterus is nonenlarged. No abnormal adnexal mass. Large and small bowel are unremarkable. Appendix is normal. No free intra- abdominal air or fluid. No obstruction. Abdominal aorta has a normal course and caliber. No enlarged intra-abdominal lymph nodes are identified. No suspicious osseous lesions or acute fractures. IMPRESSION: No acute process identified in the abdomen or pelvis. Exposure: One or more of the following in the visualized dose reduction techniques were utilized for this examination: 1. Automated exposure control 2. Adjustment of the MA and/or KV according to patient size 3. Use of iterative of reconstructive technique Electronically signed by: Nasrin Cali MD (11/13/2020 5:01 PM) [facility] [] Course & Med Decision Making: Course & Med Decision Making Pertinent Labs and Imaging studies reviewed. (See chart for details) 55-year-old female presented emergency department with complaints of nausea, vomiting, diarrhea, and abdominal pain. CBC revealed a white blood cell count of 13.4, otherwise unremarkable; CMP revealed a chloride of 97, creatinine of 1.6, glucose 165, calcium of 10.7, otherwise unremarkable. The patient did not give a urine specimen while in the emergency department, she denied any urinary complaints Patient was given 1 L of normal saline in the emergency department, 20 mg of famotidine, 4 mg of Zofran, 10 mg of labetalol, and 50 mcg of fentanyl. Her blood pressure and heart rate reduced to normal limits after medications. The patient reported relief of her pain and nausea. She reported feeling better and stated she would like to go home. A prescription was written for Phenergan suppositories. Advised the patient to use a suppository if she is unable to keep her Zofran down. Encouraged her to follow-up with her primary care doctor the next 1 to 2 days, return to the ER if symptoms worsen or fever develops. Patient verbalized an understanding of home care, medications, follow-up, and r eturn to ED instructions and was in agreement with the plan of care. [] Tila Disclaimer: Dragnilay Disclaimer: This electronic medical record was generated, in whole or in part, using a voice recognition dictation system. Departure Departure Impression: Primary Impression: Nausea and vomiting Additional Impression: Abdominal pain Disposition: 01 DC HOME SELF CARE/HOMELESS Condition: STABLE Referrals: UNKNOWN PCP NAME (PCP) Patient Instructions: Abdominal Pain (Nonspecific), Nausea and Vomiting, [id number] Additional Instructions: Fill prescriptions and use them as directed. Recommend clear fluids for the next 24 hours. Then you may advance to bland foods such as bananas, rice, applesauce, and dry toast. Follow-up with your primary care doctor in the next 1-2 days. Return to the emergency room if your symptoms worsen or if fever develops. Scripts Promethazine Hcl (PROMETHAZINE HCL) 12.5 Mg Supp.rect 12.5 MG RC Q6H PRN for NAUSEA/VOMITING for 5 Days, #20 SUPP.RECT 0 Refills Prov: STEVEHeatherMATTHEW CANVAS WORKER 11/13/20 Problem Qualifiers Primary Impression: Nausea and vomiting Vomiting type: unspecified Vomiting Intractability: non-intractable Qualified Codes: R11.2 - Nausea with vomiting, unspecified Additional Impression: Abdominal pain Abdominal location: left lower quadrant Qualified Codes: R10.32 - Left lower quadrant pain MATTHEW RENTERIA APRN Nov 13, 2020 14:48
[2020-11-13 15:02] LABS: BASO # 0.1 x10^3/uL (0.0-0.2); BASO % 0 % (0-3); EOS % 0 % (0-3); HEMATOCRIT 49.2 % (36.0-47.0); HEMOGLOBIN 16.2 g/dL (12.0-15.5); LYMPH # 1.9 x10^3/uL (1.0-4.8); LYMPH % 14 % (24-48); MEAN CORPUSCULAR HEMOGLOBIN 27 pg (25-35); MEAN CORPUSCULAR HGB CONC 33 g/dL (31-37); MEAN CORPUSCULAR VOLUME 82 fL (79-100); MONO # 0.8 x10^3/uL (0.0-1.1); MONO % 6 % (0-9); NEUT # 10.7 x10^3/uL (1.8-7.7); NEUT % 80 % (31-73); PLATELET COUNT 255 x10^3/uL (140-400); RED BLOOD COUNT 6.02 x10^6/uL (3.50-5.40); RED CELL DISTRIBUTION WIDTH 18.7 % (11.5-14.5); WHITE BLOOD COUNT 13.4 x10^3/uL (4.0-11.0)
[2020-11-13] MEDS ORDERED: fentaNYL PF VIAL 100 MCG/2 ML VIAL IVP ONE (15:45)
[2020-11-13 15:51] LABS: ALBUMIN/GLOBULIN RATIO 0.9 (1.0-1.7); CALCIUM 10.7 mg/dL (8.5-10.1); CREATININE 1.6 mg/dL (0.6-1.0); GFR 40.3; MAGNESIUM 2.1 mg/dL (1.8-2.4); POTASSIUM 3.5 mmol/L (3.5-5.1); TOTAL PROTEIN 10.4 g/dL (6.4-8.2)
--- NOTE | 2020-11-13 16:41 | EKG ---
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
--- NOTE | 2020-11-13 17:04 | RAD ---
Exam: CT of abdomen and pelvis without contrast INDICATION: Left-sided abdominal pain, nausea vomiting TECHNIQUE: Sequential axial images through the abdomen and pelvis obtained without IV contrast. Sagit teresa and coronal reformatted images were reconstructed from the axial data and reviewed. Comparisons: 09/21/2020 FINDINGS: Heart size is normal. No pericardial effusion. Visualized lung bases are clear. No pleural effusion. Evaluation of solid organs is limited secondary to noncontrast technique. Liver, spleen, pancreas, gallbladder and adrenals are unremarkable. No perinephric inflammation or hydronephrosis. No renal or ureteral calculi are identified. Bladder is decompressed not well evaluated. Uterus is nonenlarged. No abnormal adnexal mass. Large and small bowel are unremarkable. Appendix is normal. No free intra-abdominal air or fluid. No obstruction. Abdominal aorta has a normal course and caliber. No enlarged intra-abdominal lymph nodes are identified. No suspicious osseous lesions or acute fractures. IMPRESSION: No acute process identified in the abdomen or pelvis. Exposure: One or more of the following in the visualized dose reduction techniques were utilized for this examination: 1. Automated exposure control 2. Adjustment of the MA and/or KV according to patient size 3. Use of iterative of reconstructive technique Electronically signed by: Nasrin Cali MD (11/13/2020 5:01 PM) [facility]
[2020-11-13] MEDS ORDERED: PROM12.554 RC (17:54)
[2020-11-13 18:00] VITALS: BP 150/91
[2020-12-22] MEDS ORDERED: OMEP40CA7 PO (21:36)
== END 2020-11-13 18:00 | disposition home or self-care (01) ==
LOC: ER 12:48
DX: R11.2 Nausea with vomiting, unspecified (principal); R10.13 Epigastric pain; R19.7 Diarrhea, unspecified; E11.9 Type 2 diabetes mellitus without complications; K21.9 Gastro-esophageal reflux disease without esophagitis; I10 Essential (primary) hypertension; F17.200 Nicotine dependence, unspecified, uncomplicated; Z88.0 Allergy status to penicillin
CPT/HCPCS: 36415; 74176; 80053; 83690; 83735; 85025; 93005; 96361; 96374; 96375; 99285; J2405; J3010; J3490; J7030

== ENCOUNTER 2020-12-08 21:02 | Emergency (ER) | payer SELFPAY ==
[~2020-12-08] VITALS: Ht 170.2 cm; Wt 59.1 kg
[~2020-12-08 21:02] MED LIST changes: +PROM12.554 RC
[2020-12-08] MEDS ORDERED: ONDANSETRON PF 4 MG/2 ML VIAL. IV ONE (21:30)
[2020-12-08] MEDS ORDERED: LABETALOL 20 MG/4 ML DISP.SYRIN. IVP ONE (21:30)
[2020-12-08] MEDS ORDERED: IV NORMAL SALINE 1000ML BAG 1,000 ML IV ONE (21:30)
[2020-12-08] MEDS ORDERED: fentaNYL PF VIAL 100 MCG/2 ML VIAL IV ONE (21:30)
[2020-12-08] MEDS ORDERED: FAMOTIDINE 20 MG/2 ML VIAL IVP ONE (21:30)
--- NOTE | 2020-12-08 22:00 | ED.ADGEN ---
Past Medical History Past Medical History: Diabetes-Type II, GERD, Hypertension, P.U.D., Other Additional Past Medical Histor: stomach ulcers,CYCLIC VOMITING,SEPSIS,NARCOTIC DEPENDENCE,GASTRITIS Past Surgical History: Other Additional Past Surgical Histo: foot surgery, explor. abd sx Smoking Status: Current Every Day Smoker Alcohol Use: None Drug Use: None Social History Narrative: DENIES General Adult EDM: Chief Complaint: ABDOMINAL PAIN HPI: HPI: Patient is a 55 year old AA female who presents to the emergency department [facility] complaints of upper abdominal pain, nausea, and vomiting. Patient reports that she has vomited at least 10 times. She denies any marijuana, illicit drug, stoll alcohol use. Patient reports trying to take a GI cocktail at home without any relief in her symptoms. Patient reports that she has been taking her medications for her chronic abdominal pain as scribed by her primary care doctor. She denies any fever, cough, shortness of breath, chest pain palpitations, lower abdominal pain, dysuria, hematuria, or headache. Patient states that this is similar to her previous abdominal pain that she was seen here 1 month ago for. She currently rates her pain a 10 out of 10 on the pain scale, she denies any alleviating factors. Review of Systems: Review of Systems: Complete ROS is negative unless otherwise noted in HPI. Current Medications: Current Medications Medications (Trade) Dose Ordered Sig/Emile Start Time Stop Time Status Last Admin Dose Admin Famotidine (Pepcid Vial) 20 mg 1X ONCE 12/08/20 21:30 12/08/20 21:32 DC 12/08/20 21:53 20 MG Fentanyl Citrate (Fentanyl 2ml Vial) 50 mcg 1X ONCE 12/08/20 21:30 12/08/20 21:31 DC 12/08/20 21:53 50 MCG Labetalol HCl (Normodyne Iv Push) 10 mg 1X ONCE 12/08/20 21:30 12/08/20 21:32 DC 12/08/20 21:54 10 MG Ondansetron HCl (Zofran) 4 mg 1X ONCE 12/08/20 21:30 12/08/20 21:31 DC 12/08/20 21:53 4 MG Potassium Chloride (Klor-Con) 40 meq 1X ONCE 12/08/20 23:00 12/08/20 23:01 DC Sodium Chloride 1,000 ml @ 1,000 mls/hr 1X ONCE 12/08/20 21:30 12/08/20 22:29 DC 12/08/20 21:51 1,000 MLS/HR Allergies: Allergies: Allergies Coded Allergies Type Severity Reaction Last Updated Verified Penicillins Allergy Intermediate HAS TOLERATED AMOXICILLIN 06/04/19 Yes Physical Exam: PE: See Above Constitutional: Well developed, well nourished, moderate distress, non-toxic appearance. [] HENT: Normocephalic, atraumatic, bilateral external ears normal, nose normal. [] Eyes: PERRLA, EOMI, conjunctiva normal, no discharge. [] Neck: Normal range of motion, no stridor. [] Cardiovascular:Heart rate regular tachycardic rhythm Lungs & Thorax: Respirations even and unlabored, no retractions, no respiratory distress Abdomen: soft, epigastric tenderness to palpation otherwise soft and nontender. No palpable masses Skin: Warm, dry, no erythema, no rash. [] Extremities: No cyanosis, ROM intact, no edema. [] Neurologic: Alert and oriented X 3, no focal deficits noted. [] Psychologic: Affect anxious, judgement impulsive, mood normal. [] Constitutional: Well developed, well nourished, no acute distress, non-toxic appearance HENT: Normocephalic, atraumatic Eyes: Conjunctiva normal, no discharge Neck: Normal range of motion, supple Lungs & Thorax: No respiratory distress, equal chest rise and fall Abdomen: Soft, no tenderness, no guarding/rebound tenderness/distention Skin: Warm, dry, no erythema, no rash Back: No tenderness, no CVA tenderness Extremities: No tenderness, ROM intact, no edema Neurologic: Alert and oriented X 3, no focal deficits noted Psychologic: Affect normal, judgment normal Current Patient Data: Labs: Laboratory Tests Test 12/08/20 21:00 12/08/20 21:59 12/08/20 22:20 Urine Collection Type Void Urine Color Yellow Urine Clarity Clear Urine pH 8.5 (<5.0-8.0) Urine Specific [place] 1.020 (1.000-1.030) Urine Protein >=300 mg/dL (NEG-TRACE) Urine Glucose (UA) 100 mg/dL (NEG) Urine Ketones (Stick) Negative mg/dL (NEG) Urine Blood Moderate (NEG) Urine Nitrite Negative (NEG) Urine Bilirubin Negative (NEG) Urine Urobilinogen Dipstick 0.2 mg/dL (0.2 mg/dL) Urine Leukocyte Esterase Negative (NEG) Urine RBC 20-40 /HPF (0-2) Urine WBC 11-20 /HPF (0-4) Urine Squamous Epithelial Cells Occ /LPF Urine Bacteria Few /HPF (0-FEW) White Blood Count 8.9 x10^3/uL (4.0-11.0) Red Blood Count 5.47 x10^6/uL (3.50-5.40) H Hemoglobin 14.3 g/dL (12.0-15.5) Hematocrit 44.1 % (36.0-47.0) Mean Corpuscular Volume 81 fL (79-100) Mean Corpuscular Hemoglobin 26 pg (25-35) Mean Corpuscular Hemoglobin Concent 33 g/dL (31-37) Red Cell Distribution Width 17.8 % (11.5-14.5) H Platelet Count 161 x10^3/uL (140-400) Neutrophils (%) (Auto) 76 % (31-73) H Lymphocytes (%) (Auto) 13 % (24-48) L Monocytes (%) (Auto) 11 % (0-9) H Eosinophils (%) (Auto) 0 % (0-3) Basophils (%) (Auto) 1 % (0-3) Neutrophils # (Auto) 6.7 x10^3/uL (1.8-7.7) Lymphocytes # (Auto) 1.1 x10^3/uL (1.0-4.8) Monocytes # (Auto) 1.0 x10^3/uL (0.0-1.1) Eosinophils # (Auto) 0.0 x10^3/uL (0.0-0.7) Basophils # (Auto) 0.0 x10^3/uL (0.0-0.2) Sodium Level 139 mmol/L (136-145) Potassium Level 2.7 mmol/L (3.5-5.1) *L Chloride Level 99 mmol/L (98-107) Carbon Dioxide Level 24 mmol/L (21-32) Anion Gap 16 (6-14) H Blood Urea Nitrogen 17 mg/dL (7-20) Creatinine 1.7 mg/dL (0.6-1.0) H Estimated GFR (Cockcroft-Gault) 37.6 BUN/Creatinine Ratio 10 (6-20) Glucose Level 149 mg/dL (70-99) H Calcium Level 9.5 mg/dL (8.5-10.1) Magnesium Level 2.0 mg/dL (1.8-2.4) Total Bilirubin 0.7 mg/dL (0.2-1.0) Aspartate Amino Transferase (AST) 21 U/L (15-37) Alanine Aminotransferase (ALT) 24 U/L (14-59) Alkaline Phosphatase 91 U/L (46-116) Creatine Kinase 242 U/L (26-192) H Creatine Kinase MB (Mass) 1.2 ng/mL (0.0-3.6) Creatine Kinase MB Relative Index 0.5 % (0-4) Troponin I Quantitative 0.045 ng/mL (0.000-0.055) Total Protein 8.9 g/dL (6.4-8.2) H Albumin 3.8 g/dL (3.4-5.0) Albumin/Globulin Ratio 0.7 (1.0-1.7) L Lipase 96 U/L (73-393) Laboratory Tests 12/08/20 21:59 Laboratory Tests 12/08/20 22:20 Vital Signs: Vital Signs Date Time Temp Pulse Resp B/P (MAP) Pulse Ox O2 Delivery O2 Flow Rate FiO2 12/08/20 22:00 80 16 162/109 (126) 100 Room Air 12/08/20 21:07 97.7 97.7 EKG: EK-sinus rhythm rate 76, biatrial enlargement, no STEMI, unchanged when compared to previous EKG done on September 18[address] House [] Heart Score: C/O Chest Pain: No Radiology/Procedures: Radiology/Procedures: [] Course & Med Decision Making: Course & Med Decision Making Pertinent Lab studies reviewed. (See chart for details) 2237- Report to Dr. House who will follow up on CMP, and TSH. Advised of medications given and physical exam findings. No imaging as pt is non tender except over the epigastrum and recently had a negative CT abd at the end of October. Signout received from Joni CHEF INSTRUCTOR for patient with concern for cyclic vomiting syndrome awaiting some laboratory data. Patient seen and evaluated by myself. Symptomatic treatment provided with interval improvement. IVF hydration provided. Labs reviewed. Hypokalemia addressed. Patient stable for discharge with outpatient follow-up with PCP/GI. GI referral provided. Discussed findings and plan with patient, who acknowledges understanding and agreement. Tila Disclaimer: Tila Disclaimer: This electronic medical record was generated, in whole or in part, using a voice recognition dictation system. Departure Departure Impression: Primary Impression: Nausea and vomiting Additional Impression: Hypokalemia Disposition: DC HOME SELF CARE/HOMELESS Condition: STABLE Referrals: NO PCP (PCP) MATHIEU GARCIA MD Patient Instructions: Clear Liquid Diet, [id number], Cyclic Vomiting Syndrome, Hypokalemia, Potassium Content of Foods Scripts Promethazine HCl (Promethazine HCl) 50 Mg Supp.rect 50 MG RC Q12HR PRN for NAUSEA, #14 SUPP.RECT Prov: KATIE HOUSE DO 12/08/20 Famotidine (PEPCID) 20 Mg Tablet 20 MG PO BID, #10 TAB Prov: KATIE HOUSE DO 12/08/20 Hyoscyamine Sulfate (LEVSIN-SL) 0.125 Mg Tab.subl 0.125 MG SL Q4-6HRS PRN for PAIN, #14 TAB Prov: KATIE HOUSE DO 12/08/20 Attending Signature Attending Signature I have personally interviewed and examined the patient. All charts, labs, and imaging studies were reviewed. I agree with the PA/CHEF INSTRUCTOR's findings, exam, and plan. Problem Qualifiers Primary Impression: Nausea and vomiting Vomiting type: unspecified Vomiting Intractability: intractable Qualified Codes: R11.2 - Nausea with vomiting, unspecified MATTHEW RENTERIA APRN Dec 08, 2020 22:00 KATIE HOUSE DO Dec 08, 2020 23:14
[2020-12-08 22:15] LABS: CLARITY,URINE CLEAR; COLOR,URINE YELLOW
[2020-12-08 22:16] LABS: BILIRUBIN,URINE NEGATIVE (NEG); NITRITE,URINE NEGATIVE (NEG); PH,URINE 8.5 (<5.0-8.0); PROTEIN,URINE >=300 mg/dL (NEG-TRACE); UROBILINOGEN,URINE 0.2 mg/dL (0.2 mg/dL)
[2020-12-08 22:18] LABS: BACTERIA,URINE FEW /HPF (0-FEW); RBC,URINE 20-40 /HPF (0-2)
[2020-12-08 22:30] LABS: BASO % 1 % (0-3); EOS % 0 % (0-3); HEMATOCRIT 44.1 % (36.0-47.0); HEMOGLOBIN 14.3 g/dL (12.0-15.5); LYMPH # 1.1 x10^3/uL (1.0-4.8); LYMPH % 13 % (24-48); MEAN CORPUSCULAR HEMOGLOBIN 26 pg (25-35); MEAN CORPUSCULAR HGB CONC 33 g/dL (31-37); MEAN CORPUSCULAR VOLUME 81 fL (79-100); MONO % 11 % (0-9); NEUT # 6.7 x10^3/uL (1.8-7.7); NEUT % 76 % (31-73); PLATELET COUNT 161 x10^3/uL (140-400); RED BLOOD COUNT 5.47 x10^6/uL (3.50-5.40); RED CELL DISTRIBUTION WIDTH 17.8 % (11.5-14.5); WHITE BLOOD COUNT 8.9 x10^3/uL (4.0-11.0)
[2020-12-08 22:45] LABS: ALBUMIN 3.8 g/dL (3.4-5.0); ALBUMIN/GLOBULIN RATIO 0.7 (1.0-1.7); CALCIUM 9.5 mg/dL (8.5-10.1); CREATININE 1.7 mg/dL (0.6-1.0); GFR 37.6; TOTAL BILIRUBIN 0.7 mg/dL (0.2-1.0); TOTAL PROTEIN 8.9 g/dL (6.4-8.2)
[2020-12-08 22:50] LABS: POTASSIUM 2.7 mmol/L (3.5-5.1)
[2020-12-08 23:00] VITALS: BP 132/94
[2020-12-08] MEDS ORDERED: POTASSIUM CHLORIDE 10 MEQ TABLET.ER. PO ONE (23:00)
[2020-12-08] MEDS ORDERED: PROM50SU7 RC (23:10)
[2020-12-08] MEDS ORDERED: HYOS0.1265 SL (23:10)
[2020-12-08] MEDS ORDERED: FAMO-63 PO (23:10)
--- NOTE | 2020-12-08 23:18 | EKG ---
[facility] [address] [place] [address] Test Date: 2020-12-08 Test Time: 22:09:10 Pat Name: DANIELA MANUEL Department: Room: Gender: F [employer] Classification Counselor: : 1965 Requested By: MATTHEW RENTERIA Order Number: [id number] Reading MD: Chato Donnelly MD Measurements Intervals [place] Rate: 76 P: 65 DC: 152 QRS: 56 QRSD: 94 T: 59 QT: 398 QTc: 452 Interpretive Statements SINUS RHYTHM NON-SPECIFIC ST/T CHANGES Electronically Signed On 12-09-2020 9:31:07 CDT by Chato Donnelly MD
[2020-12-08] MEDS ORDERED: HYDROcodone/APAP 5/325MG 1 TAB TABLET ONE (23:23)
[2020-12-08] MEDS ORDERED: HYDROcodone/APAP 5/325MG 1 TAB TABLET PO ONE ×2 (23:30)
== END 2020-12-08 23:30 | disposition home or self-care (01) ==
LOC: ER 21:02
DX: R11.2 Nausea with vomiting, unspecified (principal); R10.13 Epigastric pain; E87.6 Hypokalemia; E11.9 Type 2 diabetes mellitus without complications; K21.9 Gastro-esophageal reflux disease without esophagitis; I10 Essential (primary) hypertension; F17.200 Nicotine dependence, unspecified, uncomplicated; Z98.890 Other specified postprocedural states; Z88.0 Allergy status to penicillin
CPT/HCPCS: 36415; 80053; 81001; 82553; 83690; 83735; 84443; 84484; 85025; 87086; 93005; 96361; 96374; 96375; 99284; J2405; J3010; J3490; J7030

== ENCOUNTER 2020-12-10 13:33 | Emergency (ER) | payer SELFPAY ==
[~2020-12-10] VITALS: Ht 170.2 cm; Wt 59.0 kg
[~2020-12-10 13:33] MED LIST changes: +FAMO-63 PO; +HYOS0.1265 SL
[2020-12-10] MEDS ORDERED: HALOPERIDOL LACTATE 5 MG/ML VIAL. IM ONE (14:15)
[2020-12-10] MEDS ORDERED: ONDANSETRON ODT 4 MG TAB.RAPDIS. PO ONE (14:15)
[2020-12-10] MEDS ORDERED: LIDO:MAALOX 1:1 20 ML SINGLE DOSE. SWSW ONE (14:15)
[2020-12-10 14:56] LABS: BASO # 0.1 x10^3/uL (0.0-0.2); BASO % 1 % (0-3); EOS % 0 % (0-3); HEMATOCRIT 44.2 % (36.0-47.0); HEMOGLOBIN 14.2 g/dL (12.0-15.5); LYMPH # 1.9 x10^3/uL (1.0-4.8); LYMPH % 25 % (24-48); MEAN CORPUSCULAR HEMOGLOBIN 26 pg (25-35); MEAN CORPUSCULAR HGB CONC 32 g/dL (31-37); MEAN CORPUSCULAR VOLUME 82 fL (79-100); MONO # 0.8 x10^3/uL (0.0-1.1); MONO % 11 % (0-9); NEUT # 4.6 x10^3/uL (1.8-7.7); NEUT % 63 % (31-73); PLATELET COUNT 142 x10^3/uL (140-400); RED BLOOD COUNT 5.42 x10^6/uL (3.50-5.40); RED CELL DISTRIBUTION WIDTH 18.1 % (11.5-14.5); WHITE BLOOD COUNT 7.4 x10^3/uL (4.0-11.0)
[2020-12-10] MEDS ORDERED: IV NORMAL SALINE 1000ML BAG 1,000 ML IV ONE (15:00)
[2020-12-10 15:11] LABS: CALCIUM 9.4 mg/dL (8.5-10.1); CREATININE 2.3 mg/dL (0.6-1.0); GFR 26.5; POTASSIUM 3.6 mmol/L (3.5-5.1)
[2020-12-10 15:18] LABS: ALBUMIN 3.9 g/dL (3.4-5.0); ALBUMIN/GLOBULIN RATIO 0.8 (1.0-1.7); TOTAL BILIRUBIN 0.4 mg/dL (0.2-1.0); TOTAL PROTEIN 8.9 g/dL (6.4-8.2)
--- NOTE | 2020-12-10 18:14 | PHYS DOC ---
Past Medical History Past Medical History: Diabetes-Type II, GERD, Hypertension, P.U.D., Other Additional Past Medical Histor: stomach ulcers,CYCLIC VOMITING,SEPSIS,NARCOTIC DEPENDENCE,GASTRITIS Past Surgical History: Other Additional Past Surgical Histo: foot surgery, explor. abd sx Smoking Status: Current Every Day Smoker Alcohol Use: None Drug Use: None General Adult EDM: Chief Complaint: ABDOMINAL PAIN HPI: HPI: Patient is a 55 year old female with history of diabetes type 2, hypertension, peptic ulcer disease, who presents to the ED today complaining of 10 out of 10 generalized abdominal pain chronic in nature with nausea and vomiting, patient was seen in the ED yesterday for similar complaints. On arrival in her room patient removes a heating pad, placed a heating pad in the electrical outlet and lays on it. She states she was pain medicine. I tried asking patient what change between yesterday and today that is concerning to return to the ED. She states she still has the pain from yesterday. I was talking to her she jumped off the bed started coming towards me saying "lady you need to give me pain medicine now" I walked out of the room and she was still following me in the hallway saying she needs her pain medicine also would like to talk to supervisor photostat. She was loud walking very fast around the hallways while I went the opposite direction to protect myself. Kody hendrix was called. Review of Systems: Review of Systems: Constitutional: Denies fever or chills. [] Eyes: Denies change in visual acuity. [] HENT: Denies nasal congestion or sore throat. [] Respiratory: Denies cough or shortness of breath. [] Cardiovascular: Denies chest pain or edema. [] GI: Reports abdominal pain chronic, reports chronic nausea, vomiting, denies bloody stools or diarrhea. [] : Denies dysuria. [] Musculoskeletal: Denies back pain or joint pain. [] Integument: Denies rash. [] Neurologic: Denies headache, focal weakness or sensory changes. [] Psychiatric: Denies depression or anxiety. [] Heart Score: C/O Chest Pain: No Risk Factors: Risk Factors: DM, Current or recent (<one month) smoker, HTN, HLP, family history of CAD, obesity. Risk Scores: Score 0 - 3: 2.5% MACE over next 6 weeks - Discharge Home Score 4 - 6: 20.3% MACE over next 6 weeks - Admit for Clinical Observation Score 7 - 10: 72.7% MACE over next 6 weeks - Early Invasive Strategies Current Medications: Current Medications Medications (Trade) Dose Ordered Sig/[facility] Start Time Stop Time Status Last Admin Dose Admin Haloperidol Lactate (Haldol Inj) 5 mg 1X ONCE 12/10/20 14:15 12/10/20 14:16 DC 12/10/20 14:22 5 MG Multi-Ingredient Mouthwash/Gargle (Gi Cocktail) 20 ml 1X ONCE 12/10/20 14:15 12/10/20 14:16 DC 12/10/20 14:21 20 ML Ondansetron HCl (Zofran Odt) 4 mg 1X ONCE 12/10/20 14:15 12/10/20 14:16 DC 12/10/20 14:22 4 MG Sodium Chloride 1,000 ml @ 1,000 mls/hr 1X ONCE 12/10/20 15:00 12/10/20 15:59 DC 12/10/20 16:10 1,000 MLS/HR Allergies: Allergies: Allergies Coded Allergies Type Severity Reaction Last Updated Verified Penicillins Allergy Intermediate HAS TOLERATED AMOXICILLIN 06/04/19 Yes Physical Exam: PE: Constitutional: Well developed, well nourished, no acute distress, non-toxic appearance. [] HENT: Normocephalic, atraumatic, bilateral external ears normal, oropharynx moist, no oral exudates, nose normal. [] Eyes: PERRLA, EOMI, conjunctiva normal, no discharge. [] Neck: Normal range of motion, no tenderness, supple, no stridor. [] Cardiovascular:Heart rate regular rhythm, no murmur [] Lungs & Thorax: Bilateral breath sounds clear to auscultation [] Abdomen: Old healed surgical incision noted midline abdomen. Bowel sounds normal, soft, diffuse tenderness throughout the abdomen, no masses, no pulsatile masses. [] Skin: Warm, dry, no erythema, no rash. [] Back: No tenderness, no CVA tenderness. [] Extremities: No tenderness, no cyanosis, no clubbing, ROM intact, no edema. [] Neurologic: Alert and oriented X 3, normal motor function, normal sensory function, no focal deficits noted. [] Psychologic: Flat affect, loud, Current Patient Data: Labs: Laboratory Tests Test 12/10/20 14:45 White Blood Count 7.4 x10^3/uL (4.0-11.0) Red Blood Count 5.42 x10^6/uL (3.50-5.40) H Hemoglobin 14.2 g/dL (12.0-15.5) Hematocrit 44.2 % (36.0-47.0) Mean Corpuscular Volume 82 fL (79-100) Mean Corpuscular Hemoglobin 26 pg (25-35) Mean Corpuscular Hemoglobin Concent 32 g/dL (31-37) Red Cell Distribution Width 18.1 % (11.5-14.5) H Platelet Count 142 x10^3/uL (140-400) Neutrophils (%) (Auto) 63 % (31-73) Lymphocytes (%) (Auto) 25 % (24-48) Monocytes (%) (Auto) 11 % (0-9) H Eosinophils (%) (Auto) 0 % (0-3) Basophils (%) (Auto) 1 % (0-3) Neutrophils # (Auto) 4.6 x10^3/uL (1.8-7.7) Lymphocytes # (Auto) 1.9 x10^3/uL (1.0-4.8) Monocytes # (Auto) 0.8 x10^3/uL (0.0-1.1) Eosinophils # (Auto) 0.0 x10^3/uL (0.0-0.7) Basophils # (Auto) 0.1 x10^3/uL (0.0-0.2) Sodium Level 135 mmol/L (136-145) L Potassium Level 3.6 mmol/L (3.5-5.1) Chloride Level 95 mmol/L (98-107) L Carbon Dioxide Level 25 mmol/L (21-32) Anion Gap 15 (6-14) H Blood Urea Nitrogen 33 mg/dL (7-20) H Creatinine 2.3 mg/dL (0.6-1.0) H Estimated GFR (Cockcroft-Gault) 26.5 BUN/Creatinine Ratio 14 (6-20) Glucose Level 118 mg/dL (70-99) H Calcium Level 9.4 mg/dL (8.5-10.1) Total Bilirubin 0.4 mg/dL (0.2-1.0) Aspartate Amino Transferase (AST) 36 U/L (15-37) Alanine Aminotransferase (ALT) 31 U/L (14-59) Alkaline Phosphatase 79 U/L (46-116) Total Protein 8.9 g/dL (6.4-8.2) H Albumin 3.9 g/dL (3.4-5.0) Albumin/Globulin Ratio 0.8 (1.0-1.7) L Lipase 89 U/L (73-393) Ethyl Alcohol Level < 10 mg/dL (0-10) Laboratory Tests 12/10/20 14:45 Laboratory Tests 12/10/20 14:45 Vital Signs: Vital Signs Date Time Temp Pulse Resp B/P (MAP) Pulse Ox O2 Delivery O2 Flow Rate FiO2 12/10/20 14:11 98.6 96 18 140/105 (117) 98 Room Air 98.6 EKG: EKG: [] Radiology/Procedures: Radiology/Procedures: [] Course & Med Decision Making: Course & Med Decision Making Pertinent Labs and Imaging studies reviewed. (See chart for details) This is a 55-year-old female patient presented to the ED today complaining of generalized abdominal pain chronic in nature as well as chronic nausea and vomiting. Patient was seen in the ED yesterday for the same complaint and has been in the ED multiple times. Today she is in the ED with the mother who is also being evaluated. Patient was very aggressive on arrival to the ED. CBC with no acute findings, CMP with creatinine of 2.3, BUN of 33. Patient has history of chronic kidney disease. We did give her a liter of fluid in the ED. Heather lopez asked her to give us urine which she has refused. Her niece is in the ED, she reports patient has been using street drugs including K2. Patient was discharged to home. She follows up with a GI doctor at [place]. Encourage her to follow-up Tila Disclaimer: Tila Disclaimer: This electronic medical record was generated, in whole or in part, using a voice recognition dictation system. Departure Departure Impression: Primary Impression: Nausea & vomiting Qualified Codes: R11.2 - Nausea with vomiting, unspecified Additional Impression: Chronic abdominal pain Disposition: 01 DC HOME SELF CARE/HOMELESS Condition: STABLE Referrals: NO PCP (PCP) MATHIEU GARCIA MD follow up with your GI doctor at [place] Patient Instructions: Abdominal Pain (Nonspecific), Nausea and Vomiting, [id number] Additional Instructions: You were evaluated in the emergency room for chronic abdominal pain with nausea, vomiting. Please follow-up with [place] GI doctor. Scripts Sucralfate (SUCRALFATE) 1 Gm Tablet 1 TAB PO TID, #90 TAB 11 Refills Prov: GAIL GUSMAN APRN 12/10/20 Ondansetron (ONDANSETRON ODT) 4 Mg Tab.rapdis 1 TAB PO PRN Q6-8HRS, #16 TAB Prov: GAIL GUSMAN APRN 12/10/20 GAIL GUMSAN APRN Dec 10, 2020 18:14
[2020-12-10] MEDS ORDERED: ONDA4TAB12 PO (18:23)
[2020-12-10] MEDS ORDERED: SUCR1TAB PO (18:23)
[2020-12-10 19:45] VITALS: BP 112/82
== END 2020-12-10 19:46 | disposition home or self-care (01) ==
LOC: ER 13:33
DX: R11.2 Nausea with vomiting, unspecified (principal); R10.84 Generalized abdominal pain; G89.29 Other chronic pain; E11.9 Type 2 diabetes mellitus without complications; K21.9 Gastro-esophageal reflux disease without esophagitis; I10 Essential (primary) hypertension; F17.200 Nicotine dependence, unspecified, uncomplicated; Z88.0 Allergy status to penicillin
CPT/HCPCS: 36415; 80053; 83690; 85025; 96360; 96372; 99285; G0480; J1630; J7030

== ENCOUNTER 2020-12-13 12:05 | Observation (INO) | payer SELFPAY ==
[~2020-12-13] VITALS: Ht 170.2 cm; Wt 56.6 kg
[2020-12-13 12:31] LABS: BILIRUBIN,URINE NEGATIVE (NEG); CLARITY,URINE CLEAR; COLOR,URINE YELLOW; NITRITE,URINE NEGATIVE (NEG); PH,URINE 7.5 (<5.0-8.0); PROTEIN,URINE 30 mg/dL (NEG-TRACE); UROBILINOGEN,URINE 0.2 mg/dL (0.2 mg/dL)
[2020-12-13 12:40] LABS: BACTERIA,URINE 0 /HPF (0-FEW); RBC,URINE 0 /HPF (0-2); WBC,URINE 0 /HPF (0-4)
[2020-12-13] MEDS ORDERED: LABETALOL 20 MG/4 ML DISP.SYRIN. IVP ONE (12:45)
[2020-12-13] MEDS ORDERED: ONDANSETRON PF 4 MG/2 ML VIAL. IV ONE (12:45)
[2020-12-13] MEDS ORDERED: IV NORMAL SALINE 1000ML BAG 1,000 ML IV ONE (12:45)
[2020-12-13] MEDS ORDERED: fentaNYL PF VIAL 100 MCG/2 ML VIAL IV ONE (12:45)
[2020-12-13 13:36] LABS: BASO # 0.1 x10^3/uL (0.0-0.2); BASO % 1 % (0-3); EOS % 0 % (0-3); HEMATOCRIT 43.4 % (36.0-47.0); HEMOGLOBIN 14.4 g/dL (12.0-15.5); LYMPH # 1.2 x10^3/uL (1.0-4.8); LYMPH % 13 % (24-48); MEAN CORPUSCULAR HEMOGLOBIN 27 pg (25-35); MEAN CORPUSCULAR HGB CONC 33 g/dL (31-37); MEAN CORPUSCULAR VOLUME 81 fL (79-100); MONO # 0.7 x10^3/uL (0.0-1.1); MONO % 8 % (0-9); NEUT # 7.3 x10^3/uL (1.8-7.7); NEUT % 78 % (31-73); PLATELET COUNT 170 x10^3/uL (140-400); RED BLOOD COUNT 5.37 x10^6/uL (3.50-5.40); RED CELL DISTRIBUTION WIDTH 17.5 % (11.5-14.5); WHITE BLOOD COUNT 9.3 x10^3/uL (4.0-11.0)
[2020-12-13 13:40] LABS: ALBUMIN 4.3 g/dL (3.4-5.0); ALBUMIN/GLOBULIN RATIO 0.8 (1.0-1.7); CALCIUM 9.9 mg/dL (8.5-10.1); GFR 69.4; MAGNESIUM 1.7 mg/dL (1.8-2.4); TOTAL BILIRUBIN 0.7 mg/dL (0.2-1.0); TOTAL PROTEIN 9.7 g/dL (6.4-8.2)
[2020-12-13 13:44] LABS: POTASSIUM 2.7 mmol/L (3.5-5.1)
[2020-12-13 14:07] LABS: FECAL OB PT NEGATIVE (NEG)
[2020-12-13] MEDS ORDERED: ONDANSETRON PF 4 MG/2 ML VIAL. IV PRN (14:15)
[2020-12-13] MEDS ORDERED: fentaNYL PF VIAL 100 MCG/2 ML VIAL IV PRN (14:15)
--- NOTE | 2020-12-13 14:20 | ED.ADGEN ---
Past Medical History Past Medical History: Diabetes-Type II, GERD, Hypertension, P.U.D., Other Additional Past Medical Histor: stomach ulcers,CYCLIC VOMITING,SEPSIS,NARCOTIC DEPENDENCE,GASTRITIS Past Surgical History: Other Additional Past Surgical Histo: foot surgery, explor. abd sx Smoking Status: Current Every Day Smoker Alcohol Use: None Drug Use: None General Adult EDM: Chief Complaint: ABDOMINAL PAIN HPI: HPI: Patient is a 55 year old AA female who presents emergency department with complaints of persistent severe upper abdominal pain, nausea, and vomiting for the last 5 days. Patient has a history of type 2 diabetes, GERD, hypertension, peptic ulcer disease, cyclic vomiting, narcotic dependence, and gastritis. She denies any recent marijuana use. Patient reports she has only vomited one time today. She denies any blood in her vomit. Patient states she had a black bloody bowel movement earlier today. She denies any lower abdominal pain. Patient denies any chest pain, palpitations, cough, fever, dysuria, or hematuria. She currently rates her pain a 7 out of 10 on the pain scale, she describes the pain as a sharp stabbing sensation. Patient denies any alleviating factors. She states she has not been able to see GI yet, she has an appointment coming up but is not sure who the specialist is. Review of Systems: Review of Systems: Complete ROS is negative unless otherwise noted in HPI. Current Medications: Current Medications Medications (Trade) Dose Ordered Sig/[facility] Start Time Stop Time Status Last Admin Dose Admin Fentanyl Citrate (Fentanyl 2ml Vial) 50 mcg 1X ONCE 12/13/20 12:45 12/13/20 12:46 DC 12/13/20 12:48 50 MCG Labetalol HCl (Normodyne Iv Push) 10 mg 1X ONCE 12/13/20 12:45 12/13/20 12:46 DC 12/13/20 12:49 10 MG Ondansetron HCl (Zofran) 4 mg 1X ONCE 12/13/20 12:45 12/13/20 12:46 DC 12/13/20 12:48 4 MG Sodium Chloride 1,000 ml @ 1,000 mls/hr 1X ONCE 12/13/20 12:45 12/13/20 13:44 DC 12/13/20 12:48 1,000 MLS/HR Allergies: Allergies: Allergies Coded Allergies Type Severity Reaction Last Updated Verified Penicillins Allergy Intermediate HAS TOLERATED AMOXICILLIN 06/04/19 Yes Physical Exam: PE: See Above Constitutional: Well developed, well nourished, moderate distress, anxious, non- toxic appearance, thin. [] HENT: Normocephalic, atraumatic, bilateral external ears normal, nose normal. [] Eyes: PERRLA, EOMI, conjunctiva normal, no discharge. [] Neck: Normal range of motion, no stridor. [] Cardiovascular:Heart rate regular rhythm Lungs & Thorax: Respirations even and unlabored, no retractions, no respiratory distress, no wheezing, lungs CTA Abdomen: soft, bowel sounds active x4 quadrants, epigastric tenderness to palpation, no rebound tenderness, no guarding, no palpable mass Rectal Exam: Normal tone, No mass, Positive control Stool: Helms with yellow mucus, no rahul blood Guaiac: Negative Skin: Warm, dry, no erythema, no rash. [] Extremities: No cyanosis, ROM intact, no edema. [] Neurologic: Alert and oriented X 3, normal motor, normal sensory, no focal deficits noted. [] Psychologic: Affect anxious, judgement normal, mood anxious Current Patient Data: Labs: Laboratory Tests Test 12/13/20 12:19 12/13/20 13:18 12/13/20 13:50 Urine Collection Type Unknown Urine Color Yellow Urine Clarity Clear Urine pH 7.5 (<5.0-8.0) Urine Specific [place] 1.010 (1.000-1.030) Urine Protein 30 mg/dL (NEG-TRACE) Urine Glucose (UA) 100 mg/dL (NEG) Urine Ketones (Stick) Negative mg/dL (NEG) Urine Blood Trace (NEG) Urine Nitrite Negative (NEG) Urine Bilirubin Negative (NEG) Urine Urobilinogen Dipstick 0.2 mg/dL (0.2 mg/dL) Urine Leukocyte Esterase Negative (NEG) Urine RBC 0 /HPF (0-2) Urine WBC 0 /HPF (0-4) Urine Squamous Epithelial Cells Few /LPF Urine Bacteria 0 /HPF (0-FEW) White Blood Count 9.3 x10^3/uL (4.0-11.0) Red Blood Count 5.37 x10^6/uL (3.50-5.40) Hemoglobin 14.4 g/dL (12.0-15.5) Hematocrit 43.4 % (36.0-47.0) Mean Corpuscular Volume 81 fL (79-100) Mean Corpuscular Hemoglobin 27 pg (25-35) Mean Corpuscular Hemoglobin Concent 33 g/dL (31-37) Red Cell Distribution Width 17.5 % (11.5-14.5) H Platelet Count 170 x10^3/uL (140-400) Neutrophils (%) (Auto) 78 % (31-73) H Lymphocytes (%) (Auto) 13 % (24-48) L Monocytes (%) (Auto) 8 % (0-9) Eosinophils (%) (Auto) 0 % (0-3) Basophils (%) (Auto) 1 % (0-3) Neutrophils # (Auto) 7.3 x10^3/uL (1.8-7.7) Lymphocytes # (Auto) 1.2 x10^3/uL (1.0-4.8) Monocytes # (Auto) 0.7 x10^3/uL (0.0-1.1) Eosinophils # (Auto) 0.0 x10^3/uL (0.0-0.7) Basophils # (Auto) 0.1 x10^3/uL (0.0-0.2) Sodium Level 135 mmol/L (136-145) L Potassium Level 2.7 mmol/L (3.5-5.1) *L Chloride Level 95 mmol/L (98-107) L Carbon Dioxide Level 30 mmol/L (21-32) Anion Gap 10 (6-14) Blood Urea Nitrogen 14 mg/dL (7-20) Creatinine 1.0 mg/dL (0.6-1.0) Estimated GFR (Cockcroft-Gault) 69.4 BUN/Creatinine Ratio 14 (6-20) Glucose Level 160 mg/dL (70-99) H Calcium Level 9.9 mg/dL (8.5-10.1) Magnesium Level 1.7 mg/dL (1.8-2.4) L Total Bilirubin 0.7 mg/dL (0.2-1.0) Aspartate Amino Transferase (AST) 40 U/L (15-37) H Alanine Aminotransferase (ALT) 33 U/L (14-59) Alkaline Phosphatase 91 U/L (46-116) Total Protein 9.7 g/dL (6.4-8.2) H Albumin 4.3 g/dL (3.4-5.0) Albumin/Globulin Ratio 0.8 (1.0-1.7) L Lipase 91 U/L (73-393) Stool Occult Blood Negative (NEG) Laboratory Tests 12/13/20 13:18 Laboratory Tests 12/13/20 13:18 Vital Signs: Vital Signs Date Time Temp Pulse Resp B/P (MAP) Pulse Ox O2 Delivery O2 Flow Rate FiO2 12/13/20 13:16 81 20 240/131 (167) 99 Room Air 12/13/20 12:16 98.2 98.2 EKG: EKG: [] Heart Score: C/O Chest Pain: No Risk Scores: Score 0 - 3: 2.5% MACE over next 6 weeks - Discharge Home Score 4 - 6: 20.3% MACE over next 6 weeks - Admit for Clinical Observation Score 7 - 10: 72.7% MACE over next 6 weeks - Early Invasive Strategies Radiology/Procedures: Radiology/Procedures: [] Course & Med Decision Making: Course & Med Decision Making Pertinent Labs and Imaging studies reviewed. (See chart for details) 55-year-old female presents emergency department with complaints of chronic epigastric abdominal pain. Patient was hypertensive on arrival, she was given 10 mg of labetalol IV her blood pressure decreased to 141/107. She was given Zofran, a liter of fluid, and 50 mcg of fentanyl for her epigastric pain. Patient reported decreased pain after these medications. CBC is unremarkable; CMP reveals sodium of 135, potassium of 2.7, chloride of 95, glucose of 160, magnesium of 1.7, AST of 40, normal lipase otherwise unrem arkable; patient's UA is negative for ketones, unremarkable; fecal occult blood is negative. [id number] with Dr. Terrazas who is the admitting physician, and care was assumed following discussion of patient. Will admit patient for intractable abdominal pain and hypokalemia. He will place order for potassium replacement. Patient's vital signs stable. Patient remains afebrile, appears nontoxic, respirations even and unlabored. Patient will be admitted to the medical telemetry floor. Patient's case and plan of care also discussed with Dr. Trimble [] Tila Disclaimer: Tila Disclaimer: This electronic medical record was generated, in whole or in part, using a voice recognition dictation system. Departure Departure Impression: Primary Impression: Epigastric abdominal pain Additional Impression: Hypokalemia Disposition: 09 ADMITTED INPT THIS HOSP Admitting Physician: HOLLY Villarreal) Condition: STABLE Referrals: NO PCP (PCP) Problem Qualifiers MATTHEW RENTERIA APRN Dec 13, 2020 14:20
--- NOTE | 2020-12-13 15:28 | PDOC1 ---
History and Physical Date of Service: DOS: DATE: 12/13/20 TIME: 15:24 Chief Complaint: Chief Complain: Abdominal pain History of Present Illness: HPI: 55 year old AA female who presents emergency department with complaints of persistent severe upper abdominal pain, nausea, and vomiting for the last 5 days. Patient has a history of type 2 diabetes, GERD, hypertension, peptic ulcer disease, cyclic vomiting, narcotic dependence, and gastritis. She denies any recent marijuana use. Patient reports she has only vomited one time today. She denies any blood in her vomit. Patient states she had a black bloody bowel movement earlier today. She denies any lower abdominal pain. Patient denies any chest pain, palpitations, cough, fever, dysuria, or hematuria. She currently rates her pain a 7 out of 10 on the pain scale, she describes the pain as a sharp stabbing sensation. Patient denies any alleviating factors. She states she has not been able to see GI yet, she has an appointment coming up but is not sure who the specialist is. Chart review: GI saw her and all workup has been negative HPI from 05/26/20 : 55 y/o female who we have seen many many times. Typically presents w/ elevated BP, diffuse abd pain, and vomiting. Symptoms usually resolved quickly w/ improved BP control. Has had several EGDs @ [facility] – [place] - never w/ ulcer, initially +H. pylori and then negative (after treatment), gastritis and duodenitis noted (most recently 09/2018). Also two colonoscopies there - first w/ ischemic colitis, second normal. GES normal here in 03/2019 (T1/2 53 min). Normal GB on US in 05/2019. Refused HIDA 06/2019 ("can't lay flat"). Elevated Cortisol in 03/2019. No liver or pancreas history. 10 CTs here since 2016. In , abnormal urine collection w/ elevated VMA 24 hr and normetanephrine. Octreotide scan unrevealing in 06/2019. Normetanephrine less significantly elevated on repeat 24 hr urine in 06/2019. Says taking pantoprazole and GI cocktail. Lacks insight regarding her health, talks a lot about her "ulcer." Reports different symptoms this time. Reports urinary retention, then incontinence. BP normal. Associated w/ suprapubic pain. Also vomited. Urinating normally now, feeling better. Says she plans to see her PCP about a medication to help her gain weight. Says she doesn't eat at home - details unclear - just lacks appetite? Denies diarrhea, constipation, and bleeding. Past Medical/Surgical History: PMH/PSH: Past Medical History: Diabetes-Type II, GERD, Hypertension, P.U.D., stomach ulcers,CYCLIC VOMITING,SEPSIS,NARCOTIC DEPENDENCE,GASTRITIS Past Surgical History: foot surgery, explor. abd sx Allergies: Allergies: Coded Allergies: Penicillins (Verified Allergy, Intermediate, HAS TOLERATED AMOXICILLIN, 06/04/19) Family History: Family History: Reviewed with no relevant history Social History: Social History: Smoking Status: Current Every Day Smoker Alcohol Use: None Drug Use: None Current Medications: Current Medications Current Medications Labetalol HCl (Normodyne Iv Push) 10 mg 1X ONCE IVP Last administered on 12/13/20at 12:49; Start 12/13/20 at 12:45; Stop 12/13/20 at 12:46; Status DC Ondansetron HCl (Zofran) 4 mg 1X ONCE IV Last administered on 12/13/20at 12:48; Start 12/13/20 at 12:45; Stop 12/13/20 at 12:46; Status DC Sodium Chloride 1,000 ml @ 1,000 mls/hr 1X ONCE IV Last administered on 12/13/20at 12:48; Start 12/13/20 at 12:45; Stop 12/13/20 at 13:44; Status DC Fentanyl Citrate (Fentanyl 2ml Vial) 50 mcg 1X ONCE IV Last administered on 12/13/20at 12:48; Start 12/13/20 at 12:45; Stop 12/13/20 at 12:46; Status DC Ondansetron HCl (Zofran) 4 mg PRN Q8HRS PRN IV NAUSEA/VOMITING; Start 12/13/20 at 14:15; Stop 12/14/20 at 14:14 Fentanyl Citrate (Fentanyl 2ml Vial) 50 mcg PRN Q2HR PRN IV PAIN; Start 12/13/20 at 14:15; Stop 12/14/20 at 14:14 Active Scripts Active Sucralfate 1 Gm Tablet 1 Tab PO TID Ondansetron Odt (Ondansetron) 4 Mg Tab.rapdis 1 Tab PO PRN Q6-8HRS Promethazine HCl 50 Mg Supp.rect 50 Mg RC Q12HR PRN Pepcid (Famotidine) 20 Mg Tablet 20 Mg PO BID Levsin-Sl (Hyoscyamine Sulfate) 0.125 Mg Tab.subl 0.125 Mg SL Q4-6HRS PRN Promethazine Hcl 12.5 Mg Supp.rect 12.5 Mg RC Q6H PRN 5 Days Reglan (Metoclopramide Hcl) 10 Mg Tablet 10 Mg PO QIDACHS PRN Neurontin (Gabapentin) 300 Mg Capsule 300 Mg PO BID 30 Days Maalox Advanced Suspension (Mag Hydrox/Aluminum Hyd/Simeth) 355 Ml Oral.susp 10 Ml PO Q12HR PRN Pharmacist: Please mix 1:1 with Viscous lidocaine. Patient to take a total of 20mls PO q12h prn gastritis. Promethazine HCl 50 Mg Supp.rect 50 Mg RC PRN 2-3XD PRN 10 Days Polyethylene Glycol 3350 17 Gm Powd.pack 17 Gm PO PRN DAILY PRN 14 Days Guaifenesin 100 Mg/5 Ml Liquid 200 Mg PO PRN Q4HRS PRN 7 Days Dok (Docusate Sodium) 100 Mg Capsule 100 Mg PO PRN BID PRN 30 Days Mag-Al Plus Xs Suspension (Mag Hydrox/Al Hydrox/Simeth) 30 Ml Oral.susp 30 Ml PO PRN DAILY PRN 10 Days Tylenol (Acetaminophen) 325 Mg Tablet 650 Mg PO PRN Q4HRS PRN 30 Days Ondansetron Odt (Ondansetron) 4 Mg Tab.rapdis 1 Tab PO PRN Q6-8HRS PRN Vitamin D3 (Cholecalciferol (Vitamin D3)) 5,000 Unit Capsule 5,000 Unit PO DAILY 30 Days Pantoprazole Sodium (Pantoprazole Sodium) 40 Mg Tablet.dr 40 Mg PO DAILYAC Reported Oxycodone-Acetaminophen 10-325 (Oxycodone Hcl/Acetaminophen) 1 Each Tablet 1 Tab PO PRN QID PRN Sucralfate 1 Gm Tablet 1 Tab PO TID Amlodipine Besylate 10 Mg Tablet 1 Tab PO DAILY 90 Days Gabapentin 300 Mg Capsule 300 Mg PO TID ROS: Review of Systems Review of System REVIEW OF SYSTEMS: GENERAL: Denies weakness SKIN: No bruising, hair changes or rashes. EYES: No blurred, double or loss of vision. NOSE AND THROAT: No history of nosebleeds, hoarseness or sore throat. HEART: No history of palpitations, chest pain or shortness of breath on exertion. LUNGS: Denies cough, hemoptysis, wheezing or shortness of breath. GASTROINTESTINAL: Denies changes in appetite, nausea, vomiting, diarrhea or constipation. GENITOURINARY: No history of frequency, urgency, hesitancy or nocturia. NEUROLOGIC: Denies history of numbness, tingling, or tremor. PSYCHIATRIC: No history of panic, anxiety or depression. ENDOCRINE: No history of heat or cold intolerance, polyuria or polydipsia. EXTREMITIES: Denies joint pain, pain on walking or stiffness. Physical Exam: Vital Signs: Vital Signs Date Time Temp Pulse Resp B/P (MAP) Pulse Ox O2 Delivery O2 Flow Rate FiO2 12/13/20 13:47 95 20 141/107 (118) 99 Room Air 12/13/20 12:16 98.2 98.2 Physcial Exam: GEN: No apparent distress. Alert and oriented HEENT: Normal cephalic, atraumatic, external auditory canals are patent EYES: Extraocular muscles are intact, pupil are equally round and reactive to light and accommodation MUSCULOSKELETAL: Well developed , well nourished, good range of motion ENDOCRINE: No thyromegaly was palpated LYMPHATICS: No cervical chain or axillary nodes were noted HEMATOPOIETIC: No bruising NECK: Supple, no JVD, no thyromegaly was noted LUNGS: Clear to auscultation in all lung aleman without rhonchi or wheezing HEART: RRR, S!, S2 present. Peripheral pulses intact, no obvious murmurs noted ABDOMEN: Soft, epigastric tenderness positive bowel sounds, no organomegaly, normal bowel sounds EXTREMITIES: Without clubbing, cyanosis, or edema. Pedal pulses intact. Negative Homans sign NEUROLOGIC: Normal speech and tone. A&O x 3, moves all extremities, no obvious focal deficits PSYCHIATRIC: Normal affect, normal mood. Stable SKIN: No ulcerations or rashes, good skin turgor, no jaundice VASCULAR: Good capillary refill, neurovascular bundle appears to be intact Labs: Labs: Laboratory Tests Test 12/13/20 12:19 12/13/20 13:18 12/13/20 13:50 Urine Collection Type Unknown Urine Color Yellow Urine Clarity Clear Urine pH 7.5 (<5.0-8.0) Urine Specific [place] 1.010 (1.000-1.030) Urine Protein 30 mg/dL (NEG-TRACE) Urine Glucose (UA) 100 mg/dL (NEG) Urine Ketones (Stick) Negative mg/dL (NEG) Urine Blood Trace (NEG) Urine Nitrite Negative (NEG) Urine Bilirubin Negative (NEG) Urine Urobilinogen Dipstick 0.2 mg/dL (0.2 mg/dL) Urine Leukocyte Esterase Negative (NEG) Urine RBC 0 /HPF (0-2) Urine WBC 0 /HPF (0-4) Urine Squamous Epithelial Cells Few /LPF Urine Bacteria 0 /HPF (0-FEW) White Blood Count 9.3 x10^3/uL (4.0-11.0) Red Blood Count 5.37 x10^6/uL (3.50-5.40) Hemoglobin 14.4 g/dL (12.0-15.5) Hematocrit 43.4 % (36.0-47.0) Mean Corpuscular Volume 81 fL (79-100) Mean Corpuscular Hemoglobin 27 pg (25-35) Mean Corpuscular Hemoglobin Concent 33 g/dL (31-37) Red Cell Distribution Width 17.5 % (11.5-14.5) Platelet Count 170 x10^3/uL (140-400) Neutrophils (%) (Auto) 78 % (31-73) Lymphocytes (%) (Auto) 13 % (24-48) Monocytes (%) (Auto) 8 % (0-9) Eosinophils (%) (Auto) 0 % (0-3) Basophils (%) (Auto) 1 % (0-3) Neutrophils # (Auto) 7.3 x10^3/uL (1.8-7.7) Lymphocytes # (Auto) 1.2 x10^3/uL (1.0-4.8) Monocytes # (Auto) 0.7 x10^3/uL (0.0-1.1) Eosinophils # (Auto) 0.0 x10^3/uL (0.0-0.7) Basophils # (Auto) 0.1 x10^3/uL (0.0-0.2) Sodium Level 135 mmol/L (136-145) Potassium Level 2.7 mmol/L (3.5-5.1) Chloride Level 95 mmol/L (98-107) Carbon Dioxide Level 30 mmol/L (21-32) Anion Gap 10 (6-14) Blood Urea Nitrogen 14 mg/dL (7-20) Creatinine 1.0 mg/dL (0.6-1.0) Estimated GFR (Cockcroft-Gault) 69.4 BUN/Creatinine Ratio 14 (6-20) Glucose Level 160 mg/dL (70-99) Calcium Level 9.9 mg/dL (8.5-10.1) Magnesium Level 1.7 mg/dL (1.8-2.4) Total Bilirubin 0.7 mg/dL (0.2-1.0) Aspartate Amino Transf (AST/SGOT) 40 U/L (15-37) Alanine Aminotransferase (ALT/SGPT) 33 U/L (14-59) Alkaline Phosphatase 91 U/L (46-116) Total Protein 9.7 g/dL (6.4-8.2) Albumin 4.3 g/dL (3.4-5.0) Albumin/Globulin Ratio 0.8 (1.0-1.7) Lipase 91 U/L (73-393) Stool Occult Blood Negative (NEG) Laboratory Tests Test 12/13/20 12:19 12/13/20 13:18 12/13/20 13:50 Urine Collection Type Unknown Urine Color Yellow Urine Clarity Clear Urine pH 7.5 (<5.0-8.0) Urine Specific [place] 1.010 (1.000-1.030) Urine Protein 30 mg/dL (NEG-TRACE) Urine Glucose (UA) 100 mg/dL (NEG) Urine Ketones (Stick) Negative mg/dL (NEG) Urine Blood Trace (NEG) Urine Nitrite Negative (NEG) Urine Bilirubin Negative (NEG) Urine Urobilinogen Dipstick 0.2 mg/dL (0.2 mg/dL) Urine Leukocyte Esterase Negative (NEG) Urine RBC 0 /HPF (0-2) Urine WBC 0 /HPF (0-4) Urine Squamous Epithelial Cells Few /LPF Urine Bacteria 0 /HPF (0-FEW) White Blood Count 9.3 x10^3/uL (4.0-11.0) Red Blood Count 5.37 x10^6/uL (3.50-5.40) Hemoglobin 14.4 g/dL (12.0-15.5) Hematocrit 43.4 % (36.0-47.0) Mean Corpuscular Volume 81 fL (79-100) Mean Corpuscular Hemoglobin 27 pg (25-35) Mean Corpuscular Hemoglobin Concent 33 g/dL (31-37) Red Cell Distribution Width 17.5 % (11.5-14.5) Platelet Count 170 x10^3/uL (140-400) Neutrophils (%) (Auto) 78 % (31-73) Lymphocytes (%) (Auto) 13 % (24-48) Monocytes (%) (Auto) 8 % (0-9) Eosinophils (%) (Auto) 0 % (0-3) Basophils (%) (Auto) 1 % (0-3) Neutrophils # (Auto) 7.3 x10^3/uL (1.8-7.7) Lymphocytes # (Auto) 1.2 x10^3/uL (1.0-4.8) Monocytes # (Auto) 0.7 x10^3/uL (0.0-1.1) Eosinophils # (Auto) 0.0 x10^3/uL (0.0-0.7) Basophils # (Auto) 0.1 x10^3/uL (0.0-0.2) Sodium Level 135 mmol/L (136-145) Potassium Level 2.7 mmol/L (3.5-5.1) Chloride Level 95 mmol/L (98-107) Carbon Dioxide Level 30 mmol/L (21-32) Anion Gap 10 (6-14) Blood Urea Nitrogen 14 mg/dL (7-20) Creatinine 1.0 mg/dL (0.6-1.0) Estimated GFR (Cockcroft-Gault) 69.4 BUN/Creatinine Ratio 14 (6-20) Glucose Level 160 mg/dL (70-99) Calcium Level 9.9 mg/dL (8.5-10.1) Magnesium Level 1.7 mg/dL (1.8-2.4) Total Bilirubin 0.7 mg/dL (0.2-1.0) Aspartate Amino Transf (AST/SGOT) 40 U/L (15-37) Alanine Aminotransferase (ALT/SGPT) 33 U/L (14-59) Alkaline Phosphatase 91 U/L (46-116) Total Protein 9.7 g/dL (6.4-8.2) Albumin 4.3 g/dL (3.4-5.0) Albumin/Globulin Ratio 0.8 (1.0-1.7) Lipase 91 U/L (73-393) Stool Occult Blood Negative (NEG) Images: Images Multiple CT abdomen pelvis completed on 11/13/2020, 09/21/2020, 08/24/2020 all negative for acute intra-abdominal etiologies for her abdominal pain. Assessment/Plan Assessment/Plan Acute abdominal pain due to unclear etiology Acute electrolyte derangementhypokalemia, hyponatremia, hypochloremia, hypomagnesemia due to volume depletion Hyperglycemia Mild transaminitis Hypertensive urgency Synthetic cannabinoid use Admit to medicine for further management GI consult IV electrolyte replacement protocol IV labetalol as needed to maintain systolic blood pressures less than 180 Ambulation for DVT prophylaxis Protonix GI prophylaxis ADA diet Full code Discussed with RN and SW Disposition inpatient management as above Justifications for Admission Other Justification ALEX HIGGINS MD Dec 13, 2020 15:28
[2020-12-13] MEDS ORDERED: IV NORMAL SALINE 1000ML BAG 1,000 ML IV SCH (15:30)
[2020-12-13] MEDS ORDERED: SENNOSIDES 8.6 MG TABLET PO PRN (15:30)
[2020-12-13] MEDS ORDERED: ONDANSETRON PF 4 MG/2 ML VIAL. IVP PRN (15:30)
[2020-12-13] MEDS ORDERED: fentaNYL PF VIAL 100 MCG/2 ML VIAL IVP PRN (15:30)
[2020-12-13] MEDS ORDERED: LABETALOL 20 MG/4 ML DISP.SYRIN. IVP PRN (15:30)
[2020-12-13] MEDS ORDERED: DEXTROSE 50% 25 GM / 50ML DISP.SYRIN. IV PRN (15:30)
[2020-12-13] MEDS ORDERED: DOCUSATE SODIUM 100 MG CAPSULE. PO PRN (15:30)
[2020-12-13] MEDS ORDERED: ACETAMINOPHEN 325 MG TABLET. PO PRN (15:30)
[2020-12-13 16:00] VITALS: BP 163/102
[2020-12-13] MEDS ORDERED: MAGNESIUM SULFATE 2GM 50 ML IV PRN (16:00)
[2020-12-13] MEDS ORDERED: POTASSIUM CHLORIDE 20 MEQ TABLET.ER. PO ONE (16:15)
[2020-12-13] MEDS: POTASSIUM CHLORIDE 10MEQ 100 ML IV SCH ×2 (16:28→17:00)
[2020-12-13] MEDS ORDERED: CALCIUM CARBONATE 500 MG TAB.CHEW PO PRN (16:45)
[2020-12-13] MEDS ORDERED: CARVEDILOL 3.125 MG TABLET. PO SCH (17:00)
[2020-12-13] MEDS ORDERED: INSULIN LISPRO 300 UNITS/3 ML VIAL. SQ SCH (17:00)
[2020-12-13 17:56] LABS: BARBITURATES NEG (NEG); BENZODIAZEPINES NEG (NEG); CANNABINOIDS NEG (NEG); COCAINE NEG (NEG); METHADONE NEG (NEG); OPIATES POS (NEG); PHENCYCLIDINE NEG (NEG)
[2020-12-13 17:58] LABS: AMPHETAMINE/METHAMPHETAMINE NEG (NEG)
[2020-12-13 19:00] VITALS: BP 132/91
--- NOTE | 2020-12-13 20:05 | NUR ---
Patient asking to have her IV unhooked so she could go to ER to talk to family. I advised her that I could not do that. She became irate and ran to the elevators with IV pole. Security found her and brought her back to room [id number]. She eventually left AMA.
[2020-12-14] MEDS ORDERED: PANTOPRAZOLE IV PUSH 40 MG VIAL. IVP SCH (07:30)
== END 2020-12-13 19:50 | disposition left against medical advice (07) ==
LOC: ER 12:05 → 6 SOUTH 14:05
PROVIDERS: ADMIT Internal Medicine; ATTEND Internal Medicine
DX: R10.13 Epigastric pain (principal); I16.0 Hypertensive urgency; E11.65 Type 2 diabetes mellitus with hyperglycemia; K21.9 Gastro-esophageal reflux disease without esophagitis; K55.9 Vascular disorder of intestine, unspecified; E87.6 Hypokalemia; E83.42 Hypomagnesemia; E86.9 Volume depletion, unspecified; E87.1 Hypo-osmolality and hyponatremia; E87.8 Other disorders of electrolyte and fluid balance, not elsewhere classified; F12.90 Cannabis use, unspecified, uncomplicated; F17.200 Nicotine dependence, unspecified, uncomplicated; Z87.11 Personal history of peptic ulcer disease; Z98.890 Other specified postprocedural states; Z79.899 Other long term (current) drug therapy
CPT/HCPCS: 36415; 80053; 80307; 81001; 82274; 82962; 83690; 83735; 85025; 96361; 96365; 96366; 96375; 99284; G0378; J1815; J2405; J3010; J3480; J3490; J7030; G0379

== ENCOUNTER 2020-12-22 13:13 | Inpatient (IN) | payer SELFPAY ==
[~2020-12-22] VITALS: Ht 170.2 cm; Wt 59.0 kg
[2020-12-22 14:18] LABS: BILIRUBIN,URINE NEGATIVE (NEG); CLARITY,URINE CLEAR; COLOR,URINE YELLOW; NITRITE,URINE NEGATIVE (NEG); PROTEIN,URINE >=300 mg/dL (NEG-TRACE); UROBILINOGEN,URINE 0.2 mg/dL (0.2 mg/dL)
[2020-12-22 14:36] LABS: AMORPHOUS SEDIMENT,UR PRESENT /HPF; WBC,URINE 0 /HPF (0-4)
[2020-12-22 14:37] LABS: BACTERIA,URINE FEW /HPF (0-FEW)
[2020-12-22] MEDS ORDERED: PROCHLORPERAZINE 10 MG/2 ML VIAL. IV ONE (16:00)
[2020-12-22] MEDS ORDERED: IV NORMAL SALINE 1000ML BAG 1,000 ML IV ONE (16:00)
[2020-12-22] MEDS ORDERED: hydrALAZINE 20 MG/ML VIAL. IVP ONE (16:00)
[2020-12-22] MEDS ORDERED: LIDO:MAALOX 1:1 20 ML SINGLE DOSE. SWSW ONE (16:00)
[2020-12-22 17:01] LABS: BASO # 0.1 x10^3/uL (0.0-0.2); BASO % 0 % (0-3); EOS % 0 % (0-3); HEMATOCRIT 45.9 % (36.0-47.0); HEMOGLOBIN 14.8 g/dL (12.0-15.5); LYMPH # 1.9 x10^3/uL (1.0-4.8); LYMPH % 11 % (24-48); MEAN CORPUSCULAR HEMOGLOBIN 26 pg (25-35); MEAN CORPUSCULAR HGB CONC 32 g/dL (31-37); MEAN CORPUSCULAR VOLUME 81 fL (79-100); MONO # 0.9 x10^3/uL (0.0-1.1); MONO % 6 % (0-9); NEUT % 83 % (31-73); PLATELET COUNT 277 x10^3/uL (140-400); RED BLOOD COUNT 5.69 x10^6/uL (3.50-5.40); RED CELL DISTRIBUTION WIDTH 17.6 % (11.5-14.5)
[2020-12-22 17:20] LABS: ALBUMIN 4.2 g/dL (3.4-5.0); ALBUMIN/GLOBULIN RATIO 0.7 (1.0-1.7); CALCIUM 9.8 mg/dL (8.5-10.1); CREATININE 1.3 mg/dL (0.6-1.0); GFR 51.3; MAGNESIUM 2.1 mg/dL (1.8-2.4); TOTAL BILIRUBIN 0.8 mg/dL (0.2-1.0)
[2020-12-22 17:28] LABS: POTASSIUM 2.9 mmol/L (3.5-5.1)
[2020-12-22 18:00] LABS: % BANDS 2 % (0-9); % LYMPHS 12 % (24-48); % MONOS 3 % (0-10); % SEGS 83 % (35-66)
[2020-12-22] MEDS ORDERED: IV NORMAL SALINE 1000ML BAG 1,000 ML IV SCH (18:00)
[2020-12-22] MEDS ORDERED: PIP/TAZO PER PHARMACY MC PRN (18:00)
[2020-12-22 18:01] LABS: PLT ESTIMATE ADEQUATE (ADEQUATE)
[2020-12-22 18:02] LABS: ANISOCYTOSIS SLIGHT; TOXIC GRANULATION SLIGHT
--- NOTE | 2020-12-22 18:07 | ED.ADGEN ---
Past Medical History Past Medical History: Diabetes-Type II, GERD, Hypertension, P.U.D., Other Additional Past Medical Histor: stomach ulcers,CYCLIC VOMITING,SEPSIS,NARCOTIC DEPENDENCE,GASTRITIS Past Surgical History: Other Additional Past Surgical Histo: foot surgery, explor. abd sx Smoking Status: Former Smoker Alcohol Use: None Drug Use: None General Adult EDM: Chief Complaint: ABDOMINAL PAIN HPI: HPI: Patient is a 55 year old AA female who is well-known to this emergency department that presents with epigastric abdominal pain, and intractable nausea and vomiting. Patient states she has vomited at least 10 times today. She is also had diarrhea for the last 2 days. Patient reports that there is no blood in her vomit or her stools. She states that she has had 2 episodes of diarrhea in the last 24 hours. She denies any fever, cough, sore throat, headache, chest pain, or palpitations. Patient states that her entire body aches and she feels tired. She denies any shortness of breath, wheezing, or extremity swelling. Patient states she stopped using marijuana. She currently rates her abdominal pain a 10 out of 10 on pain scale. Patient has extensive medical history as reviewed above. She was admitted here last week for similar complaints but she left AMA. Review of Systems: Review of Systems: Complete ROS is negative unless otherwise noted in HPI. Current Medications: Current Medications Medications (Trade) Dose Ordered Sig/Emile Start Time Stop Time Status Last Admin Dose Admin Hydralazine HCl (Apresoline Inj) 10 mg 1X ONCE 12/22/20 16:00 12/22/20 16:01 DC Multi-Ingredient Mouthwash/Gargle (Gi Cocktail) 20 ml 1X ONCE 12/22/20 16:00 12/22/20 16:01 DC 12/22/20 16:39 20 ML Prochlorperazine Edisylate (Compazine) 10 mg 1X ONCE 12/22/20 16:00 12/22/20 16:01 DC 12/22/20 16:38 10 MG Sodium Chloride 1,000 ml @ 1,000 mls/hr 1X ONCE 12/22/20 16:00 12/22/20 16:59 DC 12/22/20 16:36 1,000 MLS/HR Allergies: Allergies: Allergies Coded Allergies Type Severity Reaction Last Updated Verified Penicillins Allergy Intermediate HAS TOLERATED AMOXICILLIN 06/04/19 Yes Physical Exam: PE: See Above Constitutional: Well developed, well nourished, moderate distress, anxious, non- toxic appearance, thin. [] HENT: Normocephalic, atraumatic, bilateral external ears normal, nose normal. [] Eyes: PERRLA, EOMI, conjunctiva normal, no discharge. [] Neck: Normal range of motion, no stridor. [] Cardiovascular:Heart rate regular rhythm Lungs & Thorax: Respirations even and unlabored, no retractions, no respiratory distress, no wheezing, lungs CTA Abdomen: soft, bowel sounds active x4 quadrants, epigastric tenderness to palpation, no rebound tenderness, no guarding, no palpable mass Skin: Warm, dry, no erythema, no rash. [] Extremities: No cyanosis, ROM intact, no edema. [] Neurologic: Alert and oriented X 3, normal motor, normal sensory, no focal deficits noted. [] Psychologic: Affect anxious, judgement normal, mood anxious Current Patient Data: Labs: Laboratory Tests Test 12/22/20 13:30 12/22/20 16:20 Urine Collection Type Unknown Urine Color Yellow Urine Clarity Clear Urine pH 8.0 (<5.0-8.0) Urine Specific [place] 1.010 (1.000-1.030) Urine Protein >=300 mg/dL (NEG-TRACE) Urine Glucose (UA) 100 mg/dL (NEG) Urine Ketones (Stick) Negative mg/dL (NEG) Urine Blood Small (NEG) Urine Nitrite Negative (NEG) Urine Bilirubin Negative (NEG) Urine Urobilinogen Dipstick 0.2 mg/dL (0.2 mg/dL) Urine Leukocyte Esterase Negative (NEG) Urine RBC 3-5 /HPF (0-2) Urine WBC 0 /HPF (0-4) Urine Squamous Epithelial Cells Mod /LPF Urine Amorphous Sediment Present /HPF Urine Bacteria Few /HPF (0-FEW) White Blood Count 17.0 x10^3/uL (4.0-11.0) H Red Blood Count 5.69 x10^6/uL (3.50-5.40) H Hemoglobin 14.8 g/dL (12.0-15.5) Hematocrit 45.9 % (36.0-47.0) Mean Corpuscular Volume 81 fL (79-100) Mean Corpuscular Hemoglobin 26 pg (25-35) Mean Corpuscular Hemoglobin Concent 32 g/dL (31-37) Red Cell Distribution Width 17.6 % (11.5-14.5) H Platelet Count 277 x10^3/uL (140-400) Neutrophils (%) (Auto) 83 % (31-73) H Lymphocytes (%) (Auto) 11 % (24-48) L Monocytes (%) (Auto) 6 % (0-9) Eosinophils (%) (Auto) 0 % (0-3) Basophils (%) (Auto) 0 % (0-3) Neutrophils # (Auto) 14.0 x10^3/uL (1.8-7.7) H Lymphocytes # (Auto) 1.9 x10^3/uL (1.0-4.8) Monocytes # (Auto) 0.9 x10^3/uL (0.0-1.1) Eosinophils # (Auto) 0.0 x10^3/uL (0.0-0.7) Basophils # (Auto) 0.1 x10^3/uL (0.0-0.2) Platelet Estimate Pending Sodium Level 137 mmol/L (136-145) Potassium Level 2.9 mmol/L (3.5-5.1) *L Chloride Level 93 mmol/L (98-107) L Carbon Dioxide Level 27 mmol/L (21-32) Anion Gap 17 (6-14) H Blood Urea Nitrogen 17 mg/dL (7-20) Creatinine 1.3 mg/dL (0.6-1.0) H Estimated GFR (Cockcroft-Gault) 51.3 BUN/Creatinine Ratio 13 (6-20) Glucose Level 132 mg/dL (70-99) H Calcium Level 9.8 mg/dL (8.5-10.1) Magnesium Level 2.1 mg/dL (1.8-2.4) Total Bilirubin 0.8 mg/dL (0.2-1.0) Aspartate Amino Transferase (AST) 29 U/L (15-37) Alanine Aminotransferase (ALT) 22 U/L (14-59) Alkaline Phosphatase 100 U/L (46-116) Total Protein 10.0 g/dL (6.4-8.2) H Albumin 4.2 g/dL (3.4-5.0) Albumin/Globulin Ratio 0.7 (1.0-1.7) L Lipase 132 U/L (73-393) Laboratory Tests 12/22/20 16:20 Laboratory Tests 12/22/20 16:20 Vital Signs: Vital Signs Date Time Temp Pulse Resp B/P (MAP) Pulse Ox O2 Delivery O2 Flow Rate FiO2 12/22/20 16:31 98.4 97 16 131/91 (104) 100 Room Air 98.4 EKG: EKG: [] Heart Score: C/O Chest Pain: No Risk Factors: Risk Factors: DM, Current or recent (<one month) smoker, HTN, HLP, family history of CAD, obesity. Risk Scores: Score 0 - 3: 2.5% MACE over next 6 weeks - Discharge Home Score 4 - 6: 20.3% MACE over next 6 weeks - Admit for Clinical Observation Score 7 - 10: 72.7% MACE over next 6 weeks - Early Invasive Strategies Radiology/Procedures: Radiology/Procedures: [] Course & Med Decision Making: Course & Med Decision Making Pertinent Labs and Imaging studies reviewed. (See chart for details) [id number]-spoke with Dr. Veloz who is the admitting physician, and care was assumed following discussion of patient. Will admit patient for intractable nausea vomiting, epigastric pain, hypokalemia, and leukocytosis. Will order dose of Zosyn IV. Will also obtain a CT abdomen pelvis as requested. Patient's vital signs stable. Patient remains afebrile, appears nontoxic, respirations even and unlabored. Patient will be admitted to the medical /surgical floor. Patient's case and plan of care also discussed with Dr. Trimble [] Tila Disclaimer: Tila Disclaimer: This electronic medical record was generated, in whole or in part, using a voice recognition dictation system. Departure Departure Impression: Primary Impression: Intractable vomiting with nausea Additional Impressions: Leukocytosis Epigastric abdominal pain Disposition: ADMITTED INPT THIS HOSP Admitting Physician: HOLLY Valenzuela) Condition: STABLE Referrals: NO PCP (PCP) Problem Qualifiers Additional Impressions: Leukocytosis Leukocytosis type: unspecified Qualified Codes: D72.829 - Elevated white blood cell count, unspecified MATTHEW RENTERIA GLOVE SEWER Dec 22, 2020 18:07
[2020-12-22] MEDS ORDERED: PIPERACILLIN/TAZOBACTAM 3.375 GM in IV NORMAL SALINE 50ML 50 ML IV ONE (18:15)
[2020-12-22] MEDS ORDERED: POTASSIUM CL 40MEQ IN 0.9%NACL 1,000 ML IV ONE (18:15)
[2020-12-22] MEDS ORDERED: CONTRAST GIVEN. MC PRN (18:15)
[2020-12-22] MEDS ORDERED: IOHEXOL 300 MG/ML 100ML VIAL. IV ONE (18:15)
[2020-12-22] MEDS: ONDANSETRON PF 4 MG/2 ML VIAL. IV PRN (18:32)
[2020-12-22] MEDS: fentaNYL PF VIAL 100 MCG/2 ML VIAL IV PRN (18:33)
--- NOTE | 2020-12-22 18:33 | RAD ---
Exam: CT of abdomen and pelvis with contrast INDICATION: Epigastric abdominal pain TECHNIQUE: Sequential axial images through the abdomen and pelvis obtained following the administrati on of 60 mL of Omni 300 IV contrast. Sagittal and coronal reformatted images were reconstructed from the axial data and reviewed. Comparisons: 11/13/2020 FINDINGS: Heart size is normal. No pericardial effusion. Visualized lung bases are clear. No pleural effusion. Liver, spleen, pancreas, gallbladder and adrenals are unremarkable. No perinephric inflammation or hydronephrosis. No renal or ureteral calculi are identified. Bladder is decompressed not well evaluated. Uterus is not enlarged. No abnormal adnexal mass. Large and small bowel are unremarkable. Appendix is normal. No free intra-abdominal air or fluid. No obstruction. Abdominal aorta has a normal course caliber. Abdominal vasculature is patent. No enlarged intra-abdominal lymph nodes are identified. No suspicious osseous lesions or acute fractures. IMPRESSION: No acute process identified within the abdomen or pelvis. Exposure: One or more of the following in the visualized dose reduction techniques were utilized for this examination: 1. Automated exposure control 2. Adjustment of the MA and/or KV according to patient size 3. Use of iterative of reconstructive technique Electronically signed by: Nasrin Cali MD (12/22/2020 6:30 PM) [facility]
--- NOTE | 2020-12-22 18:38 | HP ---
ADMIT DATE: 12/22/2020 CHIEF COMPLAINT: Abdominal pain. HISTORY OF PRESENT ILLNESS: The patient is a pleasant 55-year-old female well known to our service. At this time, she presents with abdominal pain, rates it as 7/10. She has associated weakness. She has been losing some weight. She states she has been on a liquid diet, increased her home meds, but that did not seem to work. Describes her symptoms as irritating. I discussed the case with the ER nurse practitioner. We are going to admit the patient. She does have a white count of 17,000 and potassium of 2.9. PAST MEDICAL HISTORY: Multiple admissions for abdominal pain. ALLERGIES: None. FAMILY HISTORY: Diabetes. SOCIAL HISTORY: She does not drink, smoke or take drugs. She states she ____ for her living. MEDICATIONS: Reviewed, please refer to the MRAD. REVIEW OF SYSTEMS: GENERAL: No history of weight change, weakness or fevers. SKIN: No bruising, hair changes or rashes. EYES: No blurred, double or loss of vision. NOSE AND THROAT: No history of nosebleeds, hoarseness or sore throat. HEART: No history of palpitations, chest pain or shortness of breath on exertion. LUNGS: Denies cough, hemoptysis, wheezing or shortness of breath. GASTROINTESTINAL: She complains of abdominal pain. GENITOURINARY: No history of frequency, urgency, hesitancy or nocturia. NEUROLOGIC: Denies history of numbness, tingling, tremor or weakness. PSYCHIATRIC: No history of panic, anxiety or depression. ENDOCRINE: No history of heat or cold intolerance, polyuria or polydipsia. EXTREMITIES: Denies muscle weakness, joint pain, pain on walking or stiffness. PHYSICAL EXAMINATION: VITALS: Within normal limits and are stable. GENERAL: No apparent distress. Alert and oriented. HEENT: Normal cephalic atraumatic, external auditory canals are patent. Eyes: Extraocular muscles are intact, pupils are equally round and reactive to light and accommodation. MUSCULOSKELETAL: Well developed, well nourished, good range of motion. ENDOCRINE: No thyromegaly was palpated. LYMPHATICS: No cervical chain or axillary nodes were noted. HEMATOPOIETIC: No bruising. NECK: Supple, no JVD, no thyromegaly was noted. LUNGS: Clear to auscultation in all lung aleman without rhonchi or wheezing. HEART: RRR, S1, S2 present. Peripheral pulses intact, no obvious murmurs were noted. ABDOMEN: She has decreased bowel sounds with some tenderness. EXTREMITIES: Without any cyanosis, clubbing, or edema. Pedal pulses intact, Homans sign is negative. NEUROLOGIC: Normal speech, normal tone. A and O x 3, moves all extremities, no obvious focal deficits. PSYCHIATRIC: Normal affect, normal mood. Stable. SKIN: No ulcerations or rashes, good skin turgor, no jaundice. VASCULAR: Good capillary refill, neurovascular bundle appears to be intact. LABORATORY DATA: White count 17. Potassium is 2.9. UA is negative. IMAGING: Abdominal imaging is pending. ASSESSMENT AND PLAN: Abdominal pain with leukocytosis, suspect possible colitis. Again, I discussed the case with the ER nurse practitioner. We are going to start her on some IV Zosyn, IV fluids, get some imaging of the abdomen. Home meds. DVT prophylaxis. Full code. WHIT CABA DO DR: SHELBY/lev JOB#: [id number] / [id number]
[2020-12-22 19:37] VITALS: BP 156/112
[2020-12-22] MEDS ORDERED: CALC500T31 PO (21:36)
[2020-12-22] MEDS ORDERED: OMEP40CA45 PO (21:36)
[2020-12-22] MEDS ORDERED: CARV3.123 PO (21:36)
[2020-12-22 22:59] VITALS: BP 160/114
[2020-12-22] MEDS ORDERED: C.DIFF MED SCREEN BY RX. MC ONE (23:00)
[2020-12-23] MEDS: PIPERACILLIN/TAZOBACTAM 3.375 GM in IV NORMAL SALINE 50ML 50 ML IV SCH ×3 (00:07→11:34)
[2020-12-23] MEDS ORDERED: ONDANSETRON ODT 4 MG TAB.RAPDIS. PO PRN (01:30)
[2020-12-23] MEDS ORDERED: oxyCODONE/APAP 10/325 1 TAB TABLET PO PRN (01:30)
[2020-12-23] MEDS ORDERED: ACETAMINOPHEN 325 MG TABLET. PO PRN (01:30)
[2020-12-23] MEDS ORDERED: cloNIDine HCL 0.1 MG TABLET PO PRN (01:45)
[2020-12-23 03:05] VITALS: BP 111/81
[2020-12-23 07:00] VITALS: BP 102/82
[2020-12-23] MEDS ORDERED: PANTOPRAZOLE 40 MG TABLET.DR. PO SCH (07:30)
[2020-12-23] MEDS ORDERED: CARVEDILOL 3.125 MG TABLET. PO SCH (08:00)
[2020-12-23] MEDS ORDERED: CALCIUM CARBONATE 500 MG TABLET PO SCH (08:00)
[2020-12-23] MEDS ORDERED: amLODIPine BESYLATE 10 MG TABLET PO SCH (09:00)
[2020-12-23] MEDS ORDERED: FAMOTIDINE 20 MG TABLET. PO SCH (09:00)
[2020-12-23] MEDS ORDERED: NON FORMULARY ITEM (Omeprazole 40 MG) PO SCH (09:00)
--- NOTE | 2020-12-23 09:13 | PDOC ---
[employer] PROGRESS NOTE Date of Service DOS: DATE: 12/23/20 TIME: 09:08 Chief Complaint Chief Complaint Abdominal pain N/V Leukocytosis Suspected Colitis History of Present Illness History of Present Illness 12/23/2020 Patient seen and examined Reports improvement of abdominal pain Discussed with RN Chart reviewed Vitals/I&O Vitals/I&O: Vital Signs Date Time Temp Pulse Resp B/P (MAP) Pulse Ox O2 Delivery O2 Flow Rate FiO2 12/23/20 07:00 98.5 80 20 102/82 (89) 100 Room Air 98.5 I & O 12/22/20 12/22/20 12/23/20 15:00 23:00 07:00 Intake Total 250 ml Output Total 250 ml 600 ml Balance -250 ml -350 ml Physical Exam General: Alert, Oriented X3, No acute distress Heart: Regular rate, No murmurs Lungs: Clear, Other (No wheezes or crackles) Abdomen: Soft, No tenderness Extremities: No clubbing, No edema Skin: No rashes, No significant lesion Labs Labs: Laboratory Tests Test 12/22/20 13:30 12/22/20 16:20 12/22/20 23:00 12/23/20 06:05 Urine Collection Type Unknown Urine Color Yellow Urine Clarity Clear Urine pH 8.0 (<5.0-8.0) Urine Specific [place] 1.010 (1.000-1.030) Urine Protein >=300 mg/dL (NEG-TRACE) Urine Glucose (UA) 100 mg/dL (NEG) Urine Ketones (Stick) Negative mg/dL (NEG) Urine Blood Small (NEG) Urine Nitrite Negative (NEG) Urine Bilirubin Negative (NEG) Urine Urobilinogen Dipstick 0.2 mg/dL (0.2 mg/dL) Urine Leukocyte Esterase Negative (NEG) Urine RBC 3-5 /HPF (0-2) Urine WBC 0 /HPF (0-4) Urine Squamous Epithelial Cells Mod /LPF Urine Amorphous Sediment Present /HPF Urine Bacteria Few /HPF (0-FEW) White Blood Count 17.0 x10^3/uL (4.0-11.0) Red Blood Count 5.69 x10^6/uL (3.50-5.40) Hemoglobin 14.8 g/dL (12.0-15.5) Hematocrit 45.9 % (36.0-47.0) Mean Corpuscular Volume 81 fL (79-100) Mean Corpuscular Hemoglobin 26 pg (25-35) Mean Corpuscular Hemoglobin Concent 32 g/dL (31-37) Red Cell Distribution Width 17.6 % (11.5-14.5) Platelet Count 277 x10^3/uL (140-400) Neutrophils (%) (Auto) 83 % (31-73) Lymphocytes (%) (Auto) 11 % (24-48) Monocytes (%) (Auto) 6 % (0-9) Eosinophils (%) (Auto) 0 % (0-3) Basophils (%) (Auto) 0 % (0-3) Neutrophils # (Auto) 14.0 x10^3/uL (1.8-7.7) Lymphocytes # (Auto) 1.9 x10^3/uL (1.0-4.8) Monocytes # (Auto) 0.9 x10^3/uL (0.0-1.1) Eosinophils # (Auto) 0.0 x10^3/uL (0.0-0.7) Basophils # (Auto) 0.1 x10^3/uL (0.0-0.2) Segmented Neutrophils % 83 % (35-66) Band Neutrophils % 2 % (0-9) Lymphocytes % 12 % (24-48) Monocytes % 3 % (0-10) Toxic Granulation Slight Platelet Estimate Adequate (ADEQUATE) Anisocytosis Slight Sodium Level 137 mmol/L (136-145) Potassium Level 2.9 mmol/L (3.5-5.1) Chloride Level 93 mmol/L (98-107) Carbon Dioxide Level 27 mmol/L (21-32) Anion Gap 17 (6-14) Blood Urea Nitrogen 17 mg/dL (7-20) Creatinine 1.3 mg/dL (0.6-1.0) Estimated GFR (Cockcroft-Gault) 51.3 BUN/Creatinine Ratio 13 (6-20) Glucose Level 132 mg/dL (70-99) Calcium Level 9.8 mg/dL (8.5-10.1) Magnesium Level 2.1 mg/dL (1.8-2.4) Total Bilirubin 0.8 mg/dL (0.2-1.0) Aspartate Amino Transf (AST/SGOT) 29 U/L (15-37) Alanine Aminotransferase (ALT/SGPT) 22 U/L (14-59) Alkaline Phosphatase 100 U/L (46-116) Total Protein 10.0 g/dL (6.4-8.2) Albumin 4.2 g/dL (3.4-5.0) Albumin/Globulin Ratio 0.7 (1.0-1.7) Lipase 132 U/L (73-393) Lactic Acid Level 2.6 mmol/L (0.4-2.0) 1.9 mmol/L (0.4-2.0) Review of Systems Review of Systems: Denies nausea, vomiting, abdominal pain Assessment and Plan Assessmemt and Plan Assessment: Leukocytosis Abdominal Pain - resolved Nausea/vomiting - resolved Plan: Repeat CBC/BMP to monitor leukocytosis and hypokalemia Discharge if leukocytosis improved DVT prophylaxis Home meds Full code Comment Review of Relevant I have reviewed the following items starr (where applicable) has been applied. Medications: Current Medications Medications (Trade) Dose Ordered Sig/Emile Route PRN Reason Start Time Stop Time Status Last Admin Dose Admin Multi-Ingredient Mouthwash/Gargle (Gi Cocktail) 20 ml 1X ONCE SWSW 12/22/20 16:00 12/22/20 16:01 DC 12/22/20 16:39 Prochlorperazine Edisylate (Compazine) 10 mg 1X ONCE IV 12/22/20 16:00 12/22/20 16:01 DC 12/22/20 16:38 Sodium Chloride 1,000 ml @ 1,000 mls/hr 1X ONCE IV 12/22/20 16:00 12/22/20 16:59 DC 12/22/20 16:36 Ondansetron HCl (Zofran) 4 mg PRN Q8HRS PRN IV NAUSEA/VOMITING 12/22/20 18:00 12/23/20 17:59 12/22/20 18:32 Fentanyl Citrate (Fentanyl 2ml Vial) 50 mcg PRN Q2HR PRN IV PAIN 12/22/20 18:00 12/23/20 17:59 12/22/20 18:33 Piperacillin Sod/ Tazobactam Sod 3.375 gm/Sodium Chloride 50 ml @ 100 mls/hr 1X ONCE IV 12/22/20 18:15 12/22/20 18:44 DC 12/22/20 18:33 Potassium Chloride/Sodium Chloride 1,000 ml @ 100 mls/hr Q10H ONCE IV 12/22/20 18:15 12/23/20 04:14 DC 12/22/20 18:35 Iohexol (Omnipaque 300 Mg/ml) 60 ml 1X ONCE IV 12/22/20 18:15 12/22/20 18:16 DC 12/22/20 18:18 Piperacillin Sod/ Tazobactam Sod 3.375 gm/Sodium Chloride 50 ml @ 100 mls/hr Q6HRS IV 12/23/20 00:00 12/23/20 05:30 Acetaminophen (Tylenol) 650 mg PRN Q4HRS PRN PO TEMP OVER 100.4F OR MILD PAIN 12/23/20 01:30 12/23/20 07:34 Justifications for Admission Other Justification WHIT CABA III DO Dec 23, 2020 09:13
[2020-12-23] MEDS: ONDANSETRON PF 4 MG/2 ML VIAL. IV PRN (10:03)
[2020-12-23] MEDS: fentaNYL PF VIAL 100 MCG/2 ML VIAL IV PRN (10:06)
--- NOTE | 2020-12-23 10:13 | NUR ---
SW following. Discussed with RN, pt from home alone, room air, NPO. RN advised no SW needs at this time. Med Assist following for self pay status. SW will continue to follow.
[2020-12-23 10:35] VITALS: BP 117/89
--- NOTE | 2020-12-23 11:43 | NUR ---
Pt. was caught smoking in the room after a visitor arrived. Pt. educated that there is no smoking on hospital grounds. Pt. asked to hand over digitizer operator, emptied purse at bedside and no digitizer operator was found. She stated she found the cigarette in her purse and gave ithe digitizer operator to the visitor. Pt. informed the Dr. would be called to order a Nicotine patch for her. pt. verbalized understanding.
[2020-12-23] MEDS ORDERED: NICOTINE 21MG PATCH. TD PRN (12:15)
[2020-12-23 15:00] VITALS: BP 100/60
[2020-12-23 15:05] LABS: BASO % 1 % (0-3); EOS % 0 % (0-3); HEMATOCRIT 36.3 % (36.0-47.0); HEMOGLOBIN 11.5 g/dL (12.0-15.5); LYMPH # 2.6 x10^3/uL (1.0-4.8); LYMPH % 30 % (24-48); MEAN CORPUSCULAR HEMOGLOBIN 26 pg (25-35); MEAN CORPUSCULAR HGB CONC 32 g/dL (31-37); MEAN CORPUSCULAR VOLUME 83 fL (79-100); MONO # 0.8 x10^3/uL (0.0-1.1); MONO % 9 % (0-9); NEUT # 5.4 x10^3/uL (1.8-7.7); NEUT % 61 % (31-73); PLATELET COUNT 203 x10^3/uL (140-400); RED BLOOD COUNT 4.39 x10^6/uL (3.50-5.40); WHITE BLOOD COUNT 8.9 x10^3/uL (4.0-11.0)
[2020-12-23 15:48] LABS: ALBUMIN 2.9 g/dL (3.4-5.0); ALBUMIN/GLOBULIN RATIO 0.8 (1.0-1.7); CALCIUM 8.5 mg/dL (8.5-10.1); CREATININE 1.5 mg/dL (0.6-1.0); GFR 43.5; POTASSIUM 3.1 mmol/L (3.5-5.1); TOTAL BILIRUBIN 0.4 mg/dL (0.2-1.0); TOTAL PROTEIN 6.7 g/dL (6.4-8.2)
--- NOTE | 2020-12-23 15:49 | NUR ---
Pt. discharged to home, verbalized understanding of discharge instructions. Pt. refused to wait for escort to front door and did not get one bag of her home medications from pharmacy. Bag that was left was returned to pharmacy. Attempt made to call to inform pt of home meds that were left. No answer at number provided on face sheet, voicemail was full, unable to leave message.
--- NOTE | 2020-12-24 08:43 | DS ---
DATE OF DISCHARGE: 12/23/2020 ADMISSION DIAGNOSES: Abdominal pain with leukocytosis, possible colitis. DISCHARGE DIAGNOSES: Resolving abdominal pain, tobacco abuse, history of substance abuse, history of multiple admissions for abdominal pain, noncompliance, polypharmacy, irritable bowel syndrome, hypertension, arthritis, narcotic dependence, neuropathy, constipation, and gastroesophageal reflux disease. CONSULTS: None. HOSPITAL COURSE: The patient is a pleasant middle-aged female, well known to our service. She gets admitted often for abdominal pain. At this time, she had a leukocytosis of 17,000. I was concerned she could have colitis. We admitted her. We gave her empiric IV Zosyn and fluids. The next day, her white count was back down to 7. Yesterday, I saw and examined her, she was at her baseline. We advanced her diet and discharged to home. DISPOSITION: Home. ACTIVITY: As tolerated. DIET: Low sodium. MEDICATIONS: Please see the MRAD. Tylenol p.r.n., amlodipine 10 a day, calcium carbonate 500 a day, carvedilol 3.125 b.i.d., vitamin D, docusate 100 b.i.d., Pepcid 20 b.i.d., gabapentin 300 t.i.d., Levsin-S 0.125 q 6. hours p.r.n., milk of mag, metoclopramide 10 q.i.d., omeprazole 40 a day, ondansetron 4 mg p.r.n. q. 8, oxycodone 10/325 one q. 6 p.r.n., Protonix 40 a day, polyethylene glycol packets p.r.n., promethazine suppositories p.r.n., and Carafate 1 gram t.i.d. TOTAL TIME: [address] WHIT CABA DO [address]: SHELBY/lev JOB#: [id number] / [id number]
== END 2020-12-23 15:53 | disposition home or self-care (01) | DRG 392 ==
LOC: ER 13:13 → 4 NORTH 17:51
PROVIDERS: ADMIT Internal Medicine; ATTEND Internal Medicine
DX: K52.9 Noninfective gastroenteritis and colitis, unspecified (principal); I10 Essential (primary) hypertension; K21.9 Gastro-esophageal reflux disease without esophagitis; M19.90 Unspecified osteoarthritis, unspecified site; K59.00 Constipation, unspecified; D72.829 Elevated white blood cell count, unspecified; E11.40 Type 2 diabetes mellitus with diabetic neuropathy, unspecified; Z91.19 Patient's noncompliance with other medical treatment and regimen; Z87.11 Personal history of peptic ulcer disease; Z83.3 Family history of diabetes mellitus; Z72.0 Tobacco use
CPT/HCPCS: 36415; 74177; 80053; 81001; 83605; 83690; 83735; 85007; 85025; 87040; 96374; 96375; J0780; J2405; J2543; J3010; J3480; J7030; Q9967; 99285-25; G0378

== ENCOUNTER 2021-03-11 12:42 | Emergency (ER) | payer SELFPAY ==
[~2021-03-11] VITALS: Ht 170.2 cm; Wt 59.0 kg
[~2021-03-11 12:42] MED LIST changes: +CALC500T31 PO; +CARV3.123 PO; +OMEP40CA7 PO
[2021-03-11] MEDS ORDERED: IV NORMAL SALINE 1000ML BAG 1,000 ML IV ONE (14:00)
[2021-03-11] MEDS ORDERED: PROCHLORPERAZINE 10 MG/2 ML VIAL. IV ONE (14:30)
[2021-03-11] MEDS ORDERED: fentaNYL PF VIAL 100 MCG/2 ML VIAL IV ONE ×2 (14:30→17:30)
[2021-03-11 15:02] LABS: BASO # 0.1 x10^3/uL (0.0-0.2); BASO % 1 % (0-3); EOS % 0 % (0-3); LYMPH # 1.6 x10^3/uL (1.0-4.8); LYMPH % 13 % (24-48); MEAN CORPUSCULAR HEMOGLOBIN 27 pg (25-35); MEAN CORPUSCULAR HGB CONC 33 g/dL (31-37); MEAN CORPUSCULAR VOLUME 83 fL (79-100); MONO # 0.8 x10^3/uL (0.0-1.1); MONO % 6 % (0-9); NEUT # 9.9 x10^3/uL (1.8-7.7); NEUT % 80 % (31-73); PLATELET COUNT 237 x10^3/uL (140-400); RED BLOOD COUNT 5.88 x10^6/uL (3.50-5.40); RED CELL DISTRIBUTION WIDTH 17.8 % (11.5-14.5); WHITE BLOOD COUNT 12.3 x10^3/uL (4.0-11.0)
[2021-03-11 15:25] LABS: BILIRUBIN,URINE NEGATIVE (NEG); CLARITY,URINE CLOUDY; COLOR,URINE YELLOW; NITRITE,URINE NEGATIVE (NEG); PH,URINE 7.5 (<5.0-8.0); PROTEIN,URINE 100 mg/dL (NEG-TRACE); UROBILINOGEN,URINE 0.2 mg/dL (0.2 mg/dL)
[2021-03-11 15:32] LABS: AMPHETAMINE/METHAMPHETAMINE NEG (NEG); BARBITURATES NEG (NEG); BENZODIAZEPINES NEG (NEG); CANNABINOIDS NEG (NEG); COCAINE NEG (NEG); METHADONE NEG (NEG); OPIATES NEG (NEG); PHENCYCLIDINE NEG (NEG)
[2021-03-11 15:34] LABS: BACTERIA,URINE FEW /HPF (0-FEW); WBC,URINE OCC /HPF (0-4)
[2021-03-11 15:58] LABS: ALBUMIN 4.9 g/dL (3.4-5.0); ALBUMIN/GLOBULIN RATIO 1.1 (1.0-1.7); CALCIUM 9.7 mg/dL (8.5-10.1); CREATININE 1.1 mg/dL (0.6-1.0); GFR 61.9; MAGNESIUM 2.2 mg/dL (1.8-2.4); TOTAL BILIRUBIN 0.7 mg/dL (0.2-1.0); TOTAL PROTEIN 9.3 g/dL (6.4-8.2)
[2021-03-11 16:04] LABS: POTASSIUM 2.9 mmol/L (3.5-5.1)
--- NOTE | 2021-03-11 16:04 | RAD ---
Exam: CT abdomen/pelvis without intravenous contrast Indication: Abdominal pain Comparison: CT abdomen pelvis 12/22/2020 Technique: Helical CT imaging performed of the abdomen and pelvis without the use of intravenous cont rast. Sagittal and coronal reformats were obtained. One or more of the following individualized dose reduction techniques were utilized for this examinat ion: 1. Automated exposure control 2. Adjustment of the mA and/or kV according to patient size 3. Use of iterative reconstruction technique. Findings: Inherently limited evaluation without intravenous contrast. The exam is also limited due to minimal i ntra-abdominal fat in the patient. Lower chest: Lung bases are clear. The heart is normal in size. Liver: Unremarkable. Gallbladder/Biliary Tree: Normal. Pancreas: Normal. Spleen: Unremarkable. Adrenal Glands: Unremarkable Kidneys/Ureters/Bladder: Kidneys are normal in size. No hydronephrosis or nephrolithiasis. Reproductive Organs: Uterus is not well visualized due to limitations of the exam. There is no adnexa l mass. Stomach, small bowel, and colon: Unremarkable noncontrast appearance of the bowel. There is some scat tered residual barium in the colon. Vasculature: Aorta is normal in caliber. Mild calcified aortoiliac atherosclerosis. Lymph Nodes: No obvious lymphadenopathy. Evaluation limited by noncontrast exam. Peritoneum and retroperitoneum: No free fluid or free air. Bones: No acute osseous abnormality. Impression:Unremarkable noncontrast CT of abdomen and pelvis. Electronically signed by: Catalina Wall MD (03/11/2021 4:02 PM) [id number]
[2021-03-11] MEDS ORDERED: FAMOTIDINE 20 MG/2 ML VIAL IVP ONE (16:30)
[2021-03-11] MEDS ORDERED: POTASSIUM CHLORIDE 20 MEQ TABLET.ER. PO ONE (16:30)
[2021-03-11] MEDS ORDERED: LABETALOL 20 MG/4 ML DISP.SYRIN. IVP ONE (17:30)
[2021-03-11] MEDS ORDERED: FAMO20TA5 PO (17:41)
--- NOTE | 2021-03-11 17:42 | ED.ADGEN ---
Past Medical History Past Medical History: Diabetes-Type II, GERD, Hypertension, P.U.D., Other Additional Past Medical Histor: stomach ulcers,CYCLIC VOMITING,SEPSIS,NARCOTIC DEPENDENCE,GASTRITIS Past Surgical History: Other Additional Past Surgical Histo: foot surgery, explor. abd sx Smoking Status: Former Smoker Alcohol Use: Occasionally Drug Use: None General Adult EDM: Chief Complaint: ABDOMINAL PAIN HPI: HPI: Patient is a 56 year old AA female who presents to the ER with complaints of epigastric pain, nausea, and vomiting. Pt is well known to the ER and frequently presents with similar complaints. She denies any diarrhea, fever, cough, body aches, fatigue, chest pain, shortness of breath, dysuria, hematuria, or difficulty voiding. PT states she has vomited at least 10 times since 0400 this morning, she denies any hematemesis. She reports constipation, the patient has been out of her Go Lytely. She denies any illicit drug use. Pt also reports that she has been out of her famotidine for several days. She currently rates her pain a 10/10 on the pain scale, she denies any alleviating factors, the pain is worse with palpation and vomiting. Review of Systems: Review of Systems: Complete ROS is negative unless otherwise noted in the HPI. Current Medications: Current Medications Medications (Trade) Dose Ordered Sig/[facility] Start Time Stop Time Status Last Admin Dose Admin Famotidine (Pepcid Vial) 20 mg 1X ONCE 03/11/21 16:30 03/11/21 16:31 DC 03/11/21 16:32 20 MG Fentanyl Citrate (Fentanyl 2ml Vial) 50 mcg 1X ONCE 03/11/21 17:30 03/11/21 17:31 DC 03/11/21 17:12 50 MCG Labetalol HCl (Normodyne Iv Push) 10 mg 1X ONCE 03/11/21 17:30 03/11/21 17:31 DC 03/11/21 17:13 10 MG Potassium Chloride (Klor-Con) 40 meq 1X ONCE 03/11/21 16:30 03/11/21 16:31 DC 03/11/21 16:32 40 MEQ Prochlorperazine Edisylate (Compazine) 10 mg 1X ONCE 03/11/21 14:30 03/11/21 14:31 DC 03/11/21 15:12 10 MG Sodium Chloride 1,000 ml @ 1,000 mls/hr 1X ONCE 03/11/21 14:00 03/11/21 14:59 DC 03/11/21 15:11 1,000 MLS/HR Allergies: Allergies: Allergies Coded Allergies Type Severity Reaction Last Updated Verified Penicillins Allergy Intermediate HAS TOLERATED AMOXICILLIN 06/04/19 Yes Physical Exam: PE: Constitutional: Well developed, well nourished, no acute distress, non-toxic appearance, appears uncomfortable. [] HENT: Normocephalic, atraumatic, bilateral external ears normal, nose normal. [] Eyes: PERRLA, EOMI, conjunctiva normal, no discharge. [] Neck: Normal range of motion, no stridor. [] Cardiovascular:Heart rate regular rhythm Lungs & Thorax: Respirations even and unlabored, no retractions, no respiratory distress Abdomen: soft, epigastric and LLQ tenderness to palpation, no rebound tenderness, no guarding, no palpable masses Skin: Warm, dry, no erythema, no rash. [] Extremities: No cyanosis, ROM intact, no edema. [] Neurologic: Alert and oriented X 3, no, no sensory, focal deficits noted. [] Psychologic: Affect normal, judgement normal, mood normal. [] Current Patient Data: Labs: Laboratory Tests Test 03/11/21 14:40 03/11/21 15:12 03/11/21 15:20 White Blood Count 12.3 x10^3/uL (4.0-11.0) H Red Blood Count 5.88 x10^6/uL (3.50-5.40) H Hemoglobin 16.0 g/dL (12.0-15.5) H Hematocrit 49.0 % (36.0-47.0) H Mean Corpuscular Volume 83 fL (79-100) Mean Corpuscular Hemoglobin 27 pg (25-35) Mean Corpuscular Hemoglobin Concent 33 g/dL (31-37) Red Cell Distribution Width 17.8 % (11.5-14.5) H Platelet Count 237 x10^3/uL (140-400) Neutrophils (%) (Auto) 80 % (31-73) H Lymphocytes (%) (Auto) 13 % (24-48) L Monocytes (%) (Auto) 6 % (0-9) Eosinophils (%) (Auto) 0 % (0-3) Basophils (%) (Auto) 1 % (0-3) Neutrophils # (Auto) 9.9 x10^3/uL (1.8-7.7) H Lymphocytes # (Auto) 1.6 x10^3/uL (1.0-4.8) Monocytes # (Auto) 0.8 x10^3/uL (0.0-1.1) Eosinophils # (Auto) 0.0 x10^3/uL (0.0-0.7) Basophils # (Auto) 0.1 x10^3/uL (0.0-0.2) Urine Collection Type Unknown Urine Color Yellow Urine Clarity Cloudy Urine pH 7.5 (<5.0-8.0) Urine Specific [place] 1.010 (1.000-1.030) Urine Protein 100 mg/dL (NEG-TRACE) Urine Glucose (UA) 100 mg/dL (NEG) Urine Ketones (Stick) Negative mg/dL (NEG) Urine Blood Small (NEG) Urine Nitrite Negative (NEG) Urine Bilirubin Negative (NEG) Urine Urobilinogen Dipstick 0.2 mg/dL (0.2 mg/dL) Urine Leukocyte Esterase Negative (NEG) Urine RBC 11-20 /HPF (0-2) Urine WBC Occ /HPF (0-4) Urine Squamous Epithelial Cells Mod /LPF Urine Bacteria Few /HPF (0-FEW) Urine Opiates Screen Neg (NEG) Urine Methadone Screen Neg (NEG) Urine Barbiturates Neg (NEG) Urine Phencyclidine Screen Neg (NEG) Urine Amphetamine/Methamphetamine Neg (NEG) Urine Benzodiazepines Screen Neg (NEG) Urine Cocaine Screen Neg (NEG) Urine Cannabinoids Screen Neg (NEG) Urine Ethyl Alcohol Neg (NEG) Sodium Level 143 mmol/L (136-145) Potassium Level 2.9 mmol/L (3.5-5.1) *L Chloride Level 100 mmol/L (98-107) Carbon Dioxide Level 25 mmol/L (21-32) Anion Gap 18 (6-14) H Blood Urea Nitrogen 18 mg/dL (7-20) Creatinine 1.1 mg/dL (0.6-1.0) H Estimated GFR (Cockcroft-Gault) 61.9 BUN/Creatinine Ratio 16 (6-20) Glucose Level 166 mg/dL (70-99) H Calcium Level 9.7 mg/dL (8.5-10.1) Magnesium Level 2.2 mg/dL (1.8-2.4) Total Bilirubin 0.7 mg/dL (0.2-1.0) Aspartate Amino Transferase (AST) 24 U/L (15-37) Alanine Aminotransferase (ALT) 20 U/L (14-59) Alkaline Phosphatase 99 U/L (46-116) Total Protein 9.3 g/dL (6.4-8.2) H Albumin 4.9 g/dL (3.4-5.0) Albumin/Globulin Ratio 1.1 (1.0-1.7) Lipase 48 U/L (73-393) L Laboratory Tests 03/11/21 14:40 Laboratory Tests 03/11/21 15:20 Vital Signs: Vital Signs Date Time Temp Pulse Resp B/P (MAP) Pulse Ox O2 Delivery O2 Flow Rate FiO2 03/11/21 17:45 84 128/92 (104) 100 Room Air 03/11/21 13:26 97.8 12 97.8 EKG: EK-sinus tachycardia rate 115, PACs present, no STEMI, read by Dr. House[] Heart Score: C/O Chest Pain: No Risk Scores: Score 0 - 3: 2.5% MACE over next 6 weeks - Discharge Home Score 4 - 6: 20.3% MACE over next 6 weeks - Admit for Clinical Observation Score 7 - 10: 72.7% MACE over next 6 weeks - Early Invasive Strategies Radiology/Procedures: Radiology/Procedures: PROCEDURE: CT ABDOMEN PELVIS WO CONTRAST Exam: CT abdomen/pelvis without intravenous contrast Indication: Abdominal pain Comparison: CT abdomen pelvis 12/22/2020 Technique: Helical CT imaging performed of the abdomen and pelvis without the use of intravenous contrast. Sagittal and coronal reformats were obtained. One or more of the following individualized dose reduction techniques were utilized for this examination: 1. Automated exposure control 2. Adjustment of the mA and/or kV according to patient size 3. Use of iterative reconstruction technique. Findings: Inherently limited evaluation without intravenous contrast. The exam is also limited due to minimal intra-abdominal fat in the patient. Lower chest: Lung bases are clear. The heart is normal in size. Liver: Unremarkable. Gallbladder/Biliary Tree: Normal. Pancreas: Normal. Spleen: Unremarkable. Adrenal Glands: Unremarkable Kidneys/Ureters/Bladder: Kidneys are normal in size. No hydronephrosis or nephr olithiasis. Reproductive Organs: Uterus is not well visualized due to limitations of the exam. There is no adnexal mass. Stomach, small bowel, and colon: Unremarkable noncontrast appearance of the bowel. There is some scattered residual barium in the colon. Vasculature: Aorta is normal in caliber. Mild calcified aortoiliac atherosclerosis. Lymph Nodes: No obvious lymphadenopathy. Evaluation limited by noncontrast exam. Peritoneum and retroperitoneum: No free fluid or free air. Bones: No acute osseous abnormality. Impression:Unremarkable noncontrast CT of abdomen and pelvis. Electronically signed by: Catalina Wall MD (03/11/2021 4:02 PM) [id number] DICTATED and SIGNED BY: CATALINA WALL MD DATE: 03/11/21 [id number] [] Course & Med Decision Making: Course & Med Decision Making Pertinent Labs and Imaging studies reviewed. (See chart for details) 56-year-old female presents emergency department with complaints of nausea, vomiting, epigastric, and lower left abdominal pain. Work-up included labs, medications, and CT. CBC reveals a hemoglobin of 16 hematocrit of 49, otherwise unremarkable; CMP revealed a potassium of 2.9, patient was given 4 mEq of potassium p.o., creatinine of 1.1, glucose 166, otherwise unremarkable; UA revealed 11-20 red blood cells otherwise unremarkable; patient's drug screen was negative. CT abdomen pelvis revealed no acute findings. The patient was given 1 L normal saline, 10 mg of Compazine, and 50 mcg of fentanyl. Her nausea went away but her pain persisted. The patient was given 20 mg of Pepcid IV, and 50 mcg of fentanyl IV, her pain improved after these medications. While in the emergency department the patient was noted to be hypertensive and tachycardic, she was given 10 mg of IV labetalol and her blood pressure and heart rate both improved. Prescription was written for Pepcid. I encouraged patient to follow-up with her primary care doctor in the next 1 to 2 days, return to the ER if symptoms worsen or fever develop. Patient verbalized an understanding of home care, medications, follow-up, and return to ED instructions and was in agreement with the plan of care. [] Dragon Disclaimer: Dragon Disclaimer: This electronic medical record was generated, in whole or in part, using a voice recognition dictation system. Departure Departure Impression: Primary Impression: Epigastric abdominal pain Additional Impressions: Nausea and vomiting Hypokalemia Disposition: 01 HOME / SELF CARE / HOMELESS Condition: STABLE Referrals: NO PCP (PCP) Patient Instructions: Abdominal Pain (Nonspecific), Hypokalemia-Brief, Nausea a nd Vomiting, [id number] Additional Instructions: Fill prescriptions and use them as directed. Recommend clear fluids for the next 24 hours. Then you may advance to bland foods such as bananas, rice, applesauce, and dry toast. Follow-up with your primary care doctor in the next 1-2 days. Return to the emergency room if your symptoms worsen or if fever develops. [facility] [address] [place] [address] [facility] [address] [place] [address] [facility] [address] [place] [address] [facility] [address] [place] [address] Count Includes [facility] [address] [place] [address] [facility] [address] [place] [address] [facility] [address] [place] [address] [facility] [address] [place] [address] [facility] [address] [place] [address] [facility] [address] [place] [address] Scripts Famotidine (FAMOTIDINE) 20 Mg Tablet 20 MG PO BID for 14 Days, #28 TAB 0 Refills Prov: MATTHEW RENTERIA APRN 03/11/21 Attending Signature Attending Signature I have reviewed the PA/HOOKMAN's note and plan of care. I was available for consultation as needed during the patient's visit in the emergency department. I agree with the clinical impression, plan, and disposition. Problem Qualifiers Additional Impressions: Nausea and vomiting Vomiting type: unspecified Vomiting Intractability: non-intractable Qualified Codes: R11.2 - Nausea with vomiting, unspecified MATTHEW RENTERIA APRN Mar 11, 2021 17:42 KATIE HOUSE DO Mar 14, 2021 13:05
[2021-03-11 17:45] VITALS: BP 128/92
== END 2021-03-11 17:59 | disposition home or self-care (01) ==
LOC: ER 12:42
DX: E87.6 Hypokalemia (principal); R11.2 Nausea with vomiting, unspecified; R10.13 Epigastric pain; E11.9 Type 2 diabetes mellitus without complications; K21.9 Gastro-esophageal reflux disease without esophagitis; I10 Essential (primary) hypertension; Z87.11 Personal history of peptic ulcer disease; Z88.0 Allergy status to penicillin
CPT/HCPCS: 36415; 74176; 80053; 80307; 81001; 83690; 83735; 85025; 93005; 96361; 96374; 96375; 96376; 99285; J0780; J3010; J3490; J7030